=== PATIENT | male | born 1960 | race Caucasian/White ===

== ENCOUNTER 2022-02-19 12:11 | Emergency (ER) | payer OTHER, SELFPAY ==
--- NOTE | ~2022-02-19 | XR_ITS ---
EXAMINATION: XR CHEST CLINICAL INFORMATION: Shortness of breath for several days. Recently worsening. COMPARISON: None TECHNIQUE: 2 views of the chest were obtained. FINDINGS: The lungs are clear. There is no airspace consolidation or groundglass opacity or effusion. No hyperinflation. The costophrenic sulci are clear. There is no pneumothorax or pleural reaction. The heart is normal in size. The hilar and mediastinal contours are normal. Bony structures are unremarkable. XR/XR chest 2V IMPRESSION: Unremarkable examination.
--- NOTE | 2022-02-19 12:16 | ED.SOB ---
HPI - SOB/Dyspnea General Chief Complaint: Dyspnea <ORVILLE Marx - Last Filed: 02/19/22 12:23> Stated Complaint: Difficulty breathing <ORVILLE Marx - Last Filed: 02/19/22 12:23> Time Seen by Provider: 02/19/22 16:01 <ORVILLE Marx - Last Filed: 02/19/22 12:23> Source: patient and family <Renate Gonzalez MD - Last Filed: 02/19/22 17:48> Mode of arrival: ambulatory <Renate Gonzalez MD - Last Filed: 02/19/22 17:48> History of Present Illness HPI Narrative: This is a 62-year-old male who [facility] increasing [facility], he has been worked up by his primary care provider and currently has a repeat in sleep study and pulmonary appointment scheduled in April and May respectively. Patient denies any associated laboratory derangements as he was fully re-evaluated by his primary care provider. He has had no recent travel/no unilateral calf swelling/no palpitations/no dizziness/no chest pain and has actually increased his level of activity due to a semi recent injection for his sciatica. Patient does report that the week of he did experience some cold/flu like symptoms tested himself once for COVID-19 and says that the symptoms resolved in 2-3 days. <Renate Gonzalez MD - Last Filed: 02/19/22 17:48> Related Data Allergies/Adverse Reactions: Allergies Allergy/AdvReac Type Severity Reaction Status Date / Time NSAIDS (Non-Steroidal Allergy Severe other Verified 02/19/22 12:20 Anti-Inflamma <ORVILLE Marx - Last Filed: 02/19/22 12:23> Review of Systems Review of Systems: Pertinent positives and negatives as stated in HPI <Renate Gonzalez MD - Last Filed: 02/19/22 17:48> PMFSH Past Medical History Source: nursing notes reviewed <Renate Gonzalez MD - Last Filed: 02/19/22 17:48> Social History Social History: Social History Advance Directives: Yes Advance Directives Information Provided: No Advance Directives on File: No <ORIVLLE Marx - Last Filed: 02/19/22 12:23> Physical Exam Vital Signs: Vital Signs: Last Vital Signs Temp 98.7 F 02/19/22 12:19 Pulse 70 02/19/22 12:19 Resp 20 02/19/22 12:19 BP 148/73 H 02/19/22 12:19 Pulse Ox 97 02/19/22 12:19 O2 Del Method 02/19/22 12:19 BMI result Body Mass Index 36.0 <ORVILLE Marx - Last Filed: 02/19/22 12:23> Vital Signs: Last Vital Signs Temp 98.7 F 02/19/22 12:19 Pulse 70 02/19/22 12:19 Resp 20 02/19/22 12:19 BP 148/73 H 02/19/22 12:19 Pulse Ox 97 02/19/22 12:19 O2 Del Method 02/19/22 12:19 BMI result Body Mass Index 36.0 VITAL SIGNS: Reviewed. GENERAL: Well developed, well nourished, in no acute distress. HEAD: Normocephalic/atraumatic EYES: PERRLA, EOMI LUNGS: Normal breath sounds. No adventitious sounds or accessory muscle use, no tachypnea. SpO2<97> CARDIOVASCULAR: Regular rate and rhythm without noted murmurs, no JVD or lower extremity edema. ABDOMEN: Soft, non-tender, non-distended with bowel sounds. MUSCULOSKELETAL: No tenderness, deformities, or effusions noted on gross inspection. EXTREMITIES: No cyanosis, clubbing or edema. SKIN: Inspection of the skin reveals no rashes NEUROLOGIC: Alert and oriented x 4. Strength and sensation to light touch were grossly intact x 4. <Renate Gonzalez MD - Last Filed: 02/19/22 17:48> Course Course Course Narrative: RME--62 yo M w/PMHx DM c/o worsening orthopnea x3 days, now with SOB standing x today. Reports feels like he cannot take deep breath. Pt appears SOB in triage with long sentences, lungs CTA, No appreciable pedal edema EKG, Labs, CXR, COVID/flu/RSV ordered in triage <ORVILLE Marx - Last Filed: 02/19/22 12:23> Medical Decision Making Medical Decision Making MDM Narrative: 62-year-old male who presents with shortness of breath and insomnia. 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 Patient states he is currently followed by b2b sales manager through the CT. my interpretation of the workup is that there is no evidence acute infection and given patient's history regarding chronic kidney disease and the absence of reported bleeding that the anemia seen is chronic in nature it is normocytic. Patient has known chronic kidney disease and on discussing with the patient his potassium levels which do not seem to translate to his EKG he states that ?yes my b2b sales manager is aware?. Otherwise, there is no evidence to suggest CHF/PE/cardiac ischemia. All results discussed with the patient at bedside and discussed additional measures for sleep hygiene in the possibility that his recent viral illness was likely contributing to his feelings of shortness of breath. I discussed with patient that I have very low clinical suspicion regarding any PE as he is not describe to me any palpitations or dizziness and EKG is negative for evidence of any heart strain, blood pressure is within normal limits and oxygenation is very good on room air. He is otherwise discharged home in stable condition. Viral testing is negative. <Renate Gonzalez MD - Last Filed: 02/19/22 17:48> Differential Diagnosis Differential Diagnoses: The differential diagnosis associated with the presentation includes <Renate Gonzalez MD - Last Filed: 02/19/22 17:48> I will rule out infection, anemia, electrolyte or renal dysfunction, viral illness, cardiac ischemia. <Renate Gonzalez MD - Last Filed: 02/19/22 17:48> Lab Data [facility] Lab Attestation statement: I reviewed the patient's lab results. <Renate Gonzalez MD - Last Filed: 02/19/22 17:48> Please see the discussion above <Renate Gonzalez MD - Last Filed: 02/19/22 17:48> Result Diagrams: : 02/19/22 12:32 02/19/22 12:32 <ORVILLE Marx - Last Filed: 02/19/22 12:23> Labs: Lab Results 02/19/22 02/19/22 02/19/22 Range/Units 12:32 12:32 12:32 WBC 5.8 (4.8-10.8) X10*3/uL RBC 4.08 L (4.60-5.80) X10*6/uL Hgb 12.0 L (14.0-18.0) g/dl Hct 36.3 L (42.0-52.0) % MCV 89.0 (80.0-98.0) fL MCH 29.4 (27.0-33.0) pg MCHC 33.1 (31.0-36.0) g/dl RDW 12.6 (11.0-16.0) % Plt Count 184 (160-400) X10*3/uL MPV 9.1 L (9.4-12.4) fL Immature Gran % (Auto) 0.7 H (0.0-0.4) % Neut % (Auto) 66.8 (45-73) % Lymph % (Auto) 20.7 (20-40) % [place] % (Auto) 8.8 (2-11) % Eos % (Auto) 2.8 (0-4) % Baso % (Auto) 0.2 (0-2) % Lymph # (Auto) 1.2 (1.2-4.9) X10*3/uL [place] # (Auto) 0.5 (0.1-1.2) X10*3/uL Eos # (Auto) 0.2 (0.0-0.4) X10*3/uL Baso # (Auto) 0.0 (0.0-0.2) X10*3/uL Abs Immat Gran (auto) 0.04 H (0.00-0.03) X10*3/uL Absolute Neuts (auto) 3.9 (2.0-8.3) x10*3/uL Absolute Nucleated RBC 0.000 (0.0-0.012) X10*3/uL Nucleated RBC % (auto) 0.0 (0.0-0.2) /100WBC PT 10.4 (10.0-13.1) SEC INR 0.9 (0.9-1.1) Sodium (135-145) mmol/L Potassium (3.3-5.1) mmol/L Chloride (96-108) mmol/L Carbon Dioxide (22-29) mmol/L Anion Gap (12-20) BUN (9-16) mg/dL Creatinine (0.5-1.4) mg/dL Estim Creat Clear Calc Estimated GFR Random Glucose (60-115) mg/dL Calcium (8.4-10.2) mg/dL Magnesium (1.6-2.6) mg/dL Total Bilirubin (0.0-1.0) mg/dL Direct Bilirubin (0.0-0.5) mg/dL AST (5-37) U/L ALT (0-40) U/L Alkaline Phosphatase (39-117) U/L Troponin I High Sens (<3.5-35.0) ng/L B-Natriuretic Peptide (<100) pg/mL Total Protein (6.5-8.0) g/dL Albumin (3.5-5.0) g/dL Influenza Type A (PCR) NEGATIVE (Negative) Influenza Type B (PCR) NEGATIVE (Negative) RSV RNA Qual (PCR) NEGATIVE (Negative) SARS-CoV-2 RNA (RT-PCR) NEGATIVE (Negative) 02/19/22 02/19/22 02/19/22 Range/Units 12:32 12:32 12:32 WBC (4.8-10.8) X10*3/uL RBC (4.60-5.80) X10*6/uL Hgb (14.0-18.0) g/dl Hct (42.0-52.0) % MCV (80.0-98.0) fL MCH (27.0-33.0) pg MCHC (31.0-36.0) g/dl RDW (11.0-16.0) % Plt Count (160-400) X10*3/uL MPV (9.4-12.4) fL Immature Gran % (Auto) (0.0-0.4) % Neut % (Auto) (45-73) % Lymph % (Auto) (20-40) % [place] % (Auto) (2-11) % Eos % (Auto) (0-4) % Baso % (Auto) (0-2) % Lymph # (Auto) (1.2-4.9) X10*3/uL [place] # (Auto) (0.1-1.2) X10*3/uL Eos # (Auto) (0.0-0.4) X10*3/uL Baso # (Auto) (0.0-0.2) X10*3/uL Abs Immat Gran (auto) (0.00-0.03) X10*3/uL Absolute Neuts (auto) (2.0-8.3) x10*3/uL Absolute Nucleated RBC (0.0-0.012) X10*3/uL Nucleated RBC % (auto) (0.0-0.2) /100WBC PT (10.0-13.1) SEC INR (0.9-1.1) Sodium 143 (135-145) mmol/L Potassium 5.2 H (3.3-5.1) mmol/L Chloride 107 (96-108) mmol/L Carbon Dioxide 29 (22-29) mmol/L Anion Gap 12 (12-20) BUN 49 H (9-16) mg/dL Creatinine 2.16 H (0.5-1.4) mg/dL Estim Creat Clear Calc 41.3 Estimated GFR 31 Random Glucose 193 H (60-115) mg/dL Calcium 9.0 (8.4-10.2) mg/dL Magnesium 2.4 (1.6-2.6) mg/dL Total Bilirubin 0.3 (0.0-1.0) mg/dL Direct Bilirubin < 0.2 (0.0-0.5) mg/dL AST 11 (5-37) U/L ALT 17 (0-40) U/L Alkaline Phosphatase 51 (39-117) U/L Troponin I High Sens 7.6 (<3.5-35.0) ng/L B-Natriuretic Peptide 38 (<100) pg/mL Total Protein 6.2 L (6.5-8.0) g/dL Albumin 4.1 (3.5-5.0) g/dL Influenza Type A (PCR) (Negative) Influenza Type B (PCR) (Negative) RSV RNA Qual (PCR) (Negative) SARS-CoV-2 RNA (RT-PCR) (Negative) <ORIVLLE Marx - Last Filed: 02/19/22 12:23> Lab Results 01/03/23 01/03/23 01/03/23 Range/Units 12:32 12:32 12:32 WBC 5.8 (4.8-10.8) X10*3/uL RBC 4.08 L (4.60-5.80) X10*6/uL Hgb 12.0 L (14.0-18.0) g/dl Hct 36.3 L (42.0-52.0) % MCV 89.0 (80.0-98.0) fL MCH 29.4 (27.0-33.0) pg MCHC 33.1 (31.0-36.0) g/dl RDW 12.6 (11.0-16.0) % Plt Count 184 (160-400) X10*3/uL MPV 9.1 L (9.4-12.4) fL Immature Gran % (Auto) 0.7 H (0.0-0.4) % Neut % (Auto) 66.8 (45-73) % Lymph % (Auto) 20.7 (20-40) % [place] % (Auto) 8.8 (2-11) % Eos % (Auto) 2.8 (0-4) % Baso % (Auto) 0.2 (0-2) % Lymph # (Auto) 1.2 (1.2-4.9) X10*3/uL [place] # (Auto) 0.5 (0.1-1.2) X10*3/uL Eos # (Auto) 0.2 (0.0-0.4) X10*3/uL Baso # (Auto) 0.0 (0.0-0.2) X10*3/uL Abs Immat Gran (auto) 0.04 H (0.00-0.03) X10*3/uL Absolute Neuts (auto) 3.9 (2.0-8.3) x10*3/uL Absolute Nucleated RBC 0.000 (0.0-0.012) X10*3/uL Nucleated RBC % (auto) 0.0 (0.0-0.2) /100WBC PT 10.4 (10.0-13.1) SEC INR 0.9 (0.9-1.1) Sodium (135-145) mmol/L Potassium (3.3-5.1) mmol/L Chloride (96-108) mmol/L Carbon Dioxide (22-29) mmol/L Anion Gap (12-20) BUN (9-16) mg/dL Creatinine (0.5-1.4) mg/dL Estim Creat Clear Calc Estimated GFR Random Glucose (60-115) mg/dL Calcium (8.4-10.2) mg/dL Magnesium (1.6-2.6) mg/dL Total Bilirubin (0.0-1.0) mg/dL Direct Bilirubin (0.0-0.5) mg/dL AST (5-37) U/L ALT (0-40) U/L Alkaline Phosphatase (39-117) U/L Troponin I High Sens (<3.5-35.0) ng/L B-Natriuretic Peptide (<100) pg/mL Total Protein (6.5-8.0) g/dL Albumin (3.5-5.0) g/dL Influenza Type A (PCR) NEGATIVE (Negative) Influenza Type B (PCR) NEGATIVE (Negative) RSV RNA Qual (PCR) NEGATIVE (Negative) SARS-CoV-2 RNA (RT-PCR) NEGATIVE (Negative) 02/19/22 02/19/22 02/19/22 Range/Units 12:32 12:32 12:32 WBC (4.8-10.8) X10*3/uL RBC (4.60-5.80) X10*6/uL Hgb (14.0-18.0) g/dl Hct (42.0-52.0) % MCV (80.0-98.0) fL MCH (27.0-33.0) pg MCHC (31.0-36.0) g/dl RDW (11.0-16.0) % Plt Count (160-400) X10*3/uL MPV (9.4-12.4) fL Immature Gran % (Auto) (0.0-0.4) % Neut % (Auto) (45-73) % Lymph % (Auto) (20-40) % [place] % (Auto) (2-11) % Eos % (Auto) (0-4) % Baso % (Auto) (0-2) % Lymph # (Auto) (1.2-4.9) X10*3/uL [place] # (Auto) (0.1-1.2) X10*3/uL Eos # (Auto) (0.0-0.4) X10*3/uL Baso # (Auto) (0.0-0.2) X10*3/uL Abs Immat Gran (auto) (0.00-0.03) X10*3/uL Absolute Neuts (auto) (2.0-8.3) x10*3/uL Absolute Nucleated RBC (0.0-0.012) X10*3/uL Nucleated RBC % (auto) (0.0-0.2) /100WBC PT (10.0-13.1) SEC INR (0.9-1.1) Sodium 143 (135-145) mmol/L Potassium 5.2 H (3.3-5.1) mmol/L Chloride 107 (96-108) mmol/L Carbon Dioxide 29 (22-29) mmol/L Anion Gap 12 (12-20) BUN 49 H (9-16) mg/dL Creatinine 2.16 H (0.5-1.4) mg/dL Estim Creat Clear Calc 41.3 Estimated GFR 31 Random Glucose 193 H (60-115) mg/dL Calcium 9.0 (8.4-10.2) mg/dL Magnesium 2.4 (1.6-2.6) mg/dL Total Bilirubin 0.3 (0.0-1.0) mg/dL Direct Bilirubin < 0.2 (0.0-0.5) mg/dL AST 11 (5-37) U/L ALT 17 (0-40) U/L Alkaline Phosphatase 51 (39-117) U/L Troponin I High Sens 7.6 (<3.5-35.0) ng/L B-Natriuretic Peptide 38 (<100) pg/mL Total Protein 6.2 L (6.5-8.0) g/dL Albumin 4.1 (3.5-5.0) g/dL Influenza Type A (PCR) (Negative) Influenza Type B (PCR) (Negative) RSV RNA Qual (PCR) (Negative) SARS-CoV-2 RNA (RT-PCR) (Negative) <Renate Gonzalez MD - Last Filed: 02/19/22 17:48> Independent Interpretation I performed an independent interpretation of an: EKG <Renate Gonzalez MD - Last Filed: 02/19/22 17:48> Interpretation: None for comparison. Normal sinus rhythm, HR-64, no STEMI, LA/QRS/QTC is within normal limits. <Renate Gonzalez MD - Last Filed: 02/19/22 17:48> Radiology Impression Radiologist Impression: My interpretation is in agreement with the radiologist's impression radiologic study. <Renate Gonzalez MD - Last Filed: 02/19/22 17:48> Chronic Conditions Patient?s care impacted by: Diabetes and Hypertension <Renate Gonzalez MD - Last Filed: 02/19/22 17:48> Critical Care Time Critical Care Time Critical Care Time: Yes <Renate Gonzalez MD - Last Filed: 02/19/22 17:48> Total Critical Care Time: 30 <Renate Gonzalez MD - Last Filed: 02/19/22 17:48> Attestation: I personally attest to this time spent taking care of the patient. <Renate Gonzalez MD - Last Filed: 02/19/22 17:48> Discharge Plan Discharge Clinical Impression: Insomnia, Breath shortness <ORVILLE Marx - Last Filed: 02/19/22 12:23> Patient Disposition: Home, Self-Care <ORVILLE Marx - Last Filed: 02/19/22 12:23> Instructions: Insomnia (ED), Shortness of Breath (ED) <ORVILLE Marx - Last Filed: 02/19/22 12:23> Additional Instructions: 1. Resume all home medications as prescribed. My recommendation is to discussed with your primary care provider pursuing a cardiac stress test. 2. I recommend that you [facility] in the [facility] 1-2 days. Return to the ER for any worsening symptoms. <ORVILLE Marx - Last Filed: 02/19/22 12:23> Interventions: ED Discharge Assessment Last Done: 02/19/22 17:23 <ORVILLE Marx - Last Filed: 02/19/22 12:23> Discharge Date/Time: 02/19/22 17:24 <ORVILLE Marx - Last Filed: 02/19/22 12:23>
[2022-02-19 12:19] VITALS: BP 148/73; PULSE 70; RESP 20; TEMP 37.1; O2SAT 97; BMI 36.0
--- NOTE | 2022-02-19 12:21 | ECG_ITS ---
Test Reason : SOB Blood Pressure : / mmHG Vent. Rate : 064 BPM Atrial Rate : 064 BPM P-R Int : 146 ms QRS Dur : 076 ms QT Int : 392 ms P-R-T Axes : 049 -27 036 degrees QTc Int : 404 ms Normal sinus rhythm Normal ECG No previous ECGs available Referred By: Kim Villanueva Electronically Signed By:ASHER JHA
[2022-02-19 12:43] LABS: MANUAL DIFF FLAG NO
[2022-02-19 12:45] LABS: Basophils Percent Auto 0.2 % (0-2); Eosinophils Absolute Auto 0.2 X10*3/uL (0.0-0.4); Eosinophils Percent Auto 2.8 % (0-4); Hematocrit 36.3 % (42.0-52.0); Imm Gran Abs Auto 0.04 X10*3/uL (0.00-0.03); Imm Gran Pct Auto 0.7 % (0.0-0.4); Lymphocytes Absolute Auto 1.2 X10*3/uL (1.2-4.9); Lymphocytes Percent Auto 20.7 % (20-40); Mean Corpuscular HGB Conc 33.1 g/dl (31.0-36.0); Mean Corpuscular Hemoglobin 29.4 pg (27.0-33.0); Mean Platelet Volume 9.1 fL (9.4-12.4); Monocytes Absolute Auto 0.5 X10*3/uL (0.1-1.2); Monocytes Percent Auto 8.8 % (2-11); Neutrophils Absolute Auto 3.9 x10*3/uL (2.0-8.3); Neutrophils Percent Auto 66.8 % (45-73); Platelet Count 184 X10*3/uL (160-400); Red Blood Count 4.08 X10*6/uL (4.60-5.80); Red Cell Distribution Width 12.6 % (11.0-16.0); White Blood Count 5.8 X10*3/uL (4.8-10.8)
[2022-02-19 12:49] LABS: INTERNATIONAL NORM RATIO 0.9 (0.9-1.1); Prothrombin Time 10.4 SEC (10.0-13.1)
[2022-02-19 13:03] LABS: Alanine Aminotransferase 17 U/L (0-40); Albumin Level 4.1 g/dL (3.5-5.0); Alkaline Phosphatase 51 U/L (39-117); Anion Gap 12 (12-20); Aspartate Amino Transferase 11 U/L (5-37); Bilirubin Direct < 0.2 mg/dL (0.0-0.5); Bilirubin Total 0.3 mg/dL (0.0-1.0); Blood Urea Nitrogen 49 mg/dL (9-16); Carbon Dioxide 29 mmol/L (22-29); Chloride 107 mmol/L (96-108); Creatinine Clr Calc Pharmacy 41.3; Estimated Glomerular Filt Rate 31; Glucose Random 193 mg/dL (60-115); Magnesium 2.4 mg/dL (1.6-2.6); Potassium 5.2 mmol/L (3.3-5.1); Sodium 143 mmol/L (135-145); Total Protein 6.2 g/dL (6.5-8.0)
[2022-02-19 13:09] LABS: B Type Natriuretic Peptide 38 pg/mL (<100); Troponin-I High Sensitivity 7.6 ng/L (<3.5-35.0)
[2022-02-19 13:23] LABS: Influenza A PCR NEGATIVE (Negative); Influenza B PCR NEGATIVE (Negative); Resp Syncy Virus RNA Qual PCR NEGATIVE (Negative); SARS COV2 PCR INHOUSE NEGATIVE (Negative)
== END 2022-02-19 17:24 | disposition home or self-care (01) ==
PROVIDERS: Physician Assistant; Emergency Provider Student in an Organized Health Care Education/Training Program
DX: G47.00 Insomnia, unspecified (principal); R06.02 Shortness of breath; E11.9 Type 2 diabetes mellitus without complications; I10 Essential (primary) hypertension; Z20.822 Contact with and (suspected) exposure to COVID-19
CPT/HCPCS: 0241U; 36415; 71046; 80048; 80076; 83735; 83880; 84484; 85025; 85610; 93005; 99283

== ENCOUNTER 2022-07-10 13:40 | Emergency (ER) | payer OTHER, SELFPAY ==
--- NOTE | ~2022-07-10 | US_ITS ---
EXAMINATION: US VENOUS ULTRASOUND WITH DOPPLER LOWER EXTREMITY, RIGHT CLINICAL INFORMATION: Lower extremity pain with palpable lump. Rule out DVT COMPARISON: None available. TECHNIQUE: Ultrasound of the deep veins is performed from the hip to the calf with compression sonography and color and pulse Doppler assessment. Spectral analysis with color-flow imaging is performed. FINDINGS: There is normal venous compression and respiratory variation and augmented flow. The visualized common femoral vein, superficial femoral vein, profunda femoral vein, popliteal vein, and the trifurcation region shows no evidence of deep venous thrombosis. There is no significant popliteal fossa cyst. In region of patient's complaint about the medial knee adjacent to the popliteal fossa there is an enlarged varicose vein with some adjacent tissue planes not being well seen which may be related to some degree of edema with no free fluid seen. There appears be some debris within the varicosity and above findings may be related to thrombophlebitis. US/US venous duplex LE RT IMPRESSION: No acute DVT demonstrated in the right lower extremity. Thrombophlebitis of varicosity in region of patient's complaint.
--- NOTE | 2022-07-10 13:55 | ED.LOWEXIN ---
HPI - Extremity Injury (Lower) General Chief Complaint: Extremity Injury, Lower Stated Complaint: ? DVT Time Seen by Provider: 07/10/22 15:36 History of Present Illness HPI Narrative: patient complains of swollen vein on the medial side of the right knee a small bump that he felt, he went to urgent [facility] was sent to the emergency room for no ultrasound to rule out DVT He denies any pain or swelling in the calf or in the back of the thigh, he denies any injury to the leg, he has no shortness of breath no chest pain no pain with deep breath no cough Related Data Allergies Allergy/AdvReac Type Severity Reaction Status Date / Time NSAIDS (Non-Steroidal Allergy Severe other Verified 07/10/22 13:57 Anti-Inflamma hazelnut Allergy Unknown Verified 07/10/22 13:57 [facility] Past Medical History Source: nursing notes reviewed Social History Social History Advance Directives: No Advance Directives Information Provided: Yes Physical Exam Vital Signs: Vital Signs: Last Vital Signs Temp 98.5 F 07/10/22 16:19 Pulse 58 07/10/22 16:19 Resp 17 07/10/22 16:19 BP 140/75 H 07/10/22 16:19 Pulse Ox 98 07/10/22 16:19 O2 Del Method Room Air 07/10/22 16:19 BMI result Body Mass Index 35.2 general appearance no acute distress Head normocephalic atraumatic neck is supple Chest is clear to auscultation bilateral there is no chest wall tenderness Lung sounds are clear full and equal There is no pleuritic pain with deep breath Extremities there is no pedal edema , full range of motion x4 The right medial knee and the lower leg just below the knee there is a varicosity that is slightly palpable, there is no calf tenderness or swelling there is no posterior thigh tenderness or swelling, skin is intact and neurovascular intact distal Patient ambulates with no limp Course Course Course Narrative: RME: 62 yo M w/PMHx DM, sciatica, presenting to the ED from for DVT rule out c/o pain behind R knee w/palpable lump. denies SOB, travel, cigarette smoking, hx clots +small palpable lump to R posterior knee. 1+ b/l LE pitting edema US venous duplex ordered Full HPI, ROS and PE to be performed by primary ED provider. ultrasound was negative for DVT and it noted thrombophlebitis of a varicosity in the region of the patient's complaint Well-appearing patient is advised to use warm soaks and observe the area and to follow with primary doctor for re-evaluation in 1 week if not improved Discharge Plan Discharge Clinical Impression: Thrombophlebitis leg superficial Patient Disposition: Home, Self-Care Additional Instructions: apply warm soaks to the area Follow with your doctor for re-evaluation in 1 week if not better Return to the ER should you develop calf swelling pain in the back of the leg pain in the back of the thigh and we would repeat the ultrasound Most superficial phlebitis resolves on its own Return any time for difficulty breathing chest pain any worse condition or any concerns Interventions: ED Discharge Assessment Last Done: 07/10/22 17:25 Discharge Date/Time: 07/10/22 17:25
[2022-07-10 13:57] VITALS: BP 142/69; PULSE 67; RESP 18; TEMP 36.6; O2SAT 95; BMI 35.2
[2022-07-10 16:19] VITALS: BP 140/75; PULSE 58; RESP 17; TEMP 36.9; O2SAT 98
== END 2022-07-10 17:25 | disposition home or self-care (01) ==
PROVIDERS: Emergency Provider Emergency Medicine
DX: I80.02 Phlebitis and thrombophlebitis of superficial vessels of left lower extremity (principal); R60.0 Localized edema
CPT/HCPCS: 93971; 99283; 99284

== ENCOUNTER → 2023-02-26 15:47 | Outpatient (BNVA) | payer OTHER, SELFPAY | PROVIDERS: Visit Provider Internal Medicine Nephrology ==

== ENCOUNTER 2023-06-03 09:27 | Outpatient (REF) | payer OTHER, SELFPAY ==
[2023-06-03 11:31] LABS: Anion Gap 12 (12-20); Blood Urea Nitrogen 57 mg/dL (9-16); Carbon Dioxide 25 mmol/L (22-29); Chloride 104 mmol/L (96-108); Estimated Glomerular Filt Rate 30; Potassium 5.1 mmol/L (3.3-5.1); Sodium 136 mmol/L (135-145)
[2023-06-03 12:46] LABS: Creatinine Urine 54.29 mg/dL; Protein/Creatinine Ratio, Ur 1.68 (<0.2); Total Protein Urine Random 91 mg/dL (<12)
== END 2023-06-03 09:28 | disposition home or self-care (01) ==
LOC: HO.10HDL 09:27
PROVIDERS: Visit Provider Internal Medicine Nephrology
DX: I12.9 Hypertensive chronic kidney disease with stage 1 through stage 4 chronic kidney disease, or unspecified chronic kidney disease (principal); N18.31 Chronic kidney disease, stage 3a; R80.9 Proteinuria, unspecified
CPT/HCPCS: 36415; 80051; 82565; 82570; 84156; 84520

== ENCOUNTER 2023-06-04 16:03 | Outpatient (AMB) | payer OTHER, SELFPAY ==
[2023-06-04 16:10] VITALS: BP 124/72; PULSE 75; O2SAT 96; BMI 35.9
--- NOTE | 2023-06-04 16:10 | HO.NEPHOV_ITS ---
HPI HPI Comments History of Present Illness Details I had the pleasure seeing Braden in follow-up of his chronic kidney disease, proteinuria on a backdrop of biopsy-proven primary FSGS in the past. He had a renal biopsy which showed FSGS and diabetic nephropathy. His blood sugars are still running high but better. He has lost some weight on Ozempic. He is tolerating Jardiance well. He was on sparsentan which has been changed to Irbesartan. His blood pressure has been at goal. He has no edema. His proteinuria is stable. He has not had any recent medication changes. [facility] Medical History (Updated 02/26/23 @ 16:48 by Gato Álvarez MD) Hypertension FSGS (focal segmental glomerulosclerosis) with nephrosis Chronic kidney disease, stage 3a Proteinuria Surgical History History of tonsillectomy and adenoidectomy History of prostate surgery History of back surgery Social History Alcohol intake: never Patient Tobacco Use Status: Former Tobacco user Vital Signs 06/04/23 16:10 Height 5 ft 7 in Weight 229 lb BMI 35.9 BP 124/72 Blood Pressure Location Rt brachial Position Sitting Pulse 75 Pulse Source Pulse Oximeter Pulse Oximetry (%) 96 Oxygen Delivery Method Room Air Physical Exam Vital Signs: Last Vital Signs Pulse 75 06/04/23 16:10 BP 124/72 06/04/23 16:10 Pulse Ox 96 06/04/23 16:10 Oxygen Delivery Method Room Air 06/04/23 16:10 BMI result Body Mass Index 35.9 Const General: comfortable and no acute distress Orientation/consciousness: patient oriented x3 HEENT Head: Yes normocephalic Mouth: Normal oral and palatal mucosa present Eyes EOM: EOMs intact bilaterally Neck Neck: Yes supple Resp Auscultation: clear to auscultation bilaterally Cardio Jugular venous distension: no JVD Rate: regular rate GI Palpation (GI): Soft to palpation Auscultation: normal bowel sounds General: Yes no CVA tenderness Back/Spine/Pelvis Back: no CVA tenderness Skin General skin exam: no rashes or lesions noted Neuro General: patient oriented x3 and moves all extremities Extrem General: Yes no pedal edema Assessment & Plan Assessment & Plan (1) Proteinuria: Code(s): R80.9 - Proteinuria, unspecified Qualifiers: Proteinuria type: other Qualified Code(s): R80.8 - Other proteinuria (2) Chronic kidney disease, stage 3a: Code(s): N18.31 - Chronic kidney disease, stage 3a (3) FSGS (focal segmental glomerulosclerosis) with nephrosis: Code(s): N04.1 - Nephrotic syndrome with focal and segmental glomerular lesions (4) Hypertension: Code(s): I10 - Essential (primary) hypertension Qualifiers: Hypertension type: secondary to other renal disorders Qualified Code(s): I15.1 - Hypertension secondary to other renal disorders Plan Braden carries a diagnosis of biopsy-proven primary FSGS. He has taken immunosuppression in the past. He has history of prostate cancer needing surgery. His blood pressure is currently at goal. He had been on sparsentan which was changed to Irbesartan( as he is not in the FSGS study anymore) . His proteinuria and his serum creatinine are stable. He is on Jardiance. He has no retinopathy or neuropathy. He needs to lose more weight and keeps his blood sugar under better control. He avoids nonsteroidal anti-inflammatories and maintain good hydration. I did not make any medication changes today. I reiterated the importance of blood sugar control, lifestyle modification, weight loss and importance of monitoring potassium, renal functions and urine protein. I answered all his questions. No prescription refills done today. ( I had offered a referral to Dr. Aviles in the past ( [facility]) who has done a lot of work on FSGS but the patient wanted to think about it. This was not addressed during this visit. Follow-up labs ordered and F/U given. was present during this visit Orders: Orders Blood Urea Nitrogen 06/04/23 I15.1 - Hypertension secondary to other renal disorders, N04.1 - Nephrotic syndrome with focal and segmental glomerular lesions, N18.31 - Chronic kidney disease, stage 3a, R80.8 - Other proteinuria Electrolytes 06/04/23 I15.1 - Hypertension secondary to other renal disorders, N04.1 - Nephrotic syndrome with focal and segmental glomerular lesions, N18.31 - Chronic kidney disease, stage 3a, R80.8 - Other proteinuria Protein Creatinine Ratio, Ur 06/04/23 I15.1 - Hypertension secondary to other renal disorders, N04.1 - Nephrotic syndrome with focal and segmental glomerular lesions, N18.31 - Chronic kidney disease, stage 3a, R80.8 - Other proteinuria Creatinine 06/04/23 I15.1 - Hypertension secondary to other renal disorders, N04.1 - Nephrotic syndrome with focal and segmental glomerular lesions, N18.31 - Chronic kidney disease, stage 3a, R80.8 - Other proteinuria Coding Level of Care Code Est Pt Level 4 (96837) Diagnoses Other proteinuria R80.8 Proteinuria type: other Chronic kidney disease, stage 3a N18.31 FSGS (focal segmental glomerulosclerosis) with nephrosis N04.1 Hypertension secondary to other renal disorders I15.1 Hypertension type: secondary to other renal disorders Results Reviewed Nephrology Results: 2 Hgb 12.0 g/dl (14.0-18.0) L 02/19/22 WBC 5.8 X10*3/uL (4.8-10.8) 02/19/22 Plt Count 184 X10*3/uL (160-400) 02/19/22 Sodium 136 mmol/L (135-145) 06/03/23 Potassium 5.1 mmol/L (3.3-5.1) 06/03/23 Chloride 104 mmol/L (96-108) 06/03/23 Carbon Dioxide 25 mmol/L (22-29) 06/03/23 BUN 57 mg/dL (9-16) H 06/03/23 Creatinine 2.25 mg/dL (0.5-1.4) H 06/03/23 Calcium 9.0 mg/dL (8.4-10.2) 02/19/22 Urine Creatinine 54.29 mg/dL 06/03/23 Protein/Creatinin Ratio 1.68 (<0.2) H 06/03/23
== END 2023-06-04 16:45 | disposition home or self-care (01) ==
PROVIDERS: Visit Provider Internal Medicine Nephrology
DX: R80.8 Other proteinuria (principal); N18.31 Chronic kidney disease, stage 3a; N04.1 Nephrotic syndrome with focal and segmental glomerular lesions; I15.1 Hypertension secondary to other renal disorders
CPT/HCPCS: 99214

== ENCOUNTER → 2023-06-04 16:03 | Outpatient (BNVA) | payer OTHER, SELFPAY | PROVIDERS: Visit Provider Internal Medicine Nephrology | DX: I15.1 Hypertension secondary to other renal disorders (principal); N18.31 Chronic kidney disease, stage 3a; N04.1 Nephrotic syndrome with focal and segmental glomerular lesions; R80.8 Other proteinuria | CPT/HCPCS: 99212 ==

== ENCOUNTER 2023-09-03 16:01 | Outpatient (AMB) | payer OTHER, SELFPAY ==
--- NOTE | 2023-09-03 16:05 | HO.NEPHOV ---
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 He had a renal biopsy which showed FSGS and diabetic nephropathy. His blood sugars are still running high but better. He has lost some weight on Ozempic. He is tolerating Jardiance well. He was on sparsentan which has been changed to Irbesartan. His blood pressure has been at goal. He has no edema. His proteinuria is stable. He has not had any recent medication changes. [facility] Medical History (Updated 02/26/23 @ 16:48 by Gato Álvarez MD) Hypertension FSGS (focal segmental glomerulosclerosis) with nephrosis Chronic kidney disease, stage 3a Proteinuria Surgical History History of tonsillectomy and adenoidectomy History of prostate surgery History of back surgery Social History Alcohol intake: never Patient Tobacco Use Status: Former Tobacco user Review of Systems Const All systems reviewed & are unremarkable except as noted in HPI and below Physical Exam Const General: comfortable and no acute distress Orientation/consciousness: patient oriented x3 HEENT Head: Yes normocephalic Mouth: Normal oral and palatal mucosa present Eyes EOM: EOMs intact bilaterally Neck Neck: Yes supple Resp Auscultation: clear to auscultation bilaterally Cardio Jugular venous distension: no JVD Rate: regular rate GI Palpation (GI): Soft to palpation Auscultation: normal bowel sounds General: Yes no CVA tenderness Back/Spine/Pelvis Back: no CVA tenderness Skin General skin exam: no rashes or lesions noted Neuro General: patient oriented x3 and moves all extremities Extrem General: Yes no pedal edema Results Reviewed Nephrology Results: Hgb 12.0 g/dl (14.0-18.0) L 02/19/22 WBC 5.8 X10*3/uL (4.8-10.8) 02/19/22 Plt Count 184 X10*3/uL (160-400) 02/19/22 Sodium 136 mmol/L (135-145) 06/03/23 Potassium 5.1 mmol/L (3.3-5.1) 06/03/23 Chloride 104 mmol/L (96-108) 06/03/23 Carbon Dioxide 25 mmol/L (22-29) 06/03/23 BUN 57 mg/dL (9-16) H 06/03/23 Creatinine 2.25 mg/dL (0.5-1.4) H 06/03/23 Calcium 9.0 mg/dL (8.4-10.2) 02/19/22 Urine Creatinine 54.29 mg/dL 06/03/23 Protein/Creatinin Ratio 1.68 (<0.2) H 06/03/23 Assessment & Plan Assessment & Plan (1) Chronic kidney disease, stage 3a: Code(s): N18.31 - Chronic kidney disease, stage 3a Category: Medical (2) Proteinuria: Code(s): R80.9 - Proteinuria, unspecified Category: Medical Qualifiers: Proteinuria type: other Qualified Code(s): R80.8 - Other proteinuria (3) Hypertension: Code(s): I10 - Essential (primary) hypertension Category: Medical Qualifiers: Hypertension type: secondary to other renal disorders Qualified Code(s): I15.1 - Hypertension secondary to other renal disorders (4) FSGS (focal segmental glomerulosclerosis) with nephrosis: Code(s): N04.1 - Nephrotic syndrome with focal and segmental glomerular lesions Category: Medical Plan Braden carries a diagnosis of biopsy-proven primary FSGS. He has taken immunosuppression in the past. He has history of prostate cancer needing surgery. His blood pressure is currently at goal. He had been on sparsentan which was changed to Irbesartan( as he is not in the FSGS study anymore) . His proteinuria and his serum creatinine are stable. He is on Jardiance. He has no retinopathy or neuropathy. He needs to lose more weight and keeps his blood sugar under better control. He avoids nonsteroidal anti-inflammatories and maintain good hydration. I did not make any medication changes today. I reiterated the importance of blood sugar control, lifestyle modification, weight loss and importance of monitoring potassium, renal functions and urine protein. I answered all his questions. No prescription refills done today. Follow-up labs ordered and F/U given. was present during this visit Orders: Orders Electrolytes Today I15.1 - Hypertension secondary to other renal disorders, N04.1 - Nephrotic syndrome with focal and segmental glomerular lesions, N18.31 - Chronic kidney disease, stage 3a, R80.8 - Other proteinuria Protein Creatinine Ratio, Ur Today I15.1 - Hypertension secondary to other renal disorders, N04.1 - Nephrotic syndrome with focal and segmental glomerular lesions, N18.31 - Chronic kidney disease, stage 3a, R80.8 - Other proteinuria Creatinine Today I15.1 - Hypertension secondary to other renal disorders, N04.1 - Nephrotic syndrome with focal and segmental glomerular lesions, N18.31 - Chronic kidney disease, stage 3a, R80.8 - Other proteinuria Blood Urea Nitrogen Today I15.1 - Hypertension secondary to other renal disorders, N04.1 - Nephrotic syndrome with focal and segmental glomerular lesions, N18.31 - Chronic kidney disease, stage 3a, R80.8 - Other proteinuria Coding Level of Care Code Est Pt Level 4 (00140) Diagnoses Chronic kidney disease, stage 3a N18.31 Other proteinuria R80.8 Proteinuria type: other Hypertension secondary to other renal disorders I15.1 Hypertension type: secondary to other renal disorders FSGS (focal segmental glomerulosclerosis) with nephrosis N04.1
[2023-09-03 16:10] VITALS: BP 128/78; PULSE 76; O2SAT 95; BMI 36.0
== END 2023-09-03 16:59 | disposition home or self-care (01) ==
PROVIDERS: Visit Provider Internal Medicine Nephrology
DX: N18.31 Chronic kidney disease, stage 3a (principal); R80.8 Other proteinuria; I15.1 Hypertension secondary to other renal disorders; N04.1 Nephrotic syndrome with focal and segmental glomerular lesions
CPT/HCPCS: 99214

== ENCOUNTER → 2023-09-03 16:01 | Outpatient (BNVA) | payer OTHER, SELFPAY | PROVIDERS: Visit Provider Internal Medicine Nephrology | DX: N18.31 Chronic kidney disease, stage 3a (principal); R80.8 Other proteinuria; I15.1 Hypertension secondary to other renal disorders; N04.1 Nephrotic syndrome with focal and segmental glomerular lesions | CPT/HCPCS: 99212 ==

== ENCOUNTER 2023-11-24 08:31 | Outpatient (REF) | payer OTHER, SELFPAY ==
[2023-11-24 11:01] LABS: Anion Gap 11 (12-20); Blood Urea Nitrogen 37 mg/dL (9-16); Carbon Dioxide 26 mmol/L (22-29); Chloride 106 mmol/L (96-108); Estimated Glomerular Filt Rate 31; Potassium 4.4 mmol/L (3.3-5.1); Sodium 139 mmol/L (135-145)
[2023-11-24 11:08] LABS: Creatinine Urine 30.57 mg/dL; Protein/Creatinine Ratio, Ur 2.32 (<0.2); Total Protein Urine Random 71 mg/dL (<12)
== END 2023-11-24 08:32 | disposition home or self-care (01) ==
LOC: HO.10HDL 08:31
PROVIDERS: Visit Provider Internal Medicine Nephrology
DX: N18.31 Chronic kidney disease, stage 3a (principal); I15.1 Hypertension secondary to other renal disorders; N04.1 Nephrotic syndrome with focal and segmental glomerular lesions; R80.8 Other proteinuria
CPT/HCPCS: 36415; 80051; 82565; 82570; 84156; 84520

== ENCOUNTER 2023-11-26 15:07 | Outpatient (AMB) | payer OTHER, SELFPAY ==
--- NOTE | 2023-11-26 15:16 | HO.NEPHOV_ITS ---
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 He had a renal biopsy which showed FSGS and diabetic nephropathy. His blood sugars are still running high but better. He has not lost weight on Ozempic. He is tolerating Jardiance well. He was on sparsentan which has been changed to Irbesartan. His blood pressure has been at goal. He has no edema. He has not had any recent medication changes. [facility] Medical History (Updated 02/26/23 @ 16:48 by Gato Álvarez MD) Hypertension FSGS (focal segmental glomerulosclerosis) with nephrosis Chronic kidney disease, stage 3a Proteinuria Surgical History History of tonsillectomy and adenoidectomy History of prostate surgery History of back surgery Social History Alcohol intake: never Patient Tobacco Use Status: Former Tobacco user Review of Systems Const All systems reviewed & are unremarkable except as noted in HPI and below Physical Exam Vital Signs: Last Vital Signs Pulse 68 11/26/23 15:18 BP 110/60 11/26/23 15:18 Pulse Ox 97 11/26/23 15:18 Oxygen Delivery Method Room Air 11/26/23 15:18 BMI result Body Mass Index 36.5 Const General: comfortable and no acute distress Orientation/consciousness: patient oriented x3 HEENT Head: Yes normocephalic Mouth: Normal oral and palatal mucosa present Eyes EOM: EOMs intact bilaterally Neck Neck: Yes supple Resp Auscultation: clear to auscultation bilaterally Cardio Jugular venous distension: no JVD Rate: regular rate GI Palpation (GI): Soft to palpation Auscultation: normal bowel sounds General: Yes no CVA tenderness Back/Spine/Pelvis Back: no CVA tenderness Skin General skin exam: no rashes or lesions noted Neuro General: patient oriented x3 and moves all extremities Extrem General: Yes no pedal edema Results Reviewed Nephrology Results: Hgb 12.0 g/dl (14.0-18.0) L 02/19/22 WBC 5.8 X10*3/uL (4.8-10.8) 02/19/22 Plt Count 184 X10*3/uL (160-400) 02/19/22 Sodium 139 mmol/L (135-145) 11/24/23 Potassium 4.4 mmol/L (3.3-5.1) 11/24/23 Chloride 106 mmol/L (96-108) 11/24/23 Carbon Dioxide 26 mmol/L (22-29) 11/24/23 BUN 37 mg/dL (9-16) H 11/24/23 Creatinine 2.19 mg/dL (0.5-1.4) H 11/24/23 Calcium 9.0 mg/dL (8.4-10.2) 02/19/22 Urine Creatinine 30.57 mg/dL 11/24/23 Protein/Creatinin Ratio 2.32 (<0.2) H 11/24/23 Assessment & Plan Assessment & Plan (1) Chronic kidney disease, stage 3a: Code(s): N18.31 - Chronic kidney disease, stage 3a Category: Medical (2) FSGS (focal segmental glomerulosclerosis) with nephrosis: Code(s): N04.1 - Nephrotic syndrome with focal and segmental glomerular lesions Category: Medical (3) Hypertension: Code(s): I10 - Essential (primary) hypertension Category: Medical Qualifiers: Hypertension type: secondary to other renal disorders Qualified Code(s): I15.1 - Hypertension secondary to other renal disorders Plan Braden carries a diagnosis of biopsy-proven primary FSGS. He has taken immunosuppression in the past. He has history of prostate cancer needing surgery. His blood pressure is currently at goal. He had been on sparsentan which was changed to Irbesartan( as he is not in the FSGS study anymore) . His serum creatinine are stable. He is on Jardiance. I increased the dose of Jar diance to 25 mg daily. He has no retinopathy or neuropathy. He needs to lose more weight and keeps his blood sugar under better control. He avoids nonsteroidal anti-inflammatories and maintain good hydration. I reiterated the importance of blood sugar control, lifestyle modification, weight loss and importance of monitoring potassium, renal functions and urine protein. I answered all his questions. No other prescription refills done today. Follow-up labs ordered and F/U given. was present during this visit Orders: Orders Creatinine 3 Months I15.1 - Hypertension secondary to other renal disorders, N04.1 - Nephrotic syndrome with focal and segmental glomerular lesions, N18.31 - Chronic kidney disease, stage 3a Electrolytes 3 Months I15.1 - Hypertension secondary to other renal disorders, N04.1 - Nephrotic syndrome with focal and segmental glomerular lesions, N18.31 - Chronic kidney disease, stage 3a Blood Urea Nitrogen 3 Months I15.1 - Hypertension secondary to other renal disorders, N04.1 - Nephrotic syndrome with focal and segmental glomerular lesions, N18.31 - Chronic kidney disease, stage 3a Protein Creatinine Ratio, Ur 3 Months I15.1 - Hypertension secondary to other renal disorders, N04.1 - Nephrotic syndrome with focal and segmental glomerular lesions, N18.31 - Chronic kidney disease, stage 3a Medications: New empagliflozin (Jardiance) 25 mg PO DAILY 90 tabs 4RF Coding Level of Care Code Est Pt Level 4 (00323) Diagnoses Chronic kidney disease, stage 3a N18.31 FSGS (focal segmental glomerulosclerosis) with nephrosis N04.1 Hypertension secondary to other renal disorders I15.1 Hypertension type: secondary to other renal disorders
[2023-11-26 15:18] VITALS: BP 110/60; PULSE 68; O2SAT 97; BMI 36.5
== END 2023-11-26 16:02 | disposition home or self-care (01) ==
PROVIDERS: PCP Internal Medicine; Visit Provider Internal Medicine Nephrology
DX: N18.31 Chronic kidney disease, stage 3a (principal); N04.1 Nephrotic syndrome with focal and segmental glomerular lesions; I15.1 Hypertension secondary to other renal disorders
CPT/HCPCS: 99214

== ENCOUNTER → 2023-11-26 15:07 | Outpatient (BNVA) | payer OTHER, SELFPAY | PROVIDERS: PCP Internal Medicine; Visit Provider Internal Medicine Nephrology | DX: E11.22 Type 2 diabetes mellitus with diabetic chronic kidney disease (principal); I15.1 Hypertension secondary to other renal disorders; N18.31 Chronic kidney disease, stage 3a; R80.9 Proteinuria, unspecified; N04.1 Nephrotic syndrome with focal and segmental glomerular lesions | CPT/HCPCS: 99212 ==

== ENCOUNTER 2024-02-17 09:25 | Outpatient (REF) | payer OTHER, SELFPAY ==
--- OUTSIDE RECORDS SUMMARY | 2024-02-17 09:28 | XMS_ITS | Continuity of Care Document ---
Author Name [facility] Organization [facility] Care Team Providers Care Engine Manager Name Role Phone [facility] Unavailable Unavailable Problems Combined list of problems from Department of Defense and Veterans Affairs facilities. It does not include entries that were removed or entered in error. Problem Status Onset Date Problem Type Date of Resolution Comments Source History of excision of lamina of lumbar vertebra for decompression of spinal cord Active 2016 Condition Oct 11, 2016 Entered By: CESAR ROD Comment: L5-S1 decompression and right foramenectomy 10/08/16 Dr. Bobby Van [facility] Allergic rhinitis Active Condition Au g 2011 Entered By: CESAR ROD Comment: on allergy injections since 2010 [facility] Anemia (SCT 176537992) Active Condition [facility] Benign essential hypertension (SNOMED CT 5412844) Active Condition [facility] Chronic kidney disease stage 4 Active Condition [facility] Constipation [facility] Cramp in lower leg Active Condition [facility] Diabetes mellitus type 2 without retinopathy (SNOMED CT 4446005134650) Active Condition Nov 26 07 Entered By: KAYDEN CHESTER Comment: ANAM done 11/23/06 [facility] No DM retinopathy [facility] Erectile Dysfunction (SCT 902241538) Active Condition [facility] Focal glomerulonephritis (SNOMED CT 49209200) Active Condition Nov 13, 2006 Entered By: KAYDEN CHESTER Comment: focal segmental glomerulosclerosis Dr. Lenz [facility]2007 Entered By: KAYDEN CHESTER Comment: Proteinuria [facility] Hyperlipidemia (SNOMED CT 54834221) Active Condition [facility] Hypothyroid (SNOMED CT 95306253) Active Condition June 18, 2007 Entered By: KAYDEN CHESTER Comment: Dr. Morin [facility] Insomnia Active Condition [facility] ([facility]) Lumbar radiculopathy Active Condition [facility] [place] Malignant Neoplasm of the Prostate (ICD-9-CM 185.) Active Condition [facility] Nephrotic syndrome Active Condition [facility] 2016 Entered By: ZAY SOUZA Comment: Dr. Presley NephrologistMay 2016 Entered By: ZAY SOUZA Comment: [facility] 07/14/16 dehydration, AKIOct 2016 Entered By: ZAY SOUZA Comment: Dr. Presley office note 11/18/16 in [facility] dated 11/19/16.May 21, 2018 Entered By: RADHA DELVALLE Comment: On Both ACEI and ARB per Nephro as of 2018Ju2022 Entered By: Adriane OCONNELL Comment: 2021 on Jardiance and SPARSENTAN 400mg daily [facility] Obesity (SNOMED CT 213449823) Active Condition [facility] Obstructive sleep apnea syndrome Active Condition Aug 17, 2022 Entered By: Adriane OCONNELL Comment: 2022 sleep study moderate LYN, AHI 26- on CPAP [facility] [place] PROSTATE, MALIGN NEOPLASM Active Condition [facility] RHINITIS DUE TO POLLEN Active Condition [facility] Screening for Malignant Neoplasms of colon Active Condition Sep 23, 2011 Entered By: CESAR ROD Comment: 06/2011 repeat 10 yrsDec 2021 Entered By: Adriane OCONNELL Comment: 12/2021 one polyp. Repeat in 5 yearsDec 2021 Entered By: Adriane OCONNELL Comment: 01-15-22 [facility] [place] Alfredo Giordano MD Sessile serrated lesion return 5 years [facility] Diagnosis: ICD-10-CM Z46.0 Encounter for fit/adjst of spectacles and contact lenses Active Diagnosis [facility] Diagnosis: ICD-10-CM E11.9 Type 2 diabetes mellitus without complications Active Diagnosis [facility] Diagnosis: ICD-10-CM G47.30 Sleep apnea, unspecified Active Diagnosis [facility] Diagnosis: ICD-10-CM L72.3 Sebaceous cyst Active Diagnosis [facility] Diagnosis: ICD-10-CM Z23 Encounter for immunization Active Diagnosis [facility] Diagnosis: ICD-10-CM L82.1 Other seborrheic keratosis Active Diagnosis [facility] Diagnosis: ICD-10-CM Z13.89 Encounter for screening for other disorder Active Diagnosis [facility] Diagnosis: ICD-10-CM D48.5 Neoplasm of uncertain behavior of skin Active Diagnosis [facility] Diagnosis: ICD-10-CM G47.09 Other insomnia Active Diagnosis [facility] Diagnosis: ICD-10-CM J06.9 Acute upper respiratory infection, unspecified Active Diagnosis [facility] Diagnosis: ICD-10-CM R05.9 Cough, unspecified Active Diagnosis [facility] Medications Combined list of outpatient medications from Department of Defense and Veterans Affairs facilities.Medications provided include 1) outpatient medications from the last 15 months, and 2) patient-reported medications. Medication Details Route Status Patient Instructions Prescription Expires Prescription Number Last Dispense Date Ordering Provider Order Date Order Qty Source ACETAMINOPH EN 325MG TAB TAKE ONE TABLET BY MOUTH PRN ORAL ACTIVE LUCINA WILSON 2018 [facility] AMLODIPINE BESYLATE 5MG TAB TAKE ONE TABLET BY MOUTH ONCE DAILY FOR BLOOD PRESSURE /HEART, DO NOT TAKE WITH GRAPEFRU IT JUICE ORAL ACTIVE 05/27/2024 [id number] LEV THURMAN 2023 90 [place] AMLODIPINE BESYLATE 5MG TAB TAKE ONE TABLET BY MOUTH ONCE DAILY FOR BLOOD PRESSURE /HEART, DO NOT TAKE WITH GRAPEFRU IT JUICE ORAL DISCONT INUED 05/25/2023 [id number] LEV THURMAN 2022 90 [place] AMOXICILLIN TRIHYDRATE 500MG CAP TAKE ONE CAPSULE BY MOUTH TWICE DAILY FOR INFECTIO N CAUSED BY BACTERIA ORAL 06/29/2023 [id number] Frederic EDGE 2023 20 [place] ASPIRIN 81MG TAB,EC TAKE ONE TABLET BY MOUTH ONCE DAILY ORAL ACTIVE LUCINA WILSON 2018 [facility] ATORVASTATI N CA 80MG TAB TAKE ONE-HALF TABLET BY MOUTH ONCE DAILY FOR CHOLESTE ROL ORAL ACTIVE 08/18/2024 [id number] 4 LEV THURMAN 2023 45 [place] ATORVASTATI N CA 80MG TAB TAKE ONE-HALF TABLET BY MOUTH ONCE DAILY FOR CHOLESTE ROL ORAL DISCONT INUED 11/19/2023 [id number] 4 LEV THURMAN 2022 45 [place] BACLOFEN 10MG TAB TAKE ONE TABLET BY MOUTH THREE TIMES A DAY FOR MUSCLE RIGIDITY (REPLACE S CYCLOBEN ZAPRINE) ORAL ACTIVE 01/30/2025 [id number] LEV THURMAN 2023 270 [place] BACLOFEN 10MG TAB TAKE ONE TABLET BY MOUTH THREE TIMES A DAY FOR MUSCLE RIGIDITY (REPLACE S CYCLOBEN ZAPRINE) ORAL DISCONT INUED 02/19/2024 [id number] 4 VIJAYA DELVALLE 2023 270 [place] BACLOFEN 10MG TAB TAKE ONE TABLET BY MOUTH THREE TIMES A DAY FOR MUSCLE RIGIDITY (REPLACE S CYCLOBEN ZAPRINE) ORAL DISCONT INUED 02/21/2023 [id number] MATTHEW ESQUIVEL 2022 270 [facility] CARBOXYMETH YLCELLULOSE NA 0.5% SOLN,OPH INSTILL 1 DROP INTO EACH EYE FOUR TIMES A DAY FOR DRY EYE OPHTHA LMIC ACTIVE 01/13/2025 [id number] WENDY,JASVIR EY J 2023 45 [facility] CARBOXYMETH YLCELLULOSE NA 0.5% SOLN,OPH INSTILL 1 DROP INTO EACH EYE FOUR TIMES A DAY FOR DRY EYE OPHTHA LMIC DISCONT INUED 01/08/2024 [id number] WENDY,JASVIR EY J 2022 45 [facility] CHOLECALCIF FADI 25MCG (1,000UNIT) TAB TAKE ONE TABLET BY MOUTH ONCE DAILY FOR VITAMIN SUPPLEME NTATION ORAL ACTIVE 01/30/2025 [id number] 5 OMIDPIPORamila JUAN GUNDERSONJonathanHILARYVIOLET Tulio 2024 100 [place] CHOLECALCIF FADI 25MCG (1,000UNIT) TAB TAKE ONE TABLET BY MOUTH ONCE DAILY FOR VITAMIN SUPPLEME NTATION ORAL DISCONT INUED 03/06/2024 [id number] 4 OMIDANALIA PRECIADOCHANJUAN RIZVIJonathanHILARYVIOLET Tulio 2023 100 [place] CLONAZEPAM 0.5MG TAB TAKE ONE TABLET BY MOUTH THREE TIMES DAILY NEEDED FOR PANIC DISORDER ORAL ACTIVE 07/04/2024 [id number] Mica WALLACE 2023 90 [place] CLONAZEPAM 0.5MG TAB TAKE ONE TABLET BY MOUTH THREE TIMES A DAY ORAL DISCONT INUED 01/03/2024 [id number] 4 DAVID ILANAELAYNE BARAKATHILARYVIOLET Antunez 2023 90 [place] CLONAZEPAM 0.5MG TAB TAKE ONE TABLET BY MOUTH THREE TIMES A DAY ORAL DISCONT INUED 06/27/2023 [id number] MATTHEW ESQUIVEL Y 2022 90 [facility] CLONAZEPAM 0.5MG TAB TAKE ONE TABLET BY MOUTH THREE TIMES A DAY ORAL DISCONT INUED 05/02/2023 [id number] MATTHEW ESQUIVEL Y 2022 90 [facility] DEXTROMETHO RPHAN HBR 10MG/GUAIFE NESIN 100MG/5ML (AF & SF) LIQUID TAKE 10 MLS BY MOUTH EVERY 6 HOURS NEEDED FOR COUGH ORAL 06/29/2023 [id number] Frederic EDGE 2023 120 [place] EMPAGLIFLOZ IN 10MG TAB TAKE ONE TABLET BY MOUTH ONCE DAILY FOR DIABETES ORAL HOLD 08/11/2024 [id number] 4 Puma COLEMAN 2023 90 [place] EMPAGLIFLOZ IN 10MG TAB TAKE ONE TABLET BY MOUTH ONCE DAILY FOR DIABETES ORAL DISCONT INUED 05/21/2024 [id number] LEV THURMAN 2023 90 [facility] IELD EMPAGLIFLOZ IN 10MG TAB TAKE ONE TABLET BY MOUTH ONCE DAILY FOR DIABETES ORAL DISCONT INUED 12/25/2023 [id number] LEV THURMAN 2022 90 [facility] IELD EMPAGLIFLOZ IN 25MG TAB TAKE ONE TABLET BY MOUTH ONCE DAILY ORAL ACTIVE 11/26/2024 [id number] JOSE BAH 2023 90 [facility] IELD FISH OIL 1000MG (500MG DHA/EPA) CAP,ORAL TAKE 1 CAPSULE BY MOUTH TWICE DAILY ORAL ACTIVE LEV THURMAN 2021 [place] FLUTICASONE PROPIONATE 50MCG/SPRAY SOLN,NASAL, 16GM INSTILL 1 SPRAY INTO EACH NOSTRIL ONCE DAILY FOR NASAL IRRITATI ON/INFLA MMATION NASAL ACTIVE 01/30/2025 [id number] LEV THURMAN 2023 1 [place] IRBESARTAN 300MG TAB TAKE ONE TABLET BY MOUTH ONCE DAILY FOR HIGH BLOOD PRESSURE ORAL ACTIVE 09/04/2024 [id number] LEV THURMAN 2023 90 [facility] IELD IRBESARTAN 300MG TAB TAKE ONE TABLET BY MOUTH ONCE DAILY FOR HIGH BLOOD PRESSURE ORAL DISCONT INUED 05/05/2024 [id number] LEV THURMAN 2023 90 [facility] IELD LEVOTHYROXI NE NA 100MCG TAB (SYNTHROID) TAKE TWO TABLETS BY MOUTH SUN, MON, TUE, MALCOM, FRI, and SAT AND TAKE ONE TABLET ON Y FOR THYROID - TAKE ON AN EMPTY STOMACH WITH A FULL GLASS OF WATER ORAL ACTIVE 10/06/2024 [id number] 4 Mica WALLACE 2023 180 [place] LEVOTHYROXI NE NA 100MCG TAB (SYNTHROID) TAKE TWO TABLETS BY MOUTH SUN, MON, TUE, MALCOM, FRI, and SAT AND TAKE ONE TABLET ON Y FOR THYROID - TAKE ON AN EMPTY STOMACH WITH A FULL GLASS OF WATER ORAL DISCONT INUED 02/19/2024 [id number] VIJAYA DELVALLE 2023 180 [place] LEVOTHYROXI NE NA 100MCG TAB (SYNTHROID) TAKE TWO TABLETS BY MOUTH SUN, MON, TUE, MALCOM, FRI, and SAT AND TAKE ONE TABLET ON Y FOR THYROID - TAKE ON AN EMPTY STOMACH WITH A FULL GLASS OF WATER ORAL DISCONT INUED 08/13/2023 [id number] 3 LEV THURMAN 2022 180 [place] MAGNESIUM OXIDE 250MG TAB TAKE TWO TABLETS BY MOUTH ONCE DAILY ORAL ACTIVE Puma COLEMAN A 2022 [place] MINERAL OIL,LIGHT/P ETROLATUM (PF) OINT,OPH APPLY THIN RIBBON INTO EACH EYE AT BEDTIME FOR DRY EYE OPHTHA LMIC 01/08/2024 [id number] JASVIR NGUYEN EY J 2022 3 [facility] SEMAGLUTIDE 0.25MG/0.37 5ML INJ,SOLN,PE N,3ML INJECT 0.5MG SUBCUTAN EOUSLY ONCE A WEEK SUBCUT ANEOUS DISCONT INUED 03/06/2024 [id number] 4 LEV THURMAN 2023 1 [place] SEMAGLUTIDE 0.25MG/0.37 5ML INJ,SOLN,PE N,3ML INJECT 0.5MG SUBCUTAN EOUSLY ONCE A WEEK SUBCUT ANEOUS DISCONT INUED (EDIT) 07/31/2023 [id number] JADEN ESCOBAR 2023 1 [place] SEMAGLUTIDE 0.25MG/0.37 5ML INJ,SOLN,PE N,3ML INJECT 0.5MG SUBCUTAN EOUSLY ONCE A WEEK SUBCUT ANEOUS DISCONT INUED 10/19/2023 [id number] Puma COLEMAN 2022 2 [place] SEMAGLUTIDE 1MG/0.75ML INJ,SOLN,PE N,3ML INJECT 1MG SUBCUTAN EOUSLY ONCE A WEEK FOR TYPE 2 DIABETES MELLITUS SUBCUT ANEOUS DISCONT INUED BY PROVIDE R 07/02/2024 [id number] LEV THURMAN 2023 1 [place] SEMAGLUTIDE 1MG/0.75ML INJ,SOLN,PE N,3ML INJECT 1MG SUBCUTAN EOUSLY ONCE A WEEK SUBCUT ANEOUS DISCONT INUED (EDIT) 07/31/2023 [id number] JADEN ESCOBAR 2023 1 [place] SEMAGLUTIDE 2MG/0.75ML INJ,SOLN,PE N,3ML INJECT 2MG SUBCUTAN EOUSLY ONCE A WEEK FOR TYPE 2 DIABETES MELLITUS SUBCUT ANEOUS ACTIVE 01/12/2025 [id number] LEV THURMAN 2023 2 [facility] Allergies, Adverse Reactions, Alerts Combined list of allergies from Department of Defense and Veterans Affairs facilities. It does not include entries that were removed or entered in error. Substance Category Reaction Severity Reaction type Status Date Reported Comments Source KETOROLAC TROMETHAMINE Propensity to adverse reactions to drug (finding) active 7 [facility] LOVASTATIN Propensity to adverse reactions to drug (finding) active 2 [facility] [place] [facility] NONSTEROIDAL ANTI-INFLAMM ATORY Propensity to adverse reactions to drug (finding) Renal impairment active 8 [facility] [place] [facility] NONSTEROIDAL ANTI-INFLAMM ATORY Propensity to adverse reactions to drug (finding) active 3 [facility] SPIRONOLACTO NE Propensity to adverse reactions to drug (finding) Swelling active 9 [facility] Immunizations Combined list of available immunizations from the Department of Defense and Veterans Affairs facilities. Immunization Series Date Given Administered By Site Reaction Lot Number CVX Code Drug Milk Pasteurizer Status Comments Source INFLUENZA, SPLIT VIRUS, TRIVALENT, PF 2023 SANJIV AMADO LEFT DELTO ID [id number] 140 complet ed [facility] INFLUENZA, INJECTABLE, QUADRIVALENT, PRESERVATIVE FREE 2022 MAXIMINO,TAI Guevara RIGHT DELTO ID [id number] 150 complet ed [place] ZOSTER RECOMBINANT 2 2022 ANGE LEWIS DEBORA LEFT ARM [id number] 187 complet ed [id number] 01/10/23 [place] COVID-19 (MODERNA), MRNA, LNP-S, BIVALENT BOOSTER, PF, 50 MCG/0.5 ML OR 25MCG/0.25 ML DOSE 1 2021 JOSE MCNALLY LEFT DELTO ID [id number] 229 complet ed [place] ZOSTER RECOMBINANT 1 2021 187 complet ed [facility] INFLUENZA, UNSPECIFIED FORMULATION 2021 88 complet ed [facility] COVID-19 (PFIZER), MRNA, LNP-S, PF, 30 MCG/0.3 ML DOSE 2 2020 208 complet ed [facility] COVID-19 (PFIZER), MRNA, LNP-S, PF, 30 MCG/0.3 ML DOSE 1 2020 208 complet ed [facility] INFLUENZA, UNSPECIFIED FORMULATION 2020 88 complet ed [facility] TDAP 2020 115 complet ed [place] INFLUENZA, INJECTABLE, QUADRIVALENT, PRESERVATIVE FREE 2019 150 complet ed [place] INFLUENZA, INJECTABLE, MDCK, PRESERVATIVE FREE, QUADRIVALENT 2018 171 complet ed [facility] Administe red by: RADHA MONROE (FME=[phone]). Partner 2 Lot#: [id number] Mfr: SEQIRUS; Dosage: 0.5 [facility] INFLUENZA, SEASONAL, INJECTABLE 2018 141 complet ed [facility] INFLUENZA, SEASONAL, INJECTABLE 2017 141 complet ed Site: Left Deltoid [place] PNEUMOCOCCAL POLYSACCHARID E [id number] 2016 33 complet ed [place] INFLUENZA, SEASONAL, INJECTABLE 2016 141 complet ed Site: Left Deltoid [place] FLU,3 YRS (HISTORICAL) 2015 88 complet ed Site: Left Deltoid [place] FLU,3 YRS (HISTORICAL) 2014 88 complet ed Site: Left Deltoid [place] HEP B, ADULT 3 2014 43 complet ed [facility] ZOSTER (HISTORICAL) 2013 121 complet ed [place] HEPATITIS B VACCINE (HISTORICAL) 2013 43 complet ed 1month [facility] [place] [facility] FLU,3 YRS (HISTORICAL) 2013 88 complet ed Site: Right Deltoid [place] HEPATITIS B VACCINE (HISTORICAL) 2013 43 complet ed BMP [facility] [place] PNEUMOCOCCAL CONJUGATE PCV 13 2013 133 complet ed [place] FLU,3 YRS (HISTORICAL) 2012 88 complet ed Site: Left Deltoid [place] FLU,3 YRS (HISTORICAL) 2011 88 complet ed Site: Left Deltoid [place] FLU,3 YRS (HISTORICAL) 2010 88 complet ed Site: Left Deltoid [place] DTAP, UNSPECIFIED FORMULATION 2010 107 complet ed Site: Left Deltoid [place] FLU,3 YRS (HISTORICAL) 2009 88 complet ed Site: Left Deltoid [place] NOVEL INFLUENZA-H1N 1-09, ALL FORMULATIONS 2009 128 complet ed [employer] [place] FLU,3 YRS (HISTORICAL) 2008 88 complet ed Pt. got his vaccine with his civilian provider! ! [facility] FLU,3 YRS (HISTORICAL) 2007 88 complet ed Site: Left Deltoid [place] FLU,3 YRS (HISTORICAL) 2007 88 complet ed [facility] FLU,3 YRS (HISTORICAL) 2006 88 complet ed [facility] FLU,3 YRS (HISTORICAL) 2006 88 complet ed Site: Left Deltoid [place] PNEUMOCOCCAL, UNSPECIFIED FORMULATION 2006 109 complet ed [facility] FLU,3 YRS (HISTORICAL) 2005 88 complet ed [place] FLU,3 YRS (HISTORICAL) 2004 KARI JAUREGUI L 88 complet ed [place] FLU,3 YRS (HISTORICAL) 2003 PATRIC YOUNG 88 complet ed [place] FLU,3 YRS (HISTORICAL) 2001 SARAH GARCIA 88 complet ed [place] Results Combined list of recent chemistry, hematology and other laboratory results from Department of Defense and Veterans Affairs, ranging from 15 months to all on record, depending upon the facility. Order Name Results Value Reference Range Date Interpretation Specimen Comments Source PROTEIN/C REATININE RATIO PANEL, URINE CREATININE [MASS/VOLUM E] IN URINE 64.72 mg/dL 08/28 Specimen Type: URINE No comment entered. Ordering Provider: ANYI PALMER Report Released Date/Time: Aug 29, 2023 09:24 AM Reporting Lab: [facility] [place] [facility] [address] [facility] [address] Performing Lab: [facility] [place] [facility] [address] [facility] [address] [place] PROTEIN/C REATININE RATIO PANEL, URINE PROTEIN/CRE ATININE [MASS RATIO] IN URINE 1.6 <0.2 - 0.2 08/28 Specimen Type: URINE No comment entered. Ordering Provider: ANYI PALMER Report Released Date/Time: Aug 29, 2023 09:24 AM Reporting Lab: [facility] [place] [facility] [address] [facility] [address] Performing Lab: [facility] [place] [facility] [address] [facility] [address] [place] PROTEIN/C REATININE RATIO PANEL, URINE PROTEIN [MASS/VOLUM E] IN URINE 102.7 mg/dL 0.0 - 20.0 08/28 H Specimen Type: URINE No comment entered. Ordering Provider: ANYI PALMER Report Released Date/Time: Aug 29, 2023 09:24 AM Reporting Lab: [facility] [address] [address] Performing Lab: [facility] [address] [address] [place] ELECTROLY TE PANEL SODIUM [MOLES/VOLU ME] IN SERUM OR PLASMA 141 mmol/L 135 - 145 08/28 Specimen Type: SERUM No comment entered. Ordering Provider: ANYI PALMER Report Released Date/Time: Aug 29, 2023 09:24 AM Reporting Lab: [address] [address] Performing Lab: [facility] [address] [address] [place] ELECTROLY TE PANEL POTASSIUM [MOLES/VOLU ME] IN SERUM OR PLASMA 4.9 mmol/L 3.5 - 5.0 08/28 Specimen Type: SERUM No comment entered. Ordering Provider: ANYI PALMER Report Released Date/Time: Aug 29, 2023 09:24 AM Reporting Lab: [facility] [address] [address] Performing Lab: [facility] [address] [address] [place] ELECTROLY TE PANEL CHLORIDE [MOLES/VOLU ME] IN SERUM OR PLASMA 109 mmol/L 100 - 110 08/28 Specimen Type: SERUM No comment entered. Ordering Provider: ANYI PALMER Report Released Date/Time: Aug 29, 2023 09:24 AM Reporting Lab: [address] [address] Performing Lab: [facility] [address] [facility] [address] [place] ELECTROLY TE PANEL CARBON DIOXIDE, TOTAL [MOLES/VOLU ME] IN SERUM OR PLASMA 23 meq/L 20 - 30 08/28 Specimen Type: SERUM No comment entered. Ordering Provider: ANYI PALMER Report Released Date/Time: Aug 29, 2023 09:24 AM Reporting Lab: [facility] [address] [facility] [address] Performing Lab: [facility] [address] [facility] [address] [place] THYROID T4 FREE(FT4) (WROX) THYROXINE (T4) FREE [MASS/VOLUM E] IN SERUM OR PLASMA 1.31 ng/dL 0.6 - 1.6 08/28 Specimen Type: SERUM No comment entered. Ordering Provider: ANYI PALMER Report Released Date/Time: Mar 06, 2023 09:49 AM Reporting Lab: [facility] [address] [facility] [address] Performing Lab: [facility] [address] [facility] [address] [place] VITAMIN D (25-OH) 25-HYDROXYV ITAMIN D3 [MASS/VOLUM E] IN SERUM OR PLASMA 32 ng/mL 20 - 50 08/28 Specimen Type: SERUM No comment entered. Ordering Provider: ANYI PALMER Report Released Date/Time: Mar 06, 2023 09:49 AM Reporting Lab: [facility] [address] [facility] [address] Performing Lab: [facility] [address] [facility] [address] [place] VITAMIN B12 COBALAMIN (VITAMIN B12) [MASS/VOLUM E] IN SERUM OR PLASMA 407 pg/mL 200 - 900 08/28 Specimen Type: SERUM No comment entered. Ordering Provider: ANYI PALMER Report Released Date/Time: Mar 06, 2023 09:49 AM Reporting Lab: [address] [address] Performing Lab: [address] [address] [place] PSA PROSTATE SPECIFIC AG [MASS/VOLUM E] IN SERUM OR PLASMA < 0.10ng /mL 0.00 - 4.00 08/28 Specimen Type: SERUM No comment entered. Ordering Provider: ANYI PALMER Report Released Date/Time: Mar 06, 2023 09:35 AM Reporting Lab: [address] [address] Performing Lab: [address] [address] [place] HEMOGLOBI N A1C PANEL HEMOGLOBIN A1C/HEMOGLO BIN.TOTAL IN BLOOD BY HPLC 7.1 4.0 - 5.6 08/28 H Specimen Type: BLOOD Comment: Values obtained from A1C measurement s can vary. For atypical A1C assays, a reported value of 7.0 could actually be between 6.72 and 7.28 if measured by a reference method. A reported value of 9.0 could actually be between 8.73 and 9.27. Ref: http://www. ngsp.org/[place] Pdata.asp Ordering Provider: ANYI PALMER Report Released Date/Time: Mar 06, 2023 09:49 AM Reporting Lab: [address] [address] Performing Lab: [address] [address] [place] MICROALBU MIN CREATININ E RATIO PANEL MICROALBUMI N/CREATININ E [MASS RATIO] IN URINE 1278.8 mg/g 0 - 29.9 08/28 H Specimen Type: URINE No comment entered. Ordering Provider: ANYI PALMER Report Released Date/Time: Mar 06, 2023 09:49 AM Reporting Lab: [facility] [address] [facility] [address] Performing Lab: [facility] [facility] [address] [facility] [address] [place] MICROALBU MIN CREATININ E RATIO PANEL MICROALBUMI N [MASS/VOLUM E] IN URINE 82.2 mg/dL 08/28 Specimen Type: URINE No comment entered. Ordering Provider: ANYI PALMER Report Released Date/Time: Mar 06, 2023 09:49 AM Reporting Lab: [facility] [place] [facility] [address] [facility] [address] Performing Lab: [facility] [address] [address] [place] MICROALBU MIN CREATININ E RATIO PANEL CREATININE [MASS/VOLUM E] IN URINE 64.28 mg/dL 08/28 Specimen Type: URINE No comment entered. Ordering Provider: ANYI PALMER Report Released Date/Time: Mar 06, 2023 09:49 AM Reporting Lab: [facility] [address] [address] Performing Lab: [facility] [address] [address] [place] TSH THYROTROPIN [UNITS/VOLU ME] IN SERUM OR PLASMA 1.25 u[IU]/ mL 0.35 - 5.00 08/28 Specimen Type: SERUM No comment entered. Ordering Provider: ANYI PALMER Report Released Date/Time: Mar 06, 2023 09:49 AM Reporting Lab: [facility] [address] [address] Performing Lab: [facility] [address] [address] [place] LIVER FUNCTION PROTEIN [MASS/VOLUM E] IN SERUM OR PLASMA 6.3 g/dL 6.0 - 8.3 08/28 Specimen Type: SERUM No comment entered. Ordering Provider: ANYI PALMER Report Released Date/Time: Mar 06, 2023 09:49 AM Reporting Lab: [facility]TRN [facility] [address] [facility] [phone] Performing Lab: [facility]ITALRCROSSBRID[facility]N [facility]ENTERUSEMONTEFIORE [facility] [address] [facility] [address] [place] LIVER FUNCTION ALBUMIN [MASS/VOLUM E] IN SERUM OR PLASMA 3.7 g/dL 3.5 - 5.0 08/28 Specimen Type: SERUM No comment entered. Ordering Provider: ANYI PALMER Report Released Date/Time: Mar 06, 2023 09:49 AM Reporting Lab: [facility] [address] [address] Performing Lab: [facility] [address] [address] [place] L[place] FUN[place] ALKALINE PHOSPHATASE [ENZYMATIC ACTIVITY/VO LUME] IN SERUM OR PLASMA 49 U/L 40 - 150 08/28 Specimen Type: SERUM No comment entered. Ordering Provider: ANYI PALMER Report Released Date/Time: Mar 06, 2023 09:49 AM Reporting Lab: [facility]N [address] [address] Performing Lab: [facility] TRN [facility] [address] [place] FUN[place] ASPARTATE AMINOTRANSF ERASE [ENZYMATIC ACTIVITY/VO LUME] IN SERUM OR PLASMA 13 U/L 5 - 34 08/28 Specimen Type: SERUM No comment entered. Ordering Provider: ANYI PALMER Report Released Date/Time: Mar 06, 2023 09:49 AM Reporting Lab: [facility]TRN [facility]USE[address] [address] Performing Lab: [facility]RL [facility]GASN [facility]ENTERUSE[address] [address] [place] LIVER FUNCTION ALANINE AMINOTRANSF ERASE [ENZYMATIC ACTIVITY/VO LUME] IN SERUM OR PLASMA 32 U/L 08/28 Specimen Type: SERUM No comment entered. Ordering Provider: ANYI PALMER Report Released Date/Time: Mar 06, 2023 09:49 AM Reporting Lab: [facility] [address] [facility] [address] Performing Lab: [facility] [address] [facility] [address] [facility] BILIRUBIN.T OTAL [MASS/VOLUM E] IN SERUM OR PLASMA 0.3 mg/dL 0.2 - 1.2 08/28 Specimen Type: SERUM No comment entered. Ordering Provider: ANYI PALMER Report Released Date/Time: Mar 06, 2023 09:49 AM Reporting Lab: [facility] [address] [facility] [address] Performing Lab: [facility] [address] [facility] [address] [facility] Vital Signs Combined list of inpatient and outpatient Vital Signs from Department of Defense and Veterans Affairs, ranging from 12 months to all on record, depending upon the facility. Vital Sign Value Date Comments Source SYSTOLIC BLOOD PRESSURE 120 09/04/19 24 13:35:58 [facility] DIASTOLIC BLOOD PRESSURE 74 024 13:35:58 [facility] PULSE OXIMETRY 98 09/04/2023 13:35:58 [facility] WEIGHT 231.2 09/04/2023 13:35:58 [facility] BMI 36kg/m2 09/04/2023 13:35:58 [facility] TEMPERATURE 96.4 09/04/2023 13:35:58 [facility] PULSE 64 09/04/2023 13:35:58 [facility] WEIGHT 232.2 06/24/2023 15:10:18 [facility] BMI 36kg/m2 06/24/2023 15:10:18 [facility] SYSTOLIC BLOOD PRESSURE 118 05/30/19 24 08:33:01 [facility] DIASTOLIC BLOOD PRESSURE 68 024 08:33:01 [facility] PULSE OXIMETRY 96 05/30/2023 08:33:01 [facility] PAIN 0 05/30/2023 08:33:01 [facility] TEMPERATURE 97.3 05/30/2023 08:33:01 [facility] PULSE 75 05/30/2023 08:33:01 [facility] RESPIRATION 18 05/30/2023 08:33:01 [facility] SYSTOLIC BLOOD PRESSURE 132 03/06/19 24 09:03:34 [facility] DIASTOLIC BLOOD PRESSURE 75 024 09:03:34 [facility] PULSE OXIMETRY 97% 03/06/2023 09:03:34 [facility] WEIGHT 237 03/06/2023 09:03:34 [facility] BMI 37kg/m2 03/06/2023 09:03:34 [facility] TEMPERATURE 96.9 03/06/2023 09:03:34 [facility] PULSE 66 03/06/2023 09:03:34 [facility] Encounters Combined list of: 1) Encounters from 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 2) Encounters from the Department of Defense facilities going back up to 280 months. Location Location Details Encounter Type Encounter Number Reason For Visit Attending Provider ADM Date DC Date Status Disposition Source [facility] Out[facility] Encounter [id number] 08/16 [facility] Out[facility] Encounter [id number] 08/16 [facility] [place] MTMS BY PHARM ADDL 15 MIN [id number] Diagnos is: ICD-10- CM E11.9 Type 2 diabete s mellitu s without complic ations< br/> ALYSSA COLEMAN A 08/16 [place] [facility] QNHP OL DIG ASSMT&MGMT 5-10 [id number] Diagnos is: ICD-10- CM E11.9 Type 2 diabete s mellitu s without complic ations< br/> SAMUEL RAMOS A 08/21 [facility] Outpatient Encounter [id number] 08/27 [facility] En[facility] [id number] 08/27 [facility] [place] Outpatient Encounter [id number] 08/28 [place] MTMS BY PHARM ADDL 15 MIN [id number] Diagnos is: ICD-10- CM E11.9 Type 2 diabete s mellitu s without complic ations< br/> ALYSSA COLEMAN ELVIRA A 10/18 [place] [facility] Encounter [id number] EARLE ESQUIVEL IEL Y 10/30 [facility] En[facility] [id number] 11/06 [facility] [id number] 11/07 [facility] Encounter [id number] 11/15 [facility] En[facility] [id number] 11/18 [facility]counter [id number] 11/29 [facility] Encounter [id number] 11/29 [facility] [place] MTMS BY PHARM ADDL 15 MIN [id number] Diagnos is: ICD-10- CM E11.9 Type 2 diabete s mellitu s without complic ations< br/> ALYSSA COLEMAN A 11/29 [place] [facility] Outpatient Encounter [id number] 12/03 [facility] [place] OFF/OP EST JUNE X REQ PHY/QHP [id number] Diagnos is: ICD-10- CM Z23 Encount er for immuniz ation<b r/> JETT STANTON 12/04 [place] [facility] Outpatient Encounter [id number] 12/24 [facility] En[facility] [id number] 12/24 [facility] EYE EXAM&TX ESTAB PT 1/>VST [id number] Diagnos is: ICD-10- CM E11.9 Type 2 diabete s mellitu s without complic ations< br/> NGUYEN,LACE Y J 01/07 [facility] FIT SPECTACLES MULTIFOCAL [id number] Diagnos is: ICD-10- CM Z46.0 Encount er for fit/adj st of spectac les and contact lenses< br/> NGUYEN,LACE Y J 01/07 [facility] REPAIR & ADJUST SPECTACLES [id number] Diagnos is: ICD-10- CM Z46.0 Encount er for fit/adj st of spectac les and contact lenses< br/> CARISSA BLAND 01/31 [facility] Out[facility] Encounter [id number] 02/03 [facility] Out[facility] Encounter [id number] 02/18 [facility] Out[facility] Encounter [id number] 02/18 [facility] Encounter [id number] 02/18 [facility] Out[facility] Encounter [id number] 02/18 [facility] Out[facility] Encounter [id number] 02/18 [facility] Encounter [id number] 02/18 [facility] COLLJ & INTERPJ DATA EA 30 D [id number] Diagnos is: ICD-10- CM G47.30 Sleep apnea, unspeci fied
KEYON MCNALLY 02/19 [facility] En[facility] [id number] JUAN EVANS 02/24 [facility] Out[facility] Encounter [id number] 02/27 [facility] Out[facility] Encounter [id number] 03/06 [facility] OFFICE O/P EST HI 40 MIN [id number] Diagnos is: ICD-10- CM G47.30 Sleep apnea, unspeci fied
JUAN EVANS 03/06 [place] [facility] Outpatient Encounter [id number] 03/07 [facility] OFF/OP EST JUNE X REQ PHY/QHP [id number] Diagnos is: ICD-10- CM G47.09 Other insomni a
MANOLO,W ZOE 03/11 [place] [facility] Outpatient Encounter [id number] 03/13 [facility] CASE MANAGEMENT [id number] Diagnos is: ICD-10- CM G47.09 Other insomni a
MANOLO,W ZOE 03/19 [place] [facility] Out[facility] Encounter [id number] JUAN EVANS M 03/20 [facility] Out[facility] Encounter [id number] 03/25 [facility] Out[facility] Encounter [id number] 03/31 [facility] Out[facility] Encounter [id number] 04/17 [facility] Out[facility] Encounter [id number] 04/17 [facility] Out[facility] Encounter [id number] 04/21 [facility] Out[facility] Encounter [id number] 05/11 [facility] Out[facility]counter [id number] 05/18 [facility] Out[facility] Encounter [id number] Gaby ROSSI 05/19 [facility] Out[facility] Encounter [id number] 05/26 [facility] Out[facility] Encounter [id number] 05/26 [facility] Out[facility] Encounter [id number] MCKENZIE MCCOY 05/28 [facility] Out[facility] Encounter [id number] 05/28 [facility] Out[facility] Encounter [id number] 05/29 [facility] [place] OFF/OP EST MAY X REQ PHY/QHP [id number] Diagnos is: ICD-10- CM R05.9 Cough, unspeci fied
JOSE,ER IC K 05/29 [place] [facility] Out[facility] Encounter [id number] ZACARIAS EDGEA C 05/29 [facility] OFFICE O/P EST LOW 20 MIN [id number] Diagnos is: ICD-10- CM J06.9 Acute upper respira tory infecti on, unspeci fied
ZACARIAS EDGEA C 05/29 [place] [facility] Out[facility] Encounter [id number] 06/03 [facility] Out[facility] Encounter [id number] 06/15 [facility] Out[facility] Encounter [id number] 06/18 [facility] Out[facility] Encounter [id number] 06/25 [facility] Out[facility] Encounter [id number] 06/29 [facility] Out[facility] Encounter [id number] 06/30 [facility] Out[facility] Encounter [id number] 06/30 [facility] Out[facility] Encounter [id number] 07/09 [facility] Out[facility] Encounter [id number] 07/10 [facility] Out[facility] Encounter [id number] 07/17 [facility] MTMS BY PHARM ADDL 15 MIN [id number] Diagnos is: ICD-10- CM E11.9 Type 2 diabete s mellitu s without complic ations< br/> ALYSSA COLEMAN 08/07 [place] [facility] Out[facility] Encounter [id number] 08/12 [facility] Out[facility] Encounter [id number] MITCH VANCE 08/17 [facility] Out[facility] Encounter [id number] 08/17 [facility] QNHP OL DIG ASSMT&MGMT 5-10 [id number] Diagnos is: ICD-10- CM G47.09 Other insomni a
TIFFANY CHUNG 08/17 [facility] En[facility] [id number] 09/02 [facility] Out[facility] Encounter [id number] 09/02 [facility] Out[facility] Encounter [id number] 09/03 [facility] OFFICE O/P EST MOD 30 MIN [id number] Diagnos is: ICD-10- CM D48.5 Neoplas m of uncerta in behavio r of skin
NADAZDINRamilaB NELLY,OG NJENKA M 09/03 [place] [facility] Out[facility] Encounter [id number] 09/28 [facility] UNLISTED SPEC DERM SVC/PX [id number] Diagnos is: ICD-10- CM Z13.89 Encount er for screeni ng for other disorde r
SHOYEYO,O ENRIQUETAOWALE 09/28 [place] [facility] Out[facility] Encounter [id number] 1.09/29 [facility] Outpatient Encounter [id number] Diagnos is: ICD-10- CM L82.1 Other seborrh eic keratos is
HALEY GRAJEDA PH J 09/29 [facility] En[facility] [id number] 09/29 [facility] Out[facility] Encounter [id number] 09/30 [facility] Out[facility] Encounter [id number]/14 [facility] IMMUNIZATI ON ADMIN [id number] Diagnos is: ICD-10- CM Z23 Encount er for immuniz ation<b r/> SUBHA LI 10/30 [facility] Out[facility] Encounter [id number] 11/04 [facility] Out[facility] Encounter [id number] 11/10 [facility] Outpatient Encounter [id number] 11/18 [facility] Out[facility] Encounter [id number] 11/19 [facility] Out[facility] Encounter [id number] 11/24 [facility] OFF[facility] O/P EST MOD 30 MIN [id number] Diagnos is: ICD-10- CM L72.3 Sebaceo us cyst
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 11/25 [facility] En[facility] [id number] 11/27 [facility] Out[facility] Encounter [id number] 12/03 [facility] Outpatient [facility]counter [id number] 12[facility]03 [facility] Out[facility] Encounter [id number] 12/04 [facility] COLLJ & INTERPJ DATA EA 30 D [id number] Diagnos is: ICD-10- CM G47.30 Sleep apnea, unspeci fied
KEYON MCNALLY A 12/21 [facility] Out[facility] Encounter [id number] 12/21 [facility] Outpatient Encounter [id number] 12[facility]24 [facility] Outpatient Encounter [id number] 12/28 [facility] Outpatient Encounter [id number] 12/29 [facility] Outpatient Encounter [id number] 12/30 [facility] Outpatient [facility]counter [id number] 12/30 [facility] Outpatient [facility]counter [id number] 12[facility]30 [facility] Out[facility]counter [id number] 12/31 [facility] Out[facility]counter [id number] [facility] Out[facility]counter [id number] 01/06 [facility] Out[facility] Encounter [id number] 01/07 [facility] Out[facility] Encounter [id number] 01/07 [facility] Out[facility] Encounter [id number] 01/07 [facility] COMPRE OPH EXAM EST PT 1/> [id number] 1. Diagnos is: ICD-10- CM E11.9 Type 2 diabete s mellitu s without complic ations< br/> FERNANDO NGUYEN Y [place] 01/12 [facility] FIT SPECTACLES MONOFOCAL [id number] Diagnos is: ICD-10- CM Z46.0 Encount er for fit/adj st of spectac les and contact lenses< br/> WENDY,JASVIRE Y J 01/12 [facility] Out[facility] Encounter [id number] 01/12 [facility] Out[facility] Encounter [id number] 01/25 [facility] Out[facility]counter [id number] 01/25 [facility] Out[facility] Encounter [id number] 01/27 [facility] Outpatient Encounter [id number] STEVEN ANDERSON 02/09 [facility] Social History Combined list of available smoking, tobacco, and other social history from Department of Defense and Veterans Affairs facilities. Social History Type Response Date Comment Source Tobacco smoking status [facility] VA-TOBACCO FORMER USER 02/18/2023 [facility] History of tobacco use GA-TOBACCO QUIT 15 YRS OR MORE 02[facility]18/2023 [facility] History of tobacco use [facility]ACCO FORMER USER 12/31/2021 [facility] 06[facility]10[facility]2019 [facility] 12/04[facility]2017 [facility] History of tobacco use QUIT TOBACCO USE > 7 YEARS AGO 05/19/2017 [facility] History of tobacco use QUIT TOBACCO USE > 7 YEARS AGO 05/15/2016 reports quitting 27 years ago [facility] History of tobacco use QUIT TOBACCO USE > 7 YEARS AGO 03/21/2015 quit 04/11/1989, smoker 3 ppd x 10 yrs [facility] History of tobacco use HISTORY OF SMOKING 10/20/2003 stopped tobacco 14 years ago [facility] History of tobacco use HISTORY OF SMOKING 09/14/2002 quit 13 years ago [facility] History of tobacco use QUIT TOBACCO USE > 7 YEARS AGO 11/25/2001 quit [facility] History of tobacco use HISTORY OF SMOKING 09/15/2001 quit 12 years ago 04/11/1989 [facility] Plan of Care List of future care activities from Department of [facility] facilities. Additional future care activities may be listed in the Assessment and Plan section. Date/Time Care Activity Care Activity Detail Facili ty 03/15/2024 AMBULATORY - MEDICINE AMBULATORY - MEDICI NE [facility] 01/10/2024 Consult Order COMMUNITY CARE-N EUROLOGY Cons [employer] [facility] 02/16/2024 Consult Order PAIN CLINIC/NHM OUTPT [facility] [employer] [facility] 03/17/2024 Laboratory - Chemistry Order BAS IC METABOLIC PANEL (fasting) BLOOD (SST-SERUM) [facility] 03/17/2024 Laboratory - Chemistry Order IMAN ER FUNCTION BLOOD (SST-SERUM) [facility] 03/17/2024 Laboratory - Chemistry Order LIP ID PANEL FASTING BLOOD (SST-SERUM) [facility] 03/17/2024 Laboratory - Chemistry Order HEM OGLOBIN A1C PANEL BLOOD (LAV-BLOOD) [facility] 03/17/2024 Laboratory - Chemistry Order CBC AND DIFF (AUTO) BLOOD (LAV-BLOOD) [facility] 03/17/2024 Laboratory - Chemistry Order TSH BLOOD (S ST-SERUM) [facility] 03/17/2024 Laboratory - Chemistry Order ANGE ROALBUMIN CREATININE RATIO PANEL URINE (RANDOM) [facility] Advance Directives List of completed, amended, or rescinded Advance Directives on record at Department of [facility] facilities. An actual copy of the Directive is not included. Date Advance Directive Provider Source 07/02/2022 ADVANCE DIRECTIVE SANDRA BROOKS [facility] 08/07/2021 ADVANCE DIRECTIVE RADHA SAHA [facility] 11/28/2020 ADVANCE DIRECTIVE GOLDIE DUTTA [facility]
--- OUTSIDE RECORDS SUMMARY | 2024-02-17 09:28 | XMS_ITS | Continuity of Care Document ---
Author Organization [facility] Address [address] [place] [address], [address] [place] [address]- Care Team Providers Care Gallery Or Museum Curator Name Role Phone Ben Newell MD, Dylan Ferro Primary Care Physician Encounter [facility] Date(s): 12/29/23 - 01/28/24 [facility] [address] [place] [address] Drive [address] [place] [address]- Encounter Type: Triage Allergies, Adverse Reactions, Alerts Substance Criticality Severity Reaction Reaction Severity Status Nuts Active NSAIDs Active Other Food Allergy Hazelnut A ctive Immunizations Given and Recorded Vaccine Date Status Refusal Reason influenza virus vaccine, inactivated 12/07/15 Sy rded influenza virus vaccine, inactivated 1 11/08/13 Re corded influenza virus vaccine, inactivated 12/11/12 Give n influenza virus vaccine, inactivated 2 12/11/10 Gi justin Influenza Live (intranasal) (oldterm) 3 11/16/14 R ecorded hepatitis B adult vaccine 05/12/14 Given hepatitis B adult vaccine 11/12/13 Given hepatitis B adult vaccine 10/12/13 Given Zoster Vaccine Live 4 01/05/14 Recorded pneumococcal 13-valent vaccine 10/12/13 Recorded Pneumococcal Vaccine (oldterm) 5 10/06/13 Given Pneumococcal Vaccine (oldterm) 12/27/05 Given influ virus vac, H1N1, inactive(oldterm) 6 12/04/11 Given Tet/Diphth/Acel, Pertussis (oldterm) 06/19/10 Give n FluLaval (oldterm) 7 11/24/09 Given Influenza Virus Vaccine (oldterm) 11/07/08 Given Influenza Inactive (IM) (oldterm) 12/03/07 Given tetanus-diphtheria toxoids (Td) 8 04/15/02 Given 1Location History: [facility] 2Admin Note: vna 3Result Comment: [11/16/2014] administered [place] 5Admin Note: pneu 13 [facility] 6Admin Note: [place] 7Admin Note: rcvd elsewhere 8Admin Note: historical data Medications amLODIPine 5 mg oral tablet 5 mg, 1, tablet, By Mouth, Daily, Refills 0, Maintenance, 11/22/21 2:07:00 PM EDT, Partial fill uponpatient request if the prescription is for a schedule II opioid drug. Start Date: 11/22/21 Status: Ordered Repeat number: 1 aspirin 81 mg oral tablet 1 tablet = 81 mg, By Mouth, Daily, # 30 tablet, 0 Refills, Maintenance, 01/23/10 11:47:13 AM EST, Tablet Start Date: 01/23/10 Status: Ordered Quantity: 30.0 Unit: tablet Repeat number: 1 atorvastatin 40 mg oral tablet 1 tablet = 40 mg, By Mouth, Daily, # 90 tablet, 0 Refills, Maintenance, 04/20/14 4:04:30 PM EST, Tablet Start Date: 04/20/14 Status: Ordered Quantity: 90.0 Unit: tablet Repeat number: 1 baclofen 10 mg oral tablet 10 mg, 1, tablet, By Mouth, 3 times a day, Refills 0, Maintenance, 11/22/21 2:06:00 PM EDT, Partial fill upon patient request if the prescription is for a schedule II opioid drug. Start Date: 11/22/21 Status: Ordered Repeat number: 1 cholecalciferol 2000 intl units oral tablet See Instructions, 1 tablet By Mouth Daily, 0 Refills, Maintenance, 08/28/16 10:59:28 AM EDT Start Date: 08/28/16 Status: Ordered Repeat number: 1 clonazePAM 0.5 mg oral tablet 1 tablet = 0.5 mg, By Mouth, 3 times a day, 0 Refills, Maintenance, 06/19/22 2:59:00 PM EDT, Tablet, Partial fill upon patient request if the prescription is for a schedule II opioid drug. Start Date: 06/19/22 Status: Ordered Repeat number: 1 CPAP Machine See Instructions, # 1 each, Maintenance, AutoCPAP 8-20 cm H20, use Daily when sleeping, 07/04/22 8:25:00 PM EDT, Supply Start Date: 07/04/22 Status: Ordered Quantity: 1.0 Unit: each Repeat number: 1 Fish Oil By Mouth, 0 Refills, Maintenance, 11/22/21 2:06:00 PM EDT, Partial fill upon patient request if the prescription is for a schedule II opioid drug. Start Date: 11/22/21 Status: Ordered Repeat number: 1 fluticasone 50 mcg/inh nasal spray 2 sprays, Nasal, Daily, # 16 Gm, 11 Refills, Maintenance, 07/15/14 10:43:18 AM EDT, [facility]/pharmacy #[id number], 2 sprays Nasal Daily,x30 days Start Date: 07/15/14 Stop Date: 07/10/15 Status: Ordered Quantity: 16.0 Unit: g Repeat number: 12 irbesartan 300 mg oral tablet 0 Refills, Maintenance, 07/18/23 7:32:00 AM EDT, Partial fill upon patient request if the prescription is for a schedule II opioid drug. Start Date: 07/18/23 Status: Ordered Repeat number: 1 Jardiance 25 mg oral tablet 1 tablet = 25 mg, By Mouth, Daily in AM, # 30 tablet, 0 Refills, Maintenance, 01/06/24 10:26:00 AM EST, Tablet, Partial fill upon patient request if the prescription is for a schedule II opioid drug. Start Date: 01/06/24 Status: Ordered Quantity: 30.0 Unit: tablet Repeat number: 1 loratadine 10 mg oral tablet 10 mg, 1, tablet, By Mouth, Daily, Maintenance Start Date: 07/04/22 Status: Ordered Repeat number: 1 magnesium oxide 500 mg oral tablet 1 tablet = 500 mg, By Mouth, Daily, 0 Refills, Maintenance, 01/15/22 6:56:00 AM EST, Partial fill upon patient request if the prescription is for a schedule II opioid drug. Start Date: 01/15/22 Status: Ordered Repeat number: 1 Ozempic (1 mg dose) 4 mg/3 mL subcutaneous solution = 1 mg, Subcutaneous Injection, Every week, # 3 mL, 0 Refills, Maintenance, 07/18/23 7:32:00 AM EDT,Solution, Partial fill upon patient request if the prescription is for a schedule II opioid drug. Start Date: 07/18/23 Status: Ordered Quantity: 3.0 Unit: mL Repeat number: 1 Synthroid 0.2 mg oral tablet See Instructions, 1 tablet By Mouth fri-friday and 02/18 sat,sun, # 90 Doses, 0 Refills, Maintenance,01/23/10 11:46:26 AM EST, Tablet Start Date: 01/23/10 Status: Ordered Quantity: 90.0 Unit: Doses Repeat number: 1 Vitamin B-12 500 mcg oral tablet 1 tablet = 500 mcg, By Mouth, Daily, once a week on Friday, 0 Refills, Maintenance, 05/06/23 11:22:00 AM EDT, Partial fill upon patient request if the prescription is for a schedule II opioid drug. 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 Familial hyperlipidemia Confirmed Active Focal segmental glomerulosclerosis 2 Confirmed Active Herniated lumbar intervertebral disc 3 Confirmed Active Lumbar radiculitis Confirmed Active Cancer of prostate 4 Confirmed Active Migraine Confirmed Active Obstructive sleep apnea Confirmed Active Serrated polyp of colon 5 Confirmed 01/18/22 Active Severe obesity (BMI 35.0-39.9) with comorbidity Confirmed Active Vitamin D deficiency Confirmed Active 1counsel 2past biopsy, Dr Lenz Nephrology following 3MRI August 2012 4radical prostatectomy, 5repeat screening in 2026 Social History Social History Type Response Smoking Status Former smoker; Type: Cigarettes; Number of years: 10; Total pack years: 30; Started at age: 19; Stopped at age: 29; entered on: 10/12/13 Sex Sex Representation Male (finding) Patient Care team information Care Team Personnel Name: Tanna Almaraz [facility] Nurse Member Role: Lifetime Consulting Physician Name: Ben Newell MD, Dylan Ferro Position: Reference Physician Member Role: PCP Address: [address] [place] [address] Telecom: Care Team Related Persons Name: YVES SMILEY Insurance Providers Guarantor name: NA Health Plan Information #: 1 Payer: NAKITA MENDOZA Member Number: NA Policy Number: NA Group Number: NA
--- OUTSIDE RECORDS SUMMARY | 2024-02-17 09:28 | XMS_ITS | Continuity of Care Document ---
Author Organization [facility] Address [address] [place] [address], [address] [place] [address]- Care Team Providers Care Primary Substance Abuse Counselor Name Role Phone Ben Newell MD, Dylan Ferro Primary Care Physician Encounter [facility] Date(s): 12/30/23 - 01/29/24 [facility] [address] [place] [address] Drive [address] [place], [place] [address] Referring Physician: Nasreen Kaur Encounter Type: Triage Allergies, Adverse Reactions, Alerts Substance Criticality Severity Reaction Reaction Severity Status Nuts Active Other Food Allergy Hazelnut A ctive NSAIDs Active Immunizations Given and Recorded Vaccine Date Status [...] toxoids (Td) 8 04/15/02 Given 1Location History: [facility] 2Admin Note: vna 3Result Comment: [11/16/2014] administered [place] 4[place]: [place] 5Admin Note: pneu 13 pt rcvd at the or hospital 6Admin Note: or 7Admin Note: rcvd elsewhere 8Admin Note: historical [...] a schedule II opioid drug. Start Date: 5/3/23 Status: Ordered Repeat number: 1 CPAP Machine [...] 11 Refills, Maintenance, 07/15/14 10:43:18 AM EDT, [facility]/pharmacy #[id number], 2 sprays Nasal Daily,x30 days Start [...] Care Team Personnel Name: Tanna Almaraz Position: [facility] Nurse Member Role: Lifetime Consulting Physician Name: Ben Newell MD, Dylan Ferro Position: Reference Physician Member Role: PCP Address: [address] [place] [address] Telecom: Care Team Related Persons Name: YVES SMILEY Insurance Providers Guarantor name: NA Health Plan Information #: 1 Payer: NAKITA MENDOZA Member Number: NA Policy Number: DENISE Group Number: NA
--- OUTSIDE RECORDS SUMMARY | 2024-02-17 09:28 | XMS_ITS | Continuity of Care Document ---
Author Organization [facility] Address [address] [place] [address], [address] [place] [address]- Care Team Providers Care Rollout Manager Name Role Phone Ben Newell MD, Dylan Ferro Primary Care Physician Encounter [facility] [place] Date(s): 12/29/23 - 01/28/24 [facility] [address] [place] [address] Drive [address] [place], [place] [address] Attending Physician: Admtr, Ar8 Admitting Physician: AdmtrCristhian Referring Physician: Admtr, Ar8 Encounter Type: Triage Allergies, Adverse Reactions, Alerts [...] toxoids (Td) 8 04/15/02 Given 1Location History: [facility] 2Admin Note: vna 3Result Comment: [11/16/2014] administered [place] 4[place]: [place] 5Admin Note: pneu [facility] 6Admin Note: mo 7Admin Note: rcvd elsewhere 8Admin Note: historical [...] 11 Refills, Maintenance, 07/15/14 10:43:18 AM EDT, [facility]/pharmacy #[id number], 2 sprays Nasal Daily,x30 days [...] Care Team Personnel Name: Tanna Almaraz Position: [facility] Nurse Member Role: Lifetime Consulting Physician Name: Ben Newell MD, Dylan Ferro Position: Reference Physician Member Role: PCP Address: [address] [place] [address] Telecom: Care Team Related Persons Name: YVES SMILEY Insurance Providers Guarantor name: DENISE Health Plan Information #: 1 Payer: NAKITA MENDOZA Member Number: NA Policy Number: NA Group Number: NA
--- OUTSIDE RECORDS SUMMARY | 2024-02-17 09:29 | XMS_ITS ---
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 Organization [facility] Address [address] [place] [address] Care Team Providers Care Manager Hematology Name Role Phone LEV OCONNELL Primary Care Provide r Unavailable Insurance Providers: All historical and current Section Date Range: From patient's date of to the date document was created. This section includes the names of all active insurance providers for the patient. Insurance Provider Type of Coverage Plan Name Start of Policy Coverage End of Policy Coverage Group Number Member ID Insurance Provider's Telephone Number Policy Prasad's Name Patient's Relationship to Policy Prasad [employer] PREFERRED PROVIDER ORGANIZAT ION (PPO) FED EMPLO YEES Jan 26, 2020 [id number] ELIZABETH SMILEY JR PATIENT AETNA PREFERRED PROVIDER ORGANIZAT ION (PPO) [place] EMPL [facility] Feb 25, 2016 [id number] [phone] ELIZABETH SMILEY JR PATIENT AETNA PREFERRED PROVIDER ORGANIZAT ION (PPO) [place] EMPL [facility] Feb 25, 2016 [id number] ELIZABETH SMILEY PATIENT [employer]ET[employer] PREFERRED PROVIDER ORGANIZAT ION (PPO) [place]NE [place] EMPLO YE Feb 25, 2016 [id number] ELIZABETH SMILEY JR PATIENT AET[employer] PREFERRED PROVIDER ORGANIZAT ION (PPO) DWAYNE MORALESO MIMI [facility]OO[facility] Feb 24, 2016 [id number] ELIZABETH SMILEY PATIENT AETNA PHARMACY MANAGEMENT PRESCRIPT ION DWAYNE AL DEEP COOLEY Jan 26, 2020 [id number] ELIZABETH SMILEY JR PATIENT [employer]ET[employer] PHARMACY MANAGEMENT PRESCRIPT ION DAIANA Feb 25, 2016 [id number] ELIZABETH SMILEY PATIENT [employer] PHARMACY MANAGEMENT PRESCRIPT ION DWAYNE AL MIO MIMI Feb 25, 2016 [id number] ELIZABETH SMILEY PATIENT AETNA RX PRESCRIPT ION DWAYNE MORALESO MIMI COOLEY Feb 25, 2016 [id number] ELIZABETH SMILEY PATIENT AETNA RX PRESCRIPT ION FEP Feb 25, 2016 [id number] ELIZABETH SMILEY JR PATIENT [employer] POINT OF SERVICE [employer] Mar 20, 2002 [id number] ELIZABETH SMILEY PATIENT [employer]* POINT OF SERVICE Mar 20, 2002 [id number] ELIZABETH SMILEY PATIENT Selected Encounter This section includes the information on record at [place] for the Encounter. Date/Time Encounter Type Encounter Description Reason Pro vider Source Mar 07, 2023 01:26 PM Outpatient Encounter PRIMARY CARE/MEDICINE [facility] Encounter Template Text not used by NE Plan of Treatment: Future Appointments (+ 6 months) and Future Tests (+/- 45 days) The Plan of Treatment section includes future care activities for the patient from all [place] treatmentfacilities. This section includes future appointments and future orders which are active, pending or scheduled. Future Appointments This section includes appointments that were scheduled to occur 6 months from the date of the Encounter, up to a maximum of 20 appointments. The data comes from all [place] treatment facilities. Appointment Date/Time Appointment Type Appointme nt Facility Name Mar 11, 2023 02:00 PM AMBULATORY - PS[facility]CHIATRY [facility] Mar 19, 2023 01:30 PM AMBULATORY - PS[facility]CHIATRY [facility] May 30, 2023 08:00 AM AMBULATORY - MEDICINE [facility] May 30, 2023 08:15 AM [facility] Jun 04, 2023 04:00 PM AMBULATORY - [place]ICINE [place] [facility] [place] [facility] June 24, 2023 03:00 PM [facility] Aug 08, 2023 03:00 PM AMBULATORY - MEDICINE [place] [facility] [place] [facility] Aug 13, 2023 03:10 PM AMBULATORY - MEDICINE [place] [facility] [place] [facility] Sep 04, 2023 01:30 PM AMBULATORY - MEDICINE [facility] Lab Results: +/- 30 days of the encounter This section includes the Chemistry and Hematology Lab Results on record with [place] for the patient. Radiology Reports and Pathology Reports are provided separately, in subsequent sections. Lab Results This section contains the Chemistry/Hematology Results that were resulted 30 days before or 30 daysafter the date of the Encounter. Date/Time Source Result Type Result - Unit Interpretation Reference Range Comment Feb 21, 2023 07:49 AM [facility] BASIC METABOLIC PANEL (fasting) Specime n Type: SERUM No comment entered. Ordering Provider: LEV LIZAMA Report Released Date/Time: Feb 18, 2023 02:37 PM Reporting Lab: [address] [address] Performing Lab: [address] [address] UREA NITROGEN 47 mg/dL H 7-25 GLUCOSE 155 mg/dL H 65-100 SODIUM 140 mmol/L 135-145 POTASSIUM 4.8 mmol/L 3.5-5.0 CHLORIDE 106 mmol/L 100-110 CO2 26 meq/L 20-30 CREATININE, Serum 2.19 mg/dL H 0.50-1.40 eGFR(CKD-EPI 2020) 33 mL/min L >60 Feb 21, 2023 07:49 AM [facility] HEMOGLOBIN A1C PANEL Specimen Type: BLOOD Comment: Values obtained from A1C measurements can vary. For atypical A1C assays, a reported value of 7.0 could actually be between 6.72 and 7.28 if measured by a reference method. A reported value of 9.0 could actually be between 8.73 and 9.27. Ref: http://www.ngs p.org/CAPdata. asp Ordering Provider: LEV LIZAMA Report Released Date/Time: Feb 18, 2023 02:37 PM Reporting Lab: [address] [address] Performing Lab: [address] [address] HEMOGLOBIN A1C 7.0 H 4.0-5.6 Feb 21, 2023 07:49 AM [facility] LIPID PANEL FASTING Specimen Type: SERUM No comment entered. Ordering Provider: LEV LIZAMA Report Released Date/Time: Feb 18, 2023 02:37 PM Reporting Lab: [address] [address] Performing Lab: [address] [address] CHOLESTEROL 181 mg/dL TRIGLYCERIDE 244 mg/dL H 0-150 LDL calculated 105 mg/dL 0-129 CHOL/HDL 6.7 HDL CHOLESTEROL 27 mg/dL L 40-60 Feb 21, 2023 07:49 AM [facility] LIVER FUNCTION Specimen Type: SERUM No comment entered. Ordering Provider: LEV LIZAMA Report Released Date/Time: Feb 18, 2023 02:37 PM Reporting Lab: [address] [address] Performing Lab: [address] [address] PROTEIN,TOTAL 6.1 g/dL 6.0-8.3 ALBUMIN 3.8 g/dL 3.5-5.0 ALKALINE PHOSPHATASE 49 U/L 40-150 AST 10 U/L 5-34 ALT 15 U/L BILIRUBIN, TOTAL 0.3 mg/dL 0.2-1.2 Feb 21, 2023 07:49 AM [facility] TSH Specimen Type: SERUM No comment entered. Ordering Provider: LEV LIZAMA Report Released Date/Time: Feb 18, 2023 02:37 PM Reporting Lab: [facility] [address] [facility] [address] Performing Lab: [facility] [address] [address] TSH 0.69 u[IU]/mL 0.35-5.00 Feb 21, 2023 07:49 AM [facility] CBC AND DIFF (AUTO) Specimen Type: BLOOD No comment entered. Ordering Provider: LEV LIZAMA Report Released Date/Time: Feb 18, 2023 02:37 PM Reporting Lab: [facility] [address] [address] Performing Lab: [facility] [address] [address] WBC 6.00 10*3/uL 4.50-11.00 RBC 4.32 10*6/uL 4.23-5.66 HGB 12.8 g/dL 12.8-17 HCT 38.8 L 39.2-50.4 MCV 89.8 fL 82-99 MCHC 33.0 g/dL 30.8-35.1 PLT 222 10*3/uL 140-360 RDW-CV 12.4 12.0-16.0 [place], Abs 0.56 10*3/uL 0.30-1.10 MCH 29.6 pg 26.2-32.6 Neut % 70.5 43.7-75.8 Lymph % 16.2 14.0-42.3 [place] % 9.3 5.1-13.7 Eos % 3.2 0.4-6.8 Baso % 0.5 0.1-2.0 Neut, Abs 4.23 10*3/uL 2.20-7.60 Lymph, Abs 0.97 10*3/uL L 1.00-3.20 Eos, Abs 0.19 10*3/uL 0.03-0.44 Baso, Abs 0.03 10*3/uL 0.01-0.13 Immature Gran % 0.3 0.0-0.7 Immature Gran, Abs 0.02 10*3/uL 0.00-0.06 Social History: Smoking Status (Most current) and Tobacco Use (All prior to encounter date) This section includes the most current, and the historical, smoking and tobacco- related health factors from the NE facility where the Encounter took place. Current Smoking Status This section includes the most current smoking, or tobacco-related health factor, from the NE facility where the Encounter took place. Date/Time Current Smoking Status Comment Corina ity Feb 18, 2023 02:31 PM NE-TOBACCO QUIT 15 YRS OR MORE [facility] Tobacco Use History This section includes a history of the smoking, or tobacco-related health factors, that were collected on or before the date of the Encounter. The data comes from the NE facility where the Encounter took place. Date/Time Smoking Status/Tobacco Use Comment F acroger Feb 18, 2023 02:31 PM NE-TOBACCO QUIT 15 YRS OR MORE [facility] Dec 31, 2021 01:00 PM VA-TOBACCO FORMER USER [facility] Dec 31, 2021 01:00 PM NE-TOBACCO QUIT 15 YRS OR MORE [facility] Advance Directives: All historical and current Section Date Range: From patient's date of to the date document was created. This section includes ALL of a patient's completed or amended NE Advance and Rescinded Directives. The entries below indicate that a directive exists for the patient, but an actual copy is not included with this document. The data comes from all NE facilities. Date Advance Directives Provider Source July 02, 2022 ADVANCE DIRECTIVE [facility] Aug 07, 2021 ADVANCE DIRECTIVE RADHA SAHA [facility] Nov 28, 2020 ADVANCE DIRECTIVE GOLDIE DUTTA [facility] Encounter Notes: All associated encounter notes This section contains the clinical notes associated to the Encounter. Date/Time Encounter Note(s) Provider Source Mar 07, 2023 03:45 PM PRIMARY CARE SECUR E MESSAGING: LOCAL TITLE: PRIMARY CARE SECURE MESSAGING STANDARD TITLE: PRIMARY CARE SECURE MESSAGING DATE OF NOTE: MAR 07, 2023@15:45 ENTRY DATE: MAR 07, 2023@15:45:45 AUTHOR: JC GARCIA COSIGNER: URGENCY: STATUS: COMPLETED ------Original Message ------ Sent: 03/07/2023 03:45 PM ET From: JC GARCIA To: ELIZABETH SMILEY Subject: Medication:Formulary questions Good Afternoon, We received your message and spoke with the pharmacy. They stated that the medication you are inquiring about is formulary. I hope this information is helpful. Sincerely, TAMICA Westfall /bienvenido/ JC GARCIA RN REGISTERED NURSE Signed: 03/07/2023 15:45 JC GARCIA [facility] Mar 07, 2023 01:26 PM PRIMARY CARE QuenchUR E MESSAGING: LOCAL TITLE: PRIMARY CARE SECURE MESSAGING STANDARD TITLE: PRIMARY CARE SECURE MESSAGING DATE OF NOTE: MAR 07, 2023@13:26 ENTRY DATE: MAR 07, 2023@13:26:17 AUTHOR: EDUARDO OHARA EXP COSIGNER: URGENCY: STATUS: COMPLETED PRIMARY CARE SECURE MESSAGING Has ADDENDA ------Original Message ------ Sent: 03/07/2023 12:56 PM ET From: ELIZABETH SMILEY To: Adriane OCONNELL_[facility] Subject: Medication:Formulary questions Looking to find out if Irbesarten [facility] not. /bashir MENESES Signed: 03/07/2023 13:26 Receipt Acknowledged By: 03/07/2023 15:42 /bashir GARCIA RN REGISTERED NURSE 03/10/2023 08:27 /bienvenido/ MAXIMO HOFFMAN LPN LPN 03/07/2023 ADDENDUM STATUS: COMPLETED Secure message sent to the . /bashir GARCIA RN REGISTERED NURSE Signed: 03/07/2023 15:46 EDUARDO OHARA [facility]
--- OUTSIDE RECORDS SUMMARY | 2024-02-17 09:29 | XMS_ITS | Encounter Summary ---
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 [place] Organization [facility] [place] Address [address] [place] [address] Care Team Providers Care Building Supplies Salesperson Retail Name Role Phone LEV OCONNELL Primary Care [...] (PPO) FED EMPLO YE[facility] Jan 26, 2020 [id number] [phone] ELIZABETH SMILEY JR PATIENT [employer] PREFERRED PROVIDER ORGANIZAT ION (PPO) DWAYNE AL EMPLO [facility] Feb 25, 2016 [id number] ELIZABETH SMILEY JR PATIENT [employer] PREFERRED PROVIDER ORGANIZAT ION (PPO) DW[facility]NE AL EMPL [facility] Feb 25, 2016 [id number] ELIZABETH SMILEY JR PATIENT [employer] PREFERRED PROVIDER ORGANIZAT ION (PPO) DWAYNE AL EMPL [facility] Feb 25, 2016 [id number] ELIZABETH SMILEY PATIENT [employer] PREFERRED PROVIDER ORGANIZAT ION (PPO) DWAYNE AL EMPLO MIMI COOLEY Feb 24, 2016 [id number] ELIZABETH SMILEY PATIENT [employer] PHARMACY MANAGEMENT PRESCRIPT ION DWAYNE AL EMPLO MIMI COOLEY Jan 26, 2020 [id number] ELIZABETH SMILEY JR PATIENT [employer] PHARMACY MANAGEMENT PRESCRIPT ION ALICIAFT Feb 25, 2016 [id number] [phone] ELIZABETH SMILEY PATIENT [employer] PHARMACY MANAGEMENT PRESCRIPT ION DWAYNE AL EMPLO MIMI Feb 25, 2016 [id number] ELIZABETH SMILEY PATIENT AET[employer] RX PRESCRIPT ION DWAYNE AL EMPLO MIMI Feb 25, 2016 [id number] ELIZABETH SMILEY PATIENT AETNA [facility] Feb 25, 2016 [id number] ELIZABETH SMILEY JR PATIENT [employer] POINT OF SERVICE [employer] Mar 20, 2002 [id number] ELIZABETH SMILEY PATIENT [employer]IG[employer]* POINT OF SERVICE Mar 20, 2002 [id number] ELIZABETH SMILEY PATIENT Selected Encounter This section includes the information on record at [place] for the Encounter. Date/Time Encounter Type Encounter Description Reason Provider Source Feb 19, 2023 09:53 AM COLLJ & INTERPJ DATA EA 30 D TELEPHONE/MEDICIN E ICD-10-CM G47.30 Sleep apnea, unspecified FRANSICO MCNALLY E Encounter Template Text not used by [place] Assessments - Encounter Diagnoses This section includes the primary and secondary diagnoses documented for the Encounter. Date/Time Primary/Secondary Diagnosis Diagnosis Name Provider Source Feb 19, 2023 09:53 AM PRIMARY Sleep apnea, unspecified FRANSICO MCNALLY [place] [facility] [place] [facility] Plan of Treatment: Future Appointments (+ 6 months) and Future Tests (+/- 45 days) The Plan of Treatment section includes future care activities [facility] the [facility] [place] [facility] [place] This section includes future appointments and future orders which are active, pending or scheduled. Future Appointments This section includes appointments that were scheduled to occur 6 months from the date of the Encounter, up to a maximum of 20 appointments. The data comes from all [place] treatment [facility] [place] Appointment Date/Time Appointment Type Appointme nt Facility Name Mar 06, 2023 09:00 AM AMBULATORY - MEDICINE [facility] Mar 11, 2023 02:00 PM AMBULATORY - PSYCHIATRY [facility] Mar 19, 2023 01:30 PM AMBULATORY - PSYCHIATRY [facility] May 30, 2023 08:00 AM AMBULATORY - MEDICINE [facility] May 30, 2023 08:15 AM AMBULATORY - MEDICINE [facility] Jun 04, 2023 04:00 PM [facility]UL[facility] June 24, 2023 03:00 PM [facility] Aug 08, 2023 03:00 PM AMBULATORY - MEDICINE [place] [facility] Aug 13, 2023 03:10 PM [facility] Lab Results: +/- 30 days of the encounter This section includes the Chemistry and Hematology Lab Results on record with [place] for the patient. Radiology Reports and Pathology Reports are provided separately, in subsequent sections. Lab Results This section contains the Chemistry/Hematology Results that were resulted 30 days before or 30 daysafter the date of the Encounter. Date/Time Source Result Type Result - Unit Interpretation Reference Range Comment Feb 21, 2023 07:49 AM [facility] BASIC METABOLIC PANEL (fasting) Specime n Type: SERUM No comment entered. Ordering Provider: LEV LIZAMA Report Released Date/Time: Feb 18, 2023 02:37 PM Reporting Lab: [address] [address] Performing Lab: [address] [address] UREA NITROGEN 47 mg/dL H 7-25 GLUCOSE 155 mg/dL H 65-100 SODIUM 140 mmol/L 135-145 POTASSIUM 4.8 mmol/L 3.5-5.0 CHLORIDE 106 mmol/L 100-110 CO2 26 meq/L 20-30 CREATININE, Serum 2.19 mg/dL H 0.50-1.40 eGFR(CKD-EPI 2020) 33 mL/min L >60 Feb 21, 2023 07:49 AM [facility] LIPID PANEL FASTING Specimen Type: SERUM No comment entered. Ordering Provider: LEV LIZAMA Report Released Date/Time: Feb 18, 2023 02:37 PM Reporting Lab: [address] [address] Performing Lab: [address] [address] CHOLESTEROL 181 mg/dL TRIGLYCERIDE 244 mg/dL H 0-150 LDL calculated 105 mg/dL 0-129 CHOL/HDL 6.7 HDL CHOLESTEROL 27 mg/dL L 40-60 Feb 21, 2023 07:49 AM [facility] HEMOGLOBIN A1C PANEL Specimen Type: BLOOD Comment: [...] Feb 18, 2023 02:37 PM Reporting Lab: [address] [address] Performing Lab: [address] [address] HEMOGLOBIN A1C 7.0 H 4.0-5.6 Feb 21, 2023 07:49 AM [facility] LIVER FUNCTION Specimen Type: SERUM No comment entered. Ordering Provider: LEV LIZAMA Report Released Date/Time: Feb 18, 2023 02:37 PM Reporting Lab: [address] [address] Performing Lab: [address] [address] PROTEIN,TOTAL 6.1 g/dL 6.0-8.3 ALBUMIN 3.8 g/dL 3.5-5.0 ALKALINE PHOSPHATASE 49 U/L 40-150 AST 10 U/L 5-34 ALT 15 U/L BILIRUBIN, TOTAL 0.3 mg/dL 0.2-1.2 Feb 21, 2023 07:49 AM [facility] TSH Specimen Type: SERUM No comment entered. Ordering Provider: LEV LIZAMA Report Released Date/Time: Feb 18, 2023 02:37 PM Reporting Lab: [address] [address] Performing Lab: [address] [address] TSH 0.69 u[IU]/mL 0.35-5.00 Feb 21, 2023 07:49 AM [facility] CBC AND DIFF (AUTO) Specimen Type: BLOOD No comment entered. Ordering Provider: LEV LIZAMA Report Released Date/Time: Feb 18, 2023 02:37 PM Reporting Lab: [address] [address] Performing Lab: [address] [address] WBC 6.00 10*3/uL 4.50-11.00 RBC 4.32 10*6/uL 4.23-5.66 HGB 12.8 g/dL 12.8-17 HCT 38.8 L 39.2-50.4 MCV 89.8 fL 82-99 MCHC 33.0 g/dL 30.8-35.1 PLT 222 10*3/uL 140-360 RDW-CV 12.4 12.0-16.0 [place], Abs 0.56 10*3/uL 0.30-1.10 MCH 29.6 pg 26.2-32.6 Neut % 70.5 43.7-75.8 Lymph % 16.2 14.0-42.3 Slope % 9.3 5.1-13.7 Eos % 3.2 0.4-6.8 [...] and tobacco- related health factors from the [place] facility where the Encounter took place. Current Smoking Status This section includes the most current smoking, or tobacco-related health factor, from the [place] facility where the Encounter took place. Date/Time Current Smoking Status Comment Facil ity Feb 18, 2023 02:31 PM [place]-TOBACCO QUIT 15 YRS OR MORE [facility] Tobacco Use History This section includes a history of the smoking, or tobacco-related health factors, that were collected on or before the date of the Encounter. The data comes from the [place] facility where the Encounter took place. Date/Time Smoking Status/Tobacco Use Comment F acility Feb 18, 2023 02:31 PM [facility] Dec 31, 2021 01:00 PM VA-TOBACCO FORMER USER [facility] Dec 31, 2021 01:00 PM [place]-TOBACCO QUIT 15 YRS OR MORE [facility] Advance Directives: All historical and current Section Date Range: From patient's date of to the date document was created. This section includes ALL of a patient's completed or amended [place] Advance and Rescinded Directives. The entries below indicate that a directive exists for the patient, but an actual copy is not included with this document. The data comes from all [place] facilities. Date Advance Directives Provider Source July 02, 2022 ADVANCE DIRECTIVE SANDRA BROOKS [facility] Aug 07, 2021 ADVANCE DIRECTIVE RADHA SAHA [facility] Nov 28, 2020 ADVANCE DIRECTIVE GOLDIE DUTTA [facility] Encounter Notes: All associated encounter notes This section contains the clinical notes associated to the Encounter. Date/Time Encounter Note(s) Provider Source Feb 19, 2023 09:53 AM RESPIRATORY THERAP Y NOTE: LOCAL TITLE: RESPIRATORY THERAPY NOTE(BLANK) STANDARD TITLE: RESPIRATORY THERAPY NOTE DATE OF NOTE: FEB 19, 2023@09:53 ENTRY DATE: FEB 19, 2023@09:53:15 AUTHOR: FRANSICO MCNALLY COSIGNER: URGENCY: STATUS: COMPLETED Patient diagnosed with sleep apnea data reviewed for Cpap renewal and supplies ordered from [facility]. [employer] COMPLIANCE PROGRAM Patient APAP compliance data reviewed via the [employer] program for the last 90 days. SETTINGS: Apap 8 - [id number] TOTAL DAYS USED 90 DAYS USED > 4hrs 84 AVG USAGE 6 hours AVG PRESSURE [id number] LEAK 6 AHI: 1 Central 0 These results indicate is compliant. 's APAP Prescription will be renewed for 1 year. If pt has any questions or concerns regarding Apap, he/she can contact Respiratory at [phone] extension [phone]. /es/ FRANSICO MCNALLY CRT RESPIRATORY THERAPIST Signed: 02/19/2023 09:58 FRANSICO MCNALLY
--- OUTSIDE RECORDS SUMMARY | 2024-02-17 09:29 | XMS_ITS ---
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 [place]) Organization [facility] Address [address] [place] [address] Care Team Providers Care Academic Adviser Name Role Phone LEV OCONNELL Primary Care [...] PREFERRED PROVIDER ORGANIZAT ION (PPO) FED EMPLO [facility] Jan 26, 2020 [id number] ELIZABETH SMILEY JR PATIENT [employer] PREFERRED PROVIDER ORGANIZAT ION (PPO) DWAYNE AL EMPLO [facility] Feb 25, 2016 [id number] [phone] ELIZABETH SMILEY JR PATIENT [employer] PREFERRED PROVIDER ORGANIZAT ION (PPO) DWAYNE AL EMPL [facility] Feb 25, 2016 [id number] ELIZABETH SMILEY JR PATIENT [employer] PREFERRED PROVIDER ORGANIZAT ION (PPO) DWAYNE AL EMPL [facility] Feb 25, 2016 [id number] ELIZABETH SMILEY PATIENT [employer] PREFERRED PROVIDER ORGANIZAT ION (PPO) DWAYNE AL MIO MIMI COOLEY Feb 24, 2016 [id number] ELIZABETH SMILEY PATIENT [employer] PHARMACY MANAGEMENT PRESCRIPT ION DWAYNE AL EMPLO MIMI Jan 26, 2020 [id number] ELIZABETH SMILEY JR PATIENT [employer] PHARMACY MANAGEMENT PRESCRIPT ION DAIANA Feb 25, 2016 [id number] ELIZABETH SMILEY PATIENT [employer] PHARMACY MANAGEMENT PRESCRIPT ION DWAYNE AL EMPLO MIMI Feb 25, 2016 [id number] ELIZABETH SMILEY PATIENT AET[employer] RX PRESCRIPT ION DW[place]NE AL EMPLO MIMI Feb 25, 2016 [id number] ELIZABETH SMILEY PATIENT AETNA RX PRESCRIPT ION [facility] Feb 25, 2016 [id number] ELIZABETH SMILEY JR PATIENT [employer] POINT OF SERVICE [employer] Mar 20, 2002 [id number] ELIZABETH SMILEY PATIENT [employer]IG[employer]* POINT OF SERVICE Mar 20, 2002 [id number] ELIZABETH SMILEY PATIENT Selected Encounter This section includes the information on record at [place] for the Encounter. Date/Time Encounter Type Encounter Description Reason Pro vider Source Feb 18, 2023 02:06 PM Outpatient Encounter PRIMARY CARE/MEDICINE [facility] Encounter Template Text not used by [place] Plan of Treatment: Future Appointments (+ 6 months) and Future Tests (+/- 45 days) The Plan of Treatment section includes future care activities for the patient from all [place] treatmentfacilities. This section includes future appointments and future orders which are active, pending or scheduled. Future Appointments This section includes appointments that were scheduled to occur 6 months from the date of the Encounter, up to a maximum of 20 appointments. The data comes from all [place] treatment facilities. Appointment Date/Time Appointment Type Appointme nt Facility Name Mar 06, 2023 09:00 AM AMBULATORY - [facility]ICINE [facility] Mar 11, 2023 02:00 PM AMBULATORY - PSYCHIATRY [facility] Mar 19, 2023 01:30 PM AMBULATORY - PSYCHIATRY [facility] May 30, 2023 08:00 AM AMBULATORY - MEDICINE [facility] May 30, 2023 08:15 AM [facility] - [facility] Jun 04, 2023 04:00 PM AM[place]UL[place]ORY - [place]ICINE [place] [place] [facility] June 24, 2023 03:00 PM AMBULATORY - NONE [place] [facility] [place] [facility] Aug 08, 2023 03:00 PM AMBULATORY - [place]ICINE [place] [facility] Aug 13, 2023 03:10 PM AMBULATORY - [place]ICINE [place] [place] [facility] Lab Results: +/- 30 days of the encounter This section includes the Chemistry and Hematology Lab Results on record with [place] for the patient. Radiology Reports and Pathology Reports are provided separately, in subsequent sections. Lab Results This section contains the Chemistry/Hematology Results that were resulted 30 days before or 30 daysafter the date of the Encounter. Date/Time Source Result Type Result - Unit Interpretation Reference Range Comment Feb 21, 2023 07:49 AM [facility] BASIC METABOLIC PANEL (fasting) Specime n Type: SERUM No comment entered. Ordering Provider: LEV LIZAMA Report Released Date/Time: Feb 18, 2023 02:37 PM Reporting Lab: [facility] [address] [address] Performing Lab: [address] [address] UREA NITROGEN 47 mg/dL H 7-25 GLUCOSE 155 mg/dL H 65-100 SODIUM 140 mmol/L 135-145 POTASSIUM 4.8 mmol/L 3.5-5.0 CHLORIDE 106 mmol/L 100-110 CO2 26 meq/L 20-30 CREATININE, Serum 2.19 mg/dL H 0.50-1.40 eGFR(CKD-EPI 2020) 33 mL/min L >60 Feb 21, 2023 07:49 AM [facility] HEMOGLOBIN A1C PANEL Specimen Type: BLOOD Comment: Values obtained from A1C measurements can vary. For atypical A1C assays, a reported value of 7.0 could actually be between 6.72 and 7.28 if measured by a reference method. A reported value of 9.0 could actually be between 8.73 and 9.27. Ref: http://www.ngs p.org/CAPdata. asp Ordering Provider: ELV LIZAMA Report Released Date/Time: Feb 18, 2023 02:37 PM Reporting Lab: [address] [address] Performing Lab: [address] [address] HEMOGLOBIN A1C 7.0 H 4.0-5.6 Feb 21, 2023 07:49 AM [facility] LIPID PANEL FASTING Specimen Type: SERUM No comment entered. Ordering Provider: LEV LIZAMA Report Released Date/Time: Feb 18, 2023 02:37 PM Reporting Lab: [address] [address] Performing Lab: [address] [address] CHOLESTEROL 181 mg/dL TRIGLYCERIDE 244 mg/dL H 0-150 LDL calculated 105 mg/dL 0-129 CHOL/HDL 6.7 HDL CHOLESTEROL 27 mg/dL L 40-60 Feb 21, 2023 07:49 AM [facility] LIVER FUNCTION Specimen Type: SERUM No comment entered. Ordering Provider: LEV LIZAMA Report Released Date/Time: Feb 18, 2023 02:37 PM Reporting Lab: [address] [address] Performing Lab: [address] [address] PROTEIN,TOTAL 6.1 g/dL 6.0-8.3 ALBUMIN 3.8 g/dL 3.5-5.0 ALKALINE PHOSPHATASE 49 U/L 40-150 AST 10 U/L 5-34 ALT 15 U/L BILIRUBIN, TOTAL 0.3 mg/dL 0.2-1.2 Feb 21, 2023 07:49 AM [facility] TSH Specimen Type: SERUM No comment entered. Ordering Provider: LEV LIZAMA Report Released Date/Time: Feb 18, 2023 02:37 PM Reporting [facility] [address] [address] Performing [facility] [address] [address] TSH 0.69 u[IU]/mL 0.35-5.00 Feb 21, 2023 07:49 AM [facility] CBC AND DIFF (AUTO) Specimen Type: BLOOD No comment entered. Ordering Provider: LEV LIZAMA Report Released Date/Time: Feb 18, 2023 02:37 PM Reporting [facility] [address] [address] Performing [facility] [address] [address] WBC 6.00 10*3/uL 4.50-11.00 RBC 4.32 10*6/uL 4.23-5.66 HGB 12.8 g/dL 12.8-17 HCT 38.8 L 39.2-50.4 MCV 89.8 fL 82-99 MCHC 33.0 g/dL 30.8-35.1 PLT 222 10*3/uL 140-360 RDW-CV 12.4 12.0-16.0 Pike, Abs 0.56 10*3/uL 0.30-1.10 MCH 29.6 pg 26.2-32.6 Neut % 70.5 43.7-75.8 Lymph % 16.2 14.0-42.3 Pike % 9.3 5.1-13.7 Eos % 3.2 0.4-6.8 [...] and tobacco- related health factors from the [place] facility where the Encounter took place. Current Smoking Status This section includes the most current smoking, or tobacco-related health factor, from the [place] facility where the Encounter took place. Date/Time Current Smoking Status Comment Corina kooy Feb 18, 2023 02:31 PM VA-TOBACCO FORMER USER [facility] Tobacco Use History This section includes a history of the smoking, or tobacco-related health factors, that were collected on or before the date of the Encounter. The data comes from the [place] facility where the Encounter took place. Date/Time Smoking Status/Tobacco Use Comment Dafne acroger Feb 18, 2023 02:31 PM VA-TOBACCO QUIT 15 YRS OR MORE [facility] Dec 31, 2021 01:00 PM VA-TOBACCO FORMER USER [facility] Dec 31, 2021 01:00 PM [place]-TOBACCO QUIT 15 YRS OR MORE [facility] Advance Directives: All historical and current Section Date Range: From patient's date of to the date document was created. This section includes ALL of a patient's completed or amended [place] Advance and Rescinded Directives. The entries below indicate that a directive exists for the patient, but an actual copy is not included with this document. The data comes from all [place] facilities. Date Advance Directives Provider Source July 02, 2022 ADVANCE DIRECTIVE SANDRA BROOKS [facility] Aug 07, 2021 ADVANCE DIRECTIVE RADHA SAHA [facility] Nov 28, 2020 ADVANCE DIRECTIVE GOLDIE DUTTA [facility] Encounter Notes: All associated encounter notes This section contains the clinical notes associated to the Encounter. Date/Time Encounter Note(s) Provider Source Feb 18, 2023 02:06 PM PRIMARY CARE SECUR E MESSAGING: LOCAL TITLE: PRIMARY CARE SECURE MESSAGING STANDARD TITLE: PRIMARY CARE SECURE MESSAGING DATE OF NOTE: FEB 18, 2023@14:06 ENTRY DATE: FEB 18, 2023@14:06:31 AUTHOR: AMARIS GUAN COSIGNER: URGENCY: STATUS: COMPLETED ------Original Message ----- Sent: 02/18/2023 01:54 PM ET From: ELIZABETH SMILEY To: PREM OCONNELL [facility] Subject: Medication:Vitamin D3-1,000 unit My bottle (old scrip # [id number]) has no refills and I am out. Can I get this refilled please. 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
--- OUTSIDE RECORDS SUMMARY | 2024-02-17 09:29 | XMS_ITS | Encounter Summary ---
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 [place] [facility] [place] [facility] [place] Address [address] [place] [address] Care Team Providers Care Cryogenic Transport Driver Name Role Phone LEV OCONNELL Primary Care [...] (PPO) FED EMPLO YEES Jan 26, 2020 [id number] [phone] ELIZABETH SMILEY JR PATIENT [employer] PREFERRED PROVIDER ORGANIZAT ION (PPO) DWAYNE AL EMPL [facility] Feb 25, 2016 [id number] ELIZABETH SMILEY JR PATIENT [employer] PREFERRED PROVIDER ORGANIZAT ION (PPO) DWAYNE AL EMPL [facility] Feb 25, 2016 [id number] ELIZABETH SMILEY PATIENT [employer] PREFERRED PROVIDER ORGANIZAT ION (PPO) DWAYNE AL EMPLO YE Feb 25, 2016 [id number] ELIZABETH SMILEY JR PATIENT [employer] PREFERRED PROVIDER ORGANIZAT ION (PPO) DWAYNE MORALESO MIMI COO[place] Feb 24, 2016 [id number] ELIZABETH SMILEY PATIENT [employer] PHARMACY MANAGEMENT PRESCRIPT ION DWAYNE AL DEEP COOLEY Jan 26, 2020 [id number] ELIZABETH SMILEY JR PATIENT [employer] PHARMACY MANAGEMENT PRESCRIPT ION DAIANA Feb 25, 2016 [id number] ELIZABETH SMILEY PATIENT [employer] PHARMACY MANAGEMENT PRESCRIPT ION DWAYNE AL MIO MIMI Feb 25, 2016 [id number] ELIZABETH SMILEY PATIENT [employer] RX PRESCRIPT ION DWAYNE MORALESO MIMI COOLEY Feb 25, 2016 [id number] ELIZABETH SMILEY PATIENT [employer] RX PRESCRIPT ION FEP Feb 25, 2016 [id number] ELIZABETH SMILEY JR PATIENT [employer] POINT OF SERVICE TYCO Mar 20, 2002 [id number] ELIZABETH SMILEY PATIENT [employer]* POINT OF SERVICE Mar 20, 2002 [id number] ELIZABETH SMILEY PATIENT Selected Encounter This section includes the information on record at [place] for the Encounter. Date/Time Encounter Type Encounter Description Reason Pro vider Source Feb 18, 2023 02:04 PM Outpatient Encounter PRIMARY CARE/MEDICINE IHE Encounter Template Text not used by [place] Plan of Treatment: Future Appointments (+ 6 months) and Future Tests (+/- 45 days) The Plan of Treatment section includes future care activities for the patient from all [place] treatmentfacilities. This section includes future appointments and future orders which are active, pending or scheduled. Future Appointments This section includes appointments that were scheduled to occur 6 months from the date of the Encounter, up to a maximum of 20 appointments. The data comes from all [place] treatment facilities. Appointment Date/Time Appointment Type Appointme nt Facility Name Mar 06, 2023 09:00 AM AMBULATORY - MEDICINE [facility] Mar 11, 2023 02:00 PM AMBULATORY - PSYCHIATRY [facility] Mar 19, 2023 01:30 PM AMBULATORY - PSYCHIATRY [facility] May 30, 2023 08:00 AM AMBULATORY - MEDICINE [facility] May 30, 2023 08:15 AM [facility] Jun 04, 2023 04:00 PM [place] [facility] [place] [facility] June 24, 2023 03:00 PM AMBULATORY - NONE [place] [facility] [place] [facility] Aug 08, 2023 03:00 PM [place] [facility] [place] [facility] Aug 13, 2023 03:10 PM [place] [facility] [place] [facility] Lab Results: +/- 30 days of the encounter This section includes the Chemistry and Hematology Lab Results on record with [place] for the patient. Radiology Reports and Pathology Reports are provided separately, in subsequent sections. Lab Results This section contains the Chemistry/Hematology Results that were resulted 30 days before or 30 daysafter the date of the Encounter. Date/Time Source Result Type Result - Unit Interpretation Reference Range Comment Feb 21, 2023 07:49 AM [place] BASIC METABOLIC PANEL (fasting) Specime n Type: SERUM No comment entered. Ordering Provider: LEV LIZAMA Report Released Date/Time: Feb 18, 2023 02:37 PM Reporting Lab: [facility] [address] [address] Performing Lab: [address] [address] UREA NITROGEN 47 mg/dL H 7-25 GLUCOSE 155 mg/dL H 65-100 SODIUM 140 mmol/L 135-145 POTASSIUM 4.8 mmol/L 3.5-5.0 CHLORIDE 106 mmol/L 100-110 CO2 26 meq/L 20-30 CREATININE, Serum 2.19 mg/dL H 0.50-1.40 eGFR(CKD-EPI 2020) 33 mL/min L >60 Feb 21, 2023 07:49 AM [place] HEMOGLOBIN A1C PANEL Specimen Type: BLOOD Comment: [...] Feb 18, 2023 02:37 PM Reporting Lab: [address] [address] Performing Lab: [address] [address] HEMOGLOBIN A1C 7.0 H 4.0-5.6 Feb 21, 2023 07:49 AM [place] LIPID PANEL FASTING Specimen Type: SERUM No comment entered. Ordering Provider: LEV LIZAMA Report Released Date/Time: Feb 18, 2023 02:37 PM Reporting Lab: [address] [address] Performing Lab: [address] [address] CHOLESTEROL 181 mg/dL TRIGLYCERIDE 244 mg/dL H 0-150 LDL calculated 105 mg/dL 0-129 CHOL/HDL 6.7 HDL CHOLESTEROL 27 mg/dL L 40-60 Feb 21, 2023 07:49 AM [place] LIVER FUNCTION Specimen Type: SERUM No comment entered. Ordering Provider: LEV LIZAMA Report Released Date/Time: Feb 18, 2023 02:37 PM Reporting Lab: [address] [address] Performing Lab: [address] [address] PROTEIN,TOTAL 6.1 g/dL 6.0-8.3 ALBUMIN 3.8 g/dL 3.5-5.0 ALKALINE PHOSPHATASE 49 U/L 40-150 AST 10 U/L 5-34 ALT 15 U/L BILIRUBIN, TOTAL 0.3 mg/dL 0.2-1.2 Feb 21, 2023 07:49 AM [place] TSH Specimen Type: SERUM No comment entered. Ordering Provider: LEV LIZAMA Report Released Date/Time: Feb 18, 2023 02:37 PM Reporting Lab: [facility] [address] [address] Performing Lab[facility] [address] [address] TSH 0.69 u[IU]/mL 0.35-5.00 Feb 21, 2023 07:49 AM [place] CBC AND DIFF (AUTO) Specimen Type: BLOOD No comment entered. Ordering Provider: LEV LIZAMA Report Released Date/Time: Feb 18, 2023 02:37 PM Reporting Lab: [facility] [address] [address] Performing Lab: [facility] [address] [address] WBC 6.00 10*3/uL 4.50-11.00 RBC 4.32 10*6/uL 4.23-5.66 HGB 12.8 g/dL 12.8-17 HCT 38.8 L 39.2-50.4 MCV 89.8 fL 82-99 MCHC 33.0 g/dL 30.8-35.1 PLT 222 10*3/uL 140-360 RDW-CV 12.4 12.0-16.0 [place], Abs 0.56 10*3/uL 0.30-1.10 MCH 29.6 pg 26.2-32.6 Neut % 70.5 43.7-75.8 Lymph % 16.2 14.0-42.3 [place] % 9.3 5.1-13.7 Eos % 3.2 0.4-6.8 [...] and tobacco- related health factors from the [place] facility where the Encounter took place. Current Smoking Status This section includes the most current smoking, or tobacco-related health factor, from the [place] facility where the Encounter took place. Date/Time Current Smoking Status Comment Corina ity Feb 18, 2023 02:31 PM [place]-TOBAC[place] QUIT 15 YRS OR MORE [facility] Tobacco Use History This section includes a history of the smoking, or tobacco-related health factors, that were collected on or before the date of the Encounter. The data comes from the [place] facility where the Encounter took place. Date/Time Smoking Status/Tobacco Use Comment F acroger Feb 18, 2023 02:31 PM [place]-TOBAC[place] QUIT 15 YRS OR MORE [facility] Dec 31, 2021 01:00 PM [place]-TOBACCO FORMER USER [facility] Dec 31, 2021 01:00 PM [place]-TOBAC[place] QUIT 15 YRS OR MORE [facility] Advance Directives: All historical and current Section Date Range: From patient's date of to the date document was created. This section includes ALL of a patient's completed or amended [place] Advance and Rescinded Directives. The entries below indicate that a directive exists for the patient, but an actual copy is not included with this document. The data comes from all [place] facilities. Date Advance Directives Provider Source July 02, 2022 ADVANCE DIRECTIVE [facility]DRA BROOKS [facility] Aug 07, 2021 ADVANCE DIRECTIVE RADHA SAHA [facility] Nov 28, 2020 ADVANCE DIRECTIVE GOLDIE DUTTA [facility] Encounter Notes: All associated encounter notes This section contains the clinical notes associated to the Encounter. Date/Time Encounter Note(s) Provider Source Feb 18, 2023 02:04 PM PRIMARY CARE SECUR E MESSAGING: LOCAL TITLE: PRIMARY CARE SECURE MESSAGING STANDARD TITLE: PRIMARY CARE SECURE MESSAGING DATE OF NOTE: FEB 18, 2023@14:04 ENTRY DATE: FEB 18, 2023@14:04:25 AUTHOR: AMARIS GUAN EXP COSIGNER: URGENCY: STATUS: COMPLETED ------Original Message ----- Sent: 02/18/2023 01:43 PM ET From: ELIZABETH SMILEY To: PREM OCONNELL [facility] Subject: Medication:Baclofen I have no refills available for this medication. Can you please submit. 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
--- OUTSIDE RECORDS SUMMARY | 2024-02-17 09:29 | XMS_ITS | Encounter Summary ---
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 [place] Organization [facility] [place] Address [address] [place] [address] Care Team Providers Care Operators Teacher Name Role Phone LEV OCONNELL Primary Care [...] PREFERRED PROVIDER ORGANIZAT ION (PPO) [employer] EM[employer] YE Jan 26, 2020 [id number] ELIZABETH SMILEY JR PATIENT [employer] PREFERRED PROVIDER ORGANIZAT ION (PPO) [place] EMPL [facility] Feb 25, 2016 [id number] [phone] ELIZABETH SMILEY JR PATIENT [employer] PREFERRED PROVIDER ORGANIZAT ION (PPO) [place] EMPL [facility] Feb 25, 2016 [id number] ELIZABETH SMILEY PATIENT [employer] PREFERRED PROVIDER ORGANIZAT ION (PPO) [place] EMPLO [facility] Feb 25, 2016 [id number] ELIZABETH SMILEY JR PATIENT [employer] PREFERRED PROVIDER ORGANIZAT ION (PPO) DW[place] EMPLO [facility] Feb 24, 2016 [id number] ELIZABETH SMILEY PATIENT [employer] PHARMACY MANAGEMENT PRESCRIPT ION [place] EMPLO MIMI [facility]OO[facility] Jan 26, 2020 [id number] ELIZABETH SMILEY JR PATIENT [employer] PHARMACY MANAGEMENT PRESCRIPT ION KRAFT Feb 25, 2016 [id number] ELIZABETH SMILEY PATIENT [employer] PHARMACY MANAGEMENT PRESCRIPT ION [place] EMPLO MIMI Feb 25, 2016 [id number] ELIZABETH SMILEY PATIENT [employer] RX PRESCRIPT ION [place] EMPLO M[facility] Feb 25, 2016 [id number] ELIZABETH SMILEY PATIENT [employer] RX PRESCRIPT ION [facility] Feb 25, 2016 [id number] ELIZABETH SMILEY JR PATIENT [employer] POINT OF SERVICE [employer] Mar 20, 2002 [id number] ELIZABETH SMILEY PATIENT [employer]* POINT OF SERVICE Mar 20, 2002 [id number] ELIZABETH SMILEY PATIENT Selected Encounter This section includes the information on record at DC for the Encounter. Date/Time Encounter Type Encounter Description Reason Provider Source Mar 06, 2023 09:00 AM OFFICE O/P EST HI 40 MIN PRIMARY CARE/MEDICINE ICD-10-CM G47.30 Sleep apnea, unspecified LEV LIZAMA Encounter Template Text not used by DC Assessments - Encounter Diagnoses This section includes the primary and secondary diagnoses documented for the Encounter. Date/Time Primary/Secondary Diagnosis Diagnosis Name Provider Source Mar 18, 2023 01:42 PM PRIMARY Sleep apnea, unspecified LEV LIZAMA RIGO Mar 18, 2023 01:42 PM SECONDARY Allergic rhinitis, unspecified LEV LIZAMA RIGO Mar 18, 2023 01:42 PM SECONDARY Anemia, unspecified YOGIAZDIN-BOSKO MAULIK,[facility] Mar 18, 2023 01:42 PM SECONDARY Chronic kidney disease, stage 4 (severe) OMIDDIN-BOSKO MAULIK,[facility] Mar 18, 2023 01:42 PM SECONDARY Chronic neph syndrome w focal and seg glomerular lesions ILENE-BOSKO MAULIK,[facility] Mar 18, 2023 01:42 PM SECONDARY Constipation, unspecified NADAZDIN-BOSKO MAULIK,[facility] Mar 18, 2023 01:42 PM SECONDARY Cramp and spasm OMIDDIN-BOSKO MAULIK,[facility] Mar 18, 2023 01:42 PM SECONDARY Essential (primary) hypertension ILENE-ILANAKO MAULIK,[facility] Mar 18, 2023 01:42 PM SECONDARY Hypothyroidism, unspecified YOGIAZDIN-BOSKO MAULIK,[facility] Mar 18, 2023 01:42 PM SECONDARY Intervertebral disc disorders w radiculopathy, lumbar region ILENE-BOSKO MAULIK,[facility] Mar 18, 2023 01:42 PM SECONDARY Male erectile dysfunction, unspecified YOGIAZDIN-BOSKO MAULIK,[facility] Mar 18, 2023 01:42 PM SECONDARY Mixed hyperlipidemia ILENE-BOSKO MAULIK,[facility] Mar 18, 2023 01:42 PM SECONDARY Nephrotic syndrome w focal and segmental glomerular lesions ILENE-BOSKO MAULIK,[facility] Mar 18, 2023 01:42 PM SECONDARY Other [facility] Mar 18, 2023 01:42 PM SECONDARY Other obesity ILENE-BOSKO MAULIK,[facility] Mar 18, 2023 01:42 PM SECONDARY Type 2 diabetes mellitus without complications OMIDDIN-BOSKO MAULIK,[facility] Plan of Treatment: Future Appointments (+ 6 months) and Future Tests (+/- 45 days) The Plan of Treatment section includes future care activities for the patient from all [place] treatmentfacilities. This section includes future appointments and future orders which are active, pending or scheduled. Future Appointments This section includes appointments that were scheduled to occur 6 months from the date of the Encounter, up to a maximum of 20 appointments. The data comes from all [place] treatment facilities. Appointment Date/Time Appointment Type Appointme nt Facility Name Mar 11, 2023 02:00 PM AMBULATORY - PSYCHIATRY [facility] Mar 19, 2023 01:30 PM AMBULATORY - PSYCHIATRY [facility] May 30, 2023 08:00 AM AMBULATORY - MEDICINE [facility] May 30, 2023 08:15 AM AMBULATORY - MEDICINE [facility] Jun 04, 2023 04:00 PM AMBULATORY - MEDICINE [place] [facility] [place] [facility] June 24, 2023 03:00 PM AMBULATORY - NONE [place] [facility] [place] [facility] Aug 08, 2023 03:00 PM AMBULATORY - MEDICINE [place] [facility] [place] [facility] Aug 13, 2023 03:10 PM AMBULATORY - MEDICINE [place] [facility] [place] [facility] Sep 04, 2023 01:30 PM AMBULATORY - MEDICINE [facility] Lab Results: +/- 30 days of the encounter This section includes the Chemistry and Hematology Lab Results on record with DC for the patient. Radiology Reports and Pathology Reports are provided separately, in subsequent sections. Lab Results This section contains the Chemistry/Hematology Results that were resulted 30 days before or 30 daysafter the date of the Encounter. Date/Time Source Result Type Result - Unit Interpretation Reference Range Comment Feb 21, 2023 07:49 AM [facility] BASIC METABOLIC PANEL (fasting) Specime n Type: SERUM No comment entered. Ordering Provider: LEV LIZAMA Report Released Date/Time: Feb 18, 2023 02:37 PM Reporting Lab: [facility] [address] [facility] [address] Performing Lab: [facility] [address] [address] UREA NITROGEN 47 mg/dL H 7-25 GLUCOSE 155 mg/dL H 65-100 SODIUM 140 mmol/L 135-145 POTASSIUM 4.8 mmol/L 3.5-5.0 CHLORIDE 106 mmol/L 100-110 CO2 26 meq/L 20-30 CREATININE, Serum 2.19 mg/dL H 0.50-1.40 eGFR(CKD-EPI 2021) 33 mL/min L >60 Feb 21, 2023 07:49 AM [facility] HEMOGLOBIN A1C PANEL Specimen Type: BLOOD Comment: [...] Feb 18, 2023 02:37 PM Reporting Lab: [address] [address] Performing Lab: [address] [address] HEMOGLOBIN A1C 7.0 H 4.0-5.6 Feb 21, 2023 07:49 AM [facility] LIPID PANEL FASTING Specimen Type: SERUM No comment entered. Ordering Provider: LEV LIZAMA Report Released Date/Time: Feb 18, 2023 02:37 PM Reporting Lab: [address] [address] Performing Lab: [address] [address] CHOLESTEROL 181 mg/dL TRIGLYCERIDE 244 mg/dL H 0-150 LDL calculated 105 mg/dL 0-129 CHOL/HDL 6.7 HDL CHOLESTEROL 27 mg/dL L 40-60 Feb 21, 2023 07:49 AM [facility] LIVER FUNCTION Specimen Type: SERUM No comment entered. Ordering Provider: LEV LIZAMA Report Released Date/Time: Feb 18, 2023 02:37 PM Reporting Lab: [address] [address] Performing Lab: [address] [address] PROTEIN,TOTAL 6.1 g/dL 6.0-8.3 ALBUMIN 3.8 g/dL 3.5-5.0 ALKALINE PHOSPHATASE 49 U/L 40-150 AST 10 U/L 5-34 ALT 15 U/L BILIRUBIN, TOTAL 0.3 mg/dL 0.2-1.2 Feb 21, 2023 07:49 AM [facility] TSH Specimen Type: SERUM No comment entered. Ordering Provider: LEV LIZAMA Report Released Date/Time: Feb 18, 2023 02:37 PM Reporting Lab: [address] [address] Performing Lab: [address] [address] TSH 0.69 u[IU]/mL 0.35-5.00 Feb 21, 2023 07:49 AM [facility] CBC AND DIFF (AUTO) Specimen Type: BLOOD No comment entered. Ordering Provider: LEV LIZAMA Report Released Date/Time: Feb 18, 2023 02:37 PM Reporting Lab: [address] [address] Performing Lab: [address] [address] WBC 6.00 10*3/uL 4.50-11.00 RBC 4.32 10*6/uL 4.23-5.66 HGB 12.8 g/dL 12.8-17 HCT 38.8 L 39.2-50.4 MCV 89.8 fL 82-99 MCHC 33.0 g/dL 30.8-35.1 PLT 222 10*3/uL 140-360 RDW-CV 12.4 12.0-16.0 [place], Abs 0.56 10*3/uL 0.30-1.10 MCH 29.6 pg 26.2-32.6 Neut % 70.5 43.7-75.8 Lymph % 16.2 14.0-42.3 [place] % 9.3 5.1-13.7 Eos % 3.2 0.4-6.8 Baso % 0.5 0.1-2.0 Neut, Abs 4.23 10*3/uL 2.20-7.60 Lymph, Abs 0.97 10*3/uL L 1.00-3.20 Eos, Abs 0.19 10*3/uL 0.03-0.44 Baso, Abs 0.03 10*3/uL 0.01-0.13 Immature Gran % 0.3 0.0-0.7 Immature Gran, Abs 0.02 10*3/uL 0.00-0.06 Vital Signs: All taken on the encounter date This section contains inpatient and outpatient Vital Signs collected on the date of the Encounter. Date/Time Temperature Pulse Blood Pressure Respiratory Rate SP02 Pain Height Weight Body Mass Index Source Mar 06, 2023 09:03 AM 96.9 F 66 /min 132/75 mm[Hg] 97 % 237 lb 37 [facility] IE Social History: Smoking Status (Most current) and Tobacco Use (All prior to encounter date) This section includes the most current, and the historical, smoking and tobacco- related health factors from the DC facility where the Encounter took place. Current Smoking Status This section includes the most current smoking, or tobacco-related health factor, from the DC facility where the Encounter took place. Date/Time Current Smoking Status Comment Facil ity Jan 08, 2021 01:30 PM VA-TOBACCO FORMER USER [facility] Tobacco Use History This section includes a history of the smoking, or tobacco-related health factors, that were collected on or before the date of the Encounter. The data comes from the DC facility where the Encounter took place. Date/Time Smoking Status/Tobacco Use Comment F acility Jan 08, 2021 01:30 PM VA-TOBACCO QUIT 15 YRS OR MORE [facility] Jun 10, 2019 09:30 AM VA-TOBACCO FORMER USER [facility] Jun 10, 2019 09:30 AM VA-TOBACCO QUIT 15 YRS OR MORE [facility] Dec 04, 2017 11:51 AM VA-TOBACCO FORMER USER [facility] Dec 04, 2017 11:51 AM VA-TOBACCO QUIT 15 YRS OR MORE [facility] May 19, 2017 02:36 PM QUIT TOBACCO USE > 7 YEARS AGO [facility] May 15, 2016 10:07 AM QUIT TOBACCO USE > 7 YEARS AGO reports quitting 27 years ago [facility] Mar 21, 2015 02:13 PM QUIT TOBACCO USE > 7 YEARS AGO quit 04/11/1989, smoker 3 ppd x 10 yrs [facility] Oct 20, 2003 03:02 PM HISTORY OF SMOKING stopped tobacco 14 years ago [facility] Sep 14, 2002 09:25 AM HISTORY OF SMOKING quit 13 years ago [facility] Nov 25, 2001 10:54 AM QUIT TOBACCO USE > 7 YEARS AGO quit [facility] Sep 15, 2001 10:23 AM HISTORY OF SMOKING quit 12 years ago 04/11/1989 [facility] Advance Directives: All historical and current Section Date Range: From patient's date of to the date document was created. This section includes ALL of a patient's completed or amended DC Advance and Rescinded Directives. The entries below indicate that a directive exists for the patient, but an actual copy is not included with this document. The data comes from all [place] facilities. Date Advance Directives Provider Source July 02, 2022 ADVANCE DIRECTIVE SANDRA BROOKS [place] Aug 07, 2021 ADVANCE DIRECTIVE RADHA SAHA [place] Nov 28, 2020 ADVANCE DIRECTIVE GOLDIE DUTTA [facility] IE Encounter Notes: All associated encounter notes This section contains the clinical notes associated to the Encounter. Date/Time Encounter Note(s) Provider Source May 19, 2023 01:42 PM MEDICATION MGT NOT E: LOCAL TITLE: OUTPATIENT MEDICATION REQUEST STANDARD TITLE: MEDICATION MGT NOTE DATE OF NOTE: MAY 19, 2023@13:42 ENTRY DATE: MAY 19, 2023@13:43 AUTHOR: NGUYEN NEFF EXP COSIGNER: URGENCY: STATUS: COMPLETED Medication Request Date of Request: May EMPAGLIFLOZIN TAB,ORAL 10MG TAKE ONE TABLET BY MOUTH ONCE DAILY FOR DIABETES Quantity: 90 Refills: 1 Requests for MAIL /bienvenido/ NGUYEN NEFF RN REGISTERED NURSE Signed: 05/19/2023 13:43 Receipt Acknowledged By: * AWAITING SIGNATURE * LEV OCONNELL [place] [place] May 02, 2023 11:33 AM ADMINISTRATIVE NOT E: LOCAL TITLE: ADMINISTRATIVE NOTE STANDARD TITLE: ADMINISTRATIVE NOTE DATE OF NOTE: MAY 02, 2023@11:33 ENTRY DATE: MAY 02, 2023@11:33:48 AUTHOR: NGUYEN NEFFIGNER: URGENCY: STATUS: COMPLETED Letter received from [facility] Real Estate Lawyer Dr. Gato Álvarez. DOES have active consult with this provider entered 04/21/23. Letter transcribed below, typewriter operator automatic does not see Irbesartan on medication list, forwarding to PCP and clinical pharmacist for review. Original letter sent to [facility]. Dear /Elizabeth Sharp has been a patient of mine for his renal condition. He has been on a study drug Sparsentan before. He is coming off it and it is going to be replaced by Irbesartan 300 mg daily. Please dispense him this new medication through [facility] for his continued care with an ARB. Thank you for all the help Gato Álvarez MD MRCP FACP FASJonathan /bienvenido/ NGUYEN NEFF RN REGISTERED NURSE Signed: 05/02/2023 11:41 Receipt Acknowledged By: 05/06/2023 15:55 /bienvenido/ UMESH COLEMAN CLINICAL CAREER PLACEMENT SPECIALIST 05/05/2023 09:15 /bienvenido/ LEV OCONNELL MD PHYSICIAN NGUYEN NEFF Mar 06, 2023 09:00 AM PHYSICIAN NOTE: LOCAL TITLE: MD NOTE STANDARD TITLE: PHYSICIAN NOTE DATE OF NOTE: MAR 06, 2023@09:00 ENTRY DATE: MAR 05, 2023@19:58:24 AUTHOR: Adriane OCONNELL EXP COSIGNER: URGENCY: STATUS: COMPLETED NOTE Has ADDENDA Pt is 63 y/o M with PMH of obesity, HTN, HLD, NIDDM (on GLP1RA/jardiance), FSGS (Dx in 1989, f/b renal, Bx proven, currently on study drug, baseline Creat 2), obesity (BMI 37), LYN on CPAP, hypothyroidism, Prostate CA age 41 s/p radical prostatectomy, Lubar radiculopathy s/p discectomy after fall in 2014 and subsequent L5-S1 fusion in 2016 Last visit 07/2022 [facility]CP [facility] (Can have [facility] PCP under [employer] insurance) (Dr. Morin until 2018) Other providers: -- neurology [facility] last 08/2021 LBP -- non VA director compensation Dr Morales (research study)/Dr Presley (primary director compensation) for his Focal Segmental Glomerulosclerosis - -Q3m In study, testing new drug(pt on sparsentan) -- Endo Dr Lena Keller [place]-referred by [facility] [place] A1c and persistant proteinuria- last 11/2022 -- podiatry Dr Lugo at [facility] [phone] -- eye DC -- GI Dr Newberry [facility] gastroenterology - -- dermatology DC -- pain service at [facility] - for LBP - next 07/2022 --> s/p LS epidural 06/2022 -- urology [facility] 04/2022 --RTC prn as long as PSA UD since last visit #LYN f/w NON VA sleep medicine- 2022 split sleep study moderate LYN, AHI 26 increased CPAP pressure works well #h/o prostate cancer -last PSA 0.1 (06/2022) seen by urology 04/2022 during last colonoscopy ? 5mm lump where prostate used to be per urology given PSA 0.1, 20 years after radical prostatectomy there is no evidence for recurrent cancer at this time #DM2 last a1c 7 Follows with non-VA endocrinology Drinking lemonade with stevfizt metforime dc/d 2022 --> low GFR Currently taking:semaglutide 0.5mg and jardiance 10mg #LBP f/w pain service getting better after epidural injection on baclofen 10mg TID (SOB resolved with titrating dosage down), clonazepam 0.5mg TID Follows with pain clinic injections q5 months current regimen works well #Left eye- ptosis-patient reports that over the last year he noted his left upper eyelid sometimes is lower than the right, usually happens later in the day, normal in the morning Denies any pain, headache, diplopia Denies history of trauma Denies fatigue, difficulty swallowing, muscle weakness PAST MEDICAL HISTORY: -- Obesity -- HTN -- HL -- DM2 -- Hypothyroid -- Allergic rhinitis on allergy injections since 2010 -- h/o LYN 03/2020 mod-severe- on CPAP split sleep study 04/2022 moderate LYN, AHI 26, lowest spO2 86% -- influenza 03/22/2019 complicated by RLL PNA -- GERD -- PROSTATE, MALIGN NEOPLASM- 2002 -- focal segmental glomerulosclerosis Dr. Lenz- retired/ Stage C Proteinuria -- Nephrotic syndrome Dr. Presley Real Estate Lawyer [facility] admission 07/14/16 dehydration, DANIEL Dr. Presley office note 11/18/16 in CPRS 11/19/16.On Both ACEI and ARB per Nephro as of 2018 -- Lumbar radiculopathy s/p surgery -- leg cramps -- insomnia PAST SURGICAL HISTORY: -- nasal surgery - septoplasty -- s/p prostatectomy 2002 ([place]) -- History of excision of lamina of lumbar vertebra for spinal L5-S1 decompression and right foramenectomy 10/08/16 Dr. Bobby Van -- 04/2017 L5-S1 partial fusion - Right ALLERGIES:SPIRONOLACTONE, LOVASTATIN, KETOROLAC TROMETHAMINE NONSTEROIDAL ANTI-INFLAMMATORY, hazelnut (migraines) 2020---- stopped nortryptiline for - dry mouth, balance issues stoped trazadone - sob MEDICATIONS:reconcilled today -AMLODIPINE 5MG -ATORVASTATIN 40MG -FISH OIL 1000MG (500MG DHA/EPA)BID -Non-VA ASPIRIN 81MG -Non-VA OTHER CAP/TAB FSGS STUDY MED SPARSENTAN 400mg -EMPAGLIFLOZIN 10MG -SEMAGLUTIDE 0.5mg FLUTICASONE PROP 50MCG 120D NASAL -LEVOTHYROXINE NA (SYNTHROID) 200MCG MON, TUE, THURS, FRI , SAT, SN 100MCG wed SILDENAFIL CITRATE 100MG -Non-VA MAGNESIUM OXIDE 500MG BEDTIME -BACLOFEN 10MG TAB TID -CLONAZEPAM 0.5MG TAB TID A DAY MUSCLE CRAMPS TRAZODONE HCL 50MG BEDTIME NEEDED --not used since LYN rx optimized -Non-VA ACETAMINOPHEN 325MG -Non-VA DOCUSATE 50mg BID -non-va miralax prn CHOLECALCIF 25MCG (D3-1,000UNIT) Non-VA CYANOCOBALAMIN 500MCG weekly --ARTIFICIAL SALIVA TAKE 2 SPRAYS BY MOUTH EVERY 6 HOURS FAMILY HISTORY: --DM:no --Cancer:no --MD:no --CVA:no --Mental Health/addiction:Father: 53 suicide, alcoholic --Other:Mother: 57 emphysema LYN -3 sibs brother hypothyroid/hyperthyroid Ankylosing spondylitis 2 cousins recently diagnosed 2021 SOCIAL HISTORY: --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[employer], 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 -6pm) --Cohabitation: --Children: 3 step children, 1 biological --Diet: low carbs, low salt /up to 70 oz water --Exercise: daily dynamic stretching, mat exercise, limited walking - gym cardio - not going last 2 months --Caffeine: 2-4 cups/daily - decaf --EtOH:none --Tob:quit 03/1989, h/o 15 PPDY (10Y 1-3 PPD) --MJ: denies --Illicits:denies --Sexual activity: monogamous, --[facility]: [facility] 12[facility]2021 [facility] --Dental:UTD --Hospitalizations: #--[facility] pain ED 07/2022 r/o DVT thrombophlebitis of varicosity in region of pt's complaint ROS: Constitutional: fatigue, no fever/no chills, no ns Respiratory: no cough/wheezing/SOB Cardiovascular: no CP /palpitations/le edema Gastrointestinal: no abdominal pain/bloody/black stools, C + intermittent : no LUTS, hematuria MSK: chronic LBP improved after epidural Skin: no pruritus/rash PHYSICAL EXAM: Vital Signs: Blood Pressure: 132/75 (03/06/2023 09:03) 115/67 (08/12/2022 08:35) 135/73 (12/31/2021 13:14) 137/79 (01/08/2021 13:32) Pulse: 66 (03/06/2023 09:03) Respiration: 18 Temperature: 96.9 F [36.1 C] (03/06/2023 09:03) Patient Weight: BMI: 37.1 237 lb [107.50 kg] (03/06/2023 09:03) 233.8 lb [106.05 kg] (08/12/2022 08:35) 236.8 lb [107.41 kg] (12/31/2021 13:14) 238 lb [108.2 kg] (01/08/2021 13:32) 230.1 lb [104.6 kg] (04/06/2019 10:16) GA: NAD, AOx3 NECK: supple, no JVD, no LAD, no thyromegaly or masses ENT: PERRLA, EOMI, no ptosis appreciated today, CN 2-12 intact CVS: RRR Lungs: CTA b/l abd: BS+, NT, ND LE: no edema LABORATORY:02/2023 WBC: 6.00 HGB: 12.8 HCT: 38.8 L MCV: 89.8 PLT: 222 HGB A1C (WR): 7.0 H GLUCOSE: 155 H UREA NITROGEN: 47 H ch stable CREATININE-EGFR: 2.19 H eGFR CKD-EPI 2020: 33 L SODIUM: 140 POTASSIUM: 4.8 CHLORIDE: 106 CO2: 26 PROTEIN,TOTAL: 6.1 ALBUMIN: 3.8 ALKALINE PHOSPHATASE: 49 BILIRUBIN,TOT.: 0.3 SGOT: 10 SGPT: 15 CHOLESTEROL: 181 TRIGLYCERIDE: 244 H --> LDL CHOL: 105 CHOL/HDL RATIO: 6.7 HDL: 27 L TSH (Access): 0.69 --2022-- TIBC (WROX): 281 IRON (WROX): 65 FERRITIN (WR): 23 TRANSFERRIN SATURATION: 23.1 VIT. B12 (WROX): 333 PROSTATIC SP ANTIGEN: < 0.10 VITAMIN D TOTAL: 34 HLA B27: Negative IMAGING: #ECHO 05/03/2020 Mild LVH suggestive of hypertensive pathophysiology. LVEF 65-70%. No hemodynamically significant valve disease. #sleep study 03/23/2020 1. Moderate to Severe LYN Syndrome: (AHI) of 28.1/hr and supine HST-AHI was 38.6/hr The mean arterial oxygen saturation on room air was 95.3% and nadired to 84.0%. The saturation <90% = 2.9 mins., 0.7% of total recording time. #2022 split sleep study moderate LYN, AHI 26 #LS MRI 04/2021 Impression 1.Post laminectomy and posterior fusion changes on the right at L5-S1 with disc bulging, posterolateral disc osteophyte complex and facet arthropathy at this level without significant spinal canal stenosis. There is moderate bilateral neural foraminal stenosis with disc osteophyte complex abutting the exiting L5 nerve roots bilaterally. Suspect bilateral pars defects at L5 2.Mild ligamentum flavum thickening and facet arthrosis at L4-L5 ASSESSMENT/PLAN: Pt is 63 y/o M with PMH of obesity, HTN, HLD, NIDDM (on GLP1RA/jardiance), FSGS (Dx in 1989, f/b renal, Bx proven, currently on study drug, baseline Creat 2), obesity (BMI 37), LYN on CPAP, hypothyroidism, Prostate CA age 41 s/p radical prostatectomy, Lubar radiculopathy s/p discectomy after fall in 2014 and subsequent L5-S1 fusion in 2016 #LYN- 04/2022 moderate LYN AHI 26, lowest spO2 86% f/w non [facility] sleep clinic,09[facility] -c/w APAP -fully compliant -c/w flonase for congestion prn #insomnia: Since LYN treatment optimized has not used trazadone prn taking loratadine pm and flonase agreed to trial of alfastim #HTN well controlled #HL: LDL 105 -ATORVASTATIN 40 mg -Non-VA ASPIRIN 81MG -150 min mod cardio exercise /week -c/w AMLODIPINE 5MG -Non-VA OTHER CAP/TAB FSGS STUDY MED SPARSENTAN 400mg daily #ED--sildenafil #h/o prostate cancer s/p radical prostatectomy 2002, last PSA <0.1 seen by urology 04/2022, RTC prn - -c/to monitor PSA anuually and refer to urology if trending up #CKD,Proteinuria,biopsy proven primary FSGS : eGFR 33 He has taken immunosuppression in the past. on Jardiance and SPARSENTAN 400mg daily adequate hydration encouraged -Non-VA CHOLECALCIF 25MCG (D3-1,000UNIT) avoid NSAID's no retinopathy or neuropathy -f/w non VA renal q3m #obesity BMI 37- on GLP1RA - declined referral to move/nutrition #NIDDM: well controlled, A1c 7 -c/w empagliflozin 10mg -c/w semaglutide 0.5mg qw -diet and exercise discussed -eye: 12/2022 Type 2 Diabetes without signs of retinopathy or macular edema OU - -feet:UTD #mild normocytic anemia TSH, b12, iron wnl (2022) -monitor likely ACD -f/w renal #hypothyroidism, TSH 0.69, clinically and biochemically euthyroid on current dose #LBP w/radiculopathy: improved with acupuncture/injections -c/w tylenol prn -f/w pain service NON [facility] -c/w HEP -f/w neurology #allergic rhinits flonase prn claritin daily #leg cramps - much improved after LS injection and adding clonzepam -c/w BACLOFEN 10MG TID -c/w CLONAZEPAM 0.5MG TAB TID -f/w neurology #Constipation: Regular bowel movement with increased fiber and PEG prn xerostomia likely 2/2 meds, improved off pamelor still on claritin art saliva prn Non-VA DOCUSATE 50mg BID -miralalx prn #Self-reported unilateral ptosis (left eye)-on PE today - no evidence of ptosis, EOMI, PERRLA -Patient will monitor symptoms in case of any new, worsening symptoms instructed to RTC Healthcare maintenance: --Lipids: LDL 105 (02/2023) --Diabetes: A1c 7 (02/2023) --Colon CA (50-75): DUE 12/2026 #colonOSCOPY 06/2011 repeat 10 yrs #EGD/COlonoscopy 12/2021 Dr Newberry [facility] GI >> COLONOSCOPY Polyp in ascending colon {8 mm) polypectomy --> path - Sessile serrated lesion, fragmented, without cytologic dysplasia. Internal & External hemorrhoids Diverticulosis descending and sigmoid colon Abnormal digital rectal exam - nodular prostate -->pt s/p prostatectomy >> EGD -Normal esophagus/stomach/examined duodenum. --Lung CA: n/a --PSA PSA < 0.10 (06/2022) --AAA (smoker/65): at 65 --Influenza (yrly): 2022 --COVID x3 --PCV13 2013 --PCV23: 2017 --HZV (>60yrs, x1): 2014 --RZV (>50yrs, x2): --TDAP: 2020 --HBV 2014 --Hep C screen: 2017 neg --HIV screen: --DEXA: --Advanced Directives: Return to clinic to see me 6m , sooner PRN. Virtual ( ), F2F ( x ) (x) fasting labs ordered prior to f/u +PSA (x) request records from outside providers,PRIOR TO NEXT VISIT -renal -Dr Lugo podiatry ([facility]) --> next 05/15/2023 Medication Reconcilia from sleeping all the timeon: Outpatient: Has the patient been taking medications as documented in the EMLR? YES: The patient has been taking medications as documented in the EMLR. Essential Medication List for Review used to complete this medication reconciliation. INCLUDED IN THIS LIST: Alphabetical list of active outpatient prescriptions dispensed from this [facility] (local) and dispensed from another [place] or [facility] facility (remote) as well as inpatient orders (local, pending and active), local clinic medications, locally documented non-VA medications, and local prescriptions that have or been discontinued in the past 90 days. - All changes in medications, including all non-VA/Herbal/OTC medications were entered into CPRS. - If there were any medications the patient should no longer take, they were discontinued. - The patient/caregiver was instructed to update this list, discard old lists, and take this list to the next appointment, whether with a VA or non-VA provider. /bienvenido/ LEV OCONNELL MD PHYSICIAN Signed: 03/08/2023 19:57 Receipt Acknowledged By: 03/10/2023 07:40 /bienvenido/ EDUARDO MENESES 05/05/2023 ADDENDUM STATUS: COMPLETED Dear /, Elizabeth Smiley has been a patient of mine for his renal condition. He has been on a study drug Sparsentan before. He is coming off it and it is going to be replaced by Irbesartan 300 mg daily. Please dispense him this new medication through [facility] for his continued care with an [facility]B. Thank you for all the help Gato Álvarez MD MRCP FACP RAGHAV /bienvenido/ LEV OCONNELL MD PHYSICIAN Signed: 05/05/2023 09:16 09/03/2023 ADDENDUM STATUS: COMPLETED Nephrology note received, available in PCP folder for review as PCP appointment is tomorrow 09/04/2023. /bienvenido/ Ama Caruso RN Registered Nurse Signed: 09/03/2023 09:31 JUAN OCONNELL
--- OUTSIDE RECORDS SUMMARY | 2024-02-17 09:29 | XMS_ITS | Encounter Summary ---
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 Address [address] [place] [address] Care Team Providers Care Lining Baster Name Role Phone LEV OCONNELL Primary Care [...] (PPO) FED EMPLO YE Jan 26, 2020 [id number] ELIZABETH SMILEY JR PATIENT [employer] PREFERRED PROVIDER ORGANIZAT ION (PPO) [facility] Feb 25, 2016 [id number] ELIZABETH SMILEY JR PATIENT [employer] PREFERRED PROVIDER ORGANIZAT ION (PPO) DWAYNE AL EMPL [facility] Feb 25, 2016 [id number] ELIZABETH SMILEY JR PATIENT [employer] PREFERRED PROVIDER ORGANIZAT ION (PPO) DWAYNE AL EMPL [facility] Feb 25, 2016 [id number] ELIZABETH SMILEY PATIENT [employer] PREFERRED PROVIDER ORGANIZAT ION (PPO) DWAYNE MORALESO MIMI COOLEY Feb 24, 2016 [id number] ELIZABETH SMILEY PATIENT [employer] PHARMACY MANAGEMENT PRESCRIPT ION DWAYNE AL EMPLO MIMI Jan 26, 2020 [id number] ELIZABETH SMILEY JR PATIENT [employer] PHARMACY MANAGEMENT PRESCRIPT ION DAIANA Feb 25, 2016 [id number] ELIZABETH SMILEY PATIENT [employer] PHARMACY MANAGEMENT PRESCRIPT ION DWAYNE AL EMPLO MIMI Feb 25, 2016 [id number] ELIZABETH SMILEY PATIENT [employer] RX PRESCRIPT ION DWAYNE AL EMPLO MIMI Feb 25, 2016 [id number] ELIZABETH SMILEY PATIENT [employer] RX [facility]CRIPT [facility] Feb 25, 2016 [id number] ELIZABETH BELCHER PATIENT [employer] POINT OF SERVICE [employer] Mar 20, 2002 [id number] ELIZABETH SMILEY PATIENT [employer]* POINT OF SERVICE Mar 20, 2002 [id number] ELIZABETH SMILEY PATIENT Selected Encounter This section includes the information on record at [place] for the Encounter. Date/Time Encounter Type Encounter Description Reason Pro vider Source Feb 18, 2023 01:51 PM Outpatient Encounter RESPIRATORY THERAPY IHE Encounter Template Text not used by [place] Plan of Treatment: Future Appointments (+ 6 months) and Future Tests (+/- 45 days) The Plan of Treatment section includes future care activities for the patient from all [place] treatmentfacilities. This section includes future appointments and future orders which are active, pending or scheduled. Future Appointments This section includes appointments that were scheduled to occur 6 months from the date of the Encounter, up to a maximum of 20 appointments. The data comes from all [place] treatment facilities. Appointment Date/Time Appointment Type Appointme nt Facility Name Mar 06, 2023 09:00 AM AMBULATORY - MEDICINE [facility] Mar 11, 2023 02:00 PM AMBULATORY - PSYCHIATRY [facility] Mar 19, 2023 01:30 PM AMBULATORY - PSYCHIATRY [facility] May 30, 2023 08:00 AM AMBULATORY - MEDICINE [facility] May 30, 2023 08:15 AM [facility] Jun 04, 2023 04:00 PM [place] [facility] [place] [facility] June 24, 2023 03:00 PM AMBULATORY - NONE [facility] [place] [facility] Aug 08, 2023 03:00 PM [place] [facility] [place] [facility] Aug 13, 2023 03:10 PM [place] [facility] [place] [facility] Lab Results: +/- 30 days of the encounter This section includes the Chemistry and Hematology Lab Results on record with [place] for the patient. Radiology Reports and Pathology Reports are provided separately, in subsequent sections. Lab Results This section contains the Chemistry/Hematology Results that were resulted 30 days before or 30 daysafter the date of the Encounter. Date/Time Source Result Type Result - Unit Interpretation Reference Range Comment Feb 21, 2023 07:49 AM [facility] BASIC METABOLIC PANEL (fasting) Specime n Type: SERUM No comment entered. Ordering Provider: LEV LIZAMA Report Released Date/Time: Feb 18, 2023 02:37 PM Reporting Lab: [facility] [place] [address] [address] Performing Lab: [address] [address] UREA NITROGEN 47 mg/dL H 7-25 GLUCOSE 155 mg/dL H 65-100 SODIUM 140 mmol/L 135-145 POTASSIUM 4.8 mmol/L 3.5-5.0 CHLORIDE 106 mmol/L 100-110 CO2 26 meq/L 20-30 CREATININE, Serum 2.19 mg/dL H 0.50-1.40 eGFR(CKD-EPI 2020) 33 mL/min L >60 Feb 21, 2023 07:49 AM [facility] LIPID PANEL FASTING Specimen Type: SERUM No comment entered. Ordering Provider: LEV LIZAMA Report Released Date/Time: Feb 18, 2023 02:37 PM Reporting Lab: [address] [address] Performing Lab: [address] [address] CHOLESTEROL 181 mg/dL TRIGLYCERIDE 244 mg/dL H 0-150 LDL calculated 105 mg/dL 0-129 CHOL/HDL 6.7 HDL CHOLESTEROL 27 mg/dL L 40-60 Feb 21, 2023 07:49 AM [facility] HEMOGLOBIN A1C PANEL Specimen Type: BLOOD Comment: [...] Feb 18, 2023 02:37 PM Reporting Lab: [address] [address] Performing Lab: [address] [address] HEMOGLOBIN A1C 7.0 H 4.0-5.6 Feb 21, 2023 07:49 AM [facility] LIVER FUNCTION Specimen Type: SERUM No comment entered. Ordering Provider: LEV LIZAMA Report Released Date/Time: Feb 18, 2023 02:37 PM Reporting Lab: [address] [address] Performing Lab: [address] [address] PROTEIN,TOTAL 6.1 g/dL 6.0-8.3 ALBUMIN 3.8 g/dL 3.5-5.0 ALKALINE PHOSPHATASE 49 U/L 40-150 AST 10 U/L 5-34 ALT 15 U/L BILIRUBIN, TOTAL 0.3 mg/dL 0.2-1.2 Feb 21, 2023 07:49 AM [facility] TSH Specimen Type: SERUM No comment entered. Ordering Provider: LEV LIZAMA Report Released Date/Time: Feb 18, 2023 02:37 PM Reporting Lab: [facility] [place] [address] [facility] [address] Performing Lab: [address] [address] TSH 0.69 u[IU]/mL 0.35-5.00 Feb 21, 2023 07:49 AM [facility] CBC AND DIFF (AUTO) Specimen Type: BLOOD No comment entered. Ordering Provider: LEV LIZAMA Report Released Date/Time: Feb 18, 2023 02:37 PM Reporting Lab: [address] [address] Performing Lab: [address] [address] WBC 6.00 10*3/uL 4.50-11.00 RBC 4.32 10*6/uL 4.23-5.66 HGB 12.8 g/dL 12.8-17 HCT 38.8 L 39.2-50.4 MCV 89.8 fL 82-99 MCHC 33.0 g/dL 30.8-35.1 PLT 222 10*3/uL 140-360 RDW-CV 12.4 12.0-16.0 Geary, Abs 0.56 10*3/uL 0.30-1.10 MCH 29.6 pg 26.2-32.6 Neut % 70.5 43.7-75.8 Lymph % 16.2 14.0-42.3 Geary % 9.3 5.1-13.7 Eos % 3.2 0.4-6.8 [...] and tobacco- related health factors from the [place] facility where the Encounter took place. Current Smoking Status This section includes the most current smoking, or tobacco-related health factor, from the [place] facility where the Encounter took place. Date/Time Current Smoking Status Comment Corina kooy Feb 18, 2023 02:31 PM [place]-TOBAC[place] QUIT 15 YRS OR MORE [facility] Tobacco Use History This section includes a history of the smoking, or tobacco-related health factors, that were collected on or before the date of the Encounter. The data comes from the [place] facility where the Encounter took place. Date/Time Smoking Status/Tobacco Use Comment F acroger Feb 18, 2023 02:31 PM [place]-TO[place]IT 15 YRS OR MORE [facility] Dec 31, 2021 01:00 PM [place]-TOBACCO FORMER USER [facility] Dec 31, 2021 01:00 PM [place]TO[place]AC[place]IT 15 YRS OR MORE [facility] Advance Directives: All historical and current Section Date Range: From patient's date of to the date document was created. This section includes ALL of a patient's completed or amended [place] Advance and Rescinded Directives. The entries below indicate that a directive exists for the patient, but an actual copy is not included with this document. The data comes from all [place] facilities. Date Advance Directives Provider Source July 02, 2022 ADVANCE DIRECTIVE SANDRA BROOKS [facility] Aug 07, 2021 ADVANCE DIRECTIVE RADHA SAHA [facility] Nov 28, 2020 ADVANCE DIRECTIVE GOLDIE DUTTA [facility] Encounter Notes: All associated encounter notes This section contains the clinical notes associated to the Encounter. Date/Time Encounter Note(s) Provider Source Feb 18, 2023 01:51 PM TELEPHONE ENCOUNTE R NOTE: LOCAL TITLE: TELEPHONE NOTE/SPECIALTY CLINIC STANDARD TITLE: TELEPHONE ENCOUNTER NOTE DATE OF NOTE: FEB 18, 2023@13:51 ENTRY DATE: FEB 18, 2023@13:51:13 AUTHOR: MARY JOINER EXP COSIGNER: URGENCY: STATUS: COMPLETED [place] called requesting a new head piece for his CPAP /es/ MARY JOINER SALON STYLIST Signed: 02/18/2023 13:52 Receipt Acknowledged By: 02/19/2023 13:25 /es/ ROXANA MIRANDA,ASSISTANT TO THE [facility] RESPIRATORY THERAPIST 02/19/2023 15:29 /es/ MITCH HERNANDEZ RESPIRATORY THERAPIST 02/19/2023 09:52 /es/ FRANSICO MCNALLY, LINER ASSEMBLER RESPIRATORY THERAPIST MARY JOINER [place] [facility]
--- OUTSIDE RECORDS SUMMARY | 2024-02-17 09:29 | XMS_ITS | Encounter Summary ---
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 Organization [facility] [place] Address [address] [place] [address] Care Team Prov[address] Care Court Magistrate Name Role Phone LEV OCONNELL Primary Care [...] PREFERRED PROVIDER ORGANIZAT ION (PPO) FED EMPLO [facility] Jan 26, 2020 [id number] [phone] ELIZABETH SMILEY JR PATIENT [employer] PREFERRED PROVIDER ORGANIZAT ION (PPO) DWAYNE AL EMPLO [facility] Feb 25, 2016 [id number] ELIZABETH SMILEY JR PATIENT [employer] PREFERRED PROVIDER ORGANIZAT ION (PPO) DWAYNE AL EMPL [facility] Feb 25, 2016 [id number] ELIZABETH SMILEY JR PATIENT [employer] PREFERRED PROVIDER ORGANIZAT ION (PPO) DWAYNE AL EMPL [facility] Feb 25, 2016 [id number] ELIZABETH SMILEY PATIENT [employer]ETNA PREFERRED PROVIDER ORGANIZAT ION (PPO) DWAYNE AL MIO MIMI [facility] Feb 24, 2016 [id number] ELIZABETH SMILEY PATIENT [employer]ET[employer] PHARMACY MANAGEMENT PRESCRIPT ION DWAYNE AL EMPLO MIMI Jan 26, 2020 [id number] ELIZABETH SMILEY JR PATIENT [employer] PHARMACY MANAGEMENT PRESCRIPT ION DAIANA Feb 25, 2016 [id number] ELIZABETH SMILEY PATIENT [employer] PHARMACY MANAGEMENT PRESCRIPT ION DWAYNE AL EMPLO MIMI Feb 25, 2016 [id number] ELIZABETH SMILEY PATIENT [employer]ETNA RX PRESCRIPT ION DWAYNE AL EMPLO MIMI Feb 25, 2016 [id number] ELIZABETH SMILEY PATIENT [facility] Feb 25, 2016 [id number] ELIZABETH SMILEY JR PATIENT [employer] POINT OF SERVICE [employer] Mar 20, 2002 [id number] ELIZABETH SMILEY PATIENT [employer]IG[employer]* POINT OF SERVICE Mar 20, 2002 [id number] ELIZABETH SMILEY PATIENT Selected Encounter This section includes the information on record at [place] for the Encounter. Date/Time Encounter Type Encounter Description Reason Pro vider Source Feb 18, 2023 02:31 PM Outpatient Encounter PRIMARY CARE/MEDICINE IHE Encounter Template Text not used by [place] Plan of Treatment: Future Appointments (+ 6 months) and Future Tests (+/- 45 days) The Plan of Treatment section includes future care activities for the patient from all [place] treatmentfacilities. This section includes future appointments and future orders which are active, pending or scheduled. Future Appointments This section includes appointments that were scheduled to occur 6 months from the date of the Encounter, up to a maximum of 20 appointments. The data comes from all [place] treatment facilities. Appointment Date/Time Appointment Type Appointme nt Facility Name Mar 06, 2023 09:00 AM AMBULATORY - MEDICINE [facility] Mar 11, 2023 02:00 PM AMBULATORY - PSYCHIATRY [facility] Mar 19, 2023 01:30 PM AMBULATORY - PSYCHIATRY [facility] May 30, 2023 08:00 AM AMBULATORY - MEDICINE [facility] May 30, 2023 08:15 AM [facility] Jun 04, 2023 04:00 PM AMBULATORY - MEDICINE [place] [facility] June 24, 2023 03:00 PM AMBULATORY - NONE [place] [facility] [place] [facility] Aug 08, 2023 03:00 PM AMBULATORY - MEDICINE IN [place] [facility] Aug 13, 2023 03:10 PM AMBULATORY - MEDICINE IN [facility] [place] [facility] Lab Results: +/- 30 days of the encounter This section includes the Chemistry and Hematology Lab Results on record with [place] for the patient. Radiology Reports and Pathology Reports are provided separately, in subsequent sections. Lab Results This section contains the Chemistry/Hematology Results that were resulted 30 days before or 30 daysafter the date of the Encounter. Date/Time Source Result Type Result - Unit Interpretation Reference Range Comment Feb 21, 2023 07:49 AM [facility] BASIC METABOLIC PANEL (fasting) Specime n Type: SERUM No comment entered. Ordering Provider: LEV LIZAMA Report Released Date/Time: Feb 18, 2023 02:37 PM Reporting Lab: [facility] [address] [address] Performing Lab: [address] [address] UREA NITROGEN 47 mg/dL H 7-25 GLUCOSE 155 mg/dL H 65-100 SODIUM 140 mmol/L 135-145 POTASSIUM 4.8 mmol/L 3.5-5.0 CHLORIDE 106 mmol/L 100-110 CO2 26 meq/L 20-30 CREATININE, Serum 2.19 mg/dL H 0.50-1.40 eGFR(CKD-EPI 2020) 33 mL/min L >60 Feb 21, 2023 07:49 AM [facility] HEMOGLOBIN A1C PANEL Specimen Type: BLOOD Comment: [...] Feb 18, 2023 02:37 PM Reporting Lab: [address] [address] Performing Lab: [address] [address] HEMOGLOBIN A1C 7.0 H 4.0-5.6 Feb 21, 2023 07:49 AM [facility] LIPID PANEL FASTING Specimen Type: SERUM No comment entered. Ordering Provider: LEV LIZAMA Report Released Date/Time: Feb 18, 2023 02:37 PM Reporting Lab: [address] [address] Performing Lab: [address] [address] CHOLESTEROL 181 mg/dL TRIGLYCERIDE 244 mg/dL H 0-150 LDL calculated 105 mg/dL 0-129 CHOL/HDL 6.7 HDL CHOLESTEROL 27 mg/dL L 40-60 Feb 21, 2023 07:49 AM [facility] LIVER FUNCTION Specimen Type: SERUM No comment entered. Ordering Provider: LEV LIZAMA Report Released Date/Time: Feb 18, 2023 02:37 PM Reporting Lab: [address] [address] Performing Lab: [address] [address] PROTEIN,TOTAL 6.1 g/dL 6.0-8.3 ALBUMIN 3.8 g/dL 3.5-5.0 ALKALINE PHOSPHATASE 49 U/L 40-150 AST 10 U/L 5-34 ALT 15 U/L BILIRUBIN, TOTAL 0.3 mg/dL 0.2-1.2 Feb 21, 2023 07:49 AM [facility] TSH Specimen Type: SERUM No comment entered. Ordering Provider: LEV LIZAMA Report Released Date/Time: Feb 18, 2023 02:37 PM Reporting Lab: [facility] [address] [address] Performing Lab: [facility] [address] [address] TSH 0.69 u[IU]/mL 0.35-5.00 Feb 21, 2023 07:49 AM [facility] CBC AND DIFF (AUTO) Specimen Type: BLOOD No comment entered. Ordering Provider: LEV LIZAMA Report Released Date/Time: Feb 18, 2023 02:37 PM Reporting Lab: [facility] [address] [address] Performing Lab: [facility] [address] [address] WBC 6.00 10*3/uL 4.50-11.00 RBC 4.32 10*6/uL 4.23-5.66 HGB 12.8 g/dL 12.8-17 HCT 38.8 L 39.2-50.4 MCV 89.8 fL 82-99 MCHC 33.0 g/dL 30.8-35.1 PLT 222 10*3/uL 140-360 RDW-CV 12.4 12.0-16.0 [place], Abs 0.56 10*3/uL 0.30-1.10 MCH 29.6 pg 26.2-32.6 Neut % 70.5 43.7-75.8 Lymph % 16.2 14.0-42.3 [place] % 9.3 5.1-13.7 Eos % 3.2 0.4-6.8 [...] and tobacco- related health factors from the [place] facility where the Encounter took place. Current Smoking Status This section includes the most current smoking, or tobacco-related health factor, from the [place] facility where the Encounter took place. Date/Time Current Smoking Status Comment Corina ity Feb 18, 2023 02:31 PM VA-TOBACCO FORMER USER [facility] Tobacco Use History This section includes a history of the smoking, or tobacco-related health factors, that were collected on or before the date of the Encounter. The data comes from the [place] facility where the Encounter took place. Date/Time Smoking Status/Tobacco Use Comment F acroger Feb 18, 2023 02:31 PM VA-TOBACCO QUIT 15 YRS OR MORE [facility] Dec 31, 2021 01:00 PM VA-TOBACCO FORMER USER [facility] Dec 31, 2021 01:00 PM VA-TOBACCO QUIT 15 YRS OR MORE [facility] Advance Directives: All historical and current Section Date Range: From patient's date of to the date document was created. This section includes ALL of a patient's completed or amended [place] Advance and Rescinded Directives. The entries below indicate that a directive exists for the patient, but an actual copy is not included with this document. The data comes from all [place] facilities. Date Advance Directives Provider Source July 02, 2022 ADVANCE DIRECTIVE SANDRA BROOKS [facility] Aug 07, 2021 ADVANCE DIRECTIVE RADHA SAHA [facility] Nov 28, 2020 ADVANCE DIRECTIVE GOLDIE DUTTA [facility] Encounter Notes: All associated encounter notes This section contains the clinical notes associated to the Encounter. Date/Time Encounter Note(s) Provider Source Feb 18, 2023 02:40 PM PREVENTIVE MEDICIN E NURSING NOTE: LOCAL TITLE: CLINICAL REMINDERS/NURSING STANDARD TITLE: PREVENTIVE MEDICINE NURSING NOTE DATE OF NOTE: FEB 18, 2023@14:40 ENTRY DATE: FEB 18, 2023@14:40:12 AUTHOR: MAXIMO HOFFMAN COSIGNER: URGENCY: STATUS: COMPLETED CONTACTED AND REMINDED OF UPCOMING APPT, AND THE NEED FOR FASTING LABS PRIOR TO APPT. Homelessness/Food Insecurity Screen: In the past 2 months, have you been living in stable housing that you own, rent, or stay in as part of a household? Yes - Living in stable housing. Are you worried or concerned that in the next 2 months you may NOT have stable housing that you own, rent, or stay in as part of a household? No - Not worried about housing near future The reports the following: Within the past 12 months, you worried whether your food would run out before you got money to buy more. Never true Within the past 12 months, the food you bought just didn't last and you didn't have money to get more. Never true Tobacco Use Screening: The patient is a former tobacco user. The patient quit fifteen or more years ago. Alcohol Use Screen (AUDIT-C): Alcohol Screen: SCREEN FOR ALCOHOL (AUDIT-C) An alcohol screening test (AUDIT-C) was negative (score=0). 1. How often did you have a drink containing alcohol in the past year? Never 2. How many drinks containing alcohol did you have on a typical day when you were drinking in the past year? Response not required due to responses to other questions. 3. How often did you have six or more drinks on one occasion in the past year? Response not required due to responses to other questions. Sexual Orientation: The patient thinks of their sexual orientation as: Straight or Heterosexual Suicide Screen: C-SSRS Screening [place] Suicide Severity Rating Scale (C-SSRS) screener 1. Over the past month, have you wished you were or wished you could go to sleep and not wake up? No 2. Over the past month, have you had any actual thoughts of killing yourself? No 3. Over the past month, have you been thinking about how you might do this? Response not required due to responses to other questions. 4. Over the past month, have you had these thoughts and had some intention of acting on them? Response not required due to responses to other questions. 5. Over the past month, have you started to work out or worked out the details of how to kill yourself? Response not required due to responses to other questions. 6. If yes, at any time in the past month did you intend to carry out this plan? Response not required due to responses to other questions. 7. In your lifetime, have you ever done anything, started to do anything, or prepared to do anything to end your life (for example, collected pills, obtained a gun, gave away valuables, went to the roof but didn't jump)? No 8. If YES, was this within the past 3 months? Response not required due to responses to other questions. BMI>30/>24.99 High Risk: At this visit, the health risks of obesity were reviewed and discussed with the , and the benefits of a weight management treatment program, such as [facility]! was discussed and offered to the [place]. After discussing the health risks of being overweight or obese and providing information about available weight management treatment, and offering a referral to [facility] or another weight management treatment program outside [facility], the patient DECLINES REFERRAL to [facility] or any other weight management treatment program at this time. Depression Screening: Perform PHQ-2 A PHQ-2 screen was performed. The score was 0 which is a negative screen for depression. Over the past two weeks, how often have you been bothered by the following problems? 1. Little interest or pleasure in doing things Not at all 2. Feeling down, depressed, or hopeless Not at all /bashir HOFFMAN LPN LPN Signed: 02/18/2023 14:42 MAXIMO HOFFMAN Feb 18, 2023 02:33 PM MEDICATION MGT NOT E: LOCAL TITLE: OUTPATIENT MEDICATION REQUEST STANDARD TITLE: MEDICATION MGT NOTE DATE OF NOTE: FEB 18, 2023@14:33 ENTRY DATE: FEB 18, 2023@14:33:46 AUTHOR: MAXIMO HOFFMAN EXP COSIGNER: URGENCY: STATUS: COMPLETED Medication Request Date of Request: Feb Is this a New Medication? No PLEASE RENEW AND MAIL 3) BACLOFEN 10MG TAB TAKE ONE TABLET BY MOUTH THREE ACTIVE TIMES A DAY FOR MUSCLE RIGIDITY (REPLACES CYCLOBENZAPRINE) VITAMIN D3 (CHOLECALCIFEROL) TAB 25MCG TAKE ONE TABLET BY MOUTH ONCE DAILY FOR VITAMIN SUPPLEMENTATION Quantity: 90 Refills: 3 /bienvenido/ MAXIMO HOFFMAN LPN LPN Signed: 02/18/2023 14:35 Receipt Acknowledged By: 02/18/2023 14:42 /bienvenido/ RADHA DELVALLE PA-C STAFF PHYSICIAN CARDIOVASCULAR LAB DIRECTOR for MAXIMO LAZARO RIGO Feb 18, 2023 02:31 PM MEDICATION MGT NOT E: LOCAL TITLE: OUTPATIENT MEDICATION REQUEST STANDARD TITLE: MEDICATION MGT NOTE DATE OF NOTE: FEB 18, 2023@14:31 ENTRY DATE: FEB 18, 2023@14:31:23 AUTHOR: MAXIMO HOFFMAN EXP COSIGNER: URGENCY: STATUS: COMPLETED Medication Request Date of Request: Feb Is this a New Medication? No PLEASE RENEW AND MAIL 7) LEVOTHYROXINE NA (SYNTHROID) 100MCG TAB TAKE TWO ACTIVE TABLETS BY MOUTH FRI, FRI, FRI, FRI, FRI, & SAT AND TAKE ONE TABLET ON FRIDAY FOR THYROID - TAKE ON AN EMPTY STOMACH WITH A FULL GLASS OF WATER /bienvenido/ MAXIMO HOFFMAN LPN LPN Signed: 02/18/2023 14:31 Receipt Acknowledged By: 02/18/2023 14:33 /bienvenido/ RADHA DELVALLE PA-C STAFF PHYSICIAN CARDIOVASCULAR LAB DIRECTOR for MAXIMO LAZARO
--- OUTSIDE RECORDS SUMMARY | 2024-02-17 09:29 | XMS_ITS | Encounter Summary ---
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 Organization [place] Address [address] [place] [address] Care Team Providers Care Irrigation Equipment Remover Name Role Phone LEV OCONNELL Primary Care [...] (PPO) FED EMPLO [facility] Jan 26, 2020 [id number] [phone] ELIZABETH SMILEY JR PATIENT [employer] PREFERRED PROVIDER ORGANIZAT ION (PPO) DWAYNE AL EMPL [facility] Feb 25, 2016 [id number] ELIZABETH SMILEY JR PATIENT [employer] PREFERRED PROVIDER ORGANIZAT ION (PPO) DWAYNE AL EMPL [facility] Feb 25, 2016 [id number] ELIZABETH SMILEY PATIENT [employer] PREFERRED PROVIDER ORGANIZAT ION (PPO) DWAYNE AL EMPLO YE Feb 25, 2016 [id number] ELIZABETH SMILEY JR PATIENT [employer] PREFERRED PROVIDER ORGANIZAT ION (PPO) DWAYNE MORALESO MIMI [place] Feb 24, 2016 [id number] ELIZABETH SMILEY PATIENT [employer] PHARMACY MANAGEMENT PRESCRIPT ION DWAYNE AL D[place] Jan 26, 2020 [id number] ELIZABETH SMILEY JR PATIENT [employer] PHARMACY MANAGEMENT PRESCRIPT ION DWAYNE MORALESO MIMI Feb 25, 2016 [id number] ELIZABETH SMILEY PATIENT [employer] PHARMACY MANAGEMENT PRESCRIPT ION DAIANA Feb 25, 2016 [id number] ELIZABETH SMILEY PATIENT AET[employer] RX PRESCRIPT ION DWAYNE AL MIO MIMI [place]OO[place] Feb 25, 2016 [id number] ELIZABETH SMILEY PATIENT AETNA RX PRESCRIPT ION [facility] Feb 25, 2016 [id number] ELIZABETH SMILEY JR PATIENT [employer] POINT OF SERVICE TYCO Mar 20, 2002 [id number] ELIZABETH SMILEY PATIENT [employer]* POINT OF SERVICE Mar 20, 2002 [id number] ELIZABETH SMILEY PATIENT Selected Encounter This section includes the information on record at [place] for the Encounter. Date/Time Encounter Type Encounter Description Reason Pro vider Source Feb 18, 2023 01:50 PM Outpatient Encounter PRIMARY CARE/MEDICINE IHE Encounter Template Text not used by [place] Plan of Treatment: Future Appointments (+ 6 months) and Future Tests (+/- 45 days) The Plan of Treatment section includes future care activities for the patient from all [place] treatmentfacilities. This section includes future appointments and future orders which are active, pending or scheduled. Future Appointments This section includes appointments that were scheduled to occur 6 months from the date of the Encounter, up to a maximum of 20 appointments. The data comes from all [place] treatment facilities. Appointment Date/Time Appointment Type Appointme nt Facility Name Mar 06, 2023 09:00 AM AMBULATORY - MEDICINE [facility] Mar 11, 2023 02:00 PM AMBULATORY - PSYCHIATRY [facility] Mar 19, 2023 01:30 PM AMBULATORY - PSYCHIATRY [facility] May 30, 2023 08:00 AM AMBULATORY - MEDICINE [facility] May 30, 2023 08:15 AM [facility] Jun 04, 2023 04:00 PM AMBULATORY - MEDICINE [place] [facility] June 24, 2023 03:00 PM AMBULATORY - NONE [place] [facility] [place] [facility] Aug 08, 2023 03:00 PM AMBULATORY - MEDICINE [place] [facility] Aug 13, 2023 03:10 PM AMBULATORY - MEDICINE [place] [facility] Lab Results: +/- 30 days of the encounter This section includes the Chemistry and Hematology Lab Results on record with [place] for the patient. Radiology Reports and Pathology Reports are provided separately, in subsequent sections. Lab Results This section contains the Chemistry/Hematology Results that were resulted 30 days before or 30 daysafter the date of the Encounter. Date/Time Source Result Type Result - Unit Interpretation Reference Range Comment Feb 21, 2023 07:49 AM [facility] BASIC METABOLIC PANEL (fasting) Specime n Type: SERUM No comment entered. Ordering Provider: LEV LIZAMA Report Released Date/Time: Feb 18, 2023 02:37 PM Reporting Lab: [facility] [address] [address] Performing Lab: [address] [address] UREA NITROGEN 47 mg/dL H 7-25 GLUCOSE 155 mg/dL H 65-100 SODIUM 140 mmol/L 135-145 POTASSIUM 4.8 mmol/L 3.5-5.0 CHLORIDE 106 mmol/L 100-110 CO2 26 meq/L 20-30 CREATININE, Serum 2.19 mg/dL H 0.50-1.40 eGFR(CKD-EPI 2020) 33 mL/min L >60 Feb 21, 2023 07:49 AM [facility] HEMOGLOBIN A1C PANEL Specimen Type: BLOOD Comment: [...] Feb 18, 2023 02:37 PM Reporting Lab: [address] [address] Performing Lab: [address] [address] HEMOGLOBIN A1C 7.0 H 4.0-5.6 Feb 21, 2023 07:49 AM [facility] LIPID PANEL FASTING Specimen Type: SERUM No comment entered. Ordering Provider: LEV LIZAMA Report Released Date/Time: Feb 18, 2023 02:37 PM Reporting Lab: [address] [address] Performing Lab: [address] [address] CHOLESTEROL 181 mg/dL TRIGLYCERIDE 244 mg/dL H 0-150 LDL calculated 105 mg/dL 0-129 CHOL/HDL 6.7 HDL CHOLESTEROL 27 mg/dL L 40-60 Feb 21, 2023 07:49 AM [facility] LIVER FUNCTION Specimen Type: SERUM No comment entered. Ordering Provider: LEV LIZAMA Report Released Date/Time: Feb 18, 2023 02:37 PM Reporting Lab: [address] [address] Performing Lab: [address] [address] PROTEIN,TOTAL 6.1 g/dL 6.0-8.3 ALBUMIN 3.8 g/dL 3.5-5.0 ALKALINE PHOSPHATASE 49 U/L 40-150 AST 10 U/L 5-34 ALT 15 U/L BILIRUBIN, TOTAL 0.3 mg/dL 0.2-1.2 Feb 21, 2023 07:49 AM [facility]ENCY TSH Specimen Type: SERUM No comment entered. Ordering Provider: LEV LIZAMA Report Released Date/Time: Feb 18, 2023 02:37 PM Reporting Lab: [facility] [address] [address] Performing Lab: [facility] [address] [address] TSH 0.69 u[IU]/mL 0.35-5.00 Feb 21, 2023 07:49 AM AGENCY CBC AND DIFF (AUTO) Specimen Type: BLOOD No comment entered. Ordering Provider: LEV LIZAMA Report Released Date/Time: Feb 18, 2023 02:37 PM Reporting Lab: [facility] [address] [address] Performing Lab: [facility] [address] [address] WBC 6.00 10*3/uL 4.50-11.00 RBC 4.32 10*6/uL 4.23-5.66 HGB 12.8 g/dL 12.8-17 HCT 38.8 L 39.2-50.4 MCV 89.8 fL 82-99 MCHC 33.0 g/dL 30.8-35.1 PLT 222 10*3/uL 140-360 RDW-CV 12.4 12.0-16.0 [place], Abs 0.56 10*3/uL 0.30-1.10 MCH 29.6 pg 26.2-32.6 Neut % 70.5 43.7-75.8 Lymph % 16.2 14.0-42.3 [place] % 9.3 5.1-13.7 Eos % 3.2 0.4-6.8 [...] and tobacco- related health factors from the [place] facility where the Encounter took place. Current Smoking Status This section includes the most current smoking, or tobacco-related health factor, from the [place] facility where the Encounter took place. Date/Time Current Smoking Status Comment Corina ity Feb 18, 2023 02:31 PM VA-TOBACCO FORMER USER [facility] Tobacco Use History This section includes a history of the smoking, or tobacco-related health factors, that were collected on or before the date of the Encounter. The data comes from the [place] facility where the Encounter took place. Date/Time Smoking Status/Tobacco Use Comment F acroger Feb 18, 2023 02:31 PM VA-TOBACCO QUIT 15 YRS OR MORE [facility] Dec 31, 2021 01:00 PM VA-TOBACCO FORMER USER [facility] Dec 31, 2021 01:00 PM [place]-TOBACCO QUIT 15 YRS OR MORE [facility] Advance Directives: All historical and current Section Date Range: From patient's date of to the date document was created. This section includes ALL of a patient's completed or amended [place] Advance and Rescinded Directives. The entries below indicate that a directive exists for the patient, but an actual copy is not included with this document. The data comes from all [place] facilities. Date Advance Directives Provider Source July 02, 2022 ADVANCE DIRECTIVE SANDRA BROOKS [facility] Aug 07, 2021 ADVANCE DIRECTIVE RADHA SAHA [facility] Nov 28, 2020 ADVANCE DIRECTIVE GOLDIE DUTTA [facility] Encounter Notes: All associated encounter notes This section contains the clinical notes associated to the Encounter. Date/Time Encounter Note(s) Provider Source Feb 18, 2023 01:50 PM PRIMARY CARE SECUR E MESSAGING: LOCAL TITLE: PRIMARY CARE SECURE MESSAGING STANDARD TITLE: PRIMARY CARE SECURE MESSAGING DATE OF NOTE: FEB 18, 2023@13:50 ENTRY DATE: FEB 18, 2023@13:50:20 AUTHOR: AMARIS GUAN COSIGNER: URGENCY: STATUS: COMPLETED PRIMARY CARE SECURE MESSAGING Has ADDENDA ------Original Message ----- Sent: 02/18/2023 01:40 PM ET From: ELIZABETH SMILEY To: ANISH,O_PRIM MARY [facility]ANE [facility] Subject: Test:Labs prior to next visit Can you let me know if there is a lab slip for me to have done prior to seeing Dr Gerber on Mar 06? /bienvenido/ AMARIS GUAN ADVANCED PAUNCH TRIMMER Signed: 02/18/2023 13:50 Receipt Acknowledged By: 02/20/2023 09:19 /bienvenido/ KATRINA MURPHYN RN-BC REGISTERED NURSE for JC GARCIA 02/18/2023 14:39 /bienvenido/ MAXIMO HOFFMAN LPN LPN 02/18/2023 ADDENDUM STATUS: COMPLETED LABS ENTERED AND CONTACTED AND MADE AWARE. /bashir HOFFMAN LPN LPN Signed: 02/18/2023 14:42 AMARIS GUAN [place] [facility]
--- OUTSIDE RECORDS SUMMARY | 2024-02-17 09:29 | XMS_ITS ---
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 [place] Organization [facility] [place] [place] Address [address] [place] [address] Care Team Providers Care Tie Tape Machine Operator Name Role Phone LEV OCONNELL Primary Care [...] (PPO) FED EMPLO YEES Jan 26, 2020 [id number] ELIZABETH SMILEY JR PATIENT [employer] PREFERRED PROVIDER ORGANIZAT ION (PPO) DWAYNE AL EMPL [facility] Feb 25, 2016 [id number] ELIZABETH SMILEY JR PATIENT [employer] PREFERRED PROVIDER ORGANIZAT ION (PPO) DWAYNE AL EMPL [facility] Feb 25, 2016 [id number] ELIZABETH SMILEY PATIENT [employer] PREFERRED PROVIDER ORGANIZAT ION (PPO) DWAYNE AL EMPLO YE Feb 25, 2016 [id number] BALJITELIZABETH SCANLON JR PATIENT [employer] PREFERRED PROVIDER ORGANIZAT ION (PPO) DWAYNE SILVA Feb 24, 2016 [id number] ELIZABETH SMILEY PATIENT [employer] PHARMACY MANAGEMENT PRESCRIPT ION DWAYNE SILVA Jan 26, 2020 [id number] ELIZABETH SMILEY JR PATIENT [employer] PHARMACY MANAGEMENT PRESCRIPT ION DAIANA Feb 25, 2016 [id number] ELIZABETH SMILEY PATIENT [employer] PHARMACY MANAGEMENT PRESCRIPT ION DWAYNE AL MIO MIMI Feb 25, 2016 [id number] ELIZABETH SMILEY PATIENT AET[employer] RX PRESCRIPT ION DWAYNE MORALESO MIMI COOLEY Feb 25, 2016 [id number] ELIZABETH SMILEY PATIENT AET[employer] RX PRESCRIPT ION FEP Feb 25, 2016 [id number] ELIZABETH SMILEY JR PATIENT [employer] POINT OF SERVICE TYCO Mar 20, 2002 [id number] ELIZABETH SMILEY PATIENT [employer]* POINT OF SERVICE Mar 20, 2002 [id number] ELIZABETH SMILEY PATIENT Selected Encounter This section includes the information on record at [place] for the Encounter. Date/Time Encounter Type Encounter Description Reason Pro vider Source Mar 06, 2023 09:00 AM Outpatient Encounter PRIMARY CARE/MEDICINE IHE Encounter Template Text not used by [place] Plan of Treatment: Future Appointments (+ 6 months) and Future Tests (+/- 45 days) The Plan of Treatment section includes future care activities for the patient from all [place] treatmentfacilities. This section includes future appointments and future orders which are active, pending or scheduled. Future Appointments This section includes appointments that were scheduled to occur 6 months from the date of the Encounter, up to a maximum of 20 appointments. The data comes from all [place] treatment facilities. Appointment Date/Time Appointment Type Appointme nt Facility Name Mar 11, 2023 02:00 PM AMBULATORY - PSYCHIATRY [facility] Mar 19, 2023 01:30 PM AMBULATORY - [facility]ATRY [facility] May 30, 2023 08:00 AM AMBULATORY - MEDICINE [facility] May 30, 2023 08:15 AM [facility] Jun 04, 2023 04:00 PM AMBULATORY [place]ICINE [place] [facility] [place] [facility] June 24, 2023 03:00 PM [facility] Aug 08, 2023 03:00 PM AMBULATORY - MEDICINE [place] [facility] [place] [place] [facility] Aug 13, 2023 03:10 PM AMBULATORY - MEDICINE [place] [facility] [place] [facility] Sep 04, 2023 01:30 PM AMBULATORY - MEDICINE [facility] Lab Results: +/- 30 days of the encounter This section includes the Chemistry and Hematology Lab Results on record with [place] for the patient. Radiology Reports and Pathology Reports are provided separately, in subsequent sections. Lab Results This section contains the Chemistry/Hematology Results that were resulted 30 days before or 30 daysafter the date of the Encounter. Date/Time Source Result Type Result - Unit Interpretation Reference Range Comment Feb 21, 2023 07:49 AM [facility] BASIC METABOLIC PANEL (fasting) Specime n Type: SERUM No comment entered. Ordering Provider: LEV LIZAMA Report Released Date/Time: Feb 18, 2023 02:37 PM Reporting Lab: [address] [address] Performing Lab: [address] [address] UREA NITROGEN 47 mg/dL H 7-25 GLUCOSE 155 mg/dL H 65-100 SODIUM 140 mmol/L 135-145 POTASSIUM 4.8 mmol/L 3.5-5.0 CHLORIDE 106 mmol/L 100-110 CO2 26 meq/L 20-30 CREATININE, Serum 2.19 mg/dL H 0.50-1.40 eGFR(CKD-EPI 2020) 33 mL/min L >60 Feb 21, 2023 07:49 AM [facility] HEMOGLOBIN A1C PANEL Specimen Type: BLOOD Comment: [...] Feb 18, 2023 02:37 PM Reporting Lab: [address] [address] Performing Lab: [address] [address] HEMOGLOBIN A1C 7.0 H 4.0-5.6 Feb 21, 2023 07:49 AM [facility] LIPID PANEL FASTING Specimen Type: SERUM No comment entered. Ordering Provider: LEV LIZAMA Report Released Date/Time: Feb 18, 2023 02:37 PM Reporting Lab: [address] [address] Performing Lab: [address] [address] CHOLESTEROL 181 mg/dL TRIGLYCERIDE 244 mg/dL H 0-150 LDL calculated 105 mg/dL 0-129 CHOL/HDL 6.7 HDL CHOLESTEROL 27 mg/dL L 40-60 Feb 21, 2023 07:49 AM [facility] LIVER FUNCTION Specimen Type: SERUM No comment entered. Ordering Provider: LEV LIZAMA Report Released Date/Time: Feb 18, 2023 02:37 PM Reporting Lab: [address] [address] Performing Lab: [address] [address] PROTEIN,TOTAL 6.1 g/dL 6.0-8.3 ALBUMIN 3.8 g/dL 3.5-5.0 ALKALINE PHOSPHATASE 49 U/L 40-150 AST 10 U/L 5-34 ALT 15 U/L BILIRUBIN, TOTAL 0.3 mg/dL 0.2-1.2 Feb 21, 2023 07:49 AM [facility] TSH Specimen Type: SERUM No comment entered. Ordering Provider: LEV LIZAMA Report Released Date/Time: Feb 18, 2023 02:37 PM Reporting Lab: [facility] [address] [facility] [address] Performing Lab: [facility] [address] [address] TSH 0.69 u[IU]/mL 0.35-5.00 Feb 21, 2023 07:49 AM [facility] CBC AND DIFF (AUTO) Specimen Type: BLOOD No comment entered. Ordering Provider: LEV LIZAMA Report Released Date/Time: Feb 18, 2023 02:37 PM Reporting Lab: [facility] [address] [address] Performing Lab: [facility] [address] [address] WBC 6.00 10*3/uL 4.50-11.00 RBC 4.32 10*6/uL 4.23-5.66 HGB 12.8 g/dL 12.8-17 HCT 38.8 L 39.2-50.4 MCV 89.8 fL 82-99 MCHC 33.0 g/dL 30.8-35.1 PLT 222 10*3/uL 140-360 RDW-CV 12.4 12.0-16.0 [place], Abs 0.56 10*3/uL 0.30-1.10 MCH 29.6 pg 26.2-32.6 Neut % 70.5 43.7-75.8 Lymph % 16.2 14.0-42.3 [place] % 9.3 5.1-13.7 Eos % 3.2 0.4-6.8 [...] and tobacco- related health factors from the [place] facility where the Encounter took place. Current Smoking Status This section includes the most current smoking, or tobacco-related health factor, from the [place] facility where the Encounter took place. Date/Time Current Smoking Status Comment Corina ity Feb 18, 2023 02:31 PM HI-TOBACCO QUIT 15 YRS OR MORE [facility] Tobacco Use History This section includes a history of the smoking, or tobacco-related health factors, that were collected on or before the date of the Encounter. The data comes from the [place] facility where the Encounter took place. Date/Time Smoking Status/Tobacco Use Comment F acroger Feb 18, 2023 02:31 PM HI-TOBACCO QUIT 15 YRS OR MORE [facility] Dec 31, 2021 01:00 PM VA-TOBACCO FORMER USER [facility] Dec 31, 2021 01:00 PM HI-TOBACCO QUIT 15 YRS OR MORE [facility] Advance Directives: All historical and current Section Date Range: From patient's date of to the date document was created. This section includes ALL of a patient's completed or amended [place] Advance and Rescinded Directives. The entries below indicate that a directive exists for the patient, but an actual copy is not included with this document. The data comes from all [place] facilities. Date Advance Directives Provider Source July 02, 2022 ADVANCE DIRECTIVE SANDRA BROOKS [facility] Aug 07, 2021 ADVANCE DIRECTIVE RADHA SAHA [facility] Nov 28, 2020 ADVANCE DIRECTIVE GOLDIE DUTTA [facility] Encounter Notes: All associated encounter notes This section contains the clinical notes associated to the Encounter. Date/Time Encounter Note(s) Provider Source Mar 06, 2023 09:13 AM PREVENTIVE MEDICIN E NURSING NOTE: LOCAL TITLE: CLINICAL REMINDERS/NURSING STANDARD TITLE: PREVENTIVE MEDICINE NURSING NOTE DATE OF NOTE: MAR 06, 2023@09:13 ENTRY DATE: MAR 06, 2023@09:13:37 AUTHOR: MAXIMO HOFFMAN EXP COSIGNER: URGENCY: STATUS: COMPLETED CLINICAL REMINDERS/NURSING Has ADDENDA COVID-19 Immunization: Refused Pfizer Monovalent COVID-19 vaccine Immunization: COVID-19 (PFIZER), MRNA, LNP-S, PF, JERMAINE-SUCROSE, 30 MCG/0.3 ML (AGES 12+ YEARS) Refusal Reason: PATIENT DECISION Patient refuses all immunization(s) in the COVID-19 group Date Documented: 03/06/23 09:15 COVID-19 Immunization: Refused Moderna Monovalent COVID-19 vaccine Immunization: COVID-19 (MODERNA), MRNA, LNP-S, PF, 50 MCG/0.5 ML (AGES 12+ YEARS) Refusal Reason: PATIENT DECISION Patient refuses all immunization(s) in the COVID-19 group Date Documented: 03/06/23 09:16 FOOT CHECK - [facility] - DR. JONES PLEASE REQUEST MOST RECENT FOOT EXAM /bienvenido/ MAXIMO HOFFMAN LPN LPN Signed: 03/06/2023 09:17 Receipt Acknowledged By: 03/06/2023 14:48 /bienvenido/ EDUARDO MENESES 03/06/2023 ADDENDUM STATUS: COMPLETED [employer] requested records. /bienvenido/ EDUARDO MENESES Signed: 03/06/2023 14:49 MAXIMO HOFFMAN
--- OUTSIDE RECORDS SUMMARY | 2024-02-17 09:29 | XMS_ITS | Encounter Summary ---
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 [place] Organization [facility] [place] Address [address] [place] [address] Care Team Providers Care Manager Advanced Name Role Phone LEV OCONNELL Primary Care [...] (PPO) FED EMPLO YEES Jan 26, 2020 [id number] ELIZABETH SMILEY JR PATIENT [employer] PREFERRED PROVIDER ORGANIZAT ION (PPO) DWAYNE AL EMPL [facility] Feb 25, 2016 [id number] [phone] ELIZABETH SMILEY JR PATIENT [employer] PREFERRED PROVIDER ORGANIZAT ION (PPO) DWAYNE AL EMPL [facility] Feb 25, 2016 [id number] ELIZABETH SMILEY PATIENT [employer] PREFERRED PROVIDER ORGANIZAT ION (PPO) DWAYNE AL EMPLO YE Feb 25, 2016 [id number] ELIZABETH SMILEY JR PATIENT [employer] PREFERRED PROVIDER ORGANIZAT ION (PPO) DWAYNE MORALESO MIMI COOLEY Feb 24, 2016 [id number] ELIZABETH SMILEY PATIENT [employer] PHARMACY MANAGEMENT PRESCRIPT ION DWAYNE AL DEEP COOLEY Jan 26, 2020 [id number] ELIZABETH SMILEY JR PATIENT [employer] PHARMACY MANAGEMENT PRESCRIPT ION DWAYNE MORALESO MIMI Feb 25, 2016 [id number] ELIZABETH SMILYE PATIENT [employer] PHARMACY MANAGEMENT PRESCRIPT ION DAIANA Feb 25, 2016 [id number] ELIZABETH SMILEY PATIENT [employer] RX PRESCRIPT ION DWYANE AL MIO MIMI COOLEY Feb 25, 2016 [id number] ELIZABETH SMILEY PATIENT AETNA RX PRESCRIPT ION [facility] Feb 25, 2016 [id number] ELIZABETH SMILEY JR PATIENT [employer] POINT OF SERVICE T[employer]CO Mar 20, 2002 [id number] ELIZABETH SMILEY PATIENT [employer]* POINT OF SERVICE Mar 20, 2002 [id number] ELIZABETH SMILEY PATIENT Selected Encounter This section includes the information on record at [place] for the Encounter. Date/Time Encounter Type Encounter Description Reason Pro vider Source Feb 18, 2023 02:05 PM Outpatient Encounter PRIMARY CARE/MEDICINE IHE Encounter Template Text not used by [place] Plan of Treatment: Future Appointments (+ 6 months) and Future Tests (+/- 45 days) The Plan of Treatment section includes future care activities for the patient from all [place] treatmentfacilities. This section includes future appointments and future orders which are active, pending or scheduled. Future Appointments This section includes appointments that were scheduled to occur 6 months from the date of the Encounter, up to a maximum of 20 appointments. The data comes from all [place] treatment facilities. Appointment Date/Time Appointment Type Appointme nt Facility Name Mar 06, 2023 09:00 AM AMBULATORY - MEDICINE [facility] Mar 11, 2023 02:00 PM AMBULATORY - PSYCHIATRY [facility] Mar 19, 2023 01:30 PM AMBULATORY - PSYCHIATRY [facility] May 30, 2023 08:00 AM AMBULATORY - MEDICINE [facility] May 30, 2023 08:15 AM [facility] Jun 04, 2023 04:00 PM AMBULATORY - MEDICINE [place] [facility] June 24, 2023 03:00 PM AMBULATORY - NONE [place] [facility] [place] [facility] Aug 08, 2023 03:00 PM AMBULATORY - MEDICINE [place] [facility] Aug 13, 2023 03:10 PM AMBULATORY - MEDICINE [place] [facility] [place] [facility] Lab Results: +/- 30 days of the encounter This section includes the Chemistry and Hematology Lab Results on record with [place] for the patient. Radiology Reports and Pathology Reports are provided separately, in subsequent sections. Lab Results This section contains the Chemistry/Hematology Results that were resulted 30 days before or 30 daysafter the date of the Encounter. Date/Time Source Result Type Result - Unit Interpretation Reference Range Comment Feb 21, 2023 07:49 AM [facility] BASIC METABOLIC PANEL (fasting) Specime n Type: SERUM No comment entered. Ordering Provider: LEV LIZAMA Report Released Date/Time: Feb 18, 2023 02:37 PM Reporting Lab: [facility] [address] [facility] [facility] [address] Performing Lab: [address] [address] UREA NITROGEN 47 mg/dL H 7-25 GLUCOSE 155 mg/dL H 65-100 SODIUM 140 mmol/L 135-145 POTASSIUM 4.8 mmol/L 3.5-5.0 CHLORIDE 106 mmol/L 100-110 CO2 26 meq/L 20-30 CREATININE, Serum 2.19 mg/dL H 0.50-1.40 eGFR(CKD-EPI 2020) 33 mL/min L >60 Feb 21, 2023 07:49 AM [facility] HEMOGLOBIN A1C PANEL Specimen Type: BLOOD Comment: [...] Feb 18, 2023 02:37 PM Reporting Lab: [address] [address] Performing Lab: [address] [address] HEMOGLOBIN A1C 7.0 H 4.0-5.6 Feb 21, 2023 07:49 AM [facility] LIPID PANEL FASTING Specimen Type: SERUM No comment entered. Ordering Provider: LEV LIZAMA Report Released Date/Time: Feb 18, 2023 02:37 PM Reporting Lab: [address] [address] Performing Lab: [address] [address] CHOLESTEROL 181 mg/dL TRIGLYCERIDE 244 mg/dL H 0-150 LDL calculated 105 mg/dL 0-129 CHOL/HDL 6.7 HDL CHOLESTEROL 27 mg/dL L 40-60 Feb 21, 2023 07:49 AM [facility] LIVER FUNCTION Specimen Type: SERUM No comment entered. Ordering Provider: LEV LIZAMA Report Released Date/Time: Feb 18, 2023 02:37 PM Reporting Lab: [address] [address] Performing Lab: [address] [address] PROTEIN,TOTAL 6.1 g/dL 6.0-8.3 ALBUMIN 3.8 g/dL 3.5-5.0 ALKALINE PHOSPHATASE 49 U/L 40-150 AST 10 U/L 5-34 ALT 15 U/L BILIRUBIN, TOTAL 0.3 mg/dL 0.2-1.2 Feb 21, 2023 07:49 AM [facility] TSH Specimen Type: SERUM No comment entered. Ordering Provider: LEV LIZAMA Report Released Date/Time: Feb 18, 2023 02:37 PM Reporting Lab: [facility] [address] [facility] [address] Performing Lab: [facility] [address] [address] TSH 0.69 u[IU]/mL 0.35-5.00 Feb 21, 2023 07:49 AM [facility] CBC AND DIFF (AUTO) Specimen Type: BLOOD No comment entered. Ordering Provider: LEV LIZAMA Report Released Date/Time: Feb 18, 2023 02:37 PM Reporting Lab: [facility] [address] [address] Performing Lab: [facility] [address] [address] WBC 6.00 10*3/uL 4.50-11.00 RBC 4.32 10*6/uL 4.23-5.66 HGB 12.8 g/dL 12.8-17 HCT 38.8 L 39.2-50.4 MCV 89.8 fL 82-99 MCHC 33.0 g/dL 30.8-35.1 PLT 222 10*3/uL 140-360 RDW-CV 12.4 12.0-16.0 [place], Abs 0.56 10*3/uL 0.30-1.10 MCH 29.6 pg 26.2-32.6 Neut % 70.5 43.7-75.8 Lymph % 16.2 14.0-42.3 [place] % 9.3 5.1-13.7 Eos % 3.2 0.4-6.8 [...] and tobacco- related health factors from the [place] facility where the Encounter took place. Current Smoking Status This section includes the most current smoking, or tobacco-related health factor, from the [place] facility where the Encounter took place. Date/Time Current Smoking Status Comment Corina alvares Feb 18, 2023 02:31 PM VA-TOBACCO FORMER USER [facility] Tobacco Use History This section includes a history of the smoking, or tobacco-related health factors, that were collected on or before the date of the Encounter. The data comes from the [place] facility where the Encounter took place. Date/Time Smoking Status/Tobacco Use Comment Dafne acroger Feb 18, 2023 02:31 PM VA-TOBACCO QUIT 15 YRS OR MORE [facility] Dec 31, 2021 01:00 PM VA-TOBACCO FORMER USER [facility] Dec 31, 2021 01:00 PM [place]-TOBACCO QUIT 15 YRS OR MORE [facility] Advance Directives: All historical and current Section Date Range: From patient's date of to the date document was created. This section includes ALL of a patient's completed or amended [place] Advance and Rescinded Directives. The entries below indicate that a directive exists for the patient, but an actual copy is not included with this document. The data comes from all [place] facilities. Date Advance Directives Provider Source July 02, 2022 ADVANCE DIRECTIVE SANDRA BROOKS [facility] Aug 07, 2021 ADVANCE DIRECTIVE RADHA SAHA [facility] Nov 28, 2020 ADVANCE DIRECTIVE GOLDIE DUTTA [facility] Encounter Notes: All associated encounter notes This section contains the clinical notes associated to the Encounter. Date/Time Encounter Note(s) Provider Source Feb 18, 2023 02:05 PM PRIMARY CARE SECUR E MESSAGING: LOCAL TITLE: PRIMARY CARE SECURE MESSAGING STANDARD TITLE: PRIMARY CARE SECURE MESSAGING DATE OF NOTE: FEB 18, 2023@14:05 ENTRY DATE: FEB 18, 2023@14:05:41 AUTHOR: AMARIS GUAN COSIGNER: URGENCY: STATUS: COMPLETED ------Original Message ----- Sent: 02/18/2023 01:44 PM ET From: ELIZABETH SMILEY To: PREM OCONNELL [facility] Subject: Medication:Levothyroxine I have no refills available for this medication. Can you please submit. 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
--- OUTSIDE RECORDS SUMMARY | 2024-02-17 09:30 | XMS_ITS | Encounter Summary ---
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 [place] Address [address] [place] [address] Care Team Providers Care Simulation Educator Name Role Phone LEV OCONNELL Primary Care [...] (PPO) FED EMPLO YE Jan 26, 2020 [id number] [phone] ELIZABETH SMILEY JR PATIENT [employer] PREFERRED PROVIDER ORGANIZAT ION (PPO) DWAYNE [place] EMPL [facility] Feb 25, 2016 [id number] ELIZABETH SMILEY JR PATIENT [employer] PREFERRED PROVIDER ORGANIZAT ION (PPO) DWAYNE AL EMPL [facility] Feb 25, 2016 [id number] ELIZABETH SMILEY PATIENT A[employer] PREFERRED PROVIDER ORGANIZAT ION (PPO) DWAYNE AL EMPLO YE Feb 25, 2016 [id number] ELIZABETH SMILEY JR PATIENT A[employer] PREFERRED PROVIDER ORGANIZAT ION (PPO) DWAYNE MORALESO MIMI COOLEY Feb 24, 2016 [id number] ELIZABETH SMILEY PATIENT [employer] PHARMACY MANAGEMENT PRESCRIPT ION DWAYNE AL EMPLO MIMI COOLEY Jan 26, 2020 [id number] ELIZABETH SMILEY JR PATIENT [employer] PHARMACY MANAGEMENT PRESCRIPT ION ALICIAFT Feb 25, 2016 [id number] ELIZABETH SMILEY PATIENT [employer] PHARMACY MANAGEMENT PRESCRIPT ION DWAYNE AL MIO MIMI Feb 25, 2016 [id number] ELIZABETH SMILEY PATIENT AETNA RX PRESCRIPT ION DWAYNE AL EMPLO MIMI COO[place] Feb 25, 2016 [id number] ELIZABETH SMILEY PATIENT AETNA RX PRESCRIPT ION FEHBP Feb 25, 2016 [id number] ELIZABETH BELCHER PATIENT [employer] POINT OF SERVICE TYCO Mar 20, 2002 [id number] ELIZABETH SMLIEY PATIENT [employer]* POINT OF SERVICE Mar 20, 2002 [id number] ELIZABETH SMILEY PATIENT Selected Encounter This section includes the information on record at [place] for the Encounter. Date/Time Encounter Type Encounter Description Reason Pro vider Source Mar 13, 2023 09:58 AM Outpatient Encounter NEUROLOGY IHE Encounter Template Text not used by [place] Plan of Treatment: Future Appointments (+ 6 months) and Future Tests (+/- 45 days) The Plan of Treatment section includes future care activities for the patient from all [place] treatmentfacilities. This section includes future appointments and future orders which are active, pending or scheduled. Future Appointments This section includes appointments that were scheduled to occur 6 months from the date of the Encounter, up to a maximum of 20 appointments. The data comes from all [place] treatment facilities. Appointment Date/Time Appointment Type Appointme nt Facility Name Mar 19, 2023 01:30 PM AMBULATORY - PSYCHIATRY [facility] May 30, 2023 08:00 AM [facility] May 30, 2023 08:15 AM [facility] - MEDICINE [facility] Jun 04, 2023 04:00 PM AMBULATORY [facility] MEDICINE [facility] [place] [facility] June 24, 2023 03:00 PM AMBULATORY - NONE [facility] [place] [facility] Aug 08, 2023 03:00 PM AMBULATORY - MEDICINE [facility] [place] [facility] Aug 13, 2023 03:10 PM AMBULATORY - MEDICINE [facility] [place] [facility] Sep 04, 2023 01:30 PM AMBULATORY - MEDICINE [facility] Lab Results: +/- 30 days of the encounter This section includes the Chemistry and Hematology Lab Results on record with [place] for the patient. Radiology Reports and Pathology Reports are provided separately, in subsequent sections. Lab Results This section contains the Chemistry/Hematology Results that were resulted 30 days before or 30 daysafter the date of the Encounter. Date/Time Source Result Type Result - Unit Interpretation Reference Range Comment Feb 21, 2023 07:49 AM [place] HEMOGLOBIN A1C PANEL Specimen Type: BLOOD Comment: [...] Feb 18, 2023 02:37 PM Reporting Lab: [facility] [place] [address] [address] Performing Lab: [facility] [place] [address] [address] HEMOGLOBIN A1C 7.0 H 4.0-5.6 Feb 21, 2023 07:49 AM [place] LIPID PANEL FASTING Specimen Type: SERUM No comment entered. Ordering Provider: LEV LIZAMA Report Released Date/Time: Feb 18, 2023 02:37 PM Reporting Lab: [facility] [place] [address] [address] Performing Lab: [facility] [address] [facility] [address] CHOLESTEROL 181 mg/dL TRIGLYCERIDE 244 mg/dL H 0-150 LDL calculated 105 mg/dL 0-129 CHOL/HDL 6.7 HDL CHOLESTEROL 27 mg/dL L 40-60 Feb 21, 2023 07:49 AM [place] LIVER FUNCTION Specimen Type: SERUM No comment entered. Ordering Provider: LEV LIZAMA Report Released Date/Time: Feb 18, 2023 02:37 PM Reporting Lab: [address] [address] Performing Lab: [address] [address] PROTEIN,TOTAL 6.1 g/dL 6.0-8.3 ALBUMIN 3.8 g/dL 3.5-5.0 ALKALINE PHOSPHATASE 49 U/L 40-150 AST 10 U/L 5-34 ALT 15 U/L BILIRUBIN, TOTAL 0.3 mg/dL 0.2-1.2 Feb 21, 2023 07:49 AM [place] BASIC METABOLIC PANEL (fasting) Specime n Type: SERUM No comment entered. Ordering Provider: LEV LIZAMA Report Released Date/Time: Feb 18, 2023 02:37 PM Reporting Lab: [address] [address] Performing Lab: [address] [address] UREA NITROGEN 47 mg/dL H 7-25 GLUCOSE 155 mg/dL H 65-100 SODIUM 140 mmol/L 135-145 POTASSIUM 4.8 mmol/L 3.5-5.0 CHLORIDE 106 mmol/L 100-110 CO2 26 meq/L 20-30 CREATININE, Serum 2.19 mg/dL H 0.50-1.40 eGFR(CKD-EPI 2020) 33 mL/min L >60 Feb 21, 2023 07:49 AM [place] TSH Specimen Type: SERUM No comment entered. Ordering Provider: LEV LIZAMA Report Released Date/Time: Feb 18, 2023 02:37 PM Reporting Lab: [facility] [address] [facility] [address] Performing Lab: [facility] [address] [facility] [address] TSH 0.69 u[IU]/mL 0.35-5.00 Feb 21, 2023 07:49 AM [place] CBC AND DIFF (AUTO) Specimen Type: BLOOD No comment entered. Ordering Provider: LEV LIZAMA Report Released Date/Time: Feb 18, 2023 02:37 PM Reporting Lab: [facility] [address] [facility] [address] Performing Lab: [address] [address] WBC 6.00 10*3/uL 4.50-11.00 RBC 4.32 10*6/uL 4.23-5.66 HGB 12.8 g/dL 12.8-17 HCT 38.8 L 39.2-50.4 MCV 89.8 fL 82-99 MCHC 33.0 g/dL 30.8-35.1 PLT 222 10*3/uL 140-360 RDW-CV 12.4 12.0-16.0 Ware, Abs 0.56 10*3/uL 0.30-1.10 MCH 29.6 pg 26.2-32.6 Neut % 70.5 43.7-75.8 Lymph % 16.2 14.0-42.3 Ware % 9.3 5.1-13.7 Eos % 3.2 0.4-6.8 [...] and tobacco- related health factors from the [place] facility where the Encounter took place. Current Smoking Status This section includes the most current smoking, or tobacco-related health factor, from the [place] facility where the Encounter took place. Date/Time Current Smoking Status Comment Corina alvares Feb 18, 2023 02:31 PM [place]-TOBACCO QUIT 15 YRS OR MORE [facility] Tobacco Use History This section includes a history of the smoking, or tobacco-related health factors, that were collected on or before the date of the Encounter. The data comes from the [place] facility where the Encounter took place. Date/Time Smoking Status/Tobacco Use Comment F acility Feb 18, 2023 02:31 PM UT-TOBACCO QUIT 15 YRS OR MORE [facility] Dec 31, 2021 01:00 PM [facility]-TO[facility]ACCO [facility]ER [facility] Dec 31, 2021 01:00 PM [place]-TOBACCO QUIT 15 YRS OR MORE [facility] Advance Directives: All historical and current Section Date Range: From patient's date of to the date document was created. This section includes ALL of a patient's completed or amended [place] Advance and Rescinded Directives. The entries below indicate that a directive exists for the patient, but an actual copy is not included with this document. The data comes from all [place] facilities. Date Advance Directives Provider Source July 02, 2022 ADVANCE DIRECTIVE SANDRA BROOKS [facility] Aug 07, 2021 ADVANCE DIRECTIVE RADHA SAHA [place] [facility] [facility] Nov 28, 2020 ADVANCE DIRECTIVE GOLDIE DUTTA [facility] Encounter Notes: All associated encounter notes This section contains the clinical notes associated to the Encounter. Date/Time Encounter Note(s) Provider Source Mar 13, 2023 09:58 AM ADMINISTRATIVE NOT E: LOCAL TITLE: ADMINISTRATIVE NOTE STANDARD TITLE: ADMINISTRATIVE NOTE DATE OF NOTE: MAR 13, 2023@09:58 ENTRY DATE: MAR 13, 2023@09:58:56 AUTHOR: DIANA HESTER EXP COSIGNER: URGENCY: STATUS: COMPLETED RTC pid [id number] has been dispositioned, no longer needed. 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
--- OUTSIDE RECORDS SUMMARY | 2024-02-17 09:30 | XMS_ITS ---
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 Address [address] [place] [address] Care Team Providers Care Certified Fraud Examiner Name Role Phone LEV OCONNELL Primary Care [...] (PPO) FED EMPLO YEES Jan 26, 2020 [id number] [phone] ELIZABETH SMILEY JR PATIENT [employer] PREFERRED PROVIDER ORGANIZAT ION (PPO) DWAYNE AL EMPL [facility] Feb 25, 2016 [id number] [phone] ELIZABETH SMILEY JR PATIENT AETNA PREFERRED PROVIDER ORGANIZAT ION (PPO) DWAYNE AL EMPL [facility] Feb 25, 2016 [id number] ELIZABETH SMILEY PATIENT A[employer] PREFERRED PROVIDER ORGANIZAT ION (PPO) DWAYNE AL EMPLO YE Feb 25, 2016 [id number] ELIZABETH SMIELY JR PATIENT A[employer] PREFERRED PROVIDER ORGANIZAT ION (PPO) DWAYNE MORALESO MIMI COOLEY Feb 24, 2016 [id number] ELIZABETH SMILEY PATIENT [employer] PHARMACY MANAGEMENT PRESCRIPT ION DWAYNE AL DEEP COOLEY Jan 26, 2020 [id number] ELIZABETH SMILEY JR PATIENT [employer] PHARMACY MANAGEMENT PRESCRIPT ION DWAYNE MORALESO MIMI Feb 25, 2016 [id number] ELIZABETH SMILEY PATIENT [employer] PHARMACY MANAGEMENT PRESCRIPT ION DAIANA Feb 25, 2016 [id number] ELIZABETH SMILEY PATIENT AET[employer] RX PRESCRIPT ION DWAYNE AL MIO MIMI COOLEY Feb 25, 2016 [id number] ELIZABETH SMILEY PATIENT AETNA RX PRESCRIPT ION FEHBP Feb 25, 2016 [id number] ELIZABETH SMILEY JR PATIENT [employer] POINT OF SERVICE TYCO Mar 20, 2002 [id number] ELIZABETH SMILEY PATIENT [employer]IG[employer]* POINT OF SERVICE Mar 20, 2002 [id number] ELIZABETH SMILEY PATIENT Selected Encounter This section includes the information on record at [place] for the Encounter. Date/Time Encounter Type Encounter Description Reason Pro vider Source Apr 22, 2023 01:20 PM Outpatient Encounter PRIMARY CARE/MEDICINE IHE Encounter Template Text not used by [place] Plan of Treatment: Future Appointments (+ 6 months) and Future Tests (+/- 45 days) The Plan of Treatment section includes future care activities for the patient from all [place] treatmentfacilities. This section includes future appointments and future orders which are active, pending or scheduled. Future Appointments This section includes appointments that were scheduled to occur 6 months from the date of the Encounter, up to a maximum of 20 appointments. The data comes from all [place] treatment facilities. Appointment Date/Time Appointment Type Appointme nt Facility Name May 30, 2023 08:00 AM [facility] May 30, 2023 08:15 AM [facility] - MEDICINE [facility] Jun 04, 2023 04:00 PM AMBULATORY - MEDICINE [facility] [place] [facility] June 24, 2023 03:00 PM AMBULATORY - NONE [facility] [place] [facility] Aug 08, 2023 03:00 PM AMBULATORY - MEDICINE [facility] [place] [facility] Aug 13, 2023 03:10 PM AMBULATORY - MEDICINE [facility] [place] [facility] Sep 04, 2023 01:30 PM AMBULATORY - MEDICINE [facility] Sep 29, 2023 02:30 PM AMBULATORY - NONE [place] [facility] [place] [facility] Social History: Smoking Status (Most current) and Tobacco Use (All prior to encounter date) This section includes the most current, and the historical, smoking and tobacco- related health factors from the [place] facility where the Encounter took place. Current Smoking Status This section includes the most current smoking, or tobacco-related health factor, from the [place] facility where the Encounter took place. Date/Time Current Smoking Status Comment Corina ity Feb 18, 2023 02:31 PM [facility] Tobacco Use History This section includes a history of the smoking, or tobacco-related health factors, that were collected on or before the date of the Encounter. The data comes from the [place] facility where the Encounter took place. Date/Time Smoking Status/Tobacco Use Comment F acility Feb 18, 2023 02:31 PM VA-TOBACCO QUIT 15 YRS OR MORE [place] [facility] [place] [place] [facility] Dec 31, 2021 01:00 PM VA-TOBACCO FORMER USER [place] [facility] [facility] Dec 31, 2021 01:00 PM VA-TOBACCO QUIT [facility] YRS [facility] Advance Directives: All historical and current Section Date Range: From patient's date of to the date document was created. This section includes ALL of a patient's completed or amended [place] Advance and Rescinded Directives. The entries below indicate that a directive exists for the patient, but an actual copy is not included with this document. The data comes from all [place] facilities. Date Advance Directives Provider Source July 02, 2022 ADVANCE DIRECTIVE SANDRA BROOKS [place] [place] Aug 07, 2021 ADVANCE DIRECTIVE RADHA SAHA [place] Nov 28, 2020 ADVANCE DIRECTIVE GOLDIE DUTTA [facility] [place] Encounter Notes: All associated encounter notes This section contains the clinical notes associated to the Encounter. Date/Time Encounter Note(s) Provider Source Apr 22, 2023 01:20 PM PRIMARY CARE NOTE: LOCAL TITLE: WALK-IN NOTE PRIMARY CARE (T) STANDARD TITLE: PRIMARY CARE NOTE DATE OF NOTE: APR 22, 2023@13:20 ENTRY DATE: APR 22, 2023@13:20:55 AUTHOR: AMARIS GUAN EXP COSIGNER: URGENCY: STATUS: COMPLETED <====Click to Start Advanced Medical Support presents to the Primary Care clinic with the following request: [ ]Medication Renewal/Refill [ ]Consultation with Team RN [ ]Symptoms [ X ]Other The [facility] states they are: [ ]Waiting [ X ]Not Waiting No Walk in visit scheduled with PACT Nurse [ X ] At this encounter the [facility] [place]'s demographics were verified. [ X ] At this encounter the [facility]'s Insurance information was verified. [ X ] At this encounter the below scheduled visits for the [facility] were discussed and appointment reminder card was offered. Future appointments: 05/30/2023 13:30 CWM/SO/PHARM/PACT 2 09/04/2023 13:30 CWM/SO/PACT 5 01/13/2024 13:00 NHM/OPTOMETRY/NGUYEN/ dropped off a letter from the [facility], placed in providers mailbox. 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
--- OUTSIDE RECORDS SUMMARY | 2024-02-17 09:30 | XMS_ITS | Encounter Summary ---
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 Address [address] [place] [address] Care Team Providers Care Community Support Worker Name Role Phone LEV OCONNELL Primary Care [...] (PPO) FED EMPLO YEES Jan 26, 2020 [id number] [phone] ELIZABETH SMILEY JR PATIENT [employer] PREFERRED PROVIDER ORGANIZAT ION (PPO) DWAYNE AL EMPL [facility] Feb 25, 2016 [id number] ELIZABETH SMILEY JR PATIENT AET[employer] PREFERRED PROVIDER ORGANIZAT ION (PPO) DWAYNE AL EMPL [facility] Feb 25, 2016 [id number] ELIZABETH SMILEY PATIENT [employer] PREFERRED PROVIDER ORGANIZAT ION (PPO) DWAYNE AL EMPLO YE Feb 25, 2016 [id number] ELIZABETH SIMLEY JR PATIENT AETNA PREFERRED PROVIDER ORGANIZAT ION (PPO) DWAYNE MORALESO MIMI COOLEY Feb 24, 2016 [id number] ELIZABETH SMILEY PATIENT [employer]ET[employer] PHARMACY MANAGEMENT PRESCRIPT ION DWAYNE AL DEEP COOLEY Jan 26, 2020 [id number] ELIZABETH SMILEY JR PATIENT [employer] PHARMACY MANAGEMENT PRESCRIPT ION DWAYNE MORALESO MIMI Feb 25, 2016 [id number] ELIZABETH SMILEY PATIENT AET[employer] PHARMACY MANAGEMENT PRESCRIPT ION DAIANA Feb 25, 2016 [id number] ELIZABETH SMILEY PATIENT AETNA RX PRESCRIPT ION DWAYNE AL MIO MIMI COOLEY Feb 25, 2016 [id number] ELIZABETH SMILEY PATIENT AETNA RX PRESCRIPT ION FEHBP Feb 25, 2016 [id number] ELIZABETH SMILEY JR PATIENT [employer] POINT OF SERVICE TYCO Mar 20, 2002 [id number] ELIZABETH SMILEY PATIENT [employer]IG[employer]* POINT OF SERVICE Mar 20, 2002 [id number] ELIZABETH SMILEY PATIENT Selected Encounter This section includes the information on record at [place] for the Encounter. Date/Time Encounter Type Encounter Description Reason Pro vider Source Mar 25, 2023 12:05 PM Outpatient Encounter PRIMARY CARE/MEDICINE IHE Encounter Template Text not used by [place] Plan of Treatment: Future Appointments (+ 6 months) and Future Tests (+/- 45 days) The Plan of Treatment section includes future care activities for the patient from all [place] treatmentfacilities. This section includes future appointments and future orders which are active, pending or scheduled. Future Appointments This section includes appointments that were scheduled to occur 6 months from the date of the Encounter, up to a maximum of 20 appointments. The data comes from all [place] treatment facilities. Appointment Date/Time Appointment Type Appointme nt Facility Name May 30, 2023 08:00 AM [facility] May 30, 2023 08:15 AM [facility] Jun 04, 2023 04:00 PM AMBULATORY - MEDICINE [place] [facility] [place] [facility] June 24, 2023 03:00 PM AMBULATORY - NONE [facility] [place] [facility] Aug 08, 2023 03:00 PM AMBULATORY - MEDICINE [place] [facility] [place] [facility] Aug 13, 2023 03:10 PM AMBULATORY - MEDICINE [place] [facility] [place] [facility] Sep 04, 2023 01:30 PM AM[facility]ULATORY [facility] Social History: Smoking Status (Most current) and [...] Facil ity Feb 18, 2023 02:31 PM VA-TOBACCO FORMER USER [facility] Tobacco Use History This section includes a history of the smoking, or tobacco-related health factors, that were collected on or before the date of the Encounter. The data comes from the [place] facility where the Encounter took place. Date/Time Smoking Status/Tobacco Use Comment F acroger Feb 18, 2023 02:31 PM [facility] Dec 31, 2021 01:00 PM [facility] [place] [facility] Dec 31, 2021 01:00 PM VA-TOBACCO QUIT [facility] YRS [facility] Advance Directives: All historical and current [...] July 02, 2022 ADVANCE DIRECTIVE SANDRA BROOKS [facility] Aug 07, 2021 ADVANCE DIRECTIVE RADHA SAHA Nov 28, 2020 ADVANCE DIRECTIVE GOLDIE DUTTA [facility] [place] Encounter Notes: All associated encounter notes This section contains the clinical notes associated to the Encounter. Date/Time Encounter Note(s) Provider Source Mar 25, 2023 12:05 PM PREVENTIVE MEDICIN E NURSING NOTE: LOCAL TITLE: CLINICAL REMINDERS/NURSING STANDARD TITLE: PREVENTIVE MEDICINE NURSING NOTE DATE OF NOTE: MAR 25, 2023@12:05 ENTRY DATE: MAR 25, 2023@12:05:42 AUTHOR: JC GARCIA EXP COSIGNER: URGENCY: STATUS: COMPLETED CLINICAL REMINDERS/NURSING Has ADDENDA PAVE Foot Check: Patient indicates foot exam (including monofilament test for sensation) was performed in the past year in the private sector: Date: November 07, 2022 Result: Neurological exam demonstrates reduced light touch sensation reduced sharp/dull pin prick discrimination reduced vibration sensation 5.07 monofilament test performed at plantar aspects of 5 varied sites per foot shows sensation reduced at Forefoot B/L Pt relates increased burning pins and needles sensation L>R Follow-up as needed /bienvenido/ JC GARCIA, RN REGISTERED NURSE Signed: 03/25/2023 12:10 05/12/2023 ADDENDUM STATUS: COMPLETED BMI>30/>24.99 High Risk: At this visit, the health risks of obesity were reviewed and discussed with the [place], and the benefits of a weight management treatment program, such as MOVE! was discussed and offered to the . After discussing the health risks of being overweight or obese and providing information about available weight management treatment, the agreed to participate in the MOVE program and referral to the [facility] MOVE program was made. If MOVE program not availble, referred to Nutrition. /bienvenido/ MAXIMO HOFFMAN LPN LPN Signed: 05/12/2023 15:55 JC GARCIA
--- OUTSIDE RECORDS SUMMARY | 2024-02-17 09:30 | XMS_ITS | Encounter Summary ---
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 [place] Organization [facility] Address [address] [place] [address] Care Team Providers Care Cloth Inspector Name Role Phone LEV OCONNELL Primary Care [...] PREFERRED PROVIDER ORGANIZAT ION (PPO) FED EMPLO [facility] Jan 26, 2020 [id number] ELIZABETH SMILEY JR PATIENT [employer] PREFERRED PROVIDER ORGANIZAT ION (PPO) DWAYNE AL EMPLO [facility] Feb 25, 2016 [id number] [phone] ELIZABETH SMILEY JR PATIENT [employer] PREFERRED PROVIDER ORGANIZAT ION (PPO) DWAYNE AL EMPL [facility] Feb 25, 2016 [id number] ELIZABETH SMILEY JR PATIENT [employer] PREFERRED PROVIDER ORGANIZAT ION (PPO) DWAYNE AL EMPL [facility] Feb 25, 2016 [id number] ELIZABETH SMILEY PATIENT [employer] PREFERRED PROVIDER ORGANIZAT ION (PPO) DW[place] AL EMPLO [facility] Feb 24, 2016 [id number] ELIZABETH SMILEY PATIENT [employer] PHARMACY MANAGEMENT PRESCRIPT ION [place] AL EMPLO [facility] Jan 26, 2020 [id number] ELIZABETH SMILEY JR PATIENT [employer] PHARMACY MANAGEMENT PRESCRIPT ION ALICIAFT Feb 25, 2016 [id number] [phone] ELIZABETH SMILEY PATIENT [employer] PHARMACY MANAGEMENT PRESCRIPT ION [place] AL EMPLO MIMI Feb 25, 2016 [id number] ELIZABETH SMILEY PATIENT [employer]ET[employer] RX PRESCRIPT ION [place] EMPLO [facility] Feb 25, 2016 [id number] ELIZABETH SMILEY PATIENT [employer] RX PRESCRIPT ION FEHBP Feb 25, 2016 [id number] ELIZABETH SMILEY JR PATIENT [employer] POINT OF SERVICE [employer] Mar 20, 2002 [id number] ELIZABETH SMILEY PATIENT [employer]* POINT OF SERVICE Mar 20, 2002 [id number] ELIZABETH SMILEY PATIENT Selected Encounter This section includes the information on record at [place] for the Encounter. Date/Time Encounter Type Encounter Description Reason Provider Source Mar 19, 2023 01:30 PM CASE MANAGEMENT [facility] - IND ICD-10-CM G47.09 Other insomnia ALONZO FRENCH [place] Encounter Template Text not used by [place] Assessments - Encounter Diagnoses This section includes the primary and secondary diagnoses documented for the Encounter. Date/Time Primary/Secondary Diagnosis Diagnosis Name Provider Source Mar 19, 2023 01:48 PM PRIMARY Other insomnia ALONZO FRENCH [facility] Plan of Treatment: Future Appointments (+ 6 months) and Future Tests (+/- 45 days) The Plan of Treatment section includes future care activities for the patient from all [facility] treatment[facility]ilities. This section includes future appointments and future orders which are active, pending or scheduled. Future Appointments This section includes appointments that were scheduled to occur 6 months from the date of the Encounter, up to a maximum of 20 appointments. The data comes from all [place] treatment facilities. Appointment Date/Time Appointment Type Appointme nt Facility Name May 30, 2023 08:00 AM [facility]ORY [facility] MEDICINE [facility] May 30, 2023 08:15 AM AMBULATORY - MEDICINE [facility] Jun 04, 2023 04:00 PM AMBULATORY [place]ICINE [place] [facility] [facility] June 24, 2023 03:00 PM AMBULATORY - NONE [place] [facility] [place] [facility] Aug 08, 2023 03:00 PM AMBULATORY - MEDICINE [place] [facility] [place] [facility] Aug 13, 2023 03:10 PM AMBULATORY - MEDICINE [place] [facility] [place] [facility] Sep 04, 2023 01:30 PM AMBULATORY - MEDICINE [facility] Lab Results: +/- 30 days of the encounter This section includes the Chemistry and Hematology Lab Results on record with [place] for the patient. Radiology Reports and Pathology Reports are provided separately, in subsequent sections. Lab Results This section contains the Chemistry/Hematology Results that were resulted 30 days before or 30 daysafter the date of the Encounter. Date/Time Source Result Type Result - Unit Interpretation Reference Range Comment Feb 21, 2023 07:49 AM [facility] BASIC METABOLIC PANEL (fasting) Specime n Type: SERUM No comment entered. Ordering Provider: LEV LIZAMA Report Released Date/Time: Feb 18, 2023 02:37 PM Reporting Lab: [address] [address] [facility]forming [facility]: [facility] [address] [address] UREA NITROGEN 47 mg/dL H 7-25 GLUCOSE 155 mg/dL H 65-100 SODIUM 140 mmol/L 135-145 POTASSIUM 4.8 mmol/L 3.5-5.0 CHLORIDE 106 mmol/L 100-110 CO2 26 meq/L 20-30 CREATININE, Serum 2.19 mg/dL H 0.50-1.40 eGFR(CKD-EPI 2020) 33 mL/min L >60 Feb 21, 2023 07:49 AM [facility] LIPID PANEL FASTING Specimen Type: SERUM No comment entered. Ordering Provider: LEV LIZAMA Report Released Date/Time: Feb 18, 2023 02:37 PM Reporting Lab: [address] [address] Performing Lab: [address] [address] CHOLESTEROL 181 mg/dL TRIGLYCERIDE 244 mg/dL H 0-150 LDL calculated 105 mg/dL 0-129 CHOL/HDL 6.7 HDL CHOLESTEROL 27 mg/dL L 40-60 Feb 21, 2023 07:49 AM [facility] HEMOGLOBIN A1C PANEL Specimen Type: BLOOD Comment: [...] Feb 18, 2023 02:37 PM Reporting Lab: [address] [address] Performing Lab: [address] [address] HEMOGLOBIN A1C 7.0 H 4.0-5.6 Feb 21, 2023 07:49 AM [facility] LIVER FUNCTION Specimen Type: SERUM No comment entered. Ordering Provider: LEV LIZAMA Report Released Date/Time: Feb 18, 2023 02:37 PM Reporting Lab: [address] [address] Performing Lab: [address] [address] PROTEIN,TOTAL 6.1 g/dL 6.0-8.3 ALBUMIN 3.8 g/dL 3.5-5.0 ALKALINE PHOSPHATASE 49 U/L 40-150 AST 10 U/L 5-34 ALT 15 U/L BILIRUBIN, TOTAL 0.3 mg/dL 0.2-1.2 Feb 21, 2023 07:49 AM [facility] TSH Specimen Type: SERUM No comment entered. Ordering Provider: LEV LIZAMA Report Released Date/Time: Feb 18, 2023 02:37 PM Reporting Lab: [address] [address] Performing Lab: [address] [address] TSH 0.69 u[IU]/mL 0.35-5.00 Feb 21, 2023 07:49 AM [facility] CBC AND DIFF (AUTO) Specimen Type: BLOOD No comment entered. Ordering Provider: LEV LIZAMA Report Released Date/Time: Feb 18, 2023 02:37 PM Reporting Lab: [address] [address] Performing Lab: [address] [address] WBC 6.00 10*3/uL 4.50-11.00 RBC 4.32 10*6/uL 4.23-5.66 HGB 12.8 g/dL 12.8-17 HCT 38.8 L 39.2-50.4 MCV 89.8 fL 82-99 MCHC 33.0 g/dL 30.8-35.1 PLT 222 10*3/uL 140-360 RDW-CV 12.4 12.0-16.0 Taliaferro, Abs 0.56 10*3/uL 0.30-1.10 MCH 29.6 pg 26.2-32.6 Neut % 70.5 43.7-75.8 Lymph % 16.2 14.0-42.3 Taliaferro % 9.3 5.1-13.7 Eos % 3.2 0.4-6.8 [...] and tobacco- related health factors from the [place] facility where the Encounter took place. Current Smoking Status This section includes the most current smoking, or tobacco-related health factor, from the [place] facility where the Encounter took place. Date/Time Current Smoking Status Comment Facil ity Jan 08, 2021 01:30 PM VA-TOBACCO FORMER USER [facility] Tobacco Use History This section includes a history of the smoking, or tobacco-related health factors, that were collected on or before the date of the Encounter. The data comes from the [place] facility where the Encounter took place. Date/Time Smoking Status/Tobacco Use Comment F acility Jan 08, 2021 01:30 PM VA-TOBACCO QUIT 15 YRS OR MORE [facility] Jun 10, 2019 09:30 AM VA-TOBACCO FORMER USER [facility] Jun 10, 2019 09:30 AM VA-TOBACCO QUIT 15 YRS OR MORE [facility] Dec 04, 2017 11:51 AM VA-TOBACCO FORMER USER [facility] Dec 04, 2017 11:51 AM VA-TOBACCO QUIT 15 YRS OR MORE [facility] May 19, 2017 02:36 PM QUIT TOBACCO USE > 7 YEARS AGO [facility] May 15, 2016 10:07 AM QUIT TOBACCO USE > 7 YEARS AGO reports quitting 27 years ago [facility] Mar 21, 2015 02:13 PM QUIT TOBACCO USE > 7 YEARS AGO quit 04/11/1989, smoker 3 ppd x 10 yrs [facility] Oct 20, 2003 03:02 PM HISTORY OF SMOKING stopped tobacco 14 years ago [facility] Sep 14, 2002 09:25 AM HISTORY OF SMOKING quit 13 years ago [facility] Nov 25, 2001 10:54 AM QUIT TOBACCO USE > 7 YEARS AGO quit [facility] Sep 15, 2001 10:23 AM HISTORY OF SMOKING quit 12 years ago 04/11/1989 [facility] Advance Directives: All historical and current Section Date Range: From patient's date of to the date document was created. This section includes ALL of a patient's completed or amended [place] Advance and Rescinded Directives. The entries below indicate that a directive exists for the patient, but an actual copy is not included with this document. The data comes from all [place] facilities. Date Advance Directives Provider Source July 02, 2022 ADVANCE DIRECTIVE CECILIASANDRA [facility]ORTENSEN [facility] [place] Aug 07, 2021 ADVANCE DIRECTIVE RADHA SAHA [facility] [place] Nov 28, 2020 ADVANCE DIRECTIVE GOLDIE DUTTA [facility] [place] Encounter Notes: All associated encounter notes This section contains the clinical notes associated to the Encounter. Date/Time Encounter Note(s) Provider Source Mar 19, 2023 01:39 PM MENTAL HEALTH CONS ULT: LOCAL TITLE: CONSULT REPORT/CRANIAL ELECTROTHERAPY STIMULATION STANDARD TITLE: MENTAL HEALTH CONSULT DATE OF NOTE: MAR 19, 2023@13:39 ENTRY DATE: MAR 19, 2023@13:39:25 AUTHOR: ALONZO FRENCH COSIGNER: URGENCY: STATUS: COMPLETED F: Alpha-Stim Trial [place] arrived at clinic re: Alpha-Stim Trial # 2 is known to life underwriter and identified himself by name and date of . Braden is alert and oriented to person, place, time, and situation. Braden denies SI/HI, and or the use of any alcohol or illicit drugs. Blood Pressure: 132/75 (03/06/2023 09:03) Pain: 5 (06/18/2022 13:18) Patient Height: 67 in [170.2 cm] (03/01/2019 13:42) Patient Weight: 237 lb. [107.50 kg] (03/06/2023 09:03) Pulse: 66 (03/06/2023 09:03) Respiration: 18 (06/18/2022 13:18) Temperature: 96.9 F [36.1 C] (03/06/2023 09:03) D: Active problems - Computerized Problem List is the source for the followin. Cramp in lower leg 2. Constipation 3. Anemia (SCT 095559259) 4. Erectile Dysfunction (SCT 510809560) 5. Chronic kidney disease stage 4 6. Obstructive sleep apnea syndrome 7. Insomnia 8. Lumbar radiculopathy 9. History of excision of lamina of lumbar vertebra for decompression of spinal 10. Allergic rhinitis 11. Screening for Malignant Neoplasms of colon 12. Focal glomerulonephritis (SNOMED CT 26001809) 13. Obesity (SNOMED CT 491555099) 14. Hypothyroid (SNOMED CT 62295874) 15. Diabetes mellitus type 2 without retinopathy (SNOMED CT 9093975544266) 16. PROSTATE, MALIGN NEOPLASM 17. Nephrotic syndrome 18. Hyperlipidemia (SNOMED CT 46611391) 19. Benign essential hypertension (SNOMED CT 3794010) Active Outpatient Medications (including Supplies): Active Outpatient Medications Status = 1) AMLODIPINE BESYLATE 5MG TAB TAKE ONE TABLET BY MOUTH ACTIVE ONCE DAILY FOR BLOOD PRESSURE/HEART, DO NOT TAKE WITH GRAPEFRUIT JUICE 2) ATORVASTATIN CALCIUM 80MG TAB TAKE ONE-HALF TABLET BY ACTIVE MOUTH ONCE DAILY FOR CHOLESTEROL 3) BACLOFEN 10MG TAB TAKE ONE TABLET BY MOUTH THREE ACTIVE TIMES A DAY FOR MUSCLE RIGIDITY (REPLACES CYCLOBENZAPRINE) 4) CARBOXYMETHYLCELLULOSE NA 0.5% OPH SOLN INSTILL 1 ACTIVE DROP INTO EACH EYE FOUR TIMES A DAY FOR DRY EYE 5) CHOLECALCIF 25MCG (D3-1,000UNIT) TAB TAKE ONE TABLET ACTIVE BY MOUTH ONCE DAILY FOR VITAMIN SUPPLEMENTATION 6) CLONAZEPAM 0.5MG TAB TAKE ONE TABLET BY MOUTH THREE ACTIVE TIMES A DAY 7) EMPAGLIFLOZIN 10MG TAB TAKE ONE TABLET BY MOUTH ONCE ACTIVE DAILY FOR DIABETES 8) LEVOTHYROXINE NA (SYNTHROID) 100MCG TAB TAKE TWO ACTIVE TABLETS BY MOUTH FRI, FRI, FRI, FRI, FRI, & SAT AND TAKE ONE TABLET ON FRIDAY FOR THYROID - TAKE ON AN EMPTY STOMACH WITH A FULL GLASS OF WATER 9) LUBRICATING (PF) OPH OINT APPLY THIN RIBBON INTO EACH ACTIVE EYE AT BEDTIME FOR DRY EYE 10) SEMAGLUTIDE 0.25MG/0.375ML INJ PEN 3ML INJECT 0.5MG ACTIVE SUBCUTANEOUSLY ONCE A WEEK Active Non-VA Medications Status = 1) Non-VA ACETAMINOPHEN 325MG TAB 325MG BY MOUTH ACTIVE NEEDED 2) Non-VA ASPIRIN 81MG EC TAB 81MG BY MOUTH ONCE DAILY ACTIVE 3) Non-VA DOCUSATE NA CAP,ORAL 50MG BY MOUTH TWICE DAILY ACTIVE 4) Non-VA FISH OIL 1000MG (500MG DHA/EPA) CAP 1000MG BY ACTIVE MOUTH TWICE DAILY 5) Non-VA MAGNESIUM OXIDE 250MG TAB 500MG BY MOUTH AT ACTIVE BEDTIME 6) Non-VA MAGNESIUM OXIDE 250MG TAB 500MG BY MOUTH ONCE ACTIVE DAILY 7) Non-VA OTHER CAP/TAB 400MG BY MOUTH ONCE DAILY ACTIVE 8) Non-VA POLYETHYLENE GLYCOL 3350 ORAL PWDR 17 ACTIVE GRAMS(FILL CAP TO 17GM LINE) BY MOUTH ONCE DAILY NEEDED 18 Total Medications A/P: is utilizing Alpha-Stim for the diagnoses of insomnia Braden reports finding some benefit with falling back to sleep after his previous utilization of the Alpha-Stim. Braden utilized the Alpha-Stim again for 20 minutes and reports feeling more relaxed and experiencing a sense of calm while using the device. Braden is hopeful that the Alpha-Stim will help him with his insomnia in a non- pharmacological way and will contact life underwriter if he wishes to proceed with securing his own Alpha-Stim. Brdaen was encouraged to remain mindful of anything he notes good or bad after using the Alpha-Stim and is aware that he may contact life underwriter to discuss as needed. [employer]en [employer] will order Braden his personal device if he continues to find therapeutic benefit and remains interest in acquiring his own Alpha-Stim. Braden will be contacted and oriented to his personal Alpha-Stim once it has arrived in the clinic. Upcoming Appointments: 05/30/2023 13:30 CWM/SO/PHARM/PACT 2 09/04/2023 13:30 CWM/SO/PACT 5 01/13/2024 13:00 NHM/OPTOMETRY/NGUYEN/ understands how to utilize the [employer] Crisis Line (9-8-8 option 1) and urged to call that number at any time if they have thoughts about suicide and, or to call 911 or go to nearest E.R. if they have suicidal thoughts. [place] is aware that he can call or walk-in at anytime prior to next appointment. was provided with the date/time of next appointment as well as life underwriter's contact information for use as needed. No barriers; Patient understands and agrees to current treatment plan. If [place] has any questions, concerns, or changes in current health status will call or come in to the [facility]. 30 minutes spent in patient care and education. /bienvenido/ ALONZO FRENCH, MSN, RN, CNL MENTAL HEALTH NURSE SULKY DRIVER Signed: 03/19/2023 14:06 ALONZO FRENCH
--- OUTSIDE RECORDS SUMMARY | 2024-02-17 09:30 | XMS_ITS | Encounter Summary ---
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 [place] Organization [facility] [place] [place] Address [address] [place] [address] Care Team Providers Care Biomedical Specialist Name Role Phone LEV OCONNELL Primary Care [...] (PPO) FED EMPLO [facility] Jan 26, 2020 [id number] [phone] ELIZABETH SMILEY JR PATIENT [employer] PREFERRED PROVIDER ORGANIZAT ION (PPO) DWAYNE AL EMPL [facility] Feb 25, 2016 [id number] [phone] ELIZABETH SMILEY JR PATIENT [employer] PREFERRED PROVIDER ORGANIZAT ION (PPO) DWAYNE AL EMPL [facility] Feb 25, 2016 [id number] ELIZABETH SMILEY PATIENT [employer] PREFERRED PROVIDER ORGANIZAT ION (PPO) DW[place]NE AL EMPLO [facility] Feb 25, 2016 [id number] ELIZABETH SMILEY JR PATIENT [employer] PREFERRED PROVIDER ORGANIZAT ION (PPO) DWAYNE MORALESO [facility]I [facility] Feb 24, 2016 [id number] ELIZABETH SMILEY PATIENT [employer] PHARMACY MANAGEMENT PRESCRIPT ION DW[place] AL DEEP [facility] Jan 26, 2020 [id number] ELIZABETH SMILEY JR PATIENT [employer] PHARMACY MANAGEMENT PRESCRIPT ION [facility] MORALESO MIMI Feb 25, 2016 [id number] ELIZABETH SMILEY PATIENT [employer] PHARMACY MANAGEMENT PRESCRIPT ION DAIANA Feb 25, 2016 [id number] ELIZABETH SMILEY PATIENT [employer] RX PRESCRIPT ION [place] AL MIO [facility] Feb 25, 2016 [id number] ELIZABETH SMILEY PATIENT [employer] RX PRESCRIPT ION FEHBP Feb 25, 2016 [id number] ELIZABETH SMILEY JR PATIENT [employer] POINT OF SERVICE [employer] Mar 20, 2002 [id number] ELIZABETH SMILEY PATIENT [employer]* POINT OF SERVICE Mar 20, 2002 [id number] ELIZABETH SMILEY PATIENT Selected Encounter This section includes the information on record at [place] for the Encounter. Date/Time Encounter Type Encounter Description Reason Pro vider Source Apr 18, 2023 11:14 AM Outpatient Encounter PRIMARY CARE/MEDICINE IHE Encounter Template Text not used by [place] Plan of Treatment: Future Appointments (+ 6 months) and Future Tests (+/- 45 days) The Plan of Treatment section includes future care activities for the patient from all [place] treatmentfacilities. This section includes future appointments and future orders which are active, pending or scheduled. Future Appointments This section includes appointments that were scheduled to occur 6 months from the date of the Encounter, up to a maximum of 20 appointments. The data comes from all [place] treatment facilities. Appointment Date/Time Appointment Type Appointme nt Facility Name May 30, 2023 08:00 AM [facility] 30, 2023 08:15 AM [facility] MEDICINE [facility] Jun 04, 2023 04:00 PM AM[facility]ULATORY - MEDICINE [place] [facility] [place] [place] [place] [facility] June 24, 2023 03:00 PM AMBULATORY - NONE [facility] [place] [facility] Aug 08, 2023 03:00 PM AMBULATORY - MEDICINE [facility] [place] [facility] Aug 13, 2023 03:10 PM AMBULATORY - MEDICINE [facility] [place] [facility] Sep 04, 2023 01:30 PM [facility]ATORY - MEDICINE [facility] Sep 29, 2023 02:30 PM AMBULATORY - NONE [place] [facility] [place] [facility] Social History: Smoking Status (Most current) and Tobacco Use (All prior to encounter date) This section includes the most current, and the historical, smoking and tobacco- related health factors from the [place] facility where the Encounter took place. Current Smoking Status This section includes the most current smoking, or tobacco-related health factor, from the [place] facility where the Encounter took place. Date/Time Current Smoking Status Comment Corina ity Feb 18, 2023 02:31 PM [facility]CO [facility] Tobacco Use History This section includes a history of the smoking, or tobacco-related health factors, that were collected on or before the date of the Encounter. The data comes from the [place] facility where the Encounter took place. Date/Time Smoking Status/Tobacco Use Comment F acility Feb 18, 2023 02:31 PM VA-TOBACCO QUIT 15 YRS OR MORE [place] [facility] [place] [facility] Dec 31, 2021 01:00 PM VA-TOBACCO FORMER USER [place] [facility] [place] [facility] Dec 31, 2021 01:00 PM VA-TOBACCO QUIT [facility] YRS [facility] Advance Directives: All historical and current Section Date Range: From patient's date of to the date document was created. This section includes ALL of a patient's completed or amended [place] Advance and Rescinded Directives. The entries below indicate that a directive exists for the patient, but an actual copy is not included with this document. The data comes from all [place] facilities. Date Advance Directives Provider Source July 02, 2022 ADVANCE DIRECTIVE SANDRA BROOKS [facility] [place] Aug 07, 2021 ADVANCE DIRECTIVE RADHA SAHA [facility] [place] Nov 28, 2020 ADVANCE DIRECTIVE GOLDIE DUTTA [facility] [place] Encounter Notes: All associated encounter notes This section contains the clinical notes associated to the Encounter. Date/Time Encounter Note(s) Provider Source Apr 18, 2023 11:14 AM PRIMARY CARE SECUR E MESSAGING: LOCAL TITLE: PRIMARY CARE SECURE MESSAGING STANDARD TITLE: PRIMARY CARE SECURE MESSAGING DATE OF NOTE: APR 18, 2023@11:14 ENTRY DATE: APR 18, 2023@11:14:39 AUTHOR: EDUARDO OHARA EXP COSIGNER: URGENCY: STATUS: COMPLETED ------Original Message ----- Sent: 04/18/2023 11:11 AM ET From: ELIZABETH SMILEY To: ANISHO_PRIM MARY [facility] Subject: General:Referral Request I am requesting a referral to see: Dr. Vandana Álvarez (Nephrology) [facility] [address] [address] /bienvenido/ EDUARDO MENESES Signed: 04/18/2023 11:14 Receipt Acknowledged By: 04/21/2023 14:54 /es/ NGUYEN NEFF RN REGISTERED NURSE 04/23/2023 12:00 /bienvenido/ MOR TREVIÑO LPN, [place] [facility]
--- OUTSIDE RECORDS SUMMARY | 2024-02-17 09:30 | XMS_ITS ---
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 ([place]) Organization Department of [facility] Affairs ([place]) Address [address] [place] [address] Care Team Providers Care Welt Cutter Name Role Phone LEV OCONNELL Primary Care [...] PREFERRED PROVIDER ORGANIZAT ION (PPO) FED EMPLO [facility] Jan 26, 2020 [id number] ELIZABETH SMILEY JR PATIENT [employer] PREFERRED PROVIDER ORGANIZAT ION (PPO) DWAYNE AL EMPLO [facility] Feb 25, 2016 [id number] ELIZABETH MSILEY JR PATIENT [employer] PREFERRED PROVIDER ORGANIZAT ION (PPO) DWAYNE AL EMPL [facility] Feb 25, 2016 [id number] [phone] ELIZABETH SMILEY JR PATIENT [employer] PREFERRED PROVIDER ORGANIZAT ION (PPO) DWAYNE AL EMPL [facility] Feb 25, 2016 [id number] ELIZABETH SMILEY PATIENT AET[employer] PREFERRED PROVIDER ORGANIZAT ION (PPO) DWAYNE AL MIO MIMI [facility] Feb 24, 2016 [id number] ELIZABETH SMILEY PATIENT [employer] PHARMACY MANAGEMENT PRESCRIPT ION DWAYNE AL EMPLO MIMI Jan 26, 2020 [id number] ELIZABETH SMILEY JR PATIENT [employer] PHARMACY MANAGEMENT PRESCRIPT ION DAIANA Feb 25, 2016 [id number] ELIZABETH SMILEY PATIENT [employer] PHARMACY MANAGEMENT PRESCRIPT ION DWAYNE AL EMPLO MIMI Feb 25, 2016 [id number] ELIZABETH SMILEY PATIENT AETNA RX PRESCRIPT ION DWAYNE AL EMPLO MMII Feb 25, 2016 [id number] ELIZABETH SMILEY PATIENT AETNA RX PRESCRIPT ION [facility] Feb 25, 2016 [id number] ELIZABETH SMILEY JR PATIENT [employer] POINT OF SERVICE [employer] Mar 20, 2002 [id number] ELIZABETH SMILEY PATIENT CIGNA* POINT OF SERVICE Mar 20, 2002 [id number] ELIZABETH SMILEY PATIENT Selected Encounter This section includes the information on record at [place] for the Encounter. Date/Time Encounter Type Encounter Description Reason Pro vider Source May 12, 2023 11:44 AM Outpatient Encounter PRIMARY CARE/MEDICINE IHE Encounter Template Text not used by [place] Plan of Treatment: Future Appointments (+ 6 months) and Future Tests (+/- 45 days) The Plan of Treatment section includes future care activities for the patient from all [place] treatmentfacilities. This section includes future appointments and future orders which are active, pending or scheduled. Future Appointments This section includes appointments that were scheduled to occur 6 months from the date of the Encounter, up to a maximum of 20 appointments. The data comes from all [place] treatment facilities. Appointment Date/Time Appointment Type Appointme nt Facility Name May 30, 2023 08:00 AM [facility] May 30, 2023 08:15 AM [facility]ICINE [facility] Jun 04, 2023 04:00 PM [facility] [place] [facility] June 24, 2023 03:00 PM AMBULATORY - NONE [facility] [place] [facility] Aug 08, 2023 03:00 PM AM[facility]ULATORY [facility] MEDICINE [facility] [place] [facility] Aug 13, 2023 03:10 PM AM[facility]ULATORY [facility] MEDICINE [facility] [place] [facility] Sep 04, 2023 01:30 PM [facility]ORY - MEDICINE [facility] Sep 29, 2023 02:30 PM AMBULATORY - NONE [place] [facility] [place] [facility] Social History: Smoking Status (Most current) and Tobacco Use (All prior to encounter date) This section includes the most current, and the historical, smoking and tobacco- related health factors from the [place] facility where the Encounter took place. Current Smoking Status This section includes the most current smoking, or tobacco-related health factor, from the [place] facility where the Encounter took place. Date/Time Current Smoking Status Comment Corina ity Feb 18, 2023 02:31 PM [facility] Tobacco Use History This section includes a history of the smoking, or tobacco-related health factors, that were collected on or before the date of the Encounter. The data comes from the [place] facility where the Encounter took place. Date/Time Smoking Status/Tobacco Use Comment F acility Feb 18, 2023 02:31 PM VA-TOBACCO QUIT 15 YRS OR MORE [place] [facility] [place] [facility] Dec 31, 2021 01:00 PM VA-TOBACCO FORMER USER [place] [facility] [facility] Dec 31, 2021 01:00 PM VA-TOBACCO QUIT 15 YRS OR MORE [facility] Advance Directives: All historical and current Section Date Range: From patient's date of to the date document was created. This section includes ALL of a patient's completed or amended [place] Advance and Rescinded Directives. The entries below indicate that a directive exists for the patient, but an actual copy is not included with this document. The data comes from all [place] facilities. Date Advance Directives Provider Source July 02, 2022 ADVANCE DIRECTIVE SANDRA BROOKS [facility] Aug 07, 2021 ADVANCE DIRECTIVE RADHA SAHA [facility] Nov 28, 2020 ADVANCE DIRECTIVE GOLDIE DUTTA [facility] [place] Encounter Notes: All associated encounter notes This section contains the clinical notes associated to the Encounter. Date/Time Encounter Note(s) Provider Source May 12, 2023 11:44 AM PRIMARY CARE SECUR E MESSAGING: LOCAL TITLE: PRIMARY CARE SECURE MESSAGING STANDARD TITLE: PRIMARY CARE SECURE MESSAGING DATE OF NOTE: MAY 12, 2023@11:44 ENTRY DATE: MAY 12, 2023@12:44:51 AUTHOR: EDUARDO OHARA EXP COSIGNER: URGENCY: STATUS: COMPLETED ------Original Message ----- Sent: 05/12/2023 12:42 PM ET From: ELIZABETH SMILEY To: ANISHO_PRIM [facility]ARY [facility] Subject: Appointment:Looking to meet with a Job Spotter Would like to meet with someone concerning diet, because I have lost no weight on Ozempic. An Afternoon appointment would be best so my can join. /bienvenido/ EDUARDO MENESES Signed: 05/12/2023 12:44 Receipt Acknowledged By: 05/13/2023 10:48 /es/ NGUYEN NEFF RN REGISTERED NURSE 05/15/2023 14:07 /bienvenido/ MOR TREVIÑO LPN, [facility]
--- OUTSIDE RECORDS SUMMARY | 2024-02-17 09:30 | XMS_ITS | Encounter Summary ---
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 [place] [facility] [place] Address [address] [place] [address] Care Team Providers Care Digester Operator Helper Name Role Phone LEV OCONNELL Primary Care [...] (PPO) FED EMPLO [facility] Jan 26, 2020 [id number] ELIZABETH SMILEY JR PATIENT [employer] PREFERRED PROVIDER ORGANIZAT ION (PPO) DWAYNE AL EMPL [facility] Feb 25, 2016 [id number] ELIZABETH SMILEY JR PATIENT AETNA PREFERRED PROVIDER ORGANIZAT ION (PPO) DWAYNE AL EMPL [facility] Feb 25, 2016 [id number] ELIZABETH SMILEY PATIENT A[employer]NA PREFERRED PROVIDER ORGANIZAT ION (PPO) DWAYNE AL EMPLO [facility] Feb 25, 2016 [id number] ELIZABETH SMILEY JR PATIENT A[employer]NA PREFERRED PROVIDER ORGANIZAT ION (PPO) DWAYNE SIL[facility] Feb 24, 2016 [id number] ELIZABETH SMILEY PATIENT AETNA PHARMACY MANAGEMENT PRESCRIPT ION DWAYNE SILVA Jan 26, 2020 [id number] ELIZABETH SMILEY JR PATIENT AETNA PHARMACY MANAGEMENT PRESCRIPT ION DAIANA Feb 25, 2016 [id number] ELIZABETH SMILEY PATIENT AETNA PHARMACY MANAGEMENT PRESCRIPT ION DWAYNE PIERCE Feb 25, 2016 [id number] ELIZABETH SMILEY PATIENT AETNA RX PRESCRIPT ION DWAYNE SILVA Feb 25, 2016 [id number] ELIZABETH SMILEY PATIENT AETNA RX PRESCRIPT ION [facility] Feb 25, 2016 [id number] ELIZABETH SMILEY JR PATIENT CIGNA POINT OF SERVICE TYCO Mar 20, 2002 [id number] ELIZABETH SMILEY PATIENT CIGNA* POINT OF SERVICE Mar 20, 2002 [id number] ELIZABETH SMILEY PATIENT Selected Encounter This section includes the information on record at [place] for the Encounter. Date/Time Encounter Type Encounter Description Reason Provider Source Mar 11, 2023 02:00 PM OFF/OP EST JUNE X REQ Y/[facility] - IND ICD-10-CM G47.09 Other insomnia ALONZO FRENCH [place] Encounter Template Text not used by [place] Assessments - Encounter Diagnoses This section includes the primary and secondary diagnoses documented for the Encounter. Date/Time Primary/Secondary Diagnosis Diagnosis Name Provider Source Mar 18, 2023 12:06 PM PRIMARY Other insomnia ALONZO FRENCH [facility] Plan of Treatment: Future Appointments (+ 6 [...] 20 appointments. The data comes from all [place] treatment facilities. Appointment Date/Time Appointment Type Appointme nt Facility Name Mar 19, 2023 01:30 PM AMBULATORY - PSYCHIATRY [facility] May 30, 2023 08:00 AM AMBULATORY - MEDICINE [facility] May 30, 2023 08:15 AM AMBULATORY - MEDICINE [facility] Jun 04, 2023 04:00 PM AM[place]ORY [place] [facility] [place] [facility] June 24, 2023 03:00 PM AMBULATORY - NONE [place] [facility] [place] [facility] Aug 08, 2023 03:00 PM AMBULATORY [place] MEDICINE [place] [facility] [place] [facility] Aug 13, 2023 03:10 PM AM[place]ULATORY [place] MEDICINE [place] [facility] [place] [facility] Sep 04, 2023 01:30 PM AMBULATORY - MEDICINE [facility] Lab Results: +/- 30 days of the encounter This section includes the Chemistry and Hematology Lab Results on record with [place] for the patient. Radiology Reports and Pathology Reports are provided separately, in subsequent sections. Lab Results This section contains the Chemistry/Hematology Results that were resulted 30 days before or 30 daysafter the date of the Encounter. Date/Time Source Result Type Result - Unit Interpretation Reference Range Comment Feb 21, 2023 07:49 AM [facility] HEMOGLOBIN A1C PANEL Specimen Type: BLOOD Comment: [...] Feb 18, 2023 02:37 PM Reporting Lab: [address] [address] Performing Lab: [address] [address] HEMOGLOBIN A1C 7.0 H 4.0-5.6 Feb 21, 2023 07:49 AM [facility] LIPID PANEL FASTING Specimen Type: SERUM No comment entered. Ordering Provider: LEV LIZAMA Report Released Date/Time: Feb 18, 2023 02:37 PM Reporting Lab: [address] [address] Performing Lab: [address] [address] CHOLESTEROL 181 mg/dL TRIGLYCERIDE 244 mg/dL H 0-150 LDL calculated 105 mg/dL 0-129 CHOL/HDL 6.7 HDL CHOLESTEROL 27 mg/dL L 40-60 Feb 21, 2023 07:49 AM [facility] LIVER FUNCTION Specimen Type: SERUM No comment entered. Ordering Provider: LEV LIZAMA Report Released Date/Time: Feb 18, 2023 02:37 PM Reporting Lab: [address] [address] Performing Lab: [address] [address] PROTEIN,TOTAL 6.1 g/dL 6.0-8.3 ALBUMIN 3.8 g/dL 3.5-5.0 ALKALINE PHOSPHATASE 49 U/L 40-150 AST 10 U/L 5-34 ALT 15 U/L BILIRUBIN, TOTAL 0.3 mg/dL 0.2-1.2 Feb 21, 2023 07:49 AM [facility] BASIC METABOLIC PANEL (fasting) Specime n Type: SERUM No comment entered. Ordering Provider: LEV LIZAMA Report Released Date/Time: Feb 18, 2023 02:37 PM Reporting Lab: [address] [address] Performing Lab: [address] [address] UREA NITROGEN 47 mg/dL H 7-25 GLUCOSE 155 mg/dL H 65-100 SODIUM 140 mmol/L 135-145 POTASSIUM 4.8 mmol/L 3.5-5.0 CHLORIDE 106 mmol/L 100-110 CO2 26 meq/L 20-30 CREATININE, Serum 2.19 mg/dL H 0.50-1.40 eGFR(CKD-EPI 2020) 33 mL/min L >60 Feb 21, 2023 07:49 AM [facility] TSH Specimen Type: SERUM No comment entered. Ordering Provider: LEV LIZAMA Report Released Date/Time: Feb 18, 2023 02:37 PM Reporting Lab: [address] [address] Performing Lab: [address] [address] TSH 0.69 u[IU]/mL 0.35-5.00 Feb 21, 2023 07:49 AM [facility] CBC AND DIFF (AUTO) Specimen Type: BLOOD No comment entered. Ordering Provider: LEV LIZAMA Report Released Date/Time: Feb 18, 2023 02:37 PM Reporting Lab: [address] [address] Performing Lab: [address] [address] WBC 6.00 10*3/uL 4.50-11.00 RBC 4.32 10*6/uL 4.23-5.66 HGB 12.8 g/dL 12.8-17 HCT 38.8 L 39.2-50.4 MCV 89.8 fL 82-99 MCHC 33.0 g/dL 30.8-35.1 PLT 222 10*3/uL 140-360 RDW-CV 12.4 12.0-16.0 [place], Abs 0.56 10*3/uL 0.30-1.10 MCH 29.6 pg 26.2-32.6 Neut % 70.5 43.7-75.8 Lymph % 16.2 14.0-42.3 [place] % 9.3 5.1-13.7 Eos % 3.2 0.4-6.8 [...] and tobacco- related health factors from the [place] facility where the Encounter took place. Current Smoking Status This section includes the most current smoking, or tobacco-related health factor, from the [place] facility where the Encounter took place. Date/Time Current Smoking Status Comment Facil ity Jan 08, 2021 01:30 PM VA-TOBACCO FORMER USER [facility] Tobacco Use History This section includes a history of the smoking, or tobacco-related health factors, that were collected on or before the date of the Encounter. The data comes from the [place] facility where the Encounter took place. Date/Time Smoking Status/Tobacco Use Comment F acility Jan 08, 2021 01:30 PM VA-TOBACCO QUIT 15 YRS OR MORE [facility] Jun 10, 2019 09:30 AM VA-TOBACCO FORMER USER [facility] Jun 10, 2019 09:30 AM VA-TOBACCO QUIT 15 YRS OR MORE [facility] Dec 04, 2017 11:51 AM VA-TOBACCO FORMER USER [facility] Dec 04, 2017 11:51 AM VA-TOBACCO QUIT 15 YRS OR MORE [facility] May 19, 2017 02:36 PM QUIT TOBACCO USE > 7 YEARS AGO [facility] May 15, 2016 10:07 AM QUIT TOBACCO USE > 7 YEARS AGO reports quitting 27 years ago [facility] Mar 21, 2015 02:13 PM QUIT TOBACCO USE > 7 YEARS AGO quit 04/11/1989, smoker 3 ppd x 10 yrs [facility] Oct 20, 2003 03:02 PM HISTORY OF SMOKING stopped tobacco 14 years ago [facility] Sep 14, 2002 09:25 AM HISTORY OF SMOKING quit 13 years ago [facility] Nov 25, 2001 10:54 AM QUIT TOBACCO USE > 7 YEARS AGO quit [facility] Sep 15, 2001 10:23 AM HISTORY OF SMOKING quit 12 years ago 04/11/1989 [facility] Advance Directives: All historical and current Section Date Range: From patient's date of to the date document was created. This section includes ALL of a patient's completed or amended [place] Advance and Rescinded Directives. The entries below indicate that a directive exists for the patient, but an actual copy is not included with this document. The data comes from all [place] facilities. Date Advance Directives Provider Source July 02, 2022 ADVANCE DIRECTIVE [facility] Aug 07, 2021 ADVANCE DIRECTIVE RADHA SAHA [place] [place] Nov 28, 2020 ADVANCE DIRECTIVE GOLDIE DUTTA [facility] Encounter Notes: All associated encounter notes This section contains the clinical notes associated to the Encounter. Date/Time Encounter Note(s) Provider Source Mar 11, 2023 02:38 PM MENTAL HEALTH CONS ULT: LOCAL TITLE: CONSULT REPORT/CRANIAL ELECTROTHERAPY STIMULATION STANDARD TITLE: MENTAL HEALTH CONSULT DATE OF NOTE: MAR 11, 2023@14:38 ENTRY DATE: MAR 11, 2023@14:39:17 AUTHOR: ALONZO FRENCH EXP COSIGNER: URGENCY: STATUS: COMPLETED F: Alpha-Stim Trial [place] arrived at clinic re: Alpha-Stim Trial # 1 [place] identified himself by name and date of [...] lower leg 2. Constipation 3. Anemia (SCT 043025462) 4. Erectile Dysfunction (SCT 935048829) 5. Chronic kidney disease stage 4 6. Obstructive sleep apnea syndrome 7. Insomnia 8. Lumbar radiculopathy 9. History of excision of lamina of lumbar vertebra for decompression of spinal 10. Allergic rhinitis 11. Screening for Malignant Neoplasms of colon 12. Focal glomerulonephritis (SNOMED CT 93615607) 13. Obesity (SNOMED CT 476825228) 14. Hypothyroid (SNOMED CT 56359750) 15. Diabetes mellitus type 2 without retinopathy (SNOMED CT 3441010562885) 16. PROSTATE, MALIGN NEOPLASM 17. Nephrotic syndrome 18. Hyperlipidemia (SNOMED CT 34279894) 19. Benign essential hypertension (SNOMED CT 5175488) Active Outpatient Medications (including Supplies): Active Outpatient [...] ONCE DAILY NEEDED 18 Total Medications A/P: [place] is utilizing Alpha-Stim for the diagnoses of insomnia Initial trial Dr. Contreras suggested that [place] try the Alpha-Stim device for insomnia. Braden was informed that the Alpha-Stim is an FDA indicated non-pharmacological therapy that could be helpful for managing/reducing anxiety and depression as well as promoting improved sleep. Braden was also informed that 3 trials are needed prior to being issued an Alpha-Stim device of his own, Braden agrees to trials. Poultry Farm Worker explained what to expect, demonstrated how to set-up, and utilize the Alpha-Stim. Braden utilized the Alpha-Stim for 20 minutes and reports he noted a dull headache and we lowered the speed until it resolved. Braden also notes feeling more relaxed and experiencing a sense of calm while using the device. Braden is hopeful that the Alpha-Stim will help him with his insomnia in a non- pharmacological way and made a second appointment with business writer to trial the Alpha-Stim again. Braden was encouraged to be mindful of anything he notes good or bad after using the Alpha-Stim and is aware that he may contact business writer to discuss and or we will discuss at next trial. Poultry Farm Worker will order Braden his personal device if he continues to find therapeutic benefit and remains interest in acquiring his own Alpha-Stim after the second trial is completed. Braden will be contacted and oriented to his personal Alpha-Stim once it has arrived in the clinic. Upcoming Appointments: 03/19/2023 13:30 CWM/SO/MHC/MANOLO 05/30/2023 13:30 CWM/SO/PHARM/PACT 2 09/04/2023 13:30 CWM/SO/PACT 5 01/13/2024 13:00 NHM/OPTOMETRY/NGUYEN/ understands how to utilize the [employer] Crisis Line (9-8-8 option 1) and urged to call that number at any time if they have thoughts about suicide and, or to call 911 or go to nearest E.R. if they have suicidal thoughts. RTC 03/19/2023, however is aware that he can call or walk-in at anytime prior to next appointment. was provided with the date/time of next appointment as well as business writer's contact information for use as needed. No barriers; Patient understands and agrees to current treatment plan. If has any questions, concerns, or changes in current health status will call or come in to the [facility]. 30 minutes spent in patient care and education. /bienvenido/ ALONZO FRENCH, MSN, RN, CNL MENTAL HEALTH NURSE TAPER AND FLOATER Signed: 03/11/2023 14:56 ALONZO FRENCH
--- OUTSIDE RECORDS SUMMARY | 2024-02-17 09:30 | XMS_ITS ---
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 Organization [facility] [place] [facility] [place] Address [address] [place] [address] Care Team Providers Care Medical Social Consultant Name Role Phone LEV OCONNELL Primary Care [...] PREFERRED PROVIDER ORGANIZAT ION (PPO) FED EMPLO [facility] Jan 26, 2020 [id number] [phone] ELIZABETH SMILEY JR PATIENT [employer] PREFERRED PROVIDER ORGANIZAT ION (PPO) DWAYNE AL EMPLO [facility] Feb 25, 2016 [id number] [phone] ELIZABETH SMILEY JR PATIENT [employer]ET[employer] PREFERRED PROVIDER ORGANIZAT ION (PPO) DWAYNE AL EMPL [facility] Feb 25, 2016 [id number] ELIZABETH SMILEY JR PATIENT AETNA PREFERRED PROVIDER ORGANIZAT ION (PPO) DWAYNE AL EMPL [facility] Feb 25, 2016 [id number] ELIZABETH SMILEY PATIENT AETNA PREFERRED PROVIDER ORGANIZAT ION (PPO) DWAYNE AL MIO MIMI [facility] Feb 24, 2016 [id number] ELIZABETH SMILEY PATIENT [employer]ETNA PHARMACY MANAGEMENT PRESCRIPT ION DWAYNE AL EMPLO MIMI Jan 26, 2020 [id number] ELIZABETH SMILEY JR PATIENT [employer] PHARMACY MANAGEMENT PRESCRIPT ION DAIANA Feb 25, 2016 [id number] ELIZABETH SMILEY PATIENT [employer]ET[employer] PHARMACY MANAGEMENT PRESCRIPT ION DWAYNE AL EMPLO MIMI Feb 25, 2016 [id number] ELIZABETH SMILEY PATIENT AETNA RX PRESCRIPT ION DWAYNE AL EMPLO MIMI Feb 25, 2016 [id number] ELIZABETH SMILEY PATIENT [facility]NA [facility] Feb 25, 2016 [id number] ELIZABETH SMILEY JR PATIENT [employer] POINT OF SERVICE T[employer]CO Mar 20, 2002 [id number] ELIZABETH SMILEY PATIENT CIGNA* POINT OF SERVICE Mar 20, 2002 [id number] ELIZABETH SMILEY PATIENT Selected Encounter This section includes the information on record at [place] for the Encounter. Date/Time Encounter Type Encounter Description Reason Pro vider Source May 19, 2023 07:13 AM Outpatient Encounter PRIMARY CARE/MEDICINE IHE Encounter Template Text not used by CT Plan of Treatment: Future Appointments (+ 6 months) and Future Tests (+/- 45 days) The Plan of Treatment section includes future care activities for the patient from all CT treatmentfacilities. This section includes future appointments and future orders which are active, pending or scheduled. Future Appointments This section includes appointments that were scheduled to occur 6 months from the date of the Encounter, up to a maximum of 20 appointments. The data comes from all CT treatment facilities. Appointment Date/Time Appointment Type Appointme nt Facility Name May 30, 2023 08:00 AM AMBULATORY - MEDICINE [facility] May 30, 2023 08:15 AM AMBULATORY - MEDICINE [facility] Jun 04, 2023 04:00 PM AMBULATORY [place] [place] [facility] June 24, 2023 03:00 PM AMBULATORY - NONE [place] [facility] [place] [place] [facility] Aug 08, 2023 03:00 PM AMBULATORY - MEDICINE [place] [place] [facility] Aug 13, 2023 03:10 PM AMBULATORY - MEDICINE [place] [place] [facility] Sep 04, 2023 01:30 PM [facility] Sep 29, 2023 02:30 PM [facility] Lab Results: +/- 30 days of the encounter This section includes the Chemistry and Hematology Lab Results on record with CT for the patient. Radiology Reports and Pathology Reports are provided separately, in subsequent sections. Lab Results This section contains the Chemistry/Hematology Results that were resulted 30 days before or 30 daysafter the date of the Encounter. Date/Time Source Result Type Result - Unit Interpretation Reference Range Comment June 18, 2023 07:38 AM [facility] THYROID T4 FREE(FT4) (WROX) Specimen Type: SERUM No comment entered. Ordering Provider: LEV LIZAMA Report Released Date/Time: Jun 16, 2023 11:42 AM Reporting Lab: [facility] [address] [address] Performing Lab: [facility] [address] [facility] [address] THYROID T4 FREE(FT4) (WROX) 1.50 ng/dL 0.6-1.6 June 18, 2023 07:38 AM [facility] HEMOGLOBIN A1C PANEL Specimen Type: BLOOD Comment: Values obtained from A1C measurements can vary. For atypical A1C assays, a reported value of 7.0 could actually be between 6.72 and 7.28 if measured by a reference method. A reported value of 9.0 could actually be between 8.73 and 9.27. Ref: http://www.ngs p.org/CAPdata. asp Ordering Provider: LEV LIZAMA Report Released Date/Time: Jun 16, 2023 11:42 AM Reporting Lab: [facility] [place] [facility] [address] [address] Performing Lab: [facility] [address] [address] HEMOGLOBIN A1C 7.4 H 4.0-5.6 June 18, 2023 07:38 AM [facility] TSH Specimen Type: SERUM No comment entered. Ordering Provider: LEV LIZAMA Report Released Date/Time: Jun 16, 2023 11:42 AM Reporting Lab: [facility] [place] [facility] [address] [address] Performing Lab: [facility]ITALTR[facility] [address] [address] TSH 0.33 u[IU]/mL L 0.35-5.00 Social History: Smoking Status (Most current) and Tobacco Use (All prior to encounter date) This section includes the most current, and the historical, smoking and tobacco- related health factors from the [place] facility where the Encounter took place. Current Smoking Status This section includes the most current smoking, or tobacco-related health factor, from the [place] facility where the Encounter took place. Date/Time Current Smoking Status Comment Corina ity Feb 18, 2023 02:31 PM [place]-TOBACCO FORMER USER [facility] Tobacco Use History This section includes a history of the smoking, or tobacco-related health factors, that were collected on or before the date of the Encounter. The data comes from the [place] facility where the Encounter took place. Date/Time Smoking Status/Tobacco Use Comment F acility Feb 18, 2023 02:31 PM VA-TOBACCO QUIT [address] [facility] [place] [facility] Dec 31, 2021 01:00 PM VA-TOBACCO FORMER USER [place] [place] [facility] Dec 31, 2021 01:00 PM VA-TOBACCO QUIT 15 YRS OR MORE [facility] Advance Directives: All historical and current Section Date Range: From patient's date of to the date document was created. This section includes ALL of a patient's completed or amended VA Advance and Rescinded Directives. The entries below indicate that a directive exists for the patient, but an actual copy is not included with this document. The data comes from all CT facilities. Date Advance Directives Provider Source July 02, 2022 ADVANCE DIRECTIVE SANDRA BROOKS [place] [place] Aug 07, 2021 ADVANCE DIRECTIVE RADHA SAHA [place] Nov 28, 2020 ADVANCE DIRECTIVE GOLDIE DUTTA [facility] [place] Encounter Notes: All associated encounter notes This section contains the clinical notes associated to the Encounter. Date/Time Encounter Note(s) Provider Source May 19, 2023 07:13 AM PRIMARY CARE [employer] MESSAGING: LOCAL TITLE: PRIMARY CARE SECURE MESSAGING STANDARD TITLE: PRIMARY CARE SECURE MESSAGING DATE OF NOTE: MAY 19, 2023@07:13 ENTRY DATE: MAY 19, 2023@08:13:07 AUTHOR: EDUARDO OHARA EXP COSIGNER: URGENCY: STATUS: COMPLETED ------Original Message ---- Sent: 05/19/2023 06:34 AM ET From: ELIZABETH SMILEY To: JEREMI OCONNELL [facility] Subject: Medication:EMPAGLIFLOZIN I have no refills available on EMPAGLIFLOZIN 10MG TAB RX#[id number]. Can i please get this renewed. /bienvenido/ EDUARDO MENESES Signed: 05/19/2023 08:13 Receipt Acknowledged By: 05/19/2023 13:43 /es/ NGUYEN NEFF RN REGISTERED NURSE 05/21/2023 12:20 /es/ MOR TREVIÑO LPN, [facility]
--- OUTSIDE RECORDS SUMMARY | 2024-02-17 09:30 | XMS_ITS ---
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 [place] Organization [facility] [place] Address [address] [place] [address] Care Team Providers Care Tram Driver Name Role Phone LEV OCONNELL Primary [...] (PPO) FED EMPLO YE Jan 26, 2020 [id number] ELIZABETH SMILEY JR PATIENT [employer] PREFERRED PROVIDER ORGANIZAT ION (PPO) DWAYNE AL EMPL [facility] Feb 25, 2016 [id number] ELIZABETH SMILEY JR PATIENT AETNA PREFERRED PROVIDER ORGANIZAT ION (PPO) DWAYNE AL EMPL [facility] Feb 25, 2016 [id number] ELIZABETH SMILEY PATIENT A[employer] PREFERRED PROVIDER ORGANIZAT ION (PPO) DWAYNE AL EMPLO [place] Feb 25, 2016 [id number] ELIZABETH SMILEY JR PATIENT AETNA PREFERRED PROVIDER ORGANIZAT ION (PPO) DWAYNE MORALESO MIMI COOLEY Feb 24, 2016 [id number] ELIZABETH SMILEY PATIENT AETNA PHARMACY MANAGEMENT PRESCRIPT ION DWAYNE SILVA Jan 26, 2020 [id number] ELIZABETH SMILEY JR PATIENT [employer] PHARMACY MANAGEMENT PRESCRIPT ION DAIANA Feb 25, 2016 [id number] ELIZABETH SMILEY PATIENT [employer] PHARMACY MANAGEMENT PRESCRIPT ION DWAYNE AL MIO MIMI Feb 25, 2016 [id number] ELIZABETH SMILEY PATIENT AETNA RX PRESCRIPT ION DWAYNE SILVA Feb 25, 2016 [id number] ELIZABETH SMILEY PATIENT AETNA RX PRESCRIPT ION FEP Feb 25, 2016 [id number] ELIZABETH SMILEY JR PATIENT [employer]IGNA POINT OF SERVICE TYCO Mar 20, 2002 [id number] ELIZABETH SMILEY PATIENT CIGNA* POINT OF SERVICE Mar 20, 2002 [id number] ELIZABETH SMILEY PATIENT Selected Encounter This section includes the information on record at [place] for the Encounter. Date/Time Encounter Type Encounter Description Reason Provider Source Feb 24, 2023 02:19 PM Outpatient Encounter PROSTHETICS/ORTHOTI CS KARY Lepe,LEV Antunez E Encounter Template Text not used by [place] [...] 2023 09:00 AM AMBULATORY - MEDICINE [facility] Mar 11, 2023 02:00 PM AMBULATORY - PSYCHIATRY [facility] Mar 19, 2023 01:30 PM AMBULATORY - PSYCHIATRY [facility] May 30, 2023 08:00 AM AMBULATORY - MEDICINE [facility] May 30, 2023 08:15 AM AMBULAT[facility] MEDICINE [facility] Jun 04, 2023 04:00 PM AMBULATORY - MEDICINE [place] [place] [facility] June 24, 2023 03:00 PM AMBULATORY - NONE [place] [facility] [place] [facility] Aug 08, 2023 03:00 PM AMBULATORY - [place]ICINE [place] [facility] Aug 13, 2023 03:10 PM AMBULATORY - MEDICINE [place] [facility] Lab Results: +/- 30 days of the [...] Range Comment Feb 21, 2023 07:49 AM [place] HEMOGLOBIN A1C PANEL Specimen Type: BLOOD Comment: [...] Feb 18, 2023 02:37 PM Reporting Lab: [facility] [address] [address] Performing Lab: [facility] [address] [address] HEMOGLOBIN A1C 7.0 H 4.0-5.6 Feb 21, 2023 07:49 AM [place] LIPID PANEL FASTING Specimen Type: SERUM No comment entered. Ordering Provider: LEV LIZAMA Report Released Date/Time: Feb 18, 2023 02:37 PM Reporting Lab: [address] [address] Performing Lab: [address] [address] CHOLESTEROL 181 mg/dL TRIGLYCERIDE 244 mg/dL H 0-150 LDL calculated 105 mg/dL 0-129 CHOL/HDL 6.7 HDL CHOLESTEROL 27 mg/dL L 40-60 Feb 21, 2023 07:49 AM [place] LIVER FUNCTION Specimen Type: SERUM No comment entered. Ordering Provider: LEV LIZAMA Report Released Date/Time: Feb 18, 2023 02:37 PM Reporting Lab: [address] [address] Performing Lab: [address] [address] PROTEIN,TOTAL 6.1 g/dL 6.0-8.3 ALBUMIN 3.8 g/dL 3.5-5.0 ALKALINE PHOSPHATASE 49 U/L 40-150 AST 10 U/L 5-34 ALT 15 U/L BILIRUBIN, TOTAL 0.3 mg/dL 0.2-1.2 Feb 21, 2023 07:49 AM [place] BASIC METABOLIC PANEL (fasting) Specime n Type: SERUM No comment entered. Ordering Provider: LEV LIZAMA Report Released Date/Time: Feb 18, 2023 02:37 PM Reporting Lab: [address] [address] Performing Lab: [address] [address] UREA NITROGEN 47 mg/dL H 7-25 GLUCOSE 155 mg/dL H 65-100 SODIUM 140 mmol/L 135-145 POTASSIUM 4.8 mmol/L 3.5-5.0 CHLORIDE 106 mmol/L 100-110 CO2 26 meq/L 20-30 CREATININE, Serum 2.19 mg/dL H 0.50-1.40 eGFR(CKD-EPI 2020) 33 mL/min L >60 Feb 21, 2023 07:49 AM [place] TSH Specimen Type: SERUM No comment entered. Ordering Provider: LEV LIZAMA Report Released Date/Time: Feb 18, 2023 02:37 PM Reporting Lab: [address] [address] Performing Lab: [address] [address] TSH 0.69 u[IU]/mL 0.35-5.00 Feb 21, 2023 07:49 AM [place] CBC AND DIFF (AUTO) Specimen Type: BLOOD No comment entered. Ordering Provider: LEV LIZAMA Report Released Date/Time: Feb 18, 2023 02:37 PM Reporting Lab: [address] [address] Performing Lab: [address] [address] WBC 6.00 10*3/uL 4.50-11.00 RBC 4.32 10*6/uL 4.23-5.66 HGB 12.8 g/dL 12.8-17 HCT 38.8 L 39.2-50.4 MCV 89.8 fL 82-99 MCHC 33.0 g/dL 30.8-35.1 PLT 222 10*3/uL 140-360 RDW-CV 12.4 12.0-16.0 Bartholomew, Abs 0.56 10*3/uL 0.30-1.10 MCH 29.6 pg 26.2-32.6 Neut % 70.5 43.7-75.8 Lymph % 16.2 14.0-42.3 Bartholomew % 9.3 5.1-13.7 Eos % 3.2 0.4-6.8 [...] Facil ity Feb 18, 2023 02:31 PM [place]-TOBAC[place] QUIT 15 YRS OR MORE [facility] Tobacco Use History This section includes a history of the smoking, or tobacco-related health factors, that were collected on or before the date of the Encounter. The data comes from the [place] facility where the Encounter took place. Date/Time Smoking Status/Tobacco Use Comment F acility Feb 18, 2023 02:31 PM [place]-TO[place] QUIT 15 YRS OR MORE [facility] Dec 31, 2021 01:00 PM [place] [facility] [facility] Dec 31, 2021 01:00 PM [place]-TO[place]AC[place] QUIT 15 YRS OR MORE [facility] Advance Directives: All historical and [...] Aug 07, 2021 ADVANCE DIRECTIVE RADHA SAHA [facility] Nov 28, 2020 ADVANCE DIRECTIVE GOLDIE DUTTA [facility]
--- OUTSIDE RECORDS SUMMARY | 2024-02-17 09:30 | XMS_ITS | Encounter Summary ---
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 Organization [place] Address [address] [place] [address] Care Team Providers Care Furniture Painter Name Role Phone LEV OCONNELL Primary Care [...] (PPO) FED EMPLO YEES Jan 26, 2020 [id number] ELIZABETH SMILEY JR PATIENT [employer] PREFERRED PROVIDER ORGANIZAT ION (PPO) DWAYNE AL EMPL [facility] Feb 25, 2016 [id number] ELIZABETH SMILEY JR PATIENT AETNA PREFERRED PROVIDER ORGANIZAT ION (PPO) DWAYNE AL EMPL [facility] Feb 25, 2016 [id number] ELIZABETH SMILEY PATIENT AETNA PREFERRED PROVIDER ORGANIZAT ION (PPO) DWAYNE AL EMPLO YE Feb 25, 2016 [id number] ELIZABETH SMILEY JR PATIENT AETNA PREFERRED PROVIDER ORGANIZAT ION (PPO) DWAYNE MORALESO MIMI COOLEY Feb 24, 2016 [id number] ELIZABETH SMILEY PATIENT [employer]ET[employer] PHARMACY MANAGEMENT PRESCRIPT ION DWAYNE AL MIO MIMI COO[place] Jan 26, 2020 [id number] ELIZABETH SMILEY JR PATIENT [employer] PHARMACY MANAGEMENT PRESCRIPT ION DAIANA Feb 25, 2016 [id number] ELIZABETH SMILEY PATIENT [employer]ET[employer] PHARMACY MANAGEMENT PRESCRIPT ION DWAYNE AL MIO MIMI Feb 25, 2016 [id number] ELIZABETH SMILEY PATIENT AETNA RX PRESCRIPT ION DWAYNE MORALESO MIMI COOLEY Feb 25, 2016 [id number] ELIZABETH SMILEY PATIENT AETNA RX PRESCRIPT ION FEP Feb 25, 2016 [id number] ELIZABETH SMILEY JR PATIENT [employer]IGNA POINT OF SERVICE TYCO Mar 20, 2002 [id number] ELIZABETH SMILEY PATIENT CIGNA* POINT OF SERVICE Mar 20, 2002 [id number] ELIZABETH SMILEY PATIENT Selected Encounter This section includes the information on record at [place] for the Encounter. Date/Time Encounter Type Encounter Description Reason Pro vider Source Mar 31, 2023 03:09 PM Outpatient Encounter PRIMARY CARE/MEDICINE IHE Encounter Template Text not used by [place] Plan of Treatment: Future Appointments (+ 6 [...] 2023 08:00 AM [facility] May 30, 2023 08:15 AM [facility] Jun 04, 2023 04:00 PM AMBULATORY - MEDICINE [place] [facility] June 24, 2023 03:00 PM AMBULATORY - NONE [place] [facility] [place] [facility] Aug 08, 2023 03:00 PM AMBULATORY - MEDICINE [place] [place] [facility] Aug 13, 2023 03:10 PM AMBULATORY - MEDICINE [place] [place] [facility] Sep 04, 2023 01:30 PM AMBULATORY - MEDICINE [facility] Sep 29, 2023 02:30 PM AMBULATORY - NONE [place] [facility] [facility] Social History: Smoking Status (Most current) [...] ity Feb 18, 2023 02:31 PM [place]-TOBACCO QUIT 15 YRS OR MORE [facility] Tobacco Use History This section includes a history of the smoking, or tobacco-related health factors, that were collected on or before the date of the Encounter. The data comes from the [place] facility where the Encounter took place. Date/Time Smoking Status/Tobacco Use Comment F acility Feb 18, 2023 02:31 PM VA-TOBACCO QUIT 15 YRS OR MORE [place] [facility] [place] [facility] Dec 31, 2021 01:00 PM VA-TOBACCO FORMER USER [place] [facility] [place] [facility] Dec 31, 2021 01:00 PM VA-TOBACCO QUIT 15 YRS OR MORE [facility] [place] [facility] Advance Directives: All historical and [...] Aug 07, 2021 ADVANCE DIRECTIVE RADHA SAHA [place] Nov 28, 2020 ADVANCE DIRECTIVE GOLDIE DUTTA [facility] [place] Encounter Notes: All associated encounter notes This section contains the clinical notes associated to the Encounter. Date/Time Encounter Note(s) Provider Source Mar 31, 2023 03:09 PM PRIMARY CARE SECUR E MESSAGING: LOCAL TITLE: PRIMARY CARE SECURE MESSAGING STANDARD TITLE: PRIMARY CARE SECURE MESSAGING DATE OF NOTE: MAR 31, 2023@15:09 ENTRY DATE: MAR 31, 2023@15:09:11 AUTHOR: EDUARDO OHARA EXP COSIGNER: URGENCY: STATUS: COMPLETED ------Original Message ----- Sent: 03/31/2023 03:05 PM ET From: ELIZABETH SMILEY To: ANISHO_PRIM [facility] Subject: Medication:Alcohol prep wipes I am in need of more Alcohol prep wipes forget use with my diabetes test kit and Ozempic shots. /bienvenido/ EDUARDO MENESES Signed: 03/31/2023 15:09 Receipt Acknowledged By: 04/01/2023 09:06 /bienvenido/ NGUYEN NEFF RN REGISTERED NURSE 04/03/2023 10:15 /bienvenido/ MOR TREVIÑO LPN, [place] [facility]
--- OUTSIDE RECORDS SUMMARY | 2024-02-17 09:31 | XMS_ITS | Encounter Summary ---
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 [place] [facility] [place] Address [address] [place] [address] Care Team Providers Care Semiautomatic Taper Operator Name Role Phone LEV OCONENLL Primary Care Provide r Unavailable Insurance Providers: [...] (PPO) FED EMPLO YE Jan 26, 2020 [id number] [phone] ELIZABETH SMILEY JR PATIENT AETNA PREFERRED PROVIDER ORGANIZAT ION (PPO) DW[place]NE [place] EMPL [facility] Feb 25, 2016 [id number] ELIZABETH SMILEY JR PATIENT AETNA PREFERRED PROVIDER ORGANIZAT ION (PPO) DWAYNE AL EMPL [facility] Feb 25, 2016 [id number] ELIZABETH SMILEY PATIENT AETNA PREFERRED PROVIDER ORGANIZAT ION (PPO) DWAYNE AL EMPLO [facility] Feb 25, 2016 [id number] ELIZABETH SMILEY JR PATIENT AETNA PREFERRED PROVIDER ORGANIZAT ION (PPO) DWAYNE MORALESO MIMI [facility] Feb 24, 2016 [id number] ELIZABETH SMILEY PATIENT AETNA PHARMACY MANAGEMENT PRESCRIPT ION DWAYNE AL MIO MIMI [facility]OO[facility] Jan 26, 2020 [id number] ELIZABETH SMILEY JR PATIENT [employer] PHARMACY MANAGEMENT PRESCRIPT ION [facility] Feb 25, 2016 [id number] ELIZABETH SMILEY PATIENT AETNA PHARMACY MANAGEMENT PRESCRIPT ION DWAYNE AL EMPLO MIMI Feb 25, 2016 [id number] ELIZABETH SMILEY PATIENT AETNA RX PRESCRIPT ION DWAYNE AL EMPLO MIM[facility] Feb 25, 2016 [id number] ELIZABETH SMILEY PATIENT AETNA RX PRESCRIPT ION [facility] Feb 25, 2016 [id number] ELIZABETH SMILEY JR PATIENT [employer] POINT OF SERVICE TYCO Mar 20, 2002 [id number] ELIZABETH SMILEY PATIENT CIGNA* POINT OF SERVICE Mar 20, 2002 [id number] ELIZABETH SMILEY PATIENT Selected Encounter This section includes the information on record at [place] for the Encounter. Date/Time Encounter Type Encounter Description Reason Provider Source May 30, 2023 08:15 AM OFFICE O/P EST LOW 20 MIN PRIMARY CARE/MEDICINE ICD-10-CM J06.9 Acute upper respiratory infection, unspecified RITA EDGE [place] Encounter Template Text not used by [place] Assessments - Encounter Diagnoses This section includes the primary and secondary diagnoses documented for the Encounter. Date/Time Primary/Secondary Diagnosis Diagnosis Name Provider Source June 20, 2023 11:35 AM PRIMARY Acute upper respiratory infection, unspecified [place]ITA EDGE June 20, 2023 11:35 AM SECONDARY Acute bronchitis, unspecified RITA EDGE Plan of Treatment: Future Appointments (+ 6 months) and Future Tests (+/- 45 days) The Plan of Treatment section includes future care activities for the patient from all [place] [facility]. This section includes future appointments and future orders which are active, pending or scheduled. Future Appointments This section includes appointments that were scheduled to occur 6 months from the date of the Encounter, up to a maximum of 20 appointments. The data comes from all [place] treatment facilities. Appointment Date/Time Appointment Type Appointme nt Facility Name Jun 04, 2023 04:00 PM AMBULATORY - MEDICINE [place] [facility] [place] [facility] June 24, 2023 03:00 PM AMBULATORY - NONE [place] [facility] [place] [facility] Aug 08, 2023 03:00 PM AMBULATORY - MEDICINE [place] [facility] [place] [facility] Aug 13, 2023 03:10 PM AMBULATORY - MEDICINE [place] [facility] [place] [facility] Sep 04, 2023 01:30 PM AMBULATORY - MEDICINE [facility] Sep 29, 2023 02:30 PM AMBULATORY - NONE [place] [facility] [place] [facility] Nov 26, 2023 10:00 AM AMBULATORY - MEDICINE [place] [facility] [place] [facility] Nov 28, 2023 07:35 PM AMBULATORY - MEDICINE [place] [facility] [place] [facility] Lab Results: +/- 30 days of the encounter This section includes the Chemistry and Hematology Lab Results on record with [place] for the patient. Radiology Reports and Pathology Reports are provided separately, in subsequent sections. Lab Results This section contains the Chemistry/Hematology Results that were resulted 30 days before or 30 daysafter the date of the Encounter. Date/Time Source Result Type Result - Unit Interpretation Reference Range Comment June 18, 2023 07:38 AM [facility] T4 FREE(FT4) (WROX) Specimen Type: SERUM No comment entered. Ordering Provider: LEV LIZAMA Report Released Date/Time: Jun 16, 2023 11:42 AM Reporting Lab: [place] [facility] [place] [facility] [address] [address] Performing Lab: [facility] [address] [facility] [address] THYROID T4 FREE(FT4) (WROX) 1.50 ng/dL 0.6-1.6 June 18, 2023 07:38 AM [facility] HEMOGLOBIN A1C PANEL Specimen Type: BLOOD [...] Jun 16, 2023 11:42 AM Reporting Lab: [address] [address] Performing Lab: [address] [address] HEMOGLOBIN A1C 7.4 H 4.0-5.6 June 18, 2023 07:38 AM [facility] TSH Specimen Type: SERUM No comment entered. Ordering Provider: LEV LIZAMA Report Released Date/Time: Jun 16, 2023 11:42 AM Reporting Lab: [address] [address] Performing Lab: [address] [address] TSH 0.33 u[IU]/mL L 0.35-5.00 Vital Signs: All taken on the encounter date This section contains inpatient and outpatient Vital Signs collected on the date of the Encounter. Date/Time Temperature Pulse Blood Pressure Respiratory Rate SP02 Pain Height Weight Body Mass Index Source May 30, 2023 08:33 AM 97.3 75 118/68 18 96 0 [place] Social History: Smoking Status (Most current) and Tobacco Use (All prior to encounter date) This section includes the most current, and the historical, smoking and tobacco- related health factors from the [place] facility where the Encounter took place. Current Smoking Status This section includes the most current smoking, or tobacco-related health factor, from the [place] facility where the Encounter took place. Date/Time Current Smoking Status Comment Corina alvares Jan 08, 2021 01:30 PM VA-TOBACCO FORMER USER [facility] Tobacco Use History This section includes a history of the smoking, or tobacco-related health factors, that were collected on or before the date of the Encounter. The data comes from the [place] facility where the Encounter took place. Date/Time Smoking Status/Tobacco Use Comment F acility Jan 08, 2021 01:30 PM VA-TOBACCO QUIT 15 YRS OR MORE [facility] Jun 10, 2019 09:30 AM VA-TOBACCO FORMER USER [facility] Jun 10, 2019 09:30 AM VA-TOBACCO QUIT 15 YRS OR MORE [facility] Dec 04, 2017 11:51 AM VA-TOBACCO FORMER USER [facility] Dec 04, 2017 11:51 AM VA-TOBACCO QUIT 15 YRS OR MORE [facility] May 19, 2017 02:36 PM QUIT TOBACCO USE > 7 YEARS AGO [facility] May 15, 2016 10:07 AM QUIT TOBACCO USE > 7 YEARS AGO reports quitting 27 years ago [facility] Mar 21, 2015 02:13 PM QUIT TOBACCO USE > 7 YEARS AGO quit 04/11/1989, smoker 3 ppd x 10 yrs [facility] Oct 20, 2003 03:02 PM HISTORY OF SMOKING stopped tobacco 14 years ago [facility] Sep 14, 2002 09:25 AM HISTORY OF SMOKING quit 13 years ago [facility] Nov 25, 2001 10:54 AM QUIT TOBACCO USE > 7 YEARS AGO quit [facility] Sep 15, 2001 10:23 AM HISTORY OF SMOKING quit 12 years ago 04/11/1989 [facility] Advance Directives: All historical and current Section Date Range: From patient's date of to the date document was created. This section includes ALL of a patient's completed or amended [place] Advance and Rescinded Directives. The entries below indicate that a directive exists for the patient, but an actual copy is not included with this document. The data comes from all [facility]. Date Advance Directives Provider Source July 02, 2022 ADVANCE DIRECTIVE SANDRA BROOKS [facility] Aug 07, 2021 ADVANCE DIRECTIVE RADHA SAHA [facility] [place] Nov 28, 2020 ADVANCE DIRECTIVE GOLDIE DUTTA [facility] Encounter Notes: All associated encounter notes This section contains the clinical notes associated to the Encounter. Date/Time Encounter Note(s) Provider Source May 30, 2023 07:52 AM NURSE PRACTITIONER NOTE: LOCAL TITLE: NURSE PRACTIONER/SICK VISIT STANDARD TITLE: NURSE PRACTITIONER NOTE DATE OF NOTE: MAY 30, 2023@07:52 ENTRY DATE: MAY 30, 2023@07:52:29 AUTHOR: [place] EXP COSIGNER: URGENCY: STATUS: COMPLETED SICK CALL VISIT ELIZABETH Argueta JR SMILEY is a 63 y/o DECLINED TO ANSWER MALE Pool who presents to [facility] sick call with c/o URI symptoms x almost 3 weeks. 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 Denies fever, [place], N/V/D. Has been taking OTC Delsym, which has helped him sleep. Also using Flonase. is currently being treated for bronchitis. [place] PCP: ======= LEV OCONNELL VITAL SIGNS: Blood Pressure: 118/68 (05/30/2023 08:33) Pain: 0 (05/30/2023 08:33) Patient Height: 67 in [170.2 cm] (03/01/2019 13:42) Patient Weight: 237 lb [107.50 kg] (03/06/2023 09:03) Pulse: 75 (05/30/2023 08:33) Respiration: 18 (05/30/2023 08:33) Temperature: 97.3 F [36.3 C] (05/30/2023 08:33) REVIEW OF SYSTEMS: see HPI PHYSICAL EXAMINATION: General: Well-appearing Pool in no obvious distress. Mental Status: Alert and oriented x4. Head: Mild tenderness frontal and maxillary sinuses with palpation Eyes: PERRL. EOMI. Anicteric sclerae. ENT: TM and ear canals normal bilaterally. + nasal congestion and clear rhinorrhea. Moist oral mucosa. Posterior pharynx unremarkable. Neck: Supple. No lymphadenopathy. Lungs: CTAB, no wheezing, rhonchi or rales. Normal chest excursion. Eupneic respirations. MANAGER LAUNDRY cough with deep inspiration CV: Heart tones S1, S2. RRR. No M/G/R. GI: Abdomen is soft and nontender. Psych: Normal mood and affect. Normal judgment. Cooperative with exam, follows commands. ASSESSMENT/PLAN: 1. URI - continue Flonase, ok to continue Delsym at HS. ATB ordered along with cough suppressant with decongestant. Stay well hydrated. 2. LRI - see above. MEDICATIONS reviewed with FOLLOW UP: Return to clinic 3-5 days if no improvement in symptoms. UPCOMING APPOINTMENTS: No data available /bienvenido/ KATHERNIE YA CERTIFIED NURSE PRACTITIONER Signed: 05/30/2023 14:50 [place]
--- OUTSIDE RECORDS SUMMARY | 2024-02-17 09:31 | XMS_ITS | Encounter Summary ---
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 [facility] Address [address] [place] [address] Care Team Providers Care Electrical Engineering Designer Name Role Phone LEV OCONNELL Primary Care [...] ORGANIZAT ION (PPO) FED EMPLO [facility] Jan 26, 2020 [id number] ELIZABETH SMILEY JR PATIENT AET[employer] PREFERRED PROVIDER ORGANIZAT ION (PPO) DWAYNE AL EMPLO [facility] Feb 25, 2016 [id number] ELIZABETH SMILEY JR PATIENT AETNA PREFERRED PROVIDER ORGANIZAT ION (PPO) DWAYNE AL EMPL [facility] Feb 25, 2016 [id number] ELIZABETH SMILEY JR PATIENT AETNA PREFERRED PROVIDER ORGANIZAT ION (PPO) DWAYNE AL EMPL [facility] Feb 25, 2016 [id number] ELIZABETH SMILEY PATIENT AETNA PREFERRED PROVIDER ORGANIZAT ION (PPO) DWAYNE AL MIO MIMI [facility]OO[facility] Feb 24, 2016 [id number] ELIZABETH SMILEY PATIENT AETNA PHARMACY MANAGEMENT PRESCRIPT ION DWAYNE AL EMPLO MIMI Jan 26, 2020 [id number] ELIZABETH SMILEY JR PATIENT [employer]ETNA PHARMACY MANAGEMENT PRESCRIPT ION DAIANA Feb 25, 2016 [id number] ELIZABETH SMILEY PATIENT AETNA PHARMACY MANAGEMENT PRESCRIPT ION DWAYNE AL EMPLO MIMI Feb 25, 2016 [id number] ELIZABETH SMILEY PATIENT AETNA RX PRESCRIPT ION DWAYNE AL EMPLO MIMI Feb 25, 2016 [id number] ELIZABETH SMILEY PATIENT AETNA RX [facility]CRIPT [facility] Feb 25, 2016 [id number] ELIZABETH SMILEY JR PATIENT [employer] POINT OF SERVICE TYCO Mar 20, 2002 [id number] ELIZABETH SMILEY PATIENT CIGNA* POINT OF SERVICE Mar 20, 2002 [id number] ELIZABETH SMILEY PATIENT Selected Encounter This section includes the information on record at [place] for the Encounter. Date/Time Encounter Type Encounter Description Reason Pro vider Source May 27, 2023 11:17 AM Outpatient Encounter PRIMARY CARE/MEDICINE I[facility] Encounter [...] 2023 08:00 AM AM[facility]ULATORY [facility]ICINE [facility] May 30, 2023 08:15 AM [facility]ORY [facility]ICINE [facility] Jun 04, 2023 04:00 PM AM[facility] [place] [facility] June 24, 2023 03:00 PM AMBULATORY - NONE [facility] [place] [facility] Aug 08, 2023 03:00 PM AMBULATORY - [place]ICINE [place] [facility] [place] [facility] Aug 13, 2023 03:10 PM AMBULATORY - MEDICINE [facility] [place] [facility] Sep 04, 2023 01:30 PM AMBULATORY - MEDICINE [facility] Sep 29, 2023 02:30 PM AMBULATORY - NONE [facility] [place] [facility] Nov 26, 2023 10:00 AM AMBULATORY - [place]ICINE [place] [facility] [place] [facility] Lab Results: +/- 30 days of the encounter This section includes the Chemistry and Hematology Lab Results on record with [place] for the patient. Radiology Reports and Pathology Reports are provided separately, in subsequent sections. Lab Results This section contains the Chemistry/Hematology Results that were resulted 30 days before or 30 daysafter the date of the Encounter. Date/Time Source Result Type Result - Unit Interpretation Reference Range Comment June 18, 2023 07:38 AM [facility] THYRO[facility] T4 FREE(FT4) (WROX) Specimen Type: SERUM No comment entered. Ordering Provider: LEV LIZAMA Report Released Date/Time: Jun 16, 2023 11:42 AM Reporting Lab[facility] [address] [facility] [address] Performing Lab: [place] [facility] [address] [facility] [address] THYROID T4 FREE(FT4) (WROX) 1.50 ng/dL 0.6-1.6 June 18, 2023 07:38 AM [facility] HEMOGLOBIN A1C PANEL Specimen Type: BLOOD [...] Jun 16, 2023 11:42 AM Reporting Lab: [facility] [address] [facility] [address] Performing Lab: [address] [address] HEMOGLOBIN A1C 7.4 H 4.0-5.6 June 18, 2023 07:38 AM [facility] TSH Specimen Type: SERUM No comment entered. Ordering Provider: LEV LIZAMA Report Released Date/Time: Jun 16, 2023 11:42 AM Reporting [facility] [address] [address] Performing Lab: [facility] [address] TSH 0.33 u[IU]/mL L 0.35-5.00 Social History: [...] 18, 2023 02:31 PM VA-TOBACCO FOR[facility]ER [facility] Tobacco Use History This section includes a history of the smoking, or tobacco-related health factors, that were collected on or before the date of the Encounter. The data comes from the [place] facility where the Encounter took place. Date/Time Smoking Status/Tobacco Use Comment F acroger Feb 18, 2023 02:31 PM VA-TOBACCO QUIT 15 YRS OR MORE [facility] [place] [facility] Dec 31, 2021 01:00 PM VA-TOBACCO FORMER USER [facility] [place] [facility] Dec 31, 2021 01:00 PM VA-TOBACCO QUIT 15 YRS OR MORE [facility] Advance Directives: All historical and current Section [...] Provider Source July 02, 2022 ADVANCE DIRECTIVE CECILIAKEODIONE [facility] [place] Aug 07, 2021 ADVANCE DIRECTIVE RADHA SAHA [facility] Nov 28, 2020 ADVANCE DIRECTIVE GOLDIE DUTTA [facility] Encounter Notes: All associated encounter notes This section contains the clinical notes associated to the Encounter. Date/Time Encounter Note(s) Provider Source May 27, 2023 11:17 AM MEDICATION MGT NOT E: LOCAL TITLE: OUTPATIENT MEDICATION REQUEST STANDARD TITLE: MEDICATION MGT NOTE DATE OF NOTE: MAY 27, 2023@11:17 ENTRY DATE: MAY 27, 2023@11:17:17 AUTHOR: MASSIEL SHAY EXP COSIGNER: URGENCY: STATUS: COMPLETED MAIL AMLODIPINE BESYLATE 5MG TAB Last Filled: 02/24/23 Collection DT Spec WBC HGB HCT PLT K+/Pot Sodium HGBA1c 02/21/2023 07:49 BLOOD 7.0 H 02/21/2023 07:49 BLOOD 6.00 12.8 38.8 L 222 02/21/2023 07:49 SERUM 4.8 140 11/28/2022 10:27 BLOOD 5.45 13.6 41.1 242 11/28/2022 10:27 SERUM 5.1 H 139 Collection DT Spec GLUCOSE CREATIN AST ALT T BILI ALK SHI CHOL 02/21/2023 07:49 SERUM 155 H 2.19 H 10 15 0.3 49 181 11/28/2022 10:27 SERUM 152 H 2.26 H 06/24/2022 07:32 SERUM 216 H 2.43 H 9 14 0.2 40 157 12/26/2021 07:38 SERUM 160 H 2.22 H 11 19 0.3 47 166 11/28/2020 08:48 SERUM 137 H 1.60 H /bienvenido/ RIMMA LOPES,RN-BC REGISTERED NURSE (RN) Signed: 05/27/2023 11:18 Receipt Acknowledged By: 05/27/2023 11:36 /es/ LEV OCONNELL MD PHYSICIAN MASSIEL SHAY
--- OUTSIDE RECORDS SUMMARY | 2024-02-17 09:31 | XMS_ITS | Encounter Summary ---
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 [place] Organization [facility] [place] Address [address] [place] [address] Care Team Providers Care Bingo Floater Name Role Phone LEV OCONNELL Primary Care [...] Policy Prasad's Name Patient's Relationship to Policy Praasd [employer] PREFERRED PROVIDER ORGANIZAT ION (PPO) FED EMPLO YEES Jan 26, 2020 [id number] ELIZABETH SMILEY JR PATIENT AETNA PREFERRED PROVIDER ORGANIZAT ION (PPO) DWAYNE [place] EMPL [facility] Feb 25, 2016 [id number] ELIZABETH SMILEY JR PATIENT AETNA PREFERRED PROVIDER ORGANIZAT ION (PPO) DWAYNE AL EMPL [facility] Feb 25, 2016 [id number] ELIZABETH SMILEY PATIENT AETNA PREFERRED PROVIDER ORGANIZAT ION (PPO) DWAYNE AL EMPLO YE Feb 25, 2016 [id number] BALJITELIZABETH SCANLON JR PATIENT AETNA PREFERRED PROVIDER ORGANIZAT ION (PPO) DWAYNE SILVA Feb 24, 2016 [id number] ELIZABETH SMILEY PATIENT AETNA PHARMACY MANAGEMENT PRESCRIPT ION DWAYNE SILVA Jan 26, 2020 [id number] ELIZABETH SMILEY JR PATIENT [employer]NA PHARMACY MANAGEMENT PRESCRIPT ION DAIANA Feb 25, 2016 [id number] ELIZABETH SMILEY PATIENT [employer]ETNA PHARMACY MANAGEMENT PRESCRIPT ION DWAYNE PIERCE Feb 25, 2016 [id number] ELIZABETH SMILEY PATIENT AETNA RX PRESCRIPT ION DWAYNE SILVA Feb 25, 2016 [id number] ELIZABETH SMILEY PATIENT AETNA RX PRESCRIPT ION [facility] Feb 25, 2016 [id number] ELIZABETH SMILEY JR PATIENT [employer] POINT OF SERVICE TYCO Mar 20, 2002 [id number] ELIZABETH SMILEY PATIENT [employer]IG[employer]* POINT OF SERVICE Mar 20, 2002 [id number] ELIZABETH SMILEY PATIENT Selected Encounter This section includes the information on record at [place] for the Encounter. Date/Time Encounter Type Encounter Description Reason Pro vider Source Feb 27, 2023 12:00 AM Outpatient Encounter COMMUNITY CARE CONSULT IHE Encounter Template Text not used by [place] Plan of Treatment: Future Appointments (+ 6 months) and Future Tests (+/- 45 days) The Plan of Treatment section includes future care activities for the patient from all [place] treatmentfacilities. This section includes future appointments and future orders which are active, pending or scheduled. Future Appointments This section includes appointments that were scheduled to occur 6 months from the date of the Encounter, up to a maximum of 20 appointments. The data comes from all [place] treatment facilities. Appointment Date/Time Appointment Type Appointme nt Facility Name Mar 06, 2023 09:00 AM AMBULATORY - MEDICINE [facility] Mar 11, 2023 02:00 PM AMBULATORY - PSYCHIATRY [facility] Mar 19, 2023 01:30 PM AMBULATORY - PSYCHIATRY [facility] May 30, 2023 08:00 AM AMBULATORY - MEDICINE [facility] May 30, 2023 08:15 AM AMBULATORY - MEDICINE [facility] Jun 04, 2023 04:00 PM AMBULATORY - MEDICINE [place] [facility] [facility] June 24, 2023 03:00 PM AMBULATORY - NONE [facility] [place] [facility] Aug 08, 2023 03:00 PM AMBULATORY - MEDICINE [place] [facility] [place] [facility] Aug 13, 2023 03:10 PM AMBULATORY - MEDICINE [place] [facility] [place] [facility] Lab Results: +/- 30 days of the encounter This section includes the Chemistry and Hematology Lab Results on record with [place] for the patient. Radiology Reports and Pathology Reports are provided separately, in subsequent sections. Lab Results This section contains the Chemistry/Hematology Results that were resulted 30 days before or 30 daysafter the date of the Encounter. Date/Time Source Result Type Result - Unit Interpretation Reference Range Comment Feb 21, 2023 07:49 AM [facility] BASIC METABOLIC PANEL (fasting) Specime n Type: SERUM No comment entered. Ordering Provider: LEV LIZAMA Report Released Date/Time: Feb 18, 2023 02:37 PM Reporting Lab: [facility] [address] [facility] [address] Performing Lab: [address] [address] UREA NITROGEN 47 mg/dL H 7-25 GLUCOSE 155 mg/dL H 65-100 SODIUM 140 mmol/L 135-145 POTASSIUM 4.8 mmol/L 3.5-5.0 CHLORIDE 106 mmol/L 100-110 CO2 26 meq/L 20-30 CREATININE, Serum 2.19 mg/dL H 0.50-1.40 eGFR(CKD-EPI 2020) 33 mL/min L >60 Feb 21, 2023 07:49 AM [facility] HEMOGLOBIN A1C PANEL Specimen Type: BLOOD Comment: [...] Feb 18, 2023 02:37 PM Reporting Lab: [address] [address] Performing Lab: [address] [address] HEMOGLOBIN A1C 7.0 H 4.0-5.6 Feb 21, 2023 07:49 AM [facility] LIPID PANEL FASTING Specimen Type: SERUM No comment entered. Ordering Provider: LEV LIZAMA Report Released Date/Time: Feb 18, 2023 02:37 PM Reporting Lab: [address] [address] Performing Lab: [address] [address] CHOLESTEROL 181 mg/dL TRIGLYCERIDE 244 mg/dL H 0-150 LDL calculated 105 mg/dL 0-129 CHOL/HDL 6.7 HDL CHOLESTEROL 27 mg/dL L 40-60 Feb 21, 2023 07:49 AM [facility] LIVER FUNCTION Specimen Type: SERUM No comment entered. Ordering Provider: LVE LIZAMA Report Released Date/Time: Feb 18, 2023 02:37 PM Reporting Lab: [address] [address] Performing Lab: [address] [address] PROTEIN,TOTAL 6.1 g/dL 6.0-8.3 ALBUMIN 3.8 g/dL 3.5-5.0 ALKALINE PHOSPHATASE 49 U/L 40-150 AST 10 U/L 5-34 ALT 15 U/L BILIRUBIN, TOTAL 0.3 mg/dL 0.2-1.2 Feb 21, 2023 07:49 AM [facility] TSH Specimen Type: SERUM No comment entered. Ordering Provider: LEV LIZAMA Report Released Date/Time: Feb 18, 2023 02:37 PM Reporting Lab[facility] [address] [facility] [facility] [address] Performing Lab: [facility] [address] TSH 0.69 u[IU]/mL 0.35-5.00 Feb 21, 2023 07:49 AM [facility] CBC AND DIFF (AUTO) Specimen Type: BLOOD No comment entered. Ordering Provider: LEV LIZAMA Report Released Date/Time: Feb 18, 2023 02:37 PM Reporting Lab: [facility] [address] [facility] [facility] [address] Performing Lab: [facility] [address] [address] WBC 6.00 10*3/uL 4.50-11.00 RBC 4.32 10*6/uL 4.23-5.66 HGB 12.8 g/dL 12.8-17 HCT 38.8 L 39.2-50.4 MCV 89.8 fL 82-99 MCHC 33.0 g/dL 30.8-35.1 PLT 222 10*3/uL 140-360 RDW-CV 12.4 12.0-16.0 Crosby, Abs 0.56 10*3/uL 0.30-1.10 MCH 29.6 pg 26.2-32.6 Neut % 70.5 43.7-75.8 Lymph % 16.2 14.0-42.3 Crosby % 9.3 5.1-13.7 Eos % 3.2 0.4-6.8 [...] and tobacco- related health factors from the [place] facility where the Encounter took place. Current Smoking Status This section includes the most current smoking, or tobacco-related health factor, from the [place] facility where the Encounter took place. Date/Time Current Smoking Status Comment Corina ity Feb 18, 2023 02:31 PM [place]-TOBACCO QUIT 15 YRS OR MORE [facility] Tobacco Use History This section includes a history of the smoking, or tobacco-related health factors, that were collected on or before the date of the Encounter. The data comes from the [place] facility where the Encounter took place. Date/Time Smoking Status/Tobacco Use Comment F acility Feb 18, 2023 02:31 PM [place]-TOBACCO QUIT 15 YRS OR MORE [facility] Dec 31, 2021 01:00 PM [place]-TOBACCO FORMER USER [facility] Dec 31, 2021 01:00 PM [place]-TOBACCO QUIT 15 YRS OR MORE [facility] Advance Directives: All historical and current Section Date Range: From patient's date of to the date document was created. This section includes ALL of a patient's completed or amended [place] Advance and Rescinded Directives. The entries below indicate that a directive exists for the patient, but an actual copy is not included with this document. The data comes from all [place] facilities. Date Advance Directives Provider Source July 02, 2022 ADVANCE DIRECTIVE SANDRA BROOKS [facility] Aug 07, 2021 ADVANCE DIRECTIVE RADHA SAHA [facility] Nov 28, 2020 ADVANCE DIRECTIVE GOLDIE DUTTA [facility] Encounter Notes: All associated encounter notes This section contains the clinical notes associated to the Encounter. Date/Time Encounter Note(s) Provider Source Feb 27, 2023 12:00 AM NONVA CONSULT: LOCAL TITLE: COMMUNITY CARE-CONSULT RESULT NOTE STANDARD TITLE: NONVA CONSULT DATE OF NOTE: FEB 27, 2023 ENTRY DATE: MAY 23, 2023@08:58:50 AUTHOR: DURGA CROWELL EXP COSIGNER: URGENCY: STATUS: COMPLETED VistA Imaging - Scanned Document SCANNED DOCUMENT SIGNATURE NOT REQUIRED Electronically Filed: 05/23/2023 by: DURGA AVILES [facility]
--- OUTSIDE RECORDS SUMMARY | 2024-02-17 09:31 | XMS_ITS | Encounter Summary ---
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 [place] Address [address] [place] [address] Care Team Providers Care Driver Manager Name Role Phone LEV OCONNELL Primary Care [...] (PPO) FED EMPLO YE Jan 26, 2020 [id number] ELIZABETH SMILEY JR PATIENT AETNA PREFERRED PROVIDER ORGANIZAT ION (PPO) DWAYNE [place] EMPLO [place] Feb 25, 2016 [id number] [phone] ELIZABETH SMILEY JR PATIENT AETNA PREFERRED PROVIDER ORGANIZAT ION (PPO) DWAYNE AL EMPL [facility] Feb 25, 2016 [id number] ELIZABETH SMILEY JR PATIENT AETNA PREFERRED PROVIDER ORGANIZAT ION (PPO) DW[place] EMPL [facility] Feb 25, 2016 [id number] ELIZABETH SMILEY PATIENT AETNA PREFERRED PROVIDER ORGANIZAT ION (PPO) DWAYNE AL EMPLO MIMI [facility] Feb 24, 2016 [id number] ELIZABETH SMILEY PATIENT AETNA PHARMACY MANAGEMENT PRESCRIPT ION DWAYNE AL EMPLO MIMI COO[place] Jan 26, 2020 [id number] ELIZABETH SMILEY JR PATIENT AETNA PHARMACY MANAGEMENT PRESCRIPT ION DAIANA Feb 25, 2016 [id number] ELIZABETH SMILEY PATIENT AETNA PHARMACY MANAGEMENT PRESCRIPT ION DWAYNE AL EMPLO MIMI Feb 25, 2016 [id number] ELIZABETH SMILEY PATIENT AETNA RX PRESCRIPT ION DWAYNE AL EMPLO MIMI Feb 25, 2016 [id number] ELIZABETH SMILEY PATIENT AETNA RX PRESCRIPT ION [facility] Feb 25, 2016 [id number] BALJIT BELCHERELIZABETH PATIENT [employer]IGNA POINT OF SERVICE TYCO Mar 20, 2002 [id number] ELIZABETH SMILEY PATIENT CIGNA* POINT OF SERVICE Mar 20, 2002 [id number] BALJIT ELIZABETH PATIENT Selected Encounter This section includes the information on record at [place] for the Encounter. Date/Time Encounter Type Encounter Description Reason Pro vider Source May 29, 2023 09:43 AM Outpatient Encounter ADMIN PAT ACTIVTIES (MASNONCT) IHE Encounter Template Text not used by [place] Plan of Treatment: Future Appointments (+ 6 months) and Future Tests (+/- 45 days) The Plan of Treatment section includes future care activities for the patient from all [place] treatmentfacilities. This section includes future appointments and future orders which are active, pending or scheduled. Future Appointments This section includes appointments that were scheduled to occur 6 months from the date of the Encounter, up to a maximum of 20 appointments. The data comes from all [place] treatment facilities. Appointment Date/Time Appointment Type Appointme nt Facility Name May 30, 2023 08:00 AM [facility]ULATORY - [facility]ICINE [facility] May 30, 2023 08:15 AM [facility] Jun 04, 2023 04:00 PM [facility]ICINE [facility] [place] [facility] June 24, 2023 03:00 PM AMBULATORY - NONE [facility] [place] [facility] Aug 08, 2023 03:00 PM AMBULATORY - MEDICINE [facility] [place] [facility] Aug 13, 2023 03:10 PM AMBULATORY - MEDICINE [facility] [place] [facility] Sep 04, 2023 01:30 PM AMBULATORY - MEDICINE [facility] Sep 29, 2023 02:30 PM AMBULATORY - NONE [facility] [place] [facility] Nov 26, 2023 10:00 AM AMBULATORY - MEDICINE [facility] [place] [facility] Nov 28, 2023 07:35 PM AMBULATORY - MEDICINE [place] [facility] [place] [facility] Lab Results: +/- 30 days of the encounter This section includes the Chemistry and Hematology Lab Results on record with [place] for the patient. Radiology Reports and Pathology Reports are provided separately, in subsequent sections. Lab Results This section contains the Chemistry/Hematology Results that were resulted 30 days before or 30 daysafter the date of the Encounter. Date/Time Source Result Type Result - Unit Interpretation Reference Range Comment June 18, 2023 07:38 AM [place] [facility] [place] [facility] THYROID T4 FREE(FT4) (WROX) Specimen Type: SERUM No comment entered. Ordering Provider: LEV LIZAMA Report Released Date/Time: Jun 16, 2023 11:42 AM Reporting Lab: [place] [facility] [place] [facility] [address] [facility] [address] Performing Lab: [place] [facility] [place] [facility] [address] [facility] [facility] [address] THYROID T4 FREE(FT4) (WROX) 1.50 ng/dL 0.6-1.6 June 18, 2023 07:38 AM [place] [facility] [place] [facility] HEMOGLOBIN A1C PANEL Specimen Type: BLOOD [...] Jun 16, 2023 11:42 AM Reporting Lab: [place] [facility] [place] [address] [address] Performing Lab: [place] [facility] [place] [address] [address] HEMOGLOBIN A1C 7.4 H 4.0-5.6 June 18, 2023 07:38 AM [place] [facility] [place] [facility] TSH Specimen Type: SERUM No comment entered. Ordering Provider: LEV LIZAMA Report Released Date/Time: Jun 16, 2023 11:42 AM Reporting Lab: [place] [facility] [place] [address] [address] Performing Lab: [place] [facility] [place] [address] [address] TSH 0.33 u[IU]/mL L 0.35-5.00 Social History: Smoking Status (Most current) and Tobacco Use (All prior to encounter date) This section includes the most current, and the historical, smoking and tobacco- related health factors from the [place] facility where the Encounter took place. Current Smoking Status This section includes the most current smoking, or tobacco-related health factor, from the [place] facility where the Encounter took place. Date/Time Current Smoking Status Comment Corina ity Feb 18, 2023 02:31 PM VA-TOBACCO FORMER USER [place] [facility] [place] [facility] Tobacco Use History This section includes a history of the smoking, or tobacco-related health factors, that were collected on or before the date of the Encounter. The data comes from the [place] facility where the Encounter took place. Date/Time Smoking Status/Tobacco Use Comment F acroger Feb 18, 2023 02:31 PM VA-TOBACCO QUIT 15 YRS OR MORE [place] [facility] [place] [facility] Dec 31, 2021 01:00 PM VA-TOBACCO FORMER USER [place] [facility] Dec 31, 2021 01:00 PM [facility]CO [facility] Advance Directives: All historical and current Section Date Range: From patient's date of to the date document was created. This section includes ALL of a patient's completed or amended [place] Advance and Rescinded Directives. The entries below indicate that a directive exists for the patient, but an actual copy is not included with this document. The data comes from all [place] facilities. Date Advance Directives Provider Source July 02, 2022 ADVANCE DIRECTIVE SANDRA BROOKS [facility] Aug 07, 2021 ADVANCE DIRECTIVE SA[facility]ARADHA [facility] Nov 28, 2020 ADVANCE DIRECTIVE GOLDIE DUTTA [facility] Encounter Notes: All associated encounter notes This section contains the clinical notes associated to the Encounter. Date/Time Encounter Note(s) Provider Source May 29, 2023 09:43 AM ADMINISTRATIVE NOT E: LOCAL TITLE: [facility]: SCHEDULING ADMINISTRATION STANDARD TITLE: ADMINISTRATIVE NOTE DATE OF NOTE: MAY 29, 2023@09:43:13 ENTRY DATE: MAY 29, 2023@09:43:13 AUTHOR: JASON VIVAS EXP COSIGNER: URGENCY: STATUS: COMPLETED Patient Demographics Patient Name: ELIZABETH SMILEY Patient Primary Phone: [phone] Patient Primary Address: [address] [place] [id number] Patient : 1960 Patient Age: 63 Call Back Number: [phone] Caller/Recipient Relation to Patient: Self Scheduling Scheduling Note Comments: Reference [facility] triage note 05/29/2023 FYI: PATIENT: Baljit [id number] Per [facility] bogger operator recommendations, the patient is to be seen within 3 days as a face to face w/PCP. The patient c/o SOB and upper repertory infection. This machine sign writer was unable to locate an open appointment slot. Please contact the patient to assist. Thank you Administrative Administrative Note Reason: Other Administrative Note Comments: pact /es/ JASON AGUDELO [facility] AMSA Signed: 05/29/2023 09:43 Receipt Acknowledged By: 05/29/2023 09:56 /es/ KATRINA LOPESN,RN-BC REGISTERED NURSE (RN) for NGUYEN NEFF 05/30/2023 09:41 /es/ MOR TREVIÑO LPN, [facility]
--- OUTSIDE RECORDS SUMMARY | 2024-02-17 09:31 | XMS_ITS | Encounter Summary ---
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 [place] [facility] [place] [facility] [place] Address [address] [place] [address] Care Team Providers Care Ceiling Cleaner Name Role Phone LEV OCONNELL Primary Care [...] PREFERRED PROVIDER ORGANIZAT ION (PPO) FED EMPLO [facility] Jan 26, 2020 [id number] ELIZABETH SMILEY JR PATIENT [employer] PREFERRED PROVIDER ORGANIZAT ION (PPO) DWAYNE AL EMPLO [facility] Feb 25, 2016 [id number] ELIZABETH SMILEY JR PATIENT [employer] PREFERRED PROVIDER ORGANIZAT ION (PPO) DWAYNE AL EMPL [facility] Feb 25, 2016 [id number] [phone] ELIZABETH SMILEY JR PATIENT [employer] PREFERRED PROVIDER ORGANIZAT ION (PPO) [facility] EMPL [facility] Feb 25, 2016 [id number] ELIZABETH SMILEY PATIENT [employer] PREFERRED PROVIDER ORGANIZAT ION (PPO) DW[place]NE AL EMPLO [facility] Feb 24, 2016 [id number] ELIZABETH SMILEY PATIENT [employer] PHARMACY MANAGEMENT PRESCRIPT ION [place]NE AL EMPLO [facility] Jan 26, 2020 [id number] ELIZABETH SMILEY JR PATIENT [employer] PHARMACY MANAGEMENT PRESCRIPT ION DAIANA Feb 25, 2016 [id number] ELIZABETH SMILEY PATIENT [employer] PHARMACY MANAGEMENT PRESCRIPT ION [place] AL EMPLO MIMI Feb 25, 2016 [id number] ELIZABETH SMILEY PATIENT [employer] RX PRESCRIPT ION [place] EM[facility]O [facility] Feb 25, 2016 [id number] ELIZABETH SMILEY PATIENT [employer] RX PRESCRIPT ION FEP Feb 25, 2016 [id number] ELIZABETH SMILEY JR PATIENT [employer] POINT OF SERVICE [employer] Mar 20, 2002 [id number] ELIZABETH SMILEY PATIENT [employer]* POINT OF SERVICE Mar 20, 2002 [id number] ELIZABETH SMILEY PATIENT Selected Encounter This section includes the information on record at [place] for the Encounter. Date/Time Encounter Type Encounter Description Reason Provider Source May 30, 2023 08:00 AM OFF/OP EST JUNE X REQ PHY/QHP PRIMARY CARE/MEDICINE ICD-10-CM R05.9 Cough, unspecified SAMPSON GARCIA Kendall Encounter Template Text not used by [place] Assessments - Encounter Diagnoses This section includes the primary and secondary diagnoses documented for the Encounter. Date/Time Primary/Secondary Diagnosis Diagnosis Name Provider Source June 20, 2023 11:31 AM PRIMARY Cough, unspecified SAMPSON GARCIA June 20, 2023 11:31 AM SECONDARY Other fatigue SAMPSON GARCIA Plan of Treatment: Future Appointments (+ 6 months) and Future Tests (+/- 45 days) The Plan of Treatment section includes future care activities for the patient from all [place] [facility] [place] [facility]. This section includes future appointments and future [...] - MEDICINE [place] [facility] [place] [facility] June 24, 2023 03:00 PM AMBULATORY - NONE [place] [facility] [place] [facility] Aug 08, 2023 03:00 PM AMBULATORY - [place]ICINE [place] [facility] [place] [facility] Aug 13, 2023 03:10 PM AMBULATORY - [place]ICINE [place] [facility] [place] [facility] Sep 04, 2023 01:30 PM AMBULATORY - MEDICINE [facility] Sep 29, 2023 02:30 PM AMBULATORY - NONE [place] [facility] [place] [facility] Nov 26, 2023 10:00 AM AMBULATORY - [place]ICINE [place] [facility] [place] [facility] Nov 28, 2023 07:35 PM AMBULATORY - [place]ICINE [place] [facility] [place] [facility] Lab Results: +/- 30 days of [...] Range Comment June 18, 2023 07:38 [facility] THYROID T4 FREE(FT4) (WROX) Specimen Type: SERUM No comment entered. Ordering Provider: LEV LIZAMA Report Released Date/Time: Jun 16, 2023 11:42 AM Reporting Lab: [facility] [address] [facility] [address] Performing Lab: [facility] [address] [facility] [address] THYROID T4 FREE(FT4) (WROX) 1.50 ng/dL 0.6-1.6 June 18, 2023 07:38 AM [facility] HEMOGLOBIN A1C PANEL Specimen Type: BLOOD [...] Jun 16, 2023 11:42 AM Reporting Lab: [address] [address] Performing Lab: [address] [address] HEMOGLOBIN A1C 7.4 H 4.0-5.6 June 18, 2023 07:38 AM [facility] TSH Specimen Type: SERUM No comment entered. Ordering Provider: LEV LIZAMA Report Released Date/Time: Jun 16, 2023 11:42 AM Reporting Lab: [address] [address] Performing Lab: [address] [address] TSH 0.33 u[IU]/mL L 0.35-5.00 Vital Signs: [...] place. Date/Time Current Smoking Status Comment Facil [facility]ior[facility] Jan 08, 2021 01:30 PM VA-TOBACCO FORMER USER [facility] Tobacco Use History This section includes a history of the smoking, or tobacco-related health factors, that were collected on or before the date of the Encounter. The data comes from the [place] facility where the Encounter took place. Date/Time Smoking Status/Tobacco Use Comment F acility Jan 08, 2021 01:30 PM VA-TOBACCO QUIT 15 YRS OR MORE [facility] Jun 10, 2019 09:30 AM VA-TOBACCO FORMER USER [facility] Jun 10, 2019 09:30 AM VA-TOBACCO QUIT 15 YRS OR MORE [facility] Dec 04, 2017 11:51 AM VA-TOBACCO FORMER USER [facility] Dec 04, 2017 11:51 AM VA-TOBACCO QUIT 15 YRS OR MORE [facility] May 19, 2017 02:36 PM QUIT TOBACCO USE > 7 YEARS AGO [facility] May 15, 2016 10:07 AM QUIT TOBACCO USE > 7 YEARS AGO reports quitting 27 years ago [facility] Mar 21, 2015 02:13 PM QUIT TOBACCO USE > 7 YEARS AGO quit 04/11/1989, smoker 3 ppd x 10 yrs [facility] Oct 20, 2003 03:02 PM HISTORY OF SMOKING stopped tobacco 14 years ago [facility] Sep 14, 2002 09:25 AM HISTORY OF SMOKING quit 13 years ago [facility] Nov 25, 2001 10:54 AM QUIT TOBACCO USE > 7 YEARS AGO quit [facility] Sep 15, 2001 10:23 AM HISTORY OF SMOKING quit 12 years ago 04/11/1989 [facility] Advance Directives: All historical and current Section Date Range: From patient's date of to the date document was created. This section includes ALL of a patient's completed or amended [place] Advance and Rescinded Directives. The entries below indicate that a directive exists for the patient, but an actual copy is not included with this document. The data comes from all [facility]. Date Advance Directives Provider Source July 02, 2022 ADVANCE DIRECTIVE SANDRA BROOKS [facility] Aug 07, 2021 ADVANCE DIRECTIVE RADHA SAHA [facility] Nov 28, 2020 ADVANCE DIRECTIVE GOLDIE DUTTA [facility] Encounter Notes: All associated encounter notes This section contains the clinical notes associated to the Encounter. Date/Time Encounter Note(s) Provider Source July 03, 2023 12:21 PM ACCOUNTING OF DISC LOSURES NOTE: LOCAL TITLE: STATE PRESCRIPTION DRUG MONITORING PROGRAM STANDARD TITLE: ACCOUNTING OF DISCLOSURES NOTE DATE OF NOTE: JULY 03, 2023@12:21:14 ENTRY DATE: JULY 03, 2023@12:21:14 AUTHOR: Adriane OCONNELL COSIGNER: URGENCY: STATUS: COMPLETED This PDMP query was submitted by Lev Oconnell The clinical justification for this PDMP query is to review controlled substances prescribed outside of the [facility], and any additional information that may become available, as an important component of standard clinical care, and in accordance with [facility] policy. Patient information was shared with the PDMP [place]. No prescription(s) for controlled substances outside the [facility] were found in the last 90 days. /bienvenido/ LEV OCONNELL MD PHYSICIAN Signed: 07/03/2023 12:21 Adriane OCONNELL July 03, 2023 09:22 AM MEDICATION MGT NOT E: LOCAL TITLE: OUTPATIENT MEDICATION REQUEST STANDARD TITLE: MEDICATION MGT NOTE DATE OF NOTE: JULY 03, 2023@09:22 ENTRY DATE: JULY 03, 2023@09:22:19 AUTHOR: NGUYEN NEFF COSIGNER: URGENCY: STATUS: COMPLETED Medication Request Date of Request: June CLONAZEPAM TAB 0.5MG TAKE ONE TABLET BY MOUTH THREE TIMES A DAY Quantity: 90 Refills: 5 Indication: MUSCLE CRAMPS 07/03/2023 is here today for his medication Clonazepam 0.5mg, states the neurologist Henri Ramos is retired and is requesting that primary care renew this prescription. Requests for WINDOW /bienvenido/ NGUYEN NEFF RN REGISTERED NURSE Signed: 07/03/2023 09:24 Receipt Acknowledged By: 07/03/2023 12:21 /bashir OCONNELL MD PHYSICIAN GNUYEN NEFF July 01, 2023 03:44 PM ADDENDUM: LOCAL TITLE: Addendum STANDARD TITLE: ADDENDUM DATE OF NOTE: JULY 01, 2023@15:44:04 ENTRY DATE: JULY 01, 2023@15:44:05 AUTHOR: TERI GUERRERO EXP COSIGNER: URGENCY: STATUS: COMPLETED Correction: [place] picked up RX for semaglutide 0.5mg once weekly. He informed pharmacy he is actually waiting for the 1mg dose. Chart reviewed; he has been on the 0.5mg once weekly for at least 4 weeks. His non-VA endocrine is recommending dose increase to 1mg. This is reasonable. Will change RX to semaglutide 1mg once weekly (1 pen, 28 days with no refills). Originally, singer songwriter suggested rescheduling f/u with [facility], Dr. Manrique. Pt notes he is seeing non-VA endocrine for both thyroid and diabetes. He does not want any other diabetes management. He notes all records from non-VA endocrine were sent from Dr. Marie's office including RX for semaglutide 1mg. Pt requesting PCP please order: semaglutide 1mg once weekly with refills. Thank you. /bienvenido/ Teri Guerrero PharmD Clinical Pharmacy Practitioner Signed: 07/01/2023 15:45 Receipt Acknowledged By: 07/02/2023 14:20 /bienvenido/ STEVEN DIAL RN REGISTERED NURSE for NGUYEN NEFF 07/02/2023 08:55 /bienvenido/ LEV OCONNELL MD PHYSICIAN --- Original Document --- 07/01/23 OUTPATIENT MEDICATION REQUEST: Medication Request Date of Request: June SEMAGLUTIDE (OZEMPIC) PA-F INJ,SOLN SEMAGLUTIDE 0.25MG/0.375ML INJ PEN 3ML INJECT 0.5MG SUBCUTANEOUSLY ONCE A WEEK Quantity: 1 Refills: 3 Indication: FOR TYPE 2 DIABETES MELLITUS Requests for SIRI /bienvenido/ NGUYEN NEFF RN REGISTERED NURSE Signed: 07/01/2023 13:51 Receipt Acknowledged By: 07/02/2023 08:54 /bienvenido/ LEV OCONNELL MD PHYSICIAN 07/01/2023 ADDENDUM STATUS: COMPLETED picked up RX for semaglutide 0.5mg once weekly. He informed pharmacy he is actually waiting for the 1mg dose. Chart reviewed; he has been on the 0.5mg once weekly for at least 4 weeks. His non-VA endocrine is recommending dose increase to 1mg. This is reasonable. Will change RX to semaglutide 1mg once weekly (1 pen, 28 days with no refills). Will ask [facility] CPP to please arrange f/u with patient. Thank you! /bashir Guerrero PharmD Clinical Pharmacy Practitioner Signed: 07/01/2023 15:38 TERI GUERRERO [facility] July 01, 2023 01:51 PM MEDICATION MGT NOT E: LOCAL TITLE: OUTPATIENT MEDICATION REQUEST STANDARD TITLE: MEDICATION MGT NOTE DATE OF NOTE: JULY 01, 2023@13:51 ENTRY DATE: JULY 01, 2023@13:51:31 AUTHOR: NGUYEN NEFF EXP COSIGNER: URGENCY: STATUS: COMPLETED OUTPATIENT MEDICATION REQUEST Has ADDENDA Medication Request Date of Request: June SEMAGLUTIDE (OZEMPIC) PA-F INJ,SOLN SEMAGLUTIDE 0.25MG/0.375ML INJ PEN 3ML INJECT 0.5MG SUBCUTANEOUSLY ONCE A WEEK Quantity: 1 Refills: 3 Indication: FOR TYPE 2 DIABETES MELLITUS Requests for WINDOW /bienvenido/ NGUYEN NEFF RN REGISTERED NURSE Signed: 07/01/2023 13:51 Receipt Acknowledged By: 07/02/2023 08:54 /bienvenido/ LEV OCONNELL MD PHYSICIAN 07/01/2023 ADDENDUM STATUS: COMPLETED [place] picked [place] RX for semaglutide 0.5mg once weekly. He informed pharmacy he is actually waiting for the 1mg dose. Chart reviewed; he has been on the 0.5mg once weekly for at least 4 weeks. His non-VA endocrine is recommending dose increase to 1mg. This is reasonable. Will change RX to semaglutide 1mg once weekly (1 pen, 28 days with no refills). Will ask [facility] CPP to please arrange f/u with patient. Thank you! /bashir Guerrero PharmD Clinical Pharmacy Practitioner Signed: 07/01/2023 15:38 07/01/2023 ADDENDUM STATUS: COMPLETED Correction: [place] picked up RX for semaglutide 0.5mg once weekly. He informed pharmacy he is actually waiting for the 1mg dose. Chart reviewed; he has been on the 0.5mg once weekly for at least 4 weeks. His non-VA endocrine is recommending dose increase to 1mg. This is reasonable. Will change RX to semaglutide 1mg once weekly (1 pen, 28 days with no refills). Originally, singer songwriter suggested rescheduling f/u with [facility] CPP, Dr. Manrique. Pt notes he is seeing non-VA endocrine for both thyroid and diabetes. He does not want any other diabetes management. He notes all records from non-VA endocrine were sent from Dr. Marie's office including RX for semaglutide 1mg. Pt requesting PCP please order: semaglutide 1mg once weekly with refills. Thank you. /bienvenido/ Teri Guerrero, LissetD Clinical Pharmacy Practitioner Signed: 07/01/2023 15:45 Receipt Acknowledged By: * AWAITING SIGNATURE * NGUYEN NEFF * AWAITING SIGNATURE * LEV OCONNELL [facility] May 30, 2023 08:34 AM PRIMARY CARE NOTE: LOCAL TITLE: WALK-IN NOTE PRIMARY CARE (T) STANDARD TITLE: PRIMARY CARE NOTE DATE OF NOTE: MAY 30, 2023@08:34 ENTRY DATE: MAY 30, 2023@08:34:12 AUTHOR: SAMPSON GARCIA COSIGNER: URGENCY: STATUS: COMPLETED Data: 63year old MALE reports to Primary Care clinic for Walk-In visit. 's PCP is LEV OCONNELL, last visit with PCP was 08/12/22, next visit scheduled for 09/04/23. Today Vet walks in to clinic with complaint of 18 days of cold symptoms Last recorded Vital Signs are: Temperature:97.3 F [36.3 C] (05/30/2023 08:33) Pulse:75 (05/30/2023 08:33) Blood Pressure:118/68 (05/30/2023 08:33) Respiration:18 (05/30/2023 08:33) Pain:0 (05/30/2023 08:33) Vet reports current allergies are: Remote Allergy Data FACILITY ALLERGY/ADR -------- 689^[facility]^689NONSTEROIDAL ANTI-INFLAMMATORY Current Medications from Active Med list include: Active Outpatient Medications (including Supplies): Active Outpatient Medications Status ======= 1) ALCOHOL PREP PAD USE 1 PAD TOPICALLY ONCE DAILY TO ACTIVE CLEAN SKIN FOR INJECTION ETC 2) AMLODIPINE BESYLATE 5MG TAB TAKE ONE TABLET BY MOUTH ACTIVE ONCE DAILY FOR BLOOD PRESSURE/HEART, DO NOT TAKE WITH GRAPEFRUIT JUICE 3) ATORVASTATIN CALCIUM 80MG TAB TAKE ONE-HALF TABLET BY ACTIVE MOUTH ONCE DAILY FOR CHOLESTEROL 4) BACLOFEN 10MG TAB TAKE ONE TABLET BY MOUTH THREE ACTIVE TIMES A DAY FOR MUSCLE RIGIDITY (REPLACES CYCLOBENZAPRINE) 5) CARBOXYMETHYLCELLULOSE NA 0.5% OPH SOLN INSTILL 1 ACTIVE DROP INTO EACH EYE FOUR TIMES A DAY FOR DRY EYE 6) CHOLECALCIF 25MCG (D3-1,000UNIT) TAB TAKE ONE TABLET ACTIVE BY MOUTH ONCE DAILY FOR VITAMIN SUPPLEMENTATION 7) CLONAZEPAM 0.5MG TAB TAKE ONE TABLET BY MOUTH THREE ACTIVE TIMES A DAY 8) EMPAGLIFLOZIN 10MG TAB TAKE ONE TABLET BY MOUTH ONCE ACTIVE (S) DAILY FOR DIABETES 9) IRBESARTAN 300MG TAB TAKE ONE TABLET BY MOUTH ONCE ACTIVE DAILY FOR HIGH BLOOD PRESSURE 10) LEVOTHYROXINE NA (SYNTHROID) 100MCG TAB TAKE TWO ACTIVE TABLETS BY MOUTH FRI, FRI, FRI, FRI, FRI, & SAT AND TAKE ONE TABLET ON FRIDAY FOR THYROID - TAKE ON AN EMPTY STOMACH WITH A FULL GLASS OF WATER 11) LUBRICATING (PF) OPH OINT APPLY THIN RIBBON INTO EACH ACTIVE EYE AT BEDTIME FOR DRY EYE 12) SEMAGLUTIDE 0.25MG/0.375ML INJ PEN 3ML INJECT 0.5MG ACTIVE SUBCUTANEOUSLY ONCE A WEEK Active Non-VA Medications Status ======= 1) Non-VA ACETAMINOPHEN 325MG TAB 325MG BY [...] BY MOUTH ONCE ACTIVE DAILY 7) Non-VA POLYETHYLENE GLYCOL 3350 ORAL PWDR 17 ACTIVE GRAMS(FILL CAP TO 17GM LINE) BY MOUTH ONCE DAILY NEEDED 19 Total Medications Action: [place] reports he has been sick for 18 days with varying degrees of symptoms. Currently reports persistent cough and nasal discharge Decrease activity tolerance Denies dyspnea Denies nausea, vomiting or diarrhea Denies dizziness or headache Intermittent sinus pressure with crackling from ears. Requests new VAA BP cuff. States the one at home is old and he feels like it is not working well. referred to Caterina Cervantes ENTREPRENEUR for evaluation. Reminders Info Only: [facility] Video Connect Capable DUE NOW Mental Health Treatment Plan DUE NOW Medication Reconciliation DUE NOW RHS Screen DUE NOW /bienvenido/ SAMPSON GARCIA RN PRIMARY CARE RN Signed: 05/30/2023 10:41 SAMPSON GARCIA [facility]
--- OUTSIDE RECORDS SUMMARY | 2024-02-17 09:31 | XMS_ITS ---
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 ([place]) Organization [facility] Address [address] [place] [address] Care Team Providers Care Laminating Press Operator Name Role Phone LEV OCONNELL Primary [...] PREFERRED PROVIDER ORGANIZAT ION (PPO) FED EMPLO [facility] Jan 26, 2020 [id number] ELIZABETH SMILEY JR PATIENT [employer] PREFERRED PROVIDER ORGANIZAT ION (PPO) DWAYNE AL EMPLO [facility] Feb 25, 2016 [id number] [phone] ELIZABETH SMILEY JR PATIENT [employer] PREFERRED PROVIDER ORGANIZAT ION (PPO) DWAYNE AL EMPL [facility] Feb 25, 2016 [id number] [phone] ELIZABETH SMILEY JR PATIENT [employer] PREFERRED PROVIDER ORGANIZAT ION (PPO) DWAYNE AL EMPL [facility] Feb 25, 2016 [id number] ELIZABETH SMILEY PATIENT A[employer] PREFERRED PROVIDER ORGANIZAT ION (PPO) DWAYNE MORALESO MIMI COO[facility] Feb 24, 2016 [id number] ELIZABETH SMILEY PATIENT [employer] PHARMACY MANAGEMENT PRESCRIPT ION DWAYNE AL EMPLO MIMI Jan 26, 2020 [id number] ELIZABETH SMILEY JR PATIENT [employer] PHARMACY MANAGEMENT PRESCRIPT ION DAIANA Feb 25, 2016 [id number] ELIZABETH SMILEY PATIENT [employer] PHARMACY MANAGEMENT PRESCRIPT ION DWAYNE AL EMPLO MIMI Feb 25, 2016 [id number] ELIZABETH SMILEY PATIENT AET[employer] RX PRESCRIPT ION DWAYNE AL EMPLO MIMI Feb 25, 2016 [id number] ELIZABETH SMILEY PATIENT AETNA RX PRESCRIPT ION [facility]ESSM [facility] Feb 25, 2016 [id number] ELIZABETH BELCHER PATIENT [employer] POINT OF SERVICE [employer] Mar 20, 2002 [id number] ELIZABETH SMILEY PATIENT [employer]* POINT OF SERVICE Mar 20, 2002 [id number] ELIZABETH SMILEY PATIENT Selected Encounter This section includes the information on record at [place] for the Encounter. Date/Time Encounter Type Encounter Description Reason Provider Source May 29, 2023 09:42 AM Outpatient Encounter TELEPHONE TRIAGE ALYSSA MCCOY [facility] Encounter Template Text not used by [place] [...] - MEDICINE [place] [facility] [place] [facility] June 24, 2023 03:00 PM AMBULATORY - NONE [place] [facility] [place] [facility] Aug 08, 2023 03:00 PM AMBULATORY - MEDICINE [place] [facility] [place] [facility] Aug 13, 2023 03:10 PM AMBULATORY - MEDICINE [place] [facility] [place] [facility] Sep 04, 2023 01:30 PM AMBULATORY - MEDICINE [facility] Sep 29, 2023 02:30 PM AMBULATORY - NONE [place] [facility] [place] [facility] Nov 26, 2023 10:00 AM AMBULATORY - MEDICINE [place] [facility] [place] [facility] Nov 28, 2023 07:35 PM AMBULATORY - [place]ICINE [place] [facility] [facility] [facility] Lab Results: +/- 30 days of the [...] Range Comment June 18, 2023 07:38 AM [place] [facility] [facility] THYROID T4 FREE(FT4) (WROX) Specimen Type: SERUM No comment entered. Ordering Provider: LEV LIZAMA Report Released Date/Time: Jun 16, 2023 11:42 AM Reporting Lab: [place] [facility] [place] [facility] [address] [facility] [address] Performing Lab: [place] [facility] [facility] [address] [facility] [phone] THYROID T4 FREE(FT4) (WROX) 1.50 ng/dL 0.6-1.6 June 18, 2023 07:38 AM [place] [facility] [facility] HEMOGLOBIN A1C PANEL Specimen Type: BLOOD Comment: [...] Jun 16, 2023 11:42 AM Reporting Lab: [facility] [place] [address] [address] Performing Lab: [facility] [place] [address] [address] HEMOGLOBIN A1C 7.4 H 4.0-5.6 June 18, 2023 07:38 AM [facility] TSH Specimen Type: SERUM No comment entered. Ordering Provider: LEV LIZAMA Report Released Date/Time: Jun 16, 2023 11:42 AM Reporting Lab: [facility] [place] [address] [address] Performing Lab: [facility] [place] [address] [address] TSH 0.33 u[IU]/mL L 0.35-5.00 Social History: [...] 18, 2023 02:31 PM VA-TOBACCO FORMER USER [facility] Tobacco Use History This section includes a history of the smoking, or tobacco-related health factors, that were collected on or before the date of the Encounter. The data comes from the [place] facility where the Encounter took place. Date/Time Smoking Status/Tobacco Use Comment Dafne xiao Feb 18, 2023 02:31 PM VA-TOBACCO QUIT 15 YRS OR MORE [place] [facility] [facility] Dec 31, 2021 01:00 PM VA-[facility]ACCO [facility] [place] [facility] Dec 31, 2021 01:00 PM VA-TOBACCO QUIT 15 YRS OR MORE [place] [facility] Advance Directives: All historical and current Section [...] Provider Source July 02, 2022 ADVANCE DIRECTIVE CECILIAETIENNEWILL [facility] [place] Aug 07, 2021 ADVANCE DIRECTIVE MARIA ARADHA [place] Nov 28, 2020 ADVANCE DIRECTIVE GOLDIE DUTTA [facility] [place] Encounter Notes: All associated encounter notes This section contains the clinical notes associated to the Encounter. Date/Time Encounter Note(s) Provider Source May 29, 2023 09:42 AM RN PROGRESS NOTE: LOCAL TITLE: CCC: CLINICAL TRIAGE STANDARD TITLE: RN PROGRESS NOTE DATE OF NOTE: MAY 29, 2023@09:42:49 ENTRY DATE: MAY 29, 2023@09:42:49 AUTHOR: ALYSSA MCCOY EXP COSIGNER: URGENCY: STATUS: COMPLETED CCC: CLINICAL TRIAGE Has ADDENDA Patient Demographics Patient Name: ELIZABETH SMILEY Patient Primary [address]: [address] [place] [id number] Patient Primary Phone: [phone] Patient : 1960 Patient Age: 63 Caller/Recipient Relation to Patient: Self Emergency Contact: YVES SMILEY Triage Summary Conducted triage/discussed symptoms Utilized the Triage Tool: Yes Chief Complaint: Shortness Of Breath System WHEN: Within 3 Days Nurse's Recommendation / WHEN: Within 3 Days System WHERE: Clinic Nurse's Recommendation / WHERE: Clinic/[facility] Nursing Plan and Disposition Referred Patient for In-Person Appt Transferred patient to Sched & Admin-Apt No appt avail Advised Urgent Care Other course(s) of action Generated msg to PACT/Provider Provided guidance for worsening symptoms: *Caller/Patient* advised to call facilities [place] Clinical Contact Center or seek immediate medical attention for new or worsening symptoms Nurse Summary Nurse Summary: Laneview reports he is on day 17 of a ''head cold.'' He was seen in , was recommended he start delsum for cough and mucinex x 7 days. He initially felt better after completing but has worsening cough, SOB, sinus congestion, fluid in ears. Laneview is requesting a return call for guidance on starting Mucinex again. [facility] Recommendation: Provider within 3 days was offered and declined a [facility] Virtual Clinic Visit. Vet transferred to [facility] for scheduling. If unable to book appt in next 3 days per [facility] recommendation, vet would like a call back from PACT to discuss possibility of scheduling out further. Vet aware of UC for backup or worsening symptoms but prefers to be seen by PCP. Laneview advised a note will be forwarded to PACT for follow up. Clinical Contact Center Codes Clinic/Location: V1 CWM PHONE [facility] RN TXCC Triage Complete Triage Date: 05/29/2023 8:36 AM Triage Note: Phone Triage Fay, 29 May 2023 13:28:19 +0000 [facility] Demographics 63 y/o Male Results CC: Shortness Of Breath Software suggested: Within 3 Days Software suggested follow-up location: Clinic, consider virtual care Values and Measures Serum glucose: 159 mg / dL Duration of CC: 17 Days Positive Responses HPI: cough, new or worsening HPI: dyspnea, sudden onset PMH: diabetes PMH: type 2 diabetes VS: pulse not taken VS: respiratory rate not taken VS: temperature not taken Negative Responses Denies: HPI: arm pain, with dyspnea Denies: HPI: chest pain, new or worsening Denies: HPI: chest pain, pleuritic Denies: HPI: confined passenger travel, duration longer than 6 hours, within past 2 weeks Denies: HPI: cough, purulent sputum Denies: HPI: diaphoresis, with dyspnea Denies: HPI: dyspnea on exertion, worse than usual during normal activities Denies: HPI: dyspnea, episodic, duration longer than 2 weeks Denies: HPI: dyspnea, moderate to severe Denies: HPI: dyspnea, worsening Denies: HPI: fever, subjective Denies: HPI: hemoptysis Denies: HPI: high altitude exposure over 6,000 feet Denies: HPI: jaw pain, with dyspnea Denies: HPI: leg pain, worsening Denies: HPI: leg swelling, bilateral, worsening Denies: HPI: leg swelling, unilateral Denies: HPI: lightheadedness, with dyspnea Denies: HPI: melena Denies: HPI: mental status change, confusion Denies: HPI: mental status change, lethargy Denies: HPI: myalgias Denies: HPI: nausea or vomiting, with dyspnea Denies: HPI: nonambulatory, confined to bed or wheelchair, for more than 4 days Denies: HPI: orthopnea, need to elevate head of bed Denies: HPI: paroxysmal nocturnal dyspnea Denies: HPI: syncope, with dyspnea Denies: HPI: weakness, fatigue, more than usual Denies: HPI: weakness, with dyspnea Denies: HPI: wheezing, new or worsening Denies: MEDS: chemotherapy Denies: MEDS: home oxygen Denies: MEDS: insulin Denies: PMH: angina Denies: PMH: CHF Denies: PMH: DVT Denies: PMH: heart attack Denies: PMH: HIV positive Denies: PMH: kidney failure, receiving dialysis Denies: PMH: pulmonary embolism Denies: PMH: sickle cell anemia Denies: PMH: stroke or TIA Denies: PSH: organ transplant Denies: PSH: spleen removed Denies: PSH: surgery, trunk or abdomen, within past month /es/ ALYSSA MCCOY Signed: 05/29/2023 09:42 Receipt Acknowledged By: 05/29/2023 09:56 /bienvenido/ RIMMA LOPES,RN-BC REGISTERED NURSE (RN) for NGUYEN NEFF 05/30/2023 09:18 /es/ MAXIMO HOFFMAN LPN LPN 05/29/2023 ADDENDUM STATUS: COMPLETED Called patient and he reports he developed a head cold 17 days ago. He continues to have a runny nose, sneezing, dry cough, head/sinus pressure and he feels like he has fluid in his ear. He reports on 05/20/2023 he went to [facility] and seen a nurse who advised him to take Mucinex and Delsym for the cough. He states the cough improved with Delsym so he stopped taking and now the cough is back. 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 be seen. Machine Room Operator advised to walk into sick clinic tomorrow for eval and if symptoms worsens to go to the ER for eval. Laneview verbalized understanding and agreed to plan. /bienvenido/ RIMMA LOPES,RN-BC REGISTERED NURSE (RN) Signed: 05/29/2023 11:48 [facility]CC[facility]
--- OUTSIDE RECORDS SUMMARY | 2024-02-17 09:31 | XMS_ITS | Encounter Summary ---
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 Organization [facility] [place] Address [address] [place] [address] Care Team Providers Care Senior Technical Architect Name Role Phone LEV OCONNELL Primary Care [...] (PPO) FED EMPLO [facility] Jan 26, 2020 [id number] [phone] ELIZABETH SMILEY JR PATIENT [employer] PREFERRED PROVIDER ORGANIZAT ION (PPO) DWAYNE AL EMPL [facility] Feb 25, 2016 [id number] ELIZABETH SMILEY JR PATIENT [employer] PREFERRED PROVIDER ORGANIZAT ION (PPO) WDAYNE AL EMPL [facility] Feb 25, 2016 [id number] ELIZABETH SMILEY PATIENT [employer] PREFERRED PROVIDER ORGANIZAT ION (PPO) DWAYNE AL EMPLO [facility] Feb 25, 2016 [id number] ELIZABETH SMILEY JR PATIENT [employer] PREFERRED PROVIDER ORGANIZAT ION (PPO) DWAYNE MORALESO MIMI COOLEY Feb 24, 2016 [id number] ELIZABETH SMILEY PATIENT [employer] PHARMACY MANAGEMENT PRESCRIPT ION DWAYNE AL MIO MIMI COOLEY Jan 26, 2020 [id number] ELIZABETH SMILEY JR PATIENT [employer] PHARMACY MANAGEMENT PRESCRIPT ION DAIANA Feb 25, 2016 [id number] ELIZABETH SMILEY PATIENT [employer] PHARMACY MANAGEMENT PRESCRIPT ION DWAYNE AL MIO MIMI Feb 25, 2016 [id number] ELIZABETH SMILEY PATIENT AET[employer] RX PRESCRIPT ION DWAYNE MORALESO MIMI COOLEY Feb 25, 2016 [id number] ELIZABETH SMILEY PATIENT AETNA RX PRESCRIPT ION FEP Feb 25, 2016 [id number] ELIZABETH SMILEY JR PATIENT [employer]IGNA POINT OF SERVICE [employer] Mar 20, 2002 [id number] ELIZABETH SMILEY PATIENT CIGNA* POINT OF SERVICE Mar 20, 2002 [id number] ELIZABETH SMILEY PATIENT Selected Encounter This section includes the information on record at [place] for the Encounter. Date/Time Encounter Type Encounter Description Reason Pro vider Source May 27, 2023 10:12 AM Outpatient Encounter PRIMARY CARE/MEDICINE IHE Encounter Template Text not used by [place] Plan of Treatment: Future Appointments (+ 6 months) and Future Tests (+/- 45 days) The Plan of Treatment section includes future care activities for the patient from all [place] treatmentfacilities. This section includes future appointments and future orders which are active, pending or scheduled. Future Appointments This section includes appointments that were scheduled to occur 6 months from the date of the Encounter, up to a maximum of 20 appointments. The data comes from all [place] treatment facilities. Appointment Date/Time Appointment Type Appointme nt Facility Name May 30, 2023 08:00 AM AMBULATORY - MEDICINE [place] [place] May 30, 2023 08:15 AM [facility], [facility]23 04:00 PM [facility] [place] [facility] June 24, 2023 03:00 PM AMBULATORY - NONE [facility] [place] [facility] Aug 08, 2023 03:00 PM AMBULATORY - MEDICINE [facility] [place] [facility] Aug 13, 2023 03:10 PM AMBULATORY - MEDICINE [facility] [place] [facility] Sep 04, 2023 01:30 PM [facility] Sep 29, 2023 02:30 PM AMBULATORY - NONE [facility] [place] [facility] Nov 26, 2023 10:00 AM AMBULATORY - MEDICINE [facility] [place] [facility] Lab Results: +/- 30 days of [...] Range Comment June 18, 2023 07:38 AM [place] [facility] [facility] THYROID T4 FREE(FT4) (WROX) Specimen Type: SERUM No comment entered. Ordering Provider: LEV LIZAMA Report Released Date/Time: Jun 16, 2023 11:42 AM Reporting Lab: [place] [facility] [place] [facility] [address] [facility] [address] Performing Lab: [place] [facility] [place] [facility] [address] [facility] [address] THYROID T4 FREE(FT4) (WROX) 1.50 ng/dL 0.6-1.6 June 18, 2023 07:38 AM [place] [facility] [place] [facility] TSH Specimen Type: SERUM No comment entered. Ordering Provider: LEV LIZAMA Report Released Date/Time: Jun 16, 2023 11:42 AM Reporting Lab: [place] [facility] [facility] [address] [facility] [address] Performing Lab: [facility] [address] [facility] [address] TSH 0.33 u[IU]/mL L 0.35-5.00 June 18, 2023 07:38 AM [facility] HEMOGLOBIN A1C PANEL Specimen Type: BLOOD Comment: Values obtained from A1C measurements can vary. For atypical A1C assays, a reported value of 7.0 could actually be between 6.72 and 7.28 if measured by a reference method. A reported value of 9.0 could actually be between 8.73 and 9.27. Ref: [email or web address] asp Ordering Provider: LEV LIZAMA Report Released Date/Time: Jun 16, 2023 11:42 AM Reporting Lab: [address] [address] Performing Lab: [address] [address] HEMOGLOBIN A1C 7.4 H 4.0-5.6 Social History: Smoking Status (Most current) and Tobacco Use (All prior to encounter date) This section includes the most current, and the historical, smoking and tobacco- related health factors from the [place] facility where the Encounter took place. Current Smoking Status This section includes the most current smoking, or tobacco-related health factor, from the [place] facility where the Encounter took place. Date/Time Current Smoking Status Comment Corina ity Feb 18, 2023 02:31 PM VA-TOBACCO QUIT 15 YRS OR MORE [facility] Tobacco Use History This section includes a history of the smoking, or tobacco-related health factors, that were collected on or before the date of the Encounter. The data comes from the [place] facility where the Encounter took place. Date/Time Smoking Status/Tobacco Use Comment F acroger Feb 18, 2023 02:31 PM [facility]-TOBACCO [facility] Dec 31, 2021 01:00 PM VA-TOBACCO [facility] Dec 31, 2021 01:00 PM VA-TOBACCO QUIT 15 YRS OR MORE [facility] Advance Directives: All historical and current Section Date Range: From patient's date of to the date document was created. This section includes ALL of a patient's completed or amended [place] Advance and Rescinded Directives. The entries below indicate that a directive exists for the patient, but an actual copy is not included with this document. The data comes from all [place] facilities. Date Advance Directives Provider Source July 02, 2022 ADVANCE DIRECTIVE CECILIASANDRA [facility] Aug 07, 2021 ADVANCE DIRECTIVE RADHA SAHA [facility] Nov 28, 2020 ADVANCE DIRECTIVE GOLDIE DUTTA [facility] Encounter Notes: All associated encounter notes This section contains the clinical notes associated to the Encounter. Date/Time Encounter Note(s) Provider Source May 27, 2023 10:12 AM PRIMARY CARE YECENIA E MESSAGING: LOCAL TITLE: PRIMARY CARE SECURE MESSAGING STANDARD TITLE: PRIMARY CARE SECURE MESSAGING DATE OF NOTE: MAY 27, 2023@10:12 ENTRY DATE: MAY 27, 2023@11:12:14 AUTHOR: EDUARDO OHARA EXP COSIGNER: URGENCY: STATUS: COMPLETED ------Original Message ----- Sent: 05/27/2023 11:07 AM ET From: ELIZABETH SMILEY To: ANISH[facility] Subject: Medication:Amlodipine Refill I have no refill for Amlodipine 5mg. I have 11 days worth of meds and would like to pick this up at the [facility] in [facility]. /bienvenido/ EDUARDO MENESES Signed: 05/27/2023 11:12 Receipt Acknowledged By: 05/27/2023 11:16 /es/ RIMMA LOPES,RN-BC REGISTERED NURSE (RN) for NGUYEN TAWANDA 05/27/2023 11:29 /es/ MOR TREVIÑO LPN, [facility]
--- OUTSIDE RECORDS SUMMARY | 2024-02-17 09:31 | XMS_ITS ---
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 ([place]) Organization [facility] ([place]) Address [address] [place] [address] Care Team Providers Care Levers Lace Machine Operator Name Role Phone LEV OCONNELL [...] PREFERRED PROVIDER ORGANIZAT ION (PPO) FED EMPLO [facility] Jan 26, 2020 [id number] ELIZABETH SMILEY JR PATIENT [employer] PREFERRED PROVIDER ORGANIZAT ION (PPO) DWAYNE AL EMPLO [facility] Feb 25, 2016 [id number] ELIZABETH SMILEY JR PATIENT [employer] PREFERRED PROVIDER ORGANIZAT ION (PPO) DWAYNE AL EMPL [facility] Feb 25, 2016 [id number] ELIZABETH SMILEY JR PATIENT [employer] PREFERRED PROVIDER ORGANIZAT ION (PPO) DWAYNE AL EMPL [facility] Feb 25, 2016 [id number] ELIZABETH SMILEY PATIENT [employer] PREFERRED PROVIDER ORGANIZAT ION (PPO) DWAYNE MORALESO MIMI COOLEY Feb 24, 2016 [id number] ELIZABETH SMILEY PATIENT [employer] PHARMACY MANAGEMENT PRESCRIPT ION DWAYNE AL EMPLO MIMI Jan 26, 2020 [id number] ELIZABETH SMILEY JR PATIENT [employer] PHARMACY MANAGEMENT PRESCRIPT ION DAIANA Feb 25, 2016 [id number] ELIZABETH SMILEY PATIENT [employer] PHARMACY MANAGEMENT PRESCRIPT ION DWAYNE AL EMPLO MIMI Feb 25, 2016 [id number] ELIZABETH SMILEY PATIENT AET[employer] RX PRESCRIPT ION DWAYNE AL EMPLO MIMI Feb 25, 2016 [id number] ELIZABETH SMILEY PATIENT AETNA RX PRESCRIPT ION [facility] Feb 25, 2016 [id number] ELIZABETH BELCHER PATIENT [employer] POINT OF SERVICE [employer] Mar 20, 2002 [id number] ELIZABETH SMILEY PATIENT [employer]IG[employer]* POINT OF SERVICE Mar 20, 2002 [id number] ELIZABETH SMILEY PATIENT Selected Encounter This section includes the information on record at [place] for the Encounter. Date/Time Encounter Type Encounter Description Reason Provider Source May 20, 2023 05:58 AM Outpatient Encounter TELEPHONE TRIAGE MELISA ROSSI [place] Encounter Template Text not used by [place] [...] 2023 08:00 AM [facility] May 30, 2023 08:15 AM [facility]ULATORY - MEDICINE SPR[facility] Jun 04, 2023 04:00 PM AMBULATORY - MEDICINE [place] [facility] June 24, 2023 03:00 PM AMBULATORY - NONE [place] [facility] [place] [facility] Aug 08, 2023 03:00 PM AMBULATORY - MEDICINE [place] [facility] Aug 13, 2023 03:10 PM AMBULATORY - MEDICINE [place] [facility] Sep 04, 2023 01:30 PM AMBULATORY - MEDICINE SPRI [facility] Sep 29, 2023 02:30 PM [facility] - NONE [facility] Lab Results: +/- 30 days of the [...] Range Comment June 18, 2023 07:38 AM [facility] THYROID T4 FREE(FT4) (WROX) Specimen Type: SERUM No comment entered. Ordering Provider: LEV LIZAMA Report Released Date/Time: Jun 16, 2023 11:42 AM Reporting Lab: [facility] [address] [facility] [address] Performing Lab: [facility] [address] [facility] [address] THYROID T4 FREE(FT4) (WROX) 1.50 ng/dL 0.6-1.6 June 18, 2023 07:38 AM [facility] HEMOGLOBIN A1C PANEL Specimen Type: BLOOD Comment: [...] Jun 16, 2023 11:42 AM Reporting Lab: [facility] [address] [facility] [address] Performing Lab: [facility] [address] [address] HEMOGLOBIN A1C 7.4 H 4.0-5.6 June 18, 2023 07:38 AM [facility] TSH Specimen Type: SERUM No comment entered. Ordering Provider: LEV LIZAMA Report Released Date/Time: Jun 16, 2023 11:42 AM Reporting Lab: [facility] [address] [facility] [facility] [address] Performing Lab: [facility] [address] [address] TSH 0.33 u[IU]/mL L 0.35-5.00 Social History: [...] 18, 2023 02:31 PM VA-TOBACCO FOR[facility] Tobacco Use History This section includes a history of the smoking, or tobacco-related health factors, that were collected on or before the date of the Encounter. The data comes from the [place] facility where the Encounter took place. Date/Time Smoking Status/Tobacco Use Comment F acility Feb 18, 2023 02:31 PM VA-TOBACCO QUIT 15 YRS OR MORE [place] CNTR [place] [facility] Dec 31, 2021 01:00 PM VA-TOBACCO FORMER USER [place]L [place] [facility] Dec 31, 2021 01:00 PM VA-TOBACCO QUIT 15 YRS OR MORE [facility] Advance Directives: All historical and current [...] [place] Aug 07, 2021 ADVANCE DIRECTIVE SAHARADHA I[place] Nov 28, 2020 ADVANCE DIRECTIVE GOLDIE DUTTA [facility] I[place] Encounter Notes: All associated encounter notes This section contains the clinical notes associated to the Encounter. Date/Time Encounter Note(s) Provider Source May 20, 2023 05:58 AM RN PROGRESS NOTE: LOCAL TITLE: CCC: CLINICAL TRIAGE STANDARD TITLE: RN PROGRESS NOTE DATE OF NOTE: MAY 20, 2023@05:58:31 ENTRY DATE: MAY 20, 2023@05:58:31 AUTHOR: MELISA ROSSI COSIGNER: URGENCY: STATUS: COMPLETED Patient Demographics Patient Name: ELIZABETH SMILEY Patient Primary Address: [address] [place] [id number] Patient Primary Phone: [phone] Patient : 1960 Patient Age: 63 Caller/Recipient Relation to Patient: Self Emergency Contact: YVES SMILEY Triage Summary Conducted triage/discussed symptoms Pain Score: 2 Utilized the Triage Tool: Yes Chief Complaint: Cough System WHEN: Within 3 Days Nurse's Recommendation / WHEN: Within 8 Hours System WHERE: Clinic Nurse's Recommendation / WHERE: Urgent Non-VA COVID Screening Patient confirms the following symptoms Cough Headache Runny Nose COVID Test to Treat Patient has a COVID home test kit Patient Disposition Patient/Caregiver agrees to plan of care: Yes Nursing Plan and Disposition Referred patient to higher level of care Instructed to go to Urgent Care (UC) Provided location of Urgent Care Center Comments: [facility] Nurse Summary Nurse Summary: Patient calling to report he has a cough, running nose and head ache off/on for the past 8 days. Patient states it feels like he has a sinus infection and requesting to be seen at an urgent care. Patient states his mucus is clear, denies sore throat, shortness of breath, chest pain and fever. Advised for patient to be seen at non-VA urgent care. Patient agreed and verbalized an understanding Clinical Contact Center Codes Clinic/Location: V1 CWM PHONE CCC RN TXCC Triage Complete Triage Date: 05/20/2023 4:50 AM Triage Note: Phone Triage Nahomi, 20 May 2023 09:39:49 +0000 [facility] Demographics 63 y/o Male Results CC: Cough Software suggested: Within 3 Days Software suggested follow-up location: Clinic, consider virtual care Values and Measures Duration of CC: 8 Days Positive Responses HPI: coughing, within the past hour HPI: nasal congestion, duration longer than 2 days HPI: pain, maxillary or frontal sinuses MEDS: insulin PMH: diabetes VS: respiratory rate not taken VS: temperature not taken Negative Responses Denies: HPI: breathing more rapidly than usual Denies: HPI: chest pain, pleuritic Denies: HPI: confusion, new or worsening Denies: HPI: cough, onset after insect bite or sting Denies: HPI: cough, purulent sputum Denies: HPI: cough, severe, onset within past 3 hours Denies: HPI: dyspnea on exertion, worse than usual Denies: HPI: dyspnea, new or worsening Denies: HPI: fever, subjective Denies: HPI: maxillary or frontal sinus pain, severe, duration longer than 2 hours Denies: HPI: rhinorrhea, yellow or brown Denies: HPI: sore throat Denies: HPI: vomiting Denies: HPI: wheezing, new or worsening Denies: MEDS: antibiotic Denies: PMH: CHF Denies: PMH: heart disease /bienvenido/ MELISA ROSSI RN,MSN VISN 2 [facility] NURSE Signed: 05/20/2023 05:58 Receipt Acknowledged By: 05/23/2023 10:54 /bienvenido/ NGUYEN NEFF RN REGISTERED NURSE 05/21/2023 15:57 /bienvenido/ LEV OCONNELL MD PHYSICIAN MELISA ROSSI CNTRL WSTRN [facility]
--- OUTSIDE RECORDS SUMMARY | 2024-02-17 09:31 | XMS_ITS ---
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 ([place]) Organization [facility] Address [address] [place] [address] Care Team Providers Care [place] Machine Operator Name Role Phone LEV OCONNELL [...] PREFERRED PROVIDER ORGANIZAT ION (PPO) FED EMPLO [facility] Jan 26, 2020 [id number] ELIZABETH SMILEY JR PATIENT [employer] PREFERRED PROVIDER ORGANIZAT ION (PPO) DWAYNE AL EMPLO [facility] Feb 25, 2016 [id number] ELIZABETH SMILEY JR PATIENT A[employer] PREFERRED PROVIDER ORGANIZAT ION (PPO) DWAYNE AL EMPL [facility] Feb 25, 2016 [id number] ELIZABETH SMILEY JR PATIENT A[employer] PREFERRED PROVIDER ORGANIZAT ION (PPO) DWAYNE AL EMPL [facility] Feb 25, 2016 [id number] ELIZABETH SMILEY PATIENT A[employer] PREFERRED PROVIDER ORGANIZAT ION (PPO) DWAYNE AL MIO MIMI COOLEY Feb 24, 2016 [id number] ELIZABETH SMILEY PATIENT [employer] PHARMACY MANAGEMENT PRESCRIPT ION DWAYNE AL EMPLO MIMI Jan 26, 2020 [id number] ELIZABETH SMILEY JR PATIENT [employer] PHARMACY MANAGEMENT PRESCRIPT ION DAIANA Feb 25, 2016 [id number] ELIZABETH SMILEY PATIENT [employer] PHARMACY MANAGEMENT PRESCRIPT ION DWAYNE AL EMPLO MIMI Feb 25, 2016 [id number] ELIZABETH SMILEY PATIENT AETNA RX PRESCRIPT ION DWAYNE AL EMPLO MIMI Feb 25, 2016 [id number] ELIZABETH SMILEY PATIENT AETNA [facility] Feb 25, 2016 [id number] ELIZABETH SMILEY JR PATIENT [employer]NA POINT OF SERVICE [employer] Mar 20, 2002 [id number] ELIZABETH SMILEY PATIENT CIGNA* POINT OF SERVICE Mar 20, 2002 [id number] ELIZABETH SMILEY PATIENT Selected Encounter This section includes the information on record at [place] for the Encounter. Date/Time Encounter Type Encounter Description Reason Pro vider Source May 30, 2023 07:43 AM Outpatient Encounter PRIMARY CARE/MEDICINE IHE Encounter Template Text not used by [place] Plan of Treatment: Future Appointments (+ 6 months) and Future Tests (+/- 45 days) The Plan of Treatment section includes future care activities for the patient from all [place] treatmentfacilities. This section includes future appointments and future orders which are active, pending or scheduled. Future Appointments This section includes appointments that were scheduled to occur 6 months from the date of the Encounter, up to a maximum of 20 appointments. The data comes from all [place] treatment facilities. Appointment Date/Time Appointment Type Appointme nt Facility Name Jun 04, 2023 04:00 PM AMBULATORY - MEDICINE [place] [facility] June 24, 2023 03:00 PM AMBULATORY - NONE [facility] [place] [facility] Aug 08, 2023 03:00 PM AMBULATORY - MEDICINE [place] [facility] [place] [facility] Aug 13, 2023 03:10 PM AMBULATORY - MEDICINE [place] C [place] [facility] Sep 04, 2023 01:30 PM AMBULATORY - MEDICINE SPRI [facility] Sep 29, 2023 02:30 PM AMBULATORY - NONE [facility] [place] [facility] Nov 26, 2023 10:00 AM AMBULATORY - MEDICINE [place] C [place] [facility] Nov 28, 2023 07:35 PM AMBULATORY - MEDICINE [place] C [facility] Lab Results: +/- 30 days of the [...] 18, 2023 07:38 AM [facility] THYROID T4 FREE(FT4) (WROX) Specimen Type: SERUM No comment entered. Ordering Provider: LEV LIZAMA Report Released Date/Time: Jun 16, 2023 11:42 AM Reporting Lab: [facility] [address] [facility] [address] Performing Lab: [facility] [address] [facility] [address] THYROID T4 FREE(FT4) (WROX) 1.50 ng/dL 0.6-1.6 June 18, 2023 07:38 AM [facility] HEMOGLOBIN A1C PANEL Specimen Type: BLOOD Comment: [...] Jun 16, 2023 11:42 AM Reporting Lab: [facility] [address] [facility] [address] Performing Lab: [address] [address] HEMOGLOBIN A1C 7.4 H 4.0-5.6 June 18, 2023 07:38 AM [facility] TSH Specimen Type: SERUM No comment entered. Ordering Provider: LEV LIZAMA Report Released Date/Time: Jun 16, 2023 11:42 AM Reporting Lab: [facility] [address] [facility] [address] Performing Lab: [address] [address] TSH 0.33 u[IU]/mL L 0.35-5.00 Social History: Smoking Status (Most current) and Tobacco Use (All prior to encounter date) This section includes the most current, and the historical, smoking and tobacco- related health factors from the [place] facility where the Encounter took place. Current Smoking Status This section includes the most current smoking, or tobacco-related health factor, from the [place] facility where the Encounter took place. Date/Time Current Smoking Status Comment Facil ity Feb 18, 2023 02:31 PM VA-TOBACCO FORMER USER [facility] Tobacco Use History This section includes a history of the smoking, or tobacco-related health factors, that were collected on or before the date of the Encounter. The data comes from the [place] facility where the Encounter took place. Date/Time Smoking Status/Tobacco Use Comment F acility Feb 18, 2023 02:31 PM VA-TOBACCO QUIT 15 YRS OR MORE [facility] Dec 31, 2021 01:00 PM VA-TOBACCO FORMER USER [facility] Dec 31, 2021 01:00 PM VA-TOBACCO QUIT 15 YRS OR MORE [facility] Advance Directives: All historical and current Section Date Range: From patient's date of to the date document was created. This section includes ALL of a patient's completed or amended [place] Advance and Rescinded Directives. The entries below indicate that a directive exists for the patient, but an actual copy is not included with this document. The data comes from all [place] facilities. Date Advance Directives Provider Source July 02, 2022 ADVANCE DIRECTIVE CECILIASANDRA [place] [place] Aug 07, 2021 ADVANCE DIRECTIVE RADHA SAHA [place] Nov 28, 2020 ADVANCE DIRECTIVE GOLDIE DUTTA [facility] IELD Encounter Notes: All associated encounter notes This section contains the clinical notes associated to the Encounter. Date/Time Encounter Note(s) Provider Source May 30, 2023 07:43 AM PRIMARY CARE NOTE: LOCAL TITLE: WALK-IN NOTE PRIMARY CARE (T) STANDARD TITLE: PRIMARY CARE NOTE DATE OF NOTE: MAY 30, 2023@07:43 ENTRY DATE: MAY 30, 2023@07:43:59 AUTHOR: EDUARDO OHARA COSIGNER: URGENCY: STATUS: COMPLETED <====Click to Start Advanced Medical Support [place] presents to the Primary Care clinic with the following request: [ ]Medication Renewal/Refill [ ]Consultation with Team RN [ X ]Symptoms cold symptoms [ ]Other The states they are: [ X ]Waiting [ ]Not Waiting No Walk in visit scheduled with PACT Nurse [ X ] At this encounter the 's demographics were verified. [ X ] At this encounter the 's Insurance information was verified. [ X ] At this encounter the below scheduled visits for the [place] were discussed and appointment reminder card was offered. Future appointments: 05/30/2023 08:00 CWM/SO/SICK RN 05/30/2023 08:15 CWM/SO/SICK CALL ARMAMENT INSTALLER 05/30/2023 13:30 CWM/SO/PHARM/PACT 2 06/04/2023 16:00 COM CARE-NEPHROLOGY 06/24/2023 15:00 CWM/SO/NUTRITION1 09/04/2023 13:30 CWM/SO/PACT 5 01/13/2024 13:00 NHM/OPTOMETRY/NGUYEN/ came in for sick clinic for cold sypmtoms for the last 18- 19 days . Social Work Supervisor Let Sick ARMAMENT INSTALLER and RN know. /es/ EDUARDO MENESES Signed: 05/30/2023 07:45 Receipt Acknowledged By: 05/30/2023 07:51 /es/ KATHERINE YA CERTIFIED NURSE PRACTITIONER 05/30/2023 07:48 /es/ SAMPSON GARCIA, CLOTH FEEDER RN EDUARDO OHARA
--- OUTSIDE RECORDS SUMMARY | 2024-02-17 09:32 | XMS_ITS ---
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 [place] Address [address] [place] [address] Care Team Providers Care Consultant Teacher Name Role Phone LEV OCONNELL Primary [...] (PPO) FED EMPLO YE Jan 26, 2020 [id number] ELIZABETH SMILEY JR PATIENT [employer] PREFERRED PROVIDER ORGANIZAT ION (PPO) DWAYNE AL EMPL [facility] Feb 25, 2016 [id number] ELIZABETH SMILEY JR PATIENT [employer] PREFERRED PROVIDER ORGANIZAT ION (PPO) DWAYNE AL EMPL [facility] Feb 25, 2016 [id number] ELIZABETH SMILEY PATIENT [employer] PREFERRED PROVIDER ORGANIZAT ION (PPO) DWAYNE AL EMPLO YEES Feb 25, 2016 [id number] ELIZABETH BELCHER PATIENT [employer] PREFERRED PROVIDER ORGANIZAT ION (PPO) DWAYNE SILVA Feb 24, 2016 [id number] ELIZABETH SMILEY PATIENT [employer] PHARMACY MANAGEMENT PRESCRIPT ION DWAYNE SILVA Jan 26, 2020 [id number] ELIZABETH SMILEY JR PATIENT [employer] PHARMACY MANAGEMENT PRESCRIPT ION DWAYNE PIERCE Feb 25, 2016 [id number] ELIZABETH SMILEY PATIENT [employer] PHARMACY MANAGEMENT PRESCRIPT ION DAIANA Feb 25, 2016 [id number] ELIZABETH SMILEY PATIENT [employer] RX PRESCRIPT ION DWAYNE SILVA Feb 25, 2016 [id number] ELIZABETH SMILEY PATIENT [employer] RX PRESCRIPT ION FEP Feb 25, 2016 [id number] BALJIT BELCHERELIZABETH PATIENT [employer] POINT OF SERVICE TYCO Mar 20, 2002 [id number] ELIZABETH SMILEY PATIENT [employer]* POINT OF SERVICE Mar 20, 2002 [id number] BALJIT ELIZABETH PATIENT Selected Encounter This section includes the information on record at [place] for the Encounter. Date/Time Encounter Type Encounter Description Reason Pro vider Source June 30, 2023 03:48 PM Outpatient Encounter ADMIN PAT ACTIVTIES (MASNONCT) IHE Encounter Template Text not used by [place] Plan of Treatment: Future Appointments (+ 6 months) and Future Tests (+/- 45 days) The Plan of Treatment section includes future care activities for the patient from all [place] treatmentfacilities. This section includes future appointments and future orders which are active, pending or scheduled. Future Appointments This section includes appointments that were scheduled to occur 6 months from the date of the Encounter, up to a maximum of 20 appointments. The data comes from all [place] treatment facilities. Appointment Date/Time Appointment Type Appointme nt Facility Name Aug 08, 2023 03:00 PM AMBULATORY [facility] MEDICINE [facility] [place] [facility] Aug 13, 2023 03:10 PM AMBULATORY - MEDICINE [facility] [place] [facility] Sep 04, 2023 01:30 PM AMBULATORY - MEDICINE AMIEI MARCEL Sep 29, 2023 02:30 PM AMBULATORY - NONE [facility] [place] [facility] Nov 26, 2023 10:00 AM AMBULATORY - MEDICINE [place] [facility] [place] [facility] Nov 28, 2023 07:35 PM AMBULATORY - MEDICINE [facility] [place] [facility] Dec 29, 2023 01:30 PM AMBULATORY - MEDICINE [place] [facility] [place] [facility] Lab Results: +/- 30 days of the encounter This section includes the Chemistry and Hematology Lab Results on record with [place] for the patient. Radiology Reports and Pathology Reports are provided separately, in subsequent sections. Lab Results This section contains the Chemistry/Hematology Results that were resulted 30 days before or 30 daysafter the date of the Encounter. Date/Time Source Result Type Result - Unit Interpretation Reference Range Comment June 18, 2023 07:38 AM [facility] THYROID T4 FREE(FT4) (WROX) Specimen Type: SERUM No comment entered. Ordering Provider: LEV LIZAMA Report Released Date/Time: Jun 16, 2023 11:42 AM Reporting Lab: [facility] [address] [facility] [address] Performing Lab: [facility] [address] [address] THYROID T4 FREE(FT4) (WROX) 1.50 ng/dL 0.6-1.6 June 18, 2023 07:38 AM [facility] HEMOGLOBIN A1C PANEL Specimen Type: [...] Jun 16, 2023 11:42 AM Reporting Lab: [facility] [address] [facility] [address] Performing Lab: [facility]US[facility]ETS [address] [address] HEMOGLOBIN A1C 7.4 H 4.0-5.6 June 18, 2023 07:38 AM [facility] TSH Specimen Type: SERUM No comment entered. Ordering Provider: LEV LIZAMA Report Released Date/Time: Jun 16, 2023 11:42 AM Reporting Lab: [facility]ITALRW[facility]ITALTRN [facility]USUSE[address] [address] Performing Lab: [facility]N [facility]US[facility]ETS [address] [address] TSH 0.33 u[IU]/mL L 0.35-5.00 Social History: Smoking Status (Most current) and Tobacco Use (All prior to encounter date) This section includes the most current, and the historical, smoking and tobacco- related health factors from the [place] facility where the Encounter took place. Current Smoking Status This section includes the most current smoking, or tobacco-related health factor, from the [place] facility where the Encounter took place. Date/Time Current Smoking Status Comment Corina ity Feb 18, 2023 02:31 PM VA-TOBACCO FORMER USER [facility] Tobacco Use History This section includes a history of the smoking, or tobacco-related health factors, that were collected on or before the date of the Encounter. The data comes from the [place] facility where the Encounter took place. Date/Time Smoking Status/Tobacco Use Comment F acility Feb 18, 2023 02:31 PM VA-TOBACCO QUIT 15 YRS OR MORE [place] [facility] [place] [facility] Dec 31, 2021 01:00 PM VA-TOBACCO FORMER USER [place] [facility] [place] [facility] Dec 31, 2021 01:00 PM VA-TOBACCO QUIT 15 YRS OR MORE [facility] Advance Directives: All historical and current Section Date Range: From patient's date of to the date document was created. This section includes ALL of a patient's completed or amended [place] Advance and Rescinded Directives. The entries below indicate that a directive exists for the patient, but an actual copy is not included with this document. The data comes from all [place] facilities. Date Advance Directives Provider Source July 02, 2022 ADVANCE DIRECTIVE SANDRA BROOKS [facility] Aug 07, 2021 ADVANCE DIRECTIVE SAHARADHA [facility] [place] Nov 28, 2020 ADVANCE DIRECTIVE GOLDIE DUTTA [facility] [place] Encounter Notes: All associated encounter notes This section contains the clinical notes associated to the Encounter. Date/Time Encounter Note(s) Provider Source June 30, 2023 03:48 PM ADMINISTRATIVE NOTE: LOCAL TITLE: CCC: SCHEDULING ADMINISTRATION STANDARD TITLE: ADMINISTRATIVE NOTE DATE OF NOTE: JUNE 30, 2023@15:48 ENTRY DATE: JUNE 30, 2023@15:48:44 AUTHOR: MARYAM COREY COSIGNER: URGENCY: STATUS: COMPLETED NEW PRESCRIPTION REQUEST Medication renewal method: Medication renewal requester: Patient The name(s) of the medication(s) is/are: Ozempic 1.0 Patient requesting medication for press set up person 07/01/23 @ 2:pm [facility] PLEASE CALL TO CONFIRM /bienvenido/ HERMANN COREY Signed: 06/30/2023 15:49 Receipt Acknowledged By: 07/01/2023 13:52 /es/ NGUYEN NEFF RN REGISTERED NURSE 07/03/2023 12:46 /es/ LEV OCONNELL MD PHYSICIAN MARYAM COREY [facility]
--- OUTSIDE RECORDS SUMMARY | 2024-02-17 09:32 | XMS_ITS ---
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 Organization [facility] Address [address] [place] [address] Care Team Providers Care Enterprise Account Executive Name Role Phone LEV OCONNELL Primary Care [...] PREFERRED PROVIDER ORGANIZAT ION (PPO) FED EMPLO [facility] Jan 26, 2020 [id number] [phone] ELIZABETH SMILEY JR PATIENT [employer] PREFERRED PROVIDER ORGANIZAT ION (PPO) DWAYNE AL EMPLO [facility] Feb 25, 2016 [id number] ELIZABETH SMILEY JR PATIENT [employer] PREFERRED PROVIDER ORGANIZAT ION (PPO) DWAYNE AL EMPL [facility] Feb 25, 2016 [id number] ELIZABETH SMILEY JR PATIENT A[employer] PREFERRED PROVIDER ORGANIZAT ION (PPO) DWAYNE AL EMPL [facility] Feb 25, 2016 [id number] ELIZABETH SMILEY PATIENT [employer] PREFERRED PROVIDER ORGANIZAT ION (PPO) DWAYNE AL MIO MIMI [place] Feb 24, 2016 [id number] ELIZABETH SMILEY PATIENT [employer] PHARMACY MANAGEMENT PRESCRIPT ION DWAYNE AL EMPLO MIMI Jan 26, 2020 [id number] ELIZABETH SMILEY JR PATIENT [employer] PHARMACY MANAGEMENT PRESCRIPT ION DAIANA Feb 25, 2016 [id number] ELIZABETH SMILEY PATIENT [employer] PHARMACY MANAGEMENT PRESCRIPT ION DWAYNE AL EMPLO MIMI Feb 25, 2016 [id number] ELIZABETH SMILEY PATIENT AETNA RX PRESCRIPT ION DWAYNE AL EMPLO MIMI Feb 25, 2016 [id number] ELIZABETH SMILEY PATIENT AETNA RX PRESCRIPT [facility] Feb 25, 2016 [id number] ELIZABETH SMILEY JR PATIENT [employer] POINT OF SERVICE T[employer]CO Mar 20, 2002 [id number] ELIZABETH SMILEY PATIENT [employer]IG[employer]* POINT OF SERVICE Mar 20, 2002 [id number] ELIZABETH SMILEY PATIENT Selected Encounter This section includes the information on record at [place] for the Encounter. Date/Time Encounter Type Encounter Description Reason Pro vider Source Jun 16, 2023 06:50 AM Outpatient Encounter PRIMARY CARE/MEDICINE IHE Encounter Template Text not used by [place] Plan of Treatment: Future Appointments (+ 6 months) and Future Tests (+/- 45 days) The Plan of Treatment section includes future care activities for the patient from all [place] treatmentfacilities. This section includes future appointments and future orders which are active, pending or scheduled. Future Appointments This section includes appointments that were scheduled to occur 6 months from the date of the Encounter, up to a maximum of 20 appointments. The data comes from all [place] treatment facilities. Appointment Date/Time Appointment Type Appointme nt Facility Name June 24, 2023 03:00 PM AMBULATORY - NONE [facility] [place] [facility] Aug 08, 2023 03:00 PM AMBULATORY - MEDICINE [facility] [place] [facility] Aug 13, 2023 03:10 PM AMBULATORY - MEDICINE [facility] [place] [facility] Sep 04, 2023 01:30 PM AMBULATORY - MEDICINE [place] Sep 29, 2023 02:30 PM AMBULATORY - NONE [facility] [place] [facility] Nov 26, 2023 10:00 AM AMBULATORY - MEDICINE [facility] [place] [facility] Nov 28, 2023 07:35 PM AMBULATORY - MEDICINE [facility] [place] [facility] Lab Results: +/- 30 days of the [...] Range Comment June 18, 2023 07:38 AM [place] [facility] [place] [facility] THYROID T4 FREE(FT4) (WROX) Specimen Type: SERUM No comment entered. Ordering Provider: LEV LIZAMA Report Released Date/Time: Jun 16, 2023 11:42 AM Reporting Lab: [place] [facility] [place] [facility] [address] [facility] [address] Performing Lab: [place] [facility] [place] [facility] [address] [facility] [address] THYROID T4 FREE(FT4) (WROX) 1.50 ng/dL 0.6-1.6 June 18, 2023 07:38 AM [place] [facility] [place] [facility] TSH Specimen Type: SERUM No comment entered. Ordering Provider: LEV LIZAMA Report Released Date/Time: Jun 16, 2023 11:42 AM Reporting Lab: [place] [facility] [place] [facility] [address] [facility] [address] Performing Lab: [place] [facility] [place] [facility] [address] [facility] [address] TSH 0.33 u[IU]/mL L 0.35-5.00 June 18, 2023 07:38 AM [facility] HEMOGLOBIN A1C PANEL Specimen Type: BLOOD [...] Jun 16, 2023 11:42 AM Reporting Lab: [facility] [address] [facility] [address] Performing Lab: [address] [address] HEMOGLOBIN A1C 7.4 H 4.0-5.6 Social History: Smoking Status (Most current) and Tobacco Use (All prior to encounter date) This section includes the most current, and the historical, smoking and tobacco- related health factors from the [place] facility where the Encounter took place. Current Smoking Status This section includes the most current smoking, or tobacco-related health factor, from the [place] facility where the Encounter took place. Date/Time Current Smoking Status Comment Corina ity Feb 18, 2023 02:31 PM VA-TOBACCO FORMER USER [facility] Tobacco Use History This section includes a history of the smoking, or tobacco-related health factors, that were collected on or before the date of the Encounter. The data comes from the [place] facility where the Encounter took place. Date/Time Smoking Status/Tobacco Use Comment F acility Feb 18, 2023 02:31 PM AL-TOBACCO QUIT 15 YRS OR MORE [facility] Dec 31, 2021 01:00 PM VA-TOBACCO FORMER USER [facility] Dec 31, 2021 01:00 PM AL-TOBACCO QUIT 15 YRS OR MORE [facility] Advance Directives: All historical and current Section Date Range: From patient's date of to the date document was created. This section includes ALL of a patient's completed or amended [place] Advance and Rescinded Directives. The entries below indicate that a directive exists for the patient, but an actual copy is not included with this document. The data comes from all [place] facilities. Date Advance Directives Provider Source July 02, 2022 ADVANCE DIRECTIVE SANDRA BROOKS [place] Aug 07, 2021 ADVANCE DIRECTIVE RADHA SAHA DEWITTDafne [place] Nov 28, 2020 ADVANCE DIRECTIVE GOLDIE DUTTA [facility] [place] Encounter Notes: All associated encounter notes This section contains the clinical notes associated to the Encounter. Date/Time Encounter Note(s) Provider Source Jun 16, 2023 06:50 AM PRIMARY CARE [employer] MESSAGING: LOCAL TITLE: PRIMARY CARE SECURE MESSAGING STANDARD TITLE: PRIMARY CARE SECURE MESSAGING DATE OF NOTE: JUN 16, 2023@06:50 ENTRY DATE: JUN 16, 2023@07:50:24 AUTHOR: EDUARDO OHARA EXP COSIGNER: URGENCY: STATUS: COMPLETED PRIMARY CARE SECURE MESSAGING Has ADDENDA ------Original Message ----- Sent: 06/13/2023 04:07 PM ET From: ELIZABETH SMILEY To: Adriane OCONNELL_[facility] Subject: General:Labs I have an appointment with Dr. Marie on June 18 and need blood work for my Thyroid and A1C. Can someone put in a lab slip. /bienvenido/ EDUARDO MENESES Signed: 06/16/2023 07:50 Receipt Acknowledged By: 06/16/2023 11:46 /bienvenido/ NGUYEN NEFF RN REGISTERED NURSE 06/16/2023 15:18 /bienvenido/ MAXIMO HOFFMAN LPN LPN 06/16/2023 ADDENDUM STATUS: COMPLETED Labs placed, notified via secure messaging. /bienvenido/ NGUYEN NEFF RN REGISTERED NURSE Signed: 06/16/2023 11:46 EDUARDO OHARA [facility]
--- OUTSIDE RECORDS SUMMARY | 2024-02-17 09:32 | XMS_ITS | Encounter Summary ---
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 Organization [facility] Address [address] [place] [address] Care Team Providers Care Computer Programming Professor Name Role Phone LEV OCONNELL Primary Care [...] PREFERRED PROVIDER ORGANIZAT ION (PPO) FED EMPLO [facility] Jan 26, 2020 [id number] [phone] ELIZABETH SMILEY JR PATIENT [employer] PREFERRED PROVIDER ORGANIZAT ION (PPO) DWAYNE AL EMPLO [facility] Feb 25, 2016 [id number] ELIZABETH SMILEY JR PATIENT [employer] PREFERRED PROVIDER ORGANIZAT ION (PPO) DWAYNE AL EMPL [facility] Feb 25, 2016 [id number] [phone] ELIZABETH SMILEY JR PATIENT [employer] PREFERRED PROVIDER ORGANIZAT ION (PPO) DWAYNE AL EMPL [facility] Feb 25, 2016 [id number] [id number] ELIZABETH SMILEY PATIENT [employer] PREFERRED PROVIDER ORGANIZAT ION (PPO) DWAYNE AL MIO [facility] Feb 24, 2016 [id number] ELIZABETH SMILEY PATIENT [employer] PHARMACY MANAGEMENT PRESCRIPT ION DWAYNE AL EMPLO MIMI [facility] Jan 26, 2020 [id number] ELIZABETH SMILEY JR PATIENT [employer] PHARMACY MANAGEMENT PRESCRIPT ION ALICIAFT Feb 25, 2016 [id number] ELIZABETH SMILEY PATIENT [employer] PHARMACY MANAGEMENT PRESCRIPT ION DWAYNE AL EMPLO MIMI Feb 25, 2016 [id number] ELIZABETH SMILEY PATIENT [employer] RX PRESCRIPT ION DWAYNE AL EMPLO MIMI [facility] Feb 25, 2016 [id number] ELIZABETH SMILEY PATIENT [employer] RX PRESCRIPT ION FEHBP Feb 25, 2016 [id number] ELIZABETH SMILEY JR PATIENT [employer] POINT OF SERVICE [employer] Mar 20, 2002 [id number] ELIZABETH SMILEY PATIENT [employer]* POINT OF SERVICE Mar 20, 2002 [id number] ELIZABETH SMILEY PATIENT Selected Encounter This section includes the information on record at [place] for the Encounter. Date/Time Encounter Type Encounter Description Reason Provider Source Aug 08, 2023 03:00 PM MTMS BY PHARM ADDL 15 MIN CLINICAL PHARMACY ICD-10-CM E11.9 Type 2 diabetes mellitus without complications AGUSTIN COLEMAN [facility] Encounter Template Text not used by [place] Assessments - Encounter Diagnoses This section includes the primary and secondary diagnoses documented for the Encounter. Date/Time Primary/Secondary Diagnosis Diagnosis Name Provider Source Aug 08, 2023 03:38 PM PRIMARY Type 2 diabetes mellitus without complications RUFINO COLEMAN [facility] Plan of Treatment: Future Appointments (+ 6 months) and Future Tests (+/- 45 days) The Plan of Treatment section includes future care activities for the patient from all [place] treatmentfacilities. This section includes future appointments and future orders which are active, pending or scheduled. Future Appointments This section includes appointments that were scheduled to occur 6 months from the date of the Encounter, up to a maximum of 20 appointments. The data comes from all [place] treatment facilities. Appointment Date/Time Appointment Type Appointme nt Facility Name Aug 13, 2023 03:10 PM AMBULATORY - MEDICINE [facility] [place] [facility] Sep 04, 2023 01:30 PM AMBULATORY - MEDICINE [facility] Sep 29, 2023 02:30 PM AMBULATORY - NONE [facility] [place] [facility] Nov 26, 2023 10:00 AM AMBULATORY - MEDICINE [facility] [place] [facility] Nov 28, 2023 07:35 PM AMBULATORY - MEDICINE [facility] [place] [facility] Dec 29, 2023 01:30 PM AMBULATORY - MEDICINE [facility] [place] [facility] Jan 13, 2024 01:00 PM AMBULATORY - MEDICINE [facility] [place] [facility] Lab Results: +/- 30 days of [...] Result - Unit Interpretation Reference Range Comment Aug 29, 2023 09:29 AM [place] PROTEIN/CREATININE RATIO PANEL, URINE S pecimen Type: URINE No comment entered. Ordering Provider: LEV LIZAAM Report Released Date/Time: Aug 29, 2023 09:24 AM Reporting Lab: [facility] [place] [facility] [address] [address] Performing Lab: [facility] [address] [address] CREATININE URINE 64.72 mg/dL UR PROTEIN/CREATI NINE RATIO 1.6 <0.2 PROTEIN, URINE 102.7 mg/dL H 0.0-20.0 Aug 29, 2023 09:29 AM [facility] ELECTROLYTE PANEL Specimen Type: SERUM No comment entered. Ordering Provider: LEV LIZAMA Report Released Date/Time: Aug 29, 2023 09:24 AM Reporting Lab: [facility] [address] [address] Performing Lab: [facility] [address] [address] SODIUM 141 mmol/L 135-145 POTASSIUM 4.9 mmol/L 3.5-5.0 CHLORIDE 109 mmol/L 100-110 CO2 23 meq/L 20-30 Aug 29, 2023 09:00 AM [place] THYROID T4 FREE(FT4) (WROX) Specimen Ty pe: SERUM No comment entered. Ordering Provider: LEV LIZAMA Report Released Date/Time: Mar 06, 2023 09:49 AM Reporting Lab: [facility] [address] [address] Performing Lab: [facility] [address] [address] THYROID T4 FREE(FT4) (WROX) 1.31 ng/dL 0.6-1.6 Aug 29, 2023 09:00 AM [place] PSA Specimen Type: SERUM No comment entered. Ordering Provider: LEV LIZAMA Report Released Date/Time: Mar 06, 2023 09:35 AM Reporting Lab: [facility] [address] [address] Performing Lab: [facility] [address] [address] PSA < 0.10 ng/mL 0.00-4.00 Aug 29, 2023 09:00 AM [place] VITAMIN D (25-OH) Specimen Type: SERUM No comment entered. Ordering Provider: LEV LIZAMA Report Released Date/Time: Mar 06, 2023 09:49 AM Reporting Lab: [facility] [address] [address] Performing Lab: [facility] [address] [address] VITAMIN D (25-OH) 32 ng/mL 20-50 Aug 29, 2023 09:00 AM [place] VITAMIN B12 Specimen Type: SERUM No comment entered. Ordering Provider: LEV LIZAMA Report Released Date/Time: Mar 06, 2023 09:49 AM Reporting Lab: [facility] [address] [address] Performing Lab: [address] [address] VITAMIN B12 407 pg/mL 200-900 Aug 29, 2023 09:00 AM [facility] HEMOGLOBIN A1C PANEL Specimen Type: BLOOD Comment: Values obtained from A1C measurements can vary. For atypical A1C assays, a reported value of 7.0 could actually be between 6.72 and 7.28 if measured by a reference method. A reported value of 9.0 could actually be between 8.73 and 9.27. Ref: http://www.ngs p.org/CAPdata. asp Ordering Provider: LEV LIZAMA Report Released Date/Time: Mar 06, 2023 09:49 AM Reporting Lab: [address] [address] Performing Lab: [address] [address] HEMOGLOBIN A1C 7.1 H 4.0-5.6 Aug 29, 2023 09:00 AM [facility] MICROALBUMIN CREATININE RATIO PANEL Spe cimen Type: URINE No comment entered. Ordering Provider: LEV LIZAMA Report Released Date/Time: Mar 06, 2023 09:49 AM Reporting Lab: [address] [address] Performing Lab: [address] [address] MICROALBUMIN/C REATININE RATIO 1278.8 mg/g H 0-29.9 MICROALBUMIN,Q UANTITATIVE 82.2 mg/dL RR UNAVAIL CREATININE URINE 64.28 mg/dL Aug 29, 2023 09:00 AM [place] TSH Specimen Type: SERUM No comment entered. Ordering Provider: LEV LIZAMA Report Released Date/Time: Mar 06, 2023 09:49 AM Reporting Lab: [facility] [address] [address] Performing Lab: [facility] [address] [address] TSH 1.25 u[IU]/mL 0.35-5.00 Aug 29, 2023 09:00 AM [place] LIVER FUNCTION Specimen Type: SERUM No comment entered. Ordering Provider: LEV LIZAMA Report Released Date/Time: Mar 06, 2023 09:49 AM Reporting Lab: [facility] [address] [address] Performing Lab: [facility] [address] [address] PROTEIN,TOTAL 6.3 g/dL 6.0-8.3 ALBUMIN 3.7 g/dL 3.5-5.0 ALKALINE PHOSPHATASE 49 U/L 40-150 AST 13 U/L 5-34 ALT 32 U/L BILIRUBIN, TOTAL 0.3 mg/dL 0.2-1.2 Aug 29, 2023 09:00 AM [facility] LIPID PANEL FASTING Specimen Type: SERUM No comment entered. Ordering Provider: LEV LIZAMA Report Released Date/Time: Mar 06, 2023 09:49 AM Reporting Lab: [facility] [address] [address] Performing Lab: [facility] [address] [address] CHOLESTEROL 243 mg/dL H TRIGLYCERIDE 139 mg/dL 0-150 LDL calculated 174 mg/dL H 0-129 CHOL/HDL 5.9 HDL CHOLESTEROL 41 mg/dL 40-60 Aug 29, 2023 09:00 AM [facility] BASIC METABOLIC PANEL (fasting) Specime n Type: SERUM No comment entered. Ordering Provider: LEV LIZAMA Report Released Date/Time: Mar 06, 2023 09:49 AM Reporting Lab: [facility] [address] [address] Performing Lab: [facility] [address] [address] UREA NITROGEN 54 mg/dL H 7-25 GLUCOSE 178 mg/dL H 65-100 SODIUM 141 mmol/L 135-145 POTASSIUM 4.9 mmol/L 3.5-5.0 CHLORIDE 108 mmol/L 100-110 CO2 25 meq/L 20-30 CREATININE, Serum 2.48 mg/dL H 0.50-1.40 eGFR(CKD-EPI 2020) 28 mL/min L >60 Aug 29, 2023 09:00 AM [facility] IRON & TIBC PANEL Specimen Type: SERUM No comment entered. Ordering Provider: LEV LIZAMA Report Released Date/Time: Mar 06, 2023 09:49 AM Reporting Lab: [address] [address] Performing Lab: [address] [address] TIBC 298 ug/dL 204-475 IRON 76 ug/dL 40-160 Transferrin Saturation 25.5 20.0-50.0 Aug 29, 2023 09:00 AM [facility] CBC AND DIFF (AUTO) Specimen Type: BLOOD No comment entered. Ordering Provider: LEV LIZAMA Report Released Date/Time: Mar 06, 2023 09:49 AM Reporting Lab: [address] [address] Performing Lab: [address] [address] WBC 9.47 10*3/uL 4.50-11.00 RBC 5.00 10*6/uL 4.23-5.66 HGB 14.6 g/dL 12.8-17 HCT 44.2 39.2-50.4 MCV 88.4 fL 82-99 MCHC 33.0 g/dL 30.8-35.1 PLT 250 10*3/uL 140-360 RDW-CV 13.0 12.0-16.0 MONO, ABS 0.70 10*3/uL 0.30-1.10 MCH 29.2 pg 26.2-32.6 NEUT % 77.7 H 43.7-75.8 LYMPH % 12.0 L 14.0-42.3 MONO % 7.4 5.1-13.7 EOS % 2.1 0.4-6.8 BASO % 0.2 0.1-2.0 NEUT, ABS 7.35 10*3/uL 2.20-7.60 LYMPH, ABS 1.14 10*3/uL 1.00-3.20 EOS, ABS 0.20 10*3/uL 0.03-0.44 BASO, ABS 0.02 10*3/uL 0.01-0.13 IMMATURE GRAN % 0.6 0.0-0.7 IMMATURE GRAN, ABS 0.06 10*3/uL 0.00-0.06 NRBC % 0.0 0.0-0.0 NRBC, ABS 0.00 10*3/uL 0.00-0.00 Social History: Smoking Status (Most current) and [...] 08, 2021 01:30 PM VA-TOBACCO FORMER USER [place] Tobacco Use History This section includes a history of the smoking, or tobacco-related health factors, that were collected on or before the date of the Encounter. The data comes from the [place] facility where the Encounter took place. Date/Time Smoking Status/Tobacco Use Comment Dafne xiao Jan 08, 2021 01:30 PM VA-TOBACCO QUIT 15 YRS OR MORE [facility] Jun 10, 2019 09:30 AM VA-TOBACCO FORMER USER [facility] Jun 10, 2019 09:30 AM VA-TOBACCO QUIT 15 YRS OR MORE [facility] Dec 04, 2017 11:51 AM VA-TOBACCO FORMER USER [facility] Dec 04, 2017 11:51 AM VA-TOBACCO QUIT 15 YRS OR MORE [facility] May 19, 2017 02:36 PM QUIT TOBACCO USE > 7 YEARS AGO [facility] May 15, 2016 10:07 AM QUIT TOBACCO USE > 7 YEARS AGO reports quitting 27 years ago [facility] Mar 21, 2015 02:13 PM QUIT TOBACCO USE > 7 YEARS AGO quit 04/11/1989, smoker 3 ppd x 10 yrs [facility] Oct 20, 2003 03:02 PM HISTORY OF SMOKING stopped tobacco 14 years ago [facility] Sep 14, 2002 09:25 AM HISTORY OF SMOKING quit 13 years ago [facility] Nov 25, 2001 10:54 AM QUIT TOBACCO USE > 7 YEARS AGO quit [facility] Sep 15, 2001 10:23 AM HISTORY OF SMOKING quit 12 years ago 04/11/1989 [facility] Advance Directives: All historical and current Section Date Range: From patient's date of to the date document was created. This section includes ALL of a patient's completed or amended [place] Advance and Rescinded Directives. The entries below indicate that a directive exists for the patient, but an actual copy is not included with this document. The data comes from all [place] facilities. Date Advance Directives Provider Source July 02, 2022 ADVANCE DIRECTIVE SANDRA BROOKS [place] Aug 07, 2021 ADVANCE DIRECTIVE RADHA SAHA [facility] [place] Nov 28, 2020 ADVANCE DIRECTIVE MARLON DUTTACY MITCH [facility] [place] Encounter Notes: All associated encounter notes This section contains the clinical notes associated to the Encounter. Date/Time Encounter Note(s) Provider Source Aug 08, 2023 03:11 PM PHARMACY OUTPATIEN T NOTE: LOCAL TITLE: PHARMACY CLINIC NOTE STANDARD TITLE: PHARMACY OUTPATIENT NOTE DATE OF NOTE: AUG 08, 2023@15:11 ENTRY DATE: AUG 08, 2023@15:11:51 AUTHOR: UMESH COLEMAN COSIGNER: URGENCY: STATUS: COMPLETED Patient Name: ELIZABETH SMILEY JR was seen via [facility] for follow-up for diabetes management treatment. : Dec Age: 63 Sex: MALE Race: DECLINED TO ANSWER Subjective: Pt has not been seen by this keno writer/runner since November,. Dr. Irizarry non-VA PCp has seen pt in May and has increased ozempic to 1mg from 0.5 mg; jardiance dose remained the same. Pt admits to some dietary indescretions. He is otherwise doing well and states through exercise program he has regained a lot of muscle strength. Per prev: Pt presents for f/up. tolerating ozempic well on dose of 0.5 mg x 6 weeks. He has had repeated labs. Per prev: Pt presents for a f/up. He was trained on ozempic in July and started on that. Pt's metformin has been discontinued. Pt states he is doing well on ozempic but complains his BG is high in 130-140's which is much higher than while he was on metformin? Per prev: Pt presents to a visit for semaglutide (ozempic) training. Pt's is not attending the visit but pt is taking notes to share with her later. Pt has met w/ [facility] PCP who is in agreement to start ozempic and slowly eliminate need for metformin. Per prev: Pt presents for the flip pro upload and evaluation. Pt states he is doing well. He has had no changes in medication regimen since the last visit. Per prev: Pt presents to the visit stating he will stand during the visit d/t back /sciatica pain. Pt was referred by [facility] PCP out of concern of pt remiaing on metformin while his renal function is deteriorating. 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 Consider starting GLP-1 RA.Patient instructed to cut down carbs intake, try to lose weight. Per pt's report the A1C jumped from 6 to 7% after he started to drink 7up. He has since stopped. Pt reports to have had DM x 15 years. Pt reports to have been diagnsed w/ Focal Segmental glomerulosclerosis (FSGS) in 1988. Pt is followed by [facility] and renal team since - Dr. Álvarez. He is also being followed by non-VA joe Vasquez. He has been seen by both this past month. He states both counseled pt he may remain on metfomrin per pt's report. Based on the report, he continues w/ the metformin 500 mg bid dose. Target Goals: A1C: 7%; FB-130 mg/dL; 2HRS PP <180mg/dL. Allergies: SPIRONOLACTONE, LOVASTATIN, KETOROLAC TROMETHAMINE NONSTEROIDAL ANTI-INFLAMMATORY PERTINENT INFORMATION: Active problems - Computerized Problem List is the source for the followin. Cramp in lower leg 2. Constipation 3. Anemia (SCT 364872336) 4. Erectile Dysfunction (SCT 260883379) 5. Chronic kidney disease stage 4 6. Obstructive sleep apnea syndrome 7. Insomnia 8. Lumbar radiculopathy 9. History of excision of lamina of lumbar vertebra for decompression of spinal 10. Allergic rhinitis 11. Screening for Malignant Neoplasms of colon 12. Focal glomerulonephritis (SNOMED CT 42444739) 13. Obesity (SNOMED CT 471430099) 14. Hypothyroid (SNOMED CT 17906647) 15. Diabetes mellitus type 2 without retinopathy (SNOMED CT 3040116520042) 16. PROSTATE, MALIGN NEOPLASM 17. Nephrotic syndrome 18. Hyperlipidemia (SNOMED CT 89804305) 19. Benign essential hypertension (SNOMED CT 3646716) Objective: Objective: Diabetes Medication Regimen: -- empagliflozin 10 mg daily - started ~2 years ago ; eGFR 32 11/28/22 eGFR 33ml/min on 02/2023 -- semaglutide 1 mg weekly (fridays) - - incresaed dose to 1 mg in May, Previous DM Medications: -- glyburdie -- metfromin - stopped 07/2022 Hyperlipidemia fish oil got maday k on it week ago atorvastatin 40 mg daily Adherence: Oral meds: denies missed doses Insulin: denies missed doses Labs: HEMOGLOBIN A1C TREND Collection DT Spec HGBA1c 06/18/2023 07:38 BLOOD 7.4 H 02/21/2023 07:49 BLOOD 7.0 H 11/28/2022 10:27 BLOOD 6.7 H 06/24/2022 07:32 BLOOD 7.6 H 12/26/2021 07:38 BLOOD 6.9 H CBC TREND Collection DT Spec WBC RBC HGB HCT MCV MCH PLT 02/21/2023 07:49 BLOOD 6.00 4.32 12.8 38.8 L 89.8 29.6 222 11/28/2022 10:27 BLOOD 5.45 4.66 13.6 41.1 88.2 29.2 242 06/24/2022 07:32 BLOOD 6.82 4.10 L 12.0 L 36.8 L 89.8 29.3 227 12/26/2021 07:38 BLOOD 7.01 4.18 L 12.2 L 36.7 L 87.8 29.2 228 09/01/2020 11:23 BLOOD 6.94 4.01 L 12.1 L 36.0 L 89.8 30.2 243 CHEM 7 TREND LAB CUMULATIVE SELECTED Collection DT Spec GLUCOSE BUN CREATIN Sodium K+/Pot CL CO2 02/21/2023 07:49 [facility] 155 H 47 H 2.19 H 140 4.8 106 26 11/28/2022 10:27 SERUM 152 H 49 H 2.26 H 139 5.1 H 105 26 06/24/2022 07:32 SERUM 216 H 56 H 2.43 H 139 4.5 107 24 12/26/2021 07:38 SERUM 160 H 52 H 2.22 H 138 4.9 102 28 11/28/2020 08:48 SERUM 137 H 39 H 1.60 H 137 4.7 105 22 Collection DT Spec eGFR 10/19/2008 07:40 SERUM >60 03/17/2008 07:58 SERUM >60 06/12/2007 07:41 SERUM >60 11/07/2006 07:46 SERUM >60 05/09/2006 08:26 SERUM >60 LAB CUMULATIVE SELECTED 2 No selection items chosen for this component. CHEM 7 Results Collection DT Spec Sodium K+/Pot CL CO2 GLUCOSE BUN eGFR 02/21/2023 07:49 SERUM 140 4.8 106 26 155 H 47 H 11/28/2022 10:27 SERUM 139 5.1 H 105 26 152 H 49 H 06/24/2022 07:32 SERUM 139 4.5 107 24 216 H 56 H 12/26/2021 07:38 SERUM 138 4.9 102 28 160 H 52 H 11/28/2020 08:48 SERUM 137 4.7 105 22 137 H 39 H 09/01/2020 11:23 SERUM 141 4.9 105 25 144 H 41 H 03/20/2020 09:39 SERUM 139 4.6 103 29 108 H 42 H 01/18/2020 08:27 SERUM 139 4.4 103 27 114 H 38 H 02/25/2019 07:15 SERUM 138 4.7 104 27 212 H 30 H 11/24/2018 11:27 SERUM 138 4.6 101 28 204 H 33 H 05/26/2018 07:43 SERUM 137 4.6 104 25 204 H 32 H 12/01/2017 08:01 SERUM 33 H 08/26/2017 07:43 SERUM 139 4.6 103 29 171 H 27 H 05/19/2017 14:49 SERUM 139 4.9 103 29 174 H 27 H 02/07/2017 12:46 SERUM 136 4.4 101 27 179 H 25 11/13/2016 07:52 SERUM 139 4.7 106 25 185 H 37 H 07/23/2016 13:39 SERUM 139 4.9 104 27 162 H 24 04/10/2016 07:34 SERUM 139 4.6 105 27 184 H 23 03/17/2015 07:40 SERUM 138 5.3 H 104 27 174 H 32 H 07/20/2014 08:10 SERUM 145 H 04/12/2014 07:42 SERUM 141 4.7 106 27 131 H 23 10/04/2013 07:36 SERUM 141 4.5 107 26 117 H 25 02/24/2013 13:57 SERUM 140 4.6 107 29 137 H 23 07/16/2012 08:02 SERUM 137 4.9 103 26 173 H 28 H 08/20/2011 08:48 SERUM 139 4.8 106 25 113 H 32 H 06/11/2010 07:56 SERUM 139 4.8 105 25 148 H 28 H 10/19/2008 07:40 SERUM 139 4.5 103 26 125 H 25 >60 03/17/2008 07:58 SERUM 139 4.5 106 25 117 H 27 H >60 06/12/2007 07:41 SERUM 141 4.3 105 28 98 22 >60 11/07/2006 07:46 SERUM 140 4.8 108 22 127 H 27 H >60 05/09/2006 08:26 SERUM 143 4.2 107 26 99 17 >60 03/22/2004 08:06 SERUM 137 4.5 103 28 131 H 17 10/14/2003 08:28 SERUM 136 4.0 103 26 117 H 15 09/07/2002 10:37 SERUM 122 H 09/07/2002 07:36 SERUM 138 4.3 102 27 164 H 10 08/06/2002 10:09 SERUM 259 H 08/06/2002 07:23 SERUM 138 4.4 102 28 228 H 17 05/10/2002 07:17 SERUM 137 4.4 101 27 18 03/26/2002 07:20 SERUM 137 4.4 103 28 207 H 13 11/18/2001 09:06 SERUM 138 4.5 104 27 161 H 20 09/18/2001 10:12 SERUM 140 4.2 105 29 132 H 13 08/16/1994 13:49 SERUM 14 06/26/1994 07:48 SERUM 110 06/26/1994 07:47 SERUM 13 06/18/1994 07:22 SERUM 143 4.3 108 28 118 05/08/1994 07:27 SERUM 142 4.4 104 canc 115 16 03/22/1994 16:30 SERUM 144 4.2 107 27 103 02/25/1994 14:07 SERUM 183 H 02/01/1994 16:19 SERUM 3.8 373 H 12/19/1993 07:30 SERUM 145 3.8 103 35 H 175 H 18 10/31/1993 07:34 SERUM 135 H 10/16/1993 16:20 SERUM 138 4.0 99 28 261 H 20 09/10/1993 07:28 SERUM 109 08/21/1993 08:32 SERUM 130 H 08/15/1993 15:02 SERUM 141 4.2 98 33 H 277 H 26 H 07/13/1993 16:00 SERUM 3.9 06/18/1993 15:56 SERUM 141 4.4 101 28 19 05/14/1993 15:05 SERUM 124 H 02/23/1992 07:45 SERUM 138 4.2 106 29 118 15 LIPID PANEL TREND Collection DT Spec CHOL HDL CHO/HDL LDL-c TRIG 02/21/2023 07:49 SERUM 181 27 L 6.7 105 244 H 06/24/2022 07:32 SERUM 157 34 L 4.6 103 98 12/26/2021 07:38 SERUM 166 43 3.9 102 105 09/01/2020 11:23 SERUM 165 35 L 4.7 92 192 H 01/18/2020 08:27 SERUM 176 34 L 5.2 118 119 THYROID PANEL Collection DT Specimen Test Name Result Units Ref Range 06/18/2023 07:38 SERUM TSH 0.33 L uIU/mL 0.35 - 5.00 10/19/2008 07:40 SERUM !! THYROID TOTAL T4 10.2 ug/dL 4.5 - 12.0 06/18/2023 07:38 SERUM Free T4 SR-REF 1.50 ng/dL 0.6 - 1.6 !! Indicates COMMENTS AVAILABLE...Refer to Interim Lab Report. VITAMIN D 25-OH Collection DT Specimen Test Name Result Units Ref Range 06/24/2022 07:32 [facility] VITAMIN D (25-OH) 34 ng/mL 20 - 50 ---- LIPID PANEL ---- SERUM Feb 21 June 24 Dec 26 Reference 2023 2022 2021 07:49 07:32 07:38 Units Ranges CHOL 181 157 166 mg/dL <7 - 199 TRIG 244 H 98 105 mg/dL 0 - 150 HDL 27 L 34 L 43 mg/dL 40 - 60 LDL-d mg/dL <10 - 120 LDL 105 103 102 mg/dL 0 - 129 CHO/HDL 6.7 4.6 3.9 Comments: dafne grimm SrCr (last 6 weeks): CREATININE-EGFR - NONE FOUND CRCL IBW: CrCl(est): 38.5 mL/min (Creat:2.19 02/21/23) CRCL ACT: No Creat CRCL ADJ: 38.5 mL/min (02/21/23) LFT;s wnl 06/2022 Vitals: Weight (BMI): 232.2 lb [105.32 kg] (06/24/2023 15:10) Height: 67 in [170.2 cm] (03/01/2019 13:42) BMI: 36.4 Active and Recently Outpatient Medications (including Supplies): Active Outpatient Medications Status Active Outpatient Medications (including Supplies): ALCOHOL PREP PAD USE 1 PAD TOPICALLY ONCE DAILY TO CLEAN ACTIVE SKIN FOR INJECTION ETC AMLODIPINE BESYLATE 5MG TAB TAKE ONE TABLET BY MOUTH ONCE ACTIVE (S) DAILY FOR BLOOD PRESSURE/HEART, DO NOT TAKE WITH GRAPEFRUIT JUICE ATORVASTATIN CALCIUM 80MG TAB TAKE ONE-HALF TABLET BY ACTIVE (S) MOUTH ONCE DAILY FOR CHOLESTEROL BACLOFEN 10MG TAB TAKE ONE TABLET BY MOUTH THREE TIMES A ACTIVE DAY FOR MUSCLE RIGIDITY (REPLACES CYCLOBENZAPRINE) CARBOXYMETHYLCELLULOSE NA 0.5% OPH SOLN INSTILL 1 DROP ACTIVE INTO EACH EYE FOUR TIMES A DAY FOR DRY EYE CHOLECALCIF 25MCG (D3-1,000UNIT) TAB TAKE ONE TABLET BY ACTIVE (S) MOUTH ONCE DAILY FOR VITAMIN SUPPLEMENTATION CLONAZEPAM 0.5MG TAB TAKE ONE TABLET BY MOUTH THREE TIMES ACTIVE A DAY EMPAGLIFLOZIN 10MG TAB TAKE ONE TABLET BY MOUTH ONCE DAILY ACTIVE (S) FOR DIABETES IRBESARTAN 300MG TAB TAKE ONE TABLET BY MOUTH ONCE DAILY ACTIVE FOR HIGH BLOOD PRESSURE LEVOTHYROXINE NA (SYNTHROID) 100MCG TAB TAKE TWO TABLETS ACTIVE BY MOUTH FRI, FRI, FRI, FRI, FRI, & FRI AND TAKE ONE TABLET ON FRIDAY FOR THYROID - TAKE ON AN EMPTY STOMACH WITH A FULL GLASS OF WATER LUBRICATING (PF) OPH OINT APPLY THIN RIBBON INTO EACH EYE ACTIVE AT BEDTIME FOR DRY EYE SEMAGLUTIDE 1MG/0.75ML INJ PEN 3ML INJECT 1MG ACTIVE SUBCUTANEOUSLY ONCE A WEEK FOR TYPE 2 DIABETES MELLITUS Non-VA ACETAMINOPHEN 325MG TAB 325MG BY MOUTH NEEDED ACTIVE Non-VA ASPIRIN 81MG EC TAB 81MG BY MOUTH ONCE DAILY ACTIVE Non-VA DOCUSATE NA CAP,ORAL 50MG BY MOUTH TWICE DAILY ACTIVE Non-VA FISH OIL 1000MG (500MG DHA/EPA) CAP 1000MG BY MOUTH ACTIVE TWICE DAILY Non-VA MAGNESIUM OXIDE 250MG TAB 500MG BY MOUTH AT BEDTIME ACTIVE Non-VA MAGNESIUM OXIDE 250MG TAB 500MG BY MOUTH ONCE DAILY ACTIVE Non-VA POLYETHYLENE GLYCOL 3350 ORAL PWDR 17 GRAMS(FILL ACTIVE CAP TO 17GM LINE) BY MOUTH ONCE DAILY NEEDED MEDICATION RECONCILIATION:done BLOOD GLUCOSE MONITORING Date: 07/24/22 fasting bg avmg/dl; (n=8 ; range: 122-192 mg/dl) before lunch avmg/dl; (n=8; range: 135-223mg/dl) before dinner avmg/dl; (n=9; range: 117-347mg/dl) bedtime avmg/dl; (n=3; range: 169-290mg/dl) Date: 08/07/22 [employer] pro upload: 15 day avmg/dl 1% VERY HIGH 14% HIGH 85% TARGET RANGE 0% LOW 0% VERY LOW Low glucose events: 1 ; avg duration: 60 minutes A SEPERATE UPLOAD CAN BE FOUND UNDER A SEPERATE NOTE IN CPRS 08/16/22- pt did not bring the meter to the visit 10/18/22: Fasting BG avmg/dl; n=12; range: 126 - 181mg/dl Before lunch avmg/dl; n=5; range: 133-176mg/dl; Before dinner avmg/dl; n=6; range: 122-163mg/dl; Bedtime: 185mg/dl ; n=1 11/29/22: pt did not bring the meter to the visit reprots BG range: 150-170 mg/dl 08/08/23: pt did not bring the meter to the visti reports BG range from 140- 160mg/dl NUTRITION: Diet Patterns: patient eats on avg.3 x/day: B: uzbek muffin w/ peanut butter for breakfast oatmeal or uzbek muffin w/ peanut butter, eggs and sausage for the most part L: low carb bread or low carb wrap , tuna fish, canned chicken ; 2-3 oz of meat adds lettuce, onions, measured portions of chips usually can of tuna fish ; or low carbs wrap ; D: anywhere from 5-7:30 PM; pt works from home ; pt tries pasta home made; freda barba twice d/t running errands ; or [employer] 4 kids, 18 grandkis, errands Snacks:sometimes pretzels , occasionally apple; sometimes some chips or cheez its crackers, tries not to snack at night ; cheeze its ; apple straws night-time snacks: chocolate cake; night before ice cream ; Drinks: water., coffee, tea , cranberry drinks - pt splits it half and half Pt tries to do low carb Exercise: little to none 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 BMI: 36.2 HYPOGLYCEMIC Events: 0 in the last 2 weeks Hypoglycemia recognition & treatment reviewed: Yes EtOH/Illicit drugs: Alcohol: denies Tobacco: denies Other: - Denies personal or fhx thyroid cancer or MENS2 - Denies hx pancreatitis Personal Goals: - Get BG under control - Lose weight Date: 08/12/22 => weight: 233.8 lbs date 10/18/22 => weight: 234 lbs at office, 229 at home scale date: 08/08/23 => weight: 226 lbs - home weight pants size went down from 42 to 40 more muscle tone noted by the Veteranl goal weight 184 lbs Exercise: started at the gym arc operational trainer : 14 - 30 minutes ASSESSMENT/PLAN: Per prev notes: Reviewed w/ the results of flip pro upload. Pt's average is 149 mg/dl w/ 84% in target range. Reviewed the contraindication to being on metformin w/ eGFR <30ml/min. The outside providers are insisting on pt remaining on metformin while [facility] P[facility] is advocating for pt transisitoning to GLP-1 agent as a safer alternative in light of pt's progressive CKD. Weight pros and cons to the decision. Pt wishes for his to be present at the visit to make that decision. The keno writer/runner welcomes spouces and significant others to the discussion per uptodate on empagliflozin: eGFR <30 mL/minute/1.73 m2: Chronic kidney disease (off-label use): No dosage adjustment necessary for eGFR =20 mL/minute/1.73 m2; therapy was not initiated in patients with an eGFR <20 mL/minute/1.73 m2 (Ref). Diabetes mellitus, type 2, treatment: The US envelope machine adjuster does not recommend use for glycemic control; however, in patients previously established on empagliflozin, some experts continue use off label at a dose of 10 mg once daily as a treatment for diabetic kidney disease; renal and heart failure benefits have been shown in patients with an eGFR =20 mL/minute/1.73 m2 (Ref). per Uptodate on metformin: eGFR 30 to 45 mL/minute/1.73 m2: Initiation of therapy: Use generally not recommended (Ref); however, initial therapy with 500 mg once daily with the evening meal titrated to 500 mg twice daily, if tolerated, with close monitoring of kidney function has been recommended by some experts (Ref). Continuation of existing therapy: May continue at a reduced dose up to a maximum of 500 mg twice daily with close monitoring of kidney function (Ref). eGFR <30 mL/minute/1.73 m2: Use is contraindicated. --------- Date: 11/29/22: Pt is tolerating ozempic very well w/ practically no ADR's. REcommend to continue at that dose of 0.5 mg; if dose increase needed will evaluate it then. No medication changes at this time. Will f/up in 6 months. Pt and plan to count calories will eavalute then. Reviewed the labs - pt is doing very well. Date: 08/08/23: Pt is doing very well. Most recent A1C from Jun, 2023 reflects some post prandial BG elevations. Pt is however tolerating increased dose of ozempic very well with no ADR's. Recommend to c/t at that dose. REviewed nutrition. Pt is feeling much stronger and in less pain d/t exercise routine. Reviewed oversnacking. At this time both keno writer/runner and pt decided no future f/up will be done at this time. Pt may reach out at any time if anything changes. DIABETES A1c is above goal of <7% - Medication management Diabetes -- c/t empagliflozin 10 mg daily - started ~2 years ago ; eGFR 29 on 06/2022 eGFR 33ml/min on 02/2023 -- C/T semaglutide (ozempic) 1 mg weekly (Fridays) - Reviewed [place] lab results - Monitor for s/sx hypoglycemia and contact clinic if BG consistently <70mg/dL - Healthy dietary and lifestyle modifications encouraged - cut out soda and snacks at night time. - Repeat A1c:prior to pcp appt in August HTN: recent BP ; amlodipine ; GADIEL-I/ARB - defer to PCP ASCVD: atorvastatin fish oil , asa 81 mg Microalb: mALB/Cr: 1624.9 H mg/G (12/2021) History of Preventive Care: Most recent visit to director foundation:[facility]; pt sees every [address] Lugo Most recent [facility]: [facility]; last visit 2021: 1. Type II Diabetes without evidence of retinopathy or macular edema OU. Clinic's Next Scheduled Follow-up: No future follow up will be made for this [place] No barriers; Patient understands and agrees to current treatment plan. If he has any questions, concerns, or changes in current health status he will call or come in to the [facility]. FUTURE APPOINTMENTS: 01/07/2023 10:00 NHM/OPTOMETRY/NGUYEN/ 03/06/2023 09:00 CWM/SO/PACT 5 DM type is :T2D Length of Visit: 30 minutes PBM PharmD Pharmacotherapy Rem V12: PHARMACIST INTERVENTIONS: TYPE 2 DIABETES MELLITUS Medication monitoring, no dosage change required, continue to monitor and assess /bienvenido/ UMESH COLEMAN CLINICAL BOILER WATER TESTER Signed: 08/11/2023 21:58 Receipt Acknowledged By: 08/13/2023 15:31 /bienvenido/ LEV OCONNELL MD PHYSICIAN UMESH COLEMANFIELD
--- OUTSIDE RECORDS SUMMARY | 2024-02-17 09:32 | XMS_ITS | Encounter Summary ---
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 Address [address] [place] [address] Care Team Providers Care Water Use Inspector Name Role Phone LEV OCONNELL Primary [...] PROVIDER ORGANIZAT ION (PPO) FED EMPLO [facility] Jan 26, 2020 [id number] [phone] ELIZABETH SMILEY JR PATIENT [employer] PREFERRED PROVIDER ORGANIZAT ION (PPO) DWAYNE AL EMPLO [facility] Feb 25, 2016 [id number] [phone] ELIZABETH SMILEY JR PATIENT [employer] PREFERRED PROVIDER ORGANIZAT ION (PPO) DWAYNE AL EMPL [facility] Feb 25, 2016 [id number] ELIZABETH SMILEY JR PATIENT [employer] PREFERRED PROVIDER ORGANIZAT ION (PPO) DWAYNE AL EMPL [facility] Feb 25, 2016 [id number] [phone] ELIZABETH SMILEY PATIENT [employer] PREFERRED PROVIDER ORGANIZAT ION (PPO) DWAYNE AL MIO MIMI [place] Feb 24, 2016 [id number] ELIZABETH SMILEY PATIENT [employer] PHARMACY MANAGEMENT PRESCRIPT ION DWAYNE AL EMPLO MIM[facility] Jan 26, 2020 [id number] ELIZABETH SMILEY JR PATIENT [employer] PHARMACY MANAGEMENT PRESCRIPT ION [place] Feb 25, 2016 [id number] ELIZABETH SMILEY PATIENT [employer] PHARMACY MANAGEMENT PRESCRIPT ION DW[place]NE AL EMPLO MIMI Feb 25, 2016 [id number] ELIZABETH SMILEY PATIENT [employer] RX PRESCRIPT ION [place] EMPLO MIMI Feb 25, 2016 [id number] ELIZABETH SMILEY PATIENT [employer] RX PRESCRIPT [facility]ON [facility] Feb 25, 2016 [id number] [phone] ELIZABETH SMILEY JR PATIENT [employer] POINT OF SERVICE [employer] Mar 20, 2002 [id number] ELIZABETH SMILEY PATIENT [employer]* POINT OF SERVICE Mar 20, 2002 [id number] ELIZABETH SMILEY PATIENT Selected Encounter This section includes the information on record at [place] for the Encounter. Date/Time Encounter Type Encounter Description Reason Pro vider Source July 01, 2023 02:38 PM Outpatient Encounter PRIMARY CARE/MEDICINE IHE Encounter Template Text not used by [place] Plan of Treatment: Future Appointments (+ 6 [...] - MEDICINE [facility] [place] [facility] Aug 13, 2023 03:10 PM AMBULATORY - MEDICINE [facility] [place] [facility] Sep 04, 2023 01:30 PM AMBULATORY - MEDICINE [place] Sep 29, 2023 02:30 PM AMBULATORY - NONE [facility] [place] [facility] Nov 26, 2023 10:00 AM AMBULATORY - MEDICINE [facility] [place] [facility] Nov 28, 2023 07:35 PM AMBULATORY - MEDICINE [facility] [place] [facility] Dec 29, 2023 01:30 PM AMBULATORY - MEDICINE [facility] [place] [facility] Lab Results: +/- 30 days of [...] Comment June 18, 2023 07:38 AM [facility] [place] [facility] THYROID T4 FREE(FT4) (WROX) Specimen Type: SERUM No comment entered. Ordering Provider: LEV LIZAMA Report Released Date/Time: Jun 16, 2023 11:42 AM Reporting Lab: [facility] [place] [facility] [address] [facility] [address] Performing Lab: [facility] [place] [facility] [address] [facility] [address] THYROID T4 FREE(FT4) (WROX) 1.50 ng/dL 0.6-1.6 June 18, 2023 07:38 AM [facility] [place] [facility] TSH Specimen Type: SERUM No comment entered. Ordering Provider: LEV LIZAMA Report Released Date/Time: Jun 16, 2023 11:42 AM Reporting Lab: [facility] [place] [facility] [address] [facility] [address] Performing Lab: [facility] [place] [facility] [address] [facility] [address] TSH 0.33 u[IU]/mL L 0.35-5.00 June 18, 2023 07:38 AM [facility] HEMOGLOBIN A1C PANEL Specimen Type: BLOOD [...] Jun 16, 2023 11:42 AM Reporting Lab: [facility] [address] [facility] [address] Performing Lab: [address] [address] HEMOGLOBIN A1C 7.4 H 4.0-5.6 Social History: [...] 18, 2023 02:31 PM VA-TOBACCO FORMER USER [facility] Tobacco Use History This section includes a history of the smoking, or tobacco-related health factors, that were collected on or before the date of the Encounter. The data comes from the [place] facility where the Encounter took place. Date/Time Smoking Status/Tobacco Use Comment F acility Feb 18, 2023 02:31 PM MS-TOBACCO QUIT 15 YRS OR MORE [facility] Dec 31, 2021 01:00 PM VA-TOBACCO FORMER USER [facility] Dec 31, 2021 01:00 PM MS-TOBACCO QUIT 15 YRS OR MORE [facility] Advance Directives: All historical and [...] July 02, 2022 ADVANCE DIRECTIVE SANDRA BROOKS [place] Aug 07, 2021 ADVANCE DIRECTIVE RADHA SAHA [place] Nov 28, 2020 ADVANCE DIRECTIVE GOLDIE DUTTA [facility] [place] Encounter Notes: All associated encounter notes This section contains the clinical notes associated to the Encounter. Date/Time Encounter Note(s) Provider Source July 03, 2023 08:35 AM ADDENDUM: LOCAL TITLE: Addendum STANDARD TITLE: ADDENDUM DATE OF NOTE: JULY 03, 2023@08:35 ENTRY DATE: JULY 03, 2023@08:35:01 AUTHOR: ABEBE JOHNSON EXP COSIGNER: URGENCY: STATUS: COMPLETED is here today for his medication Clonazepam 0.5mg, states the neurologist Henri Esquivel is retired and is requesting that primary care renew this prescription. /bienvenido/ ABEBE MENESES Signed: 07/03/2023 08:38 Receipt Acknowledged By: 07/04/2023 10:33 /es/ NGUYEN NEFF RN REGISTERED NURSE 07/03/2023 10:32 /es/ MAXIMO HOFFMAN LPN LPN ====== --- Original Document --- 07/01/23 WALK-IN NOTE PRIMARY CARE (T): <====Click to Start Advanced Medical Support presents to the Primary Care clinic with the following request: [ X ]Medication Renewal/Refill [ ]Consultation with Team RN [ ]Symptoms [ ]Other The states they are: [ ]Waiting [ X ]Not Waiting No Walk in visit scheduled with PACT Nurse [ X ] At this encounter the 's demographics were verified. [ X ] At this encounter the 's Insurance information was verified. [ X ] At this encounter the below scheduled visits for the were discussed and appointment reminder card was offered. Future appointments: 08/12/2023 15:00 CWM/SO/NUTRITION1 09/04/2023 13:30 CWM/SO/PACT 5 01/13/2024 13:00 NHM/OPTOMETRY/NGUYEN/ [place] requesting renewal on his medication: Clonazepam 0.5mg [place] would like to burr picker medication when it is ready. /bienvenido/ ABEBE MENESES Signed: 07/01/2023 14:40 Receipt Acknowledged By: 07/01/2023 15:45 /bienvenido/ NGUYEN NEFF RN REGISTERED NURSE 07/02/2023 14:03 /bienvenido/ MAXIMO HOFFMAN LPN LPN 07/01/2023 ADDENDUM STATUS: COMPLETED Forwarding request to prescribing provider. /bienvenido/ NGUYEN NEFF RN REGISTERED NURSE Signed: 07/01/2023 15:45 Receipt Acknowledged By: * AWAITING SIGNATURE * HENRI ESQUIVEL SONYA K [place] July 01, 2023 03:44 PM ADDENDUM: LOCAL TITLE: Addendum STANDARD TITLE: ADDENDUM DATE OF NOTE: JULY 01, 2023@15:44:44 ENTRY DATE: JULY 01, 2023@15:44:44 AUTHOR: NGUYEN NEFFIGNER: URGENCY: STATUS: COMPLETED Forwarding request to prescribing provider. /bienvenido/ NGUYEN NEFF RN REGISTERED NURSE Signed: 07/01/2023 15:45 Receipt Acknowledged By: 07/08/2023 13:06 /bienvenido/ HENRI ESQUIVEL MD PHYSICIAN ====== --- Original Document --- 07/01/23 WALK-IN NOTE PRIMARY CARE (T): <====Click to Start Advanced Medical Support presents to the Primary Care clinic with the following request: [ X ]Medication Renewal/Refill [ ]Consultation with Team RN [ ]Symptoms [ ]Other The [place] states they are: [ ]Waiting [ X ]Not Waiting No Walk in visit scheduled with PACT Nurse [ X ] At this encounter the [place]'s demographics were verified. [ X ] At this encounter the [place]'s Insurance information was verified. [ X ] At this encounter the below scheduled visits for the were discussed and appointment reminder card was offered. Future appointments: 08/12/2023 15:00 CWM/SO/NUTRITION1 09/04/2023 13:30 CWM/SO/PACT 5 01/13/2024 13:00 NHM/OPTOMETRY/NGUYEN/ [place] requesting renewal on his medication: Clonazepam 0.5mg would like to burr picker medication when it is ready. /bienvenido/ ABEBE MENESES Signed: 07/01/2023 14:40 Receipt Acknowledged By: 07/01/2023 15:45 /bashir NEFF RN REGISTERED NURSE 07/02/2023 14:03 /bienvenido/ MAXIMO HOFFMAN LPN LPN 07/03/2023 ADDENDUM STATUS: COMPLETED is here today for his medication Clonazepam 0.5mg, states the neurologist Henri Esquivel is retired and is requesting that primary care renew this prescription. /bienvenido/ ABEBE MENESES Signed: 07/03/2023 08:38 Receipt Acknowledged By: 07/04/2023 10:33 /bienvenido/ NGUYEN NEFF RN REGISTERED NURSE 07/03/2023 10:32 /bienvenido/ MOR TREVIÑO LPN, PAUL [place] July 01, 2023 02:38 PM PRIMARY CARE NOTE: LOCAL TITLE: WALK-IN NOTE PRIMARY CARE (T) STANDARD TITLE: PRIMARY CARE NOTE DATE OF NOTE: JULY 01, 2023@14:38 ENTRY DATE: JULY 01, 2023@14:38:21 AUTHOR: ABEBE JOHNSON EXP COSIGNER: URGENCY: STATUS: COMPLETED WALK-IN NOTE PRIMARY CARE (T) Has ADDENDA <====Click to Start Advanced Medical Support presents to the Primary Care clinic with the following request: [ X ]Medication Renewal/Refill [ ]Consultation with Team RN [ ]Symptoms [ ]Other The [place] states they are: [ ]Waiting [ X ]Not Waiting No Walk in visit scheduled with PACT Nurse [ X ] At this encounter the 's demographics were verified. [ X ] At this encounter the 's Insurance information was verified. [ X ] At this encounter the below scheduled visits for the were discussed and appointment reminder card was offered. Future appointments: 08/12/2023 15:00 CWM/SO/NUTRITION1 09/04/2023 13:30 CWM/SO/PACT 5 01/13/2024 13:00 NHM/OPTOMETRY/NGUYEN/ [place] requesting renewal on his medication: Clonazepam 0.5mg [place] would like to burr picker medication when it is ready. /bienvenido/ ABEBE MENESES Signed: 07/01/2023 14:40 Receipt Acknowledged By: 07/01/2023 15:45 /bienvneido/ NGUYEN NEFF RN REGISTERED NURSE 07/02/2023 14:03 /bienvenido/ MAXIMO HOFFMAN LPN LPN 07/01/2023 ADDENDUM STATUS: COMPLETED Forwarding request to prescribing provider. /bienvenido/ NGUYEN NEFF RN REGISTERED NURSE Signed: 07/01/2023 15:45 Receipt Acknowledged By: * AWAITING SIGNATURE * HENRI ESQUIVEL 07/03/2023 ADDENDUM STATUS: COMPLETED is here today for his medication Clonazepam 0.5mg, states the neurologist Henri Esquivel is retired and is requesting that primary care renew this prescription. /bienvenido/ ABEBE MENESES Signed: 07/03/2023 08:38 Receipt Acknowledged By: * AWAITING SIGNATURE * NGUYEN NEFF * AWAITING SIGNATURE * MAXIMO HOFFMAN SONYA K [place]
--- OUTSIDE RECORDS SUMMARY | 2024-02-17 09:32 | XMS_ITS ---
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 [place] Organization [facility] [place] Address [address] [place] [address] Care Team Providers Care Business Machine Mechanic Name Role Phone LEV OCONNELL Primary Care [...] PREFERRED PROVIDER ORGANIZAT ION (PPO) FED EMPLO [facility] Jan 26, 2020 [id number] ELIZABETH SMILEY JR PATIENT [employer] PREFERRED PROVIDER ORGANIZAT ION (PPO) DWAYNE AL EMPLO [facility] Feb 25, 2016 [id number] [phone] ELIZABETH SMILEY JR PATIENT [employer] PREFERRED PROVIDER ORGANIZAT ION (PPO) DWAYNE AL EMPL [facility] Feb 25, 2016 [id number] ELIZABETH SMILEY JR PATIENT [employer] PREFERRED PROVIDER ORGANIZAT ION (PPO) DWAYNE AL EMPL [facility] Feb 25, 2016 [id number] [id number] ELIZABETH SMILEY PATIENT [employer] PREFERRED PROVIDER ORGANIZAT ION (PPO) DWAYNE AL MIO MIMI [place] Feb 24, 2016 [id number] ELIZABETH SMILEY PATIENT [employer] PHARMACY MANAGEMENT PRESCRIPT ION DWAYNE AL EMPLO MIM[facility] Jan 26, 2020 [id number] ELIZABETH SMILEY JR PATIENT [employer] PHARMACY MANAGEMENT PRESCRIPT ION [place] Feb 25, 2016 [id number] ELIZABETH SMILEY PATIENT [employer] PHARMACY MANAGEMENT PRESCRIPT ION DWAYNE AL EMPLO MIMI Feb 25, 2016 [id number] ELIZABETH SMILEY PATIENT [employer] RX PRESCRIPT ION [place] AL EMPLO [place] Feb 25, 2016 [id number] ELIZABETH SMILEY PATIENT AET[employer] RX PRESCRIPT ION [facility] Feb 25, 2016 [id number] [id number] ELIZABETH SMILEY JR PATIENT [employer] POINT OF SERVICE [employer] Mar 20, 2002 [id number] ELIZABETH SMILEY PATIENT [employer]* POINT OF SERVICE Mar 20, 2002 [id number] ELIZABETH SMILEY PATIENT Selected Encounter This section includes the information on record at [place] for the Encounter. Date/Time Encounter Type Encounter Description Reason Pro vider Source July 18, 2023 09:48 AM Outpatient Encounter COMMUNITY CARE CONSULT IHE [...] - MEDICINE [facility] [place] [facility] Aug 13, 2023 03:10 PM AMBULATORY - MEDICINE [facility] [place] [facility] Sep 04, 2023 01:30 PM [facility] Sep 29, 2023 02:30 PM AMBULATORY - NONE [facility] [place] [facility] Nov 26, 2023 10:00 AM AMBULATORY - MEDICINE [facility] [place] [facility] Nov 28, 2023 07:35 PM AMBULATORY - MEDICINE [facility] [place] [facility] Dec 29, 2023 01:30 PM AMBULATORY - MEDICINE [facility] [place] [facility] Jan 13, 2024 01:00 PM AMBULATORY - MEDICINE [place] [place] [facility] Social History: Smoking Status (Most current) [...] 18, 2023 02:31 PM [facility] Tobacco Use History This section includes a history of the smoking, or tobacco-related health factors, that were collected on or before the date of the Encounter. The data comes from the [place] facility where the Encounter took place. Date/Time Smoking Status/Tobacco Use Comment F acility Feb 18, 2023 02:31 PM VA-TOBACCO QUIT 15 YRS OR MORE [place] [facility] [facility] Dec 31, 2021 01:00 PM VA-TOBACCO FORMER USER [place] [facility] [place] [facility] Dec 31, 2021 01:00 PM VA-TOBACCO QUIT [facility]RS [facility] Advance Directives: All historical and [...] 02, 2022 ADVANCE DIRECTIVE SANDRA BROOKS [facility] Aug 07, 2021 ADVANCE DIRECTIVE RADHA SAHA [place] Nov 28, 2020 ADVANCE DIRECTIVE GOLDIE DUTTA [facility] [place] Encounter Notes: All associated encounter notes This section contains the clinical notes associated to the Encounter. Date/Time Encounter Note(s) Provider Source July 18, 2023 09:48 AM ADMINISTRATIVE NOTE: LOCAL TITLE: ADMINISTRATIVE NOTE STANDARD TITLE: ADMINISTRATIVE NOTE DATE OF NOTE: JULY 18, 2023@09:48 ENTRY DATE: JULY 18, 2023@09:48:24 AUTHOR: AMY STALLINGS EXP COSIGNER: URGENCY: STATUS: COMPLETED Community care provider is requesting a continuation of care referral, prior auth has will 08/03/2023 for [facility]- pain management. Next appointment is schedule for 08/07/23. [facility] [address] [place] [address], [address] [place] [address] /F: [phone] Please submit new community care pain management consult if in agreement. /bienvenido/ AMY STALLINGS ADVANCED COMPLAINT EVALUATION SUPERVISOR Signed: 07/18/2023 09:50 Receipt Acknowledged By: 07/18/2023 11:22 /es/ NGUYEN NEFF RN REGISTERED NURSE 07/18/2023 10:05 /es/ LEV OCONNELL MD PHYSICIAN AMY STALLINGS [facility]
--- OUTSIDE RECORDS SUMMARY | 2024-02-17 09:32 | XMS_ITS | Encounter Summary ---
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 [place] Address [address] [place] [address] Care Team Providers Care Lye Machine Operator Name Role Phone LEV OCONNELL [...] (PPO) FED EMPLO YE Jan 26, 2020 [id number] [phone] ELIZABETH SMILEY JR PATIENT [employer] PREFERRED PROVIDER ORGANIZAT ION (PPO) [place] EMPLO YE Feb 25, 2016 [id number] ELIZABETH SMILEY JR PATIENT [employer] PREFERRED PROVIDER ORGANIZAT ION (PPO) [place] AL EMPL [facility] Feb 25, 2016 [id number] ELIZABETH SMILEY JR PATIENT [employer] PREFERRED PROVIDER ORGANIZAT ION (PPO) DW[place]NE AL EMPL [facility] Feb 25, 2016 [id number] ELIZABETH SMILEY PATIENT [employer] PREFERRED PROVIDER ORGANIZAT ION (PPO) [place] AL EMPLO MIMI COOLEY Feb 24, 2016 [id number] ELIZABETH SMILEY PATIENT [employer] PHARMACY MANAGEMENT PRESCRIPT ION [place] EMPLO MIMI COOLEY Jan 26, 2020 [id number] ELIZABETH SMILEY JR PATIENT [employer] PHARMACY MANAGEMENT PRESCRIPT ION DAIANA Feb 25, 2016 [id number] ELIZABETH SMILEY PATIENT [employer] PHARMACY MANAGEMENT PRESCRIPT ION [place] EMPLO MIMI Feb 25, 2016 [id number] ELIZABETH SMILEY PATIENT [employer] RX PRESCRIPT ION [place] EM[place]O MIMI Feb 25, 2016 [id number] ELIZABETH SMILEY PATIENT AETNA RX PRESCRIPT ION [facility] Feb 25, 2016 [id number] BALJIT BELCHERELIZABETH PATIENT [employer] POINT OF SERVICE [employer] Mar 20, 2002 [id number] ELIZABETH SMILEY PATIENT [employer]* POINT OF SERVICE Mar 20, 2002 [id number] BALJIT ELIZABETH PATIENT Selected Encounter This section includes the information on record at [place] for the Encounter. Date/Time Encounter Type Encounter Description Reason Pro vider Source June 19, 2023 02:15 PM Outpatient Encounter ADMIN PAT ACTIVTIES (MASNONCT) IHE Encounter Template Text not used by [place] Plan of Treatment: Future Appointments (+ 6 months) and Future Tests (+/- 45 days) The Plan of Treatment section includes future care activities for the patient from all [place] treatmentfacilities. This section includes future appointments and future orders which are active, pending or scheduled. Future Appointments This section includes appointments that were scheduled to occur 6 months from the date of the Encounter, up to a maximum of 20 appointments. The data comes from all [place] treatment facilities. Appointment Date/Time Appointment Type Appointme nt Facility Name June 24, 2023 03:00 PM AMBULATORY [facility] NONE [facility] [place] [facility] Aug 08, 2023 03:00 PM AMBULATORY - MEDICINE [facility] [place] [facility] Aug 13, 2023 03:10 PM AMBULATORY - MEDICINE [facility] [place] [facility] Sep 04, 2023 01:30 PM [facility]ULATORY - MEDICINE [facility] Sep 29, 2023 02:30 PM AMBULATORY - NONE [facility] [place] [facility] Nov 26, 2023 10:00 AM AMBULATORY - MEDICINE [place] [facility] [place] [facility] Nov 28, 2023 07:35 PM [facility] Lab Results: +/- 30 days of the encounter This section includes the Chemistry and Hematology Lab Results on record with [place] for the patient. Radiology Reports and Pathology Reports are provided separately, in subsequent sections. Lab Results This section contains the Chemistry/Hematology Results that were resulted 30 days before or 30 daysafter the date of the Encounter. Date/Time Source Result Type Result - Unit Interpretation Reference Range Comment June 18, 2023 07:38 AM [facility] THYROID T4 FREE(FT4) (WROX) Specimen Type: SERUM No comment entered. Ordering Provider: LEV LIZAMA Report Released Date/Time: Jun 16, 2023 11:42 AM Reporting [facility] [address] [address] Performing Lab: [facility] [address] [facility] [address] THYROID T4 FREE(FT4) (WROX) 1.50 ng/dL 0.6-1.6 June 18, 2023 07:38 AM [facility] HEMOGLOBIN A1C PANEL Specimen Type: BLOOD [...] Jun 16, 2023 11:42 AM Reporting Lab: [facility] [address] [address] Performing Lab: [facility] [address] [address] HEMOGLOBIN A1C 7.4 H 4.0-5.6 June 18, 2023 07:38 AM [facility] TSH Specimen Type: SERUM No comment entered. Ordering Provider: LEV LIZAMA Report Released Date/Time: Jun 16, 2023 11:42 AM Reporting Lab: [facility]RDE[facility]TR[facility]USE[address] [address] Performing Lab: [facility]ENTERUSETS [address] [address] TSH 0.33 u[IU]/mL L 0.35-5.00 Social History: Smoking Status (Most current) and Tobacco Use (All prior to encounter date) This section includes the most current, and the historical, smoking and tobacco- related health factors from the [place] facility where the Encounter took place. Current Smoking Status This section includes the most current smoking, or tobacco-related health factor, from the [place] facility where the Encounter took place. Date/Time Current Smoking Status Comment Corina ity Feb 18, 2023 02:31 PM VA-TOBACCO FORMER [facility]ER [facility] Tobacco Use History This section includes a history of the smoking, or tobacco-related health factors, that were collected on or before the date of the Encounter. The data comes from the [place] facility where the Encounter took place. Date/Time Smoking Status/Tobacco Use Comment F acility Feb 18, 2023 02:31 PM VA-TOBACCO QUIT 15 YRS OR MORE [place] [facility] [place] [facility] Dec 31, 2021 01:00 PM VA-TOBACCO FORMER USER [place] [facility] [place] [facility] Dec 31, 2021 01:00 PM VA-TOBACCO QUIT 15 YRS OR MORE [facility] Advance Directives: All historical and current Section Date Range: From patient's date of to the date document was created. This section includes ALL of a patient's completed or amended VA Advance and Rescinded Directives. The entries below indicate that a directive exists for the patient, but an actual copy is not included with this document. The data comes from all [place] facilities. Date Advance Directives Provider Source July 02, 2022 ADVANCE DIRECTIVE SANDRA BROOKS [place] [place] Aug 07, 2021 ADVANCE DIRECTIVE [place] Nov 28, 2020 ADVANCE DIRECTIVE GOLDIE DUTTA [facility] Encounter Notes: All associated encounter notes This section contains the clinical notes associated to the Encounter. Date/Time Encounter Note(s) Provider Source June 19, 2023 02:15 PM ADMINISTRATIVE NOT E: LOCAL TITLE: CCC: SCHEDULING ADMINISTRATION STANDARD TITLE: ADMINISTRATIVE NOTE DATE OF NOTE: JUNE 19, 2023@14:15:55 ENTRY DATE: JUNE 19, 2023@14:15:55 AUTHOR: DESIRAE DON COSIGNER: URGENCY: STATUS: COMPLETED CCC: SCHEDULING ADMINISTRATION Has ADDENDA Patient Demographics Patient Name: ELIZABETH SMILEY Patient Primary Phone: [phone] Patient Primary [address]: [address] [place] [address] [place] [address] Patient : 1960 Patient Age: 63 Caller/Recipient Relation to Patient: Self Administrative Administrative Note Comments: is requesting a call back at [phone] to have the lab results for Thyroid and A1C completed 06/18/2023 faxed to [facility] [employer] . ''I have an appointment today 06/19/2023 at 03:40PM and they need the lab results. Can you please fax to [phone].'' /bienveindo/ DESIRAE DON Signed: 06/19/2023 14:16 Receipt Acknowledged By: 06/19/2023 15:01 /es/ NGUYEN NEFF RN REGISTERED NURSE 06/20/2023 11:44 /es/ MAXIMO HOFFMAN LPN LPN 06/19/2023 ADDENDUM STATUS: COMPLETED Results faxed to Dr. Cowan's office. Attempted to confirm receipt with staff, who state they have not received, number verified. Green Marketing Analyst offered to provide direct number to discuss, declined by staff. [place] contacted via telephone, informed of status and provided results verbally. will contact PACT if needed during visit. /bienvenido/ NGUYEN NEFF RN REGISTERED NURSE Signed: 06/19/2023 15:01 DESIRAE DON [facility]
--- OUTSIDE RECORDS SUMMARY | 2024-02-17 09:32 | XMS_ITS | Encounter Summary ---
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 [place] Organization [place] Address [address] [place] [address] Care Team Providers Care Food Supervisor Name Role Phone LEV OCONNELL Primary Care [...] PREFERRED PROVIDER ORGANIZAT ION (PPO) FED EMPLO [facility] Jan 26, 2020 [id number] [phone] ELIZABETH SMILEY JR PATIENT [employer] PREFERRED PROVIDER ORGANIZAT ION (PPO) DWAYNE AL EMPLO [facility] Feb 25, 2016 [id number] [phone] ELIZABETH SMILEY JR PATIENT [employer] PREFERRED PROVIDER ORGANIZAT ION (PPO) DWAYNE AL EMPL [facility] Feb 25, 2016 [id number] [phone] ELIZABETH SMILEY JR PATIENT [employer] PREFERRED PROVIDER ORGANIZAT ION (PPO) DW[place]NE AL EMPL [facility] Feb 25, 2016 [id number] ELIZABETH SMILEY PATIENT [employer] PREFERRED PROVIDER ORGANIZAT ION (PPO) DWAYNE AL EMPLO MIMI COOLEY Feb 24, 2016 [id number] ELIZABETH SMILEY PATIENT [employer] PHARMACY MANAGEMENT PRESCRIPT ION [place] AL EMPLO MIMI COOLEY Jan 26, 2020 [id number] ELIZABETH SMILEY JR PATIENT [employer] PHARMACY MANAGEMENT PRESCRIPT ION DA[place]NA Feb 25, 2016 [id number] [phone] ELIZABETH SMILEY PATIENT [employer] PHARMACY MANAGEMENT PRESCRIPT ION DW[place]NE AL EMPLO MIMI Feb 25, 2016 [id number] ELIZABETH SMILEY PATIENT [employer]ET[employer] RX PRESCRIPT ION [place] EMPLO MIMI COO[place] Feb 25, 2016 [id number] ELIZABETH SMILEY PATIENT AETNA RX [facility]CRIPT [facility] Feb 25, 2016 [id number] [phone] ELIZABETH SMILEY JR PATIENT [employer] POINT OF SERVICE [employer] Mar 20, 2002 [id number] ELIZABETH SMILEY PATIENT [employer]* POINT OF SERVICE Mar 20, 2002 [id number] ELIZABETH SMILEY PATIENT Selected Encounter This section includes the information on record at [place] for the Encounter. Date/Time Encounter Type Encounter Description Reason Provider Source Mar 20, 2023 03:18 PM Outpatient Encounter PROSTHETICS/ORTHOTI CS KARY Lepe,LEV Antunez E Encounter Template Text not used by [place] [...] 30, 2023 08:00 AM AMBULATORY - MEDICINE [facility] May 30, 2023 08:15 AM [facility] Jun 04, 2023 04:00 PM AMBULATORY - MEDICINE [facility] June 24, 2023 03:00 PM [facility] Aug 08, 2023 03:00 PM AMBULATORY - MEDICINE [place] [facility] Aug 13, 2023 03:10 PM AMBULATORY - MEDICINE [place] [facility] Sep 04, 2023 01:30 PM AMBULATORY - MEDICINE [facility] Lab Results: +/- 30 days of the encounter This section includes the Chemistry and Hematology Lab Results on record with [place] for the patient. Radiology Reports and Pathology Reports are provided separately, in subsequent sections. Lab Results This section contains the Chemistry/Hematology Results that were resulted 30 days before or 30 daysafter the date of the Encounter. Date/Time Source Result Type Result - Unit Interpretation Reference Range Comment Feb 21, 2023 07:49 AM [place] BASIC METABOLIC PANEL (fasting) Specime n Type: SERUM No comment entered. Ordering Provider: LEV LIZAMA Report Released Date/Time: Feb 18, 2023 02:37 PM Reporting Lab: [facility] [address] [address] Performing Lab: [address] [address] UREA NITROGEN 47 mg/dL H 7-25 GLUCOSE 155 mg/dL H 65-100 SODIUM 140 mmol/L 135-145 POTASSIUM 4.8 mmol/L 3.5-5.0 CHLORIDE 106 mmol/L 100-110 CO2 26 meq/L 20-30 CREATININE, Serum 2.19 mg/dL H 0.50-1.40 eGFR(CKD-EPI 2020) 33 mL/min L >60 Feb 21, 2023 07:49 AM [place] HEMOGLOBIN A1C PANEL Specimen Type: BLOOD Comment: [...] Feb 18, 2023 02:37 PM Reporting Lab: [address] [address] Performing Lab: [address] [address] HEMOGLOBIN A1C 7.0 H 4.0-5.6 Feb 21, 2023 07:49 AM [place] LIPID PANEL FASTING Specimen Type: SERUM No comment entered. Ordering Provider: LEV LIZAMA Report Released Date/Time: Feb 18, 2023 02:37 PM Reporting Lab: [address] [address] Performing Lab: [address] [address] CHOLESTEROL 181 mg/dL TRIGLYCERIDE 244 mg/dL H 0-150 LDL calculated 105 mg/dL 0-129 CHOL/HDL 6.7 HDL CHOLESTEROL 27 mg/dL L 40-60 Feb 21, 2023 07:49 AM [place] LIVER FUNCTION Specimen Type: SERUM No comment entered. Ordering Provider: LEV LIZAMA Report Released Date/Time: Feb 18, 2023 02:37 PM Reporting Lab: [address] [address] Performing Lab: [address] [address] PROTEIN,TOTAL 6.1 g/dL 6.0-8.3 ALBUMIN 3.8 g/dL 3.5-5.0 ALKALINE PHOSPHATASE 49 U/L 40-150 AST 10 U/L 5-34 ALT 15 U/L BILIRUBIN, TOTAL 0.3 mg/dL 0.2-1.2 Feb 21, 2023 07:49 AM [place] TSH Specimen Type: SERUM No comment entered. Ordering Provider: LEV LIZAMA Report Released Date/Time: Feb 18, 2023 02:37 PM Reporting [facility] [address] [address] Performing [facility]: [facility] [address] [address] TSH 0.69 u[IU]/mL 0.35-5.00 Feb 21, 2023 07:49 AM [place] CBC AND DIFF (AUTO) Specimen Type: BLOOD No comment entered. Ordering Provider: LEV LIZAMA Report Released Date/Time: Feb 18, 2023 02:37 PM Reporting Lab: [facility] [address] [facility] [address] Performing Lab: [facility] [address] [address] WBC 6.00 10*3/uL 4.50-11.00 RBC 4.32 10*6/uL 4.23-5.66 HGB 12.8 g/dL 12.8-17 HCT 38.8 L 39.2-50.4 MCV 89.8 fL 82-99 MCHC 33.0 g/dL 30.8-35.1 PLT 222 10*3/uL 140-360 RDW-CV 12.4 12.0-16.0 [place], Abs 0.56 10*3/uL 0.30-1.10 MCH 29.6 pg 26.2-32.6 Neut % 70.5 43.7-75.8 Lymph % 16.2 14.0-42.3 [place] % 9.3 5.1-13.7 Eos % 3.2 0.4-6.8 [...] 18, 2023 02:31 PM VA-TOBACCO FORMER USER [facility] Tobacco Use History This section includes a history of the smoking, or tobacco-related health factors, that were collected on or before the date of the Encounter. The data comes from the [place] facility where the Encounter took place. Date/Time Smoking Status/Tobacco Use Comment F acility Feb 18, 2023 02:31 PM VA-TOBACCO [facility]IT 15 YRS [facility] Dec 31, 2021 01:00 PM VA-TOBACCO FOR[facility] [place] [facility] Dec 31, 2021 01:00 PM VA-TOBACCO QUIT 15 YRS OR MORE [facility] Advance Directives: All historical and current Section Date Range: From patient's date of to the date document was created. This section includes ALL of a patient's completed or amended [place] Advance and Rescinded Directives. The entries below indicate that a directive exists for the patient, but an actual copy is not included with this document. The data comes from all [place] facilities. Date Advance Directives Provider Source July 02, 2022 ADVANCE DIRECTIVE SANDRA BROOKS [facility] Aug 07, 2021 ADVANCE DIRECTIVE RADHA SAHA [facility] Nov 28, 2020 ADVANCE DIRECTIVE GOLDIE DUTTA [facility]
--- OUTSIDE RECORDS SUMMARY | 2024-02-17 09:32 | XMS_ITS | Encounter Summary ---
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 ([place]) Organization [facility] ([place]) Address [address] [place] [address] Care Team Providers Care Carpenter Apprentice Name Role Phone LEV OCONNELL Primary Care [...] PREFERRED PROVIDER ORGANIZAT ION (PPO) FED EMPLO [facility] Jan 26, 2020 [id number] ELIZABETH SMILEY JR PATIENT [employer] PREFERRED PROVIDER ORGANIZAT ION (PPO) DWAYNE AL EMPLO [facility] Feb 25, 2016 [id number] ELIZABETH SMILEY JR PATIENT AETNA PREFERRED PROVIDER ORGANIZAT ION (PPO) DWAYNE AL EMPL [facility] Feb 25, 2016 [id number] ELIZABETH SMILEY JR PATIENT AETNA PREFERRED PROVIDER ORGANIZAT ION (PPO) DWAYNE AL EMPL [facility] Feb 25, 2016 [id number] ELIZABETH SMILEY PATIENT AETNA PREFERRED PROVIDER ORGANIZAT ION (PPO) DWAYNE AL MIO MIMI [facility]OO[facility] Feb 24, 2016 [id number] ELIZABETH SMILEY PATIENT AETNA PHARMACY MANAGEMENT PRESCRIPT ION DWAYNE AL EMPLO MIMI Jan 26, 2020 [id number] ELIZABETH SMILEY JR PATIENT [employer]ET[employer] PHARMACY MANAGEMENT PRESCRIPT ION DAIANA Feb 25, 2016 [id number] ELIZABETH SMILEY PATIENT [employer]ETNA PHARMACY MANAGEMENT PRESCRIPT ION DWAYNE AL EMPLO MIMI Feb 25, 2016 [id number] ELIZABETH SMILEY PATIENT AETNA RX PRESCRIPT ION DWAYNE AL EMPLO MIMI Feb 25, 2016 [id number] ELIZABETH SMILEY PATIENT AETNA RX PRESCRIPT [facility]ON [facility] Feb 25, 2016 [id number] ELIZABETH SMILEY JR PATIENT [employer]NA POINT OF SERVICE TYCO Mar 20, 2002 [id number] ELIZABETH SMILEY PATIENT CIGNA* POINT OF SERVICE Mar 20, 2002 [id number] ELIZABETH SMILEY PATIENT Selected Encounter This section includes the information on record at [place] for the Encounter. Date/Time Encounter Type Encounter Description Reason Pro vider Source July 01, 2023 03:28 PM Outpatient Encounter PRIMARY CARE/MEDICINE IHE Encounter [...] - MEDICINE [place] [facility] Aug 13, 2023 03:10 PM AM[place]ICINE [place] [facility] Sep 04, 2023 01:30 PM [facility] Sep 29, 2023 02:30 PM AMBULATORY - NONE [place] [facility] Nov 26, 2023 10:00 AM AM[place]ORY [place]ICINE [place] [facility] Nov 28, 2023 07:35 PM AM[place]ORY [place]IC[place] [facility] Dec 29, 2023 01:30 PM AMBULATORY - MEDICINE [facility] Lab Results: +/- 30 days of [...] Range Comment June 18, 2023 07:38 AM [facility] THYROID T4 FREE(FT4) (WROX) Specimen Type: SERUM No comment entered. Ordering Provider: LEV LIZAMA Report Released Date/Time: Jun 16, 2023 11:42 AM Reporting Lab: [facility] [address] [facility] [address] Performing Lab: [facility] [address] [facility] [address] THYROID T4 FREE(FT4) (WROX) 1.50 ng/dL 0.6-1.6 June 18, 2023 07:38 AM [facility] HEMOGLOBIN A1C PANEL Specimen Type: BLOOD [...] Jun 16, 2023 11:42 AM Reporting Lab: [facility] [address] [facility] [address] Performing Lab: [facility] [address] [facility] [address] HEMOGLOBIN A1C 7.4 H 4.0-5.6 June 18, 2023 07:38 AM [facility] TSH Specimen Type: SERUM No comment entered. Ordering Provider: LEV LIZAMA Report Released Date/Time: Jun 16, 2023 11:42 AM Reporting Lab: [facility] [address] [facility] [address] Performing Lab: [facility] [address] [facility] [facility] [address] TSH 0.33 u[IU]/mL L 0.35-5.00 Social History: [...] 18, 2023 02:31 PM VA-TOBACCO FORMER USER [facility] Tobacco Use History This section includes a history of the smoking, or tobacco-related health factors, that were collected on or before the date of the Encounter. The data comes from the [place] facility where the Encounter took place. Date/Time Smoking Status/Tobacco Use Comment F acility Feb 18, 2023 02:31 PM VA-TOBACCO QUIT 15 YRS OR MORE [facility] Dec 31, 2021 01:00 PM VA-TOBACCO FORMER USER [place] [facility] Dec 31, 2021 01:00 PM VA-TOBACCO QUIT 15 YRS OR MORE [facility] Advance Directives: All historical and current Section [...] Aug 07, 2021 ADVANCE DIRECTIVE RADHA SAHA [place] Nov 28, 2020 ADVANCE DIRECTIVE GOLDIE DUTTA [facility] [place] Encounter Notes: All associated encounter notes This section contains the clinical notes associated to the Encounter. 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 Form has been completed with . Veterans current provider: LEV OCONNELL is requesting... [ ] Review of my opioid medication treatment [X} New provider in the same location [ ] New primary care provider at a new location [ ] NHM [ ] POPC [ ] GOPC [ ] WOPC [ ] FOPC Door Person please approve/disapprove and assign new PCP. /bashir MENESES Signed: 07/01/2023 15:33 Receipt Acknowledged By: 07/03/2023 08:32 /bienvenido/ BESSIE WALLACE NP NURSE PRACTITIONER 07/03/2023 ADDENDUM STATUS: COMPLETED Approved. Please reassign to [facility] PACT 1 and establish an appointment within the next 150 days. Thank you /bashir WALLACE NP NURSE PRACTITIONER Signed: 07/03/2023 08:32 Receipt Acknowledged By: 07/04/2023 11:34 /bashir CUEVAS ADVANCE MARKETING TEAM LEAD [facility] July 03, 2023 08:32 AM ADDENDUM: LOCAL TITLE: Addendum STANDARD TITLE: ADDENDUM DATE OF NOTE: JULY 03, 2023@08:32:31 ENTRY DATE: JULY 03, 2023@08:32:32 AUTHOR: BESSIE WALLACE COSIGNER: URGENCY: STATUS: COMPLETED Approved. Please reassign to [facility] PACT 1 and establish an appointment within the next 150 days. Thank you /bashir WALLACE NP NURSE PRACTITIONER Signed: 07/03/2023 08:32 Receipt Acknowledged By: 07/04/2023 11:34 /bashir CUEVAS ADVANCE MARKETING TEAM LEAD ======== --- Original Document --- 07/01/23 ADMINISTRATIVE NOTE: is requesting a new primary care provider. Form has been completed with . Veterans current provider: LEV OCONNELL [place] is requesting... [ ] Review of my opioid medication treatment [X} New provider in the same location [ ] New primary care provider at a new location [ ] NHM [ ] POPC [ ] GOPC [ ] WOPC [ ] FOPC Door Person please approve/disapprove and assign new PCP. 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 PROVIDERS HE JUST WANTED PACT 5 PROVIDER AWARE THAT SHE WILL NEED TO COVER HIS CLONAZEPAM STATED IN CPRS NOTE DR ESQUIVEL HAS RETIRED /bienvenido/ TIN CUEVAS ADVANCE MARKETING TEAM LEAD Signed: 07/04/2023 11:33 Receipt Acknowledged By: * AWAITING SIGNATURE * NGUYEN NEFF * AWAITING SIGNATURE * MAXIMO HOFFMAN DAVID A [place] July 01, 2023 03:28 PM ADMINISTRATIVE NOT E: LOCAL TITLE: ADMINISTRATIVE NOTE STANDARD TITLE: ADMINISTRATIVE NOTE DATE OF NOTE: JULY 01, 2023@15:28 ENTRY DATE: JULY 01, 2023@15:28:32 AUTHOR: ABEBE JOHNSON EXP COSIGNER: URGENCY: STATUS: COMPLETED ADMINISTRATIVE NOTE Has ADDENDA is requesting a new primary care provider. Form has been completed with . Veterans current provider: LEV OCONNELL is requesting... [ ] Review of my opioid medication treatment [X} New provider in the same location [ ] New primary care provider at a new location [ ] NHM [ ] POPC [ ] GOPC [ ] WOPC [ ] FOPC Door Person please approve/disapprove and assign new PCP. /bienvenido/ ABEBE MENESES Signed: 07/01/2023 15:33 Receipt Acknowledged By: 07/03/2023 08:32 /bienvenido/ BESSIE WALLACE NP NURSE PRACTITIONER 07/03/2023 ADDENDUM STATUS: COMPLETED Approved. Please reassign to SPO PACT 1 and establish an appointment within the next 150 days. 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
--- OUTSIDE RECORDS SUMMARY | 2024-02-17 09:32 | XMS_ITS | Encounter Summary ---
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 Organization [place] Address [address] [place] [address] Care Team Providers Care Internal Control Consultant Name Role Phone LEV OCONNELL Primary [...] (PPO) FED EMPLO [facility] Jan 26, 2020 [id number] [phone] ELIZABETH SMILEY JR PATIENT AETNA PREFERRED PROVIDER ORGANIZAT ION (PPO) DWAYNE AL EMPL [facility] Feb 25, 2016 [id number] ELIZABETH SMILEY JR PATIENT AETNA PREFERRED PROVIDER ORGANIZAT ION (PPO) DWAYNE AL EMPL [facility] Feb 25, 2016 [id number] ELIZABETH SMILEY PATIENT AETNA PREFERRED PROVIDER ORGANIZAT ION (PPO) DWAYNE AL EMPLO [facility] Feb 25, 2016 [id number] ELIZABETH SMILEY JR PATIENT AETNA PREFERRED PROVIDER ORGANIZAT ION (PPO) DWAYNE MORALESO MIMI COOLEY Feb 24, 2016 [id number] ELIZABETH SMILEY PATIENT AETNA PHARMACY MANAGEMENT PRESCRIPT ION DWAYNE AL DEEP COO[place] Jan 26, 2020 [id number] ELIZABETH SMILEY JR PATIENT AETNA PHARMACY MANAGEMENT PRESCRIPT ION DAIANA Feb 25, 2016 [id number] [phone] ELIZABETH SMILEY PATIENT AETNA PHARMACY MANAGEMENT PRESCRIPT ION DWAYNE AL MIO MIMI Feb 25, 2016 [id number] ELIZABETH SMILEY PATIENT AETNA RX PRESCRIPT ION DWAYNE MORALESO MIMI COOLEY Feb 25, 2016 [id number] ELIZABETH SMILEY PATIENT AETNA RX PRESCRIPT ION FEP Feb 25, 2016 [id number] ELIZABETH SMILEY JR PATIENT CIGNA POINT OF SERVICE TYCO Mar 20, 2002 [id number] ELIZABETH SMILEY PATIENT CIGNA* POINT OF SERVICE Mar 20, 2002 [id number] ELIZABETH SMILEY PATIENT Selected Encounter This section includes the information on record at [place] for the Encounter. Date/Time Encounter Type Encounter Description Reason Pro vider Source July 11, 2023 07:48 AM Outpatient Encounter PRIMARY CARE/MEDICINE IHE Encounter Template Text not used by [place] Plan of Treatment: Future Appointments (+ 6 months) and Future Tests (+/- 45 days) The Plan of Treatment section includes future care activities for the patient from all [place] treatmentfacilities. This section includes future appointments and future orders which are active, pending or scheduled. Future Appointments This section includes appointments that were scheduled to occur 6 months from the date of the Encounter, up to a maximum of 20 appointments. The data comes from all [place] treatment facilities. Appointment Date/Time Appointment Type Appointme nt Facility Name Aug 08, 2023 03:00 PM AMBULATORY - MEDICINE [place] [facility] Aug 13, 2023 03:10 PM AMBULATORY - MEDICINE [place] [facility] Sep 04, 2023 01:30 PM [facility] Sep 29, 2023 02:30 PM AMBULATORY - NONE [place] [facility] Nov 26, 2023 10:00 AM AMBULATORY - MEDICINE [place] [facility] Nov 28, 2023 07:35 PM AMBULATORY - MEDICINE [place] [facility] Dec 29, 2023 01:30 PM AMBULATORY - MEDICINE [facility] Lab Results: +/- 30 days of the encounter This section includes the Chemistry and Hematology Lab Results on record with [place] for the patient. Radiology Reports and Pathology Reports are provided separately, in subsequent sections. Lab Results This section contains the Chemistry/Hematology Results that were resulted 30 days before or 30 daysafter the date of the Encounter. Date/Time Source Result Type Result - Unit Interpretation Reference Range Comment June 18, 2023 07:38 AM [facility] THYROID T4 FREE(FT4) (WROX) Specimen Type: SERUM No comment entered. Ordering Provider: LEV LIZAMA Report Released Date/Time: Jun 16, 2023 11:42 AM Reporting Lab: [facility] [address] [facility] [address] Performing Lab: [facility] [address] [facility] [address] THYROID T4 FREE(FT4) (WROX) 1.50 ng/dL 0.6-1.6 June 18, 2023 07:38 AM [facility] HEMOGLOBIN A1C PANEL Specimen Type: BLOOD [...] 2023 11:42 AM Reporting Lab: [facility] [address] [facility] [address] Performing Lab: [facility] [address] [facility] [address] HEMOGLOBIN A1C 7.4 H 4.0-5.6 June 18, 2023 07:38 AM [facility] TSH Specimen Type: SERUM No comment entered. Ordering Provider: LEV LIZAMA Report Released Date/Time: Jun 16, 2023 11:42 AM Reporting Lab: [facility] [address] [facility] [address] Performing Lab: [facility] [address] [facility] [address] TSH 0.33 u[IU]/mL L 0.35-5.00 Social History: Smoking Status (Most current) and Tobacco Use (All prior to encounter date) This section includes the most current, and the historical, smoking and tobacco- related health factors from the [place] facility where the Encounter took place. Current Smoking Status This section includes the most current smoking, or tobacco-related health factor, from the [place] facility where the Encounter took place. Date/Time Current Smoking Status Comment Corina ity Feb 18, 2023 02:31 PM VA-TOBACCO QUIT 15 YRS OR MORE [facility] Tobacco Use History This section includes a history of the smoking, or tobacco-related health factors, that were collected on or before the date of the Encounter. The data comes from the [place] facility where the Encounter took place. Date/Time Smoking Status/Tobacco Use Comment F acility Feb 18, 2023 02:31 PM VA-TOBACCO QUIT 15 YRS OR MORE [facility] [place] [facility] Dec 31, 2021 01:00 PM VA-TOBACCO FORMER USER [place] [facility] Dec 31, 2021 01:00 PM VA-TOBACCO QUIT 15 YRS OR MORE [facility] Advance Directives: All historical and current Section Date Range: From patient's date of to the date document was created. This section includes ALL of a patient's completed or amended [place] Advance and Rescinded Directives. The entries below indicate that a directive exists for the patient, but an actual copy is not included with this document. The data comes from all [place] facilities. Date Advance Directives Provider Source July 02, 2022 ADVANCE DIRECTIVE SANDRA BROOKS [place] Aug 07, 2021 ADVANCE DIRECTIVE RADHA SAAH [place] Nov 28, 2020 ADVANCE DIRECTIVE GOLDIE DUTTA [facility] [place] Encounter Notes: All associated encounter notes This section contains the clinical notes associated to the Encounter. Date/Time Encounter Note(s) Provider Source July 11, 2023 07:48 AM ADMINISTRATIVE NOT E: LOCAL TITLE: FAX/MAIL RECEIVED STANDARD TITLE: ADMINISTRATIVE NOTE DATE OF NOTE: JULY 11, 2023@07:48 ENTRY DATE: JULY 11, 2023@07:48:50 AUTHOR: MARIAMA MARTINEZ EXP COSIGNER: URGENCY: STATUS: COMPLETED Document Received On: June Document Type: Other: OPTUM [facility] CCN VISIT CHECKLIST Date of Service: June Facility and or Provider: [facility] Contact Information: PCP of Record: LEV OCONNELL Next visit with PCP: 08/08/2023 15:00 CWM/SO/PHARM/PACT 2 08/12/2023 15:00 CWM/SO/NUTRITION1 09/04/2023 13:30 CWM/SO/PACT 5 01/13/2024 13:00 NHM/OPTOMETRY/NGUYEN/ Primary Care May keep copies of this document for up to 14 days and send the original for scanning. /bienvenido/ MARIAMA MARTINEZ HB AMSA Signed: 07/11/2023 07:49 MARIAMA MARTINEZ [facility]
--- OUTSIDE RECORDS SUMMARY | 2024-02-17 09:32 | XMS_ITS ---
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 Address [address] [place] [address] Care Team Providers Care Boat Finisher Name Role Phone LEV OCONNELL Primary Care [...] [facility] Jan 26, 2020 [id number] ELIZABETH SMILEY JR PATIENT AETNA PREFERRED PROVIDER ORGANIZAT ION (PPO) DWAYNE AL EMPLO [facility] Feb 25, 2016 [id number] [phone] ELIZABETH SMILEY JR PATIENT AETNA PREFERRED PROVIDER ORGANIZAT ION (PPO) DWAYNE AL EMPL [facility] Feb 25, 2016 [id number] ELIZABETH SMILEY JR PATIENT AETNA PREFERRED PROVIDER ORGANIZAT ION (PPO) DWAYNE AL EMPL [facility] Feb 25, 2016 [id number] ELIZABETH SMILEY PATIENT AETNA PREFERRED PROVIDER ORGANIZAT ION (PPO) DWAYNE AL EMPLO MIMI [place] Feb 24, 2016 [id number] ELIZABETH SMILEY PATIENT AETNA PHARMACY MANAGEMENT PRESCRIPT ION DWAYNE AL EMPLO MIMI [place] Jan 26, 2020 [id number] ELIZABETH SMILEY JR PATIENT AETNA PHARMACY MANAGEMENT PRESCRIPT ION DAIANA Feb 25, 2016 [id number] [phone] ELIZABETH SMILEY PATIENT AETNA PHARMACY MANAGEMENT PRESCRIPT ION DWAYNE AL EMPLO MIMI Feb 25, 2016 [id number] ELIZABETH SMILEY PATIENT AETNA RX PRESCRIPT ION DWAYNE AL EMPLO MIMI [place] Feb 25, 2016 [id number] ELIZABETH SMILEY PATIENT AETNA RX [facility]CRIPT [facility] Feb 25, 2016 [id number] ELIZABETH SMILEY JR PATIENT CIGNA POINT OF SERVICE TYCO Mar 20, 2002 [id number] ELIZABETH SMILEY PATIENT CIGNA* POINT OF SERVICE Mar 20, 2002 [id number] ELIZABETH SMILEY PATIENT Selected Encounter This section includes the information [place] at [place] for the Encounter. Date/Time Encounter Type Encounter Description Reason Provider Source May 30, 2023 08:02 AM Outpatient Encounter PROSTHETICS/ORTHOTI RITA CHILEL [place] Encounter Template Text not used by [place] [...] - MEDICINE [place] [facility] June 24, 2023 03:00 PM AMBULATORY - NONE [place] [facility] Aug 08, 2023 03:00 PM AMBULATORY - MEDICINE [place] [facility] Aug 13, 2023 03:10 PM AMBULATORY - MEDICINE [place] [facility] Sep 04, 2023 01:30 PM AMBULATORY - MEDICINE [place] Sep 29, 2023 02:30 PM AMBULATORY - NONE [place] [facility] Nov 26, 2023 10:00 AM AMBULATORY - MEDICINE [place] [facility] Nov 28, 2023 07:35 PM AMBULATORY - MEDICINE [place] [facility] Lab Results: +/- 30 days of [...] Range Comment June 18, 2023 07:38 AM [place] [facility] THYROID T4 FREE(FT4) (WROX) Specimen Type: SERUM No comment entered. Ordering Provider: LEV LIZAMA Report Released Date/Time: Jun 16, 2023 11:42 AM Reporting Lab: [place] [facility] [address] [facility] [address] Performing Lab: [place] [facility] [address] [facility] [address] THYROID T4 FREE(FT4) (WROX) 1.50 ng/dL 0.6-1.6 June 18, 2023 07:38 AM [place] [facility] TSH Specimen Type: SERUM No comment entered. Ordering Provider: LEV LIZAMA Report Released Date/Time: Jun 16, 2023 11:42 AM Reporting Lab: [place] [facility] [address] [facility] [address] Performing Lab: [facility] [address] [facility] [address] TSH 0.33 u[IU]/mL L 0.35-5.00 June 18, 2023 07:38 AM [facility] HEMOGLOBIN A1C PANEL Specimen Type: BLOOD [...] Jun 16, 2023 11:42 AM Reporting Lab: [address] [address] Performing Lab: [address] [address] HEMOGLOBIN A1C 7.4 H 4.0-5.6 Social History: [...] 18, 2023 02:31 PM VA-TOBACCO FORMER USER [facility] Tobacco Use History This section includes a history of the smoking, or tobacco-related health factors, that were collected on or before the date of the Encounter. The data comes from the [place] facility where the Encounter took place. Date/Time Smoking Status/Tobacco Use Comment F acility Feb 18, 2023 02:31 PM VA-TOBACCO QUIT 15 YRS OR MORE [facility] Dec 31, 2021 01:00 PM VA-TOBACCO FORMER USER [facility] Dec 31, 2021 01:00 PM VA-TOBACCO QUIT 15 YRS OR MORE [facility] Advance Directives: All historical and current [...] July 02, 2022 ADVANCE DIRECTIVE SANDRA BROOKS [facility] Aug 07, 2021 ADVANCE DIRECTIVE RADHA SAHA [place] Nov 28, 2020 [facility]
--- OUTSIDE RECORDS SUMMARY | 2024-02-17 09:33 | XMS_ITS | Encounter Summary ---
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 ([place] [facility] Address [address] [place] [address] Care Team Providers Care Topology Professor Name Role Phone LEV OCONNELL Primary [...] PREFERRED PROVIDER ORGANIZAT ION (PPO) FED EMPLO [facility] Jan 26, 2020 [id number] ELIZABETH SMILEY JR PATIENT [employer] PREFERRED PROVIDER ORGANIZAT ION (PPO) DWAYNE AL EMPLO [facility] Feb 25, 2016 [id number] ELIZABETH SMILEY JR PATIENT [employer] PREFERRED PROVIDER ORGANIZAT ION (PPO) DWAYNE AL EMPL [facility] Feb 25, 2016 [id number] ELIZABETH SMILEY JR PATIENT [employer] PREFERRED PROVIDER ORGANIZAT ION (PPO) DWAYNE AL EMPL [facility] Feb 25, 2016 [id number] ELIZABETH SMILEY PATIENT [employer] PREFERRED PROVIDER ORGANIZAT ION (PPO) DWAYNE AL MIO MIMI [facility] Feb 24, 2016 [id number] ELIZABETH SMILEY PATIENT [employer] PHARMACY MANAGEMENT PRESCRIPT ION DWAYNE AL EMPLO MIMI Jan 26, 2020 [id number] ELIZABETH SMILEY JR PATIENT [employer] PHARMACY MANAGEMENT PRESCRIPT ION DAIANA Feb 25, 2016 [id number] ELIZABETH SMILEY PATIENT [employer] PHARMACY MANAGEMENT PRESCRIPT ION DWAYNE AL EMPLO MIMI Feb 25, 2016 [id number] ELIZABETH SMILEY PATIENT [employer] RX PRESCRIPT ION DWAYNE AL EMPLO MIMI Feb 25, 2016 [id number] ELIZABETH SMILEY PATIENT [employer] [facility] Feb 25, 2016 [id number] ELIZABETH SMILEY JR PATIENT [employer] POINT OF SERVICE [employer] Mar 20, 2002 [id number] ELIZABETH SMILEY PATIENT [employer]* POINT OF SERVICE Mar 20, 2002 [id number] ELIZABETH SMILEY PATIENT Selected Encounter This section includes the information on record at [place] for the Encounter. Date/Time Encounter Type Encounter Description Reason Pro vider Source Sep 03, 2023 01:04 PM Outpatient Encounter PRIMARY CARE/MEDICINE IHE Encounter Template Text not used by [place] Plan of Treatment: Future Appointments (+ 6 months) and Future Tests (+/- 45 days) The Plan of Treatment section includes future care activities for the patient from all [place] treatmentfacilities. This section includes future appointments and future orders which are active, pending or scheduled. Future Appointments This section includes appointments that were scheduled to occur 6 months from the date of the Encounter, up to a maximum of 20 appointments. The data comes from all [place] treatment facilities. Appointment Date/Time Appointment Type Appointme nt Facility Name Sep 04, 2023 01:30 PM [facility] Sep 29, 2023 02:30 PM AM[place]UL[place]ORY - NONE [place] [facility] [place] [facility] Nov 26, 2023 10:00 AM [place] [facility] [place] [facility] Nov 28, 2023 07:35 PM [place] [facility] [place] [facility] Dec 29, 2023 01:30 PM [place] [facility] [place] [facility] Jan 13, 2024 01:00 PM [place] [facility] Lab Results: +/- 30 days of the encounter This section includes the Chemistry and Hematology Lab Results on record with [place] for the patient. Radiology Reports and Pathology Reports are provided separately, in subsequent sections. Lab Results This section contains the Chemistry/Hematology Results that were resulted 30 days before or 30 daysafter the date of the Encounter. Date/Time Source Result Type Result - Unit Interpretation Reference Range Comment Aug 29, 2023 09:29 AM [place] PROTEIN/CREATININE RATIO PANEL, URINE S pecimen Type: URINE No comment entered. Ordering Provider: LEV LIZAMA Report Released Date/Time: Aug 29, 2023 09:24 AM Reporting [facility] [address] [address] Performing Lab: [place] [facility] [address] [address] CREATININE URINE 64.72 mg/dL UR PROTEIN/CREATI NINE RATIO 1.6 <0.2 PROTEIN, URINE 102.7 mg/dL H 0.0-20.0 Aug 29, 2023 09:29 AM [place] ELECTROLYTE PANEL Specimen Type: SERUM No comment entered. Ordering Provider: LEV LIZAMA Report Released Date/Time: Aug 29, 2023 09:24 AM Reporting Lab: [place] [facility] [place] [address] [address] Performing Lab: [facility] [address] SODIUM 141 mmol/L 135-145 POTASSIUM 4.9 mmol/L 3.5-5.0 CHLORIDE 109 mmol/L 100-110 CO2 23 meq/L 20-30 Aug 29, 2023 09:00 AM [place] THYROID T4 FREE(FT4) (WROX) Specimen Ty pe: SERUM No comment entered. Ordering Provider: LEV LIZAMA Report Released Date/Time: Mar 06, 2023 09:49 AM Reporting Lab: [facility] [address] [facility] [address] Performing Lab: [facility] [address] [facility] [address] THYROID T4 FREE(FT4) (WROX) 1.31 ng/dL 0.6-1.6 Aug 29, 2023 09:00 AM [place] PSA Specimen Type: SERUM No comment entered. Ordering Provider: LEV LIZAMA Report Released Date/Time: Mar 06, 2023 09:35 AM Reporting Lab: [facility] [address] Performing Lab: [facility] [address] [address] PSA < 0.10 ng/mL 0.00-4.00 Aug 29, 2023 09:00 AM [place] VITAMIN D (25-OH) Specimen Type: SERUM No comment entered. Ordering Provider: LEV LIZAMA Report Released Date/Time: Mar 06, 2023 09:49 AM Reporting [facility]: [facility] [address] Performing Lab: [facility] [address] [address] VITAMIN D (25-OH) 32 ng/mL 20-50 Aug 29, 2023 09:00 AM [place] VITAMIN B12 Specimen Type: SERUM No comment entered. Ordering Provider: LEV LIZAMA Report Released Date/Time: Mar 06, 2023 09:49 AM Reporting Lab: [facility] [address] Performing [facility]: [facility] [address] VITAMIN B12 407 pg/mL 200-900 Aug 29, 2023 09:00 AM [place] HEMOGLOBIN A1C PANEL Specimen Type: BLOOD Comment: [...] Mar 06, 2023 09:49 AM Reporting [facility] [address] [address] Performing Lab: [address] [address] HEMOGLOBIN A1C 7.1 H 4.0-5.6 Aug 29, 2023 09:00 AM [place] MICROALBUMIN CREATININE RATIO PANEL Spe cimen Type: URINE No comment entered. Ordering Provider: LEV LIZAMA Report Released Date/Time: Mar 06, 2023 09:49 AM Reporting [facility] [address] [address] Performing [facility]: [facility] [address] [address] MICROALBUMIN/C REATININE RATIO 1278.8 mg/g H 0-29.9 MICROALBUMIN,Q UANTITATIVE 82.2 mg/dL RR UNAVAIL CREATININE URINE 64.28 mg/dL Aug 29, 2023 09:00 AM [place] TSH Specimen Type: SERUM No comment entered. Ordering Provider: LEV LIZAMA Report Released Date/Time: Mar 06, 2023 09:49 AM Reporting [facility] [address] [address] [facility]forming [facility] [address] [address] TSH 1.25 u[IU]/mL 0.35-5.00 Aug 29, 2023 09:00 AM [place] IRON & TIBC PANEL Specimen Type: SERUM No comment entered. Ordering Provider: LEV LIZAMA Report Released Date/Time: Mar 06, 2023 09:49 AM Reporting Lab: [address] [address] Performing Lab: [address] [address] TIBC 298 ug/dL 204-475 IRON 76 ug/dL 40-160 Transferrin Saturation 25.5 20.0-50.0 Aug 29, 2023 09:00 AM [place] BASIC METABOLIC PANEL (fasting) Specime n Type: SERUM No comment entered. Ordering Provider: LEV LIZAMA Report Released Date/Time: Mar 06, 2023 09:49 AM Reporting Lab: [address] [address] Performing Lab: [address] [address] UREA NITROGEN 54 mg/dL H 7-25 GLUCOSE 178 mg/dL H 65-100 SODIUM 141 mmol/L 135-145 POTASSIUM 4.9 mmol/L 3.5-5.0 CHLORIDE 108 mmol/L 100-110 CO2 25 meq/L 20-30 CREATININE, Serum 2.48 mg/dL H 0.50-1.40 eGFR(CKD-EPI 2020) 28 mL/min L >60 Aug 29, 2023 09:00 AM [place] LIPID PANEL FASTING Specimen Type: SERUM No comment entered. Ordering Provider: LEV LIZAMA Report Released Date/Time: Mar 06, 2023 09:49 AM Reporting Lab: [address] [address] Performing Lab: [address] [address] CHOLESTEROL 243 mg/dL H TRIGLYCERIDE 139 mg/dL 0-150 LDL calculated 174 mg/dL H 0-129 CHOL/HDL 5.9 HDL CHOLESTEROL 41 mg/dL 40-60 Aug 29, 2023 09:00 AM [place] LIVER FUNCTION Specimen Type: SERUM No comment entered. Ordering Provider: LEV LIZAMA Report Released Date/Time: Mar 06, 2023 09:49 AM Reporting Lab: [address] [address] Performing Lab: [address] [address] PROTEIN,TOTAL 6.3 g/dL 6.0-8.3 ALBUMIN 3.7 g/dL 3.5-5.0 ALKALINE PHOSPHATASE 49 U/L 40-150 AST 13 U/L 5-34 ALT 32 U/L BILIRUBIN, TOTAL 0.3 mg/dL 0.2-1.2 Aug 29, 2023 09:00 AM [place] CBC AND DIFF (AUTO) Specimen Type: BLOOD No comment entered. Ordering Provider: LEV LIZAMA Report Released Date/Time: Mar 06, 2023 09:49 AM Reporting Lab: [address] [address] Performing Lab: [address] [address] WBC 9.47 10*3/uL 4.50-11.00 RBC 5.00 10*6/uL [...] and tobacco- related health factors from the [place] facility where the Encounter took place. Current Smoking Status This section includes the most current smoking, or tobacco-related health factor, from the [place] facility where the Encounter took place. Date/Time Current Smoking Status Comment Facil ity Feb 18, 2023 02:31 PM VA-TOBACCO FORMER USER [facility] Tobacco Use History This section includes a history of the smoking, or tobacco-related health factors, that were collected on or before the date of the Encounter. The data comes from the [place] facility where the Encounter took place. Date/Time Smoking Status/Tobacco Use Comment F acility Feb 18, 2023 02:31 PM VA-TOBACCO QUIT 15 YRS OR MORE [facility] Dec 31, 2021 01:00 PM [place]BACCO FORMER USER [place] [facility] [place] [facility] Dec 31, 2021 01:00 PM [place] 15 YRS OR MORE [facility] Advance Directives: All historical and current Section Date Range: From patient's date of to the date document was created. This section includes ALL of a patient's completed or amended [place] Advance and Rescinded Directives. The entries below indicate that a directive exists for the patient, but an actual copy is not included with this document. The data comes from all [place] facilities. Date Advance Directives Provider Source July 02, 2022 ADVANCE DIRECTIVE SANDRA BROOKS [facility] Aug 07, 2021 ADVANCE DIRECTIVE RADHA SAHA [facility] Nov 28, 2020 ADVANCE DIRECTIVE GOLDIE DUTTA [facility] Encounter Notes: All associated encounter notes This section contains the clinical notes associated to the Encounter. Date/Time Encounter Note(s) Provider Source Sep 03, 2023 01:04 PM PRIMARY CARE NOTE: LOCAL TITLE: WALK-IN NOTE PRIMARY CARE (T) STANDARD TITLE: PRIMARY CARE NOTE DATE OF NOTE: SEP 03, 2023@13:04 ENTRY DATE: SEP 03, 2023@13:04:29 AUTHOR: DIONNE TADEO COSIGNER: URGENCY: STATUS: COMPLETED <====Click to Start Advanced Medical Support [place] presents to the Primary Care clinic with the following request: [ ]Medication Renewal/Refill [ ]Consultation with Team RN [ ]Symptoms [ X ]Other The [place] states they are: [ ]Waiting [ X ]Not Waiting No Walk in visit scheduled with PACT Nurse [ X ] At this encounter the [place]'s demographics were verified. [ X ] At this encounter the [place]'s Insurance information was verified. [ X ] At this encounter the below scheduled visits for the [place] were discussed and appointment reminder card was offered. 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
--- OUTSIDE RECORDS SUMMARY | 2024-02-17 09:33 | XMS_ITS | Encounter Summary ---
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 [place] [facility] [place] Address [address] [place] [address] Care Team Providers Care Party Director Name Role Phone LEV OCONNELL Primary Care [...] PREFERRED PROVIDER ORGANIZAT ION (PPO) FED EMPLO [facility] Jan 26, 2020 [id number] [phone] ELIZABETH SMILEY JR PATIENT [employer] PREFERRED PROVIDER ORGANIZAT ION (PPO) DWAYNE AL EMPLO [facility] Feb 25, 2016 [id number] [phone] ELIZABETH SMILEY JR PATIENT [employer] PREFERRED PROVIDER ORGANIZAT ION (PPO) DWAYNE AL EMPL [facility] Feb 25, 2016 [id number] [phone] ELIZABETH SMILEY JR PATIENT [employer] PREFERRED PROVIDER ORGANIZAT ION (PPO) DWAYNE AL EMPL [facility] Feb 25, 2016 [id number] [phone] ELIZABETH SMILEY PATIENT [employer] PREFERRED PROVIDER ORGANIZAT ION (PPO) DWAYNE AL EMPLO [facility] Feb 24, 2016 [id number] ELIZABETH SMILEY PATIENT [employer] PHARMACY MANAGEMENT PRESCRIPT ION DWAYNE AL EMPLO [facility] Jan 26, 2020 [id number] ELIZABETH SMILEY JR PATIENT [employer] PHARMACY MANAGEMENT PRESCRIPT ION KRAFT Feb 25, 2016 [id number] ELIZABETH SMILEY PATIENT [employer] PHARMACY MANAGEMENT PRESCRIPT ION DWAYNE AL EMPLO MIMI Feb 25, 2016 [id number] ELIZABETH SMILEY PATIENT [employer] RX PRESCRIPT ION DWAYNE AL EMPLO [facility] Feb 25, 2016 [id number] ELIZABETH SMILEY PATIENT [employer] RX PRESCRIPT ION [facility]HBP Feb 25, 2016 [id number] ELIZABETH SMILEY JR PATIENT [employer] POINT OF SERVICE [employer] Mar 20, 2002 [id number] ELIZABETH SMILEY PATIENT [employer]* POINT OF SERVICE Mar 20, 2002 [id number] ELIZABETH SMILEY PATIENT Selected Encounter This section includes the information on record at [place] for the Encounter. Date/Time Encounter Type Encounter Description Reason Provider Source Sep 04, 2023 01:30 PM OFFICE O/P EST MOD 30 MIN PRIMARY CARE/MEDICINE ICD-10-CM D48.5 Neoplasm of uncertain behavior of skin LEV LIZAMA Kendall Encounter Template Text not used by [place] Assessments - Encounter Diagnoses This section includes the primary and secondary diagnoses documented for the Encounter. Date/Time Primary/Secondary Diagnosis Diagnosis Name Provider Source Oct 12, 2023 10:03 AM PRIMARY Neoplasm of uncertain behavior of skin LEV LIZAMA [facility] Oct 12, 2023 10:03 AM SECONDARY Allergic rhinitis, unspecified LEV LIZAMA [facility] Oct 12, 2023 10:03 AM SECONDARY Chronic kidney disease, stage 4 (severe) [facility] Oct 12, 2023 10:03 AM SECONDARY Chronic neph syndrome w focal and seg glomerular lesions ILENE[facility]OSKO [facility] Oct 12, 2023 10:03 AM SECONDARY Cramp and spasm YOGIAZDIN-BOSKO MAULIK,[facility] Oct 12, 2023 10:03 AM SECONDARY Essential (primary) hypertension OMIDDIN-[facility]KO [facility]UL[facility] Oct 12, 2023 10:03 AM SECONDARY Hypothyroidism, unspecified [facility] Oct 12, 2023 10:03 AM SECONDARY Intervertebral disc disorders w radiculopathy, lumbar region ILENE-BOSKO MAULIK[facility] Oct 12, 2023 10:03 AM SECONDARY Mixed hyperlipidemia [facility]OS[facility]ULIK,[facility] Oct 12, 2023 10:03 AM SECONDARY Nephrotic syndrome w focal and segmental glomerular lesions OMIDDIN-BOSKO MAULIK,[facility] Oct 12, 2023 10:03 AM SECONDARY Other insomnia [facility]ENTERCLARIBEL-BOSKO [facility]ULIK[facility] Oct 12, 2023 10:03 AM SECONDARY Other obesity [facility]CLARIBEL[facility]OS[facility] Oct 12, 2023 10:03 AM SECONDARY Sleep apnea, unspecified YOGIAZDIN-BOSKO MAULIK,[facility] Oct 12, 2023 10:03 AM SECONDARY Type 2 diabetes mellitus without complications YOGIAZDIN-BOSKO MAULIK[facility] Plan of Treatment: Future Appointments (+ 6 months) and Future Tests (+/- 45 days) The Plan of Treatment section includes future care activities for the patient [facility] [place] [facility] This section includes future appointments and future orders which are active, pending or scheduled. Future Appointments This section includes appointments that were scheduled to occur 6 months from the date of the Encounter, up to a maximum of 20 appointments. The data comes from all [place] treatment facilities. Appointment Date/Time Appointment Type Appointme nt Facility Name Sep 29, 2023 02:30 PM AMBULATORY - NONE [place] [facility] [place] [facility] Nov 26, 2023 10:00 AM AMBULATORY [place]IC[place] [facility] [place] [facility] Nov 28, 2023 07:35 PM AM[place]ORY - [place] [facility] [place] [facility] Dec 29, 2023 01:30 PM AM[place]ORY [place] [facility] [place] [facility] Jan 13, 2024 01:00 PM [facility] [place] [facility] Lab Results: +/- 30 days of the encounter This section includes the Chemistry and Hematology Lab Results on record with [place] for the patient. Radiology Reports and Pathology Reports are provided separately, in subsequent sections. Lab Results This section contains the Chemistry/Hematology Results that were resulted 30 days before or 30 daysafter the date of the Encounter. Date/Time Source Result Type Result - Unit Interpretation Reference Range Comment Aug 29, 2023 09:29 AM [facility] PROTEIN/CREATININE RATIO PANEL, URINE S pecimen Type: URINE No comment entered. Ordering Provider: LEV LIZAMA Report Released Date/Time: Aug 29, 2023 09:24 AM Reporting Lab: [facility] [address] [address] Performing Lab: [facility] [address] CREATININE URINE 64.72 mg/dL UR PROTEIN/CREATI NINE RATIO 1.6 <0.2 PROTEIN, URINE 102.7 mg/dL H 0.0-20.0 Aug 29, 2023 09:29 AM [facility] ELECTROLYTE PANEL Specimen Type: SERUM No comment entered. Ordering Provider: LEV LIZAMA Report Released Date/Time: Aug 29, 2023 09:24 AM Reporting Lab: [facility] [address] [address] Performing Lab: [facility] [address] SODIUM 141 mmol/L 135-145 POTASSIUM 4.9 mmol/L 3.5-5.0 CHLORIDE 109 mmol/L 100-110 CO2 23 meq/L -30 Aug 29, 2023 09:00 AM [facility] THYROID T4 FREE(FT4) (WROX) Specimen Ty pe: SERUM No comment entered. Ordering Provider: LEV LIZAMA Report Released Date/Time: Mar 06, 2023 09:49 AM Reporting Lab: [facility] [address] [address] Performing Lab: [facility] [place] [facility] [address] [facility] [address] THYROID T4 FREE(FT4) (WROX) 1.31 ng/dL 0.6-1.6 Aug 29, 2023 09:00 AM [facility] PSA Specimen Type: SERUM No comment entered. Ordering Provider: LEV LIZAMA Report Released Date/Time: Mar 06, 2023 09:35 AM Reporting Lab: [facility]PRISETRN [facility] [address] [address] Performing Lab: [facility] [address] [address] PSA < 0.10 ng/mL 0.00-4.00 Aug 29, 2023 09:00 AM [facility] VITAMIN D (25-OH) Specimen Type: SERUM No comment entered. Ordering Provider: LEV LIZAMA Report Released Date/Time: Mar 06, 2023 09:49 AM Reporting Lab: [facility] ENTERPRISETRN [facility] [address] [address] Performing Lab: [facility] ENTERPRISETRN [facility] [address] [address] VITAMIN D (25-OH) 32 ng/mL 20-50 Aug 29, 2023 09:00 AM [facility] VITAMIN B12 Specimen Type: SERUM No comment entered. Ordering Provider: LEV LIZAMA Report Released Date/Time: Mar 06, 2023 09:49 AM Reporting Lab: [facility] [address] [address] Performing Lab: [facility] [address] VITAMIN B12 407 pg/mL 200-900 Aug 29, 2023 09:00 AM [facility] HEMOGLOBIN A1C PANEL Specimen Type: BLOOD Comment: [...] Mar 06, 2023 09:49 AM Reporting Lab: [facility] [address] [facility] [address] Performing Lab: [address] [address] HEMOGLOBIN A1C 7.1 H 4.0-5.6 Aug 29, 2023 09:00 AM [facility] MICROALBUMIN CREATININE RATIO PANEL Spe cimen Type: URINE No comment entered. Ordering Provider: LEV LIZAMA Report Released Date/Time: Mar 06, 2023 09:49 AM Reporting Lab: [facility] [address] [address] Performing Lab: [facility] [address] [address] MICROALBUMIN/C REATININE RATIO 1278.8 mg/g H 0-29.9 MICROALBUMIN,Q UANTITATIVE 82.2 mg/dL RR UNAVAIL CREATININE URINE 64.28 mg/dL Aug 29, 2023 09:00 AM [facility] TSH Specimen Type: SERUM No comment entered. Ordering Provider: LEV LIZAMA Report Released Date/Time: Mar 06, 2023 09:49 AM Reporting Lab: [facility] [address] Performing Lab: [facility] [address] [address] TSH 1.25 u[IU]/mL 0.35-5.00 Aug 29, 2023 09:00 AM [facility] LIVER FUNCTION Specimen Type: SERUM No comment entered. Ordering Provider: LEV LIZAMA Report Released Date/Time: Mar 06, 2023 09:49 AM Reporting Lab: [address] [address] Performing Lab: [address] [address] PROTEIN,TOTAL 6.3 g/dL 6.0-8.3 ALBUMIN 3.7 g/dL 3.5-5.0 ALKALINE PHOSPHATASE 49 U/L 40-150 AST 13 U/L 5-34 ALT 32 U/L BILIRUBIN, TOTAL 0.3 mg/dL 0.2-1.2 Aug 29, 2023 09:00 AM [facility] BASIC METABOLIC PANEL (fasting) Specime n Type: SERUM No comment entered. Ordering Provider: LEV LIZAMA Report Released Date/Time: Mar 06, 2023 09:49 AM Reporting Lab: [address] [address] Performing Lab: [address] [address] UREA NITROGEN 54 mg/dL H 7-25 GLUCOSE 178 mg/dL H 65-100 SODIUM 141 mmol/L 135-145 POTASSIUM 4.9 mmol/L 3.5-5.0 CHLORIDE 108 mmol/L 100-110 CO2 25 meq/L 20-30 CREATININE, Serum 2.48 mg/dL H 0.50-1.40 eGFR(CKD-EPI 2020) 28 mL/min L >60 Aug 29, 2023 09:00 AM [facility] LIPID PANEL FASTING Specimen Type: SERUM No comment entered. Ordering Provider: LEV LIZAMA Report Released Date/Time: Mar 06, 2023 09:49 AM Reporting Lab: [address] [address] Performing Lab: [address] [address] CHOLESTEROL 243 mg/dL H TRIGLYCERIDE 139 mg/dL 0-150 LDL calculated 174 mg/dL H 0-129 CHOL/HDL 5.9 HDL CHOLESTEROL 41 mg/dL 40-60 Aug 29, 2023 09:00 AM [facility] IRON & TIBC PANEL Specimen Type: SERUM No comment entered. Ordering Provider: LEV LIZAMA Report Released Date/Time: Mar 06, 2023 09:49 AM Reporting Lab: [facility] [address] [address] Performing Lab: [address] [address] TIBC 298 ug/dL 204-475 IRON 76 ug/dL 40-160 Transferrin Saturation 25.5 20.0-50.0 Aug 29, 2023 09:00 AM [facility] CBC AND DIFF (AUTO) Specimen Type: BLOOD No comment entered. Ordering Provider: LEV LIZAMA Report Released Date/Time: Mar 06, 2023 09:49 AM Reporting Lab: [address] [address] Performing Lab: [address] [address] WBC 9.47 10*3/uL 4.50-11.00 RBC 5.00 10*6/uL [...] 0.0 0.0-0.0 NRBC, ABS 0.00 10*3/uL 0.00-0.00 Vital Signs: All taken on the encounter date This section contains inpatient and outpatient Vital Signs collected on the date of the Encounter. Date/Time Temperature Pulse Blood Pressure Respiratory Rate SP02 Pain Height Weight Body Mass Index Source Sep 04, 2023 01:35 PM 96.4 64 120/74 98 231.2 36 [place] Social History: Smoking Status (Most current) and Tobacco Use (All prior to encounter date) This section includes the most current, and the historical, smoking and tobacco- related health factors from the [place] facility where the Encounter took place. Current Smoking Status This section includes the most current smoking, or tobacco-related health factor, from the [place] facility where the Encounter took place. Date/Time Current Smoking Status Comment Facil ity Jan 08, 2021 01:30 PM VA-TOBACCO FORMER USER [facility] Tobacco Use History This section includes a history of the smoking, or tobacco-related health factors, that were collected on or before the date of the Encounter. The data comes from the [place] facility where the Encounter took place. Date/Time Smoking Status/Tobacco Use Comment F acility Jan 08, 2021 01:30 PM VA-TOBACCO QUIT 15 YRS OR MORE [facility] Jun 10, 2019 09:30 AM VA-TOBACCO FORMER USER [facility] Jun 10, 2019 09:30 AM VA-TOBACCO QUIT 15 YRS OR MORE [facility] Dec 04, 2017 11:51 AM VA-TOBACCO FORMER USER [facility] Dec 04, 2017 11:51 AM VA-TOBACCO QUIT 15 YRS OR MORE [facility] May 19, 2017 02:36 PM QUIT TOBACCO USE > 7 YEARS AGO [facility] May 15, 2016 10:07 AM QUIT TOBACCO USE > 7 YEARS AGO reports quitting 27 years ago [facility] Mar 21, 2015 02:13 PM QUIT TOBACCO USE > 7 YEARS AGO quit 04/11/1989, smoker 3 ppd x 10 yrs [facility] Oct 20, 2003 03:02 PM HISTORY OF SMOKING stopped tobacco 14 years ago [facility] Sep 14, 2002 09:25 AM HISTORY OF SMOKING quit 13 years ago [facility] Nov 25, 2001 10:54 AM QUIT TOBACCO USE > 7 YEARS AGO quit [facility] Sep 15, 2001 10:23 AM HISTORY OF SMOKING quit 12 years ago 04/11/1989 [facility] Advance Directives: All historical and current Section Date Range: From patient's date of to the date document was created. This section includes ALL of a patient's completed or amended [place] Advance and Rescinded Directives. The entries below indicate that a directive exists for the patient, but an actual copy is not included with this document. The data comes from all [place] facilities. Date Advance Directives Provider Source July 02, 2022 ADVANCE DIRECTIVE CECILIAKEODIONE [place] Aug 07, 2021 ADVANCE DIRECTIVE SAHARADHA [facility] [place] Nov 28, 2020 ADVANCE DIRECTIVE GOLDIE DUTTA MITCH [facility] [place] Encounter Notes: All associated encounter notes This section contains the clinical notes associated to the Encounter. Date/Time Encounter Note(s) Provider Source 2024 12:32 PM MEDICATION MGT NOT E: LOCAL TITLE: OUTPATIENT MEDICATION REQUEST STANDARD TITLE: MEDICATION MGT NOTE DATE OF NOTE: 2024@12:32 ENTRY DATE: 2024@12:32:26 AUTHOR: STEVEN DIAL COSIGNER: URGENCY: STATUS: COMPLETED Medication Request Date of Request: Dec Is this a New Medication? No Please renew by mail: SEMAGLUTIDE (OZEMPIC) PA-F INJ,SOLN 1MG/0.75ML INJECT 1MG SUBCUTANEOUSLY ONCE A WEEK Quantity: 1 Refills: 5 Indication: FOR TYPE 2 DIABETES MELLITUS Last Filled: 12/16/23 Refills Remainin PCP -- Per Office note encounter Date 01/01/2024 receieved from [facility] - Dr Cowan: Type 2 diabetes with nephropathy - Primary Control reasonable, not optimal, HbA1c remains> target despite increase in ozempic at last visit, but has been in a lot of pain/less active w/ back pain & getting intermittent steroid injections. Will increase ozempic to 2 mg weekly. Given renal function would not anticipate a significant glycemic benefit from the empagliflozin. Copied from Office Note. Copy in PACT Rghtfax folder for PCP review. Copy sent to [facility] to scan into pt chart. /bienvenido/ STEVEN DIAL RN REGISTERED NURSE Signed: 2024 12:38 Receipt Acknowledged By: * AWAITING SIGNATURE * LEV OCONNELL STEVEN [place] Sep 04, 2023 01:30 PM PHYSICIAN NOTE: LOCAL TITLE: MD NOTE STANDARD TITLE: PHYSICIAN NOTE DATE OF NOTE: SEP 04, 2023@13:30 ENTRY DATE: SEP 04, 2023@06:52:28 AUTHOR: Adriane OCONNELL EXP COSIGNER: URGENCY: STATUS: COMPLETED Pt is 63 y/o M with PMH of obesity, HTN, HLD, NIDDM (on GLP1RA/jardiance), FSGS (Dx in 1989, f/b renal, Bx proven, currently on ARBs, baseline Creat 2), obesity (BMI 36), LYN on CPAP, hypothyroidism, Prostate CA age 41 s/p radical prostatectomy, Lubar radiculopathy s/p discectomy after fall in 2014 and subsequent L5-S1 fusion in 2017 Last visit 02/2023 [facility]CP [facility] (Can have [facility] PCP under [employer] insurance) (Dr. 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) for his Focal Segmental Glomerulosclerosis - -Q3m In study, testing new drug(pt on sparsentan) -- Endo Dr Lena Keller MS-referred by renal- inc in [place] A1c and persistant proteinuria q6m -- podiatry Dr Lugo at [facility] q6m [phone] -- eye [place] -- GI Dr Newberry [facility] gastroenterology - -- dermatology [place] -- pain service at [facility] - for LBP - next 07/2022 --> s/p LS epidural 06/2022 -- urology [facility] 04/2022 --RTC prn as long as PSA UD reports doing well CC: would like to check few spots on his back that noticed and refill meds #FSGS (Dx in 1989, 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 5mm lump where prostate used to be per urology given PSA 0.1, 20 years after radical prostatectomy there is no evidence for recurrent cancer at that time #DM2 last a1c 7.1 Follows with non-VA endocrinology Drinking lemonade with stevfitz metkailaime dc/d 2022 --> low GFR Currently taking:semaglutide 1mg and jardiance 10mg #LBP f/w pain service better after epidural injection on baclofen 10mg TID (SOB resolved with titrating dosage down), clonazepam 0.5mg TID injections q3-5 months Follows with [facility] pain clinic current regimen works well PAST MEDICAL HISTORY: -- Obesity -- HTN [...] C Proteinuria -- Nephrotic syndrome Dr. Presley Chamber Worker [facility] admission 07/14/16 dehydration, DANIEL Dr. Presley office note 11/18/16 in [facility] 11/19/16.On Both ACEI and ARB per Nephro as of 2018 -- Lumbar radiculopathy s/p surgery -- leg cramps -- insomnia PAST SURGICAL HISTORY: -- nasal surgery - septoplasty -- s/p prostatectomy 2002 ([place]) -- History of excision of lamina of lumbar vertebra for spinal L5-S1 decompression and right foramenectomy 10/08/16 Dr. Bboby Van -- 04/2017 L5-S1 partial fusion - Right ALLERGIES:SPIRONOLACTONE, LOVASTATIN, KETOROLAC TROMETHAMINE NONSTEROIDAL ANTI-INFLAMMATORY, hazelnut (migraines) 2020---- stopped nortryptiline for - dry mouth, balance issues stoped trazadone - sob MEDICATIONS:reconcilled today --IRBESARTAN 300MG HIGH BLOOD PRESSURE --AMLODIPINE 5MG --ATORVASTATIN 40MG --FISH OIL 1000MG (500MG DHA/EPA)BID --Non-VA ASPIRIN 81MG -Non-VA OTHER CAP/TAB FSGS STUDY MED SPARSENTAN 400mg --EMPAGLIFLOZIN 10MG --SEMAGLUTIDE 1mg --FLUTICASONE PROP 50MCG 120D NASAL prn --LEVOTHYROXINE NA (SYNTHROID) 200MCG M-F 100MCG Sat, Sn --Non-VA MAGNESIUM OXIDE 500MG BEDTIME --BACLOFEN 10MG TAB TID --CLONAZEPAM 0.5MG TAB TID A DAY MUSCLE CRAMPS --Non-VA ACETAMINOPHEN 325MG --CHOLECALCIF 25MCG (D3-1,000UNIT) --Non-VA CYANOCOBALAMIN 500MCG weekly --ARTIFICIAL SALIVA TAKE 2 SPRAYS BY MOUTH EVERY 6 HOURS FAMILY HISTORY: --DM:no --Cancer:no --LA:no --CVA:no --Mental Health/addiction:Father: 53 suicide, alcoholic --Other:Mother: 57 emphysema LYN -3 sibs brother hypothyroid/hyperthyroid Ankylosing spondylitis 2 cousins recently diagnosed 2021 SOCIAL HISTORY: --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[employer], 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 -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) --Cohabitation: --Children: 3 step children, 1 biological --Diet: low carbs, low salt /up to 70 oz water --Exercise: daily dynamic stretching, mat exercise, limited walking - plan to resstart gym cardio --Caffeine: 2-4 cups/daily - decaf --EtOH:none --Tob:quit 03/1989, h/o 15 PPDY (10Y 1-3 PPD) --MJ: denies --Illicits:denies --Sexual activity: monogamous, --[facility]: [facility]21 [facility] --Dental:UTD --Hospitalizations: #--[facility] pain ED 07/2022 US r/o DVT thrombophlebitis of varicosity in region of pt's complaint ROS: Constitutional: no fever/no chills, no ns Respiratory: no cough/wheezing/SOB Cardiovascular: no CP /palpitations/le edema Gastrointestinal: no abdominal pain/bloody/black stools, d/c/n/v : no LUTS, hematuria MSK: chronic LBP improved after epidural injection Skin: no pruritus/rash PHYSICAL EXAM: Vital Signs: Blood Pressure: 120/74 (09/04/2023 13:35) 132/75 (03/06/2023 09:03) 115/67 (08/12/2022 08:35) 135/73 (12/31/2021 13:14) 137/79 (01/08/2021 13:32) Pulse: 64 (09/04/2023 13:35) Respiration: 18 Temperature: 96.4 F [35.8 C] (09/04/2023 13:35) Patient Weight: BMI: 37 231.2 lb [104.87 kg] (09/04/2023 13:35) 237 lb [107.50 kg] (03/06/2023 09:03) 233.8 lb [106.05 kg] (08/12/2022 08:35) 236.8 lb [107.41 kg] (12/31/2021 13:14) 238 lb [108.2 kg] (01/08/2021 13:32) 230.1 lb [104.6 kg] (04/06/2019 10:16) GA: NAD, AOx3 NECK: supple, no JVD, no LAD, no thyromegaly or masses CVS: RRR Lungs: CTA b/l abd: BS+, NT, ND LE: no edema skin: mid back hyperkeratotic,~ 0.5cm papula right scapula: 0.3 cm ?skin tag LABORATORY:08/2023 WBC: 9.47 HGB: 14.6 HCT: 44.2 MCV: 88.4 PLT: 250 SODIUM: 141 POTASSIUM: 4.9 CHLORIDE: 109 CO2: 23 CREATININE URINE: 64.72 PROTEIN/CREATININE RATIO URINE: 1.6 PROTEIN TOTAL URINE: 102.7 H MICROALB/CR RATIO: 1278.8 H MICROALBUMIN URINE: 82.2 CREATININE URINE: 64.28 HGB A1C (WR): 7.1 H GLUCOSE: 178 H TSH (Access): 1.25 FREE T-4 (WR): 1.31 UREA NITROGEN: 54 H CREATININE-EGFR: 2.48 H eGFR CKD-EPI 2020: 28 L PROTEIN,TOTAL: 6.3 ALBUMIN: 3.7 ALKALINE PHOSPHATASE: 49 BILIRUBIN,TOT.: 0.3 SGOT: 13 SGPT: 32 CHOLESTEROL: 243 H TRIGLYCERIDE: 139 LDL CHOL: 174 H HDL: 41 CHOL/HDL RATIO: 5.9 TIBC (WROX): 298 IRON (WROX): 76 TRANSFERRIN SATURATION: 25.5 VIT. B12 (WROX): 407 VITAMIN D TOTAL: 32 PROSTATIC SP ANTIGEN: < 0.10 --2022-- HLA B27: Negative IMAGING: #ECHO 05/03/2020 Mild [...] 1989, f/b renal, Bx proven, currently on ARBs, baseline Creat 2), obesity (BMI 36), LYN on CPAP, hypothyroidism, Prostate CA age 41 s/p radical prostatectomy, Lubar radiculopathy s/p discectomy after fall in 2014 and subsequent L5-S1 fusion in 2016 #skin lesions back: ? Hypertrophic AK, seborrheic keratosis, verruca -referral to teledermatology #LYN- 04/2022 moderate LYN AHI 26, lowest spO2 86% f/w non [facility] sleep clinic,09/20[place] sleep clinic -c/w APAP -fully compliant -c/w flonase for congestion prn #insomnia: Since LYN treatment optimized has not used trazadone prn taking loratadine pm and flonase #HTN well controlled #HL: LDL 174 (run out of statin for 2 weeks) -ATORVASTATIN 40 mg -Non-VA ASPIRIN 81MG -c/w irbesartan 300mg d -c/w AMLODIPINE 5MG -150 min mod cardio exercise /week #h/o prostate cancer s/p radical prostatectomy 2002, last PSA <0.1 (08/2023) seen by urology 04/2022, RTC prn - -c/to monitor PSA anuually and refer to urology if trending up #CKD,Proteinuria,biopsy proven primary FSGS : eGFR 33 He has taken immunosuppression in the past. on Jardiance and irbesartan 300mg daily adequate hydration encouraged -Non-VA CHOLECALCIF 25MCG (D3-1,000UNIT) avoid NSAID's no retinopathy or neuropathy -f/w non VA renal q3m #obesity BMI 36- on GLP1RA - declined referral to move/nutrition #NIDDM: well controlled, A1c 7.1 -c/w empagliflozin 10mg -c/w semaglutide 1mg qw -diet and exercise discussed -eye: 12/2022 Type 2 Diabetes without signs of retinopathy or macular edema OU - -feet:UTD #hypothyroidism, TSH 0.69, clinically and biochemically euthyroid on current dose #LBP w/radiculopathy: improved with acupuncture/injections -c/w tylenol prn -f/w pain service NON [facility] -c/w HEP -f/w neurology #allergic rhinits flonase prn claritin daily #leg cramps - much improved after LS injection and adding clonzepam -c/w BACLOFEN 10MG TID -c/w CLONAZEPAM 0.5MG TAB TID -f/w neurology Healthcare maintenance: --Lipids: LDL 174 (08/2023) --Diabetes: A1c 7.1 (02/2023) --Colon CA (50-75): DUE 12/2026 #colonOSCOPY 06/2011 repeat 10 yrs #EGD/COlonoscopy 12/2021 Dr [facility] >> COLONOSCOPY Polyp in ascending colon {8 mm) polypectomy --> path - Sessile serrated lesion, fragmented, without cytologic dysplasia. Internal & External hemorrhoids Diverticulosis descending and sigmoid colon Abnormal digital rectal exam - nodular prostate -->pt s/p prostatectomy >> EGD -Normal esophagus/stomach/examined duodenum. --Lung CA: n/a --PSA PSA < 0.10 (08/2023) --AAA (smoker/65): at 65 --Influenza (yrly): 2022 --COVID x3 --PCV13 2013 --PCV23: 2017 --HZV (>60yrs, x1): 2014 --RZV (>50yrs, x2): --TDAP: 2020 --HBV 2014 --Hep C screen: 2017 neg --HIV screen: --DEXA: --Advanced Directives: Return to clinic to see me 6m , sooner PRN. Virtual ( ), F2F ( x ) (x) fasting labs ordered prior to f/u ( ) request records from outside providers Medication Reconciliation: Outpatient: Has the patient been taking medications as documented in the EMLR? YES: The patient has been taking medications as documented in the EMLR. Essential Medication List for Review used to complete this medication reconciliation. INCLUDED IN THIS LIST: Alphabetical list of active outpatient prescriptions dispensed from this [facility] (local) and dispensed from another VA or [facility] facility (remote) as well as inpatient [...] whether with a VA or non-VA provider. PAVE Foot Check: Patient indicates foot exam (including monofilament test for sensation) was performed in the past year in the private sector: Date: April, ? Exact date is unknown Result: Normal /es/ LEV OCONNELL MD PHYSICIAN Signed: 09/06/2023 15:36 JUAN OCONNELLFIELD
--- OUTSIDE RECORDS SUMMARY | 2024-02-17 09:33 | XMS_ITS ---
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 [place] [facility] Address [address] [place] [address] Care Team Providers Care District Associate Judge Name Role Phone LEV OCONNELL Primary Care [...] ORGANIZAT ION (PPO) FED EMPLO [facility] Jan 26, 2020 [id number] [phone] ELIZABETH SMILEY JR PATIENT [employer] PREFERRED PROVIDER ORGANIZAT ION (PPO) DWAYNE AL EMPLO [facility] Feb 25, 2016 [id number] ELIZABETH SMILEY JR PATIENT [employer] PREFERRED PROVIDER ORGANIZAT ION (PPO) DWAYNE AL EMPL [facility] Feb 25, 2016 [id number] ELIAZBETH SMILEY JR PATIENT [employer] PREFERRED PROVIDER ORGANIZAT ION (PPO) DWAYNE AL EMPL [facility] Feb 25, 2016 [id number] ELIZABETH SMILEY PATIENT [employer] PREFERRED PROVIDER ORGANIZAT ION (PPO) DWAYNE AL EMPLO [facility] Feb 24, 2016 [id number] ELIZABETH SMILEY PATIENT [employer] PHARMACY MANAGEMENT PRESCRIPT ION DWAYNE AL EMPLO MIMI Jan 26, 2020 [id number] ELIZABETH SMILEY JR PATIENT [employer] PHARMACY MANAGEMENT PRESCRIPT ION DAIANA Feb 25, 2016 [id number] ELIZABETH SMILEY PATIENT [employer] PHARMACY MANAGEMENT PRESCRIPT ION DWAYNE AL EMPLO MIMI Feb 25, 2016 [id number] ELIZABETH SMILEY PATIENT [employer] RX PRESCRIPT ION DWAYNE AL EMPLO MIMI Feb 25, 2016 [id number] ELIZABETH SMILEY PATIENT [employer] RX [facility]CRIPT [facility] Feb 25, 2016 [id number] [phone] ELIZABETH SMILEY JR PATIENT [employer] POINT OF SERVICE [employer] Mar 20, 2002 [id number] ELIZABETH SMILEY PATIENT [employer]* POINT OF SERVICE Mar 20, 2002 [id number] ELIZABETH SMILEY PATIENT Selected Encounter This section includes the information on record at [place] for the Encounter. Date/Time Encounter Type Encounter Description Reason Pro vider Source Aug 18, 2023 07:52 AM Outpatient Encounter PRIMARY CARE/MEDICINE IHE Encounter Template Text not used by [place] Plan of Treatment: Future Appointments (+ 6 months) and Future Tests (+/- 45 days) The Plan of Treatment section includes future care activities for the patient from all [place] treatmentfacilities. This section includes future appointments and future orders which are active, pending or scheduled. Future Appointments This section includes appointments that were scheduled to occur 6 months from the date of the Encounter, up to a maximum of 20 appointments. The data comes from all [place] treatment facilities. Appointment Date/Time Appointment Type Appointme nt Facility Name Sep 04, 2023 01:30 PM [facility] Sep 29, 2023 02:30 PM AMBULATORY - NONE [place] [facility] [place] [facility] Nov 26, 2023 10:00 AM AMBULATORY - MEDICINE [place] [facility] [place] [facility] Nov 28, 2023 07:35 PM AMBULATORY - MEDICINE [place] [facility] [place] [facility] Dec 29, 2023 01:30 PM AM[place]ULATORY - [place]ICINE [place] [facility] [place] [facility] Jan 13, 2024 01:00 PM [facility] [place] [facility] Lab Results: +/- 30 days of the encounter This section includes the Chemistry and Hematology Lab Results on record with [place] for the patient. Radiology Reports and Pathology Reports are provided separately, in subsequent sections. Lab Results This section contains the Chemistry/Hematology Results that were resulted 30 days before or 30 daysafter the date of the Encounter. Date/Time Source Result Type Result - Unit Interpretation Reference Range Comment Aug 29, 2023 09:29 AM [facility] PROTEIN/CREATININE RATIO PANEL, URINE S pecimen Type: URINE No comment entered. Ordering Provider: LEV LIZAMA Report Released Date/Time: Aug 29, 2023 09:24 AM Reporting [facility] [address] [address] Performing Lab: [place] [facility] [address] [address] CREATININE URINE 64.72 mg/dL UR PROTEIN/CREATI NINE RATIO 1.6 <0.2 PROTEIN, URINE 102.7 mg/dL H 0.0-20.0 Aug 29, 2023 09:29 AM [facility] ELECTROLYTE PANEL Specimen Type: SERUM No comment entered. Ordering Provider: LEV LIZAMA Report Released Date/Time: Aug 29, 2023 09:24 AM Reporting Lab: [place] [facility] [place] [place] [address] [address] Performing Lab: [facility] [address] SODIUM 141 mmol/L 135-145 POTASSIUM 4.9 mmol/L 3.5-5.0 CHLORIDE 109 mmol/L 100-110 CO2 23 meq/L 20-30 Aug 29, 2023 09:00 AM [facility] THYROID T4 FREE(FT4) (WROX) Specimen Ty pe: SERUM No comment entered. Ordering Provider: LEV LIZAMA Report Released Date/Time: Mar 06, 2023 09:49 AM Reporting Lab: [facility] [address] [address] Performing Lab: [facility]ITALTR[facility] [address] [address] THYROID T4 FREE(FT4) (WROX) 1.31 ng/dL 0.6-1.6 Aug 29, 2023 09:00 AM [facility] PSA Specimen Type: SERUM No comment entered. Ordering Provider: LEV LIZAMA Report Released Date/Time: Mar 06, 2023 09:35 AM Reporting Lab: [facility] [address] Performing Lab: [facility]ITALTRN [facility] [address] [address] PSA < 0.10 ng/mL 0.00-4.00 Aug 29, 2023 09:00 AM [facility] VITAMIN D (25-OH) Specimen Type: SERUM No comment entered. Ordering Provider: LEV LIAZMA Report Released Date/Time: Mar 06, 2023 09:49 AM Reporting Lab: [facility] [address] Performing Lab: [facility]ITALTRN [facility] [address] [address] VITAMIN D (25-OH) 32 ng/mL 20-50 Aug 29, 2023 09:00 AM [facility] VITAMIN B12 Specimen Type: SERUM No comment entered. Ordering Provider: LEV LIZAMA Report Released Date/Time: Mar 06, 2023 09:49 AM Reporting Lab: [facility]TRN [facility]USE[address] [address] Performing Lab: [facility]ITALRW[facility]PITALN [facility]USE[address] [address] VITAMIN B12 407 pg/mL 200-900 Aug 29, 2023 09:00 AM [facility] HEMOGLOBIN A1C PANEL Specimen Type: BLOOD Comment: [...] Mar 06, 2023 09:49 AM Reporting Lab: [address] [address] Performing Lab: [address] [address] HEMOGLOBIN A1C 7.1 H 4.0-5.6 Aug 29, 2023 09:00 AM [facility] MICROALBUMIN CREATININE RATIO PANEL Spe cimen Type: URINE No comment entered. Ordering Provider: LEV LIZAMA Report Released Date/Time: Mar 06, 2023 09:49 AM Reporting Lab: [facility] [address] [address] Performing Lab: [facility] [address] [address] MICROALBUMIN/C REATININE RATIO 1278.8 mg/g H 0-29.9 MICROALBUMIN,Q UANTITATIVE 82.2 mg/dL RR UNAVAIL CREATININE URINE 64.28 mg/dL Aug 29, 2023 09:00 AM [facility] TSH Specimen Type: SERUM No comment entered. Ordering Provider: LEV LIZAMA Report Released Date/Time: Mar 06, 2023 09:49 AM Reporting Lab: [facility] [address] [address] Performing Lab: [facility] [address] [address] TSH 1.25 u[IU]/mL 0.35-5.00 Aug 29, 2023 09:00 AM RIGO LIVER FUNCTION Specimen Type: SERUM No comment entered. Ordering Provider: LEV LIZAMA Report Released Date/Time: Mar 06, 2023 09:49 AM Reporting Lab: [address] [address] Performing Lab: [address] [address] PROTEIN,TOTAL 6.3 g/dL 6.0-8.3 ALBUMIN 3.7 g/dL 3.5-5.0 ALKALINE PHOSPHATASE 49 U/L 40-150 AST 13 U/L 5-34 ALT 32 U/L BILIRUBIN, TOTAL 0.3 mg/dL 0.2-1.2 Aug 29, 2023 09:00 AM [facility] LIPID PANEL FASTING Specimen Type: SERUM No comment entered. Ordering Provider: LEV LIZAMA Report Released Date/Time: Mar 06, 2023 09:49 AM Reporting Lab: [address] [address] Performing Lab: [address] [address] CHOLESTEROL 243 mg/dL H TRIGLYCERIDE 139 mg/dL 0-150 LDL calculated 174 mg/dL H 0-129 CHOL/HDL 5.9 HDL CHOLESTEROL 41 mg/dL 40-60 Aug 29, 2023 09:00 AM [facility] BASIC METABOLIC PANEL (fasting) Specime n Type: SERUM No comment entered. Ordering Provider: LEV LIZAMA Report Released Date/Time: Mar 06, 2023 09:49 AM Reporting Lab: [address] [address] Performing Lab: [address] [address] UREA NITROGEN 54 mg/dL H 7-25 GLUCOSE 178 mg/dL H 65-100 SODIUM 141 mmol/L 135-145 POTASSIUM 4.9 mmol/L 3.5-5.0 CHLORIDE 108 mmol/L 100-110 CO2 25 meq/L 20-30 CREATININE, Serum 2.48 mg/dL H 0.50-1.40 eGFR(CKD-EPI 2020) 28 mL/min L >60 Aug 29, 2023 09:00 AM [facility] IRON & TIBC PANEL Specimen Type: SERUM No comment entered. Ordering Provider: LEV LIZAMA Report Released Date/Time: Mar 06, 2023 09:49 AM Reporting Lab: [address] [address] Performing Lab: [address] [address] TIBC 298 ug/dL 204-475 IRON 76 ug/dL 40-160 Transferrin Saturation 25.5 20.0-50.0 Aug 29, 2023 09:00 AM [facility] CBC AND DIFF (AUTO) Specimen Type: BLOOD No comment entered. Ordering Provider: LEV LIZAMA Report Released Date/Time: Mar 06, 2023 09:49 AM Reporting Lab: [address] [address] Performing Lab: [address] [address] WBC 9.47 10*3/uL 4.50-11.00 RBC 5.00 10*6/uL [...] and tobacco- related health factors from the [place] facility where the Encounter took place. Current Smoking Status This section includes the most current smoking, or tobacco-related health factor, from the [place] facility where the Encounter took place. Date/Time Current Smoking Status Comment Facil ity Feb 18, 2023 02:31 PM VA-TOBACCO FORMER USER [facility] Tobacco Use History This section includes a history of the smoking, or tobacco-related health factors, that were collected on or before the date of the Encounter. The data comes from the [place] facility where the Encounter took place. Date/Time Smoking Status/Tobacco Use Comment F acility Feb 18, 2023 02:31 PM VA-TOBACCO QUIT 15 YRS OR MORE [facility] Dec 31, 2021 01:00 PM [place]-TOBACCO FORMER USER [place] [facility] [place] [facility] Dec 31, 2021 01:00 PM [place]-TO[place]ACCO QUIT 15 YRS OR MORE [facility] Advance Directives: All historical and current Section Date Range: From patient's date of to the date document was created. This section includes ALL of a patient's completed or amended [place] Advance and Rescinded Directives. The entries below indicate that a directive exists for the patient, but an actual copy is not included with this document. The data comes from all [place] facilities. Date Advance Directives Provider Source July 02, 2022 ADVANCE DIRECTIVE SANDRA BROOKS [facility] Aug 07, 2021 ADVANCE DIRECTIVE RADHA SAHA [facility] Nov 28, 2020 ADVANCE DIRECTIVE GOLDIE DUTTA [facility] Encounter Notes: All associated encounter notes This section contains the clinical notes associated to the Encounter. Date/Time Encounter Note(s) Provider Source Aug 18, 2023 07:52 AM MEDICATION MGT NOT E: LOCAL TITLE: OUTPATIENT MEDICATION REQUEST STANDARD TITLE: MEDICATION MGT NOTE DATE OF NOTE: AUG 18, 2023@07:52 ENTRY DATE: AUG 18, 2023@07:52:26 AUTHOR: MITCH GRIJALVA COSIGNER: URGENCY: STATUS: COMPLETED Medication Request Date of Request: Aug Please renew. ATORVASTATIN TAB 80MG TAKE ONE-HALF TABLET BY MOUTH ONCE DAILY FOR CHOLESTEROL Quantity: 45 Refills: 3 /es/ Mitch Grijalva RN Registered Nurse Signed: 08/18/2023 07:52 Receipt Acknowledged By: 08/18/2023 08:28 /es/ LEV OCONNELL MD PHYSICIAN MITCH GRIJALVA
--- OUTSIDE RECORDS SUMMARY | 2024-02-17 09:33 | XMS_ITS | Encounter Summary ---
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 [place] Organization Department of [place] Address [address] [place] [address] Care Team Providers Care Wildlife Policy Professional Name Role Phone LEV OCONNELL Primary Care [...] (PPO) FED EMPLO YE Jan 26, 2020 [id number] ELIZABETH SMILEY JR PATIENT [employer] PREFERRED PROVIDER ORGANIZAT ION (PPO) DWAYNE AL EMPLO YE Feb 25, 2016 [id number] ELIZABETH SMILEY JR PATIENT [employer] PREFERRED PROVIDER ORGANIZAT ION (PPO) DWAYNE AL EMPL [facility] Feb 25, 2016 [id number] [phone] ELIZABETH SMILEY JR PATIENT [employer] PREFERRED PROVIDER ORGANIZAT ION (PPO) DWAYNE AL EMPL [facility] Feb 25, 2016 [id number] ELIZABETH SMILEY PATIENT [employer] PREFERRED PROVIDER ORGANIZAT ION (PPO) DWAYNE AL EMPLO MIMI COOLEY Feb 24, 2016 [id number] ELIZABETH SMILEY PATIENT [employer] PHARMACY MANAGEMENT PRESCRIPT ION DWAYNE AL EMPLO MIMI Jan 26, 2020 [id number] ELIZABETH SMILEY JR PATIENT [employer] PHARMACY MANAGEMENT PRESCRIPT ION KRAFT Feb 25, 2016 [id number] [phone] ELIZABETH SMILEY PATIENT [employer] PHARMACY MANAGEMENT PRESCRIPT ION DWAYNE AL EMPLO MIMI Feb 25, 2016 [id number] ELIZABETH SMILEY PATIENT [employer]ET[employer] RX PRESCRIPT ION DWAYNE AL EMPLO MIMI Feb 25, 2016 [id number] ELIZABETH SMILEY PATIENT AETNA RX PRESCRIPT [facility] Feb 25, 2016 [id number] BALJIT ELIZABETH BELCHER PATIENT [employer] POINT OF SERVICE TYCO Mar 20, 2002 [id number] ELIZABETH SMILEY PATIENT [employer]* POINT OF SERVICE Mar 20, 2002 [id number] ELIZABETH SMILEY PATIENT Selected Encounter This section includes the information on record at [place] for the Encounter. Date/Time Encounter Type Encounter Description Reason Provider Source Aug 18, 2023 12:10 PM QNHP OL DIG ASSMT&MGMT 5-10 CLINICAL PHARMACY ICD-10-CM G47.09 Other insomnia JUDITH ESPARZA IHE Encounter Template Text not used by AL Assessments - Encounter Diagnoses This section includes the primary and secondary diagnoses documented for the Encounter. Date/Time Primary/Secondary Diagnosis Diagnosis Name Provider Source Aug 18, 2023 12:10 PM PRIMARY Other insomnia SHELDONJASP ER LALI D [place] [facility] [facility] Plan of Treatment: Future Appointments (+ 6 months) and Future Tests (+/- 45 days) The Plan of Treatment section includes future care activities for the patient from all [place] treatmentfaatrium health stanlyities. This section includes future appointments and future [...] NONE [facility] [place] [facility] Nov 26, 2023 10:00 AM AMBULATORY - MEDICINE [place] [facility] [facility] Nov 28, 2023 07:35 PM AMBULATORY - MEDICINE AL [facility] [place] [facility] Dec 29, 2023 01:30 PM AMBULATORY - MEDICINE AL [facility] [place] [facility] Jan 13, 2024 01:00 PM AMBULATORY - MEDICINE AL [facility] [facility] Lab Results: +/- 30 days of the [...] Range Comment Aug 29, 2023 09:[address] PROTEIN/CREATININE RATIO PANEL, URINE S pecimen Type: URINE No comment entered. Ordering Provider: LEV LIZAMA Report Released Date/Time: Aug 29, 2023 09:24 AM Reporting Lab: [facility] [address] [address] Performing Lab: [facility] [address] [address] CREATININE URINE 64.72 mg/dL UR PROTEIN/CREATI NINE RATIO 1.6 <0.2 PROTEIN, URINE 102.7 mg/dL H 0.0-20.0 Aug 29, 2023 09:[address] ELECTROLYTE PANEL Specimen Type: SERUM No comment entered. Ordering Provider: LEV LIZAMA Report Released Date/Time: Aug 29, 2023 09:24 AM Reporting Lab: [facility] [address] [address] Performing Lab: [facility] [address] [address] SODIUM 141 mmol/L 135-145 POTASSIUM 4.9 mmol/L 3.5-5.0 CHLORIDE 109 mmol/L 100-110 CO2 23 meq/L -Aug 29, 2023 09:[address] THYROID T4 FREE(FT4) (WROX) Specimen Ty pe: SERUM No comment entered. Ordering Provider: LEV LIZAMA Report Released Date/Time: Mar 06, 2023 09:49 AM Reporting Lab: [facility] [address] [address] Performing Lab: [facility] [address] [facility] [address] THYROID T4 FREE(FT4) (WROX) 1.31 ng/dL 0.6-1.6 Aug 29, 2023 09:[address] VITAMIN D (25-OH) Specimen Type: SERUM No comment entered. Ordering Provider: LEV LIZAMA Report Released Date/Time: Mar 06, 2023 09:49 AM Reporting Lab: [facility] [address] [address] Performing Lab: [facility] [address] [address] VITAMIN D (25-OH) 32 ng/mL -Aug 29, 2023 09:[address] VITAMIN B12 Specimen Type: SERUM No comment entered. Ordering Provider: LEV LIZAMA Report Released Date/Time: Mar 06, 2023 09:49 AM Reporting Lab: [facility] [address] [address] Performing Lab: [address] [address] VITAMIN B12 407 pg/mL 200-900 Aug 29, 2023 09:[address] PSA Specimen Type: SERUM No comment entered. Ordering Provider: LEV LIZAMA Report Released Date/Time: Mar 06, 2023 09:35 AM Reporting Lab: [facility] [address] [address] Performing Lab: [address] [address] PSA < 0.10 ng/mL 0.00-4.00 Aug 29, 2023 09:[address] HEMOGLOBIN A1C PANEL Specimen Type: BLOOD Comment: [...] Mar 06, 2023 09:49 AM Reporting Lab: [facility] [address] [address] Performing Lab: [address] [address] HEMOGLOBIN A1C 7.1 H 4.0-5.6 Aug 29, 2023 09:[address] MICROALBUMIN CREATININE RATIO PANEL Spe cimen Type: URINE No comment entered. Ordering Provider: LEV LIZAMA Report Released Date/Time: Mar 06, 2023 09:49 AM Reporting Lab: [facility] [address] [address] Performing Lab: [address] [address] MICROALBUMIN/C REATININE RATIO 1278.8 mg/g H 0-29.9 MICROALBUMIN,Q UANTITATIVE 82.2 mg/dL RR UNAVAIL CREATININE URINE 64.28 mg/dL Aug 29, 2023 09:[address] TSH Specimen Type: SERUM No comment entered. Ordering Provider: LEV LIZAMA Report Released Date/Time: Mar 06, 2023 09:49 AM Reporting Lab: [facility] [address] [address] Performing Lab: [facility] [address] [address] TSH 1.25 u[IU]/mL 0.35-5.00 Aug 29, 2023 09:[address] LIVER FUNCTION Specimen Type: SERUM No comment entered. Ordering Provider: LEV LIZAMA Report Released Date/Time: Mar 06, 2023 09:49 AM Reporting Lab: [facility] [address] [address] Performing Lab: [address] [address] PROTEIN,TOTAL 6.3 g/dL 6.0-8.3 ALBUMIN 3.7 g/dL 3.5-5.0 ALKALINE PHOSPHATASE 49 U/L 40-150 AST 13 U/L 5-34 ALT 32 U/L BILIRUBIN, TOTAL 0.3 mg/dL 0.2-1.2 Aug 29, 2023 09:[address] LIPID PANEL FASTING Specimen Type: SERUM No comment entered. Ordering Provider: LEV LIZAMA Report Released Date/Time: Mar 06, 2023 09:49 AM Reporting Lab: [facility] [address] [address] Performing Lab: [facility] [address] [address] CHOLESTEROL 243 mg/dL H TRIGLYCERIDE 139 mg/dL 0-150 LDL calculated 174 mg/dL H 0-129 CHOL/HDL 5.9 HDL CHOLESTEROL 41 mg/dL 40-60 Aug 29, 2023 09:[address] BASIC METABOLIC PANEL (fasting) Specime n Type: SERUM No comment entered. Ordering Provider: LEV LIZAMA Report Released Date/Time: Mar 06, 2023 09:49 AM Reporting Lab: [address] [address] Performing Lab: [facility] [address] UREA NITROGEN 54 mg/dL H 7-25 GLUCOSE 178 mg/dL H 65-100 SODIUM 141 mmol/L 135-145 POTASSIUM 4.9 mmol/L 3.5-5.0 CHLORIDE 108 mmol/L 100-110 CO2 25 meq/L 20-30 CREATININE, Serum 2.48 mg/dL H 0.50-1.40 eGFR(CKD-EPI 2020) 28 mL/min L >60 Aug 29, 2023 09:[address] IRON & TIBC PANEL Specimen Type: SERUM No comment entered. Ordering Provider: LEV LIZAMA Report Released Date/Time: Mar 06, 2023 09:49 AM Reporting Lab: [address] [address] Performing Lab: [address] [address] TIBC 298 ug/dL 204-475 IRON 76 ug/dL 40-160 Transferrin Saturation 25.5 20.0-50.0 Aug 29, 2023 09:[address] CBC AND DIFF (AUTO) Specimen Type: BLOOD No comment entered. Ordering Provider: LEV LIZAMA Report Released Date/Time: Mar 06, 2023 09:49 AM Reporting Lab: [address] [address] Performing Lab: [address] [address] WBC 9.47 10*3/uL 4.50-11.00 RBC 5.00 10*6/uL [...] 18, 2023 02:31 PM VA-TOBACCO FORMER USER [facility] Tobacco Use History This section includes a history of the smoking, or tobacco-related health factors, that were collected on or before the date of the Encounter. The data comes from the [place] facility where the Encounter took place. Date/Time Smoking Status/Tobacco Use Comment F acility Feb 18, 2023 02:31 PM VA-TOBACCO QUIT 15 YRS OR MORE [facility] Dec 31, 2021 01:00 PM VA-TOBACCO FORMER USER [facility] Dec 31, 2021 01:00 PM AL-TOBACCO QUIT 15 YRS OR MORE [facility] Advance Directives: All historical and current [...] 02, 2022 ADVANCE DIRECT[facility] Aug 07, 2021 ADVANCE DIRECTIVE RADHA SAHA [facility] Nov 28, 2020 ADVANCE DIRECTIVE GOLDIE DUTTA [facility] Encounter Notes: All associated encounter notes This section contains the clinical notes associated to the Encounter. Date/Time Encounter Note(s) Provider Source Aug 18, 2023 12:10 PM MEDICATION MGT CON SULT: LOCAL TITLE: CONSULT REPORT/NON FORMULARY PADR STANDARD TITLE: MEDICATION MGT CONSULT DATE OF NOTE: AUG 18, 2023@12:10 ENTRY DATE: AUG 18, 2023@12:10:58 AUTHOR: FESTUS ESPARZA COSIGNER: URGENCY: STATUS: COMPLETED The medical record has been reviewed with regard to this restricted drug request. Medication requested: ELECTRODE SPRAY,SIGNASPRAY Medication indication: Other Insomnia(ICD-10-CM G47.09) Medical history relevant to this request: See PROSTHETICS REQUEST on [id number] for issuance of Alpha-Stim. Requested agent required for use. -=-=-=-=-=-=-=-=-=-=-=- =-=-=-=-=-=-=-=-==-=-=- =-=-=-=-=-=-=-=-=-=-=-= -=-=-=-=-=- The request is approved - No formulary-preferred alternative Time spent: 5minutes /es/ Festus Esparza PharmD Clinical Pharmacist Practitioner Signed: 08/18/2023 12:12 FESTUS ESPARZA [facility]
--- OUTSIDE RECORDS SUMMARY | 2024-02-17 09:33 | XMS_ITS | Encounter Summary ---
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 of Vetera ns Affairs ([place]) Organization Department of Vetera Affairs [place] Address [address] [place] [address] Care Team Providers Care Biomedical Analytical Scientist Name Role Phone LEV OCONNELL Primary Care [...] (PPO) FED EMPLO YEES Jan 26, 2020 [id number] ELIZABETH SMILEY JR PATIENT [employer] PREFERRED PROVIDER ORGANIZAT ION (PPO) DWAYNE AL EMPL [facility] Feb 25, 2016 [id number] ELIZABETH SMILEY JR PATIENT [employer] PREFERRED PROVIDER ORGANIZAT ION (PPO) DWAYNE AL EMPL [facility] Feb 25, 2016 [id number] ELIZABETH SMILEY PATIENT [employer] PREFERRED PROVIDER ORGANIZAT ION (PPO) DWAYNE AL EMPLO YE Feb 25, 2016 [id number] ELIZABETH SMILEY JR PATIENT [employer] PREFERRED PROVIDER ORGANIZAT ION (PPO) DWAYNE MORALESO MIMI COOLEY Feb 24, 2016 [id number] ELIZABETH SMILEY PATIENT [employer] PHARMACY MANAGEMENT PRESCRIPT ION DWAYNE AL DEEP COOLEY Jan 26, 2020 [id number] ELIZABETH SMILEY JR PATIENT [employer] PHARMACY MANAGEMENT PRESCRIPT ION DAIANA Feb 25, 2016 [id number] ELIZABETH SMILEY PATIENT [employer] PHARMACY MANAGEMENT PRESCRIPT ION DWAYNE AL MIO MIMI Feb 25, 2016 [id number] ELIZABETH SMILEY PATIENT [employer] RX PRESCRIPT ION DWAYNE MORALESO MIMI COOLEY Feb 25, 2016 [id number] ELIZABETH SMILEY PATIENT [employer] RX PRESCRIPT ION FEHBP Feb 25, 2016 [id number] ELIZABETH SMILEY JR PATIENT [employer] POINT OF SERVICE TYCO Mar 20, 2002 [id number] ELIZABETH SMILEY PATIENT [employer]* POINT OF SERVICE Mar 20, 2002 [id number] ELIZABETH SMILEY PATIENT Selected Encounter This section includes the information on record at ID for the Encounter. Date/Time Encounter Type Encounter Description Reason Pro vider Source July 10, 2023 12:00 AM Outpatient Encounter EVENT (HISTORICAL) IHE Encounter Template Text not used by ID Plan of Treatment: Future Appointments (+ 6 months) and Future Tests (+/- 45 days) The Plan of Treatment section includes future care activities for the patient from all ID treatmentfacilities. This section includes future appointments and future orders which are active, pending or scheduled. Future Appointments This section includes appointments that were scheduled to occur 6 months from the date of the Encounter, up to a maximum of 20 appointments. The data comes from all ID treatment facilities. Appointment Date/Time Appointment Type Appointme nt Facility Name Aug 08, 2023 03:00 PM AMBULATORY - MEDICINE [facility] [place] [facility] Aug 13, 2023 03:10 PM AMBULATORY - MEDICINE ID [facility] [place] [facility] Sep 04, 2023 01:30 PM [facility] 29, 2023 02:30 PM AMBULATORY - NONE [place] [facility] [place] [facility] Nov 26, 2023 10:00 AM AMBULATORY - MEDICINE ID C [facility] [place] [facility] Nov 28, 2023 07:35 PM AMBULATORY - MEDICINE ID C [facility] [facility] Dec 29, 2023 01:30 PM AMBULATORY - MEDICINE [facility] Lab Results: +/- 30 days of the encounter This section includes the Chemistry and Hematology Lab Results on record with ID for the patient. Radiology Reports and Pathology Reports are provided separately, in subsequent sections. Lab Results This section contains the Chemistry/Hematology Results that were resulted 30 days before or 30 daysafter the date of the Encounter. Date/Time Source Result Type Result - Unit Interpretation Reference Range Comment June 18, 2023 07:38 AM [facility] THYROID T4 FREE(FT4) (WROX) Specimen Type: SERUM No comment entered. Ordering Provider: LEV LIZAMA Report Released Date/Time: Jun 16, 2023 11:42 AM Reporting Lab: [facility] [address] [facility] [address] Performing Lab: [facility] [address] [facility] [address] THYROID T4 FREE(FT4) (WROX) 1.50 ng/dL 0.6-1.6 June 18, 2023 07:38 AM [facility] HEMOGLOBIN A1C PANEL Specimen Type: BLOOD [...] Jun 16, 2023 11:42 AM Reporting Lab: [facility] [address] [facility] [address] Performing Lab: [facility] [address] [facility] [address] HEMOGLOBIN A1C 7.4 H 4.0-5.6 June 18, 2023 07:38 AM [facility] TSH Specimen Type: SERUM No comment entered. Ordering Provider: LEV LIZAMA Report Released Date/Time: Jun 16, 2023 11:42 AM Reporting Lab: [facility] [address] [facility] [address] Performing Lab: [facility] [address] [facility] [address] TSH 0.33 u[IU]/mL L 0.35-5.00 Social History: Smoking Status (Most current) and Tobacco Use (All prior to encounter date) This section includes the most current, and the historical, smoking and tobacco- related health factors from the ID facility where the Encounter took place. Current Smoking Status This section includes the most current smoking, or tobacco-related health factor, from the ID facility where the Encounter took place. Date/Time Current Smoking Status Comment Corina ity Feb 18, 2023 02:31 PM VA-TOBACCO QUIT 15 YRS OR MORE [facility] Tobacco Use History This section includes a history of the smoking, or tobacco-related health factors, that were collected on or before the date of the Encounter. The data comes from the ID facility where the Encounter took place. Date/Time Smoking Status/Tobacco Use Comment F acility Feb 18, 2023 02:31 PM VA-TOBACCO QUIT 15 YRS OR MORE [facility] [place] [facility] Dec 31, 2021 01:00 PM VA-TOBACCO FORMER USER ID [facility] [facility] Dec 31, 2021 01:00 PM VA-TOBACCO QUIT 15 YRS OR MORE [facility] Advance Directives: All historical and current Section Date Range: From patient's date of to the date document was created. This section includes ALL of a patient's completed or amended ID Advance and Rescinded Directives. The entries below indicate that a directive exists for the patient, but an actual copy is not included with this document. The data comes from all ID facilities. Date Advance Directives Provider Source July 02, 2022 ADVANCE DIRECTIVE CCEILIASANDRA SPRPuma [facility] Aug 07, [address] [facility] Nov 28, 2020 ADVANCE DIRECTIVE GOLDIE DUTTA [facility] Encounter Notes: All associated encounter notes This section contains the clinical notes associated to the Encounter. Date/Time Encounter Note(s) Provider Source July 10, 2023 12:00 AM NONVA NOTE: LOCAL TITLE: COMMUNITY CARE-URGENT CARE RECORD STANDARD TITLE: NONVA NOTE DATE OF NOTE: JULY 10, 2023 ENTRY DATE: AUG 22, 2023@14:05:21 AUTHOR: FELY WHYTE EXP COSIGNER: URGENCY: STATUS: COMPLETED VistA Imaging - Scanned Document SCANNED DOCUMENT SIGNATURE NOT REQUIRED Electronically Filed: 08/22/2023 by: FELY WHYTE LICENSED PRACTICAL NURSE FELY WHYTE [facility]
--- OUTSIDE RECORDS SUMMARY | 2024-02-17 09:33 | XMS_ITS ---
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 Address [address] [place] [address] Care Team Providers Care Digital Program Manager Name Role Phone LEV OCONNELL Primary [...] [facility] Jan 26, 2020 [id number] ELIZABETH SMILEY JR PATIENT [employer] PREFERRED PROVIDER ORGANIZAT ION (PPO) [place] AL EMPLO [facility] Feb 25, 2016 [id number] ELIZABETH SMILEY JR PATIENT AETNA PREFERRED PROVIDER ORGANIZAT ION (PPO) DWAYNE AL EMPL [facility] Feb 25, 2016 [id number] ELIZABETH SMILEY JR PATIENT AETNA PREFERRED PROVIDER ORGANIZAT ION (PPO) DW[place]NE AL EMPL [facility] Feb 25, 2016 [id number] [id number] ELIZABETH SMILEY PATIENT AETNA PREFERRED PROVIDER ORGANIZAT ION (PPO) DWAYNE AL MIO MIMI [facility] Feb 24, 2016 [id number] ELIZABETH SMILEY PATIENT [employer] PHARMACY MANAGEMENT PRESCRIPT ION DW[place] AL EMPLO MIMI Jan 26, 2020 [id number] ELIZABETH SMILEY JR PATIENT [employer] PHARMACY MANAGEMENT PRESCRIPT ION [facility] Feb 25, 2016 [id number] ELIZABETH SMILEY PATIENT [employer] PHARMACY MANAGEMENT PRESCRIPT ION [place] EMPLO MIMI Feb 25, 2016 [id number] ELIZABETH SMILEY PATIENT AETNA RX PRESCRIPT ION [place] EMPLO MIMI Feb 25, 2016 [id number] ELIZABETH SMILEY PATIENT AETNA RX PRESCRIPT ION [facility] Feb 25, 2016 [id number] ELIZABETH SMILEY JR PATIENT [employer] POINT OF SERVICE [employer] Mar 20, 2002 [id number] ELIZABETH SMILEY PATIENT [employer]IGNA* POINT OF SERVICE Mar 20, 2002 [id number] ELIZABETH SMILEY PATIENT Selected Encounter This section includes the information on record at [place] for the Encounter. Date/Time Encounter Type Encounter Description Reason Pro vider Source June 26, 2023 12:00 AM Outpatient Encounter EVENT (HISTORICAL) IHE Encounter Template Text not used by [place] Plan of Treatment: Future Appointments (+ 6 months) and Future Tests (+/- 45 days) The Plan of Treatment section includes future care activities for the patient from all [place] treatmentfacilities. This section includes future appointments and [...] - MEDICINE [place] [facility] [place] [facility] Aug 13, 2023 03:10 PM AMBULATORY - MEDICINE [place] [facility] [place] [facility] Sep 04, 2023 01:30 PM AMBULATORY - MEDICINE [place] Sep 29, 2023 02:30 PM AMBULATORY - NONE [place] [facility] [place] [facility] Nov 26, 2023 10:00 AM AMBULATORY - MEDICINE [place] [facility] [place] [facility] Nov 28, 2023 07:35 PM AMBULATORY - MEDICINE [place] [facility] Lab Results: +/- 30 days [...] Range Comment June 18, 2023 07:38 AM [place] [facility] THYROID T4 FREE(FT4) (WROX) Specimen Type: SERUM No comment entered. Ordering Provider: LEV LIZAMA Report Released Date/Time: Jun 16, 2023 11:42 AM Reporting Lab: [place] [facility] [address] [facility] [address] Performing Lab: [place] [facility] [address] [facility] [address] THYROID T4 FREE(FT4) (WROX) 1.50 ng/dL 0.6-1.6 June 18, 2023 07:38 AM [place] [facility] TSH Specimen Type: SERUM No comment entered. Ordering Provider: LEV LIZAMA Report Released Date/Time: Jun 16, 2023 11:42 AM Reporting Lab: [place] [facility] [address] [facility] [address] Performing Lab: [place] [address] [address] TSH 0.33 u[IU]/mL L 0.35-5.00 June 18, 2023 07:38 AM [facility] HEMOGLOBIN A1C PANEL Specimen Type: [...] Jun 16, 2023 11:42 AM Reporting Lab: [facility] [address] [facility] [address] Performing Lab: [address] [address] HEMOGLOBIN A1C 7.4 H 4.0-5.6 Social History: [...] Facil ity Feb 18, 2023 02:31 PM [place]-TOBACCO QUIT 15 YRS OR MORE [facility] Tobacco Use History This section includes a history of the smoking, or tobacco-related health factors, that were collected on or before the date of the Encounter. The data comes from the [place] facility where the Encounter took place. Date/Time Smoking Status/Tobacco Use Comment F acility Feb 18, 2023 02:31 PM [place]-TOBACCO QUIT 15 YRS OR MORE [facility] Dec 31, 2021 01:00 PM [place]-TOBACCO FORMER USER [facility] Dec 31, 2021 01:00 PM [place]-TOBACCO QUIT 15 YRS OR MORE [facility] Advance Directives: All historical and [...] Source July 02, 2022 ADVANCE DIRECTIVE CECILIAKEODIONE [place]EE [place] Aug 07, 2021 ADVANCE DIRECTIVE MARIA ARADHA KIT [facility] [place] Nov 28, 2020 ADVANCE DIRECTIVE GOLDIE DUTTA KIT [facility] IE Encounter Notes: All associated encounter notes This section contains the clinical notes associated to the Encounter. Date/Time Encounter Note(s) Provider Source June 26, 2023 12:00 AM NONVA NOTE: LOCAL TITLE: NON-VA OUTPATIENT NOTES STANDARD TITLE: NONVA NOTE DATE OF NOTE: JUNE 26, 2023 ENTRY DATE: AUG 20, 2023@15:33:18 AUTHOR: FELY WHYTE EXP COSIGNER: URGENCY: STATUS: COMPLETED VistA Imaging - Scanned Document SCANNED DOCUMENT SIGNATURE NOT REQUIRED Electronically Filed: 08/20/2023 by: FELY WHYTE LICENSED PRACTICAL NURSE FELY WHYTE [place] [facility]
--- OUTSIDE RECORDS SUMMARY | 2024-02-17 09:33 | XMS_ITS | Encounter Summary ---
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 Address [address] [place] [address] Care Team Providers Care Materials Manager Name Role Phone LEV OCONNELL Primary [...] PROVIDER ORGANIZAT ION (PPO) FED EMPLO [facility] Jan 26, 2020 [id number] ELIZABETH SMILEY JR PATIENT AETNA PREFERRED PROVIDER ORGANIZAT ION (PPO) DW[place]NE AL EMPLO [facility] Feb 25, 2016 [id number] ELIZABETH SMILEY JR PATIENT AETNA PREFERRED PROVIDER ORGANIZAT ION (PPO) DWAYNE AL EMPL [facility] Feb 25, 2016 [id number] [phone] ELIZABETH SMILEY JR PATIENT AETNA PREFERRED PROVIDER ORGANIZAT ION (PPO) DW[place]NE AL EMPL [facility] Feb 25, 2016 [id number] ELIZABETH SMILEY PATIENT AETNA PREFERRED PROVIDER ORGANIZAT ION (PPO) DWAYNE AL MIO MIMI [facility] Feb 24, 2016 [id number] ELIZABETH SMILEY PATIENT [employer] PHARMACY MANAGEMENT PRESCRIPT ION [place] EMPLO [facility] [place] Jan 26, 2020 [id number] ELIZABETH SMILEY JR PATIENT [employer] PHARMACY MANAGEMENT PRESCRIPT ION [facility] Feb 25, 2016 [id number] ELIZABETH SMILEY PATIENT AETNA PHARMACY MANAGEMENT PRESCRIPT ION [place] EMPLO MIMI Feb 25, 2016 [id number] ELIZABETH SMILEY PATIENT AETNA RX PRESCRIPT ION [place] EMPLO [facility] [place] Feb 25, 2016 [id number] ELIZABETH SMILEY PATIENT AETNA RX PRESCRIPT ION [facility] Feb 25, 2016 [id number] ELIZABETH SMILEY JR PATIENT C[employer]NA POINT OF SERVICE [employer] Mar 20, 2002 [id number] ELIZABETH SMILEY PATIENT CIGNA* POINT OF SERVICE Mar 20, 2002 [id number] ELIZABETH SMILEY PATIENT Selected Encounter This section includes the information on record at [place] for the Encounter. Date/Time Encounter Type Encounter Description Reason Provider Source Aug 18, 2023 06:51 AM Outpatient Encounter EVENT (HISTORICAL) EREN GRIJALVA Encounter Template Text not used by [place] Plan of Treatment: Future Appointments (+ 6 months) and Future Tests (+/- 45 days) The Plan of Treatment section includes future care activities for the patient from all [place] treatmentfacilities. This section includes future appointments and future orders which are active, pending or scheduled. Future Appointments This section includes appointments that were scheduled to occur 6 months from the date of the Encounter, up to a maximum of 20 appointments. The data comes from all [place] treatment facilities. Appointment Date/Time Appointment Type Appointme nt Facility Name Sep 04, 2023 01:30 PM AMBULATORY - MEDICINE [facility] Sep 29, 2023 02:30 PM AMBULATORY - NONE [place] [facility] [place] [facility] Nov 26, 2023 10:00 AM AMBULATORY - MEDICINE [place] [facility] [place] [facility] Nov 28, 2023 07:35 PM AMBULATORY - MEDICINE [place] [facility] [place] [facility] Dec 29, 2023 01:30 PM AMBULATORY - MEDICINE [place] [facility] Jan 13, 2024 01:00 PM AMBULATORY - MEDICINE [place] [place] [facility] Lab Results: +/- 30 days of the encounter This section includes the Chemistry and Hematology Lab Results on record with [place] for the patient. Radiology Reports and Pathology Reports are provided separately, in subsequent sections. Lab Results This section contains the Chemistry/Hematology Results that were resulted 30 days before or 30 daysafter the date of the Encounter. Date/Time Source Result Type Result - Unit Interpretation Reference Range Comment Aug 29, 2023 09:29 AM [place] PROTEIN/CREATININE RATIO PANEL, URINE S pecimen Type: URINE No comment entered. Ordering Provider: LEV LIZAMA Report Released Date/Time: Aug 29, 2023 09:24 AM Reporting Lab: [place] [facility] [address] [facility] [address] Performing Lab: [place] [address] [address] CREATININE URINE 64.72 mg/dL UR PROTEIN/CREATI NINE RATIO 1.6 <0.2 PROTEIN, URINE 102.7 mg/dL H 0.0-20.0 Aug 29, 2023 09:29 AM [place] ELECTROLYTE PANEL Specimen Type: SERUM No comment entered. Ordering Provider: LEV LIZAMA Report Released Date/Time: Aug 29, 2023 09:24 AM Reporting Lab: [place] [facility] [address] [facility] [address] Performing Lab: [place] [facility] [address] [address] SODIUM 141 mmol/L 135-145 POTASSIUM 4.9 mmol/L 3.5-5.0 CHLORIDE 109 mmol/L 100-110 CO2 23 meq/L 20-30 Aug 29, 2023 09:00 AM [place] THYROID T4 FREE(FT4) (WROX) Specimen Ty pe: SERUM No comment entered. Ordering Provider: LEV LIZAMA Report Released Date/Time: Mar 06, 2023 09:49 AM Reporting Lab: [facility] [address] [facility] [address] Performing Lab: [facility] [address] [facility] [address] THYROID T4 FREE(FT4) (WROX) 1.31 ng/dL 0.6-1.6 Aug 29, 2023 09:00 AM [place] PSA Specimen Type: SERUM No comment entered. Ordering Provider: LEV LIZAMA Report Released Date/Time: Mar 06, 2023 09:35 AM Reporting Lab: [facility] [address] [facility] [address] Performing Lab: [facility] [address] [facility] [address] PSA < 0.10 ng/mL 0.00-4.00 Aug 29, 2023 09:00 AM [place] VITAMIN D (25-OH) Specimen Type: SERUM No comment entered. Ordering Provider: LEV LIZAMA Report Released Date/Time: Mar 06, 2023 09:49 AM Reporting Lab: [facility] [address] Performing Lab: [facility] [address] [facility] [address] VITAMIN D (25-OH) 32 ng/mL 20-50 Aug 29, 2023 09:00 AM [place] VITAMIN B12 Specimen Type: SERUM No comment entered. Ordering Provider: LEV LIZAMA Report Released Date/Time: Mar 06, 2023 09:49 AM Reporting Lab: [facility] [address] [facility] [address] Performing Lab: [facility] [address] VITAMIN B12 407 pg/mL 200-900 Aug 29, 2023 09:00 AM [place] HEMOGLOBIN A1C PANEL Specimen Type: BLOOD Comment: [...] Mar 06, 2023 09:49 AM Reporting Lab: [facility] [address] [address] Performing Lab: [address] [address] HEMOGLOBIN A1C 7.1 H 4.0-5.6 Aug 29, 2023 09:00 AM [place] MICROALBUMIN CREATININE RATIO PANEL Spe cimen Type: URINE No comment entered. Ordering Provider: LEV LIZAMA Report Released Date/Time: Mar 06, 2023 09:49 AM Reporting Lab: [facility] [address] [address] Performing Lab: [facility] [address] [address] MICROALBUMIN/C REATININE RATIO 1278.8 mg/g H 0-29.9 MICROALBUMIN,Q UANTITATIVE 82.2 mg/dL RR UNAVAIL CREATININE URINE 64.28 mg/dL Aug 29, 2023 09:00 AM [place] TSH Specimen Type: SERUM No comment entered. Ordering Provider: LEV LIZAMA Report Released Date/Time: Mar 06, 2023 09:49 AM Reporting Lab: [facility] [address] [address] Performing Lab: [facility] [address] [address] TSH 1.25 u[IU]/mL 0.35-5.00 Aug 29, 2023 09:00 AM [place] LIVER FUNCTION Specimen Type: SERUM No comment entered. Ordering Provider: LEV LIZAMA Report Released Date/Time: Mar 06, 2023 09:49 AM Reporting Lab: [facility] [address] [facility] [address] Performing Lab: [address] [address] PROTEIN,TOTAL 6.3 g/dL 6.0-8.3 ALBUMIN 3.7 g/dL 3.5-5.0 ALKALINE PHOSPHATASE 49 U/L 40-150 AST 13 U/L 5-34 ALT 32 U/L BILIRUBIN, TOTAL 0.3 mg/dL 0.2-1.2 Aug 29, 2023 09:00 AM [place] BASIC METABOLIC PANEL (fasting) Specime n Type: SERUM No comment entered. Ordering Provider: LEV LIZAMA Report Released Date/Time: Mar 06, 2023 09:49 AM Reporting Lab: [address] [address] Performing Lab: [address] [address] UREA NITROGEN 54 mg/dL H 7-25 GLUCOSE 178 mg/dL H 65-100 SODIUM 141 mmol/L 135-145 POTASSIUM 4.9 mmol/L 3.5-5.0 CHLORIDE 108 mmol/L 100-110 CO2 25 meq/L 20-30 CREATININE, Serum 2.48 mg/dL H 0.50-1.40 eGFR(CKD-EPI 2020) 28 mL/min L >60 Aug 29, 2023 09:00 AM [place] LIPID PANEL FASTING Specimen Type: SERUM No comment entered. Ordering Provider: LEV LIZAMA Report Released Date/Time: Mar 06, 2023 09:49 AM Reporting Lab: [address] [address] Performing Lab: [address] [address] CHOLESTEROL 243 mg/dL H TRIGLYCERIDE 139 mg/dL 0-150 LDL calculated 174 mg/dL H 0-129 CHOL/HDL 5.9 HDL CHOLESTEROL 41 mg/dL 40-60 Aug 29, 2023 09:00 AM [place] IRON & TIBC PANEL Specimen Type: SERUM No comment entered. Ordering Provider: LEV LIZAMA Report Released Date/Time: Mar 06, 2023 09:49 AM Reporting Lab: [address] [address] Performing Lab: [address] [address] TIBC 298 ug/dL 204-475 IRON 76 ug/dL 40-160 Transferrin Saturation 25.5 20.0-50.0 Aug 29, 2023 09:00 AM [place] CBC AND DIFF (AUTO) Specimen Type: BLOOD No comment entered. Ordering Provider: LEV LIZAMA Report Released Date/Time: Mar 06, 2023 09:49 AM Reporting Lab: [address] [address] Performing Lab: [address] [address] WBC 9.47 10*3/uL 4.50-11.00 RBC 5.00 10*6/uL [...] and tobacco- related health factors from the [place] facility where the Encounter took place. Current Smoking Status This section includes the most current smoking, or tobacco-related health factor, from the [place] facility where the Encounter took place. Date/Time Current Smoking Status Comment Facil ity Feb 18, 2023 02:31 PM [place]-TOBACCO FORMER USER [facility] Tobacco Use History This section includes a history of the smoking, or tobacco-related health factors, that were collected on or before the date of the Encounter. The data comes from the [place] facility where the Encounter took place. Date/Time Smoking Status/Tobacco Use Comment F acility Feb 18, 2023 02:31 PM VA-TOBACCO QUIT [address]RS OR [address] [facility] Dec 31, 2021 01:00 PM VA-TOBACCO FORMER USER [place] [facility] [facility] Dec 31, 2021 01:00 PM [place]-TOBACCO QUIT 15 YRS OR MORE [facility] Advance Directives: All historical and current Section Date Range: From patient's date of to the date document was created. This section includes ALL of a patient's completed or amended [place] Advance and Rescinded Directives. The entries below indicate that a directive exists for the patient, but an actual copy is not included with this document. The data comes from all [place] facilities. Date Advance Directives Provider Source July 02, 2022 ADVANCE DIRECTIVE SANDRA BROOKS [facility] Aug 07, 2021 ADVANCE DIRECTIVE [place]HA SAHA [place] [facility] Nov 28, 2020 ADVANCE DIRECTIVE GOLDIE DUTTA [facility] Encounter Notes: All associated encounter notes This section contains the clinical notes associated to the Encounter. Date/Time Encounter Note(s) Provider Source Aug 18, 2023 06:51 AM PRIMARY CARE SECUR E MESSAGING: LOCAL TITLE: PRIMARY CARE SECURE MESSAGING STANDARD TITLE: PRIMARY CARE SECURE MESSAGING DATE OF NOTE: AUG 18, 2023@06:51 ENTRY DATE: AUG 18, 2023@07:51:46 AUTHOR: AMA GRIJALVA COSIGNER: URGENCY: STATUS: COMPLETED ------Original Message Sent: 08/18/2023 07:05 AM ET From: ELIZABETH SMILEY To: ANISHO _PRIMARY CARE_[facility] Subject: Medication:Atorvastat in refill I have no refills for this medication. /bienvenido/ Ama Grijalva RN Registered Nurse Signed: 08/18/2023 07:51 AMA GRIJALVA CNTRL [facility]
--- OUTSIDE RECORDS SUMMARY | 2024-02-17 09:33 | XMS_ITS ---
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 Address [address] [place] [address] Care Team Providers Care Edi Programmer Name Role Phone LEV OCONNELL Primary Care [...] EMPLO [facility] Jan 26, 2020 [id number] ELIZABETH SMILEY JR PATIENT [employer] PREFERRED PROVIDER ORGANIZAT ION (PPO) DW[place]NE AL EMPLO [facility] Feb 25, 2016 [id number] ELIZABETH SMILEY JR PATIENT [employer] PREFERRED PROVIDER ORGANIZAT ION (PPO) [facility] [facility] Feb 25, 2016 [id number] [phone] ELIZABETH SMILEY JR PATIENT [employer] PREFERRED PROVIDER ORGANIZAT ION (PPO) [facility] Feb 25, 2016 [id number] ELIZABTEH SMILEY PATIENT [employer] PREFERRED PROVIDER ORGANIZAT ION (PPO) DW[place] AL MIO MIMI [facility] Feb 24, 2016 [id number] ELIZABETH SMILEY PATIENT [employer] PHARMACY MANAGEMENT PRESCRIPT ION [place] EMPLO MIMI Jan 26, 2020 [id number] ELIZABETH SMILEY JR PATIENT [employer] PHARMACY MANAGEMENT PRESCRIPT ION [facility] Feb 25, 2016 [id number] ELIZABETH SMILEY PATIENT [employer] PHARMACY MANAGEMENT PRESCRIPT ION [place] EMPLO MIMI Feb 25, 2016 [id number] ELIZABETH SMILEY PATIENT AET[employer] RX PRESCRIPT ION [place] EM[place]O [facility] Feb 25, 2016 [id number] ELIZABETH SMILEY PATIENT AETNA RX PRESCRIPT ION [facility] Feb 25, 2016 [id number] ELIZABETH SMILEY JR PATIENT [employer] POINT OF SERVICE [employer] Mar 20, 2002 [id number] ELIZABETH SMILEY PATIENT [employer]* POINT OF SERVICE Mar 20, 2002 [id number] ELIZABETH SMILEY PATIENT Selected Encounter This section includes the information on record at [place] for the Encounter. Date/Time Encounter Type Encounter Description Reason Pro vider Source Apr 18, 2023 12:00 AM Outpatient Encounter EVENT (HISTORICAL) IHE Encounter Template Text not used by GA [...] 2023 08:00 AM [facility] May 30, 2023 08:15 AM AM[facility]ULATORY - MEDICINE [facility] Jun 04, 2023 04:00 PM AMBULATORY - MEDICINE [place] [place] [facility] June 24, 2023 03:00 PM AMBULATORY - NONE [place] [facility] [place] [facility] Aug 08, 2023 03:00 PM AMBULATORY - MEDICINE [place] [facility] [place] [place] [facility] Aug 13, 2023 03:10 PM AMBULATORY - MEDICINE [place] [facility] [place] [place] [facility] Sep 04, 2023 01:30 PM AMBULATORY - MEDICINE [facility] Sep 29, 2023 02:30 PM AMBULATORY - NONE [place] [facility] [place] [facility] Social History: Smoking Status (Most [...] 18, 2023 02:31 PM [place] Tobacco Use History This section includes a history of the smoking, or tobacco-related health factors, that were collected on or before the date of the Encounter. The data comes from the [place] facility where the Encounter took place. Date/Time Smoking Status/Tobacco Use Comment F acility Feb 18, 2023 02:31 PM VA-TOBACCO QUIT 15 YRS OR MORE [place] [facility] [place] [facility] Dec 31, 2021 01:00 PM VA-TOBACCO FORMER USER [place] [facility] [place] [facility] Dec 31, 2021 01:00 PM [place]-TOBACCO QUIT 15 YRS OR [facility] Advance Directives: All historical and [...] Aug 07, 2021 ADVANCE DIRECTIVE RADHA SAHA IELEWIS Nov 28, 2020 ADVANCE DIRECTIVE GOLDIE DUTTA [place]
--- OUTSIDE RECORDS SUMMARY | 2024-02-17 09:33 | XMS_ITS ---
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 Organization [place] Address [address] [place] [address] Care Team Providers Care Chain Carrier Name Role Phone LEV OCONNELL Primary Care [...] (PPO) FED EMPLO YEES Jan 26, 2020 [id number] ELIZABETH SMILEY JR PATIENT [employer] PREFERRED PROVIDER ORGANIZAT ION (PPO) DWAYNE AL EMPL [facility] Feb 25, 2016 [id number] ELIZABETH SMILEY JR PATIENT [employer] PREFERRED PROVIDER ORGANIZAT ION (PPO) DW[place]NE AL EMPL [facility] Feb 25, 2016 [id number] ELIZABETH SMILEY PATIENT [employer] PREFERRED PROVIDER ORGANIZAT ION (PPO) DWAYNE AL EMPLO YE Feb 25, 2016 [id number] ELIZABETH SMILEY JR PATIENT [employer] PREFERRED PROVIDER ORGANIZAT ION (PPO) DWAYNE SILVA Feb 24, 2016 [id number] ELIZABETH SMILEY PATIENT [employer] PHARMACY MANAGEMENT PRESCRIPT ION DWAYNE SILVA Jan 26, 2020 [id number] ELIZABETH SMILEY JR PATIENT [employer] PHARMACY MANAGEMENT PRESCRIPT ION DAIANA Feb 25, 2016 [id number] ELIZABETH SMILEY PATIENT [employer] PHARMACY MANAGEMENT PRESCRIPT ION DWAYNE PIERCE Feb 25, 2016 [id number] ELIZABETH SMILEY PATIENT [employer]ET[employer] RX PRESCRIPT ION DWAYNE SILVA Feb 25, 2016 [id number] ELIZABETH SMILEY PATIENT AETNA RX PRESCRIPT ION [facility] Feb 25, 2016 [id number] ELIZABETH SMILEY JR PATIENT [employer] POINT OF SERVICE [employer] Mar 20, 2002 [id number] ELIZABETH MSILEY PATIENT [employer]* POINT OF SERVICE Mar 20, 2002 [id number] ELIZABETH SMILEY PATIENT Selected Encounter This section includes the information on record at [place] for the Encounter. Date/Time Encounter Type Encounter Description Reason Pro vider Source Aug 13, 2023 12:00 PM Outpatient Encounter COMMUNITY CARE CONSULT IHE Encounter [...] 2023 01:30 PM AMBULATORY - MEDICINE [facility] Sep 29, 2023 02:30 PM AMBULATORY - NONE [facility] [place] [facility] Nov 26, 2023 10:00 AM AMBULATORY - MEDICINE [place] [facility] [place] [facility] Nov 28, 2023 07:35 PM AMBULATORY - MEDICINE [place] [facility] [place] [facility] Dec 29, 2023 01:30 PM AMBULATORY - MEDICINE [place] [facility] [place] [facility] Jan 13, 2024 01:00 PM AMBULATORY - MEDICINE [place] [facility] [place] [facility] Lab Results: +/- 30 [...] Range Comment Aug 29, 2023 09:29 AM [place] PROTEIN/CREATININE RATIO PANEL, URINE S pecimen Type: URINE No comment entered. Ordering Provider: LEV LIZAMA Report Released Date/Time: Aug 29, 2023 09:24 AM Reporting Lab: [facility] [address] [address] Performing Lab: [place] [facility] [address] [address] CREATININE URINE 64.72 mg/dL UR PROTEIN/CREATI NINE RATIO 1.6 <0.2 PROTEIN, URINE 102.7 mg/dL H 0.0-20.0 Aug 29, 2023 09:29 AM [place] ELECTROLYTE PANEL Specimen Type: SERUM No comment entered. Ordering Provider: LEV LIZAMA Report Released Date/Time: Aug 29, 2023 09:24 AM Reporting Lab: [place] [address] [address] Performing Lab: [facility] [address] SODIUM 141 mmol/L 135-145 POTASSIUM 4.9 mmol/L 3.5-5.0 CHLORIDE 109 mmol/L 100-110 CO2 23 meq/L -30 Aug 29, 2023 09:00 AM [place] THYROID T4 FREE(FT4) (WROX) Specimen Ty pe: SERUM No comment entered. Ordering Provider: LEV LIZAMA Report Released Date/Time: Mar 06, 2023 09:49 AM Reporting Lab: [facility]TR[facility] [place] [facility] [address] [facility] [address] Performing Lab: [place] [facility] [facility] [address] [facility] [address] THYROID T4 FREE(FT4) (WROX) 1.31 ng/dL 0.6-1.6 Aug 29, 2023 09:00 AM [place] PSA Specimen Type: SERUM No comment entered. Ordering Provider: LEV LIZAMA Report Released Date/Time: Mar 06, 2023 09:35 AM Reporting Lab: [facility]ITALTRN [facility] [address] [facility] [address] Performing Lab: [facility] TR[facility] [place] [facility] [address] [facility] [address] PSA < 0.10 ng/mL 0.00-4.00 Aug 29, 2023 09:00 AM [place] VITAMIN D (25-[place]) Specimen Type: SERUM No comment entered. Ordering Provider: LEV LIZAMA Report Released Date/Time: Mar 06, 2023 09:49 AM Reporting Lab: [facility]ITALTRN [place] [facility] [address] [facility] [address] Performing Lab: [facility]OSPITALTRN [facility] [address] [facility] [address] VITAMIN D (25-[place]) 32 ng/mL 20-50 Aug 29, 2023 09:00 AM [place] VITAMIN B12 Specimen Type: SERUM No comment entered. Ordering Provider: LEV LIZAMA Report Released Date/Time: Mar 06, 2023 09:49 AM Reporting Lab: [facility]ITALTRN [place] [facility] [address] [facility] [address] Performing Lab: [facility]ITALTRN [facility]ENTERUSETS [address] [address] VITAMIN B12 407 pg/mL 200-900 Aug 29, 2023 09:00 AM [place] HEMOGLOBIN A1C PANEL Specimen Type: BLOOD Comment: [...] Mar 06, 2023 09:49 AM Reporting Lab: [facility] [address] [address] Performing Lab: [address] [address] HEMOGLOBIN A1C 7.1 H 4.0-5.6 Aug 29, 2023 09:00 AM [place] MICROALBUMIN CREATININE RATIO PANEL Spe cimen Type: URINE No comment entered. Ordering Provider: LEV LIZAMA Report Released Date/Time: Mar 06, 2023 09:49 AM Reporting Lab: [facility]ENTERUSE[address] [address] Performing Lab: [facility]ENTERUSE[address] [address] MICROALBUMIN/C REATININE RATIO 1278.8 mg/g H 0-29.9 MICROALBUMIN,Q UANTITATIVE 82.2 mg/dL RR UNAVAIL CREATININE URINE 64.28 mg/dL Aug 29, 2023 09:00 AM [place] TSH Specimen Type: SERUM No comment entered. Ordering Provider: LEV LIZAMA Report Released Date/Time: Mar 06, 2023 09:49 AM Reporting Lab: [facility]ITALRH[facility] SYSTEMN [facility]ENTERUSE[address] [address] Performing Lab: [facility] [address] [address] TSH 1.25 u[IU]/mL 0.35-5.00 Aug 29, 2023 09:00 AM [place] LIVER FUNCTION Specimen Type: SERUM No comment entered. Ordering Provider: LEV LIZAMA Report Released Date/Time: Mar 06, 2023 09:49 AM Reporting Lab: [facility] [address] [facility] [address] Performing Lab: [address] [address] PROTEIN,TOTAL 6.3 g/dL 6.0-8.3 ALBUMIN 3.7 g/dL 3.5-5.0 ALKALINE PHOSPHATASE 49 U/L 40-150 AST 13 U/L 5-34 ALT 32 U/L BILIRUBIN, TOTAL 0.3 mg/dL 0.2-1.2 Aug 29, 2023 09:00 AM [place] BASIC METABOLIC PANEL (fasting) Specime n Type: SERUM No comment entered. Ordering Provider: LEV LIZAMA Report Released Date/Time: Mar 06, 2023 09:49 AM Reporting Lab: [address] [address] Performing Lab: [address] [address] UREA NITROGEN 54 mg/dL H 7-25 GLUCOSE 178 mg/dL H 65-100 SODIUM 141 mmol/L 135-145 POTASSIUM 4.9 mmol/L 3.5-5.0 CHLORIDE 108 mmol/L 100-110 CO2 25 meq/L 20-30 CREATININE, Serum 2.48 mg/dL H 0.50-1.40 eGFR(CKD-EPI 2020) 28 mL/min L >60 Aug 29, 2023 09:00 AM [place] LIPID PANEL FASTING Specimen Type: SERUM No comment entered. Ordering Provider: LEV LIZAMA Report Released Date/Time: Mar 06, 2023 09:49 AM Reporting Lab: [address] [address] Performing Lab: [address] [address] CHOLESTEROL 243 mg/dL H TRIGLYCERIDE 139 mg/dL 0-150 LDL calculated 174 mg/dL H 0-129 CHOL/HDL 5.9 HDL CHOLESTEROL 41 mg/dL 40-60 Aug 29, 2023 09:00 AM [place] IRON & TIBC PANEL Specimen Type: SERUM No comment entered. Ordering Provider: LEV LIZAMA Report Released Date/Time: Mar 06, 2023 09:49 AM Reporting Lab: [address] [address] Performing Lab: [address] [address] TIBC 298 ug/dL 204-475 IRON 76 ug/dL 40-160 Transferrin Saturation 25.5 20.0-50.0 Aug 29, 2023 09:00 AM [place] CBC AND DIFF (AUTO) Specimen Type: BLOOD No comment entered. Ordering Provider: LEV LIZAMA Report Released Date/Time: Mar 06, 2023 09:49 AM Reporting Lab: [address] [address] Performing Lab: [address] [address] WBC 9.47 10*3/uL 4.50-11.00 RBC 5.00 10*6/uL [...] PM CO-TOBACCO QUIT 15 YRS OR MORE [facility] PM [place]-TOBACCO QUIT 15 YRS OR MORE [facility] Dec 31, 2021 01:00 PM [place]-TOBACCO FORMER USER [place] [facility] [facility] Dec 31, 2021 01:00 PM [place]-TOBACCO QUIT 15 YRS OR MORE [facility] [...] Aug 07, 2021 ADVANCE DIRECTIVE RADHA SAHA [facility] Nov 28, 2020 ADVANCE DIRECTIVE GOLDIE DUTTA [facility] Encounter Notes: All associated encounter notes This section contains the clinical notes associated to the Encounter. Date/Time Encounter Note(s) Provider Source Aug 13, 2023 12:00 PM NONVA CONSULT: LOCAL TITLE: COMMUNITY CARE-CONSULT RESULT NOTE STANDARD TITLE: NONVA CONSULT DATE OF NOTE: AUG 13, 2023@12:00 ENTRY DATE: AUG 29, 2023@12:16:12 AUTHOR: ALFONSO EID COSIGNER: URGENCY: STATUS: COMPLETED VistA Imaging - Scanned Document SCANNED DOCUMENT SIGNATURE NOT REQUIRED Electronically Filed: 08/29/2023 by: ALFONSO CUEVA CN[facility]L [facility]
--- OUTSIDE RECORDS SUMMARY | 2024-02-17 09:33 | XMS_ITS | Encounter Summary ---
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 [place] [facility] Address [address] [place] [address] Care Team Providers Care Ecological Risk Assessor Name Role Phone LEV OCONNELL Primary Care [...] PREFERRED PROVIDER ORGANIZAT ION (PPO) FED EMPLO [facility] Jan 26, 2020 [id number] ELIZABETH SMILEY JR PATIENT [employer] PREFERRED PROVIDER ORGANIZAT ION (PPO) DWAYNE AL EMPLO [facility] Feb 25, 2016 [id number] ELIZABETH SMILEY JR PATIENT A[employer] PREFERRED PROVIDER ORGANIZAT ION (PPO) DWAYNE AL EMPL [facility] Feb 25, 2016 [id number] ELIZABETH SMILEY JR PATIENT A[employer] PREFERRED PROVIDER ORGANIZAT ION (PPO) DWAYNE AL EMPL [facility] Feb 25, 2016 [id number] ELIZABETH SMILEY PATIENT AET[employer] PREFERRED PROVIDER ORGANIZAT ION (PPO) DWAYNE AL MIO MIMI [facility] Feb 24, 2016 [id number] ELIZABETH SMILEY PATIENT [employer] PHARMACY MANAGEMENT PRESCRIPT ION DWAYNE AL EMPLO MIMI Jan 26, 2020 [id number] ELIZABETH SMILEY JR PATIENT [employer] PHARMACY MANAGEMENT PRESCRIPT ION DAIANA Feb 25, 2016 [id number] ELIZABETH SMILEY PATIENT [employer] PHARMACY MANAGEMENT PRESCRIPT ION DWAYNE AL EMPLO MIMI Feb 25, 2016 [id number] ELIZABETH SMILEY PATIENT AET[employer] RX PRESCRIPT ION DWAYNE AL EMPLO MIMI Feb 25, 2016 [id number] ELIZABETH SMILEY PATIENT AETNA RX [facility]CRIPT [facility] Feb 25, 2016 [id number] ELIZABETH SMILEY JR PATIENT [employer] POINT OF SERVICE [employer] Mar 20, 2002 [id number] ELIZABETH SMILEY PATIENT [employer]IG[employer]* POINT OF SERVICE Mar 20, 2002 [id number] ELIZABETH SMILEY PATIENT Selected Encounter This section includes the information on record at [place] for the Encounter. Date/Time Encounter Type Encounter Description Reason Pro vider Source Sep 04, 2023 01:30 PM Outpatient Encounter PRIMARY CARE/MEDICINE IHE Encounter Template Text not used by [place] Plan of Treatment: Future Appointments (+ 6 months) and Future Tests (+/- 45 days) The Plan of Treatment section includes future care activities for the patient from all [place] treatmentfacilities. This section includes future appointments and future orders which are active, pending or scheduled. Future Appointments This section includes appointments that were scheduled to occur 6 months from the date of the Encounter, up to a maximum of 20 appointments. The data comes from all [place] treatment facilities. Appointment Date/Time Appointment Type Appointme nt Facility Name Sep 29, 2023 02:30 PM AMBULATORY - NONE [place] [facility] [facility] Nov 26, 2023 10:00 AM AMBULATORY - MEDICINE [place] [facility] [place] [facility] Nov 28, 2023 07:35 PM AMBULATORY - MEDICINE [place] [facility] [place] [place] [facility] Dec 29, 2023 01:30 PM AMBULATORY - MEDICINE [place] [place] [facility] Jan 13, 2024 01:00 PM [facility]BULATORY - [facility]ICINE [place] [facility] Lab Results: +/- 30 days of the encounter This section includes the Chemistry and Hematology Lab Results on record with [place] for the patient. Radiology Reports and Pathology Reports are provided separately, in subsequent sections. Lab Results This section contains the Chemistry/Hematology Results that were resulted 30 days before or 30 daysafter the date of the Encounter. Date/Time Source Result Type Result - Unit Interpretation Reference Range Comment Aug 29, 2023 09:29 AM [place] PROTEIN/CREATININE RATIO PANEL, URINE S pecimen Type: URINE No comment entered. Ordering Provider: LEV LIZAMA Report Released Date/Time: Aug 29, 2023 09:24 AM Reporting Lab: [facility] [address] [address] Performing Lab: [facility] [address] [address] CREATININE URINE 64.72 mg/dL UR PROTEIN/CREATI NINE RATIO 1.6 <0.2 PROTEIN, URINE 102.7 mg/dL H 0.0-20.0 Aug 29, 2023 09:29 AM [place] ELECTROLYTE PANEL Specimen Type: SERUM No comment entered. Ordering Provider: LEV LIZAMA Report Released Date/Time: Aug 29, 2023 09:24 AM Reporting Lab: [facility] [address] Performing Lab: [facility] [address] [address] SODIUM 141 mmol/L 135-145 POTASSIUM 4.9 mmol/L 3.5-5.0 CHLORIDE 109 mmol/L 100-110 CO2 23 meq/L -30 Aug 29, 2023 09:00 AM [place] THYROID T4 FREE(FT4) (WROX) Specimen Ty pe: SERUM No comment entered. Ordering Provider: LEV LIZAMA Report Released Date/Time: Mar 06, 2023 09:49 AM Reporting Lab: [facility] [address] [facility] [address] Performing Lab: [facility]TRN [facility] [address] [facility] [address] THYROID T4 FREE(FT4) (WROX) 1.31 ng/dL 0.6-1.6 Aug 29, 2023 09:00 AM [place] PSA Specimen Type: SERUM No comment entered. Ordering Provider: LEV LIZAMA Report Released Date/Time: Mar 06, 2023 09:35 AM Reporting Lab: [facility] [address] [facility] [address] Performing Lab: [facility] [address] PSA < 0.10 ng/mL 0.00-4.00 Aug 29, 2023 09:00 AM [place] VITAMIN D (25-[place]) Specimen Type: SERUM No comment entered. Ordering Provider: LEV LIZAMA Report Released Date/Time: Mar 06, 2023 09:49 AM Reporting Lab: [facility] [address] [facility] [address] Performing Lab: [facility]N [facility]USE[facility] [address] [facility] [address] VITAMIN D (25-[place]) 32 ng/mL 20-50 Aug 29, 2023 09:00 AM [place] VITAMIN B12 Specimen Type: SERUM No comment entered. Ordering Provider: LEV LIZAMA Report Released Date/Time: Mar 06, 2023 09:49 AM Reporting Lab: [facility]TRN [facility] [address] [facility] [address] Performing Lab: [facility]N [facility]ITAL[facility] [address] VITAMIN B12 407 pg/mL 200-900 Aug 29, 2023 09:00 AM [place] HEMOGLOBIN A1C PANEL Specimen Type: BLOOD Comment: [...] Mar 06, 2023 09:49 AM Reporting Lab: [facility] [address] [facility] [address] Performing Lab: [address] [address] HEMOGLOBIN A1C 7.1 H 4.0-5.6 Aug 29, 2023 09:00 AM [place] MICROALBUMIN CREATININE RATIO PANEL Spe cimen Type: URINE No comment entered. Ordering Provider: LEV LIZAMA Report Released Date/Time: Mar 06, 2023 09:49 AM Reporting Lab: [facility] [address] [facility] [address] Performing Lab: [facility] [address] [facility] [address] MICROALBUMIN/C REATININE RATIO 1278.8 mg/g H 0-29.9 MICROALBUMIN,Q UANTITATIVE 82.2 mg/dL RR UNAVAIL CREATININE URINE 64.28 mg/dL Aug 29, 2023 09:00 AM [place] TSH Specimen Type: SERUM No comment entered. Ordering Provider: LEV LIZAMA Report Released Date/Time: Mar 06, 2023 09:49 AM Reporting Lab: [address] [address] Performing Lab: [address] [address] TSH 1.25 u[IU]/mL 0.35-5.00 Aug 29, 2023 09:00 AM [place] IRON & TIBC PANEL Specimen Type: SERUM No comment entered. Ordering Provider: LEV LIZAMA Report Released Date/Time: Mar 06, 2023 09:49 AM Reporting Lab: [address] [address] Performing Lab: [address] [address] TIBC 298 ug/dL 204-475 IRON 76 ug/dL 40-160 Transferrin Saturation 25.5 20.0-50.0 Aug 29, 2023 09:00 AM [place] BASIC METABOLIC PANEL (fasting) Specime n Type: SERUM No comment entered. Ordering Provider: LEV LIZAMA Report Released Date/Time: Mar 06, 2023 09:49 AM Reporting Lab: [address] [address] Performing Lab: [address] [address] UREA NITROGEN 54 mg/dL H 7-25 GLUCOSE 178 mg/dL H 65-100 SODIUM 141 mmol/L 135-145 POTASSIUM 4.9 mmol/L 3.5-5.0 CHLORIDE 108 mmol/L 100-110 CO2 25 meq/L 20-30 CREATININE, Serum 2.48 mg/dL H 0.50-1.40 eGFR(CKD-EPI 2020) 28 mL/min L >60 Aug 29, 2023 09:00 AM [place] LIPID PANEL FASTING Specimen Type: SERUM No comment entered. Ordering Provider: LEV LIZAMA Report Released Date/Time: Mar 06, 2023 09:49 AM Reporting Lab: [address] [address] Performing Lab: [address] [address] CHOLESTEROL 243 mg/dL H TRIGLYCERIDE 139 mg/dL 0-150 LDL calculated 174 mg/dL H 0-129 CHOL/HDL 5.9 HDL CHOLESTEROL 41 mg/dL 40-60 Aug 29, 2023 09:00 AM [place] LIVER FUNCTION Specimen Type: SERUM No comment entered. Ordering Provider: LEV LIZAMA Report Released Date/Time: Mar 06, 2023 09:49 AM Reporting Lab: [address] [address] Performing Lab: [address] [address] PROTEIN,TOTAL 6.3 g/dL 6.0-8.3 ALBUMIN 3.7 g/dL 3.5-5.0 ALKALINE PHOSPHATASE 49 U/L 40-150 AST 13 U/L 5-34 ALT 32 U/L BILIRUBIN, TOTAL 0.3 mg/dL 0.2-1.2 Aug 29, 2023 09:00 AM [place] CBC AND DIFF (AUTO) Specimen Type: BLOOD No comment entered. Ordering Provider: LEV LIZAMA Report Released Date/Time: Mar 06, 2023 09:49 AM Reporting Lab: [address] [address] Performing Lab: [address] [address] WBC 9.47 10*3/uL 4.50-11.00 RBC 5.00 10*6/uL [...] and tobacco- related health factors from the [place] facility where the Encounter took place. Current Smoking Status This section includes the most current smoking, or tobacco-related health factor, from the [place] facility where the Encounter took place. Date/Time Current Smoking Status Comment Facil ity Feb 18, 2023 02:31 PM [place]-TOBACCO FORMER USER [facility] Tobacco Use History This section includes a history of the smoking, or tobacco-related health factors, that were collected on or before the date of the Encounter. The data comes from the [place] facility where the Encounter took place. Date/Time Smoking Status/Tobacco Use Comment F acility Feb 18, 2023 02:31 PM [place]-TOBACCO QUIT 15 YRS OR MORE [facility] Dec 31, 2021 01:00 PM [place]-TOBACCO FORMER USER [facility] Dec 31, 2021 01:00 PM [place]-TOBACCO QUIT 15 YRS OR MORE [facility] Advance Directives: All historical and current Section Date Range: From patient's date of to the date document was created. This section includes ALL of a patient's completed or amended [place] Advance and Rescinded Directives. The entries below indicate that a directive exists for the patient, but an actual copy is not included with this document. The data comes from all [place] facilities. Date Advance Directives Provider Source July 02, 2022 ADVANCE DIRECTIVE SANDRA BROOKS [facility] Aug 07, 2021 ADVANCE DIRECTIVE RADHA SAHA [facility] Nov 28, 2020 ADVANCE DIRECTIVE GOLDIE DUTTA [facility] Encounter Notes: All associated encounter notes This section contains the clinical notes associated to the Encounter. Date/Time Encounter Note(s) Provider Source Sep 04, 2023 01:49 PM PREVENTIVE MEDICIN E NURSING NOTE: LOCAL TITLE: CLINICAL REMINDERS/NURSING STANDARD TITLE: PREVENTIVE MEDICINE NURSING NOTE DATE OF NOTE: SEP 04, 2023@13:49 ENTRY DATE: SEP 04, 2023@13:49:59 AUTHOR: MAXIMO HOFFMAN COSIGNER: URGENCY: STATUS: COMPLETED RHS Screen: RHS Screen Environmental Check Upon inquiry, the individual reports that the environment is safe to proceed. Informed Consent to Screen and Document The individual consents to proceed with screening. The individual consents to documentation of responses. PRIMARY SCREEN: In the past 12 months, how often did a current or former intimate partner (e.g., boyfriend, girlfriend, , , sexual partner): 1. Scream or curse at you Never 2. Insult or talk down to you Never 3. Threaten you with harm Never 4. Physically hurt you Never 5. Force or pressure you to have sexual contact against your will, or when you were unable to say no Never ?? The HITS tool (items 1-4 above) is [place] copyright protected by Jaziel Gillis MD, and the user has full rights to use it throughout the [place] system. PRIMARY SCREEN RESULT: The Primary Screen is NEGATIVE. The individual answered never to all forms of IPV above (i.e., answered never to all 5 items) The individual accepts education and/or resources: No EDUCATION: The individual indicated readiness to learn. Education offered during this session as noted above. The individual indicated understanding by asking relevant questions and making appropriate comments. No barriers to learning were observed or identified. 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 The [place]/caregiver was informed that we will continue to ask this screening question every 5 years. They can contact their provider/healthcare team if they have concerns about exposures and would like to be screened sooner. Printed information was offered and provided if desired. Advance Directive Screen MH AD: Patient has an Advance Directive on file at this [facility]. No updates are needed at this time. The patient received education about Advance Directives and written notification of his/her rights. COVID VACCINE - WILL SCHEDULE WHEN READY /[email or web address]/ MAXIMO HOFFMAN LPN LPN Signed: 09/04/2023 13:50 MAXIMO HOFFMAN
--- OUTSIDE RECORDS SUMMARY | 2024-02-17 09:34 | XMS_ITS | Encounter Summary ---
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 ([place]) Organization [facility] Address [address] [place] [address] Care Team Providers Care Table Games Floor Supervisor Name Role Phone LEV OCONNELL Primary [...] (PPO) FED EMPLO YE Jan 26, 2020 [id number] [phone] ELIZABETH SMILEY JR PATIENT [employer] PREFERRED PROVIDER ORGANIZAT ION (PPO) DW[place] EMPL [facility] Feb 25, 2016 [id number] [phone] ELIZABETH SMILEY JR PATIENT [employer] PREFERRED PROVIDER ORGANIZAT ION (PPO) DWAYNE AL EMPL [facility] Feb 25, 2016 [id number] [phone] ELIZABETH SMILEY PATIENT [employer] PREFERRED PROVIDER ORGANIZAT ION (PPO) DWAYNE AL EMPLO MIMI Feb 25, 2016 [id number] ELIZABETH SMILEY JR PATIENT [employer] PREFERRED PROVIDER ORGANIZAT ION (PPO) DWAYNE AL MIO MIMI COO[place] Feb 24, 2016 [id number] ELIZABETH SMILEY PATIENT [employer] PHARMACY MANAGEMENT PRESCRIPT ION DW[place]NE AL EMPLO MIMI COO[place] Jan 26, 2020 [id number] ELIZABETH SMILEY JR PATIENT [employer] PHARMACY MANAGEMENT PRESCRIPT ION KRA[facility] Feb 25, 2016 [id number] ELIZABETH SMILEY PATIENT [employer] PHARMACY MANAGEMENT PRESCRIPT ION [place] EMPLO MIMI Feb 25, 2016 [id number] ELIZABETH SMILEY PATIENT AET[employer] RX PRESCRIPT ION [place] EMPLO MIMI [place]OO[place] Feb 25, 2016 [id number] ELIZABETH SMILEY PATIENT [employer] RX PRESCRIPT ION FE[facility] Feb 25, 2016 [id number] ELIZABETH SMILEY JR PATIENT [employer] POINT OF SERVICE [employer] Mar 20, 2002 [id number] ELIZABETH SMILEY PATIENT [employer]* POINT OF SERVICE Mar 20, 2002 [id number] ELIZABETH SMILEY PATIENT Selected Encounter This section includes the information on record at [place] for the Encounter. Date/Time Encounter Type Encounter Description Reason Provider Source Oct 31, 2023 10:12 AM IMMUNIZATION ADMIN PRIMARY CARE/MEDICINE ICD-10-CM Z23 Encounter for immunization OSMAR LI [facility] Encounter Template Text not used by [place] Assessments - Encounter Diagnoses This section includes the primary and secondary diagnoses documented for the Encounter. Date/Time Primary/Secondary Diagnosis Diagnosis Name Provider Source Nov 14, 2023 10:59 AM PRIMARY Encounter for immunization OSMAR LI [place] [facility] [place] [facility] Plan of Treatment: Future Appointments (+ [...] Date/Time Appointment Type Appointme nt Facility Name Nov 26, 2023 10:00 AM AMBULATORY - MEDICINE [facility] Nov 28, 2023 07:35 PM AMBULATORY - MEDICINE [facility] Dec 29, 2023 01:30 PM AMBULATORY - MEDICINE [facility] Jan 13, 2024 01:00 PM AMBULATORY [facility] Mar 15, 2024 02:00 PM [facility] [place] Immunizations: All administered on the encounter date This section contains immunizations associated to the Encounter. Immunization Series Date Issued Reaction Comments INFLUENZA, SPLIT VIRUS, TRIVALENT, PF Oct 30 024 Social History: Smoking Status (Most current) and [...] PM VA-TOBACCO QUIT 15 YRS OR MORE [facility] Tobacco Use History This section includes a history of the smoking, or tobacco-related health factors, that were collected on or before the date of the Encounter. The data comes from the [place] facility where the Encounter took place. Date/Time Smoking Status/Tobacco Use Comment F acility Feb 18, 2023 02:31 PM [facility] Dec 31, 2021 01:00 PM [facility] Dec 31, 2021 01:00 PM VA-TOBACCO QUIT 15 YRS OR MORE [facility] Advance Directives: All historical and [...] July 02, 2022 ADVANCE DIRECTIVE SANDRA BROOKS [place] Aug 07, 2021 ADVANCE DIRECTIVE RADHA SAHA [place] Nov 28, 2020 ADVANCE DIRECTIVE GOLDIE DUTTA [facility] [place] Encounter Notes: All associated encounter notes This section contains the clinical notes associated to the Encounter. Date/Time Encounter Note(s) Provider Source Oct 31, 2023 10:12 AM PREVENTIVE MEDICIN E NURSING NOTE: LOCAL TITLE: CLINICAL REMINDERS/NURSING STANDARD TITLE: PREVENTIVE MEDICINE NURSING NOTE DATE OF NOTE: OCT 31, 2023@10:12 ENTRY DATE: OCT 31, 2023@10:12:47 AUTHOR: OSMAR LI EXP COSIGNER: URGENCY: STATUS: COMPLETED Influenza Immunization: Influenza, Trivalent, Preservative Free (Fluarix-Syringe) Administered: INFLUENZA, SPLIT VIRUS, TRIVALENT, PF Date Administered: Oct 31, 2023 10:12 Cell Tester: [employer] Lot: [id number] Exp Date: Aug 16, 2024 [facility]: [id number] Admin Route/Site: INTRAMUSCULAR/LEFT DELTOID Dosage: 0.5mL Vaccine Information Statement(s): INFLUENZA(FLU) VACC(INACTIVATED OR RECOMBINANT)VIS Sep 22, 2020 ([place]UG[place]) Order By: Policy Administered By: Yaima Reza The Influenza Vaccine Information Statement (VIS) was reviewed with the patient/caregiver which lists the benefits and risks of the vaccine and the risks of not receiving the Influenza vaccine. The patient/caregiver denied any prior severe reaction to this vaccine or its components or a severe allergic reaction, such as anaphylaxis, to any vaccine or any injectable therapy. The patient/caregiver gave verbal consent to receive the vaccine. 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
--- OUTSIDE RECORDS SUMMARY | 2024-02-17 09:34 | XMS_ITS | Encounter Summary ---
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 Address [address] [place] [address] Care Team Providers Care Resident In Diagnostic Radiology Name Role Phone LEV OCONNELL Primary Care [...] PREFERRED PROVIDER ORGANIZAT ION (PPO) FED EMPLO [facility] Jan 26, 2020 [id number] ELIZABETH SMILEY JR PATIENT [employer] PREFERRED PROVIDER ORGANIZAT ION (PPO) DWAYNE AL EMPLO [facility] Feb 25, 2016 [id number] [phone] ELIZABETH SMILEY JR PATIENT AET[employer] PREFERRED PROVIDER ORGANIZAT ION (PPO) [place] AL EMPL [facility] Feb 25, 2016 [id number] [phone] ELIZABETH SMILEY JR PATIENT AET[employer] PREFERRED PROVIDER ORGANIZAT ION (PPO) DW[place] AL EMPL [facility] Feb 25, 2016 [id number] [phone] ELIZABETH SMILEY PATIENT [employer] PREFERRED PROVIDER ORGANIZAT ION (PPO) DWAYNE [place] MIMI COO[place] Feb 24, 2016 [id number] ELIZABETH SMILEY PATIENT [employer] PHARMACY MANAGEMENT PRESCRIPT ION [place] EMPLO MIMI Jan 26, 2020 [id number] ELIZABETH SMILEY JR PATIENT [employer] PHARMACY MANAGEMENT PRESCRIPT ION DIAANA Feb 25, 2016 [id number] ELIZABETH SMILEY PATIENT [employer] PHARMACY MANAGEMENT PRESCRIPT ION [place] EMPLO MIMI Feb 25, 2016 [id number] ELIZABETH SMILEY PATIENT [employer] RX PRESCRIPT ION [place] EMPLO MIMI Feb 25, 2016 [id number] ELIZABETH SMILEY PATIENT AETNA RX PRESCRIPT [facility] Feb 25, 2016 [id number] ELIZABETH BELCHER PATIENT [employer] POINT OF SERVICE T[employer]CO Mar 20, 2002 [id number] ELIZABETH SMILEY PATIENT [employer]IG[employer]* POINT OF SERVICE Mar 20, 2002 [id number] ELIZABETH SMILEY PATIENT Selected Encounter This section includes the information on record at [place] for the Encounter. Date/Time Encounter Type Encounter Description Reason Pro vider Source Nov 25, 2023 09:55 AM Outpatient Encounter TELEPHONE TRIAGE IHE Encounter Template Text not used by [...] - MEDICINE [place] [facility] [place] [facility] Nov 28, 2023 07:35 PM AMBULATORY - MEDICINE [place] C [facility] [place] [place] [facility] Dec 29, 2023 01:30 PM AMBULATORY - MEDICINE [place] C [facility] [place] [facility] Jan 13, 2024 01:00 PM AMBULATORY - MEDICINE [place] C [facility] [place] [facility] Mar 15, 2024 02:00 PM AMBULATORY - MEDICINE [facility] Social History: Smoking Status (Most current) [...] 18, 2023 02:31 PM [facility] Tobacco Use History This section includes a history of the smoking, or tobacco-related health factors, that were collected on or before the date of the Encounter. The data comes from the [place] facility where the Encounter took place. Date/Time Smoking Status/Tobacco Use Comment F acility Feb 18, 2023 02:31 PM VA-TOBACCO QUIT 15 YRS OR MORE [place] [facility] [place] [facility] Dec 31, 2021 01:00 PM VA-TOBACCO FORMER USER [place] [facility] [place] [facility] Dec 31, 2021 01:00 PM [facility]-TOBACCO [facility] [...] July 02, 2022 ADVANCE DIRECTIVE SANDRA BROOKS [place] Aug 07, 2021 ADVANCE DIRECTIVE RADHA SAHA IE Nov 28, 2020 ADVANCE DIRECTIVE GOLDIE DUTTA [facility] Encounter Notes: All associated encounter notes This section contains the clinical notes associated to the Encounter. Date/Time Encounter Note(s) Provider Source Nov 25, 2023 09:55 AM RN PROGRESS NOTE: LOCAL TITLE: [facility]: CLINICAL TRIAGE STANDARD TITLE: RN PROGRESS NOTE DATE OF NOTE: NOV 25, 2023@09:55:10 ENTRY DATE: NOV 25, 2023@09:55:11 AUTHOR: KARRI STOCKTON COSIGNER: URGENCY: STATUS: COMPLETED Patient Demographics Patient Name: ELIZABETH SMILEY JR Patient Primary [address]: [address] [place] [address] [place] [address] Patient Primary Phone: [phone] Patient : 1960 Patient Age: 63 Caller/Recipient Relation to Patient: Self Emergency Contact: YVES SMILEY Triage Summary Conducted triage/discussed symptoms Pain Score: 3 Utilized the Triage Tool: Yes Chief Complaint: Skin Lesion System WHEN: Within 2 Weeks Nurse's Recommendation / WHEN: Within 3 Days System WHERE: Clinic Nurse's Recommendation / WHERE: Virtual Video Visit Patient Disposition Patient/Caregiver agrees to plan of care: Yes Patient WHERE: Virtual Video Visit Patient WHEN: Within 3 days Nursing Plan and Disposition Referred for [facility] Virtual Clinic Visit Transferred patient to [facility] & Admin-VCV Other course(s) of action Generated msg to PACT/Provider Provided guidance for worsening symptoms: *Caller/Patient* advised to call facilities [place] Clinical Contact Center or seek immediate medical attention for new or worsening symptoms Nurse Summary Nurse Summary: Vet stated, For 2 weeks, I have spot on L forearm. ? pimple/in-grown. size of pencil-head eraser, red & slightly raised. Lean against something, it's a little tender. Skin looks dried up on the top. I can push down on it & it doesn't hurt . Vet offered no further c/o & in NAD. R: Vet agrees w/appt w/[facility]. Modality: VVC. Appt timeframe: w/in 3 days, Appt Reason: Skin lesion L forearm x 2 weeks. Successful transfer to [facility], to make appt w/[facility]. Opt#2: F2F w/PCP w/in 3 days. Opt#3: Local UC via [place] Act *[facility] Clinical Contact Center ph# , available 09/09. View alerted 2 Pact Team members/Nurse/s PER VISN 1 Protocol. Clinical Contact Center Codes Clinic/Location: V1 CWM PHONE [facility] RN Decision Support System Output: Triage Complete Triage Date: 11/25/2023, 09:49 AM Triage Note: Decision Support Tool Used: [facility] Phone Triage Nahomi, 25 Nov 2023 13:45:45 +0000 [facility] Demographics 63 y/o Male Results CC: Skin Lesion Software suggested: Within 2 Weeks Software suggested follow-up location: Clinic, consider [facility] care Values and Measures Duration of CC: 2 Weeks Positive Responses HPI: new mole or skin growth, within past 3 months HPI: skin erythema, around skin lump or bump VS: temperature not taken Negative Responses Denies: HPI: axillary lymphadenopathy Denies: HPI: lymph node swelling, inguinal Denies: HPI: mole or skin growth, bleeding Denies: HPI: mole or skin growth, change in color Denies: HPI: mole or skin growth, change in shape Denies: HPI: mole, enlarging Denies: HPI: red streaks, from the skin lump or bump Denies: HPI: skin lump, painful, swollen Denies: HPI: skin papules, ramos, hand or plantar foot Denies: HPI: skin tenderness, around the skin lump or papule IMPORTANT: This note was created by [facility] Clinical Contact Center staff. Please do not alert the staff member by adding them as a signer for future communications. Alerts are not monitored by this user. /bienvenido/ KARRI OKEEFEN 1 [facility] TRACER BULLET SECTION SUPERVISOR Signed: 11/25/2023 09:55 Receipt Acknowledged By: 11/26/2023 11:55 /es/ MAXIMO HOFFMAN LPN LPN 11/25/2023 10:38 /es/ STEVEN DIAL RN REGISTERED NURSE KARRI STOCKTON [facility]
--- OUTSIDE RECORDS SUMMARY | 2024-02-17 09:34 | XMS_ITS ---
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 [place] Address [address] [place] [address] Care Team Providers Care Commissioner Of Officials Name Role Phone LEV OCONNELL Primary Care [...] Member ID Insurance Provider's Telephone Number Policy Prasda's Name Patient's Relationship to Policy Prasad [employer] PREFERRED PROVIDER ORGANIZAT ION (PPO) FED EMPLO YEES Jan 26, 2020 [id number] ELIZABETH SMILEY JR PATIENT [employer]ET[employer] PREFERRED PROVIDER ORGANIZAT ION (PPO) DW[place]NE [place] EMPLO YEES Feb 25, 2016 [id number] ELIZABETH SMILEY JR PATIENT AETNA PREFERRED PROVIDER ORGANIZAT ION (PPO) DWAYNE AL EMPL [facility] Feb 25, 2016 [id number] [phone] ELIZABETH SMILEY JR PATIENT [employer]ET[employer] PREFERRED PROVIDER ORGANIZAT ION (PPO) DWAYNE AL EMPL [facility] Feb 25, 2016 [id number] ELIZABETH SMILEY PATIENT AET[employer] PREFERRED PROVIDER ORGANIZAT ION (PPO) DWAYNE AL EMPLO MIMI COOLEY Feb 24, 2016 [id number] ELIZABETH SMILEY PATIENT AETNA PHARMACY MANAGEMENT PRESCRIPT ION [place]NE [place] EMPLO MIMI Jan 26, 2020 [id number] ELIZABETH SMILEY JR PATIENT [employer] PHARMACY MANAGEMENT PRESCRIPT ION DAIANA Feb 25, 2016 [id number] ELIZABETH SMILEY PATIENT [employer] PHARMACY MANAGEMENT PRESCRIPT ION [place]NE AL EMPLO MIMI Feb 25, 2016 [id number] ELIZABETH SMILEY PATIENT AETNA RX PRESCRIPT ION [place] EMPLO MIMI Feb 25, 2016 [id number] ELIZABETH SMILEY PATIENT AETNA RX PRESCRIPT ION [facility] Feb 25, 2016 [id number] ELIZABETH SMILEY JR PATIENT [employer] POINT OF SERVICE [employer] Mar 20, 2002 [id number] ELIZABETH SMILEY PATIENT [employer]* POINT OF SERVICE Mar 20, 2002 [id number] ELIZABETH SMILEY PATIENT Selected Encounter This section includes the information on record at [place] for the Encounter. Date/Time Encounter Type Encounter Description Reason Provider Source Nov 26, 2023 10:00 AM OFFICE O/P EST MOD 30 MIN GENERAL INTERNAL MEDICINE ICD-10-CM L72.3 Sebaceous cyst YING CORTEZ NP E Encounter Template Text not used by [place] Assessments - Encounter Diagnoses This section includes the primary and secondary diagnoses documented for the Encounter. 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 This section includes future appointments and future orders which are active, pending or scheduled. Future Appointments This section includes appointments that were scheduled to occur 6 months from the date of the Encounter, up to a maximum of 20 appointments. The data comes from all [place] treatment facilities. Appointment Date/Time Appointment Type Appointme nt Facility Name Nov 28, 2023 07:35 PM AMBULATORY - MEDICINE [facility] Dec 29, 2023 01:30 PM AMBULATORY - MEDICINE [facility] Jan 13, 2024 01:00 PM AMBULATORY - MEDICINE [facility] Mar 15, 2024 02:00 PM AMBULATORY - MEDICINE [facility] Active, Pending, and Scheduled Orders This section includes a listing of several types of active, pending, and scheduled orders, including clinic medications orders, diagnostic test orders, procedure orders and consult orders; where the start date of the order is 45 days before the date of the Encounter or 45 days after the date of theEncounter. The data comes from all [facility]. Test Date/Time Test Type Test Details Facility Name Jan 10, 2024 10:02 PM Consult Order COMMUNITY CARE-NEUROLOGY [facility] Associate Java Developer's [facility] Social History: Smoking Status (Most current) and [...] Encounter took place. Date/Time Current Smoking Status Piper alvares Feb 18, 2023 02:31 PM VA-TOBACCO FORMER USER [facility] Tobacco Use History This section includes a history of the smoking, or tobacco-related health factors, that were collected on or before the date of the Encounter. The data comes from the [place] facility where the Encounter took place. Date/Time Smoking Status/Tobacco Use Comment F acility Feb 18, 2023 02:31 PM [facility]-TOBACCO QUIT [facility]RS [facility] Dec 31, 2021 01:00 PM [place]-TOBACCO FORMER USER [facility] Dec 31, 2021 01:00 PM [place]-TOBACCO QUIT 15 YRS OR MORE [facility] Advance Directives: All historical and current Section Date Range: From patient's date of to the date document was created. This section includes ALL of a patient's completed or amended [place] Advance and Rescinded Directives. The entries below indicate that a directive exists for the patient, but an actual copy is not included with this document. The data comes from all [place] facilities. Date Advance Directives Provider Source July 02, 2022 ADVANCE DIRECTIVE [facility] Aug 07, 2021 ADVANCE DIRECTIVE RADHA SAHA [facility] Nov 28, 2020 ADVANCE DIRECTIVE GOLDIE DUTTA [facility] Encounter Notes: All associated encounter notes This section contains the clinical notes associated to the Encounter. Date/Time Encounter Note(s) Provider Source Nov 26, 2023 10:00 AM TELEHEALTH NOTE: LOCAL TITLE: TELE EMERGENCY CARE NOTE STANDARD TITLE: TELEHEALTH NOTE DATE OF NOTE: NOV 26, 2023@10:00 ENTRY DATE: NOV 26, 2023@10:01:04 AUTHOR: YING CORTEZ NP EXP COSIGNER: URGENCY: STATUS: COMPLETED This is a tele-emergency care visit to address acute/urgent issues. Definitive care on chronic medical issues will be deferred to routine Primary Care appointment/provider. Consult Origin: Referral from the Clinical Contact Center/Call Center Type of Visit: Video Visit: Telehealth Disclosure: Visit conducted by synchronous telehealth. Patient verbal consent obtained. Location/emergency number confirmed. Environment surveyed and all participants identified. Virtual conference room locked. Emergency contact information was obtained as follows: Patient's current address [address] [place] [id number] Patient's Phone Number:PATIENT PHONE - PHONE NUMBER [CELLULAR] - Primary NOK: YVES SMILEY Relation: EXTENDED FAMILY M Ricci [place], [place] [phone] Subjective: Mr. Smiley is 63M w/ hx ED, CKD4, obesity, DM, HL, HTN. report of X 2 weeks -cause - unknown cause +L forearm / back -?pimple/in-grown. size of pencil-head eraser, +erythema - less +slight edema +slight tender w/ alot of pressure +dry skin on top -no pain/pruritus Deny pain/warmth/crepitus/drainage /ulcer/wound Self treatment: hydrocortisone w/ slight good effect. Deny fever, chill, sob, chaparro, cp, palitation, syncope, swollen throat/face, n/v/d, medical change, medications change, new soap/lotion/detergent, new food allergy, insect bites, allergy. Objective: Telephone interview Unable to perform complete physical exam due to nature of tele- health visit. No active distress noted. Clear speech, appropriate respond. No sound of distress w/ interview. No wheezes or shortness of breath while speaking. VVC NAD, clear speech, appropriate respond LEFt forearm/posterior - hairy arm +nodule / pimple - size eraser w/ pink edge w/ flaky top on half of area from 1 to 4 o'clock. no visible drainage +erythema -slowly improving per pt. Deny pain/warmth/crepitus/drainage /ulcer/wound ACTIVE PROBLEMS: Code Description R25.2 Cramp in lower leg ([facility] [id number]) K59.00 Constipation ([facility] [id number]) D64.9 Anemia ([facility] [id number]) N52.9 Erectile Dysfunction ([facility] [id number]) N18.4 Chronic kidney disease stage 4 ([facility] [id number]) G47.30 Obstructive sleep apnea syndrome ([facility] [id number]) G47.09 Insomnia ([facility] [id number]) M51.16 Lumbar radiculopathy ([facility] [id number]) R69. History of excision of lamina of lumbar vertebra for decompression of spinal cord ([facility] [id number]) J30.9 Allergic rhinitis ([facility] [id number]) V76.51 Screening for Malignant Neoplasms of colon (ICD-9-CM V76.51) N03.1 Focal glomerulonephritis ([facility] [id number]) E66.8 Obesity ([facility] [id number]) E03.9 Hypothyroid ([facility] [id number]) E11.9 Diabetes mellitus type 2 without retinopathy ([facility] [id number]) 185. PROSTATE, MALIGN NEOPLASM (ICD-9-CM 185.) N04.1 Nephrotic syndrome ([facility] [id number]) E78.2 Hyperlipidemia ([facility] [id number]) I10. Benign essential hypertension ([facility] [id number]) ALLERGIES/ADR: SPIRONOLACTONE, LOVASTATIN, KETOROLAC TROMETHAMINE NONSTEROIDAL ANTI-INFLAMMATORY Active Outpatient Medications (including Supplies): ALCOHOL PREP PAD USE 1 PAD TOPICALLY ONCE DAILY TO CLEAN ACTIVE SKIN FOR INJECTION ETC AMLODIPINE BESYLATE 5MG TAB TAKE ONE TABLET BY MOUTH ONCE ACTIVE (S) DAILY FOR BLOOD PRESSURE/HEART, DO NOT TAKE WITH GRAPEFRUIT JUICE ATORVASTATIN CALCIUM 80MG TAB TAKE ONE-HALF TABLET BY ACTIVE MOUTH ONCE DAILY FOR CHOLESTEROL BACLOFEN 10MG TAB TAKE ONE TABLET BY MOUTH THREE TIMES A ACTIVE DAY FOR MUSCLE RIGIDITY (REPLACES CYCLOBENZAPRINE) CARBOXYMETHYLCELLULOSE NA 0.5% OPH SOLN INSTILL 1 DROP ACTIVE INTO EACH EYE FOUR TIMES A DAY FOR DRY EYE CHOLECALCIF 25MCG (D3-1,000UNIT) TAB TAKE ONE TABLET BY ACTIVE MOUTH ONCE DAILY FOR VITAMIN SUPPLEMENTATION CLONAZEPAM 0.5MG TAB TAKE ONE TABLET BY MOUTH THREE TIMES ACTIVE A DAY ELECTRODE SPRAY,SIGNASPRAY APPROPRIATE AMOUNT TOPICALLY ACTIVE DIRECTED BY PROVIDER (SIGNA SPRAY REPLACES ALPHA-STIM SOLUTION) EMPAGLIFLOZIN 10MG TAB TAKE ONE TABLET BY MOUTH ONCE DAILY ACTIVE FOR DIABETES IRBESARTAN 300MG TAB TAKE ONE [...] 81MG BY MOUTH ONCE DAILY ACTIVE Non-VA FISH OIL 1000MG (500MG DHA/EPA) CAP 1000MG BY MOUTH ACTIVE TWICE DAILY Non-VA MAGNESIUM OXIDE 250MG TAB 500MG BY MOUTH ONCE DAILY ACTIVE Current medications reviewed with patient/caregiver and reconciliation of medications related to today's visit completed, including non-VA medications and discrepancies, if identified, were addressed. Medication changes and the importance of medication management were reviewed with the patient/caregiver today based on individual needs. Patient/caregiver acknowledged understanding of instructions as stated. Objective: Reason for Referral: Skin Assessment/Impression: +LEFT forearm - ?sebacous cyst vs epidermoid cysit/ingrown hair -hx sebacous cyst - under armpit, needed excision Plan: -Keep site clean, warm compress prn, hydrocortisone or antibiotic ointment/bandage daily no s/s infection. Slowly improving - less rythema. -Pt agree to continue self care w/ avoid friction/pressure, hydration, rest, cold/warm compress,monitor s/s infection. -Pt agree to go ER if extreme pain/symptoms, worsen rash, anaphylaxis symptoms, s/s infection, sob, cp, palpitation, syncope -Notify [facility] team Plan: Issue resolved with Tele Urgent Care appointment Patient verbalizes understanding of the care plan Time spent in telephone/video visit: / YING CORTEZ AGPCNP-BC VISN 1 Clinical Contact Center Signed: 11/26/2023 10:55 Receipt Acknowledged By: 11/26/2023 13:37 /es/ BESSIE WALLACE NP NURSE PRACTITIONER for LEV Antunez YOGICLARIBELRamilaDARIENDMITRI 12/02/2023 12:47 /es/ STEVEN DIAL RN REGISTERED NURSE YING CORTEZ NP [place] [facility]
--- OUTSIDE RECORDS SUMMARY | 2024-02-17 09:34 | XMS_ITS | Encounter Summary ---
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 Organization Department of [facility] Affairs ([place]) Address [address] [place] [address] Care Team Providers Care Counter Former Name Role Phone LEV OCONNELL Primary Care [...] PREFERRED PROVIDER ORGANIZAT ION (PPO) FED EMPLO [facility] Jan 26, 2020 [id number] [phone] ELIZABETH SMILEY JR PATIENT [employer] PREFERRED PROVIDER ORGANIZAT ION (PPO) DWAYNE AL EMPLO [facility] Feb 25, 2016 [id number] [phone] ELIZABETH SMILEY JR PATIENT AET[employer] PREFERRED PROVIDER ORGANIZAT ION (PPO) DWAYNE AL EMPL [facility] Feb 25, 2016 [id number] ELIZABETH SMILEY JR PATIENT A[employer] PREFERRED PROVIDER ORGANIZAT ION (PPO) DWAYNE AL EMPL [facility] Feb 25, 2016 [id number] ELIZABETH SMILEY PATIENT AET[employer] PREFERRED PROVIDER ORGANIZAT ION (PPO) DWAYNE AL MIO MIMI COOLEY Feb 24, 2016 [id number] ELIZABETH SMILEY PATIENT [employer]ET[employer] PHARMACY MANAGEMENT PRESCRIPT ION DWAYNE AL EMPLO MIMI Jan 26, 2020 [id number] ELIZABETH SMILEY JR PATIENT [employer]ET[employer] PHARMACY MANAGEMENT PRESCRIPT ION DAIANA Feb 25, 2016 [id number] ELIZABETH SMILEY PATIENT [employer] PHARMACY MANAGEMENT PRESCRIPT ION DWAYNE AL EMPLO MIMI Feb 25, 2016 [id number] ELIZABETH SMILEY PATIENT AETNA RX PRESCRIPT ION [place]AYNE AL EMPLO MIMI Feb 25, 2016 [id number] ELIZABETH SMILEY PATIENT AETNA RX PRESCRIPT ION [facility] Feb 25, 2016 [id number] ELIZABETH SMILEY JR PATIENT [employer] POINT OF SERVICE [employer] Mar 20, 2002 [id number] ELIZABETH SMILEY PATIENT [employer]* POINT OF SERVICE Mar 20, 2002 [id number] ELIZABETH SMILEY PATIENT Selected Encounter This section includes the information on record at [place] for the Encounter. Date/Time Encounter Type Encounter Description Reason Pro vider Source Sep 30, 2023 12:26 PM Outpatient Encounter PRIMARY CARE/MEDICINE IHE Encounter Template Text not used by [place] Plan of Treatment: Future Appointments (+ 6 months) and Future Tests (+/- 45 days) The Plan of Treatment section includes future care activities for the patient from all [place] treatmentfacilities. This section includes future appointments and future orders which are active, pending or scheduled. Future Appointments This section includes appointments that were scheduled to occur 6 months from the date of the Encounter, up to a maximum of 20 appointments. The data comes from all [place] treatment facilities. Appointment Date/Time Appointment Type Appointme nt Facility Name Nov 26, 2023 10:00 AM AMBULATORY - MEDICINE [place] [facility] [place] [facility] Nov 28, 2023 07:35 PM AMBULATORY - MEDICINE [place] [facility] [place] [facility] Dec 29, 2023 01:30 PM AMBULATORY - MEDICINE [place] [facility] [place] [facility] Jan 13, 2024 01:00 PM AMBULATORY - MEDICINE [place] [facility] [place] [facility] Mar 15, 2024 02:00 PM AMBULATORY - MEDICINE [facility] Social History: Smoking Status (Most current) and Tobacco Use (All prior to encounter date) This section includes the most current, and the historical, smoking and tobacco- related health factors from the [place] facility where the Encounter took place. Current Smoking Status This section includes the most current smoking, or tobacco-related health factor, from the [place] facility where the Encounter took place. Date/Time Current Smoking Status Comment Facil ity Feb 18, 2023 02:31 PM [facility] Tobacco Use History This section includes a history of the smoking, or tobacco-related health factors, that were collected on or before the date of the Encounter. The data comes from the [place] facility where the Encounter took place. Date/Time Smoking Status/Tobacco Use Comment F acility Feb 18, 2023 02:31 PM VA-TOBACCO QUIT 15 YRS OR MORE [place] [facility] [place] [facility] Dec 31, 2021 01:00 PM VA-TOBACCO FORMER USER [place] [facility] [place] [facility] Dec 31, 2021 01:00 PM VA-TOBACCO QUIT 15 YRS OR MORE [facility] Advance Directives: All historical and current Section Date Range: From patient's date of to the date document was created. This section includes ALL of a patient's completed or amended [place] Advance and Rescinded Directives. The entries below indicate that a directive exists for the patient, but an actual copy is not included with this document. The data comes from all [place] facilities. Date Advance Directives Provider Source July 02, 2022 AD[facility]ANCE DIRECT[facility] Aug 07, 2021 ADVANCE DIRECTIVE RADHA SAHA [facility] Nov 28, 2020 ADVANCE DIRECTIVE GOLDIE DUTTA [facility] Encounter Notes: All associated encounter notes This section contains the clinical notes associated to the Encounter. Date/Time Encounter Note(s) Provider Source Sep 30, 2023 12:26 PM MEDICATION MGT NOT E: LOCAL TITLE: OUTPATIENT MEDICATION REQUEST STANDARD TITLE: MEDICATION MGT NOTE DATE OF NOTE: SEP 30, 2023@12:26 ENTRY DATE: SEP 30, 2023@12:26:48 AUTHOR: MAXIMO HOFFMAN COSIGNER: URGENCY: STATUS: COMPLETED Medication Request Date of Request: Sep Is this a New Medication? No PLEASE RENEW AND MAIL 11) LEVOTHYROXINE NA (SYNTHROID) 100MCG TAB TAKE TWO ACTIVE TABLETS BY MOUTH FRI, FRI, FRI, FRI, FRI, & SAT AND TAKE ONE TABLET ON FRIDAY FOR THYROID - TAKE ON AN EMPTY STOMACH WITH A FULL GLASS OF WATER /bienvenido/ MAXIMO HOFFMAN LPN LPN Signed: 09/30/2023 12:28 Receipt Acknowledged By: 10/06/2023 08:28 /bienvenido/ BESSIE WALLACE NP NURSE PRACTITIONER for MAXIMO LAZARO
--- OUTSIDE RECORDS SUMMARY | 2024-02-17 09:34 | XMS_ITS | Encounter Summary ---
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 Organization [place] Address [address] [place] [address] Care Team Providers Care Television Inspector Name Role Phone LEV OCONNELL Primary [...] PROVIDER ORGANIZAT ION (PPO) FED EMPLO [facility] Jan 26, 2020 [id number] [phone] ELIZABETH SMILEY JR PATIENT [employer] PREFERRED PROVIDER ORGANIZAT ION (PPO) DWAYNE AL EMPLO [facility] Feb 25, 2016 [id number] ELIZABETH SMILEY JR PATIENT [employer] PREFERRED PROVIDER ORGANIZAT ION (PPO) DWAYNE AL EMPL [facility] Feb 25, 2016 [id number] ELIZABETH SMILEY JR PATIENT [employer] PREFERRED PROVIDER ORGANIZAT ION (PPO) DWAYNE AL EMPL [facility] Feb 25, 2016 [id number] ELIZABETH SMILEY PATIENT [employer] PREFERRED PROVIDER ORGANIZAT ION (PPO) DWAYNE AL MIO MIMI [facility] Feb 24, 2016 [id number] ELIZABETH SMILEY PATIENT [employer] PHARMACY MANAGEMENT PRESCRIPT ION DWAYNE AL EMPLO MIMI Jan 26, 2020 [id number] ELIZABETH SMILEY JR PATIENT [employer] PHARMACY MANAGEMENT PRESCRIPT ION [facility]NA Feb 25, 2016 [id number] ELIZABETH SMILEY PATIENT [employer] PHARMACY MANAGEMENT PRESCRIPT ION DWAYNE AL EMPLO MIMI Feb 25, 2016 [id number] ELIZABETH SMILEY PATIENT [employer] RX PRESCRIPT ION DWAYNE AL EMPLO MIMI Feb 25, 2016 [id number] ELIZABETH SMILEY PATIENT AETNA RX PRESCRIPT ION [facility] Feb 25, 2016 [id number] ELIZABETH SMILEY JR PATIENT [employer] POINT OF SERVICE [employer] Mar 20, 2002 [id number] ELIZABETH SMILEY PATIENT [employer]* POINT OF SERVICE Mar 20, 2002 [id number] ELIZABETH SMILEY PATIENT Selected Encounter This section includes the information on record at [place] for the Encounter. Date/Time Encounter Type Encounter Description Reason Pro vider Source Sep 03, 2023 12:00 AM Outpatient Encounter COMMUNITY CARE CONSULT IHE Encounter Template Text not used by [place] Plan of Treatment: Future Appointments (+ 6 months) and Future Tests (+/- 45 days) The Plan of Treatment section includes future care activities for the patient from all [place] treatmentfacilities. This section includes future appointments and future orders which are active, pending or scheduled. Future Appointments This section includes appointments that were scheduled to occur 6 months from the date of the Encounter, up to a maximum of 20 appointments. The data comes from all [place] treatment facilities. Appointment Date/Time Appointment Type Appointme nt Facility Name Sep 04, 2023 01:30 PM AMBULATORY - MEDICINE [facility] Sep 29, 2023 02:30 PM AMBULATORY - NONE [place] [facility] [place] [facility] Nov 26, 2023 10:00 AM AMBULATORY - MEDICINE [place] [facility] [facility] Nov 28, 2023 07:35 PM AMBULATORY - MEDICINE [place] C [facility] [facility] Dec 29, 2023 01:30 PM AMBULATORY - MEDICINE [place] C [facility] [place] [facility] Jan 13, 2024 01:00 PM AMBULATORY - MEDICINE [place] C [facility] [facility] Lab Results: +/- 30 days of the encounter This section includes the Chemistry and Hematology Lab Results on record with [place] for the patient. Radiology Reports and Pathology Reports are provided separately, in subsequent sections. Lab Results This section contains the Chemistry/Hematology Results that were resulted 30 days before or 30 daysafter the date of the Encounter. Date/Time Source Result Type Result - Unit Interpretation Reference Range Comment Aug 29, 2023 09:29 AM [place] PROTEIN/CREATININE RATIO PANEL, URINE S pecimen Type: URINE No comment entered. Ordering Provider: LEV LIZAMA Report Released Date/Time: Aug 29, 2023 09:24 AM Reporting Lab[facility] [address] [address] Performing Lab: [place] [facility] [address] [address] CREATININE URINE 64.72 mg/dL UR PROTEIN/CREATI NINE RATIO 1.6 <0.2 PROTEIN, URINE 102.7 mg/dL H 0.0-20.0 Aug 29, 2023 09:29 AM [place] ELECTROLYTE PANEL Specimen Type: SERUM No comment entered. Ordering Provider: LEV LIZAMA Report Released Date/Time: Aug 29, 2023 09:24 AM Reporting Lab: [place] [address] [address] Performing Lab: [facility] [address] SODIUM 141 mmol/L 135-145 POTASSIUM 4.9 mmol/L 3.5-5.0 CHLORIDE 109 mmol/L 100-110 CO2 23 meq/L -30 Aug 29, 2023 09:00 AM [place] THYROID T4 FREE(FT4) (WROX) Specimen Ty pe: SERUM No comment entered. Ordering Provider: LEV LIZAMA Report Released Date/Time: Mar 06, 2023 09:49 AM Reporting Lab: [facility] [place] [facility] [address] [facility] [address] Performing Lab: [place] [facility] [facility] [address] [facility] [address] THYROID T4 FREE(FT4) (WROX) 1.31 ng/dL 0.6-1.6 Aug 29, 2023 09:00 AM [place] PSA Specimen Type: SERUM No comment entered. Ordering Provider: LEV LIZAMA Report Released Date/Time: Mar 06, 2023 09:35 AM Reporting Lab: [facility] [address] [facility] [address] Performing Lab: [facility] [place] [facility] [address] [facility] [address] PSA < 0.10 ng/mL 0.00-4.00 Aug 29, 2023 09:00 AM [place] VITAMIN D (25-OH) Specimen Type: SERUM No comment entered. Ordering Provider: LEV LIZAMA Report Released Date/Time: Mar 06, 2023 09:49 AM Reporting Lab: [facility] [place] [facility] [address] [facility] [address] Performing Lab: [facility] [address] [facility] [address] VITAMIN D (25-OH) 32 ng/mL 20-50 Aug 29, 2023 09:00 AM [place] VITAMIN B12 Specimen Type: SERUM No comment entered. Ordering Provider: LEV LIZAMA Report Released Date/Time: Mar 06, 2023 09:49 AM Reporting Lab: [facility] [place] [facility] [address] [facility] [address] Performing Lab: [facility] [address] [address] VITAMIN B12 407 pg/mL 200-900 Aug 29, 2023 09:00 AM [place] HEMOGLOBIN A1C PANEL Specimen Type: BLOOD Comment: [...] Mar 06, 2023 09:49 AM Reporting Lab: [facility] [address] [address] Performing Lab: [address] [address] HEMOGLOBIN A1C 7.1 H 4.0-5.6 Aug 29, 2023 09:00 AM [place] MICROALBUMIN CREATININE RATIO PANEL Spe cimen Type: URINE No comment entered. Ordering Provider: LEV LIZAMA Report Released Date/Time: Mar 06, 2023 09:49 AM Reporting Lab: [facility] [address] Performing Lab: [facility] [address] MICROALBUMIN/C REATININE RATIO 1278.8 mg/g H 0-29.9 MICROALBUMIN,Q UANTITATIVE 82.2 mg/dL RR UNAVAIL CREATININE URINE 64.28 mg/dL Aug 29, 2023 09:00 AM [place] TSH Specimen Type: SERUM No comment entered. Ordering Provider: LEV LIZAMA Report Released Date/Time: Mar 06, 2023 09:49 AM Reporting Lab: [facility] [address] Performing Lab: [facility] [address] [address] TSH 1.25 u[IU]/mL 0.35-5.00 Aug 29, 2023 09:00 AM [place] LIVER FUNCTION Specimen Type: SERUM No comment entered. Ordering Provider: LEV LIZAMA Report Released Date/Time: Mar 06, 2023 09:49 AM Reporting Lab: [facility] [address] [facility] [address] Performing Lab: [address] [address] PROTEIN,TOTAL 6.3 g/dL 6.0-8.3 ALBUMIN 3.7 g/dL 3.5-5.0 ALKALINE PHOSPHATASE 49 U/L 40-150 AST 13 U/L 5-34 ALT 32 U/L BILIRUBIN, TOTAL 0.3 mg/dL 0.2-1.2 Aug 29, 2023 09:00 AM [place] BASIC METABOLIC PANEL (fasting) Specime n Type: SERUM No comment entered. Ordering Provider: LEV LIZAMA Report Released Date/Time: Mar 06, 2023 09:49 AM Reporting Lab: [address] [address] Performing Lab: [address] [address] UREA NITROGEN 54 mg/dL H 7-25 GLUCOSE 178 mg/dL H 65-100 SODIUM 141 mmol/L 135-145 POTASSIUM 4.9 mmol/L 3.5-5.0 CHLORIDE 108 mmol/L 100-110 CO2 25 meq/L 20-30 CREATININE, Serum 2.48 mg/dL H 0.50-1.40 eGFR(CKD-EPI 2020) 28 mL/min L >60 Aug 29, 2023 09:00 AM [place] LIPID PANEL FASTING Specimen Type: SERUM No comment entered. Ordering Provider: LEV LIZAMA Report Released Date/Time: Mar 06, 2023 09:49 AM Reporting Lab: [address] [address] Performing Lab: [address] [address] CHOLESTEROL 243 mg/dL H TRIGLYCERIDE 139 mg/dL 0-150 LDL calculated 174 mg/dL H 0-129 CHOL/HDL 5.9 HDL CHOLESTEROL 41 mg/dL 40-60 Aug 29, 2023 09:00 AM [place] IRON & TIBC PANEL Specimen Type: SERUM No comment entered. Ordering Provider: LEV LIZAMA Report Released Date/Time: Mar 06, 2023 09:49 AM Reporting Lab: [address] [address] Performing Lab: [address] [address] TIBC 298 ug/dL 204-475 IRON 76 ug/dL 40-160 Transferrin Saturation 25.5 20.0-50.0 Aug 29, 2023 09:00 AM [place] CBC AND DIFF (AUTO) Specimen Type: BLOOD No comment entered. Ordering Provider: LEV LIZAMA Report Released Date/Time: Mar 06, 2023 09:49 AM Reporting Lab: [address] [address] Performing Lab: [address] [address] WBC 9.47 10*3/uL 4.50-11.00 RBC 5.00 10*6/uL [...] and tobacco- related health factors from the [place] facility where the Encounter took place. Current Smoking Status This section includes the most current smoking, or tobacco-related health factor, from the [place] facility where the Encounter took place. Date/Time Current Smoking Status Comment Facil ity Feb 18, 2023 02:31 PM VA-TOBACCO FORMER USER [facility] Tobacco Use History This section includes a history of the smoking, or tobacco-related health factors, that were collected on or before the date of the Encounter. The data comes from the [place] facility where the Encounter took place. Date/Time Smoking Status/Tobacco Use Comment F acility Feb 18, 2023 02:31 PM VA-TOBACCO QUIT 15 YRS OR MORE [facility] [place] [facility] Dec 31, 2021 01:00 PM VA-TOBACCO FORMER USER [place] [facility] Dec 31, 2021 01:00 PM VA-TOBACCO QUIT 15 YRS OR MORE [facility] Advance Directives: All historical and current Section Date Range: From patient's date of to the date document was created. This section includes ALL of a patient's completed or amended [place] Advance and Rescinded Directives. The entries below indicate that a directive exists for the patient, but an actual copy is not included with this document. The data comes from all [place] facilities. Date Advance Directives Provider Source July 02, 2022 ADVANCE DIRECTIVE [facility]DR[facility] Aug 07, 2021 ADVANCE DIRECTIVE [facility] Nov 28, 2020 ADVANCE DIRECTIVE GOLDIE DUTTA [facility] Encounter Notes: All associated encounter notes This section contains the clinical notes associated to the Encounter. Date/Time Encounter Note(s) Provider Source Sep 03, 2023 12:00 AM NONVA CONSULT: LOCAL TITLE: COMMUNITY CARE-CONSULT RESULT NOTE STANDARD TITLE: NONVA CONSULT DATE OF NOTE: SEP 03, 2023 ENTRY DATE: OCT 22, 2023@13:16:45 AUTHOR: SANJIV IQBAL COSIGNER: URGENCY: STATUS: COMPLETED VistA Imaging - Scanned Document SCANNED DOCUMENT SIGNATURE NOT REQUIRED Electronically Filed: 10/22/2023 by: SANJIV CAUSEY CNTL [facility]
--- OUTSIDE RECORDS SUMMARY | 2024-02-17 09:34 | XMS_ITS ---
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 Organization [facility] Address [address] [place] [address] Care Team Providers Care Tumbling Machine Operator Name Role Phone LEV OCONNELL [...] PREFERRED PROVIDER ORGANIZAT ION (PPO) FED EMPLO [facility] Jan 26, 2020 [id number] ELIZABETH SMILEY JR PATIENT [employer] PREFERRED PROVIDER ORGANIZAT ION (PPO) DWAYNE AL EMPLO [facility] Feb 25, 2016 [id number] [phone] ELIZABETH SMILEY JR PATIENT [employer] PREFERRED PROVIDER ORGANIZAT ION (PPO) DWAYNE AL EMPL [facility] Feb 25, 2016 [id number] ELIZABETH SMILEY JR PATIENT [employer] PREFERRED PROVIDER ORGANIZAT ION (PPO) DWAYNE AL EMPL [facility] Feb 25, 2016 [id number] ELIZABETH SMILEY PATIENT [employer] PREFERRED PROVIDER ORGANIZAT ION (PPO) DWAYNE AL MIO MIMI COOLEY Feb 24, 2016 [id number] ELIZABETH SMILEY PATIENT [employer] PHARMACY MANAGEMENT PRESCRIPT ION DWAYNE AL EMPLO MIMI Jan 26, 2020 [id number] ELIZABETH SMILEY JR PATIENT [employer] PHARMACY MANAGEMENT PRESCRIPT ION [facility] Feb 25, 2016 [id number] ELIZABETH SMILEY PATIENT [employer] PHARMACY MANAGEMENT PRESCRIPT ION DWAYNE AL EMPLO MIMI Feb 25, 2016 [id number] ELIZABETH SMILEY PATIENT [employer] RX PRESCRIPT ION DWAYNE AL EMPLO MIMI Feb 25, 2016 [id number] ELIZABETH SMILEY PATIENT AETNA RX PRESCRIPT ION [facility] Feb 25, 2016 [id number] ELIZABETH SMILEY JR PATIENT [employer] POINT OF SERVICE [employer] Mar 20, 2002 [id number] ELIZABETH SMILEY PATIENT [employer]* POINT OF SERVICE Mar 20, 2002 [id number] ELIZABETH SMILEY PATIENT Selected Encounter This section includes the information on record at [place] for the Encounter. Date/Time Encounter Type Encounter Description Reason Pro vider Source Sep 29, 2023 02:15 PM Outpatient Encounter PRIMARY CARE/MEDICINE IHE Encounter Template Text not used by [place] Plan of Treatment: Future Appointments (+ 6 months) and Future Tests (+/- 45 days) The Plan of Treatment section includes future care activities for the patient from all [place] treatmentfacilities. This section includes future appointments and future orders which are active, pending or scheduled. Future Appointments This section includes appointments that were scheduled to occur 6 months from the date of the Encounter, up to a maximum of 20 appointments. The data comes from all [place] treatment facilities. Appointment Date/Time Appointment Type Appointme nt Facility Name Nov 26, 2023 10:00 AM AMBULATORY - MEDICINE [place] [facility] Nov 28, 2023 07:35 PM AMBULATORY - MEDICINE [place] [facility] Dec 29, 2023 01:30 PM AMBULATORY - MEDICINE [place] [facility] Jan 13, 2024 01:00 PM AMBULATORY - MEDICINE [place] [facility] Mar 15, 2024 02:00 PM AMBULATORY - MEDICINE [facility] Social History: Smoking Status (Most current) and Tobacco Use (All prior to encounter date) This section includes the most current, and the historical, smoking and tobacco- related health factors from the [place] facility where the Encounter took place. Current Smoking Status This section includes the most current smoking, or tobacco-related health factor, from the [place] facility where the Encounter took place. Date/Time Current Smoking Status Comment Facil ity Feb 18, 2023 02:31 PM [facility] Tobacco Use History This section includes a history of the smoking, or tobacco-related health factors, that were collected on or before the date of the Encounter. The data comes from the [place] facility where the Encounter took place. Date/Time Smoking Status/Tobacco Use Comment F acility Feb 18, 2023 02:31 PM VA-TOBACCO QUIT 15 YRS OR MORE [place] [facility] [place] [facility] Dec 31, 2021 01:00 PM VA-TOBACCO FORMER USER [place] [facility] [place] [facility] Dec 31, 2021 01:00 PM VA-TOBACCO QUIT 15 YRS OR MORE [facility] Advance Directives: All historical and current Section Date Range: From patient's date of to the date document was created. This section includes ALL of a patient's completed or amended [place] Advance and Rescinded Directives. The entries below indicate that a directive exists for the patient, but an actual copy is not included with this document. The data comes from all [place] facilities. Date Advance Directives Provider Source July 02, 2022 [facility] Aug 07[facility] 2021 ADVANCE DIRECTIVE RADHA SAHA [facility] Nov 28, [address] GOLDIE DUTTA [facility] Encounter Notes: All associated encounter notes This section contains the clinical notes associated to the Encounter. Date/Time Encounter Note(s) Provider Source Oct 02, 2023 02:32 PM ADDENDUM: LOCAL TITLE: Addendum STANDARD TITLE: ADDENDUM DATE OF NOTE: OCT 02, 2023@14:32:44 ENTRY DATE: OCT 02, 2023@14:32:45 AUTHOR: SANDRA BROOKS COSIGNER: URGENCY: STATUS: COMPLETED phone [facility] and is stating he still has not gotten a refill on medication. He did a partial on 09/29/23, but no record of an order for a refill. New Order (Renewal) entered by RADHA DELVALLE (PHYSICIAN BERNARDO) Order Text: LEVOTHYROXINE NA (SYNTHROID) TAB 100MCG TAKE TWO TABLETS BY MOUTH FRI, FRI, FRI, FRI, FRI, & FRI AND TAKE ONE TABLET ON FRIDAY FOR THYROID - TAKE ON AN EMPTY STOMACH WITH A FULL GLASS OF WATER Quantity: 180 Refills: 1 He is stating he takes two pills on Friday thru Friday and one on Friday and Friday. 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 Please advise /es/ SANDRA MENESES Signed: 10/02/2023 14:37 Receipt Acknowledged By: 10/08/2023 17:24 /es/ LEV OCONNELL MD PHYSICIAN 10/05/2023 15:47 /es/ RIMMA LOPES,RN-BC REGISTERED NURSE (RN) for STEVEN ROBLEROHARIHARDIKJanet --- Original Document --- 09/29/23 WALK-IN NOTE PRIMARY CARE (T): <====Click to Start Advanced Medical Support Holcomb presents to the Primary Care clinic with the following request: [ X ]Medication Renewal/Refill [ ]Consultation with Team RN [ ]Symptoms [ ]Other The states they are: [ ]Waiting [ X ]Not Waiting No Walk in visit scheduled with PACT Nurse [ X ] At this encounter the Holcomb's demographics were verified. [ X ] At this encounter the Holcomb's Insurance information was verified. [ X ] At this encounter the below scheduled visits for the were discussed and appointment reminder card was offered. Future appointments: 09/29/2023 14:30 CWM/SO/SFT/TELEDERM IMAGI 01/13/2024 13:00 NHM/OPTOMETRY/NGUYEN/ 03/15/2024 14:00 CWM/SO/PACT 5 refill request for LEVOTHYROXINE NA (SYNTHROID) TAB 100MCG /es/ DONNA MENESES Signed: 09/29/2023 14:16 Receipt Acknowledged By: 09/30/2023 12:28 /es/ MAXIMO HOFFMAN LPN LPN 09/30/2023 16:28 /es/ STEVEN DIAL RN REGISTERED NURSE 10/05/2023 ADDENDUM STATUS: COMPLETED Sent provider a TEAMS message of med request. /es/ RIMMA LOPES,RN-BC REGISTERED NURSE (RN) Signed: 10/05/2023 15:49 SANDRA BROOKS RIGO Sep 29, 2023 02:15 PM PRIMARY CARE NOTE: LOCAL TITLE: WALK-IN NOTE PRIMARY CARE (T) STANDARD TITLE: PRIMARY CARE NOTE DATE OF NOTE: SEP 29, 2023@14:15 ENTRY DATE: SEP 29, 2023@14:15:40 AUTHOR: DONNA MYERS EXP COSIGNER: URGENCY: STATUS: COMPLETED WALK-IN NOTE PRIMARY CARE (T) Has ADDENDA <====Click to Start Advanced Medical Support Holcomb presents to the Primary Care clinic with the following request: [ X ]Medication Renewal/Refill [ ]Consultation with Team RN [ ]Symptoms [ ]Other The Holcomb states they are: [ ]Waiting [ X ]Not Waiting No Walk in visit scheduled with PACT Nurse [ X ] At this encounter the 's demographics were verified. [ X ] At this encounter the 's Insurance information was verified. [ X ] At this encounter the below scheduled visits for the Holcomb were discussed and appointment reminder card was offered. Future appointments: 09/29/2023 14:30 CWM/SO/SFT/TELEDERM IMAGI 01/13/2024 13:00 NHM/OPTOMETRY/NGUYEN/ 03/15/2024 14:00 CWM/SO/PACT 5 refill request for LEVOTHYROXINE NA (SYNTHROID) TAB 100MCG /bienvenido/ DONNA MENESES Signed: 09/29/2023 14:16 Receipt Acknowledged By: 09/30/2023 12:28 /es/ MAXIMO HOFFMAN LPN LPN 09/30/2023 16:28 /es/ STEVEN DIAL RN REGISTERED NURSE 10/02/2023 ADDENDUM STATUS: COMPLETED Holcomb phone [facility] and is stating he still has not gotten a refill on medication. He did a partial on 09/29/23, but no record of an order for a refill. New Order (Renewal) entered by RADHA DELVALLE (PHYSICIAN BERNARDO) Order Text: LEVOTHYROXINE NA (SYNTHROID) TAB 100MCG TAKE TWO TABLETS BY MOUTH FRI, FRI, FRI, FRI, FRI, & FRI AND TAKE ONE TABLET ON FRIDAY FOR THYROID - TAKE ON AN EMPTY STOMACH WITH A FULL GLASS OF WATER Quantity: 180 Refills: 1 He is stating he takes two pills on Friday thru Friday and one on Friday and Friday. 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 Please advise /es/ SANDRA MENESES Signed: 10/02/2023 14:37 Receipt Acknowledged By: * AWAITING SIGNATURE * LEV OCONNELL 10/05/2023 15:47 /bienvenido/ RIMMA LOPES,RN-BC REGISTERED NURSE (RN) for STEVEN DIAL 10/05/2023 ADDENDUM STATUS: COMPLETED Sent provider a TEAMS message of med request. /bienvenido/ RIMMA LOPES,RN-BC REGISTERED NURSE (RN) Signed: 10/05/2023 15:49 DONNA MYERS
--- OUTSIDE RECORDS SUMMARY | 2024-02-17 09:34 | XMS_ITS | Encounter Summary ---
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 [place] Organization [place] Address [address] [place] [address] Care Team Providers Care Electrical & Instrumentation Supervisor Name Role Phone LEV OCONNELL Primary [...] (PPO) FED EMPLO YE Jan 26, 2020 [id number] ELIZABETH SMILEY JR PATIENT [employer] PREFERRED PROVIDER ORGANIZAT ION (PPO) DWAYNE AL EMPLO YE Feb 25, 2016 [id number] ELIZABETH SMILEY JR PATIENT [employer] PREFERRED PROVIDER ORGANIZAT ION (PPO) DWAYNE AL EMPL [facility] Feb 25, 2016 [id number] ELIZABETH SMILEY JR PATIENT [employer] PREFERRED PROVIDER ORGANIZAT ION (PPO) DWAYNE AL EMPL [facility] Feb 25, 2016 [id number] ELIZABETH SMILEY PATIENT [employer] PREFERRED PROVIDER ORGANIZAT ION (PPO) DWAYNE AL EMPLO MIMI COOLEY Feb 24, 2016 [id number] ELIZABETH SMILEY PATIENT [employer] PHARMACY MANAGEMENT PRESCRIPT ION DWAYNE AL EMPLO MIMI COO[facility] Jan 26, 2020 [id number] ELIZABETH SMILEY JR PATIENT [employer] PHARMACY MANAGEMENT PRESCRIPT ION DAIANA Feb 25, 2016 [id number] ELIZABETH SMILEY PATIENT [employer] PHARMACY MANAGEMENT PRESCRIPT ION DWAYNE AL EMPLO MIMI Feb 25, 2016 [id number] ELIZABETH SMILEY PATIENT AETNA RX PRESCRIPT ION DW[place]NE AL EMPLO MIMI Feb 25, 2016 [id number] ELIZABETH SMILEY PATIENT AETNA RX PRESCRIPT ION [facility] Feb 25, 2016 [id number] BALJIT BELCHERELIZABETH PATIENT [employer] POINT OF SERVICE [employer] Mar 20, 2002 [id number] ELIZABETH SMILEY PATIENT CIGNA* POINT OF SERVICE Mar 20, 2002 [id number] BALJIT ELIZABETH PATIENT Selected Encounter This section includes the information on record at [place] for the Encounter. Date/Time Encounter Type Encounter Description Reason Pro vider Source Nov 20, 2023 01:01 PM Outpatient Encounter ADMIN PAT ACTIVTIES (MASNONCT) IHE Encounter Template Text not used by [place] Plan of Treatment: Future Appointments (+ 6 months) and Future Tests (+/- 45 days) The Plan of Treatment section includes future care activities for the patient from all [place] treatmentfacilities. This section includes future appointments and future orders which are active, pending or scheduled. Future Appointments This section includes appointments that were scheduled to occur 6 months from the date of the Encounter, up to a maximum of 20 appointments. The data comes from all [place] treatment facilities. Appointment Date/Time Appointment Type Appointme nt Facility Name Nov 26, 2023 10:00 AM AMBULATORY - MEDICINE [place] [facility] [place] [facility] Nov 28, 2023 07:35 PM AMBULATORY - MEDICINE [place] [facility] [place] [facility] Dec 29, 2023 01:30 PM AMBULATORY - MEDICINE [place] [facility] [place] [facility] Jan 13, 2024 01:00 PM AMBULATORY - MEDICINE [place] [facility] [place] [facility] Mar 15, 2024 02:00 PM AMBULATORY - MEDICINE [facility] Social History: Smoking Status (Most current) and Tobacco Use (All prior to encounter date) This section includes the most current, and the historical, smoking and tobacco- related health factors from the [place] facility where the Encounter took place. Current Smoking Status This section includes the most current smoking, or tobacco-related health factor, from the [place] facility where the Encounter took place. Date/Time Current Smoking Status Comment Facil ity Feb 18, 2023 02:31 PM VA-TOBACCO FORMER USER [place] [facility] Tobacco Use History This section includes a history of the smoking, or tobacco-related health factors, that were collected on or before the date of the Encounter. The data comes from the [place] facility where the Encounter took place. Date/Time Smoking Status/Tobacco Use Comment F acility Feb 18, 2023 02:31 PM VA-TOBACCO QUIT 15 YRS OR MORE [place] [facility] [place] [facility] Dec 31, 2021 01:00 PM VA-TOBACCO FORMER USER [place] [facility] [place] [facility] Dec 31, 2021 01:00 PM VA-TOBACCO QUIT 15 YRS OR MORE [place] [facility] Advance Directives: All historical and current Section Date Range: From patient's date of to the date document was created. This section includes ALL of a patient's completed or amended [place] Advance and Rescinded Directives. The entries below indicate that a directive exists for the patient, but an actual copy is not included with this document. The data comes from all [place] facilities. Date Advance Directives Provider Source July 02, 2022 ADVANCE DIRECTIVE SANDRA BROOKS [facility] Aug 07, 2021 ADVANCE DIRECTIVE RADHA SAHA [facility] Nov 28, 2020 ADVANCE DIRECTIVE GOLDIE DUTTA [facility] IE Encounter Notes: All associated encounter notes This section contains the clinical notes associated to the Encounter. Date/Time Encounter Note(s) Provider Source Nov 20, 2023 01:01 PM ADMINISTRATIVE NOTE: LOCAL TITLE: CCC: SCHEDULING ADMINISTRATION STANDARD TITLE: ADMINISTRATIVE NOTE DATE OF NOTE: NOV 20, 2023@13:01:35 ENTRY DATE: NOV 20, 2023@13:01:36 AUTHOR: BRANDON FLOYD EXP COSIGNER: URGENCY: STATUS: COMPLETED Patient Demographics Patient Name: ELIZABETH SMILEY JR Patient Primary Phone: [phone] Patient Primary Address: [address] [place] [address] [place] [address] Patient : 1960 Patient Age: 63 Current Location: carey Call Back Number: [phone] Caller/Recipient Relation to Patient: Self Scheduling Cannot Complete Scheduling Action Reason: No Appointment Available Requested Service(s): Primary Care Scheduling Note Reason: Cannot Complete Appointment Request Open Request: None of the above Administrative Administrative Note Reason: Returned Call Administrative Note Comments: Patient was advised [facility] [phone] he can not come into Consult with [facility] with out order of MRI with in year they require this before this appointment is schedule. .Patient will not get seen ,Patient reach out [facility] was advised to inform primary care on require new order for MRI .Patient is requesting MRI order from the [place] .Requesting call back when new order is completed . IMPORTANT: This note was created by [facility] Clinical Contact Center staff. Please do not alert the staff member by adding them as a signer for future communications. Alerts are not monitored by this user. /bienvenido/ BRANDON FLOYD VISN1 CCC AMSA Signed: 11/20/2023 13:01 Receipt Acknowledged By: 11/21/2023 10:01 /bienvenido/ MAXIMO HOFFMAN LPN LPN 11/20/2023 15:01 /es/ STEVEN DIAL RN REGISTERED NURSE BRANDON FLOYD [facility]
--- OUTSIDE RECORDS SUMMARY | 2024-02-17 09:34 | XMS_ITS ---
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 Address [address] [place] [address] Care Team Providers Care Post Adoption Coordinator Name Role Phone LEV OCONNELL Primary Care [...] PREFERRED PROVIDER ORGANIZAT ION (PPO) FED EMPLO [facility] Jan 26, 2020 [id number] ELIZABETH SMILEY JR PATIENT [employer] PREFERRED PROVIDER ORGANIZAT ION (PPO) DWAYNE AL EMPLO [facility] Feb 25, 2016 [id number] [phone] ELIZABETH SMILEY JR PATIENT AETNA PREFERRED PROVIDER ORGANIZAT ION (PPO) DWAYNE AL EMPL [facility] Feb 25, 2016 [id number] [phone] ELIZABETH SMILEY JR PATIENT A[employer] PREFERRED PROVIDER ORGANIZAT ION (PPO) DWAYNE AL EMPL [facility] Feb 25, 2016 [id number] ELIZABETH SMILEY PATIENT [employer] PREFERRED PROVIDER ORGANIZAT ION (PPO) DWAYNE AL MIO MIMI COOLEY Feb 24, 2016 [id number] ELIZABETH SMILEY PATIENT [employer] PHARMACY MANAGEMENT PRESCRIPT ION DWAYNE AL EMPLO MIMI Jan 26, 2020 [id number] ELIZABETH SMILEY JR PATIENT [employer] PHARMACY MANAGEMENT PRESCRIPT ION DAIANA Feb 25, 2016 [id number] ELIZABETH SMILEY PATIENT [employer] PHARMACY MANAGEMENT PRESCRIPT ION DWAYNE AL EMPLO MIMI Feb 25, 2016 [id number] ELIZABETH SMILEY PATIENT AET[employer] RX PRESCRIPT ION DWAYNE AL EMPLO MIMI Feb 25, 2016 [id number] ELIZABETH SMILEY PATIENT AETNA RX PRESCRIPT ION [facility] Feb 25, 2016 [id number] [phone] ELIZABETH SMILEY JR PATIENT [employer] POINT OF SERVICE [employer] Mar 20, 2002 [id number] ELIZABETH SMILEY PATIENT CIGNA* POINT OF SERVICE Mar 20, 2002 [id number] ELIZABETH SMILEY PATIENT Selected Encounter This section includes the information on record at [place] for the Encounter. Date/Time Encounter Type Encounter Description Reason Pro vider Source Sep 30, 2023 04:07 PM Outpatient Encounter EVENT (HISTORICAL) IHE Encounter Template [...] [place] [facility] [place] [facility] Nov 28, 2023 07:35 PM AMBULATORY - MEDICINE [place] [facility] [place] [facility] Dec 29, 2023 01:30 PM AMBULATORY - MEDICINE [place] [facility] [place] [facility] Jan 13, 2024 01:00 PM AMBULATORY - MEDICINE [place] [facility] [place] [facility] Mar 15, 2024 02:00 PM [...] 18, 2023 02:31 PM [facility] Tobacco Use History This section includes a history of the smoking, or tobacco-related health factors, that were collected on or before the date of the Encounter. The data comes from the [place] facility where the Encounter took place. Date/Time Smoking Status/Tobacco Use Comment F acility Feb 18, 2023 02:31 PM VA-TOBACCO QUIT 15 YRS OR MORE [place] [facility] [place] [place] [facility] Dec 31, 2021 01:00 PM VA-TOBACCO FORMER USER [place] [facility] [place] [place] [facility] Dec 31, 2021 01:00 PM VA-TOBACCO QUIT 15 YRS OR MORE [facility] Advance Directives: All historical and current [...] 02, 2022 [facility] Aug 07, 2021 ADVANCE DIRECTIVE RADHA SAHA [facility] IE Nov 28, 2020 ADVANCE DIRECTIVE GOLDIE DUTTA [facility] Encounter Notes: All associated encounter notes This section contains the clinical notes associated to the Encounter. Date/Time Encounter Note(s) Provider Source Sep 30, 2023 04:07 PM TELEHEALTH CONSULT : LOCAL TITLE: CONSULT REPORT/TELEDERMATOLOGY IMAGING REQUEST STANDARD TITLE: TELEHEALTH CONSULT DATE OF NOTE: SEP 30, 2023@16:07:05 ENTRY DATE: SEP 30, 2023@16:07:05 AUTHOR: JAYASHREE GRAJEDA EXP COSIGNER: URGENCY: STATUS: COMPLETED Please refer to Inter-facility Consult for results. Automatically generated note - signature not required. Electronically Filed: 09/30/2023 by: JAYASHREE COTTRELL [facility]
--- OUTSIDE RECORDS SUMMARY | 2024-02-17 09:34 | XMS_ITS | Encounter Summary ---
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 [place] Organization [place] Address [address] [place] [address] Care Team Providers Care Artist Blacksmith Name Role Phone LEV OCONNELL Primary Care [...] PREFERRED PROVIDER ORGANIZAT ION (PPO) FED EMPLO [facility] Jan 26, 2020 [id number] ELIZABETH SMILEY JR PATIENT [employer] PREFERRED PROVIDER ORGANIZAT ION (PPO) DWAYNE AL EMPLO [facility] Feb 25, 2016 [id number] ELIZABETH SMILEY JR PATIENT AETNA PREFERRED PROVIDER ORGANIZAT ION (PPO) DWAYNE AL EMPL [facility] Feb 25, 2016 [id number] [phone] ELIZABETH SMILEY JR PATIENT AETNA PREFERRED PROVIDER ORGANIZAT ION (PPO) DWAYNE AL EMPL [facility] Feb 25, 2016 [id number] ELIZABETH SMILEY PATIENT AETNA PREFERRED PROVIDER ORGANIZAT ION (PPO) DWAYNE MORALESO MIMI COOLEY Feb 24, 2016 [id number] ELIZABETH SMILEY PATIENT [employer] PHARMACY MANAGEMENT PRESCRIPT ION DWAYNE AL MIO MIMI COOLEY Jan 26, 2020 [id number] ELIZABETH SMILEY JR PATIENT AETNA PHARMACY MANAGEMENT PRESCRIPT ION [facility] Feb 25, 2016 [id number] ELIZABETH SMILEY PATIENT [employer] PHARMACY MANAGEMENT PRESCRIPT ION DWAYNE AL EMPLO MIMI Feb 25, 2016 [id number] ELIZABETH SMILEY PATIENT AETNA RX PRESCRIPT ION DWAYNE AL EMPLO MIMI COO[facility] Feb 25, 2016 [id number] ELIZABETH SMILEY PATIENT AETNA RX PRESCRIPT ION [facility] Feb 25, 2016 [id number] ELIZABETH SMILEY JR PATIENT [employer]NA POINT OF SERVICE [employer] Mar 20, 2002 [id number] ELIZABETH SMILEY PATIENT CIGNA* POINT OF SERVICE Mar 20, 2002 [id number] ELIZABETH SMILEY PATIENT Selected Encounter This section includes the information on record at [place] for the Encounter. Date/Time Encounter Type Encounter Description Reason Provider Source Sep 29, 2023 02:30 PM UNLISTED SPEC DERM SVC/PX DERMATOLOGY ICD-10-CM Z13.89 Encounter for screening for other disorder ALANNA RUANO [place] Encounter Template Text not used by [place] Assessments - Encounter Diagnoses This section includes the primary and secondary diagnoses documented for the Encounter. Date/Time Primary/Secondary Diagnosis Diagnosis Name Provider Source Oct 19, 2023 09:58 AM PRIMARY Encounter for screening for other disorder LISBETH RUANO [facility] Plan of Treatment: Future Appointments (+ 6 [...] 26, 2023 10:00 AM AMBULATORY - MEDICINE [facility] [place] [place] [facility] Nov 28, 2023 07:35 PM AMBULATORY - MEDICINE [facility] [place] [facility] Dec 29, 2023 01:30 PM AMBULATORY - MEDICINE [place] [facility] [place] [facility] Jan 13, 2024 01:00 PM AMBULATORY - MEDICINE [facility] [place] [facility] Mar 15, 2024 02:00 PM AMBULATORY - MEDICINE [facility] Social History: Smoking Status (Most current) [...] 08, 2021 01:30 PM VA-TOBACCO FORMER USER [facility] Tobacco Use History This section includes a history of the smoking, or tobacco-related health factors, that were collected on or before the date of the Encounter. The data comes from the [place] facility where the Encounter took place. Date/Time Smoking Status/Tobacco Use Comment F acility Jan 08, 2021 01:30 PM VA-TOBACCO QUIT 15 YRS OR MORE [facility] Jun 10, 2019 09:30 AM VA-TOBACCO FORMER USER [facility] Jun 10, 2019 09:30 AM VA-TOBACCO QUIT 15 YRS OR MORE [facility] Dec 04, 2017 11:51 AM VA-TOBACCO FORMER USER [facility] Dec 04, 2017 11:51 AM VA-TOBACCO QUIT 15 YRS OR MORE [facility] May 19, 2017 02:36 PM QUIT TOBACCO USE > 7 YEARS AGO [facility] May 15, 2016 10:07 AM QUIT TOBACCO USE > 7 YEARS AGO reports quitting 27 years ago [facility] Mar 21, 2015 02:13 PM QUIT TOBACCO USE > 7 YEARS AGO quit 04/11/1989, smoker 3 ppd x 10 yrs [facility] Oct 20, 2003 03:02 PM HISTORY OF SMOKING stopped tobacco 14 years ago [facility] Sep 14, 2002 09:25 AM HISTORY OF SMOKING quit 13 years ago [facility] Nov 25, 2001 10:54 AM QUIT TOBACCO USE > 7 YEARS AGO quit [facility] Sep 15, 2001 10:23 AM HISTORY OF SMOKING quit 12 years ago 04/11/1989 [facility] Advance Directives: All historical and current Section [...] July 02, 2022 ADVANCE DIRECTIVE SANDRA BROOKS [facility] Aug 07, 2021 AD[facility] DIRECT[facility] Nov 28, 2020 ADVANCE DIRECTIVE DUTTAGOLDIE MITCH [facility] IE Encounter Notes: All associated encounter notes This section contains the clinical notes associated to the Encounter. Date/Time Encounter Note(s) Provider Source Sep 29, 2023 03:10 PM TELEHEALTH CONSULT : LOCAL TITLE: CONSULT REPORT/TELEDERMATOLOGY IMAGING REQUEST STANDARD TITLE: TELEHEALTH CONSULT DATE OF NOTE: SEP 29, 2023@15:10 ENTRY DATE: SEP 29, 2023@15:10:56 AUTHOR: LESTER RUANO COSIGNER: URGENCY: STATUS: COMPLETED Teledermatology Consult Request The patient was educated regarding the Teledermatology process at this encounter. Comment: PATIENT EDUCATED ON TELEDERM PROCESS AND VERBALIZES UNDERSTANDING. Patient DOES consent to have images taken, viewed, and interpreted using the Teledermatology process. This consult addresses: A new condition Images were acquired: In clinic HISTORY: Prior skin history: None reported Have you had a skin cancer before? None Reported Patient reports no family history of melanoma. Taking new med/supplements: None reported Immunosuppression history: None reported Other significant history: Yes TYRIOD AND KIDNEY DISORDER AND TYPE 2 DIABETIC Chief Complaint: back hyperkeratotoc papula and left shoulder lesion. PROBLEM A LOCATION(S): Trunk:MID BACK (GREEN ARROW) DURATION: ABOUT 3 MONTH AGO SYMPTOMS: No Symptoms, MY JUST SAW IT ON MY BACK CHANGES: Shape SAME TREATMENT: No BIOPSY: No PROBLEM B: LOCATION(S): Trunk:RIGHT SIDE (BLUE ARROW) DURATION: ABOUT 2 MONTH AGO SYMPTOMS: No Symptoms CHANGES: None TREATMENT: No BIOPSY: No Diagnostic Radiologic Technologist's comments: IMAGED PER PROVIDER'S DIRECTION AND FACILITY PROTOCOL. /bienvenido/ LESTER RUANO TELEHEALTH CLINICAL TECHNIAN (TCT) Signed: 09/29/2023 16:07 LESTER RUANO
--- OUTSIDE RECORDS SUMMARY | 2024-02-17 09:34 | XMS_ITS | Encounter Summary ---
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 [facility] Address [address] [place] [address] Care Team Providers Care Pit Hand Name Role Phone LEV OCONNELL Primary Care [...] PREFERRED PROVIDER ORGANIZAT ION (PPO) FED EMPLO [facility] Jan 26, 2020 [id number] ELIZABETH SMILEY JR PATIENT [employer] PREFERRED PROVIDER ORGANIZAT ION (PPO) DWAYNE AL EMPLO [facility] Feb 25, 2016 [id number] [phone] ELIZABETH SMILEY JR PATIENT [employer] PREFERRED PROVIDER ORGANIZAT ION (PPO) DWAYNE AL EMPL [facility] Feb 25, 2016 [id number] ELIZABETH SMILEY JR PATIENT AETNA PREFERRED PROVIDER ORGANIZAT ION (PPO) DWAYNE AL EMPL [facility] Feb 25, 2016 [id number] ELIZABETH SMILEY PATIENT AETNA PREFERRED PROVIDER ORGANIZAT ION (PPO) DWAYNE AL EMPLO MIM[facility]OO[facility] Feb 24, 2016 [id number] ELIZABETH SMILEY PATIENT [employer]ETNA PHARMACY MANAGEMENT PRESCRIPT ION DWAYNE AL EMPLO M[facility] Jan 26, 2020 [id number] ELIZABETH SMILEY JR PATIENT [employer]ET[employer] PHARMACY MANAGEMENT PRESCRIPT ION [facility] Feb 25, 2016 [id number] ELIZABETH SMILEY PATIENT [employer]ET[employer] PHARMACY MANAGEMENT PRESCRIPT ION DWAYNE AL EMPLO MIMI Feb 25, 2016 [id number] ELIZABETH SMILEY PATIENT AETNA RX PRESCRIPT ION DWAYNE AL EMPLO [facility] Feb 25, 2016 [id number] ELIZABETH SMILEY PATIENT AETNA RX PRESCRIPT ION [facility] Feb 25, 2016 [id number] ELIZABETH SMILEY JR PATIENT [employer] POINT OF SERVICE [employer] Mar 20, 2002 [id number] ELIZABETH SMILEY PATIENT [employer]IG[employer]* POINT OF SERVICE Mar 20, 2002 [id number] ELIZABETH SMILEY PATIENT Selected Encounter This section includes the information on record at [place] for the Encounter. Date/Time Encounter Type Encounter Description Reason Provider Source Sep 30, 2023 04:02 PM Outpatient Encounter DERMATOLOGY ICD-10-CM L82.1 Other seborrheic keratosis CHARLIE GRAJEDA [facility] Encounter Template Text not used by [place] Assessments - Encounter Diagnoses This section includes the primary and secondary diagnoses documented for the Encounter. Date/Time Primary/Secondary Diagnosis Diagnosis Name Provider Source Sep 30, 2023 04:07 PM PRIMARY Other seborrheic keratosis CHARLIE GRAJEDA [facility] Plan of Treatment: Future Appointments (+ [...] 26, 2023 10:00 AM AM[place]ULATORY [place]IC[place] [place] [facility] Nov 28, 2023 07:35 PM AMBULATORY [facility] [place]ICINE [place] [place] [facility] Dec 29, 2023 01:30 PM AMBULATORY - [place]ICINE [place] [facility] [place] [facility] Jan 13, 2024 01:00 PM AMBULATORY - [place]ICINE [place] [facility] [place] [facility] Mar 15, 2024 02:00 PM [facility] Advance Directives: All historical and [...] Source July 02, 2022 ADVANCE DIRECTIVE SANDRA BROOKSI [place] Aug 07, 2021 ADVANCE DIRECTIVE RADHA SAHA [place] Nov 28, 2020 ADVANCE DIRECTIVE DUTTAMARLONGOLDIE MITCH [facility] [place] Encounter Notes: All associated encounter notes This section contains the clinical notes associated to the Encounter. Date/Time Encounter Note(s) Provider Source Sep 30, 2023 04:02 PM TELEIMAGING REPORT : LOCAL TITLE: CONSULT-TELEDERMATOLOGY IMAGING REPORT STANDARD TITLE: TELEIMAGING REPORT DATE OF NOTE: SEP 30, 2023@16:02 ENTRY DATE: SEP 30, 2023@16:02:22 AUTHOR: CHARLIE GRAJEDA COSIGNER: URGENCY: STATUS: COMPLETED HISTORY: 63-year-old man presents for evaluation of a lesion on the mid back and another that is listed as right side . These have been present for about 2 to 3 months and are asymptomatic. OVERALL CONSULT/IMAGE QUALITY: Satisfactory with suggestions for improvement in Consult states back and left shoulder, but photos were taken of the back and right scapula. EXAM: Photographs show a urbina, waxy, keratotic, stuck on appearing papule on the mid back and another on the right upper back AKA right scapula. IMPRESSION BASED ON IMAGES AND INFORMATION REVIEWED: PROBLEM A: Diagnosis: Seborrheic Keratosis PROBLEM B: Diagnosis: Seborrheic Keratosis RECOMMENDATIONS FOR REFERRING PROVIDER: PROBLEM A: Other recommendations: These are benign lesions and do not require treatment PROBLEM B: Other recommendations: These are benign lesions and do not require treatment PROBLEM C: Additional Information: There were no photos taken of the left shoulder. If there is a lesion on the left shoulder, then patient should be brought back for photography of that lesion and a new consult sent in. RECOMMENDED FOLLOW-UP: Reconsult by Teledermatology SHEBA: Routine Cumulative time of review and management: 5 minutes or more /bienvenido/ Charlie Grajeda PA-C Dermatology Signed: 09/30/2023 16:07 CHARLIE GRAJEDA [facility]
--- OUTSIDE RECORDS SUMMARY | 2024-02-17 09:34 | XMS_ITS | Encounter Summary ---
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 [place] Address [address] [place] [address] Care Team Providers Care Industrial Relations Analyst Name Role Phone LEV OCONNELL Primary Care [...] (PPO) FED EMPLO YE Jan 26, 2020 [id number] ELIZABETH SMILEY JR PATIENT [employer] PREFERRED PROVIDER ORGANIZAT ION (PPO) DWAYNE AL EMPLO YE Feb 25, 2016 [id number] ELIZABETH SMILEY JR PATIENT [employer] PREFERRED PROVIDER ORGANIZAT ION (PPO) DWAYNE AL EMPL [facility] Feb 25, 2016 [id number] ELIZABETH SMILEY JR PATIENT AETNA PREFERRED PROVIDER ORGANIZAT ION (PPO) DWAYNE AL EMPL [facility] Feb 25, 2016 [id number] ELIZABETH SMILEY PATIENT A[employer]NA PREFERRED PROVIDER ORGANIZAT ION (PPO) DWAYNE AL EMPLO MIMI COOLEY Feb 24, 2016 [id number] ELIZABETH SMILEY PATIENT AETNA PHARMACY MANAGEMENT PRESCRIPT ION DWAYNE AL EMPLO IMMI COOLEY Jan 26, 2020 [id number] ELIZABETH SMILEY JR PATIENT [employer]ET[employer] PHARMACY MANAGEMENT PRESCRIPT ION DAIANA Feb 25, 2016 [id number] ELIZABETH SMILEY PATIENT AETNA PHARMACY MANAGEMENT PRESCRIPT ION DWAYNE AL EMPLO MIMI Feb 25, 2016 [id number] ELIZABETH SMILEY PATIENT AETNA RX PRESCRIPT ION DWAYNE AL EMPLO MIMI Feb 25, 2016 [id number] ELIZABETH SMILEY PATIENT AETNA RX PRESCRIPT ION [facility] Feb 25, 2016 [id number] BALJIT BELCHERELIZABETH PATIENT [employer]IGNA POINT OF SERVICE [employer] Mar 20, 2002 [id number] ELIZBAETH SMILEY PATIENT CIGNA* POINT OF SERVICE Mar 20, 2002 [id number] BALJIT ELIZABETH PATIENT Selected Encounter This section includes the information on record at [place] for the Encounter. Date/Time Encounter Type Encounter Description Reason Pro vider Source Oct 01, 2023 11:43 AM Outpatient Encounter ADMIN PAT ACTIVTIES (MASNONCT) [...] - MEDICINE [place] [facility] Nov 28, 2023 07:35 PM AMBULATORY - MEDICINE [place] [facility] Dec 29, 2023 01:30 PM AMBULATORY - MEDICINE [place] [facility] Jan 13, 2024 01:00 PM AMBULATORY - MEDICINE [place] [facility] Mar 15, 2024 02:00 PM AMBULATORY - MEDICINE [facility] Social History: Smoking Status (Most [...] 18, 2023 02:31 PM VA-TOBACCO FOR[facility]ER [place] [facility] Tobacco Use History This section includes a history of the smoking, or tobacco-related health factors, that were collected on or before the date of the Encounter. The data comes from the [place] facility where the Encounter took place. Date/Time Smoking Status/Tobacco Use Comment F acility Feb 18, 2023 02:31 PM VA-TOBACCO QUIT 15 YRS OR MORE [place] [facility] [facility] Dec 31, 2021 01:00 PM VA-TOBACCO FORMER USER [place] [facility] Dec 31, 2021 01:00 PM VA-TOBACCO QUIT 15 YRS OR MORE [place] [facility] Advance Directives: All historical and current Section Date Range: From patient's date of to the date document was created. This section includes ALL of a patient's completed or amended [place] Advance and Rescinded Directives. The entries below indicate that a directive exists for the patient, but an actual copy is not included with this document. The data comes from all [place] facilities. Date Advance Directives Provider Source July 02, 2022 ADVANCE DIRECTIVE SANDRA BROOKS [facility] Aug 07, 2021 ADVANCE DIRECTIVE RADHA SAHA IE Nov 28, 2020 ADVANCE DIRECTIVE GOLDIE DUTTA [facility] Encounter Notes: All associated encounter notes This section contains the clinical notes associated to the Encounter. Date/Time Encounter Note(s) Provider Source Oct 01, 2023 11:43 AM TELEHEALTH NOTE: LOCAL TITLE: PATIENT NOTIFICATION TELEHEALTH RESULTS STANDARD TITLE: TELEHEALTH NOTE DATE OF NOTE: OCT 01, 2023@11:43 ENTRY DATE: OCT 01, 2023@11:44:11 AUTHOR: LESTER RUANO EXP COSIGNER: URGENCY: STATUS: COMPLETED Provider, please note dx and treatment recommendations for this patient imaged on 09/29/2023 Requesting Provider is responsible for recommended treatment or procedures and patient notification within 7 to 14 days. Thank you REMOTE RESULTS VARUN Document from: [facility] Associated on: Sep 30, 2023@16:07:05 LOCAL TITLE: CONSULT-TELEDERMATOLOGY IMAGING REPORT STANDARD TITLE: TELEIMAGING REPORT DATE OF NOTE: SEP 30, 2023@16:02 ENTRY DATE: SEP 30, 2023@16:02:22 AUTHOR: CHARLIE GRAJEDA EXP COSIGNER: URGENCY: STATUS: COMPLETED HISTORY: 63-year-old man [...] Charlie Grajeda PA-C Dermatology Signed: 09/30/2023 16:07 END OF REMOTE RESULTS /bienvenido/ LESTER RUANO TELEHEALTH CLINICAL TECHNIAN (TCT) Signed: 10/01/2023 12:51 Receipt Acknowledged By: 10/17/2023 09:23 /es/ BESSIE WALLACE NP NURSE PRACTITIONER for LEV OCONNELL 10/26/2023 10:07 /es/ KATRINA LOPESN,RN-BC REGISTERED NURSE (RN) for [facility]EV[facility]
--- OUTSIDE RECORDS SUMMARY | 2024-02-17 09:34 | XMS_ITS ---
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 Address [address] [place] [address] Care Team Providers Care Record Changer Tester Name Role Phone LEV OCONNELL Primary Care [...] (PPO) FED EMPLO YEES Jan 26, 2020 [id number] ELIZABETH SMILEY JR PATIENT AETNA PREFERRED PROVIDER ORGANIZAT ION (PPO) DWAYNE AL EMPL [facility] Feb 25, 2016 [id number] ELIZABETH SMILEY JR PATIENT AETNA PREFERRED PROVIDER ORGANIZAT ION (PPO) DWAYNE AL EMPL [facility] Feb 25, 2016 [id number] ELIZABETH SMILEY PATIENT AETNA PREFERRED PROVIDER ORGANIZAT ION (PPO) DWAYNE AL EMPLO YE Feb 25, 2016 [id number] BALJITELIZABETH SCANLON JR PATIENT AETNA PREFERRED PROVIDER ORGANIZAT ION (PPO) DWAYNE SILVA Feb 24, 2016 [id number] ELIZABETH SMILEY PATIENT AETNA PHARMACY MANAGEMENT PRESCRIPT ION DWAYNE SILVA Jan 26, 2020 [id number] ELIZABETH SMILEY JR PATIENT AETNA PHARMACY MANAGEMENT PRESCRIPT ION DAIANA Feb 25, 2016 [id number] ELIZABETH SMILEY PATIENT AETNA PHARMACY MANAGEMENT PRESCRIPT ION DWAYNE PIERCE Feb 25, 2016 [id number] ELIZABETH SMILEY PATIENT AETNA RX PRESCRIPT ION DWAYNE SILVA Feb 25, 2016 [id number] ELIZABETH SMILEY PATIENT AETNA RX PRESCRIPT ION [facility] Feb 25, 2016 [id number] BALJIT ELIZABETH BELCHER PATIENT CIGNA POINT OF SERVICE TYCO Mar 20, 2002 [id number] ELIZABETH SMILEY PATIENT CIGNA* POINT OF SERVICE Mar 20, 2002 [id number] ELIZABETH SMILEY PATIENT Selected Encounter This section includes the information on record at [place] for the Encounter. Date/Time Encounter Type Encounter Description Reason Pro vider Source Jun 04, 2023 12:00 AM Outpatient Encounter COMMUNITY CARE CONSULT IHE Encounter Template Text not used by [place] Plan of Treatment: Future Appointments (+ 6 months) and Future Tests (+/- 45 days) The Plan of Treatment section includes future care activities for the patient from all [place] treatmentfacilities. This section includes future appointments and future orders which are active, pending or scheduled. Future Appointments This section includes appointments that were scheduled to occur 6 months from the date of the Encounter, up to a maximum of 20 appointments. The data comes from all [place] treatment facilities. Appointment Date/Time Appointment Type Appointme nt Facility Name June 24, 2023 03:00 PM AMBULATORY - NONE [place] [facility] [place] [facility] Aug 08, 2023 03:00 PM AMBULATORY - MEDICINE [place] [facility] Aug 13, 2023 03:10 PM AMBULATORY - MEDICINE [place] [facility] Sep 04, 2023 01:30 PM [facility] Sep 29, 2023 02:30 PM AMBULATORY - NONE [place] [facility] [place] [facility] Nov 26, 2023 10:00 AM AMBULATORY - MEDICINE [place] [facility] Nov 28, 2023 07:35 PM AMBULATORY - MEDICINE [facility] Lab Results: +/- 30 days of the encounter This section includes the Chemistry and Hematology Lab Results on record with [place] for the patient. Radiology Reports and Pathology Reports are provided separately, in subsequent sections. Lab Results This section contains the Chemistry/Hematology Results that were resulted 30 days before or 30 daysafter the date of the Encounter. Date/Time Source Result Type Result - Unit Interpretation Reference Range Comment June 18, 2023 07:38 AM [facility] THYROID T4 FREE(FT4) (WROX) Specimen Type: SERUM No comment entered. Ordering Provider: LEV LIZAMA Report Released Date/Time: Jun 16, 2023 11:42 AM Reporting Lab: [facility] [address] [address] Performing Lab: [facility] [address] [address] THYROID T4 FREE(FT4) (WROX) 1.50 ng/dL 0.6-1.6 June 18, 2023 07:38 AM [facility] HEMOGLOBIN A1C PANEL Specimen Type: BLOOD Comment: [...] 11:42 AM Reporting Lab: [facility] [place] [facility] [address] [address] Performing Lab: [facility] [address] [address] HEMOGLOBIN A1C 7.4 H 4.0-5.6 June 18, 2023 07:38 AM [facility] TSH Specimen Type: SERUM No comment entered. Ordering Provider: LEV LIZAMA Report Released Date/Time: Jun 16, 2023 11:42 AM Reporting Lab: [facility] [address] [address] Performing Lab: [facility] [address] [address] TSH 0.33 u[IU]/mL L 0.35-5.00 Social History: Smoking Status (Most current) and Tobacco Use (All prior to encounter date) This section includes the most current, and the historical, smoking and tobacco- related health factors from the [place] facility where the Encounter took place. Current Smoking Status This section includes the most current smoking, or tobacco-related health factor, from the [place] facility where the Encounter took place. Date/Time Current Smoking Status Comment Corina ity Feb 18, 2023 02:31 PM VA-TOBACCO QUIT 15 YRS OR MORE [facility] Tobacco Use History This section includes a history of the smoking, or tobacco-related health factors, that were collected on or before the date of the Encounter. The data comes from the [place] facility where the Encounter took place. Date/Time Smoking Status/Tobacco Use Comment F acility Feb 18, 2023 02:31 PM VA-TOBACCO QUIT 15 YRS OR MORE [facility] [place] [facility] Dec 31, 2021 01:00 PM VA-TOBACCO FORMER USER [place] [facility] Dec 31, 2021 01:00 PM VA-TOBACCO QUIT [facility] YRS OR [facility] Advance Directives: All historical and current Section Date Range: From patient's date of to the date document was created. This section includes ALL of a patient's completed or amended [place] Advance and Rescinded Directives. The entries below indicate that a directive exists for the patient, but an actual copy is not included with this document. The data comes from all [place] facilities. Date Advance Directives Provider Source July 02, 2022 ADVANCE DIRECTIVE CECILIASANDRA [facility]EN [facility] [place] Aug 07, 2021 ADVANCE DIRECTIVE SAHARADHA [facility] [place] Nov 28, 2020 ADVANCE DIRECTIVE GOLDIE DUTTA [facility] [place] Encounter Notes: All associated encounter notes This section contains the clinical notes associated to the Encounter. Date/Time Encounter Note(s) Provider Source Jun 04, 2023 12:00 AM NONVA CONSULT: LOCAL TITLE: COMMUNITY CARE-CONSULT RESULT NOTE STANDARD TITLE: NONVA CONSULT DATE OF NOTE: JUN 04, 2023 ENTRY DATE: OCT 22, 2023@13:14:23 AUTHOR: SANJIV IQBAL EXP COSIGNER: URGENCY: STATUS: COMPLETED VistA Imaging - Scanned Document SCANNED DOCUMENT SIGNATURE NOT REQUIRED Electronically Filed: 10/22/2023 by: SANJIV CAUSEY [facility]
--- OUTSIDE RECORDS SUMMARY | 2024-02-17 09:34 | XMS_ITS | Encounter Summary ---
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 [facility] Address [address] [place] [address] Care Team Providers Care Iso Coordinator Name Role Phone LEV OCONNELL Primary [...] PREFERRED PROVIDER ORGANIZAT ION (PPO) FED EMPLO [facility] Jan 26, 2020 [id number] ELIZABETH SMILEY JR PATIENT AETNA PREFERRED PROVIDER ORGANIZAT ION (PPO) DWAYNE AL EMPLO [facility] Feb 25, 2016 [id number] ELIZABETH SMILEY JR PATIENT AETNA PREFERRED PROVIDER ORGANIZAT ION (PPO) DWAYNE AL EMPL [facility] Feb 25, 2016 [id number] [phone] ELIZABETH SMILEY JR PATIENT AETNA PREFERRED PROVIDER ORGANIZAT ION (PPO) DWAYNE AL EMPL [facility] Feb 25, 2016 [id number] ELIZABETH SMILEY PATIENT AETNA PREFERRED PROVIDER ORGANIZAT ION (PPO) DWAYNE AL MIO MIMI COOLEY Feb 24, 2016 [id number] ELIZABETH SMILEY PATIENT AETNA PHARMACY MANAGEMENT PRESCRIPT ION DWAYNE AL EMPLO MIMI Jan 26, 2020 [id number] ELIZABETH SMILEY JR PATIENT AETNA PHARMACY MANAGEMENT PRESCRIPT ION DAIANA Feb 25, 2016 [id number] ELIZABETH SMILEY PATIENT AETNA PHARMACY MANAGEMENT PRESCRIPT ION DWAYNE AL EMPLO MIMI Feb 25, 2016 [id number] ELIZABETH SMILEY PATIENT AETNA RX PRESCRIPT ION DWAYNE AL EMPLO MIMI Feb 25, 2016 [id number] ELIZABETH SMILEY PATIENT [facility]ETNA RX [facility]CRIPT [facility] Feb 25, 2016 [id number] ELIZABETH SMILEY JR PATIENT CIGNA POINT OF SERVICE [employer] Mar 20, 2002 [id number] ELIZABETH SMILEY PATIENT CIGNA* POINT OF SERVICE Mar 20, 2002 [id number] ELIZABETH SMILEY PATIENT Selected Encounter This section includes the information on record at [place] for the Encounter. Date/Time Encounter Type Encounter Description Reason Pro vider Source Nov 05, 2023 08:17 AM Outpatient Encounter PRIMARY CARE/MEDICINE IHE Encounter [...] - MEDICINE [place] [facility] Nov 28, 2023 07:35 PM AMBULATORY - MEDICINE [place] [facility] Dec 29, 2023 01:30 PM AMBULATORY - MEDICINE [place] [facility] Jan 13, 2024 01:00 PM AMBULATORY - MEDICINE [place] [facility] Mar 15, 2024 02:00 PM AMBULATORY [...] 18, 2023 02:31 PM [facility]ACCO [facility] Tobacco Use History This section includes a history of the smoking, or tobacco-related health factors, that were collected on or before the date of the Encounter. The data comes from the [place] facility where the Encounter took place. Date/Time Smoking Status/Tobacco Use Comment F acility Feb 18, 2023 02:31 PM VA-TOBACCO QUIT 15 YRS OR MORE [place] [facility] Dec 31, 2021 01:00 PM VA-TOBACCO FORMER USER [place] [facility] Dec 31, 2021 01:00 PM VA-TOBACCO QUIT 15 YRS OR MORE [facility] Advance Directives: All historical and current [...] July 02, 2022 ADVANCE DIRECTIVE [facility] Aug 07, 2021 ADVANCE DIRECTIVE RAD[facility] SAHA [facility] Nov 28, 2020 ADVANCE DIRECTIVE GOLDIE DUTTA [facility] Encounter Notes: All associated encounter notes This section contains the clinical notes associated to the Encounter. Date/Time Encounter Note(s) Provider Source Nov 05, 2023 08:17 AM PRIMARY CARE SECNAPOLEON E MESSAGING: LOCAL TITLE: PRIMARY CARE SECURE MESSAGING STANDARD TITLE: PRIMARY CARE SECURE MESSAGING DATE OF NOTE: NOV 05, 2023@08:17 ENTRY DATE: NOV 05, 2023@08:17:34 AUTHOR: ABEBE JOHNSON EXP COSIGNER: URGENCY: STATUS: COMPLETED PRIMARY CARE SECURE MESSAGING Has ADDENDA ------Original Message ------ Sent: 11/04/2023 06:02 PM ET From: ELIZABETH SMILEY To: RAINA OCONNELL [facility] Subject: Appointment:Referral Request for Neurology I am requesting a referral to see the Neurologist listed below, as Dr. Ramos has retired and there is no current Neurologist in [facility] within the [place] system: Dr. Murray Neuro[facility]Surgery at [facility] [phone] I was informed that prior to being seen I will need a new MRI of my L5-S1 as it has been over 12 months since my last MRI. Not sure who would schedule this, the [place] or Dr. Murray. Please advise how we move forward as I would like to be seen as soon as possible. /bienvenido/ ABEBE MENESES Signed: 11/05/2023 08:17 Receipt Acknowledged By: 11/07/2023 15:33 /es/ MAXIMO HOFFMAN LPN LPN 11/06/2023 13:04 /bienvenido/ STEVEN DIAL RN REGISTERED NURSE 11/06/2023 ADDENDUM STATUS: COMPLETED Referral placed and held for PCP signature if appropriate. Spoke with . Advised he reaches out to the neurologist office to determine if they are willing to order the MRI once the consult is process. If not, PCP would order the MRI. verbalized understanding. /bienvenido/ STEVEN DIAL RN REGISTERED NURSE Signed: 11/06/2023 13:03 ABEBE JOHNSON [place] [facility]
--- OUTSIDE RECORDS SUMMARY | 2024-02-17 09:34 | XMS_ITS ---
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 Organization [facility] Address [address] [place] [address] Care Team Providers Care Lap Polisher Name Role Phone LEV OCONNELL Primary Care [...] PREFERRED PROVIDER ORGANIZAT ION (PPO) FED EMPLO [facility] Jan 26, 2020 [id number] ELIZABETH SMILEY JR PATIENT AETNA PREFERRED PROVIDER ORGANIZAT ION (PPO) DWAYNE AL EMPLO [facility] Feb 25, 2016 [id number] ELIZABETH SMILEY JR PATIENT AETNA PREFERRED PROVIDER ORGANIZAT ION (PPO) DWAYNE AL EMPL [facility] Feb 25, 2016 [id number] ELIZABETH SMILEY JR PATIENT AETNA PREFERRED PROVIDER ORGANIZAT ION (PPO) DWAYNE AL EMPL [facility] Feb 25, 2016 [id number] ELIZABETH SMILEY PATIENT AETNA PREFERRED PROVIDER ORGANIZAT ION (PPO) DWAYNE AL EMPLO MIMI COOLEY Feb 24, 2016 [id number] ELIZABETH SMILEY PATIENT AETNA PHARMACY MANAGEMENT PRESCRIPT ION DWAYNE AL EMPLO MIMI Jan 26, 2020 [id number] ELIZABETH SMILEY JR PATIENT AETNA PHARMACY MANAGEMENT PRESCRIPT ION DAIANA Feb 25, 2016 [id number] ELIZABETH SMILEY PATIENT AETNA PHARMACY MANAGEMENT PRESCRIPT ION DWAYNE AL EMPLO MIMI Feb 25, 2016 [id number] ELIZABETH SMILEY PATIENT AETNA RX PRESCRIPT ION DWAYNE AL EMPLO MIMI Feb 25, 2016 [id number] ELIZABETH SMILEY PATIENT AETNA RX [facility]CRIPT [facility] Feb 25, 2016 [id number] ELIZABETH SMILEY JR PATIENT CIGNA POINT OF SERVICE [employer] Mar 20, 2002 [id number] ELIZABETH SMILEY PATIENT CIGNA* POINT OF SERVICE Mar 20, 2002 [id number] ELIZABETH SMILEY PATIENT Selected Encounter This section includes the information on record at [place] for the Encounter. Date/Time Encounter Type Encounter Description Reason Pro vider Source Oct 15, 2023 08:49 PM Outpatient Encounter PRIMARY CARE/MEDICINE IHE Encounter [...] - MEDICINE [place] [facility] Nov 28, 2023 07:35 PM AMBULATORY - MEDICINE [place] [facility] Dec 29, 2023 01:30 PM AMBULATORY - MEDICINE [place] [facility] Jan 13, 2024 01:00 PM AMBULATORY - MEDICINE [place] [facility] Mar 15, 2024 02:00 PM AMBULATORY - MEDICINE [facility] Social History: Smoking Status (Most [...] 18, 2023 02:31 PM [facility]ACCO [facility] Tobacco Use History This section includes a history of the smoking, or tobacco-related health factors, that were collected on or before the date of the Encounter. The data comes from the [place] facility where the Encounter took place. Date/Time Smoking Status/Tobacco Use Comment F acility Feb 18, 2023 02:31 PM VA-TOBACCO QUIT 15 YRS OR MORE [place] [facility] [facility] Dec 31, 2021 01:00 PM VA-TOBACCO FORMER USER [place] [facility] Dec 31, 2021 01:00 PM VA-TOBACCO QUIT 15 YRS OR MORE [facility] Advance Directives: All historical and current Section Date Range: From patient's date of to the date document was created. This section includes ALL of a patient's completed or amended [place] Advance and Rescinded Directives. The entries below indicate that a directive exists for the patient, but an actual copy is not included with this document. The data comes from all [place] facilities. Date Advance Directives Provider Source July 02, 2022 ADVANCE DIRECT[facility] Aug 07, 2021 ADVANCE DIRECTIVE RADHA SAHA [facility] IE Nov 28, 2020 ADVANCE DIRECTIVE GOLDIE DUTTA [facility] Encounter Notes: All associated encounter notes This section contains the clinical notes associated to the Encounter. Date/Time Encounter Note(s) Provider Source Oct 15, 2023 07:49 AM PRIMARY CARE SECUR E MESSAGING: LOCAL TITLE: PRIMARY CARE SECURE MESSAGING STANDARD TITLE: PRIMARY CARE SECURE MESSAGING DATE OF NOTE: OCT 15, 2023@07:49 ENTRY DATE: OCT 15, 2023@08:49:53 AUTHOR: EDUARDO OHARA COSIGNER: URGENCY: STATUS: COMPLETED PRIMARY CARE SECURE MESSAGING Has ADDENDA ------Original Message ----- Sent: 10/13/2023 06:05 PM ET From: ELIZABETH SMILEY To: Adriane OCONNELL_[facility] Subject: Appointment:Dermatology follow up I am sending this message, because I was told at my appointment on Thursday 09/28, that I would hear back within a week. It has been two weeks with no updates. Please advise! /bienvenido/ EDUARDO MENESES Signed: 10/15/2023 08:49 Receipt Acknowledged By: 10/17/2023 09:43 /bienvenido/ MAXIMO HOFFMAN LPN LPN 10/21/2023 16:26 /bienvenido/ STEVEN DIAL RN REGISTERED NURSE 10/17/2023 ADDENDUM STATUS: COMPLETED contacted and advised of results - Seborrheic Keratosis - no treatment necessary, notify us if it starts to itch or gets painful, he verblaized understanding. /bienvenido/ MAXIMO HOFFMAN LPN LPN Signed: 10/17/2023 09:43 EDUARDO OHARA [facility]TRL [facility]
--- OUTSIDE RECORDS SUMMARY | 2024-02-17 09:34 | XMS_ITS | Encounter Summary ---
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 Address [address] [place] [address] Care Team Providers Care Vice President Research Name Role Phone LEV OCONNELL Primary Care [...] (PPO) FED EMPLO YE Jan 26, 2020 [id number] [phone] ELIZABETH SMILEY JR PATIENT [employer] PREFERRED PROVIDER ORGANIZAT ION (PPO) DWAYNE AL EMPLO YE Feb 25, 2016 [id number] ELIZABETH SMILEY JR PATIENT AETNA PREFERRED PROVIDER ORGANIZAT ION (PPO) DWAYNE AL EMPL [facility] Feb 25, 2016 [id number] [phone] ELIZABETH SMILEY JR PATIENT AETNA PREFERRED PROVIDER ORGANIZAT ION (PPO) DWAYNE AL EMPL HL Feb 25, 2016 [id number] ELIZABETH SMILEY PATIENT AETNA PREFERRED PROVIDER ORGANIZAT ION (PPO) DWAYNE AL EMPLO MIMI COOLEY Feb 24, 2016 [id number] ELIZABETH SMILEY PATIENT AETNA PHARMACY MANAGEMENT PRESCRIPT ION DWAYNE AL EMPLO MIMI COOLEY Jan 26, 2020 [id number] ELIZABETH SMILEY JR PATIENT AETNA PHARMACY MANAGEMENT PRESCRIPT ION DAIANA Feb 25, 2016 [id number] ELIZABETH SMILEY PATIENT AETNA PHARMACY MANAGEMENT PRESCRIPT ION DWAYNE AL EMPLO MIMI Feb 25, 2016 [id number] ELIZABETH SMILEY PATIENT AETNA RX PRESCRIPT ION DWAYNE AL EMPLO MIMI Feb 25, 2016 [id number] ELIZABETH SMILEY PATIENT AETNA RX PRESCRIPT ION [facility] Feb 25, 2016 [id number] BALJIT BELCHERELIZABETH PATIENT CIGNA POINT OF SERVICE TYCO Mar 20, 2002 [id number] ELIZABETH SMILEY PATIENT CIGNA* POINT OF SERVICE Mar 20, 2002 [id number] BALJIT ELIZABETH PATIENT Selected Encounter This section includes the information on record at [place] for the Encounter. Date/Time Encounter Type Encounter Description Reason Pro vider Source Nov 19, 2023 02:47 PM Outpatient Encounter ADMIN PAT ACTIVTIES (MASNONCT) [...] - MEDICINE [place] [facility] [place] [facility] Nov 28, 2023 07:35 PM AMBULATORY - MEDICINE [place] [facility] [facility] Dec 29, 2023 01:30 PM AMBULATORY - MEDICINE [place] [facility] [facility] Jan 13, 2024 01:00 PM AMBULATORY - MEDICINE [place] [facility] [place] [facility] Mar 15, 2024 02:00 PM AMBULATORY - MEDICINE [facility] Social History: Smoking Status (Most current) [...] 18, 2023 02:31 PM VA-TOBACCO FORMER USER [place] [facility] Tobacco Use History This section includes a history of the smoking, or tobacco-related health factors, that were collected on or before the date of the Encounter. The data comes from the [place] facility where the Encounter took place. Date/Time Smoking Status/Tobacco Use Comment F acility Feb 18, 2023 02:31 PM VA-TOBACCO QUIT 15 YRS OR MORE [place] [facility] [facility] Dec 31, 2021 01:00 PM VA-TOBACCO FORMER USER [place] [facility] [facility] Dec 31, 2021 01:00 PM VA-TOBACCO QUIT 15 YRS OR MORE [place] [facility] Advance Directives: All historical and current [...] Nov 28, 2020 ADVANCE DIRECTIVE GOLDIE DUTTA [facility] IE Encounter Notes: All associated encounter notes This section contains the clinical notes associated to the Encounter. Date/Time Encounter Note(s) Provider Source Nov 19, 2023 02:47 PM ADMINISTRATIVE NOTE: LOCAL TITLE: CCC: SCHEDULING ADMINISTRATION STANDARD TITLE: ADMINISTRATIVE NOTE DATE OF NOTE: NOV 19, 2023@14:47:16 ENTRY DATE: NOV 19, 2023@14:47:17 AUTHOR: MURPHY SARMIENTO COSIGNER: URGENCY: STATUS: COMPLETED CCC: SCHEDULING ADMINISTRATION Has ADDENDA Patient Demographics Patient Name: ELIZABETH SMILEY JR Patient Primary Phone: [phone] Patient Primary Address: [address] [place] [address] [place] [address] Patient : 1960 Patient Age: 63 Caller/Recipient Relation to Patient: Self Administrative Administrative Note Reason: Other Administrative Note Comments: Vet called for an update on his Dr Murray referral please reach out to the vet [phone] IMPORTANT: This note was created by [facility] Clinical Contact Center staff. Please do not alert the staff member by adding them as a signer for future communications. Alerts are not monitored by this user. /bienvenido/ MURPHY SARMIENTO visn1 ccc amsa Signed: 11/19/2023 14:47 Receipt Acknowledged By: 11/24/2023 08:25 /bienvenido/ MAXIMO HOFFMAN LPN LPN 11/25/2023 16:25 /bienvenido/ STEVEN DIAL RN REGISTERED NURSE 11/21/2023 ADDENDUM STATUS: COMPLETED Spoke with . [place] aware covering provider would be placing order for MRI before Neurosurgery can be processed. Verbalized understanding. /bienvenido/ STEVEN DIAL RN REGISTERED NURSE Signed: 11/21/2023 13:36 MURPHY SARMIENTO [place] [facility]
--- OUTSIDE RECORDS SUMMARY | 2024-02-17 09:35 | XMS_ITS ---
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 Address [address] [place] [address] Care Team Providers Care Sanitary Aide Name Role Phone LEV OCONNELL Primary Care [...] (PPO) FED EMPLO YEES Jan 26, 2020 [id number] ELIZABETH SMILEY JR PATIENT AETNA PREFERRED PROVIDER ORGANIZAT ION (PPO) DWAYNE AL EMPLO YEES Feb 25, 2016 [id number] [phone] ELIZABETH SMILEY JR PATIENT AETNA PREFERRED PROVIDER ORGANIZAT ION (PPO) DWAYNE AL EMPL [facility] Feb 25, 2016 [id number] ELIZABETH SMILEY JR PATIENT AETNA PREFERRED PROVIDER ORGANIZAT ION (PPO) DWAYNE AL EMPL HL Feb 25, 2016 [id number] [phone] ELIZABETH SMILEY PATIENT AETNA PREFERRED PROVIDER ORGANIZAT ION (PPO) DWAYNE AL EMPLO MIMI COOLEY Feb 24, 2016 [id number] ELIZABETH SMILEY PATIENT AETNA PHARMACY MANAGEMENT PRESCRIPT ION DWAYNE AL EMPLO MIMI COOLEY Jan 26, 2020 [id number] ELIZABETH SMILEY JR PATIENT AETNA PHARMACY MANAGEMENT PRESCRIPT ION AL[place] Feb 25, 2016 [id number] [phone] ELIZABETH SMILEY PATIENT AETNA PHARMACY MANAGEMENT PRESCRIPT ION DWAYNE AL EMPLO MIMI Feb 25, 2016 [id number] ELIZABETH SMILEY PATIENT AETNA RX PRESCRIPT ION DWAYNE AL EMPLO MIMI Feb 25, 2016 [id number] ELIZABETH SMILEY PATIENT AETNA RX PRESCRIPT [facility]ON [facility] Feb 25, 2016 [id number] [phone] ELIZABETH SMILEY JR PATIENT CIGNA POINT OF SERVICE TYCO Mar 20, 2002 [id number] ELIZABETH SMILEY PATIENT CIGNA* POINT OF SERVICE Mar 20, 2002 [id number] ELIZABETH SMILEY PATIENT Selected Encounter This section includes the information on record at [place] for the Encounter. Date/Time Encounter Type Encounter Description Reason Provider Source Dec 22, 2023 07:22 AM COLLJ & INTERPJ DATA EA 30 D TELEPHONE/MEDICIN E ICD-10-CM G47.30 Sleep apnea, unspecified FRANSICO MCNALLY E Encounter Template Text not used by [place] Assessments - Encounter Diagnoses This section includes the primary and secondary diagnoses documented for the Encounter. Date/Time Primary/Secondary Diagnosis Diagnosis Name Provider Source Dec 22, 2023 07:22 AM PRIMARY Sleep apnea, unspecified FRANSICO MCNALLY [place] [facility] Plan of Treatment: Future Appointments (+ 6 months) and Future Tests (+/- 45 days) The Plan of Treatment section includes future care activities for the patient [facility] [place] [facility] This section includes future appointments and future orders which are active, pending or scheduled. Future Appointments This section includes appointments that were scheduled to occur 6 months from the date of the Encounter, up to a maximum of 20 appointments. The data comes from all [place] treatment facilities. Appointment Date/Time Appointment Type Appointme nt Facility Name Dec 29, 2023 01:30 PM AMBULATORY - MEDICINE [place] [facility] Jan 13, 2024 01:00 PM AMBULATORY - MEDICINE [place] [facility] Mar 15, 2024 02:00 PM AMBULATORY - MEDICINE [facility] Active, Pending, and Scheduled Orders This section includes a listing of several types of active, pending, and scheduled orders, including clinic medications orders, diagnostic test orders, procedure orders and consult orders; where the start date of the order is 45 days before the date of the Encounter or 45 days after the date of theEncounter. The data comes from all [facility] facilities. Test Date/Time Test Type Test Details Facility Name Jan 10, 2024 10:02 PM Consult Order [facility] Cons [facility] Social History: Smoking Status (Most current) and Tobacco Use (All prior to encounter date) This section includes the most current, and the historical, smoking and tobacco- related health factors from the [place] facility where the Encounter took place. Current Smoking Status This section includes the most current smoking, or tobacco-related health factor, from the [place] facility where the Encounter took place. Date/Time Current Smoking Status Comment Facil ity Feb 18, 2023 02:31 PM [facility] Tobacco Use History This section includes a history of the smoking, or tobacco-related health factors, that were collected on or before the date of the Encounter. The data comes from the [place] facility where the Encounter took place. Date/Time Smoking Status/Tobacco Use Comment F acility Feb 18, 2023 02:31 PM VA-TOBACCO QUIT 15 YRS OR MORE [place] [facility] Dec 31, 2021 01:00 PM VA-TOBACCO FORMER USER [place] [facility] Dec 31, 2021 01:00 PM VA-TOBACCO QUIT 15 YRS OR MORE [place] [facility] Advance Directives: All historical and current Section Date Range: From patient's date of to the date document was created. This section includes ALL of a patient's completed or amended [place] Advance and Rescinded Directives. The entries below indicate that a directive exists for the patient, but an actual copy is not included with this document. The data comes from all [place] facilities. Date Advance Directives Provider Source July 02, 2022 ADVANCE DIRECTIVE CECILIASANDRA SPR[facility] Aug 07, 2021 ADVANCE DIRECTIVE RADHA SAHA [facility] IE Nov 28, 2020 ADVANCE DIRECTIVE GOLDIE DUTTA [facility] IE Encounter Notes: All associated encounter notes This section contains the clinical notes associated to the Encounter. Date/Time Encounter Note(s) Provider Source Dec 22, 2023 07:22 AM SLEEP MEDICINE NOT E: LOCAL TITLE: CPAP CLINIC NOTE STANDARD TITLE: SLEEP MEDICINE NOTE DATE OF NOTE: DEC 22, 2023@07:22 ENTRY DATE: DEC 22, 2023@07:22:51 AUTHOR: FRANSICO MCNALLY COSIGNER: URGENCY: STATUS: COMPLETED Patient diagnosed with sleep apnea data reviewed for Cpap renewal and supplies ordered from [facility]. [place] secure messaged that he has lost a lot of weight and now using the small face pillow . He also says he has a lot of masks he is not using and would like to send back. [employer]PL[employer]ANCE [employer] Patient APAP compliance data reviewed via the [employer] program for the last 90 days. SETTINGS: Apap 8 - [id number] TOTAL DAYS USED 90 DAYS USED > 4hrs 85 AVG USAGE 6 hours AVG PRESSURE [id number] LEAK 3 AHI: 1 Central 0.3 These results indicate is compliant. [place]'s APAP Prescription will be renewed for 1 year. If pt has any questions or concerns regarding Apap, he/she can contact Respiratory at [phone] extension [phone]. /es/ FRANSICO MCNALLY CRT RESPIRATORY THERAPIST Signed: 12/22/2023 07:46 FRANSICO MCNALLY
--- OUTSIDE RECORDS SUMMARY | 2024-02-17 09:35 | XMS_ITS ---
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 Address [address] [place] [address] Care Team Providers Care Firesetter Name Role Phone LEV OCONNELL Primary Care [...] (PPO) FED EMPLO YE Jan 26, 2020 [id number] ELIZABETH SMILEY JR PATIENT AETNA PREFERRED PROVIDER ORGANIZAT ION (PPO) DWAYNE AL EMPL [facility] Feb 25, 2016 [id number] ELIZABETH SMILEY JR PATIENT AETNA PREFERRED PROVIDER ORGANIZAT ION (PPO) DWAYNE AL EMPL [facility] Feb 25, 2016 [id number] ELIZABETH SMILEY PATIENT AETNA PREFERRED PROVIDER ORGANIZAT ION (PPO) DWAYNE AL EMPLO YEES Feb 25, 2016 [id number] ELIZABETH BELCHER PATIENT AETNA PREFERRED PROVIDER ORGANIZAT ION (PPO) DWAYNE SILVA Feb 24, 2016 [id number] ELIZABETH SMILEY PATIENT AETNA PHARMACY MANAGEMENT PRESCRIPT ION DWAYNE SILVA Jan 26, 2020 [id number] ELIZABETH SMILEY JR PATIENT AETNA PHARMACY MANAGEMENT PRESCRIPT ION DWAYNE PIERCE Feb 25, 2016 [id number] ELIZABETH SMILEY PATIENT AETNA PHARMACY MANAGEMENT PRESCRIPT ION DAIANA Feb 25, 2016 [id number] ELIZABETH SMILEY PATIENT AETNA RX PRESCRIPT ION DWAYNE SILVA Feb 25, 2016 [id number] ELIZABETH SMILEY PATIENT AETNA RX PRESCRIPT ION F[facility] Feb 25, 2016 [id number] BALJIT BELCHERELIZABETH PATIENT CIGNA POINT OF SERVICE TYCO Mar 20, 2002 [id number] ELIZABETH SMILEY PATIENT CIGNA* POINT OF SERVICE Mar 20, 2002 [id number] BALJIT ELIZABETH PATIENT Selected Encounter This section includes the information on record at [place] for the Encounter. Date/Time Encounter Type Encounter Description Reason Pro vider Source Dec 05, 2023 09:40 AM Outpatient Encounter ADMIN PAT ACTIVTIES (MASNONCT) [...] AMBULATORY - MEDICINE AL C NTRL [facility] Jan 13, 2024 01:00 PM AMBULATORY - MEDICINE AL C NTRL [facility] Mar 15, 2024 02:00 PM [facility] Active, Pending, and Scheduled Orders This section includes a listing of several types of active, pending, and scheduled orders, including clinic medications orders, diagnostic test orders, procedure orders and consult orders; where the start date of the order is 45 days before the date of the Encounter or 45 days after the date of theEncounter. The data comes from all [place] treatment facilities. Test Date/Time Test Type Test Details Facility Name Jan 10, 2024 10:02 PM Consult Order [facility] Lead Consultant'jael [facility] Social History: Smoking Status (Most current) and [...] 18, 2023 02:31 PM VA-TOBACCO FORMER USER [facility] Tobacco Use History This section includes a history of the smoking, or tobacco-related health factors, that were collected on or before the date of the Encounter. The data comes from the [place] facility where the Encounter took place. Date/Time Smoking Status/Tobacco Use Comment F acility Feb 18, 2023 02:31 PM VA-TOBACCO QUIT 15 YRS OR MORE [facility] Dec 31, 2021 01:00 PM VA-TOBACCO FORMER USER [facility] Dec 31, 2021 01:00 PM AL-TOBACCO QUIT 15 YRS OR MORE [facility] Advance Directives: All historical and [...] 02, 2022 ADVANCE DIRECTIVE SANDRA BROOKS [facility] Aug 07, 2021 ADVANCE DIRECTIVE RADHA SAHA [facility] Nov 28, 2020 ADVANCE DIRECTIVE GOLDIE DUTTA [facility] IE Encounter Notes: All associated encounter notes This section contains the clinical notes associated to the Encounter. Date/Time Encounter Note(s) Provider Source Dec 05, 2023 09:40 AM ADMINISTRATIVE NOT E: LOCAL TITLE: CCC: SCHEDULING ADMINISTRATION STANDARD TITLE: ADMINISTRATIVE NOTE DATE OF NOTE: DEC 05, 2023@09:40:38 ENTRY DATE: DEC 05, 2023@09:40:38 AUTHOR: BRODY OSBORNE EXP COSIGNER: URGENCY: STATUS: COMPLETED Patient Demographics Patient Name: ELIZABETH SMILEY JR Patient Primary Phone: [phone] Patient Primary [address]: [address] [place] [address] [place] [address] Patient : 1960 Patient Age: 63 Caller/Recipient Relation to Patient: Self Administrative Administrative Note Reason: Other Administrative Note Comments: [place] called requesting a hard copy history of all the medications he has been on dating back to February of 2016. [place] states he would like it mailed to the address on file or he would be happy to pick it up at the [facility]. [place] was advised that he may need to speak with [facility] office. Kindly assist with a return call to discuss at [phone]. IMPORTANT: This note was created by [facility] Clinical Contact Center staff. Please do not alert the staff member by adding them as a signer for future communications. Alerts are not monitored by this user. /bienvenido/ BRODY AGUDELO 1 [facility] AMSA Signed: 12/05/2023 09:40 Receipt Acknowledged By: 12/05/2023 11:26 /es/ MAXIMO HOFFMAN LPN LPN 12/05/2023 12:21 /es/ STEVEN DIAL RN REGISTERED NURSE BRODY OSBORNE [facility]
--- OUTSIDE RECORDS SUMMARY | 2024-02-17 09:35 | XMS_ITS ---
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 Address [address] [place] [address] Care Team Providers Care Hl7 Developer Name Role Phone LEV OCONNELL Primary Care [...] PROVIDER ORGANIZAT ION (PPO) FED EMPLO [facility] Jan 26, 2020 [id number] [phone] ELIZABETH SMILEY JR PATIENT AETNA PREFERRED PROVIDER ORGANIZAT ION (PPO) DWAYNE AL EMPLO [facility] Feb 25, 2016 [id number] ELIZABETH SMILEY JR PATIENT AETNA PREFERRED PROVIDER ORGANIZAT ION (PPO) DWAYNE AL EMPL [facility] Feb 25, 2016 [id number] [phone] ELIZABETH SMILEY JR PATIENT AETNA PREFERRED PROVIDER ORGANIZAT ION (PPO) DWAYNE AL EMPL [facility] Feb 25, 2016 [id number] [id number] ELIZABETH SMILEY PATIENT AETNA PREFERRED PROVIDER ORGANIZAT ION (PPO) DWAYNE AL MIO MIMI COOLEY Feb 24, 2016 [id number] ELIZABETH SMILEY PATIENT AETNA PHARMACY MANAGEMENT PRESCRIPT ION DWAYNE AL EMPLO MIMI Jan 26, 2020 [id number] ELIZABETH SMILEY JR PATIENT AETNA PHARMACY MANAGEMENT PRESCRIPT ION DAIANA Feb 25, 2016 [id number] ELIZABETH SMILEY PATIENT AETNA PHARMACY MANAGEMENT PRESCRIPT ION DWAYNE AL EMPLO MIMI Feb 25, 2016 [id number] ELIZABETH SMILEY PATIENT AETNA RX PRESCRIPT ION DWAYNE AL EMPLO MIMI Feb 25, 2016 [id number] ELIZABETH SMILEY PATIENT AETNA RX PRESCRIPT ION [facility] Feb 25, 2016 [id number] ELIZABETH SMILEY JR PATIENT CIGNA POINT OF SERVICE [employer] Mar 20, 2002 [id number] ELIZABETH SMILEY PATIENT CIGNA* POINT OF SERVICE Mar 20, 2002 [id number] ELIZABETH SMILEY PATIENT Selected Encounter This section includes the information on record at [place] for the Encounter. Date/Time Encounter Type Encounter Description Reason Pro vider Source Nov 28, 2023 12:00 AM Outpatient Encounter [facility]ITY [facility] [...] AM[facility]ULATORY - [facility]ICINE [place] [facility] Jan 13, 2024 01:00 PM AMBULATORY - MEDICINE [place] [facility] Mar 15, 2024 02:00 PM [facility] Active, Pending, and Scheduled Orders This section includes a listing of several types of active, pending, and scheduled orders, including clinic medications orders, diagnostic test orders, procedure orders and consult orders; where the start date of the order is 45 days before the date of the Encounter or 45 days after the date of theEncounter. The data comes from all [place] treatment facilities. Test Date/Time Test Type Test Details Facility Name Jan 10, 2024 10:02 PM Consult Order [facility]-NEUROLOGY Cons Industrial Technologist's Bambi [facility] Social History: Smoking Status (Most current) and [...] 18, 2023 02:31 PM VA-TOBACCO FORMER USER [facility] Tobacco Use History This section includes a history of the smoking, or tobacco-related health factors, that were collected on or before the date of the Encounter. The data comes from the [place] facility where the Encounter took place. Date/Time Smoking Status/Tobacco Use Comment F acility Feb 18, 2023 02:31 PM VA-TOBACCO [facility] Dec 31, 2021 01:00 PM VA-TOBACCO [facility] Dec 31, 2021 01:00 PM [place]-TOBACCO QUIT 15 YRS OR MORE [facility] Advance Directives: All historical and current [...] 02, 2022 ADVANCE DIRECTIVE [facility] Aug 07, 2021 ADVANCE DIRECTIVE RADHA SAHA [facility] Nov 28, 2020 ADVANCE DIRECTIVE GOLDIE DUTTA [facility] Encounter Notes: All associated encounter notes This section contains the clinical notes associated to the Encounter. Date/Time Encounter Note(s) Provider Source Nov 28, 2023 12:00 AM NONVA CONSULT: LOCAL TITLE: COMMUNITY CARE-CONSULT RESULT NOTE STANDARD TITLE: NONVA CONSULT DATE OF NOTE: NOV 28, 2023 ENTRY DATE: DEC 03, 2023@13:22:10 AUTHOR: ALFONSO EID EXP COSIGNER: URGENCY: STATUS: COMPLETED VistA Imaging - Scanned Document SCANNED DOCUMENT SIGNATURE NOT REQUIRED Electronically Filed: 12/03/2023 by: ALFONSO CUEVA CNTRL WSTRN [facility]
--- OUTSIDE RECORDS SUMMARY | 2024-02-17 09:35 | XMS_ITS | Encounter Summary ---
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 [place] Organization [facility] Address [address] [place] [address] Care Team Providers Care Cap Sewer Name Role Phone LEV OCONNELL Primary Care [...] EMPLO [facility] Jan 26, 2020 [id number] ELIZABETH SMILEY JR PATIENT [employer]ET[employer] PREFERRED PROVIDER ORGANIZAT ION (PPO) DWAYNE AL EMPLO [facility] Feb 25, 2016 [id number] [phone] ELIZABETH SMILEY JR PATIENT AETNA PREFERRED PROVIDER ORGANIZAT ION (PPO) DWAYNE AL EMPL [facility] Feb 25, 2016 [id number] [phone] ELIAZBETH SMILEY JR PATIENT AETNA PREFERRED PROVIDER ORGANIZAT ION (PPO) DWAYNE AL EMPL [facility] Feb 25, 2016 [id number] ELIZABETH SMILEY PATIENT AETNA PREFERRED PROVIDER ORGANIZAT ION (PPO) DWAYNE AL MIO MIMI [facility] Feb 24, 2016 [id number] ELIZABETH SMILEY PATIENT AETNA PHARMACY MANAGEMENT PRESCRIPT ION DWAYNE AL EMPLO MIMI Jan 26, 2020 [id number] ELIZABETH SMILEY JR PATIENT AETNA PHARMACY MANAGEMENT PRESCRIPT ION DAIANA Feb 25, 2016 [id number] ELIZABETH SMILEY PATIENT AETNA PHARMACY MANAGEMENT PRESCRIPT ION DWAYNE AL EMPLO MIMI Feb 25, 2016 [id number] ELIZABETH SMILEY PATIENT AETNA RX PRESCRIPT ION DWAYNE AL EMPLO MIMI Feb 25, 2016 [id number] ELIZABETH SMILEY PATIENT AETNA RX PRESCRIPT ION [facility] Feb 25, 2016 [id number] ELIZABETH SMILEY JR PATIENT [employer] POINT OF SERVICE T[employer]CO Mar 20, 2002 [id number] ELIZABETH SMILEY PATIENT CIGNA* POINT OF SERVICE Mar 20, 2002 [id number] ELIZABETH SMILEY PATIENT Selected Encounter This section includes the information on record at [place] for the Encounter. Date/Time Encounter Type Encounter Description Reason Pro vider Source Dec 22, 2023 08:54 AM Outpatient Encounter PRIMARY CARE/MEDICINE IHE Encounter Template Text not used by [place] Plan of Treatment: Future Appointments (+ 6 months) and Future Tests (+/- 45 days) The Plan of Treatment section includes future care activities for the patient from all [place] treatmentfacilities. This section includes future appointments and future orders which are active, pending or scheduled. Future Appointments This section includes appointments that were scheduled to occur 6 months from the date of the Encounter, up to a maximum of 20 appointments. The data comes from all [place] treatment facilities. Appointment Date/Time Appointment Type Appointme nt Facility Name Dec 29, 2023 01:30 PM AMBULATORY - MEDICINE [place] [facility] [place] [facility] Jan 13, 2024 01:00 PM AMBULATORY - [facility] Mar 15, 2024 02:00 PM [facility] Active, Pending, and Scheduled Orders This section includes a listing of several types of active, pending, and scheduled orders, including clinic medications orders, diagnostic test orders, procedure orders and consult orders; where the start date of the order is 45 days before the date of the Encounter or 45 days after the date of theEncounter. The data comes from all [place] treatment facilities. Test Date/Time Test Type Test Details Facility Name Jan 10, 2024 10:02 PM Consult Order [facility]-NEUROLOGY 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 Current Smoking Status This section includes the most current smoking, or tobacco-related health factor, from the [place] facility where the Encounter took place. Date/Time Current Smoking Status Comment Facil ity Feb 18, 2023 02:31 PM VA-TOBACCO FORMER USER [facility] Tobacco Use History This section includes a history of the smoking, or tobacco-related health factors, that were collected on or before the date of the Encounter. The data comes from the [place] facility where the Encounter took place. Date/Time Smoking Status/Tobacco Use Comment F acility Feb 18, 2023 02:31 PM VA-TOBACCO QUIT 15 YRS OR MORE [facility] Dec 31, 2021 01:00 PM VA-TOBACCO FORMER USER [place] [facility]TR [facility] [place] [facility] Dec 31, 2021 01:00 PM LA-TOBACCO QUIT 15 YRS OR MORE [facility] Advance Directives: All historical and current Section Date Range: From patient's date of to the date document was created. This section includes ALL of a patient's completed or amended [place] Advance and Rescinded Directives. The entries below indicate that a directive exists for the patient, but an actual copy is not included with this document. The data comes from all [place] facilities. Date Advance Directives Provider Source July 02, 2022 ADVANCE DIRECTIVE SANDRA BROOKS [facility] Aug 07, 2021 ADVANCE DIRECTIVE RADHA SAHA [facility] [place] Nov 28, 2020 ADVANCE DIRECTIVE GOLDIE DUTTA [facility] [place] Encounter Notes: All associated encounter notes This section contains the clinical notes associated to the Encounter. Date/Time Encounter Note(s) Provider Source Dec 22, 2023 08:54 AM PRIMARY CARE SECUR E MESSAGING: LOCAL TITLE: PRIMARY CARE SECURE MESSAGING STANDARD TITLE: PRIMARY CARE SECURE MESSAGING DATE OF NOTE: DEC 22, 2023@08:54 ENTRY DATE: DEC 22, 2023@08:54:37 AUTHOR: SANDRA BROOKS EXP COSIGNER: URGENCY: STATUS: COMPLETED PRIMARY CARE SECURE MESSAGING Has ADDENDA ------Original Message -------- Sent: 12/20/2023 08:41 AM ET From: ELIZABETH SMILEY To: ANISH,O_P [facility] Subject: Test:Labs I need to have my Thyroid and A1C tested for an up coming visit with my Gaggerman Dr. Marc. /bienvenido/ SANDRA MENESES Signed: 12/22/2023 08:54 Receipt Acknowledged By: 12/24/2023 14:49 /bashir HOFFMAN LPN LPN 01/04/2024 16:59 /bienvenido/ RIMMA LOPES,RN-BC REGISTERED NURSE (RN) for [facility] 12/24/2023 ADDENDUM STATUS: COMPLETED contacted - labs are in place for upcoming PCP appt. wishes to get labs done now and then again for PCP appt. Advised Fedora to obtain labs through ordering providers office, he verbally understands. /bashir HOFFMAN LPN LPN Signed: 12/24/2023 14:49 SANDRA BROOKS CNTRL [facility]
--- OUTSIDE RECORDS SUMMARY | 2024-02-17 09:35 | XMS_ITS ---
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 ([place]) Organization [facility] Address [address] [place] [address] Care Team Providers Care Field Auto Appraiser Name Role Phone LEV OCONNELL Primary Care [...] EMPLO [facility] Jan 26, 2020 [id number] [phone] ELIZABETH SMILEY JR PATIENT AETNA PREFERRED PROVIDER ORGANIZAT ION (PPO) DWAYNE AL EMPLO [facility] Feb 25, 2016 [id number] ELIZABETH SMILEY JR PATIENT AETNA PREFERRED PROVIDER ORGANIZAT ION (PPO) DWAYNE AL EMPL [facility] Feb 25, 2016 [id number] [phone] ELIZABETH SMILEY JR PATIENT AETNA PREFERRED PROVIDER ORGANIZAT ION (PPO) DWAYNE AL EMPL [facility] Feb 25, 2016 [id number] ELIZABETH SMILEY PATIENT AETNA PREFERRED PROVIDER ORGANIZAT ION (PPO) DWAYNE AL MIO MIMI COOLEY Feb 24, 2016 [id number] ELIZABETH SMILEY PATIENT AETNA PHARMACY MANAGEMENT PRESCRIPT ION DWAYNE AL EMPLO MIMI Jan 26, 2020 [id number] ELIZABETH SMILEY JR PATIENT AETNA PHARMACY MANAGEMENT PRESCRIPT ION DAIANA Feb 25, 2016 [id number] ELIZABETH SMILEY PATIENT AETNA PHARMACY MANAGEMENT PRESCRIPT ION DWAYNE AL EMPLO MIMI Feb 25, 2016 [id number] ELIZABETH SMILEY PATIENT AETNA RX PRESCRIPT ION DWAYNE AL EMPLO MIMI Feb 25, 2016 [id number] ELIZABETH SMILEY PATIENT AETNA RX PRESCRIPT [facility]ON [facility] Feb 25, 2016 [id number] ELIZABETH SMILEY JR PATIENT CIGNA POINT OF SERVICE TYCO Mar 20, 2002 [id number] ELIZABETH SMILEY PATIENT CIGNA* POINT OF SERVICE Mar 20, 2002 [id number] ELIZABETH SMILEY PATIENT Selected Encounter This section includes the information on record at [place] for the Encounter. Date/Time Encounter Type Encounter Description Reason Pro vider Source Dec 04, 2023 08:35 AM Outpatient Encounter PRIMARY CARE/MEDICINE IHE Encounter [...] AMBULATORY - MEDICINE [place] [facility] Jan 13, 2024 01:00 PM AMBULATORY - [facility] Mar 15, 2024 02:00 PM [facility] Active, Pending, and Scheduled Orders This section includes a listing of several types of active, pending, and scheduled orders, including clinic medications orders, diagnostic test orders, procedure orders and consult orders; where the start date of the order is 45 days before the date of the Encounter or 45 days after the date of theEncounter. The data comes from all [place] treatment facilities. Test Date/Time Test Type Test Details Facility Name Jan 10, 2024 10:02 PM Consult Order [facility]-NEUROLOGY [facility] Digestion Operator's Bambi [place] Social History: Smoking Status (Most current) and [...] 18, 2023 02:31 PM VA-TOBACCO FORMER USER [facility] Tobacco Use History This section includes a history of the smoking, or tobacco-related health factors, that were collected on or before the date of the Encounter. The data comes from the [place] facility where the Encounter took place. Date/Time Smoking Status/Tobacco Use Comment F acility Feb 18, 2023 02:31 PM VA-TOBACCO QUIT 15 YRS OR MORE PA [facility] Dec 31, 2021 01:00 PM VA-TOBACCO FORMER USER [place] [facility]TR [place] [facility] Dec 31, 2021 01:00 PM PA-TOBACCO QUIT 15 YRS OR MORE [facility] Advance Directives: All historical and [...] 07, [address] [facility] [place] Nov 28, [address] GOLDIE DUTTA [facility] [place] Encounter Notes: All associated encounter notes This section contains the clinical notes associated to the Encounter. Date/Time Encounter Note(s) Provider Source Dec 04, 2023 08:35 AM PRIMARY CARE SECUR E MESSAGING: LOCAL TITLE: PRIMARY CARE SECURE MESSAGING STANDARD TITLE: PRIMARY CARE SECURE MESSAGING DATE OF NOTE: DEC 04, 2023@08:35 ENTRY DATE: DEC 04, 2023@08:35:12 AUTHOR: ABEBE JOHNSON EXP COSIGNER: URGENCY: STATUS: COMPLETED ------Original Message ------ Sent: 12/03/2023 07:33 PM ET From: ELIZABETH SMILEY To: RAINA OCONNELL [facility] Subject: Medication:Refill for diabetic test strips I have no available refills for my diabetic test strips. Please refill and send in the mail. /bienvenido/ ABEBE JOHNSON AMSMaci Signed: 12/04/2023 08:35 Receipt Acknowledged By: 12/04/2023 08:59 /es/ MAXIMO HOFFMAN LPN LPN 12/05/2023 11:25 /es/ STEVEN DILA RN REGISTERED NURSE ABEBE JOHNSON [place] [facility]
--- OUTSIDE RECORDS SUMMARY | 2024-02-17 09:35 | XMS_ITS | Encounter Summary ---
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 of [facility] [place] Organization Department of [facility] [place] Address [address] [place] [address] Care Team Providers Care Signs And Displays Sales Representative Name Role Phone LEV OCONNELL Primary Care [...] (PPO) FED EMPLO YE Jan 26, 2020 [id number] ELIZABETH SMILEY JR PATIENT AETNA PREFERRED PROVIDER ORGANIZAT ION (PPO) DWAYNE AL EMPLO [facility] Feb 25, 2016 [id number] ELIZABETH SMILEY JR PATIENT AETNA PREFERRED PROVIDER ORGANIZAT ION (PPO) DWAYNE AL EMPL [facility] Feb 25, 2016 [id number] ELIZABETH SMILEY JR PATIENT AETNA PREFERRED PROVIDER ORGANIZAT ION (PPO) DWAYNE AL EMPL [facility] Feb 25, 2016 [id number] [id number] ELIZABETH SMILEY PATIENT AETNA PREFERRED PROVIDER ORGANIZAT ION (PPO) DWAYNE AL EMPLO [facility]IMI [facility] Feb 24, 2016 [id number] ELIZABETH SMILEY PATIENT AETNA PHARMACY MANAGEMENT PRESCRIPT ION DWAYNE AL EMPLO MIMI [facility] Jan 26, 2020 [id number] ELIZABETH SMILEY JR PATIENT AETNA PHARMACY MANAGEMENT PRESCRIPT ION DAIANA Feb 25, 2016 [id number] ELIZABETH SMILEY PATIENT AETNA PHARMACY MANAGEMENT PRESCRIPT ION DWAYNE AL EMPLO MIMI Feb 25, 2016 [id number] ELIZABETH SMILEY PATIENT AETNA RX PRESCRIPT ION DWYANE AL EMPLO MIMI Feb 25, 2016 [id number] ELIZABETH SMILEY PATIENT AETNA RX PRESCRIPT ION [facility] Feb 25, 2016 [id number] BALJIT ELIZABETH BELCHER PATIENT CIGNA POINT OF SERVICE [employer]CO Mar 20, 2002 [id number] ELIZABETH SMILEY PATIENT CIGNA* POINT OF SERVICE Mar 20, 2002 [id number] BALJIT ELIZABETH PATIENT Selected Encounter This section includes the information on record at [place] for the Encounter. Date/Time Encounter Type Encounter Description Reason Pro vider Source Dec 31, 2023 11:15 AM Outpatient Encounter ADMIN PAT ACTIVTIES (MASNONCT) [...] Date/Time Appointment Type Appointme nt Facility Name Jan 13, 2024 01:00 PM AMBULATORY - MEDICINE [facility] NTR [facility] Mar 15, 2024 02:00 PM [facility]UL[facility] Active, Pending, and Scheduled Orders This section includes a listing of several types of active, pending, and scheduled orders, including clinic medications orders, diagnostic test orders, procedure orders and consult orders; where the start date of the order is 45 days before the date of the Encounter or 45 days after the date of theEncounter. The data comes from all [place] treatment facilities. Test Date/Time Test Type Test Details Facility Name Jan 10, 2024 10:02 PM Consult Order [facility] Underwriting Director's [facility] Social History: Smoking Status (Most current) and [...] 18, 2023 02:31 PM VA-TOBACCO FORMER USER [facility] Tobacco Use History This section includes a history of the smoking, or tobacco-related health factors, that were collected on or before the date of the Encounter. The data comes from the [place] facility where the Encounter took place. Date/Time Smoking Status/Tobacco Use Comment F acility Feb 18, 2023 02:31 PM PR-TOBACCO QUIT [facility]RS [facility] Dec 31[facility] 2021 01:00 PM [facility] Dec 31, 2021 01:00 PM PR-TOBACCO QUIT 15 YRS OR MORE [facility] Advance Directives: All historical and [...] July 02, 2022 ADVANCE DIRECTIVE SANDRA BROOKS Aug 07, 2021 ADVANCE DIRECTIVE RADHA SAHA [facility] Nov 28, 2020 ADVANCE DIRECTIVE GOLDIE DUTTA [facility] Encounter Notes: All associated encounter notes This section contains the clinical notes associated to the Encounter. Date/Time Encounter Note(s) Provider Source Dec 31, 2023 11:15 AM ADMINISTRATIVE NOT E: LOCAL TITLE: CCC: SCHEDULING ADMINISTRATION STANDARD TITLE: ADMINISTRATIVE NOTE DATE OF NOTE: DEC 31, 2023@11:15:20 ENTRY DATE: DEC 31, 2023@11:15:20 AUTHOR: LULU OJEDA EXP COSIGNER: URGENCY: STATUS: COMPLETED CCC: SCHEDULING ADMINISTRATION Has ADDENDA Patient Demographics Patient Name: ELIZABETH SMILEY JR Patient Primary Phone: [phone] Patient Primary Address: [address] [place] [address] [place] [address] Patient : 1960 Patient Age: 63 Caller/Recipient Relation to Patient: Self Administrative Administrative Note Reason: [facility] / [place] Act Administrative Note Comments: Pt called stating that he had his appointment with Neurology Surgeon and he can not help with medications that he is currently taking or any changes. He said to contact his PACT PCP for new consult with Neurologist that handles medications and not a Surgeon. Pt would like to stay within [facility] system. Pt's call back number is [phone]. IMPORTANT: This note was created by [facility] Clinical Contact Center staff. Please do not alert the staff member by adding them as a signer for future communications. Alerts are not monitored by this user. /bienvenido/ LULU OJEDA Signed: 12/31/2023 11:15 Receipt Acknowledged By: 01/05/2024 16:24 /es/ MAXIMO HOFFMAN LPN LPN 01/12/2024 00:13 /es/ STEVEN DIAL RN REGISTERED NURSE 01/02/2024 ADDENDUM STATUS: COMPLETED Per [facility] staff, does not need another consult to see another provider within [facility]. This writer editor Called without success. Left message on voicemail identified in outgoing message by 's name advising as such and that he can call [facility] to schedule a an appt if needed. Return call number to PACT was provided. /bienvenido/ STEVEN DIAL RN REGISTERED NURSE Signed: 01/02/2024 16:27 LULU OJEDA [facility]
--- OUTSIDE RECORDS SUMMARY | 2024-02-17 09:35 | XMS_ITS | Encounter Summary ---
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 [place] Organization Department of Vetera Affairs [place] Address [address] [place] [address] Care Team Providers Care Core Dropper Name Role Phone LEV OCONNELL Primary Care [...] (PPO) FED EMPLO [facility] Jan 26, 2020 [id number] ELIZABETH SMILEY JR PATIENT AETNA PREFERRED PROVIDER ORGANIZAT ION (PPO) DWAYNE AL EMPL [facility] Feb 25, 2016 [id number] [phone] ELIZABETH SMILEY JR PATIENT AETNA PREFERRED PROVIDER ORGANIZAT ION (PPO) DWAYNE AL EMPL [facility] Feb 25, 2016 [id number] ELIZABETH SMILEY PATIENT AETNA PREFERRED PROVIDER ORGANIZAT ION (PPO) DWAYNE AL EMPLO [facility] Feb 25, 2016 [id number] BALJITELIZABETH SCANLON JR PATIENT AETNA PREFERRED PROVIDER ORGANIZAT ION (PPO) DWAYNE SILVA Feb 24, 2016 [id number] ELIZABETH SMILEY PATIENT AETNA PHARMACY MANAGEMENT PRESCRIPT ION DWAYNE SILVA Jan 26, 2020 [id number] ELIZABETH SMILEY JR PATIENT AETNA PHARMACY MANAGEMENT PRESCRIPT ION DWAYNE PIER[place] Feb 25, 2016 [id number] ELIZABETH SMILEY PATIENT AETNA PHARMACY MANAGEMENT PRESCRIPT ION [facility] Feb 25, 2016 [id number] ELIZABETH SMILEY PATIENT AETNA RX PRESCRIPT ION DWAYNE SILVA Feb 25, 2016 [id number] ELIZABETH SMILEY PATIENT AETNA RX PRESCRIPT ION [facility] Feb 25, 2016 [id number] BALJIT ELIZABETH BELCHER PATIENT CIGNA POINT OF SERVICE TYCO Mar 20, 2002 [id number] ELIZBAETH SMILEY PATIENT CIGNA* POINT OF SERVICE Mar 20, 2002 [id number] ELIZABETH SMILEY PATIENT Selected Encounter This section includes the information on record at [place] for the Encounter. Date/Time Encounter Type Encounter Description Reason Pro vider Source Nov 11, 2023 12:00 AM Outpatient Encounter COMMUNITY CARE CONSULT IHE Encounter Template Text not used by [place] Plan of Treatment: Future Appointments (+ 6 months) and Future Tests (+/- 45 days) The Plan of Treatment section includes future care activities for the patient from all [place] treatmentfacilities. This section includes future appointments and future orders which are active, pending or scheduled. Future Appointments This section includes appointments that were scheduled to occur 6 months from the date of the Encounter, up to a maximum of 20 appointments. The data comes from all [place] treatment facilities. Appointment Date/Time Appointment Type Appointme nt Facility Name Nov 26, 2023 10:00 AM AMBULATORY - MEDICINE [place] [facility] [place] [facility] Nov 28, 2023 07:35 PM AMBULATORY - MEDICINE DE C [facility] [place] [facility] Dec 29, 2023 01:30 PM AMBULATORY - MEDICINE DE C [facility] [place] [facility] Jan 13, 2024 01:00 PM AMBULATORY - MEDICINE DE C [facility] [place] [facility] Mar 15, 2024 02:00 PM AMBULATORY - MEDICINE [facility] Social History: Smoking Status (Most current) and Tobacco Use (All prior to encounter date) This section includes the most current, and the historical, smoking and tobacco- related health factors from the [place] facility where the Encounter took place. Current Smoking Status This section includes the most current smoking, or tobacco-related health factor, from the [place] facility where the Encounter took place. Date/Time Current Smoking Status Comment Facil ity Feb 18, 2023 02:31 PM [facility] Tobacco Use History This section includes a history of the smoking, or tobacco-related health factors, that were collected on or before the date of the Encounter. The data comes from the [place] facility where the Encounter took place. Date/Time Smoking Status/Tobacco Use Comment F acility Feb 18, 2023 02:31 PM VA-TOBACCO QUIT 15 YRS OR MORE [place] [facility]L [facility] [place] [facility] Dec 31, 2021 01:00 PM VA-TOBACCO FORMER USER [place] [facility]TRL [facility] [place] [facility] Dec 31, 2021 01:00 PM VA-TOBACCO QUIT 15 YRS OR MORE [facility]SN [facility] Advance Directives: All historical and current Section Date Range: From patient's date of to the date document was created. This section includes ALL of a patient's completed or amended [place] Advance and Rescinded Directives. The entries below indicate that a directive exists for the patient, but an actual copy is not included with this document. The data comes from all [place] facilities. Date Advance Directives Provider Source July 02, 2022 ADVANCE DIRECTIVE SANDRA BROOKS [facility] Aug 07, 2021 ADVANCE DIRECTIVE RADHA SAHA [facility] [place] Nov 28, 2020 ADVANCE DIRECTIVE GOLDIE DUTTA [facility] Encounter Notes: All associated encounter notes This section contains the clinical notes associated to the Encounter. Date/Time Encounter Note(s) Provider Source Nov 11, 2023 12:00 AM NONVA CONSULT: LOCAL TITLE: COMMUNITY CARE-CONSULT RESULT NOTE STANDARD TITLE: NONVA CONSULT DATE OF NOTE: NOV 11, 2023 ENTRY DATE: DEC 10, 2023@09:52:43 AUTHOR: FELY WHYTE EXP COSIGNER: URGENCY: STATUS: COMPLETED VistA Imaging - Scanned Document SCANNED DOCUMENT SIGNATURE NOT REQUIRED Electronically Filed: 12/10/2023 by: FELY WHYTE LICENSED PRACTICAL NURSE FELY WHYTE [facility]L [facility]
--- OUTSIDE RECORDS SUMMARY | 2024-02-17 09:35 | XMS_ITS ---
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 ([place]) Organization [facility] ([place]) Address [address] [place] [address] Care Team Providers Care Check Scaler Name Role Phone LEV OCONNELL Primary Care [...] PREFERRED PROVIDER ORGANIZAT ION (PPO) FED EMPLO [facility] Jan 26, 2020 [id number] ELIZABETH SMILEY JR PATIENT [employer] PREFERRED PROVIDER ORGANIZAT ION (PPO) DWAYNE AL EMPLO [facility] Feb 25, 2016 [id number] ELIZABETH SMILEY JR PATIENT [employer] PREFERRED PROVIDER ORGANIZAT ION (PPO) DWAYNE AL EMPL [facility] Feb 25, 2016 [id number] [phone] ELIZABETH SMILEY JR PATIENT [employer] PREFERRED PROVIDER ORGANIZAT ION (PPO) DWAYNE AL EMPL [facility] Feb 25, 2016 [id number] ELIZABETH SMILEY PATIENT A[employer] PREFERRED PROVIDER ORGANIZAT ION (PPO) DWAYNE AL MIO MIMI [facility] Feb 24, 2016 [id number] ELIZABETH SMILEY PATIENT AET[employer] PHARMACY MANAGEMENT PRESCRIPT ION DWAYNE AL EMPLO MIMI Jan 26, 2020 [id number] ELIZABETH SMILEY JR PATIENT [employer] PHARMACY MANAGEMENT PRESCRIPT ION DAIANA Feb 25, 2016 [id number] ELIZABETH SMILEY PATIENT [employer] PHARMACY MANAGEMENT PRESCRIPT ION DWAYNE AL EMPLO MIMI Feb 25, 2016 [id number] ELIZABETH SMILEY PATIENT AET[employer] RX PRESCRIPT ION DWAYNE AL EMPLO MIMI Feb 25, 2016 [id number] ELIZABETH SMILEY PATIENT AETNA RX PRESCRIPT ION [facility] Feb 25, 2016 [id number] [id number] ELIZABETH SMILEY JR PATIENT [employer] POINT OF SERVICE [employer] Mar 20, 2002 [id number] ELIZABETH SMILEY PATIENT [employer]IGNA* POINT OF SERVICE Mar 20, 2002 [id number] ELIZABETH SMILEY PATIENT Selected Encounter This section includes the information on record at [place] for the Encounter. Date/Time Encounter Type Encounter Description Reason Pro vider Source Dec 04, 2023 08:56 AM Outpatient Encounter PRIMARY CARE/MEDICINE IHE Encounter Template Text not used by OR Plan of Treatment: Future Appointments (+ 6 months) and Future Tests (+/- 45 days) The Plan of Treatment section includes future care activities for the patient from all [place] treatmentfacilities. This section includes future appointments and future orders which are active, pending or scheduled. Future Appointments This section includes appointments that were scheduled to occur 6 months from the date of the Encounter, up to a maximum of 20 appointments. The data comes from all [place] treatment facilities. Appointment Date/Time Appointment Type Appointme nt Facility Name Dec 29, 2023 01:30 PM AMBULATORY - MEDICINE [place] [facility] [place] [facility] Jan 13, 2024 01:00 PM [facility] Mar 15, 2024 02:00 PM [facility] Active, Pending, and Scheduled Orders This section includes a listing of several types of active, pending, and scheduled orders, including clinic medications orders, diagnostic test orders, procedure orders and consult orders; where the start date of the order is 45 days before the date of the Encounter or 45 days after the date of theEncounter. The data comes from all [place] treatment facilities. 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 Current Smoking Status This section includes the most current smoking, or tobacco-related health factor, from the [place] facility where the Encounter took place. Date/Time Current Smoking Status Comment Facil ity Feb 18, 2023 02:31 PM VA-TOBACCO FORMER USER [facility] Tobacco Use History This section includes a history of the smoking, or tobacco-related health factors, that were collected on or before the date of the Encounter. The data comes from the [place] facility where the Encounter took place. Date/Time Smoking Status/Tobacco Use Comment F acility Feb 18, 2023 02:31 PM VA-TOBACCO QUIT 15 YRS OR MORE [facility] Dec 31, 2021 01:00 PM VA-TOBACCO FORMER USER [place] [facility] [place] [facility] Dec 31, 2021 01:00 PM OR-TOBACCO QUIT 15 YRS OR MORE [facility] Advance Directives: All historical and current Section Date Range: From patient's date of to the date document was created. This section includes ALL of a patient's completed or amended VA Advance and Rescinded Directives. The entries below indicate that a directive exists for the patient, but an actual copy is not included with this document. The data comes from all [place] facilities. Date Advance Directives Provider Source July 02, 2022 ADVANCE DIRECT[facility] Aug 07, 2021 ADVANCE DIRECTIVE RADHA SAHA [place] Nov 28, 2020 ADVANCE DIRECTIVE GOLDIE DUTTA [facility] [place] Encounter Notes: All associated encounter notes This section contains the clinical notes associated to the Encounter. Date/Time Encounter Note(s) Provider Source Dec 04, 2023 08:56 AM MEDICATION MGT NOT E: LOCAL TITLE: OUTPATIENT MEDICATION REQUEST STANDARD TITLE: MEDICATION MGT NOTE DATE OF NOTE: DEC 04, 2023@08:56 ENTRY DATE: DEC 04, 2023@08:57:04 AUTHOR: MAXIMO HOFFMAN EXP COSIGNER: URGENCY: STATUS: COMPLETED Medication Request Date of Request: Nov Is this a New Medication? No PLEASE RENEW AND MAIL ACCU-CHEK GUIDE (GLUCOSE) TEST STRIP Dispense Drug: ACCU-CHEK GUIDE (GLUCOSE) TEST STRIP Instructions: 1 STRIP MISCELLANEOUS GLUCOSE 2XWEEK PRN Sig: USE 1 STRIP TO TEST BLOOD SUGARS TWICE A WEEK NEEDED TO BE USED WITH ACCU-CHEK GUIDE ME METER /bienvenido/ MAXIMO HOFFMAN LPN LPN Signed: 12/04/2023 08:58 Receipt Acknowledged By: 12/09/2023 09:25 /es/ LEV OCONNELL MD PHYSICIAN MAXIMO HOFFMAN
--- OUTSIDE RECORDS SUMMARY | 2024-02-17 09:36 | XMS_ITS ---
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 [facility] Address [address] [place] [address] Care Team Providers Care Senior Nuclear Medicine Technologist Name Role Phone LEV OCONNELL Primary Care [...] PREFERRED PROVIDER ORGANIZAT ION (PPO) FED EMPLO [facility] Jan 26, 2020 [id number] ELIZABETH SMILEY JR PATIENT [employer] PREFERRED PROVIDER ORGANIZAT ION (PPO) DWAYNE AL EMPLO [facility] Feb 25, 2016 [id number] ELIZABETH SMILEY JR PATIENT AETNA PREFERRED PROVIDER ORGANIZAT ION (PPO) DWAYNE AL EMPL [facility] Feb 25, 2016 [id number] ELIZABETH SMILEY JR PATIENT AETNA PREFERRED PROVIDER ORGANIZAT ION (PPO) DWAYNE AL EMPL [facility] Feb 25, 2016 [id number] [id number] ELIZABETH SMILEY PATIENT AETNA PREFERRED PROVIDER ORGANIZAT ION (PPO) DWAYNE AL MIO MIMI COO[place] Feb 24, 2016 [id number] ELIZABETH SMILEY PATIENT AETNA PHARMACY MANAGEMENT PRESCRIPT ION DWAYNE AL EMPLO MIMI Jan 26, 2020 [id number] ELIZABETH SMILEY JR PATIENT [employer] PHARMACY MANAGEMENT PRESCRIPT ION DAIANA Feb 25, 2016 [id number] ELIZABETH SMILEY PATIENT AETNA PHARMACY MANAGEMENT PRESCRIPT ION DWAYNE AL EMPLO MIMI Feb 25, 2016 [id number] ELIZABETH SMILEY PATIENT AETNA RX PRESCRIPT ION DWAYNE AL EMPLO MIMI Feb 25, 2016 [id number] ELIZABETH SMILEY PATIENT AETNA RX PRESCRIPT [facility] Feb 25, 2016 [id number] ELIZABETH SMILEY JR PATIENT CIGNA POINT OF SERVICE T[employer] Mar 20, 2002 [id number] ELIZABETH SMILEY PATIENT CIGNA* POINT OF SERVICE Mar 20, 2002 [id number] ELIZABETH SMILEY PATIENT Selected Encounter This section includes the information on record at [place] for the Encounter. Date/Time Encounter Type Encounter Description Reason Pro vider Source Jan 08, 2024 01:53 PM Outpatient Encounter PRIMARY CARE/MEDICINE IHE Encounter [...] 13, 2024 01:00 PM AMBULATORY - MEDICINE [place] [facility] [place] [facility] Mar 15, 2024 02:00 PM [facility] Active, Pending, and Scheduled Orders This section includes a listing of several types of active, pending, and scheduled orders, including clinic medications orders, diagnostic test orders, procedure orders and consult orders; where the start date of the order is 45 days before the date of the Encounter or 45 days after the date of theEncounter. The data comes from all [place] treatment facilities. Test Date/Time Test Type Test Details Facility Name Jan 10, 2024 10:02 PM Consult Order [facility]-NEUROLOGY [facility] Feb 16, 2024 03:57 PM Consult Order PAIN CLINI C/[facility] OUTPT [facility] Social History: Smoking Status (Most current) and [...] 18, 2023 02:31 PM VA-TOBACCO FORMER USER [facility] Tobacco Use History This section includes a history of the smoking, or tobacco-related health factors, that were collected on or before the date of the Encounter. The data comes from the [place] facility where the Encounter took place. Date/Time Smoking Status/Tobacco Use Comment F acility Feb 18, 2023 02:31 PM VA-TOBACCO QUIT 15 YRS OR MORE [place] [facility] [place] [facility] Dec 31, 2021 01:00 PM VA-TOBACCO FORMER USER [place] [facility] [place] [facility] Dec 31, 2021 01:00 PM [place]-TOBACCO QUIT 15 YRS OR MORE [facility] Advance Directives: All historical and current [...] Provider Source July 02, 2022 ADVANCE DIRECTIVE CECILIA,TONTITADIONE [facility] Aug 07, 2021 ADVANCE DIRECTIVE RADHA SAHA [place] Nov 28, 2020 ADVANCE DIRECTIVE GOLDIE DUTTA [facility] [place] Encounter Notes: All associated encounter notes This section contains the clinical notes associated to the Encounter. Date/Time Encounter Note(s) Provider Source Jan 08, 2024 01:53 PM PRIMARY CARE [place] E MESSAGING: LOCAL TITLE: PRIMARY CARE SECURE MESSAGING STANDARD TITLE: PRIMARY CARE SECURE MESSAGING DATE OF NOTE: JAN 08, 2024@13:53 ENTRY DATE: JAN 08, 2024@13:53:53 AUTHOR: SANDRA BROOKS EXP COSIGNER: URGENCY: STATUS: COMPLETED PRIMARY CARE SECURE MESSAGING Has ADDENDA ------Original Message -------- Sent: 01/08/2024 01:19 PM ET From: ELIZABETH SMILEY To: ANISH,O_P [facility] Subject: Medication:Ozempic I met with Dr. Cowan on 12/31 and she stated she wanted to increase my Ozempic from 1mg to 2mg. She said she was sending the info to Dr. Castillo, but I asked the call center and they see no note. I also checked and see nothing new in the Refill Section. I have no refills available and take my last shot tomorrow morning. I need either a refill for the Ozempic 1mg or a new prescription for Ozempic 2mg, so I can pick it up at the [facility] pharmacy window PAULIE. /bienvenido/ SANDRA BROOKS AMSA Signed: 01/08/2024 13:53 Receipt Acknowledged By: 01/11/2024 21:29 /bienvenido/ MAXIMO HOFFMAN LPN LPN 2024 12:52 /bienvenido/ STEVEN DIAL RN REGISTERED NURSE 2024 ADDENDUM STATUS: COMPLETED Please see Outpatient medication request note on 01/09/24. Boe with . Updated him that PCP would be notified. /bienvenido/ STEVEN DIALRN REGISTERED NURSE Signed: 2024 12:52 SANDRA BROOKS [facility]
--- OUTSIDE RECORDS SUMMARY | 2024-02-17 09:36 | XMS_ITS ---
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 of Vetera ns Affairs [place] Organization Department of [place] Address [address] [place] [address] Care Team Providers Care Herpetologist Name Role Phone LEV OCONNELL Primary Care [...] (PPO) FED EMPLO [facility] Jan 26, 2020 [id number] [phone] ELIZABETH SMILEY JR PATIENT [employer] PREFERRED PROVIDER ORGANIZAT ION (PPO) DWAYNE AL EMPL [facility] Feb 25, 2016 [id number] ELIZABETH SMILEY JR PATIENT A[employer]NA PREFERRED PROVIDER ORGANIZAT ION (PPO) DWAYNE AL EMPL [facility] Feb 25, 2016 [id number] ELIZABETH SMILEY PATIENT A[employer]NA PREFERRED PROVIDER ORGANIZAT ION (PPO) DWAYNE AL EMPLO [facility] Feb 25, 2016 [id number] ELIZABETH BELCHER PATIENT AETNA PREFERRED PROVIDER ORGANIZAT ION (PPO) DWAYNE MORALESO MIMI COOLEY Feb 24, 2016 [id number] ELIZABETH SMILEY PATIENT [employer] PHARMACY MANAGEMENT PRESCRIPT ION DWAYNE SILVA Jan 26, 2020 [id number] ELIZABETH SMILEY JR PATIENT [employer] PHARMACY MANAGEMENT PRESCRIPT ION DAIANA Feb 25, 2016 [id number] [phone] ELIZABETH SMILEY PATIENT [employer] PHARMACY MANAGEMENT PRESCRIPT ION DWAYNE MORALESO MIMI Feb 25, 2016 [id number] ELIZABETH SMILEY PATIENT AETNA RX PRESCRIPT ION DWAYNE SILVA Feb 25, 2016 [id number] ELIZABETH SMILEY PATIENT AETNA RX PRESCRIPT ION [facility] Feb 25, 2016 [id number] BALJIT BELCHERELIZABETH PATIENT CIGNA POINT OF SERVICE TYCO Mar 20, 2002 [id number] ELIZABETH SMILEY PATIENT CIGNA* POINT OF SERVICE Mar 20, 2002 [id number] BALJIT ELIZABETH PATIENT Selected Encounter This section includes the information on record at [place] for the Encounter. Date/Time Encounter Type Encounter Description Reason Pro vider Source Jan 02, 2024 02:00 PM Outpatient Encounter ADMIN PAT ACTIVTIES (MASNONCT) [...] 01:00 PM [facility] Mar 15, 2024 02:00 PM AMBULATORY - MEDICINE [place] Active, Pending, and Scheduled Orders This section includes a listing of several types of active, pending, and scheduled orders, including clinic medications orders, diagnostic test orders, procedure orders and consult orders; where the start date of the order is 45 days before the date of the Encounter or 45 days after the date of theEncounter. The data comes from all [place] treatment facilities. Test Date/Time Test Type Test Details Facility Name Jan 10, 2024 10:02 PM Consult Order COMMUNITY CARE-NEUROLOGY [facility] Delivery [facility] Feb 16, 2024 03:57 PM Consult Order PAIN CLINI C/[facility] OUTPT Cons Delivery [facility] Social History: Smoking Status (Most current) [...] Facil ity Feb 18, 2023 02:31 PM [place]-TOBACCO QUIT 15 YRS OR MORE [facility] Tobacco Use History This section includes a history of the smoking, or tobacco-related health factors, that were collected on or before the date of the Encounter. The data comes from the [place] facility where the Encounter took place. Date/Time Smoking Status/Tobacco Use Comment F acility Feb 18, 2023 02:31 PM [place]-TOBACCO QUIT [facility]RS [facility] Dec 31, 2021 01:00 PM VA-TOBACCO FORMER USER [facility] Dec 31, 2021 01:00 PM [place]-TOBACCO QUIT [facility]RS [facility] [...] 02, 2022 ADVANCE DIRECT[facility] Aug 07, 2021 AD[address] RADHA SAHA [facility] Nov 28, 2020 AD[address]ANCE [address] GOLDIE DUTTA [facility] Encounter Notes: All associated encounter notes This section contains the clinical notes associated to the Encounter. Date/Time Encounter Note(s) Provider Source Jan 02, 2024 02:00 PM ADMINISTRATIVE NOT E: LOCAL TITLE: CCC: SCHEDULING ADMINISTRATION STANDARD TITLE: ADMINISTRATIVE NOTE DATE OF NOTE: JAN 02, 2024@14:00:22 ENTRY DATE: JAN 02, 2024@14:00:22 AUTHOR: DANILELE NEWTON COSIGNER: URGENCY: STATUS: COMPLETED CCC: SCHEDULING ADMINISTRATION Has ADDENDA Patient Demographics Patient Name: ELIZABETH SMILEY JR Patient Primary Phone: [phone] Patient Primary [address]: [address] [place] [id number] Patient : 1960 Patient Age: 63 Caller/Recipient Relation to Patient: Self Administrative Administrative Note Reason: Medication Renewal ID Medications Refill/Renewal Request: Rx # - Medication Name - Dosage - SIG - Number of Refills - Facility - Status [id number] - CLONAZEPAM 0.5MG TAB - 1 TABLET - TAKE ONE TABLET BY MOUTH THREE TIMES A DAY - 0 - [place] - 631BY - ACTIVE Administrative Note Comments: calls to check the status of the clonazepam request. states he will be out tomorrow and would like to pick this up today please. requesting a call at [phone] IMPORTANT: This note was created by [facility] Clinical Contact Center staff. Please do not alert the staff member by adding them as a signer for future communications. Alerts are not monitored by this user. /bienvenido/ DANIELLE AGUDELO 1 THAD AMSA Signed: 01/02/2024 14:00 Receipt Acknowledged By: 01/03/2024 11:30 /es/ LEV OCONNELL MD PHYSICIAN 01/02/2024 14:31 /es/ STEVEN DIAL RN REGISTERED NURSE 01/02/2024 ADDENDUM STATUS: COMPLETED Med has been filled by covering provider. notified. /bienvenido/ STEVEN DIAL RN REGISTERED NURSE Signed: 01/02/2024 14:52 DANIELLE NEWTON [facility]
--- OUTSIDE RECORDS SUMMARY | 2024-02-17 09:36 | XMS_ITS | Encounter Summary ---
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 [place] [facility] [place] Address [address] [place] [address] Care Team Providers Care Data Integration Architect Name Role Phone LEV OCONNELL Primary [...] (PPO) FED EMPLO YE Jan 26, 2020 [id number] ELIZABETH SMILEY JR PATIENT [employer] PREFERRED PROVIDER ORGANIZAT ION (PPO) DWAYNE AL EMPLO YE Feb 25, 2016 [id number] [phone] ELIZABETH SMILEY JR PATIENT [employer] PREFERRED PROVIDER ORGANIZAT ION (PPO) DWAYNE AL EMPL [facility] Feb 25, 2016 [id number] ELIZABETH SMILEY JR PATIENT [employer] PREFERRED PROVIDER ORGANIZAT ION (PPO) DWYANE AL EMPL [facility] Feb 25, 2016 [id number] [phone] ELIZABETH SMILEY PATIENT [employer] PREFERRED PROVIDER ORGANIZAT ION (PPO) DWAYNE AL EMPLO MIMI COOLEY Feb 24, 2016 [id number] ELIZABETH SMILEY PATIENT [employer] PHARMACY MANAGEMENT PRESCRIPT ION DWAYNE AL EMPLO MIMI Jan 26, 2020 [id number] ELIZABETH SMILEY JR PATIENT [employer] PHARMACY MANAGEMENT PRESCRIPT ION ALICIAFT Feb 25, 2016 [id number] ELIZABETH SMILEY PATIENT [employer] PHARMACY MANAGEMENT PRESCRIPT ION DWAYNE AL EMPLO MIMI Feb 25, 2016 [id number] ELIZABETH SMILEY PATIENT [employer] RX PRESCRIPT ION DWAYNE AL EMPLO MIMI Feb 25, 2016 [id number] ELIZABETH SMILEY PATIENT [employer]ET[employer] RX PRESCRIPT ION [facility] Feb 25, 2016 [id number] [phone] ELIZABETH SMILEY JR PATIENT [employer] POINT OF SERVICE [employer] Mar 20, 2002 [id number] ELIZABETH SMILEY PATIENT [employer]* POINT OF SERVICE Mar 20, 2002 [id number] ELIZABETH SMILEY PATIENT Selected Encounter This section includes the information on record at [place] for the Encounter. Date/Time Encounter Type Encounter Description Reason Provider Source Jan 13, 2024 01:00 PM COMPRE OPH EXAM EST PT 1/> OPTOMETRY ICD-10-CM E11.9 Type 2 diabetes mellitus without complications YOHANA NGUYEN [facility] Encounter Template Text not used by [place] Assessments - Encounter Diagnoses This section includes the primary and secondary diagnoses documented for the Encounter. Date/Time Primary/Secondary Diagnosis Diagnosis Name Provider Source Feb 02, 2024 10:23 AM PRIMARY Type 2 diabetes mellitus without complications [facility] Feb 02, 2024 10:23 AM SECONDARY Age-related nuclear cataract, bilateral YOHANA NGUYEN [facility] Feb 02, 2024 10:23 AM SECONDARY Dry eye syndrome of bilateral lacrimal glands YOHANA NGUYEN [facility] Feb 02, 2024 10:23 AM SECONDARY Presbyopia YOHANA NGUYEN [facility] Plan of Treatment: Future Appointments (+ 6 months) and Future Tests (+/- 45 days) The Plan of Treatment section includes future care activities for the patient from all [place] [facility]. This section includes future appointments and future orders which are active, pending or scheduled. Future Appointments This section includes appointments that were scheduled to occur 6 months from the date of the Encounter, up to a maximum of 20 appointments. The data comes from all [facility] facilities. Appointment Date/Time Appointment Type Appointme nt Facility Name Mar 15, 2024 02:00 PM AMBULATORY - MEDICINE [facility] Active, Pending, and Scheduled Orders This section includes a listing of several types of active, pending, and scheduled orders, including clinic medications orders, diagnostic test orders, procedure orders and consult orders; where the start date of the order is 45 days before the date of the Encounter or 45 days after the date of theEncounter. The data comes from all [facility]. Test Date/Time Test Type Test Details Facility Name Jan 10, 2024 10:02 PM Consult Order COMMUNITY CARE-NEUROLOGY [facility] Feb 16, 2024 03:57 PM Consult Order PAIN CLINI C/[facility] OUTPT Cons [facility] Social History: Smoking Status (Most current) [...] 18, 2023 02:31 PM VA-TOBACCO FORMER USER [facility] Tobacco Use History This section includes a history of the smoking, or tobacco-related health factors, that were collected on or before the date of the Encounter. The data comes from the [place] facility where the Encounter took place. Date/Time Smoking Status/Tobacco Use Comment F acility Feb 18, 2023 02:31 PM VA-TOBACCO QUIT 15 YRS OR MORE [place] [facility] [place] [facility] Dec 31, 2021 01:00 PM VA-TOBACCO FORMER USER [place] [facility] [place] [facility] Dec 31, 2021 01:00 PM VA-TOBACCO QUIT 15 YRS OR MORE [place] [facility] [place] [facility] Advance Directives: All historical and current [...] [facility] Encounter Notes: All associated encounter notes This section contains the clinical notes associated to the Encounter. Date/Time Encounter Note(s) Provider Source Jan 13, 2024 12:57 PM OPTOMETRY NOTE: LOCAL TITLE: OPTOMETRY NOTE STANDARD TITLE: OPTOMETRY NOTE DATE OF NOTE: JAN 13, 2024@12:57 ENTRY DATE: JAN 13, 2024@12:57:38 AUTHOR: YOHANA NGUYEN EXP COSIGNER: URGENCY: STATUS: COMPLETED Eye Examination for: ELIZABETH SMILEY, 64 year old DECLINED TO ANSWER MALE MHx: Code Description R25.2 Cramp in lower leg ([facility] 386094737) K59.00 Constipation ([facility] 51046370) D64.9 Anemia ([facility] 978686346) N52.9 Erectile Dysfunction ([facility] 379192582) N18.4 Chronic kidney disease stage 4 ([facility] 212614252) G47.30 Obstructive sleep apnea syndrome ([facility] 17029601) G47.09 Insomnia ([facility] 348397902) M51.16 Lumbar radiculopathy ([facility] 458420441) R69. History of excision of lamina of lumbar vertebra for decompression of spinal cord ([facility] 193744900) J30.9 Allergic rhinitis ([facility] 83072665) V76.51 Screening for Malignant Neoplasms of colon (ICD-9-CM V76.51) N03.1 Focal glomerulonephritis ([facility] 33055597) E66.8 Obesity ([facility] 191725018) E03.9 Hypothyroid ([facility] 25591542) E11.9 Diabetes mellitus type 2 without retinopathy ([facility] [id number]) 185. PROSTATE, MALIGN NEOPLASM (ICD-9-CM 185.) N04.1 Nephrotic syndrome ([facility] 24069024) E78.2 Hyperlipidemia ([facility] 23431479) I10. Benign essential hypertension ([facility] 6593797) SYSTEMIC MEDICATIONS/OCULAR MEDICATIONS: Active Outpatient Medications (including Supplies): Active Outpatient Medications Status 1) ACCU-CHEK GUIDE (GLUCOSE) TEST STRIP USE 1 STRIP TO ACTIVE TEST BLOOD SUGARS TWO TIMES A WEEK NEEDED DIABETES 2) ALCOHOL PREP PAD USE 1 PAD TOPICALLY ONCE DAILY TO ACTIVE CLEAN SKIN FOR INJECTION ETC 3) AMLODIPINE BESYLATE 5MG TAB TAKE ONE TABLET BY MOUTH ACTIVE ONCE DAILY FOR BLOOD PRESSURE/HEART, DO NOT TAKE WITH GRAPEFRUIT JUICE 4) ATORVASTATIN CALCIUM 80MG TAB TAKE ONE-HALF TABLET BY ACTIVE MOUTH ONCE DAILY FOR CHOLESTEROL 5) BACLOFEN 10MG TAB TAKE ONE TABLET BY MOUTH THREE ACTIVE TIMES A DAY FOR MUSCLE RIGIDITY (REPLACES CYCLOBENZAPRINE) 6) CHOLECALCIF 25MCG (D3-1,000UNIT) TAB TAKE ONE TABLET ACTIVE BY MOUTH ONCE DAILY FOR VITAMIN SUPPLEMENTATION 7) CLONAZEPAM 0.5MG TAB TAKE ONE TABLET BY MOUTH THREE ACTIVE TIMES DAILY NEEDED FOR PANIC DISORDER 8) ELECTRODE SPRAY,SIGNASPRAY APPROPRIATE AMOUNT ACTIVE TOPICALLY DIRECTED BY PROVIDER (SIGNA SPRAY REPLACES ALPHA-STIM SOLUTION) 9) EMPAGLIFLOZIN 10MG TAB TAKE ONE TABLET BY MOUTH ONCE HOLD DAILY FOR DIABETES 10) EMPAGLIFLOZIN 25MG TAB TAKE ONE TABLET BY MOUTH ONCE ACTIVE DAILY 11) IRBESARTAN 300MG TAB TAKE ONE TABLET BY MOUTH ONCE ACTIVE DAILY FOR HIGH BLOOD PRESSURE 12) LEVOTHYROXINE NA (SYNTHROID) 100MCG TAB TAKE TWO ACTIVE TABLETS BY MOUTH SUN, FRI, FRI, FRI, FRI, & SAT AND TAKE ONE TABLET ON FRIDAY FOR THYROID - TAKE ON AN EMPTY STOMACH WITH A FULL GLASS OF WATER 13) SEMAGLUTIDE 2MG/0.75ML INJ PEN 3ML INJECT 2MG ACTIVE SUBCUTANEOUSLY ONCE A WEEK FOR TYPE 2 DIABETES MELLITUS Active Non-VA Medications Status 1) Non-VA ACETAMINOPHEN 325MG TAB 325MG BY MOUTH ACTIVE NEEDED 2) Non-VA ASPIRIN 81MG EC TAB 81MG BY MOUTH ONCE DAILY ACTIVE 3) Non-VA FISH OIL 1000MG (500MG DHA/EPA) CAP 1000MG BY ACTIVE MOUTH TWICE DAILY 4) Non-VA MAGNESIUM OXIDE 250MG TAB 500MG BY MOUTH ONCE ACTIVE DAILY 17 Total Medications ALLERGIES: SPIRONOLACTONE, LOVASTATIN, KETOROLAC TROMETHAMINE NONSTEROIDAL ANTI-INFLAMMATORY VITALS (most recent, as listed in the electronic record): B/P: 120/74 (09/04/2023 13:35) Pulse: 64 (09/04/2023 13:35) Temperature: 96.4 F [35.8 C] (09/04/2023 13:35) Weight: 231.2 lb [104.87 kg] (09/04/2023 13:35) Height: 67 in [170.2 cm] (03/01/2019 13:42) BMI: BMI: 36.3 PERTINENT LABS: HEMOGLOBIN A1C TREND Collection DT Spec HGBA1c 08/29/2023 09:00 BLOOD 7.1 H 06/18/2023 07:38 BLOOD 7.4 H 02/21/2023 07:49 BLOOD 7.0 H 11/28/2022 10:27 BLOOD 6.7 H 06/24/2022 07:32 BLOOD 7.6 H Forward from HT note, checked by Attending This 64 year old MALE is seen today for CEE 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 Chief Complaint: Patient states vision is doing well, stable, no changes to report since last visit. No other ocular complaints today. Has not been using AT's as much, states he went from a medium to a small CPAP mask (lost some weight) which has helped with the dry eyes. Notes today he would like to pick a larger size frame for his progressives, also curious about a blue ed tint for comp glasses since he spends 8+ hours a day on the comp. HISTORY AND REVIEW OF SYSTEMS: OHx (+/-)?If Yes, explain: 1. T2 Diabetes without retinopathy or macular edema OU 2. Nuclear Sclerotic Cataracts OU - not visually significant 3. Dry eyes OU - symptomatic and currently uses CPAP 4. Hyperopia with Regular Astigmatism and Presbyopia OU (-) Pain: (-) MCKINNEY: (-) Diplopia: (-) Flashes: (-) Floaters: (-) Amaurosis Fugax/Tia's: (-) Eye Injury: (-) Eye Surgery: (-) TBI FOHx: (+) Glaucoma: paternal grandmother (-) Smoker/Length of Time/PPD: DIABEIC: Yes LAST A1C: Results HEMOGLOBIN A1C PANEL BLOOD (LAV-BLOOD) [facility] #[id number] Collection time: Aug 29, 2023@09:00 Test Name Result Units Range --------- ------ ----- ----- HEMOGLOBIN A1C 7.1 H % 4.0 - 5.6 NEW ALLERGIES TO REPORT: No EYE MEDICATION(S): AT's PRN CURRENT RX WITH BCVA: OD: +1.25-0.50 X090 20/15 OS: +1.25-1.25 X110 20/15-1 Add: +2.75 DVA: ( )SC ( )CC (x)Phoropter ( )CL OD: 20/15-1 OS: 20/15-2 NVA OU: 20/20 MANIFEST REFRACTION(MRx): OD: No change OS: No change ADD: +2.75 20/20 OU CVF: Appear FTFC OU EOMS: Appear Full OU PUPILS: Appear ERRL(-)APD INTRAOCULAR PRESSURE (IOP) METHOD: Goldmann Time: 12:48PM OD: 15 OS: 15 ANTERIOR CHAMBER (AC): Penlight or slit lamp (if available) exam appears unremarkable. Pupils are dilated. Dilation and driving precautions reviewed with patient and patient expresses understanding. Medication: 1% Tropicamide, 2.5% Phenylephrine OU Time: 12:52PM Visual Imaging Performed Today: Additional Comments: Final Rx: OD: +1.25-0.36v848 20/15-1 OS: +1.25-1.44q796 20/15-2 Add: +2.75 SLE: Lids/Lashes: dermatochalasis OU Conjunctiva: white and quiet bulbar conj OU quiet palpebral conj OU Corneas: clear OU Iris: flat and clear OU, (-)NVI OU AC: D & Q OU Angles: 3x3 OU Dilated Fundus Exam: Vit: syneresis OU Lens: 1-2+ NSC OU C/D (Size and Rim Description) OD 0.20 pink and healthy OS 0.20 pink and healthy (-)NVD OU PPole OD clear OS clear (-)DBH/CWS/LIZBET/VB Macula OD flat and clear OS flat and clear (-)CSME OU A/V: normal caliber OU Periphery: flat and intact (-)NVE, holes, tears, detachments 360 OU Assessment/Plan: 1. Type II Diabetes without evidence of retinopathy or macular edema OU -Pt ed re today's findings and the possible ocular health and visual complications associated with diabetes as well as importance of attending follow up appointments -Encouraged blood sugar, blood pressure and lipid control as directed by provider managing diabetes. -Pt ed to report any vision changes PAULIE. -[place] repeated back the plan and education. -Monitor 2. Nuclear Sclerotic Cataracts OU - not visually significant at present -Pt ed re today's findings and the importance of UV protection -Pt ed cataracts may cause reduction of BCVA and symptoms of glare -RTC sooner if vision declines or interferes with ADLs -[place] repeated back the plan and education. -Monitor 3. Dry Eye Syndrome OU - symptomatic -Pt ed re today's findings -Recommend Artificial Tears QID OU, renewed - repeated back the plan and education. -Monitor 4. Refractive Error and Presbyopia OU -Rx updated and ordered per pt request PALx2, SVx1 -Monitor RTC 1 yr or earlier PRN Glasses adjusted/repaired in office: () Yes (x) No If yes, how many pairs: Education: Diabetes: Patient was educated regarding diabetes and related ocular complications including retinopathy and cataract formation as well as other related systemic complications. The importance of good blood sugar control, blood sugar testing as recommended by their PCP and the importance of timely follow up were all emphasized. Medication Reconciliation: Outpatient: Has the patient been taking medications as documented in the EMLR? YES: The patient has been taking medications as documented in the EMLR. Essential Medication List for Review used to complete this medication reconciliation. INCLUDED IN THIS LIST: Alphabetical list of active outpatient prescriptions dispensed from this [facility] (local) and dispensed from another [place] or [place] facility (remote) as well as inpatient orders [...] whether with a VA or non-VA provider. Medication List: [facility] Link Data on this list may not be complete. Please check JLV. Allergies/ADRs (Tool #5) FACILITY ALLERGY/ADR -------- [facility] KETOROLAC TROMETHAMINE [facility] LOVASTATIN [facility] NONSTEROIDAL ANTI-INFLAMMATORY [facility] SPIRONOLACTONE [facility] - DILEEP NONSTEROIDAL ANTI-INFLAMMATORY Med. Reconciliation (Tool #1) INCLUDED IN THIS LIST: Alphabetical list of active outpatient prescriptions dispensed from this [facility] (local) and dispensed from another [place] or [facility] facility (remote) as well as inpatient orders (local pending and active), local clinic medications, locally documented non-VA medications, and local prescriptions that have or been discontinued in the past 90 days. Non-VA Meds Last Documented On: Jul 24, 2022 NOTE The display of VA prescriptions dispensed from another VA or [facility]D facility (remote) is limited to active outpatient prescription entries matched to National Drug File at the originating site and may not include some items such as investigational drugs, compounds, etc. NOT INCLUDED IN THIS LIST: Medications self-entered by the patient into personal health records (i.e. CRAVE) are NOT included in this list. Non-VA medications documented outside this [place], remote inpatient orders (regardless of status) and remote clinic medications are NOT included in this list. The patient and provider must always discuss medications the patient is taking, regardless of where the medication was dispensed or obtained. Non-VA ACETAMINOPHEN 325MG TAB TAKE ONE TABLET BY MOUTH NEEDED Non-VA medication not recommended by VA provider. OUTPT AMLODIPINE BESYLATE 5MG TAB (Status = Active) TAKE ONE TABLET BY MOUTH ONCE DAILY FOR BLOOD PRESSURE/HEART, DO NOT TAKE WITH GRAPEFRUIT JUICE Rx# [id number] Last Released: 12/03/23 Qty/Days Supply: 90 Rx Expiration Date: 05/27/24 Refills Remainin Non-VA ASPIRIN 81MG EC TAB TAKE ONE TABLET BY MOUTH ONCE DAILY Non-VA medication not recommended by VA provider. OUTPT ATORVASTATIN CALCIUM 80MG TAB (Status = Active) TAKE ONE-HALF TABLET BY MOUTH ONCE DAILY FOR CHOLESTEROL Rx# [id number] Last Released: 11/10/23 Qty/Days Supply: 45 Rx Expiration Date: 08/18/24 Refills Remainin OUTPT BACLOFEN 10MG TAB (Status = Active) TAKE ONE TABLET BY MOUTH THREE TIMES A DAY FOR MUSCLE RIGIDITY (REPLACES CYCLOBENZAPRINE) Rx# [id number] Last Released: 11/10/23 Qty/Days Supply: 270 Rx Expiration Date: 02/19/24 Refills Remainin Indication: FOR MUSCLE SPASMS OUTPT CARBOXYMETHYLCELLULOSE NA 0.5% OPH SOLN (Status = ) INSTILL 1 DROP INTO EACH EYE FOUR TIMES A DAY FOR DRY EYE Rx# [id number] Last Released: 01/14/23 Qty/Days Supply: 45 Rx Expiration Date: 01/08/24 Refills Remainin Indication: FOR DRY EYE OUTPT CARBOXYMETHYLCELLULOSE NA 0.5% OPH SOLN (Status = Pending) INSTILL 1 DROP INTO EACH EYE FOUR TIMES A DAY FOR DRY EYE Renewed from Rx# [id number] Qty/Days Supply: 45 Login Date: 01/13/24 Refills Ordered: 3 OUTPT CHOLECALCIF 25MCG (D3-1,000UNIT) TAB (Status = Active) TAKE ONE TABLET BY MOUTH ONCE DAILY FOR VITAMIN SUPPLEMENTATION Rx# [id number] Last Released: 11/12/23 Qty/Days Supply: 100/90 Rx Expiration Date: 03/06/24 Refills Remainin OUTPT CLONAZEPAM 0.5MG TAB (Status = Discontinued) TAKE ONE TABLET BY MOUTH THREE TIMES A DAY Rx# [id number] Last Released: 12/03/23 Qty/Days Supply: Rx Expiration Date: 01/03/24 Refills Remainin Indication: MUSCLE CRAMPS OUTPT CLONAZEPAM 0.5MG TAB (Status = Active) TAKE ONE TABLET BY MOUTH THREE TIMES DAILY NEEDED FOR PANIC DISORDER Rx# [id number] Last Released: 01/02/24 Qty/Days Supply: Rx Expiration Date: 07/04/24 Refills Remainin Indication: FOR PANIC DISORDER OUTPT EMPAGLIFLOZIN 10MG TAB (Status = On Hold) TAKE ONE TABLET BY MOUTH ONCE DAILY FOR DIABETES Rx# [id number] Last Released: 11/08/23 Qty/Days Supply: Rx Expiration Date: 08/11/24 Refills Remainin OUTPT EMPAGLIFLOZIN 25MG TAB (Status = Active) TAKE ONE TABLET BY MOUTH ONCE DAILY Rx# [id number] Last Released: 11/28/23 Qty/Days Supply: Rx Expiration Date: 11/26/24 Refills Remainin Non-VA FISH OIL 1000MG (500MG DHA/EPA) CAP TAKE 1 CAPSULE BY MOUTH TWICE DAILY Non-VA medication recommended by VA provider. OUTPT IRBESARTAN 300MG TAB (Status = Active) TAKE ONE TABLET BY MOUTH ONCE DAILY FOR HIGH BLOOD PRESSURE Rx# [id number] Last Released: 10/14/23 Qty/Days Supply: Rx Expiration Date: 09/04/24 Refills Remainin Indication: FOR HIGH BLOOD PRESSURE OUTPT LEVOTHYROXINE NA (SYNTHROID) 100MCG TAB (Status = Active) TAKE TWO TABLETS BY MOUTH FRI, FRI, FRI, FRI, FRI, & FRI AND TAKE ONE TABLET ON FRIDAY FOR THYROID - TAKE ON AN EMPTY STOMACH WITH A FULL GLASS OF WATER Rx# [id number] Last Released: 01/01/24 Qty/Days Supply: Rx Expiration Date: 10/06/24 Refills Remainin OUTPT LUBRICATING (PF) OPH OINT (Status = ) APPLY THIN RIBBON INTO EACH EYE AT BEDTIME FOR DRY EYE Rx# [id number] Last Released: 04/09/23 Qty/Days Supply: Rx Expiration Date: 01/08/24 Refills Remainin Indication: FOR DRY EYE Non-VA MAGNESIUM OXIDE 250MG TAB TAKE TWO TABLETS BY MOUTH ONCE DAILY Non-VA medication not recommended by VA provider. OUTPT SEMAGLUTIDE 1MG/0.75ML INJ PEN 3ML (Status = Discontinued) INJECT 1MG SUBCUTANEOUSLY ONCE A WEEK FOR TYPE 2 DIABETES MELLITUS Rx# [id number] Last Released: 12/16/23 Qty/Days Supply: 03/16 Rx Expiration Date: 07/02/24 Refills Remainin Indication: FOR TYPE 2 DIABETES MELLITUS OUTPT SEMAGLUTIDE 2MG/0.75ML INJ PEN 3ML (Status = Active) INJECT 2MG SUBCUTANEOUSLY ONCE A WEEK FOR TYPE 2 DIABETES MELLITUS Rx# [id number] Last Released: 01/12/24 Qty/Days Supply: Rx Expiration Date: 01/12/25 Refills Remainin Indication: FOR TYPE 2 DIABETES MELLITUS SUPPLIES OUTPT ACCU-CHEK GUIDE (GLUCOSE) TEST STRIP (Status = Active) USE 1 STRIP TO TEST BLOOD SUGARS TWO TIMES A WEEK NEEDED DIABETES Rx# [id number] Last Released: 12/15/23 Qty/Days Supply: 50 Rx Expiration Date: 12/09/24 Refills Remainin Indication: DIABETES OUTPT ALCOHOL PREP PAD (Status = Active) USE 1 PAD TOPICALLY ONCE DAILY TO CLEAN SKIN FOR INJECTION ETC Rx# [id number] Last Released: 04/04/23 Qty/Days Supply: 200/ Rx Expiration Date: 04/01/24 Refills Remainin Indication: FOR USE WITH INJECTIONS OUTPT ELECTRODE SPRAY,SIGNASPRAY (Status = Active) APPROPRIATE AMOUNT TOPICALLY DIRECTED BY PROVIDER (SIGNA SPRAY REPLACES ALPHA-STIM SOLUTION) Rx# [id number] Last Released: 08/19/23 Qty/Days Supply: 250/90 Rx Expiration Date: 08/18/24 Refills Remainin Indication: FOR USE WITH ALPHA-STIM THERAPY PHARMACY TERMS AND POSSIBLE PATIENT ACTIONS INPT = [place] inpatient order IV = [place] intravenous medication OUTPT = [place] outpatient prescription PHARMACY POSSIBLE PATIENT TERMS EXPLANATION ACTIONS -------- - ACTIVE A prescription that can be If you have refills, filled at the local [place] pharmacy. you may request a refill of this prescription from your VA pharmacy. CLINIC A medication you received during If you have questions a visit to a [place] clinic or about this medication emergency department. contact your [place] healthcare team. DISCONTINUED A prescription your provider has Contact your VA stopped. It is no longer healthcare team if you available to be sent to you or need more of this picked up at the [place] pharmacy medication. window. A prescription which is too old Contact your VA to fill. This does not refer to healthcare team if you the expiration date of the need more of this medication in the container. medication. NON-VA A medication that came from If this medication someplace other than a VA information is pharmacy. This may be a incorrect or out of prescription from either the VA date, please tell your or non VA providers that was VA healthcare team. filled outside the VA. Or, it may be an sndd-onc-jodorbq (OTC), herbal, dietary supplements or sample medication. ON HOLD An active prescription that will Contact your VA not be filled until pharmacy pharmacy when you need resolves the issue. more of this medication. PARKED An active prescription that will Contact your VA not be filled until the patient pharmacy when you need requests it. this medication. PENDING This prescription order has been If you have been sent to the pharmacy for review instructed to start and is not ready yet. this medication now, contact your VA pharmacy. SUSPENDED An active prescription that is Contact your VA not scheduled to be filled yet. pharmacy if you need You should receive it before this medication now. you run out. 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 Cramp in lower leg 2. Constipation 3. Anemia (SCT 562867819) 4. Erectile Dysfunction (SCT 129908557) 5. Chronic kidney disease stage 4 6. Obstructive sleep apnea syndrome 7. Insomnia 8. Lumbar radiculopathy 9. History of excision of lamina of lumbar vertebra for decompression of spinal 10. Allergic rhinitis 11. Screening for Malignant Neoplasms of colon 12. Focal glomerulonephritis (SNOMED CT 94959043) 13. Obesity (SNOMED CT 981244879) 14. Hypothyroid (SNOMED CT 92331627) 15. Diabetes mellitus type 2 without retinopathy (SNOMED CT 3158575176038) 16. PROSTATE, MALIGN NEOPLASM 17. Nephrotic syndrome 18. Hyperlipidemia (SNOMED CT 01953205) 19. Benign essential hypertension (SNOMED CT 0120165) Active Outpatient Medications (including Supplies): Active Outpatient Medications Status 1) ACCU-CHEK GUIDE (GLUCOSE) TEST STRIP USE 1 STRIP TO ACTIVE TEST BLOOD SUGARS TWO TIMES A WEEK NEEDED DIABETES 2) ALCOHOL PREP PAD USE 1 PAD TOPICALLY ONCE DAILY TO ACTIVE CLEAN SKIN FOR INJECTION ETC 3) AMLODIPINE BESYLATE 5MG TAB TAKE ONE TABLET BY MOUTH ACTIVE ONCE DAILY FOR BLOOD PRESSURE/HEART, DO NOT TAKE WITH GRAPEFRUIT JUICE 4) ATORVASTATIN CALCIUM 80MG TAB TAKE ONE-HALF TABLET BY ACTIVE MOUTH ONCE DAILY FOR CHOLESTEROL 5) BACLOFEN 10MG TAB TAKE ONE TABLET BY MOUTH THREE ACTIVE TIMES A DAY FOR MUSCLE RIGIDITY (REPLACES CYCLOBENZAPRINE) 6) CHOLECALCIF 25MCG (D3-1,000UNIT) TAB TAKE ONE TABLET ACTIVE BY MOUTH ONCE DAILY FOR VITAMIN SUPPLEMENTATION 7) CLONAZEPAM 0.5MG TAB TAKE ONE TABLET BY MOUTH THREE ACTIVE TIMES DAILY NEEDED FOR PANIC DISORDER 8) ELECTRODE SPRAY,SIGNASPRAY APPROPRIATE AMOUNT ACTIVE TOPICALLY DIRECTED BY PROVIDER (SIGNA SPRAY REPLACES ALPHA-STIM SOLUTION) 9) EMPAGLIFLOZIN 10MG TAB TAKE ONE TABLET BY MOUTH ONCE HOLD DAILY FOR DIABETES 10) EMPAGLIFLOZIN 25MG TAB TAKE ONE TABLET BY MOUTH ONCE ACTIVE DAILY 11) IRBESARTAN 300MG TAB TAKE ONE TABLET BY MOUTH ONCE ACTIVE DAILY FOR HIGH BLOOD PRESSURE 12) LEVOTHYROXINE NA (SYNTHROID) 100MCG TAB TAKE TWO ACTIVE TABLETS BY MOUTH FRI, FRI, FRI, FRI, FRI, & FRI AND TAKE ONE TABLET ON FRIDAY FOR THYROID - TAKE ON AN EMPTY STOMACH WITH A FULL GLASS OF WATER 13) SEMAGLUTIDE 2MG/0.75ML INJ PEN 3ML INJECT 2MG ACTIVE SUBCUTANEOUSLY ONCE A WEEK FOR TYPE 2 DIABETES MELLITUS Active Non-VA Medications Status 1) Non-VA ACETAMINOPHEN 325MG TAB 325MG BY MOUTH ACTIVE NEEDED 2) Non-VA ASPIRIN 81MG EC TAB 81MG BY MOUTH ONCE DAILY ACTIVE 3) Non-VA FISH OIL 1000MG (500MG DHA/EPA) CAP 1000MG BY ACTIVE MOUTH TWICE DAILY 4) Non-VA MAGNESIUM OXIDE 250MG TAB 500MG BY MOUTH ONCE ACTIVE DAILY 17 Total Medications Allergies: SPIRONOLACTONE, LOVASTATIN, KETOROLAC TROMETHAMINE NONSTEROIDAL ANTI-INFLAMMATORY All medications including those prescribed by outside VA's, community providers, and all OTC meds were reviewed and reconciled with patient to the best of their abilities. This 64 year old MALE is seen today for CEE 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 Chief Complaint: Patient states vision is doing well, stable, no changes to report since last visit. No other ocular complaints today. Has not been using AT's as much, states he went from a medium to a small CPAP mask (lost some weight) which has helped with the dry eyes. Notes today he would like to pick a larger size frame for his progressives, also curious about a blue ed tint for comp glasses since he spends 8+ hours a day on the comp. HISTORY AND REVIEW OF SYSTEMS: OHx (+/-)?If Yes, explain: 1. T2 Diabetes without retinopathy or macular edema OU 2. Nuclear Sclerotic Cataracts OU - not visually significant 3. Dry eyes OU - symptomatic and currently uses CPAP 4. Hyperopia with Regular Astigmatism and Presbyopia OU (-) Pain: (-) MCKINNEY: (-) Diplopia: (-) Flashes: (-) Floaters: (-) Amaurosis Fugax/Tia's: (-) Eye Injury: (-) Eye Surgery: (-) TBI FOHx: (+) Glaucoma: paternal grandmother (-) Smoker/Length of Time/PPD: DIABEIC: Yes LAST A1C: Results HEMOGLOBIN A1C PANEL BLOOD (LAV-BLOOD) [facility] #[id number] Collection time: Aug 29, 2023@09:00 Test Name Result Units Range --------- ------ ----- ----- HEMOGLOBIN A1C 7.1 H % 4.0 - 5.6 NEW ALLERGIES TO REPORT: No EYE MEDICATION(S): AT's PRN CURRENT RX WITH BCVA: OD: +1.25-0.50 X090 20/15 OS: +1.25-1.25 X110 20/15-1 Add: +2.75 DVA: ( )SC ( )CC (x)Phoropter ( )CL OD: 20/15-1 OS: 20/15-2 NVA OU: 20/20 MANIFEST REFRACTION(MRx): OD: No change OS: No change ADD: +2.75 20/20 OU CVF: Appear FTFC OU EOMS: Appear Full OU PUPILS: Appear ERRL(-)APD INTRAOCULAR PRESSURE (IOP) METHOD: Goldmann Time: 12:48PM OD: 15 OS: 15 ANTERIOR CHAMBER (AC): Penlight or slit lamp (if available) exam appears unremarkable. Pupils are dilated. Dilation and driving precautions reviewed with patient and patient expresses understanding. Medication: 1% Tropicamide, 2.5% Phenylephrine OU Time: 12:52PM Visual Imaging Performed Today: Additional Comments: /bienvenido/ Nasima Hester Optometry Health Logistics Planner Signed: 01/13/2024 12:55 NASIMA HESTER CNTRL [facility]
--- OUTSIDE RECORDS SUMMARY | 2024-02-17 09:36 | XMS_ITS | Encounter Summary ---
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 [place] Organization [facility] Address [address] [place] [address] Care Team Providers Care Top Hat Body Maker Name Role Phone LEV OCONNELL Primary Care [...] [facility] Jan 26, 2020 [id number] ELIZABETH SMILEY JR PATIENT [employer] PREFERRED PROVIDER ORGANIZAT ION (PPO) DWAYNE AL EMPLO [facility] Feb 25, 2016 [id number] [phone] ELIZABETH SMILEY JR PATIENT [employer] PREFERRED PROVIDER ORGANIZAT ION (PPO) DWAYNE AL EMPL [facility] Feb 25, 2016 [id number] [phone] ELIZABETH SMILEY JR PATIENT [employer] PREFERRED PROVIDER ORGANIZAT ION (PPO) DWAYNE AL EMPL [facility] Feb 25, 2016 [id number] [id number] ELIZABETH SMILEY PATIENT [employer] PREFERRED PROVIDER ORGANIZAT ION (PPO) DWAYNE MORALESO MIMI COOLEY Feb 24, 2016 [id number] ELIZABETH SMILEY PATIENT [employer] PHARMACY MANAGEMENT PRESCRIPT ION DWAYNE AL EMPLO MIMI Jan 26, 2020 [id number] ELIZABETH SMILEY JR PATIENT [employer] PHARMACY MANAGEMENT PRESCRIPT ION DAIANA Feb 25, 2016 [id number] ELIZABETH SMILEY PATIENT [employer] PHARMACY MANAGEMENT PRESCRIPT ION DWAYNE AL EMPLO MIMI Feb 25, 2016 [id number] ELIZABETH SMILEY PATIENT [employer] RX PRESCRIPT ION DWAYNE AL EMPLO MIMI Feb 25, 2016 [id number] ELIZABETH SMILEY PATIENT [employer]ET[employer] RX PRESCRIPT ION [facility] Feb 25, 2016 [id number] [id number] BALJIT ELIZABETH BELCHER PATIENT [employer] POINT OF SERVICE [employer] Mar 20, 2002 [id number] ELIZABETH SMILEY PATIENT [employer]* POINT OF SERVICE Mar 20, 2002 [id number] ELIZABETH SMILEY PATIENT Selected Encounter This section includes the information on record at [place] for the Encounter. Date/Time Encounter Type Encounter Description Reason Pro vider Source Jan 07, 2024 10:00 AM Outpatient Encounter TELEPHONE TRIAGE IHE Encounter [...] [facility] Mar 15, 2024 02:00 PM [facility] Active, Pending, and Scheduled Orders This section includes a listing of several types of active, pending, and scheduled orders, including clinic medications orders, diagnostic test orders, procedure orders and consult orders; where the start date of the order is 45 days before the date of the Encounter or 45 days after the date of theEncounter. The data comes from all [place] treatment facilities. Test Date/Time Test Type Test Details Facility Name Jan 10, 2024 10:02 PM Consult Order COMMUNITY CARE-NEUROLOGY [facility] Feb 16, 2024 03:57 PM Consult Order PAIN CLINI C/[facility]M OUTPT Cons [facility] Social History: Smoking Status (Most current) and [...] 2023 02:31 PM VA-TOBACCO FORMER USER [facility] Tobacco Use History This section includes a history of the smoking, or tobacco-related health factors, that were collected on or before the date of the Encounter. The data comes from the [place] facility where the Encounter took place. Date/Time Smoking Status/Tobacco Use Comment F acility Feb 18, 2023 02:31 PM VA-TOBACCO QUIT [facility]RS [facility] Dec 31, 2021 01:00 PM [facility] Dec 31, 2021 01:00 PM NE-TOBACCO QUIT 15 YRS OR MORE [facility] Advance Directives: All historical and [...] Aug 07, 2021 ADVANCE DIRECTIVE RADHA SAHA [facility] Nov 28, 2020 ADVANCE DIRECTIVE GOLDIE DUTTA [facility] Encounter Notes: All associated encounter notes This section contains the clinical notes associated to the Encounter. Date/Time Encounter Note(s) Provider Source Jan 08, 2024 08:41 AM ADDENDUM: LOCAL TITLE: Addendum STANDARD TITLE: ADDENDUM DATE OF NOTE: JAN 08, 2024@08:41:37 ENTRY DATE: JAN 08, 2024@08:41:39 AUTHOR: STEVEN DIAL COSIGNER: URGENCY: STATUS: COMPLETED AMSA -- Please request for recent Endocrinology office note from LUNA Marinelli. Thank you. /bienvenido/ STEVEN DIAL RN REGISTERED NURSE Signed: 01/08/2024 08:43 Receipt Acknowledged By: 01/08/2024 11:46 /es/ SANDRA BROOKS AMSA === --- Original Document --- 01/07/24 CCC: CLINICAL TRIAGE: Patient Demographics Patient Name: ELIZABETH Argueta BALJIT BELCHER Patient Primary Address: [address] [place] [address] Patient Primary Phone: [phone] Patient : 1960 Patient Age: 63 Caller/Recipient Relation to Patient: Self Caller Name: ELIZABETH STEWARTBERNARDINO BELCHER Emergency Contact: YVES SMILEY Triage Summary Chief Complaint: Elevated Blood Sugar (diabetes) System WHEN: Within 2 Weeks Nurse's Recommendation / WHEN: Within 2 Weeks System WHERE: Clinic Nurse's Recommendation / WHERE: Clinic/[facility] Patient Disposition Patient/Caregiver agrees to plan of care: Yes Nursing Plan and Disposition Other course(s) of action Generated msg to PACT/Provider Provided guidance for worsening symptoms: *Caller/Patient* advised to call facilities [place] Clinical Contact Center or seek immediate medical attention for new or worsening symptoms Nurse Summary Nurse Summary: See symptom response list as below Calls r/t elevated BS States his BS has been 150-170 He is f/b Non-VA Endo, seen 12/31 and it was recommended he increase Ozempic form 1 mg to 2 mg States the change in dose was sent to [place], however has not been changed yet Yesterday was seen for cortisone injection and has had elevated BS since 733am BS 240, 16 pretzels, 2 cups of coffee w/ light cream. Recheck BS 297 States he feels good. Typically his BS will return to normal w/in 24 hours of injection (received yesterday around noon) He will continue to monitor, advised if continues to elevate to contact non-VA Endocrine and/or report to local via [facility] (Health MD ) Informed him I will alert pact team for plan of care, question PCP f/u indicated per triage and to alert to medication change request. Plan: -Defer to pact team if PCP f/u indicated per triage (Has been instructed to contact non-VA Endo and/or reprot to as above) -Defer to pact team for updated Ozempic dose per non-VA Endo, per patient request for med change sent to [place]. 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 Call back requested @ Non-VA Endo Dr Cowan [facility] Clinical Contact Center Codes Clinic/Location: V1 CWM PHONE [facility] RN Decision Support System Output: Triage Complete Triage Date: 01/07/2024, 09:39 AM Triage Note: Decision Support Tool Used: TXCC Phone Triage 07 Jan 2024 14:39:00 +0000 [facility] Demographics 64 y/o Male Results CC: Elevated Blood Sugar (diabetes) Software suggested: Within 2 Weeks Software suggested follow-up location: [facility] Values and Measures FSB mg / dL Duration of CC: 1 Days Positive Responses HPI: serum glucose measurement performed within 2 hours of eating VS: FBG not performed Negative Responses Denies: MEDS: insulin IMPORTANT: This note was created by [facility] Clinical Contact Center staff. Please do not alert the staff member by adding them as a signer for future communications. Alerts are not monitored by this user. /bienvenido/ KYLE MARTINEZ BSJonathan, radio mechanic helper Nurse Signed: 01/07/2024 10:00 Receipt Acknowledged By: * AWAITING SIGNATURE * MAXIMO HOFFMAN * AWAITING SIGNATURE * STEVEN DIAL STEVEN [place] [facility] Jan 07, 2024 10:00 AM RN PROGRESS NOTE: LOCAL TITLE: CCC: CLINICAL TRIAGE STANDARD TITLE: RN PROGRESS NOTE DATE OF NOTE: JAN 07, 2024@10:00:17 ENTRY DATE: JAN 07, 2024@10:00:18 AUTHOR: KYLE MARTINEZ COSIGNER: URGENCY: STATUS: COMPLETED CCC: CLINICAL TRIAGE Has ADDENDA Patient Demographics Patient Name: ELIZABETH STEWARTBERNARDINO BELCHER Patient Primary Address: [address] [place] [address] Patient Primary Phone: [phone] Patient : 1960 Patient Age: 63 Caller/Recipient Relation to Patient: Self Caller Name: EILZABETH Argueta BALJIT BELCHER Emergency Contact: YVES SMILEY Triage Summary Chief Complaint: Elevated Blood Sugar (diabetes) System WHEN: Within 2 Weeks Nurse's Recommendation / WHEN: Within 2 Weeks System WHERE: Clinic Nurse's Recommendation / WHERE: Clinic/[facility] Patient Disposition Patient/Caregiver agrees to plan of care: Yes Nursing Plan and Disposition Other course(s) of action Generated msg to PACT/Provider Provided guidance for worsening symptoms: *Caller/Patient* advised to call facilities [place] Clinical Contact Center or seek immediate medical attention for new or worsening symptoms Nurse Summary Nurse Summary: See symptom response list as below Calls r/t elevated BS States his BS has been 150-170 He is f/b Non-VA Endo, seen 12/31 and it was recommended he increase Ozempic form 1 mg to 2 mg States the change in dose was sent to [place], however has not been changed yet Yesterday was seen for cortisone injection and has had elevated BS since 733am BS 240, 16 pretzels, 2 cups of coffee w/ light cream. Recheck BS 297 States he feels good. Typically his BS will return to normal w/in 24 hours of injection (received yesterday around noon) He will continue to monitor, advised if continues to elevate to contact non-VA Endocrine and/or report to local via [employer] (Health ) Informed him I will alert pact team for plan of care, question PCP f/u indicated per triage and to alert to medication change request. Plan: -Defer to pact team if PCP f/u indicated per triage (Has been instructed to contact non-VA Endo and/or reprot to UC as above) -Defer to pact team for updated Ozempic dose per non-VA Endo, per patient request for med change sent to [place]. 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 Call back requested @ Non-VA Endo LUNA Marinelli Clinical Contact Center Codes Clinic/Location: CWM PHONE [facility] RN Decision Support System Output: Triage Complete Triage Date: 01/07/2024, 09:39 AM Triage Note: Decision Support Tool Used: VTCC Phone Triage Fri, 07 Jan 2024 14:39:00 +0000 [facility] Demographics 64 y/o Male Results CC: Elevated Blood Sugar (diabetes) Software suggested: Within 2 Weeks Software suggested follow-up location: [facility] Values and Measures FSB mg / dL Duration of CC: 1 Days Positive Responses HPI: serum glucose measurement performed within 2 hours of eating VS: FBG not performed Negative Responses Denies: MEDS: insulin IMPORTANT: This note was created by [facility] Clinical Contact Center staff. Please do not alert the staff member by adding them as a signer for future communications. Alerts are not monitored by this user. /bievnenido/ KYLE SHANKS, radio mechanic helper Nurse Signed: 01/07/2024 10:00 Receipt Acknowledged By: 01/11/2024 22:02 /bienvenido/ MAXIMO HOFFMAN LPN LPN 2024 12:48 /bienvenido/ STEVEN DIAL RN REGISTERED NURSE 01/08/2024 ADDENDUM STATUS: COMPLETED AMSA -- Please request for recent Endocrinology office note from LUNA Marinelli. Thank you. /bienvenido/ STEVEN DIAL RN REGISTERED NURSE Signed: 01/08/2024 08:43 Receipt Acknowledged By: 01/08/2024 11:46 /es/ SANDRA MENESES 01/08/2024 ADDENDUM STATUS: COMPLETED Records requested from Dr. Myla Cowan M.D. as directed [facility] Endorcrinology /bienvenido/ SANDRA MENESES Signed: 01/08/2024 11:47 2024 ADDENDUM STATUS: COMPLETED Office notes receieved. Per Office note encounter Date 01/01/[address] [facility] - Dr Cowan: Type 2 diabetes with nephropathy - Primary Control reasonable, not optimal, HbA1c remains> target despite increase in ozempic at last visit, but has been in a lot of pain/less active w/ back pain & getting intermittent steroid injections. Will increase ozempic to 2 mg weekly. Given renal function would not anticipate a significant glycemic benefit from the empagliflozin. PCP notified. Please see Outpatient Medication request Note on 01/09/24. /es/ STEVEN DIAL RN REGISTERED NURSE Signed: 2024 12:47 KYLE MARTINEZ RN NE CNTRL [facility]
--- OUTSIDE RECORDS SUMMARY | 2024-02-17 09:36 | XMS_ITS | Encounter Summary ---
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 [place] [facility] Address [address] [place] [address] Care Team Providers Care Brick Tosser Name Role Phone LEV OCONNELL Primary Care [...] PREFERRED PROVIDER ORGANIZAT ION (PPO) FED EMPLO [facility] Jan 26, 2020 [id number] [phone] ELIZABETH SMILEY JR PATIENT [employer] PREFERRED PROVIDER ORGANIZAT ION (PPO) DWAYNE AL EMPLO [facility] Feb 25, 2016 [id number] ELIZABETH SMILEY JR PATIENT [employer] PREFERRED PROVIDER ORGANIZAT ION (PPO) DWAYNE AL EMPL [facility] Feb 25, 2016 [id number] [phone] ELIZABETH SMILEY JR PATIENT [employer] PREFERRED PROVIDER ORGANIZAT ION (PPO) DWAYNE AL EMPL [facility] Feb 25, 2016 [id number] ELIZABETH SMILEY PATIENT [employer] PREFERRED PROVIDER ORGANIZAT ION (PPO) DWAYNE AL MIO MIMI COOLEY Feb 24, 2016 [id number] ELIZABETH SMILEY PATIENT [employer] PHARMACY MANAGEMENT PRESCRIPT ION DWAYNE AL EMPLO MIMI Jan 26, 2020 [id number] ELIZABETH SMILEY JR PATIENT [employer] PHARMACY MANAGEMENT PRESCRIPT ION DAIANA Feb 25, 2016 [id number] ELIZABETH SMILEY PATIENT [employer] PHARMACY MANAGEMENT PRESCRIPT ION DWAYNE AL EMPLO MIMI Feb 25, 2016 [id number] ELIZABETH SMILEY PATIENT [employer] RX PRESCRIPT ION DWAYNE AL EMPLO MIMI Feb 25, 2016 [id number] ELIZABETH SMILEY PATIENT AETNA RX PRESCRIPT [facility] Feb 25, 2016 [id number] [id number] ELIZABETH SMILEY JR PATIENT [employer] POINT OF SERVICE [employer] Mar 20, 2002 [id number] ELIZABETH SMILEY PATIENT [employer]* POINT OF SERVICE Mar 20, 2002 [id number] ELIZABETH SMILEY PATIENT Selected Encounter This section includes the information on record at [place] for the Encounter. Date/Time Encounter Type Encounter Description Reason Pro vider Source Dec 31, 2023 12:40 PM Outpatient Encounter PRIMARY CARE/MEDICINE IHE Encounter [...] 13, 2024 01:00 PM AM[facility]ULATORY - [facility]IC[facility] [place] [facility] Mar 15, 2024 02:00 PM AMBULATORY - MEDICINE [facility] Active, Pending, and Scheduled Orders This section includes a listing of several types of active, pending, and scheduled orders, including clinic medications orders, diagnostic test orders, procedure orders and consult orders; where the start date of the order is 45 days before the date of the Encounter or 45 days after the date of theEncounter. The data comes from all [place] treatment facilities. Test Date/Time Test Type Test Details Facility Name Jan 10, 2024 10:02 PM Consult Order [facility] Global Position System Technician's [facility] Social History: Smoking Status (Most current) [...] 18, 2023 02:31 PM VA-TOBACCO FORMER USER [facility] Tobacco Use History This section includes a history of the smoking, or tobacco-related health factors, that were collected on or before the date of the Encounter. The data comes from the [place] facility where the Encounter took place. Date/Time Smoking Status/Tobacco Use Comment F acility Feb 18, 2023 02:31 PM [place] [address] [facility] Dec 31, 2021 01:00 PM [facility] Dec 31, 2021 01:00 PM [place]-TO[place]ACCO QUIT 15 YRS OR MORE [facility] Advance Directives: All historical and current [...] ADVANCE DIRECTIVE RADHA SAHA [facility] Nov 28, 2020 ADVANCE DIRECTIVE GOLDIE DUTTA [facility] Encounter Notes: All associated encounter notes This section contains the clinical notes associated to the Encounter. Date/Time Encounter Note(s) Provider Source Dec 31, 2023 12:40 PM PRIMARY CARE NOTE: LOCAL TITLE: WALK-IN NOTE PRIMARY CARE (T) STANDARD TITLE: PRIMARY CARE NOTE DATE OF NOTE: DEC 31, 2023@12:40 ENTRY DATE: DEC 31, 2023@12:40:36 AUTHOR: AMARIS GUAN EXP COSIGNER: URGENCY: STATUS: COMPLETED <====Click to Start Advanced Medical Support [facility] presents to the Primary Care clinic with the following request: [ X ]Medication Renewal/Refill [ ]Consultation with Team RN [ ]Symptoms [ ]Other The [facility] states they are: [ ]Waiting [ X ]Not Waiting No Walk in visit scheduled with PACT Nurse [ X ] At this encounter the 's demographics were verified. [ X ] At this encounter the 's Insurance information was verified. [ X ] At this encounter the below scheduled visits for the [facility] were discussed and appointment reminder card was offered. Future appointments: 01/13/2024 13:00 NHM/OPTOMETRY/NGUYEN/ 03/15/2024 14:00 CWM/SO/PACT 5 [facility] is requesting a renewal on Clonazepam .5 mg, he will tow picker when ready. /bienvenido/ AMARIS GUAN ADVANCED EXCEPTIONAL CHILDREN'S TEACHER Signed: 12/31/2023 12:42 Receipt Acknowledged By: 12/31/2023 14:55 /es/ MAXIMO HOFFMAN LPN LPN 01/02/2024 14:31 /bienvenido/ STEVEN DIAL RN REGISTERED NURSE AMARIS GUAN
--- OUTSIDE RECORDS SUMMARY | 2024-02-17 09:36 | XMS_ITS ---
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 Address [address] [place] [address] Care Team Providers Care Radiology Supervisor Name Role Phone LEV OCONNELL Primary [...] (PPO) FED EMPLO YEES Jan 26, 2020 [id number] ELIZABETH SMILEY JR PATIENT [employer]ETNA PREFERRED PROVIDER ORGANIZAT ION (PPO) DWAYNE AL EMPL [facility] Feb 25, 2016 [id number] [phone] ELIZABETH SMILEY JR PATIENT AETNA PREFERRED PROVIDER ORGANIZAT ION (PPO) DWAYNE AL EMPL [facility] Feb 25, 2016 [id number] ELIZABETH SMILEY PATIENT AETNA PREFERRED PROVIDER ORGANIZAT ION (PPO) DWAYNE AL EMPLO YE Feb 25, 2016 [id number] ELIZABETH SMILEY JR PATIENT AETNA PREFERRED PROVIDER ORGANIZAT ION (PPO) DWAYNE MORALESO MIMI COOLEY Feb 24, 2016 [id number] ELIZABETH SMILEY PATIENT AETNA PHARMACY MANAGEMENT PRESCRIPT ION DWAYNE AL DEEP COOLEY Jan 26, 2020 [id number] ELIZABETH SMILEY JR PATIENT AETNA PHARMACY MANAGEMENT PRESCRIPT ION DWAYNE MORALESO MIMI Feb 25, 2016 [id number] ELIZABETH SMILEY PATIENT AETNA PHARMACY MANAGEMENT PRESCRIPT ION DAIANA Feb 25, 2016 [id number] ELIZABETH SMILEY PATIENT AETNA RX PRESCRIPT ION DWAYNE AL MIO MIMI COOLEY Feb 25, 2016 [id number] ELIZABETH SMILEY PATIENT AETNA RX PRESCRIPT ION [facility] Feb 25, 2016 [id number] ELIZABETH SMILEY JR PATIENT [employer]IGNA POINT OF SERVICE TYCO Mar 20, 2002 [id number] ELIZABETH SMILEY PATIENT CIGNA* POINT OF SERVICE Mar 20, 2002 [id number] [phone] ELIZABETH SMILEY PATIENT Selected Encounter This section includes the information on record at [place] for the Encounter. Date/Time Encounter Type Encounter Description Reason Pro vider Source Jan 08, 2024 01:54 PM Outpatient Encounter PRIMARY CARE/MEDICINE IHE Encounter [...] - MEDICINE [place] [facility] [place] [facility] Mar 15, 2024 02:00 PM [facility] Active, Pending, and Scheduled Orders This section [...] 2024 10:02 PM Consult Order COMMUNITY CARE-NEUROLOGY [facility] Feb 16, 2024 03:57 PM Consult Order PAIN CLINI C/[facility] OUTPT [facility] Social History: Smoking Status (Most current) [...] [facility] Tobacco Use History This section includes a history of the smoking, or tobacco-related health factors, that were collected on or before the date of the Encounter. The data comes from the [place] facility where the Encounter took place. Date/Time Smoking Status/Tobacco Use Comment F acility Feb 18, 2023 02:31 PM VA-TOBACCO QUIT 15 YRS OR MORE [place] [facility] [place] [facility] Dec 31, 2021 01:00 PM VA-TOBACCO FORMER USER [place] [facility] [facility] Dec 31, 2021 01:00 PM [place]-TOBACCO QUIT 15 YRS OR MORE [facility] Advance Directives: All historical and [...] Aug 07, 2021 ADVANCE DIRECTIVE MARIA ARADHA MO[facility] [place] Nov 28, 2020 ADVANCE DIRECTIVE GOLDIE DUTTA [facility] Encounter Notes: All associated encounter notes This section contains the clinical notes associated to the Encounter. Date/Time Encounter Note(s) Provider Source Feb 05, 2024 11:06 PM ADDENDUM: LOCAL TITLE: Addendum STANDARD TITLE: ADDENDUM DATE OF NOTE: FEB 05, 2024@23:06:08 ENTRY DATE: FEB 05, 2024@23:06:11 AUTHOR: Adriane OCONNELL COSIGNER: URGENCY: STATUS: COMPLETED please notify pt: Neurology declined consult and recommended evaluation by physiatry. If patient is in agreement we can place referral to physiatry at [facility]. thx per CC: Fax back from [facility] declining the referral. Dr. Alejandro Lux reviewed and states: This pt would be best served by PM&R pain clinic. /es/ LEV OCONNELL MD PHYSICIAN Signed: 02/05/2024 23:11 Receipt Acknowledged By: 02/10/2024 14:31 /es/ STEVEN DIAL RN REGISTERED NURSE ========= --- Original Document --- 01/08/24 PRIMARY CARE SECURE MESSAGING: ------Original Message -------- Sent: 01/08/2024 01:42 PM ET From: ELIZABETH SMILEY To: ANISHO_P [facility] Subject: General:Neurology Consult Request I was informed by the Team that I could use the same referral that got me to Dr. Murray in Neurological Surgery, but [facility] Neurology said I cannot. I need a new referral to see a doctor in Neurology, sent to fax #[phone]. I need this soon as I am still moving backwards with regard to my sciatica issues since September and Dr. Kasper has retired. I don't know what the issue is (medication or the fact that I was told one of the two screws from my fusion is now broken), but I need to be seen sooner rather than later. /bienvenido/ SANDRA MENESES Signed: 01/08/2024 13:54 Receipt Acknowledged By: 01/11/2024 21:29 /es/ MAXIMO HOFFMAN LPN LPN 2024 12:52 /bienvenido/ STEVEN DIAL RN REGISTERED NURSE 2024 ADDENDUM STATUS: COMPLETED New Consult placed as requested and held for PCP signature if appropriate. /bashir DIAL RN REGISTERED NURSE Signed: 2024 12:18 2024 ADDENDUM STATUS: COMPLETED Spoke with . Advised consult has been placed. /bienvenido/ STEVEN DIAL RN REGISTERED NURSE Signed: 2024 12:52 02/10/2024 ADDENDUM STATUS: COMPLETED Called without success. Left HIPAA-compliant message on voicemail not identified in outgoing message requesting call back to PACT. Return call number was provided. Message delivered via [employer] secure message. /bashir DIAL RN REGISTERED NURSE Signed: 02/10/2024 14:31 Adriane OCONNELL [place] [facility] [facility] Jan 08, 2024 01:54 PM PRIMARY CARE SECUR E MESSAGING: LOCAL TITLE: PRIMARY CARE SECURE MESSAGING STANDARD TITLE: PRIMARY CARE SECURE MESSAGING DATE OF NOTE: JAN 08, 2024@13:54 ENTRY DATE: JAN 08, 2024@13:54:46 AUTHOR: SANDRA BROOKS EXP COSIGNER: URGENCY: STATUS: COMPLETED PRIMARY CARE SECURE MESSAGING Has ADDENDA ------Original Message -------- Sent: 01/08/2024 01:42 PM ET From: ELIZABETH SMILEY To: ANISH,O_P [facility] Subject: General:Neurology Consult Request I was informed by the Team that I could use the same referral that got me to Dr. Murray in Neurological Surgery, but [facility] said I cannot. I need a new referral to see a doctor in Neurology, sent to fax #[phone]. I need this soon as I am still moving backwards with regard to my sciatica issues since September and Dr. Kasper has retired. I don't know what the issue is (medication or the fact that I was told one of the two screws from my fusion is now broken), but I need to be seen sooner rather than later. /es/ SANDRA MENESES Signed: 01/08/2024 13:54 Receipt Acknowledged By: 01/11/2024 21:29 /es/ MAXIMO HOFFMAN LPN LPN 2024 12:52 /es/ STEVEN DIAL RN REGISTERED NURSE 2024 ADDENDUM STATUS: COMPLETED New Consult placed as requested and held for PCP signature if appropriate. /bienvenido/ STEVEN DIAL RN REGISTERED NURSE Signed: 2024 12:18 2024 ADDENDUM STATUS: COMPLETED Spoke with . Advised consult has been placed. /bienvenido/ STEVEN DIAL RN REGISTERED NURSE Signed: 2024 12:52 02/05/2024 ADDENDUM STATUS: COMPLETED please notify pt: Neurology declined consult and recommended evaluation by physiatry. If patient is in agreement we can place referral to physiatry at [facility]. thx per CC: Fax back from [facility] declining the referral. Dr. Alejandro Lux reviewed and states: This pt would be best served by PM&R pain clinic. /es/ LEV OCONNELL MD PHYSICIAN Signed: 02/05/2024 23:11 Receipt Acknowledged By: 02/10/2024 14:31 /bienvenido/ STEVEN DIAL RN REGISTERED NURSE 02/10/2024 ADDENDUM STATUS: COMPLETED Called without success. Left HIPAA-compliant message on voicemail not identified in outgoing message requesting call back to PACT. Return call number was provided. Message delivered via [facility] secure message. /es/ STEVEN DIAL RN REGISTERED NURSE Signed: 02/10/2024 14:31 SANDRA BROOKS [place] [facility]
--- OUTSIDE RECORDS SUMMARY | 2024-02-17 09:36 | XMS_ITS | Encounter Summary ---
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 Organization [facility] [place] Address [address] [place] [address] Care Team Providers Care Hotel Reservation Agent Name Role Phone LEV GORDON Primary Care Provide r Unavailable Insurance Providers: [...] [facility] Jan 26, 2020 [id number] ELIZABETH SMILEY JR PATIENT AETNA PREFERRED PROVIDER ORGANIZAT ION (PPO) DWAYNE AL EMPLO [facility] Feb 25, 2016 [id number] ELIZABETH SMILEY JR PATIENT AETNA PREFERRED PROVIDER ORGANIZAT ION (PPO) DWAYNE AL EMPL [place] Feb 25, 2016 [id number] [phone] ELIZABETH SMILEY JR PATIENT AETNA PREFERRED PROVIDER ORGANIZAT ION (PPO) DWAYNE AL EMPL [place] Feb 25, 2016 [id number] ELIZABETH SMILEY PATIENT AETNA PREFERRED PROVIDER ORGANIZAT ION (PPO) DWAYNE AL MIO MIMI COO[place] Feb 24, 2016 [id number] ELIZABETH SMILEY PATIENT AETNA PHARMACY MANAGEMENT PRESCRIPT ION DWAYNE AL EMPLO MIMI Jan 26, 2020 [id number] ELIZABETH SMILEY JR PATIENT AETNA PHARMACY MANAGEMENT PRESCRIPT ION [place] Feb 25, 2016 [id number] ELIZABETH SMILEY PATIENT AETNA PHARMACY MANAGEMENT PRESCRIPT ION DWAYNE AL EMPLO MIMI Feb 25, 2016 [id number] ELIZABETH SMILEY PATIENT AETNA RX PRESCRIPT ION DWAYNE AL EMPLO MIMI Feb 25, 2016 [id number] ELIZABETH SMILEY PATIENT [facility] Feb 25, 2016 [id number] ELIZABETH SMILEY JR PATIENT CIGNA POINT OF SERVICE TYCO Mar 20, 2002 [id number] ELIZABETH SMILEY PATIENT CIGNA* POINT OF SERVICE Mar 20, 2002 [id number] ELIZABETH SMILEY PATIENT Selected Encounter This section includes the information on record at [place] for the Encounter. Date/Time Encounter Type Encounter Description Reason Pro vider Source Dec 31, 2023 02:50 PM Outpatient Encounter PRIMARY CARE/MEDICINE IHE Encounter [...] 2024 01:00 PM AMBULATORY - MEDICINE [facility] [place] [facility] Mar 15, 2024 02:00 PM AMBULATORY - MEDICINE [facility] Active, Pending, and Scheduled Orders This section includes a listing of several types of active, pending, and scheduled orders, including clinic medications orders, diagnostic test orders, procedure orders and consult orders; where the start date of the order is 45 days before the date of the Encounter or 45 days after the date of theEncounter. The data comes from all [place] treatment facilities. Test Date/Time Test Type Test Details Facility Name Jan 10, 2024 10:02 PM Consult Order [facility]-NEUROLOGY [facility] Medicaid [facility] Social History: Smoking Status (Most current) [...] 18, 2023 02:31 PM VA-TOBACCO FORMER USER [facility] Tobacco Use History This section includes a history of the smoking, or tobacco-related health factors, that were collected on or before the date of the Encounter. The data comes from the [place] facility where the Encounter took place. Date/Time Smoking Status/Tobacco Use Comment F acility Feb 18, 2023 02:31 PM [place]-TOBACCO QUIT 15 YRS OR MORE [facility] Dec 31, 2021 01:00 PM [facility] Dec 31, 2021 01:00 PM [place]-TOBACCO QUIT 15 YRS OR MORE [facility] Advance Directives: All historical and current [...] Aug 07, 2021 ADVANCE DIRECTIVE RADHA SAHA [facility] Nov 28, 2020 ADVANCE DIRECTIVE GOLDIE UDTTA [facility] Encounter Notes: All associated encounter notes This section contains the clinical notes associated to the Encounter. Date/Time Encounter Note(s) Provider Source Dec 31, 2023 02:54 PM ACCOUNTING OF DISC LOSURES NOTE: LOCAL TITLE: STATE PRESCRIPTION DRUG MONITORING PROGRAM STANDARD TITLE: ACCOUNTING OF DISCLOSURES NOTE DATE OF NOTE: DEC 31, 2023@14:54:32 ENTRY DATE: DEC 31, 2023@14:54:32 AUTHOR: ABY HOFFMAN EXP COSIGNER: LEV GORDON URGENCY: STATUS: COMPLETED This PDMP query was submitted by Aby Hoffman on behalf of Lev Gordon The clinical justification for this PDMP query is to review controlled substances prescribed outside of the [facility], and any additional information that may become available, as an important component of standard clinical care, and in accordance with [facility] policy. Patient information was shared with the PDMP [place]. The VA prescriber, for which I am a delegate, will be alerted of these PDMP findings through co-signature of this progress note. No prescription(s) for controlled substances outside the [facility] were found in the last 90 days. /bienvenido/ ABY HOFFMAN LPN LPN Signed: 12/31/2023 14:54 /bienvenido/ LEV GORDON MD PHYSICIAN Cosigned: 01/03/2024 11:30 ABY HOFFMAN Dec 31, 2023 02:53 PM PAIN MEDICATION MG T NOTE: LOCAL TITLE: OPIOID/CONTROLLED SUBSTANCE NOTE STANDARD TITLE: PAIN MEDICATION MGT NOTE DATE OF NOTE: DEC 31, 2023@14:53 ENTRY DATE: DEC 31, 2023@14:53:45 AUTHOR: ABY HOFFMAN EXP COSIGNER: URGENCY: STATUS: COMPLETED OPIOID/CONTROLLED SUBSTANCE NOTE Controlled Substance Renewal Request REQUESTED MEDICATIONS: PHARMACY PICK-UP A valid consent for Long-Term Opioid therapy for Pain is required for opioid duration of 90 days or greater. No CONSENT FOR LONG-TERM OPIOIDS FOR PAIN note found. Prescription Drug Monitoring Program (PDMP): A PDMP note is required at every new prescription for a controlled substance. PDMP HISTORY 1 YEAR Info Disclosed: Patient Demographics Purpose: Accessing Prescription Drug Monitoring Program (PDMP) databases for review of controlled substances prescribed outside of the [facility], and any additional information that may become available, as an important component of standard clinical care and in accordance with [facility] policy. 07/03/23 12:20 Winnie Gordon PDMP [employer] [place] 12/31/23 14:53 Aby Hoffman PDMP [employer] [place] Urine Drug Screen: A urine drug screen is required prior to reaching 90 days of opioid therapy and at least annually thereafter. No data available for: OPIATES SCREEN OXYCODONE SCREEN METHADONE SCREEN BENZODIAZEPINES SCREEN COCAINE SCREEN CANNABINOIDS SCREEN ALCOHOL, ETHYL URINE AMPHETAMINES SCREEN BUPRENORPHINE (URINE) Ethyl Glucuronide Screen Ethyl Sulfate Ethyl Glucuronide Conf Most Recent Naloxone Prescription Information: No prior Naloxone prescription was found. /bashir HOFFMAN LPN LPN Signed: 12/31/2023 14:53 ABY HOFFMAN Dec 31, 2023 02:50 PM MEDICATION MGT NOT E: LOCAL TITLE: OUTPATIENT MEDICATION REQUEST STANDARD TITLE: MEDICATION MGT NOTE DATE OF NOTE: DEC 31, 2023@14:50 ENTRY DATE: DEC 31, 2023@14:50:40 AUTHOR: ABY HOFFMAN EXP COSIGNER: URGENCY: STATUS: COMPLETED Medication Request Date of Request: Dec Is this a New Medication? No PLEASE RENEW FOR PICKUP 8) CLONAZEPAM 0.5MG TAB TAKE ONE TABLET BY MOUTH THREE ACTIVE TIMES A DAY /bashir HOFFMAN LPN LPN Signed: 12/31/2023 14:53 Receipt Acknowledged By: 01/03/2024 11:30 /bienvenido/ LEV GORDON MD PHYSICIAN ABY HOFFMAN
--- OUTSIDE RECORDS SUMMARY | 2024-02-17 09:36 | XMS_ITS | Encounter Summary ---
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 Address [address] [place] [address] Care Team Providers Care Cooking Show Host Name Role Phone LEV OCONNELL Primary Care [...] (PPO) FED EMPLO YE Jan 26, 2020 [id number] ELIZABETH SMILEY JR PATIENT AETNA PREFERRED PROVIDER ORGANIZAT ION (PPO) DWAYNE AL EMPL [facility] Feb 25, 2016 [id number] [phone] ELIZABETH SMILEY JR PATIENT AETNA PREFERRED PROVIDER ORGANIZAT ION (PPO) DWAYNE AL EMPL [facility] Feb 25, 2016 [id number] ELIZABETH SMILEY PATIENT AETNA PREFERRED PROVIDER ORGANIZAT ION (PPO) DWAYNE AL EMPLO MIMI Feb 25, 2016 [id number] ELIZABETH SMILEY JR PATIENT AETNA PREFERRED PROVIDER ORGANIZAT ION (PPO) DWAYNE AL MIO MIMI COO[place] Feb 24, 2016 [id number] ELIZABETH SMILEY PATIENT AETNA PHARMACY MANAGEMENT PRESCRIPT ION DWAYNE AL MIO MIMI COO[place] Jan 26, 2020 [id number] ELIZABETH SMILEY JR PATIENT AETNA PHARMACY MANAGEMENT PRESCRIPT ION [place] Feb 25, 2016 [id number] [phone] ELIZABETH SMILEY PATIENT AETNA PHARMACY MANAGEMENT PRESCRIPT ION DWAYNE AL MIO MIMI Feb 25, 2016 [id number] ELIZABETH SMIELY PATIENT AETNA RX PRESCRIPT ION DWAYNE AL MIO MIMI COO[place] Feb 25, 2016 [id number] ELIZABETH SMILEY PATIENT AETNA RX PRESCRIPT ION [facility] Feb 25, 2016 [id number] ELIZABETH SMILEY JR PATIENT CIGNA POINT OF SERVICE TYCO Mar 20, 2002 [id number] ELIZABETH SMILEY PATIENT CIGNA* POINT OF SERVICE Mar 20, 2002 [id number] ELIZABETH SMILEY PATIENT Selected Encounter This section includes the information on record at [place] for the Encounter. Date/Time Encounter Type Encounter Description Reason Provider Source Jan 13, 2024 01:36 PM FIT SPECTACLES MONOFOCAL OPTOMETRY ICD-10-CM Z46.0 Encounter for fit/adjst of spectacles and contact lenses YOHANA NGUYEN Kendall Encounter Template Text not used by [place] Assessments - Encounter Diagnoses This section includes the primary and secondary diagnoses documented for the Encounter. Date/Time Primary/Secondary Diagnosis Diagnosis Name Provider Source Jan 13, 2024 01:36 PM PRIMARY Encounter for fit/adjst of spectacles and contact lenses PATRIA BLAND [place] [facility] [facility] Plan of Treatment: Future Appointments (+ 6 months) and Future Tests (+/- 45 days) The Plan of Treatment section includes future care activities for the patient [facility] [place] [facility]. This section includes future appointments [...] of theEncounter. The data comes from all [place] treatment facilities. Test Date/Time Test Type Test Details Facility Name Jan 10, 2024 10:02 PM Consult Order COMMUNITY CARE[facility] Feb 16, 2024 03:57 PM Consult Order PAIN CLINI C/[facility] OUTPT Cons [facility] Social History: Smoking Status (Most current) [...] Facil ity Feb 18, 2023 02:31 PM [place]-TOBACCO QUIT 15 YRS OR MORE [facility] Tobacco Use History This section includes a history of the smoking, or tobacco-related health factors, that were collected on or before the date of the Encounter. The data comes from the [place] facility where the Encounter took place. Date/Time Smoking Status/Tobacco Use Comment F acility Feb 18, 2023 02:31 PM [place]-TOBACCO QUIT 15 YRS OR MORE [facility] Dec 31, 2021 01:00 PM VA-TOBACCO FORMER USER [facility] Dec 31, 2021 01:00 PM VA-TOBACCO QUIT 15 YRS OR MORE [facility] Advance Directives: All historical and current [...] Source July 02, 2022 ADVANCE [facility] Aug 07, 2021 ADVANCE DIRECTIVE RADHA SAHA [facility] Nov 28, 2020 ADVANCE DIRECTIVE GOLDIE DUTTA [facility] Encounter Notes: All associated encounter notes This section contains the clinical notes associated to the Encounter. Date/Time Encounter Note(s) Provider Source Jan 13, 2024 01:36 PM OPTOMETRY NOTE: LOCAL TITLE: OPTOMETRY NOTE STANDARD TITLE: OPTOMETRY NOTE DATE OF NOTE: JAN 13, 2024@13:36 ENTRY DATE: JAN 13, 2024@13:36:17 AUTHOR: TEJINDER PALMA COSIGNER: URGENCY: STATUS: COMPLETED OPTOMETRY NOTE Has ADDENDA The quote provided below is for informational purposes only. Please verify prior to the creation of a purchase order. ELIZABETH SMILEY 3228 RX INFORMATION OD +3.00 -0.50 X90 Add:0.00 Pzm:0.00 Dir: Prz2:0.00 Dir2: OS +3.00 -1.25 X110 Add:0.00 Pzm:0.00 Dir: Prz2:0.00 Dir2: FITTING INFORMATION FPD: NPD: [place]:R:30 L:32.5 SEG HT:R: L: Tint:YELLOW Shade:2 [place] Billable Items FRAME: JR HOFF [place] [id number] Right Lens: 1.67 SINGLE VISION 1.67 HIGH INDEX Left Lens: 1.67 SINGLE VISION 1.67 HIGH INDEX KLEAR ANTI-REFLECTIVE COATING SOLID TINT CLIN items [employer] - AR Coating 0001 - Single Vision - Glass Plastic Poly [employer] - Hi Index 1.67 --------- The quote provided below is for informational purposes only. Please verify prior to the creation of a purchase order. ELIZABETH SMILEY 3228 RX INFORMATION OD +1.25 -0.50 X90 Add:+2.75 Pzm:0.00 Dir: Prz2:0.00 Dir2: OS +1.25 -1.25 X110 Add:+2.75 Pzm:0.00 Dir: Prz2:0.00 Dir2: FITTING INFORMATION FPD: NPD: [place]:R:31.5 L:33.0 SEG HT:R:22 L:22 Tint:None Shade:None VA Billable Items FRAME: PT48 [facility] [address]140 Right Lens: 1.67 VA PROGRESSIVE 1.67 HIGH INDEX Left Lens: 1.67 VA PROGRESSIVE 1.67 HIGH INDEX KLEAR ANTI-REFLECTIVE COATING CLIN items [employer] - AR Coating 0004 - Progressive - Glass Plastic Poly [employer] - Hi Index 1.67 The quote provided below is for informational purposes only. Please verify prior to the creation of a purchase order. ELIZABETH SMILEY JR 3228 RX INFORMATION OD +1.25 -0.50 X90 Add:+2.75 Pzm:0.00 Dir: Prz2:0.00 Dir2: OS +1.25 -1.25 X110 Add:+2.75 Pzm:0.00 Dir: Prz2:0.00 Dir2: FITTING INFORMATION FPD: NPD: [place]:R:31.5 L:33.0 SEG HT:R:22 L:22 Tint:WHALEN Shade:3 VA Billable Items FRAME: PT48 [facility] [address] Right Lens: 1.67 VA PROGRESSIVE 1.67 HIGH INDEX Left Lens: 1.67 VA PROGRESSIVE 1.67 HIGH INDEX BACKSIDE AR SOLID TINT CLIN items [employer] - Backside AR Coating 0004 - Progressive - Glass Plastic Poly [employer] - Hi Index 1.67 /bienvenido/ TEJINDER PALMA SOLE STAPLER WELT Signed: 01/13/2024 13:37 Receipt Acknowledged By: 01/14/2024 10:20 /bienvenido/ 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 OPT HT entered consult(s) as requested for provider signature. /bienvenido/ PATRIA [facility] Signed: 01/14/2024 10:34 TEJINDER PALMA CNTRL [facility]
--- OUTSIDE RECORDS SUMMARY | 2024-02-17 09:37 | XMS_ITS | Encounter Summary ---
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 Organization [place] Address [address] [place] [address] Care Team Providers Care Ccnp Name Role Phone LEV OCONNELL Primary Care [...] (PPO) FED EMPLO YEES Jan 26, 2020 [id number] ELIZABETH SMILEY JR PATIENT [employer] PREFERRED PROVIDER ORGANIZAT ION (PPO) DWAYNE AL EMPL [facility] Feb 25, 2016 [id number] [phone] ELIZABETH SMILEY JR PATIENT AETNA PREFERRED PROVIDER ORGANIZAT ION (PPO) DWAYNE AL EMPL [facility] Feb 25, 2016 [id number] ELIZABETH SMILEY PATIENT AETNA PREFERRED PROVIDER ORGANIZAT ION (PPO) DWAYNE AL EMPLO [facility] Feb 25, 2016 [id number] ELIZABETH SMILEY JR PATIENT AETNA PREFERRED PROVIDER ORGANIZAT ION (PPO) DWAYNE MORALESO [facility]IM[facility] Feb 24, 2016 [id number] ELIZABETH SMILEY PATIENT [employer]ETNA PHARMACY MANAGEMENT PRESCRIPT ION DWAYNE AL MIO MIMI [facility]OO[facility] Jan 26, 2020 [id number] ELIZABETH SMILEY JR PATIENT [employer]ETNA PHARMACY MANAGEMENT PRESCRIPT ION [facility] Feb 25, 2016 [id number] ELIZABETH SMILEY PATIENT AETNA PHARMACY MANAGEMENT PRESCRIPT ION DWAYNE AL MIO MIMI Feb 25, 2016 [id number] ELIZABETH SMILEY PATIENT AETNA RX PRESCRIPT ION DWAYNE MORALESO [facility] Feb 25, 2016 [id number] ELIZABETH SMILEY PATIENT AETNA RX PRESCRIPT ION FEP Feb 25, 2016 [id number] ELIZABETH SMILEY JR PATIENT [employer] POINT OF SERVICE TYCO Mar 20, 2002 [id number] ELIZABETH SMILEY PATIENT CIGNA* POINT OF SERVICE Mar 20, 2002 [id number] ELIZABETH SMILEY PATIENT Selected Encounter This section includes the information on record at [place] for the Encounter. Date/Time Encounter Type Encounter Description Reason Pro vider Source Jan 26, 2024 08:21 AM Outpatient Encounter PRIMARY CARE/MEDICINE IHE Encounter [...] of theEncounter. The data comes from all [place] treatment facilities. Test Date/Time Test Type Test Details Facility Name Jan 10, 2024 10:02 PM Consult Order COMMUNITY CARE-NEUROLOGY [facility] Feb 16, 2024 03:57 PM Consult Order PAIN CLINI C/NHM OUTPT Cons [facility] Social History: Smoking Status (Most [...] Facil ity Feb 18, 2023 02:[address]-TOBACCO QUIT 15 YRS OR MORE [facility] Tobacco Use History This section includes a history of the smoking, or tobacco-related health factors, that were collected on or before the date of the Encounter. The data comes from the [place] facility where the Encounter took place. Date/Time Smoking Status/Tobacco Use Comment F acility Feb 18, 2023 02:[address]-TOBACCO QUIT 15 YRS OR MORE [facility] Dec 31, 2021 01:00 PM VA-TOBACCO FORMER USER [facility] Dec 31, 2021 01:[address]-TOBACCO QUIT 15 YRS OR MORE [facility] Advance Directives: All historical and current Section Date Range: From patient's date of to the date document was created. This section includes ALL of a patient's completed or amended CT Advance and Rescinded Directives. The entries below indicate that a directive exists for the patient, but an actual copy is not included with this document. The data comes from all [place] facilities. Date Advance Directives Provider Source July 02, 2022 ADVANCE DIRECTIVE SANDRA BROOKS Aug 07, 2021 ADV[address] DIRECT[address] RADHA SAHA [facility] Nov 28, 2020 ADVANCE DIRECTIVE GOLDIE DUTTA [facility] Encounter Notes: All associated encounter notes This section contains the clinical notes associated to the Encounter. Date/Time Encounter Note(s) Provider Source Jan 26, 2024 08:21 AM PRIMARY CARE SECUR E MESSAGING: [facility] TITLE: PRIMARY CARE SECURE MESSAGING STANDARD TITLE: PRIMARY CARE SECURE MESSAGING DATE OF NOTE: JAN 26, 2024@08:21 ENTRY DATE: JAN 26, 2024@08:21:18 AUTHOR: SANDRA BROOKS EXP COSIGNER: URGENCY: STATUS: COMPLETED ------Original Message -------- Sent: 01/25/2024 08:59 AM ET From: ELIZABETH SMILEY To: Annabel OCONNELL [facility] Subject: Medication:Refills needed I have no refills available for the following: Vitamin D3 1000 unit Baclofen 10mg /es/ SANDRA BROOKS AMSA Signed: 01/26/2024 08:21 Receipt Acknowledged By: 01/28/2024 08:48 /es/ MAXIMO HOFFMAN LPN LPN 01/31/2024 21:39 /es/ STEVEN DIAL RN REGISTERED NURSE SANDRA BROOKS CT [facility] [place] [facility] Jan 26, 2024 08:21 AM PRIMARY CARE SECUR E MESSAGING: LOCAL TITLE: PRIMARY CARE SECURE MESSAGING STANDARD TITLE: PRIMARY CARE SECURE MESSAGING DATE OF NOTE: JAN 26, 2024@08:21 ENTRY DATE: JAN 26, 2024@08:21:56 AUTHOR: SANDRA BROOKS EXP COSIGNER: URGENCY: STATUS: COMPLETED ------Original Message -------- Sent: 01/25/2024 09:35 AM ET From: ELIZABETH SMILEY To: Annabel OCONNELL [facility] Subject: Medication:Refills needed I need a refill for Flucticosone. /bienvenido/ SANDRA MENESES Signed: 01/26/2024 08:21 Receipt Acknowledged By: 01/28/2024 08:52 /es/ MAXIMO HOFFMAN LPN LPN 01/31/2024 21:40 /bienvenido/ STEVEN DIAL RN REGISTERED NURSE SANDRA BROOKS [facility]
--- OUTSIDE RECORDS SUMMARY | 2024-02-17 09:37 | XMS_ITS ---
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 Organization [facility] Address [address] [place] [address] Care Team Providers Care Privacy Compliance Manager Name Role Phone LEV OCONNELL Primary [...] EMPLO [facility] Jan 26, 2020 [id number] ELIZABETH SMILEY JR PATIENT AETNA PREFERRED PROVIDER ORGANIZAT ION (PPO) DWAYNE AL EMPLO [facility] Feb 25, 2016 [id number] ELIZABETH SMILEY JR PATIENT AETNA PREFERRED PROVIDER ORGANIZAT ION (PPO) DWAYNE AL EMPL [facility] Feb 25, 2016 [id number] [phone] ELIZABETH SMILEY JR PATIENT AETNA PREFERRED PROVIDER ORGANIZAT ION (PPO) DWAYNE AL EMPL [facility] Feb 25, 2016 [id number] ELIZABETH SMILEY PATIENT AETNA PREFERRED PROVIDER ORGANIZAT ION (PPO) DWAYNE AL MIO MIMI [facility]OO[facility] Feb 24, 2016 [id number] ELIZABETH SMILEY PATIENT AETNA PHARMACY MANAGEMENT PRESCRIPT ION DWAYNE AL EMPLO MIMI Jan 26, 2020 [id number] ELIZABETH SMILEY JR PATIENT AETNA PHARMACY MANAGEMENT PRESCRIPT ION [facility] Feb 25, 2016 [id number] ELIZABETH SMILEY PATIENT AETNA PHARMACY MANAGEMENT PRESCRIPT ION DWAYNE AL EMPLO MIMI Feb 25, 2016 [id number] ELIZABETH SIMLEY PATIENT AETNA RX PRESCRIPT ION DWAYNE AL EMPLO MIMI Feb 25, 2016 [id number] ELIZABETH SMILEY PATIENT AETNA RX PRESCRIPT ION [facility] Feb 25, 2016 [id number] ELIZABETH SMILEY JR PATIENT CIGNA POINT OF SERVICE TYCO Mar 20, 2002 [id number] ELIZABETH SMILEY PATIENT CIGNA* POINT OF SERVICE Mar 20, 2002 [id number] ELIZABETH SMILEY PATIENT Selected Encounter This section includes the information on record at [place] for the Encounter. Date/Time Encounter Type Encounter Description Reason Pro vider Source Jan 26, 2024 01:55 PM Outpatient Encounter TELEPHONE/MEDICINE IHE Encounter Template Text not used by [place] Plan of Treatment: Future Appointments (+ 6 months) and Future Tests (+/- 45 days) The Plan of Treatment section includes future care activities for the patient from all [place] treatmentfacilities. This section includes future appointments and future orders which are active, pending or scheduled. Future Appointments This section includes appointments that were scheduled to occur 6 months from the date of the Encounter, up to a maximum of 20 appointments. The data comes from all [place] treatment facilities. Appointment Date/Time Appointment Type Appointme nt Facility Name Mar 15, 2024 02:00 PM AMBULATORY - MEDICINE [facility] Active, Pending, and Scheduled Orders This section includes a listing of several types of active, pending, and scheduled orders, including clinic medications orders, diagnostic test orders, procedure orders and consult orders; where the start date of the order is 45 days before the date of the Encounter or 45 days after the date of theEncounter. The data comes from all [place] treatment facilities. Test Date/Time Test Type Test Details Facility Name Jan 10, 2024 10:02 PM Consult Order COMMUNITY CARE-NEUROLOGY [facility] Mechanical Maintenance Technician[facility] Feb 16, 2024 03:57 PM Consult Order PAIN CLINI C/NHM OUTPT Cons Mechanical Maintenance [facility] Social History: Smoking Status (Most current) and Tobacco Use (All prior to encounter date) This section includes the most current, and the historical, smoking and tobacco- related health factors from the [place] facility where the Encounter took place. Current Smoking Status This section includes the most current smoking, or tobacco-related health factor, from the [place] facility where the Encounter took place. Date/Time Current Smoking Status Comment Facil ity Feb 18, 2023 02:31 PM VA-TOBACCO FORMER USER [facility] Tobacco Use History This section includes a history of the smoking, or tobacco-related health factors, that were collected on or before the date of the Encounter. The data comes from the [place] facility where the Encounter took place. Date/Time Smoking Status/Tobacco Use Comment F acility Feb 18, 2023 02:31 PM VA-TOBACCO QUIT 15 YRS OR MORE [facility] Dec 31, 2021 01:00 PM VA-TOBACCO FORMER USER [facility] Dec 31, 2021 01:00 PM [place]-TOBACCO QUIT 15 YRS OR MORE [facility] Advance Directives: All historical and current Section Date Range: From patient's date of to the date document was created. This section includes ALL of a patient's completed or amended [place] Advance and Rescinded Directives. The entries below indicate that a directive exists for the patient, but an actual copy is not included with this document. The data comes from all [place] facilities. Date Advance Directives Provider Source July 02, 2022 ADVANCE DIRECTIVE SANDRA BROOKS Aug 07, 2021 ADVANCE DIRECTIVE RADHA SAHA [place] Nov 28, 2020 ADVANCE DIRECTIVE GOLDIE DUTTA [facility] [place] Encounter Notes: All associated encounter notes This section contains the clinical notes associated to the Encounter. Date/Time Encounter Note(s) Provider Source Jan 26, 2024 01:55 PM SLEEP MEDICINE NOT E: LOCAL TITLE: CPAP CLINIC NOTE STANDARD TITLE: SLEEP MEDICINE NOTE DATE OF NOTE: JAN 26, 2024@13:55 ENTRY DATE: JAN 26, 2024@13:55:12 AUTHOR: FRANSICO MCNALLY EXP COSIGNER: URGENCY: STATUS: COMPLETED [place], dx sleep apnea, received the new masks ordered after he lost a lot of weight and says the small F30i with small cushion fits well. He was ordered two more. /es/ FRANSICO MCNALLY, ARTERIAL EMBALMER RESPIRATORY THERAPIST Signed: 01/26/2024 13:56 FRANSICO MCNALLY
--- OUTSIDE RECORDS SUMMARY | 2024-02-17 09:37 | XMS_ITS | Encounter Summary ---
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) Organization [facility] Address [address] [place] [address] Care Team Providers Care Investigation Manager Name Role Phone LEV OCONNELL Primary [...] (PPO) FED EMPLO YE Jan 26, 2020 [id number] [phone] ELIZABETH SMILEY JR PATIENT [employer] PREFERRED PROVIDER ORGANIZAT ION (PPO) DWAYNE AL EMPLO [facility] Feb 25, 2016 [id number] ELIZABETH SMILEY JR PATIENT AETNA PREFERRED PROVIDER ORGANIZAT ION (PPO) DWAYNE AL EMPL [facility] Feb 25, 2016 [id number] ELIZABETH SMILEY JR PATIENT AETNA PREFERRED PROVIDER ORGANIZAT ION (PPO) DWAYNE AL EMPL [facility] Feb 25, 2016 [id number] ELIZABETH SMILEY PATIENT AETNA PREFERRED PROVIDER ORGANIZAT ION (PPO) DWAYNE MORALESO MIMI COOLEY Feb 24, 2016 [id number] ELIZABETH MSILEY PATIENT AETNA PHARMACY MANAGEMENT PRESCRIPT ION DWAYNE AL EMPLO MIMI Jan 26, 2020 [id number] ELIZABETH SMILEY JR PATIENT AETNA PHARMACY MANAGEMENT PRESCRIPT ION [facility] Feb 25, 2016 [id number] ELIZABETH SMILEY PATIENT AETNA PHARMACY MANAGEMENT PRESCRIPT ION DWAYNE AL EMPLO MIMI Feb 25, 2016 [id number] ELIZABETH SMILEY PATIENT AETNA RX PRESCRIPT ION DWAYNE AL EMPLO MIMI Feb 25, 2016 [id number] ELIZABETH SMILEY PATIENT AETNA RX [facility]CRIPT [facility] Feb 25, 2016 [id number] ELIZABETH BELCHER PATIENT CIGNA POINT OF SERVICE TYCO Mar 20, 2002 [id number] ELIZABETH SMILEY PATIENT CIGNA* POINT OF SERVICE Mar 20, 2002 [id number] ELIZABETH SMILEY PATIENT Selected Encounter This section includes the information on record at [place] for the Encounter. Date/Time Encounter Type Encounter Description Reason Pro vider Source Jan 13, 2024 02:04 PM Outpatient Encounter OPTOMETRY IHE Encounter Template Text not used by [place] Plan of Treatment: Future Appointments (+ 6 months) and Future Tests (+/- 45 days) The Plan of Treatment section includes future care activities for the patient from all [place] treatmentfacilities. This section includes future appointments and future orders which are active, pending or scheduled. Future Appointments This section includes appointments that were scheduled to occur 6 months from the date of the Encounter, up to a maximum of 20 appointments. The data comes from all [place] treatment facilities. Appointment Date/Time Appointment Type Appointme [...] of theEncounter. The data comes from all [place] treatment facilities. Test Date/Time Test Type Test Details Facility Name Jan 10, 2024 10:02 PM Consult Order COMMUNITY CARE-NEUROLOGY [facility] Manager's [facility] Feb 16, 2024 03:57 PM Consult Order PAIN CLINI C/NHM OUTPT Cons [place] [facility] Social History: Smoking Status (Most current) and Tobacco Use (All prior to encounter date) This section includes the most current, and the historical, smoking and tobacco- related health factors from the [place] facility where the Encounter took place. Current Smoking Status This section includes the most current smoking, or tobacco-related health factor, from the [place] facility where the Encounter took place. Date/Time Current Smoking Status Comment Facil ity Feb 18, 2023 02:31 PM VA-TOBACCO FORMER USER [facility] Tobacco Use History This section includes a history of the smoking, or tobacco-related health factors, that were collected on or before the date of the Encounter. The data comes from the [place] facility where the Encounter took place. Date/Time Smoking Status/Tobacco Use Comment F acility Feb 18, 2023 02:31 PM VA-TOBACCO QUIT 15 YRS OR MORE [facility] Dec 31, 2021 01:00 PM VA-TOBACCO FORMER USER [facility] Dec 31, 2021 01:00 PM [place]-TOBACCO QUIT 15 YRS OR MORE [facility] Advance Directives: All historical and current Section Date Range: From patient's date of to the date document was created. This section includes ALL of a patient's completed or amended [place] Advance and Rescinded Directives. The entries below indicate that a directive exists for the patient, but an actual copy is not included with this document. The data comes from all [place] facilities. Date Advance Directives Provider Source July 02, 2022 ADVANCE DIRECTIVE SANDRA BROOKS Aug 07, 2021 ADVANCE DIRECTIVE RADHA SAHA [facility] Nov 28, 2020 ADVANCE DIRECTIVE GOLDIE DUTTA [facility] [place] Encounter Notes: All associated encounter notes This section contains the clinical notes associated to the Encounter. Date/Time Encounter Note(s) Provider Source Jan 13, 2024 02:04 PM TELEPHONE ENCOUNTE R NOTE: LOCAL TITLE: TELEPHONE NOTE/SPECIALTY CLINIC STANDARD TITLE: TELEPHONE ENCOUNTER NOTE DATE OF NOTE: JAN 13, 2024@14:04 ENTRY DATE: JAN 13, 2024@14:04:18 AUTHOR: BARBARA SUERO SA COSIGNER: URGENCY: STATUS: COMPLETED TELEPHONE NOTE/SPECIALTY CLINIC Has ADDENDA called stating that he had an optometry appt today on 01/13/2024 and he ordered glasses. However, states he was ordering gold frames but would like to change them to the gun medal colored frames, the same color he had ordered for the progressive glasses. /bashir SUERO Signed: 01/13/2024 14:07 Receipt Acknowledged By: 01/13/2024 14:25 /bashir [employer] INF[employer]ION SPECIALIST 01/13/2024 ADDENDUM STATUS: COMPLETED Eyeglass order had previously been placed in [facility]. /bashir REYES Signed: 01/13/2024 14:26 01/13/2024 ADDENDUM STATUS: COMPLETED Called the back to inform him of the frames color and that the glasses were already ordered and the stated that he was fine with the [facility] colored frames. /bashir SUERO Signed: 01/13/2024 14:57 BARBARA SUERO [facility]
--- OUTSIDE RECORDS SUMMARY | 2024-02-17 09:37 | XMS_ITS | Encounter Summary ---
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 Organization [facility] Address [address] [place] [address] Care Team Providers Care Admission Liaison Name Role Phone LEV OCONNELL Primary Care [...] PREFERRED PROVIDER ORGANIZAT ION (PPO) FED EMPLO [facility] Jan 26, 2020 [id number] [phone] ELIZABETH SMILEY JR PATIENT [employer]ETNA PREFERRED PROVIDER ORGANIZAT ION (PPO) DWAYNE AL EMPLO [facility] Feb 25, 2016 [id number] [phone] ELIZABETH SMILEY JR PATIENT AETNA PREFERRED PROVIDER ORGANIZAT ION (PPO) DWAYNE AL EMPL [facility] Feb 25, 2016 [id number] ELIZABETH SMILEY JR PATIENT AETNA PREFERRED PROVIDER ORGANIZAT ION (PPO) DWAYNE AL EMPL [facility] Feb 25, 2016 [id number] ELIZABETH SMILEY PATIENT AETNA PREFERRED PROVIDER ORGANIZAT ION (PPO) DWAYNE AL MIO MIMI COOLEY Feb 24, 2016 [id number] ELIZABETH SMILEY PATIENT AETNA PHARMACY MANAGEMENT PRESCRIPT ION DWAYNE AL EMPLO MIMI Jan 26, 2020 [id number] ELIZABETH SMILEY JR PATIENT AETNA PHARMACY MANAGEMENT PRESCRIPT ION [facility] Feb 25, 2016 [id number] ELIZABETH SMILEY PATIENT AETNA PHARMACY MANAGEMENT PRESCRIPT ION DWAYNE AL EMPLO MIMI Feb 25, 2016 [id number] ELIZABETH SMILEY PATIENT AETNA RX PRESCRIPT ION DW[place] AL EMPLO MIMI Feb 25, 2016 [id number] ELIZABETH SMILEY PATIENT AETNA RX PRESCRIPT ION [facility] Feb 25, 2016 [id number] ELIZABETH SMILEY JR PATIENT [employer]IGNA POINT OF SERVICE TYCO Mar 20, 2002 [id number] ELIZABETH SMILEY PATIENT CIGNA* POINT OF SERVICE Mar 20, 2002 [id number] ELIZABETH SMILEY PATIENT Selected Encounter This section includes the information on record at [place] for the Encounter. Date/Time Encounter Type Encounter Description Reason Pro vider Source Jan 28, 2024 08:43 AM Outpatient Encounter PRIMARY CARE/MEDICINE IHE Encounter [...] 10:02 PM Consult Order COMMUNITY CARE-NEUROLOGY Cons [facility] Feb 16, 2024 03:57 PM Consult Order PAIN CLINI C/NHM OUTPT Cons [facility] Social History: Smoking Status (Most current) [...] 18, 2023 02:31 PM VA-TOBACCO FORMER USER [facility] Tobacco Use History This section includes a history of the smoking, or tobacco-related health factors, that were collected on or before the date of the Encounter. The data comes from the [place] facility where the Encounter took place. Date/Time Smoking Status/Tobacco Use Comment F acility Feb 18, 2023 02:31 PM VA-TOBACCO QUIT 15 YRS OR MORE [facility] Dec 31, 2021 01:00 PM VA-TOBACCO FORMER USER [facility] Dec 31, 2021 01:00 PM [place]-TOBACCO QUIT 15 YRS OR MORE [facility] Advance Directives: All historical and current [...] DIRECTIVE RADHA SAHA [facility] [place] Nov 28, 2020 ADVANCE DIRECTIVE GOLDIE DUTTA [facility] [place] Encounter Notes: All associated encounter notes This section contains the clinical notes associated to the Encounter. Date/Time Encounter Note(s) Provider Source Jan 28, 2024 08:48 AM MEDICATION MGT NOT E: LOCAL TITLE: OUTPATIENT MEDICATION REQUEST STANDARD TITLE: MEDICATION MGT NOTE DATE OF NOTE: JAN 28, 2024@08:48 ENTRY DATE: JAN 28, 2024@08:48:37 AUTHOR: MAXIMO HOFFMAN EXP COSIGNER: URGENCY: STATUS: COMPLETED Medication Request Date of Request: Jan Is this a New Medication? No PLEASE RENEW AND MAIL FLUTICASONE NASAL SOLN,NASAL 50MCG/SPRAY INSTILL 2 SPRAYS INTO EACH NOSTRIL ONCE DAILY NEEDED for nasal irritation/inflammation Quantity: 1 Refills: 5 /bienvenido/ MAXIMO HOFFMAN LPN LPN Signed: 01/28/2024 08:52 Receipt Acknowledged By: 01/30/2024 07:34 /bashir OCONNELL MD PHYSICIAN MAXIMO HOFFMAN Jan 28, 2024 08:43 AM MEDICATION MGT NOT E: LOCAL TITLE: OUTPATIENT MEDICATION REQUEST STANDARD TITLE: MEDICATION MGT NOTE DATE OF NOTE: JAN 28, 2024@08:43 ENTRY DATE: JAN 28, 2024@08:43:53 AUTHOR: MAXIMO HOFFMANIGNER: URGENCY: STATUS: COMPLETED Medication Request Date of Request: Jan Is this a New Medication? No PLEASE RENEW AND MAIL 5) BACLOFEN 10MG TAB TAKE ONE TABLET BY MOUTH THREE TIMES A DAY ACTIVE FOR MUSCLE RIGIDITY (REPLACES CYCLOBENZAPRINE) Indication: FOR MUSCLE SPASMS 7) CHOLECALCIF 25MCG (D3-1,000UNIT) TAB TAKE ONE TABLET BY ACTIVE MOUTH ONCE DAILY FOR VITAMIN SUPPLEMENTATION /bienvenido/ MAXIMO HOFFMAN LPN LPN Signed: 01/28/2024 08:44 Receipt Acknowledged By: 01/30/2024 07:34 /bashir OCONNELL MD PHYSICIAN MAXIMO HOFFMAN
--- OUTSIDE RECORDS SUMMARY | 2024-02-17 09:38 | XMS_ITS | Encounter Summary ---
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 Name Role Phone LEV OCONNELL Primary [...] [facility] Jan 26, 2020 [id number] [phone] ELIZABETH SMILEY JR PATIENT [employer] PREFERRED PROVIDER ORGANIZAT ION (PPO) DWAYNE AL EMPLO [facility] Feb 25, 2016 [id number] ELIZABETH SMILEY JR PATIENT [employer] PREFERRED PROVIDER ORGANIZAT ION (PPO) DWAYNE AL EMPL [facility] Feb 25, 2016 [id number] ELIZABETH SMILEY JR PATIENT [employer] PREFERRED PROVIDER ORGANIZAT ION (PPO) DW[place]NE [place] EMPL [facility] Feb 25, 2016 [id number] [phone] ELIZABETH SMILEY PATIENT [employer] PREFERRED PROVIDER ORGANIZAT ION (PPO) DWAYNE AL MIO [facility] Feb 24, 2016 [id number] ELIZABETH SMILEY PATIENT [employer] PHARMACY MANAGEMENT PRESCRIPT ION DWAYNE AL EMPLO MIMI [facility] Jan 26, 2020 [id number] ELIZABETH SMILEY JR PATIENT [employer] PHARMACY MANAGEMENT PRESCRIPT ION DWAYNE AL EMPLO MIMI Feb 25, 2016 [id number] ELIZABETH SMILEY PATIENT [employer] PHARMACY MANAGEMENT PRESCRIPT ION [facility] Feb 25, 2016 [id number] ELIZABETH SMILEY PATIENT [employer] RX PRESCRIPT ION [facility] Feb 25, 2016 [id number] [phone] ELIZABETH SMILEY JR PATIENT [employer] RX PRESCRIPT ION DW[place]NE [place] EMPLO MIMI [facility] Feb 25, 2016 [id number] ELIZABETH SMILEY PATIENT [employer] POINT OF SERVICE [employer] Mar 20, 2002 [id number] ELIZABETH SMILEY PATIENT [employer]* POINT OF SERVICE Mar 20, 2002 [id number] ELIZABETH SMILEY PATIENT Selected Encounter This section includes the information on record at [place] for the Encounter. Date/Time Encounter Type Encounter Description Reason Pro vider Source Jan 08, 2024 12:00 AM Outpatient Encounter EVENT (HISTORICAL) IHE Encounter Template Text not used by [place] Plan of Treatment: Future Appointments (+ 6 months) and Future Tests (+/- 45 days) The Plan of Treatment section includes future care activities for the patient from all [place] treatmentfacilities. This section includes future appointments and future orders which are active, pending or scheduled. Future Appointments This section includes appointments that were scheduled to occur 6 months from the date of the Encounter, up to a maximum of 20 appointments. The data comes from all [place] treatment facilities. Appointment Date/Time Appointment Type Appointme nt Facility Name Jan 13, 2024 01:00 PM [facility]BULATORY - MEDICINE [facility] [place] [facility] Mar 15, 2024 02:00 [facility] Active, Pending, and Scheduled Orders This section includes a listing of several types of active, pending, and scheduled orders, including clinic medications orders, diagnostic test orders, procedure orders and consult orders; where the start date of the order is 45 days before the date of the Encounter or 45 days after the date of theEncounter. The data comes from all [place] treatment facilities. Test Date/Time Test Type Test Details Facility Name Jan 10, 2024 10:02 PM Consult Order COMMUNITY CARE-NEUROLOGY [facility] [employer] [facility] Feb 16, 2024 03:57 PM Consult Order PAIN CLINI [facility] OUTPT [facility] Social History: Smoking Status (Most current) and Tobacco Use (All prior to encounter date) This section includes the most current, and the historical, smoking and tobacco- related health factors from the [place] facility where the Encounter took place. Current Smoking Status This section includes the most current smoking, or tobacco-related health factor, from the [place] facility where the Encounter took place. Date/Time Current Smoking Status Comment Facil ity Feb 18, 2023 02:31 PM [facility]CO [facility] Tobacco Use History This section includes a history of the smoking, or tobacco-related health factors, that were collected on or before the date of the Encounter. The data comes from the [place] facility where the Encounter took place. Date/Time Smoking Status/Tobacco Use Comment F acility Feb 18, 2023 02:31 PM VA-TOBACCO QUIT 15 YRS OR MORE [facility] [place] [facility] Dec 31, 2021 01:00 PM VA-TOBACCO FORMER USER [facility] [facility] Dec 31, 2021 01:00 PM [facility]-[facility] 15 YRS [facility] Advance Directives: All historical and current Section Date Range: From patient's date of to the date document was created. This section includes ALL of a patient's completed or amended [place] Advance and Rescinded Directives. The entries below indicate that a directive exists for the patient, but an actual copy is not included with this document. The data comes from all [place] facilities. Date Advance Directives Provider Source July 02, 2022 ADVANCE DIRECTIVE SANDRA BROOKS [facility] Aug 07, 2021 ADVANCE DIRECTIVE RADHA SAHA [facility] Nov 28, 2020 ADVANCE DIRECTIVE GOLDIE DUTTA [facility] Encounter Notes: All associated encounter notes This section contains the clinical notes associated to the Encounter. Date/Time Encounter Note(s) Provider Source Jan 08, 2024 12:00 AM NONVA NOTE: LOCAL TITLE: NON-VA OUTPATIENT NOTES STANDARD TITLE: NONVA NOTE DATE OF NOTE: JAN 08, 2024 ENTRY DATE: FEB 05, 2024@10:45:17 AUTHOR: ALFONSO EID EXP COSIGNER: URGENCY: STATUS: COMPLETED VistA Imaging - Scanned Document SCANNED DOCUMENT SIGNATURE NOT REQUIRED Electronically Filed: 02/05/2024 by: ALFONSO CUEVA [facility]
--- OUTSIDE RECORDS SUMMARY | 2024-02-17 09:38 | XMS_ITS ---
Author Organization [facility] Address [address] [place] [address] Care Team Providers Care Anglesmith Helper Name Role Phone Dylan Cat Primary Care Provider Unavailable Black, Cass Unavailable [phone] Allergies Allergen (clinical drug ingredient) Drug/Non Drug Allergy documented on EMR Reaction Allergy Type Onset Date Status Hazelnut (uncoded) migraines Allergy A ctive ibuprofen Advil renal shutdown Drug Allergy Ac tive Aleve renal shutdown Drug Allergy Ac tive Motrin renal shutdown Drug Allergy Ac tive aspirin Aspirin renal shutdown Drug Allergy Ac tive Non-steroidal anti-inflammatory agent (FN) NSAIDs renal shutdown Drug Allergy Active REASON FOR VISIT At Risk Footcare, skin problem Medications Medication SIG (Take, Route, Frequency, Duration) Notes Start Date End Date Status Vitamin B12 Active traMADol HCl 50 MG 1 tablet as needed Orally every 6 hrs Not-Taking Diabetic Insoles Not -Taking metFORMIN HCl 500 MG 1 tablet with a meal Orally Twice a day Not-Taking Ciclopirox Olamine 0.77 % 1 application to affected area Externally to feet Twice a day for 30 days Active Levothyroxine Sodium 0.2 mg Mon-SAT , 0.1mg Sun Active metFORMIN HCl 500 MG 1 tablet with a meal Orally Once a day for 30 day(s) Not-Taking Atorvastatin Calcium 40 MG 1 tablet Orally Once a day for 30 day(s) Active Vitamin D 2000 UNIT as directed Orally Once a day Not-Taking Aspirin 81 mg qd Active amLODIPine Besylate 5 MG 1 tablet Orally Once a day for 30 day(s) Active Fish Oil 1000 MG 1 capsule Orally Once a day for 30 day(s) Active Magnesium Gluconate 500 MG 1 tablet Orally Once a day for 30 day(s) Active Baclofen 10 MG 1 tablet as needed Orally Twice a day Active Empagliflozin 10 MG 1 tablet Orally Once a day for 30 day(s) Active Vitamin D3 Active Ozempic Active Sparsentan Not-Takin g clonazePAM 0.5 MG as directed Orally Active amLODIPine Besylate 5 MG 1 tablet Orally Once a day for 30 day(s) Active Irbesartan 300 MG 1 tablet Orally Once a day for 30 day(s) Active Loratadine 10 MG 1 tablet Orally Once a day for 30 day(s) Active betadine Active Cozaar Not-Taking Ciclopirox Olamine 0.77 % 1 application to affected area Externally Twice a day for 30 days 01/13/2012 Not-Taking glyBURIDE Not-Taking Zestril Not-Taking Synthroid Not-Taking Levitra Not-Taking Inspra Not-Taking Social History Tobacco Use: Social History Observation Description Date Details (start date - stop date) Former Smoker NA - NA Tobacco Use/Smoking Question Answer Notes Are you a: former smoker Additional Findings: Tobacco Non-User Ex-cigaret te smoker Alcohol Screen Question Answer Notes Did you have a drink containing alcohol in the p ast year? No Points 0 Interpretation Negative Tobacco use other than smoking: Question Answer Notes Are you an other tobacco user? No Vital Signs Height 5ft 7in in 06/26/2023 Weight 224 lbs 06/26/2023 BMI 35.08 kg/m2 06/26/2023 Blood pressure systolic 116 mm Hg 06/26/19 24 Blood pressure diastolic 74 mm Hg 024 Procedures Procedure Date Ordered Date Performed Result Body Sit e 16701-RPRWHBF NAIL, 1-5 06/26/2023 N/A G2406-CIHJCQOW DYSTROPHIC NAILS ANY # 06/26/2023 N/A Encounters Encounter Location Date Provider Diagnosis [facility] [address] [place] [address] 06/26/2023 Cass Black Type 2 diabetes mellitus with diabetic polyneuropathy E11.42 ; Tinea unguium B35.1 ; Skin maceration L98.8 and Tinea pedis B35.3 Assessments Encounter Date Diagnosis (ICD Code) Assessment Notes Treatment Notes Treatment Clinical Notes Section Notes 06/26/2023 Type 2 diabetes mellitus with diabetic polyneuropathy (ICD-10 - E11.42) 06/26/2023 Tinea unguium (ICD-10 - B35.1) 06/26/2023 Skin maceration (ICD-10 - L98.8) 06/26/2023 Tinea pedis (ICD-10 - B35.3) Plan Of Treatment Medication Medication Name Sig Start Date Stop Date Notes betadine Pending Test Test Name Order Date 47295-LSPAEUD NAIL, 1-5 06/26/2023 [id number] DYSTROPHIC NAILS ANY # Next Appt Details Follow Up: prn, Reason: Provider Name:Cass Lugo , 06/24/2024 02:00:00 PM, [address] [place] [address], [phone], Procedure Notes * Category Sub-Category Detail Notes Debride Nails 1-5 Procedure: Nail debrideme nt performed extensively to reduce/remove overall nail length and girth, subungual debris, and necrotic tissue, by manual and electrical means by use of a nail nipper and/or dremel, to more viable healthy nail plate or bed tissue 1-5. Silver nitrate used for any petechial bleeding as necessary. Patient chooses, no pharmaceutical tx (15894) Nail Reduction Nail Reduction Trimming of dyst rophic nails performed to reduce/remove overall nail length and girth, by manual and electrical means with use of a nail nipper and/or dremel, to more viable healthy nail plate or bed tissue 6-10 (G0127) Progress Notes * Major SMILEY JrDOB: (63 yo M)Acc No.[id number]:06/26/2023 Progress Note Patient:?Major Smiley Provider:?Cass Lugo DPM :1960???Age:63 Y???Sex:Male Moisés e:06/26/2023 Address:[address] [place] [address] [facility]igno [facility]AT[id number] Pcp:Dylan villalobos Subjective: * Chief Complaints: * ???At Risk FootcareSkin prob jeramie * HPI: ???At Risk footcare:?Pt States Last PCP Visit:?Date?02/28/2023 ???Skin problems:?Location:?Interspace(s)/Between toe(s).?Course:?improved , at _60 %.? * ROS:?General/Constitutional:?Nausea?denies.?Vomiting?denies.?Hunger Thirst?denies.?Loss appetite?denies.?Chills?denies.?Fatigue?denies.?Fever?denies.?Night Sweats?denies.?Unexplained weight loss?denies.?Unexplained weight gain?denies.?HEENTM:?Dentures?denies.?Dizziness?denies.?Glasses/contacts?admits.?Retinopathy?de nies.?Blurred/double vision?denies.?TMJ?denies.?Discharge/drainage?denies.?Implants?denies.?Sore throat?denies.?Dental implants?denies.?Hard of hearing ?admits.?Difficulty chewing/swallowing/speaking?denies.?Nose bleeds?denies.?Sore mouth?denies.?Respiratory:?On Oxygen?denies.?Pneumonia/pleurisy?denies.?Bronchitis?denies.?Emphysema?denies.?C oughing?denies.?Cough blood?denies.?Shortness of breath?denies.?Wheezing?denies.?Cardiovascular:?Pacemaker?denies.?MVP?denies.?WPW?denies.?CHF?denies.?Heart attack?denies.?Septal defect?denies.?Rapid beat?denies.?Chest pain ?denies.?Atrial Fib.?denies.?Murmur/Palpitations?denies.?Gastrointestinal:?Hemorrhoids?denies.?Stomach/Abdominal pain?denies.?Dark blood stool?denies.?Irritable bowel ?denies.?Constipation?denies.?Diarrhea?denies.?Hematology:?Swelling?denies.?Clots?denies.?Varicose Veins?denies.?Bruising?denies.?Bleeding problem?denies.?Genitourinary:?Blood urine?denies.?Frequent/Painfu/urination/bladder control?denies.?Kidney stones?denies.?Infection (UTI)?denies.?Nephropathy?admits.?sex trans dis (STD)?denies.?Prostate?denies.?Musculoskeletal:?Hammertoes?denies.?Bunions?denies.?Back Pain?admits.?Muscle Cramps/ Resting?admits.?Muscle cramps / walking?admits.?Generalized aches and pains?admits.?Weakness?denies.?Integ.:?Steinberg?denies.?Scars?denies.?Corns/calluses?denies.?Ingrown nails?denies.?Painful nails?admits.?Open Sores?denies.?Rashes?denies.?Neurologic:?Difficulty sleeping?admits.?Brain disorder?denies.?Numbness?admits.?Balance trouble?admits.?Confusion?denies.?Fainting/blackouts?denies.?Tingling?admits.?Tr emors?denies.? * Medical History:? * Surgical History:?laparotomy 2003colonoscopy 2012tonsillectomy and adenoidectomy Late 1959'sdeviated septum repair 1998prostatectomy 2003discectomy LS/S1 09/2016fusion LS/S1 04/2017 * Hospitalization/Major Diagno stic Procedure:?Denies Past Hospitalization * Family History:?Mother: dece ased, diagnosed with Other specified conditions influencing health status.?Father: , diagnosed with Unspecified heart disease, Other specified conditions influencing health status.?Paternal aunt: diagnosed with Unspecified heart disease.?Paternal uncle: diagnosed with Unspecified heart disease.? * Social History:?Tobacco Use:?Tobacco Use/Smoking?Are you a:?former smoker ?Additional Findings: Tobacco Non-User?Ex-cigarette smoker ?Tobacco use other than smoking?Are you an other tobacco user??No ???Drugs/Alcohol:?Drugs?Have you used drugs other than those for medical reasons in the past 12 months??No ?Alcohol Screen?Did you have a drink containing alcohol in the past year??No ?Points?0 ?Interpretation?Negative ???Miscellaneous:?no Caffeine. ?Children: yes, 1 biological 3 step-children. ?Exercise: yes, minamaly. ?Marital status: . ?Occupation: [employer] * Medications:?TakingIrbesarta n 300 MG Tablet 1 tablet Orally Once a dayLoratadine 10 MG Tablet 1 tablet Orally Once a dayVitamin D3 Ozempic clonazePAM 0.5 MG Tablet as directed Orally amLODIPine Besylate 5 MG Tablet 1 tablet Orally Once a dayEmpagliflozin 10 MG Tablet 1 tablet Orally Once a dayamLODIPine Besylate 5 MG Tablet 1 tablet Orally Once a dayFish Oil 1000 MG Capsule 1 capsule Orally Once a dayMagnesium Gluconate 500 MG Tablet 1 tablet Orally Once a dayBaclofen 10 MG Tablet 1 tablet as needed Orally Twice a dayLevothyroxine Sodium , Notes: 0.2 mg Mon- SAT , 0.1mg SunAtorvastatin Calcium 40 MG Tablet 1 tablet Orally Once a dayAspirin 81 mg qdCiclopirox Olamine 0.77 % Cream 1 application to affected area Externally to feet Twice a daybetadine Vitamin B12 Taking Irbesartan 300 MG Tablet 1 tablet Orally Once a dayTaking Loratadine 10 MG Tablet 1 tablet Orally Once a dayTaking Vitamin D3 Taking Ozempic Taking clonazePAM 0.5 MG Tablet as directed Orally Taking amLODIPine Besylate 5 MG Tablet 1 tablet Orally Once a dayTaking Empagliflozin 10 MG Tablet 1 tablet Orally Once a dayTaking amLODIPine Besylate 5 MG Tablet 1 tablet Orally Once a dayTaking Fish Oil 1000 MG Capsule 1 capsule Orally Once a dayTaking Magnesium Gluconate 500 MG Tablet 1 tablet Orally Once a dayTaking Baclofen 10 MG Tablet 1 tablet as needed Orally Twice a dayTaking Levothyroxine Sodium , Notes: 0.2 mg Mon-FRI , 0.1mg SunTaking Atorvastatin Calcium 40 MG Tablet 1 tablet Orally Once a dayTaking Aspirin 81 mg qdTaking Ciclopirox Olamine 0.77 % Cream 1 application to affected area Externally to feet Twice a dayTaking betadine Taking Vitamin B12 Not-Taking/PRNSparsentan metFORMIN HCl 500 MG Tablet 1 tablet with a meal Orally Once a dayVitamin D 2000 UNIT Tablet as directed Orally Once a daymetFORMIN HCl 500 MG Tablet 1 tablet with a meal Orally Twice a daytraMADol HCl 50 MG Tablet 1 tablet as needed Orally every 6 hrsDiabetic Insoles glyBURIDE Zestril Synthroid Levitra Inspra Cozaar Ciclopirox Olamine 0.77 % Cream 1 application to affected area Externally Twice a dayMedication List reviewed and reconciled with the patientNot- Taking/PRN Sparsentan Not-Taking/PRN metFORMIN HCl 500 MG Tablet 1 tablet with a meal Orally Once a dayNot-Taking/PRN Vitamin D 2000 UNIT Tablet as directed Orally Once a dayNot-Taking/PRN metFORMIN HCl 500 MG Tablet 1 tablet with a meal Orally Twice a dayNot-Taking/PRN traMADol HCl 50 MG Tablet 1 tablet as needed Orally every 6 hrsNot-Taking/PRN Diabetic Insoles Not-Taking/PRN glyBURIDE Not-Taking/PRN Zestril Not-Taking/PRN Synthroid Not-Taking/PRN Levitra Not-Taking/PRN Inspra Not- Taking/PRN Cozaar Not-Taking/PRN Ciclopirox Olamine 0.77 % Cream 1 application to affected area Externally Twice a dayMedication List reviewed and reconciled with the patient * Allergies:?Aspirin: renal sh utdownAdvil: renal shutdownAleve: renal shutdownMotrin: renal shutdownNSAIDs: renal shutdownHazelnut: migrainesyes[Allergies Verified] Objective: * Vitals:?Ht: 5ft 7in, Wt:224, BMI:35.08, Shoe size:9.5 extra wide, BP:116/74 mm Hg, BS:not taken. * ???Past Orders: ???Lab:HEMOGLOBIN A1C (GLYCO HEMOGLOBIN) (Order Date - 06/18/2023) (Collection Date - 06/18/2023) ? Value Reference Range ?HEMOGLOBIN A1C (HH) 7.4 * Examination: ???Ophthalmology Referral: ?DIABETES EYE EXAM?General Examination: ?GENERAL APPEARANCE:?Reveals a pleasant, alert, well nourished, well developed, well hydrated individual, who demonstrates proper attention to hygene/body habitus, and is in no acute distress.?ORIENTED:?person, place, and time.?Neurological: ?SENSORY:?Neurological exam demonstrates reduced light touch sensation reduced sharp/dull pin prick discrimination reduced vibration sensation 5.07 monofilament test performed at plantar aspects of 5 varied sites per foot shows sensation reduced at Forefoot B/L Pt relates increased burning pins and needles sensation L>R.?Dermatologic: ?SKIN FINDINGS:??Skin shows sign(s) of, inflammation, interdigital maceration, vesicles, pruritus, B/L.?Nails: ?NAILS are:?Elongated, overgrown, dystrophic, lytic, greater than 3mm thick, discolored and friable with crumbly malodorous subungual debris, with pain on palpation T5 , , remaining nails are elongated, overgrown, dystrophic.? Assessment: * Assessment: 1.?Tinea unguium - B35.1?2.? Type 2 diabetes mellitus with diabetic polyneuropathy - E11.42 (Primary)?3.?Skin maceration - L98.8, Acute problem, Uncomplicated (3)?4.?Tinea pedis - B35.3? Plan: * Treatment: 2.?Tinea unguium?Procedure: 94189-IZCDGED NAIL, 1-5 3.?Skin maceration? Start betadine.?? * Procedures:?Debride Nails 1-5:?Procedure:?Nail debridement performed extensively to reduce/remove overall nail length and girth, subungual debris, and necrotic tissue, by manual and electrical means by use of a nail nipper and/or dremel, to more viable healthy nail plate or bed tissue 1-5. Silver nitrate used for any petechial bleeding as necessary. Patient chooses, no pharmaceutical tx (62207).?Nail Reduction:?Nail Reduction?Trimming of dystrophic nails performed to reduce/remove overall nail length and girth, by manual and electrical means with use of a nail nipper and/or dremel, to more viable healthy nail plate or bed tissue 6-10 (G0127).? * Procedure Codes:?89735 DEBRI DE NAIL, 1-5, Modifiers: XS G0127 TRIMMING DYSTROPHIC NAILS ANY #, Modifiers: XS * Preventive Medicine:? ??Counseling:?Discussion:?-13: Office or other outpatient visit for the evaluation and management of an established patient, which required a medically appropriate history and/or examination and LOW level of DECISION MAKING for: 1 STABLE ACUTE UNCOMPLICATED PROBLEM, 2 OR MORE MINOR PROBLEMS, OR 1 STABLE CHRONIC PROBLEM, THAT POSE(S) A LOW RISK FOR MORBIDITY/MORTALITY. The visit on the day of the encounter encompassed interpreting the data and educating the patient as to the nature of their condition, treatment options available according to their individual PMH, meds, allergies, and overall health/living conditions, as well as any potential risks or complications that may occur from a failure to adhere to, and participate in, the recommended course of therapy. The discussion included a complete verbal, and/or written explanation of the examination results, any x-rays taken, the proposed diagnosis, and outline of the treatment plan. A schedule for future care needs was also explained. The patient verbalized an understanding of the instructions at this time and agreed to be an active participant in their treatment. If the patient should think of any questions or concerns after the visit, I have encouraged the patient to call the office.?Tinea Pedis:?The patient was counseled on the diagnosis, potential etiologies, and treatment options for their skin condition. We discussed the risks and benefits of each option from performing no treatment, to utilizing OTC topical skin creams, prescription topical creams, customized compounded topical medications, and, if necessary, to utilize oral antifungal therapy. We discussed the advantages and disadvantages of each possible treatment and importance for adherence to all the recommended therapies for optimum success and avoid potential complications such as open sore/infection/possible hospitalization. We discussed the potential effectiveness of each topical preparation as well as each ones possible side effects and/or patient medication interactions if oral therapy is selected. Patient questions re: the advantages and disadvantages of each treatment choice, medication use/dosage, successful outcomes, and application consistency were reviewed and the patient verbalized that all answers were clearly understood. The patient was told they can help alleviate symptoms by utilizing moisture absorbant innersoles with activated charcoal and baking soda, applying antifungal sprays daily, aerating toe web spaces at night by putting cotton or lambs wool between the toes, alternating shoe gear daily if possible so they can dry out, changing socks at least once during the day, wearing well-ventilated shoes or sandals. The patient has decided to apply antifungal skin creams to their feet as directed. Rx was sent to their pharmacy at the time of visit, putting cotton or lambs wool between the toes, paint webspaces with betadine, Recomm topical antiperspiration sprays.? * Follow Up:?prn * Images: * Sign off status: Completed true * Provider:?Cass Lugo DPM Date:?2023 Generated for Oumou vásquez/Damian/Ayan on:?02/17/2024 09:38 AM EST History and Physical Notes * HPI (History of Present Illness) Category Sub-Category Detail Notes Category Not es Skin problems Location: Interspace(s)/Between toe(s ) Course: improved , at _60 % At Risk footcare Pt States Last PCP Visit: Date: 4 Examination Category Sub-Category Detail Notes Category Not es Ingrown Nail INSPECTION: Neurological SENSORY: Neurological exa m demonstrates reduced light touch sensation reduced sharp/dull pin prick discrimination reduced vibration sensation 5.07 monofilament test performed at plantar aspects of 5 varied sites per foot shows sensation reduced at Forefoot B/L Pt relates increased burning pins and needles sensation L>R TINEL'S COMPRESSION: Dermatologic SKIN FINDINGS: Skin shows sign( s) of, inflammation, interdigital maceration, vesicles, pruritus, B/L General Examination GENERAL APPEARANCE: Reveals a pleasant, alert, well nourished, well developed, well hydrated individual, who demonstrates proper attention to hygene/body habitus, and is in no acute distress ORIENTED: person, place, and t sarabjit Footwear Evaluation Footwear Evaluation performe d:: Ophthalmology Referral DIABETES EYE EXAM Diabetic Retinopa thy Screening:: Yes Findings of Diabetic Eye Exam:: no retin opathy Nails NAILS are: Elongated, overg rown, dystrophic, lytic, greater than 3mm thick, discolored and friable with crumbly malodorous subungual debris, with pain on palpation T5 , , remaining nails are elongated, overgrown, dystrophic
--- OUTSIDE RECORDS SUMMARY | 2024-02-17 09:38 | XMS_ITS | Encounter Summary ---
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 Organization [facility] Address [address] [place] [address] Care Team Providers Care Supervisor Veneer Name Role Phone LEV OCONNELL Primary Care [...] (PPO) FED EMPLO YEES Jan 26, 2020 [id number] [phone] ELIZABETH SMILEY JR PATIENT [employer] PREFERRED PROVIDER ORGANIZAT ION (PPO) [facility] Feb 25, 2016 [id number] [phone] ELIZABETH SMILEY JR PATIENT [employer] PREFERRED PROVIDER ORGANIZAT ION (PPO) [facility] Feb 25, 2016 [id number] [phone] ELIZABETH SMILEY PATIENT [employer] PREFERRED PROVIDER ORGANIZAT ION (PPO) [facility] Feb 25, 2016 [id number] ELIZABETH SMILEY JR PATIENT [employer] PREFERRED PROVIDER ORGANIZAT ION (PPO) DWAYNE MORALESO MIMI [facility] Feb 24, 2016 [id number] ELIZABETH SMILEY PATIENT [employer] PHARMACY MANAGEMENT PRESCRIPT ION [facility] DEEP COO[facility] Jan 26, 2020 [id number] ELIZABETH SMILEY JR PATIENT [employer] PHARMACY MANAGEMENT PRESCRIPT ION DAIANA Feb 25, 2016 [id number] ELIZABETH SMILYE PATIENT [employer] PHARMACY MANAGEMENT PRESCRIPT ION DW[facility]NE AL MIO MIMI Feb 25, 2016 [id number] ELIZABETH SMILEY PATIENT [employer] RX PRESCRIPT ION DWAYNE MORALESO MIMI COOLEY Feb 25, 2016 [id number] ELIZABETH SMILEY PATIENT [employer] RX PRESCRIPT ION [facility] Feb 25, 2016 [id number] [phone] ELIZABETH SMILEY JR PATIENT [employer] POINT OF SERVICE TYCO Mar 20, 2002 [id number] ELIZABETH SMILEY PATIENT [employer]* POINT OF SERVICE Mar 20, 2002 [id number] ELIZABETH SMILEY PATIENT Selected Encounter This section includes the information on record at [place] for the Encounter. Date/Time Encounter Type Encounter Description Reason Pro vider Source Dec 25, 2023 12:00 AM Outpatient Encounter EVENT (HISTORICAL) [...] 29, 2023 01:30 PM AMBULATORY - MEDICINE [facility] [place] [facility] Jan 13, 2024 01:00 PM [facility] [place] [facility] Mar 15, 2024 02:00 [facility] Active, Pending, and Scheduled Orders This section includes a listing of several types of active, pending, and scheduled orders, including clinic medications orders, diagnostic test orders, procedure orders and consult orders; where the start date of the order is 45 days before the date of the Encounter or 45 days after the date of theEncounter. The data comes from all [place] treatment facilities. Test Date/Time Test Type Test Details Facility Name Jan 10, 2024 10:02 PM Consult Order [facility] [employer] [facility]i [place] Social History: Smoking Status (Most current) and [...] Facil ity Feb 18, 2023 02:31 PM [place]-TOBACCO QUIT 15 YRS OR MORE [facility] Tobacco Use History This section includes a history of the smoking, or tobacco-related health factors, that were collected on or before the date of the Encounter. The data comes from the [place] facility where the Encounter took place. Date/Time Smoking Status/Tobacco Use Comment F acility Feb 18, 2023 02:31 PM [place] Dec 31, 2021 01:00 PM [place]-TOBACCO FORMER USER [place] [facility] [place] [facility] Dec 31, 2021 01:00 PM [place]-TOBAC[place] QUIT 15 YRS OR MORE [facility] Advance Directives: All historical and current [...] Nov 28, 2020 ADVANCE DIRECTIVE GOLDIE DUTTA [facility] IELD Encounter Notes: All associated encounter notes This section contains the clinical notes associated to the Encounter. Date/Time Encounter Note(s) Provider Source Dec 25, 2023 12:00 AM NONVA NOTE: LOCAL TITLE: NON-VA OUTPATIENT NOTES STANDARD TITLE: NONVA NOTE DATE OF NOTE: DEC 25, 2023 ENTRY DATE: FEB 04, 2024@09:03:34 AUTHOR: NOEMI HALE EXP COSIGNER: URGENCY: STATUS: COMPLETED VistA Imaging - Scanned Document SCANNED DOCUMENT SIGNATURE NOT REQUIRED Electronically Filed: 02/04/2024 by: NOEMI JIMÉNEZ [place] [facility]
--- OUTSIDE RECORDS SUMMARY | 2024-02-17 09:38 | XMS_ITS ---
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 Address [address] [place] [address] Care Team Providers Care Cabinet Installer Name Role Phone LEV OCONNELL Primary Care [...] PREFERRED PROVIDER ORGANIZAT ION (PPO) FED EMPLO [facility] Jan 26, 2020 [id number] ELIZABETH SMILEY JR PATIENT [employer] PREFERRED PROVIDER ORGANIZAT ION (PPO) DWAYNE AL EMPLO [facility] Feb 25, 2016 [id number] [phone] ELIZABETH SMILEY JR PATIENT [employer] PREFERRED PROVIDER ORGANIZAT ION (PPO) DWAYNE AL EMPL [facility] Feb 25, 2016 [id number] ELIZABETH SMILEY JR PATIENT [employer] PREFERRED PROVIDER ORGANIZAT ION (PPO) DWAYNE AL EMPL [facility] Feb 25, 2016 [id number] ELIZABETH SMILEY PATIENT A[employer] PREFERRED PROVIDER ORGANIZAT ION (PPO) DWAYNE AL MIO MIMI [facility] Feb 24, 2016 [id number] ELIZABETH SMILEY PATIENT [employer] PHARMACY MANAGEMENT PRESCRIPT ION DWAYNE AL EMPLO M[facility] Jan 26, 2020 [id number] ELIZABETH SMILEY JR PATIENT [employer] PHARMACY MANAGEMENT PRESCRIPT ION DWAYNE AL EMPLO MIMI Feb 25, 2016 [id number] ELIZABETH SMILEY PATIENT [employer] PHARMACY MANAGEMENT PRESCRIPT ION [facility] Feb 25, 2016 [id number] ELIZABETH SMILEY PATIENT [employer] RX PRESCRIPT ION FEHBP Feb 25, 2016 [id number] ELIZABETH SMILEY JR PATIENT AETNA RX PRESCRIPT ION DWAYNE AL EMPLO MIMI [facility] Feb 25, 2016 [id number] ELIZABETH SMILEY PATIENT [employer] POINT OF SERVICE [employer] Mar 20, 2002 [id number] ELIZABETH SMILEY PATIENT [employer]* POINT OF SERVICE Mar 20, 2002 [id number] ELIZABETH SMILEY PATIENT Selected Encounter This section includes the information on record at [place] for the Encounter. Date/Time Encounter Type Encounter Description Reason Pro vider Source Jan 01, 2024 12:00 AM Outpatient Encounter EVENT (HISTORICAL) [...] 13, 2024 01:00 PM [facility] [place] [facility] Mar 15, 2024 02:00 PM AMBULATORY - MEDICINE [facility] Active, Pending, and Scheduled Orders This section includes a listing of several types of active, pending, and scheduled orders, including clinic medications orders, diagnostic test orders, procedure orders and consult orders; where the start date of the order is 45 days before the date of the Encounter or 45 days after the date of theEncounter. The data comes from all [place] treatment facilities. 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 Social History: Smoking Status (Most current) and [...] 18, 2023 02:31 PM [place]-TOBACCO FORMER USER [facility] Tobacco Use History This section includes a history of the smoking, or tobacco-related health factors, that were collected on or before the date of the Encounter. The data comes from the [place] facility where the Encounter took place. Date/Time Smoking Status/Tobacco Use Comment F acility Feb 18, 2023 02:31 PM [place]-TO[place]AC[place] QUIT 15 YRS OR MORE [facility] Dec 31, 2021 01:00 PM [facility] Dec 31, 2021 01:00 PM [place]-TOBAC[place] QUIT 15 YRS OR MORE [facility] Advance Directives: All historical and current [...] Aug 07, 2021 ADVANCE DIRECTIVE RADHA SAHA [facility] Nov 28, 2020 ADVANCE DIRECTIVE GOLDIE DUTTA [facility] Encounter Notes: All associated encounter notes This section contains the clinical notes associated to the Encounter. Date/Time Encounter Note(s) Provider Source Jan 01, 2024 12:00 AM NONVA NOTE: LOCAL TITLE: NON-VA OUTPATIENT NOTES STANDARD TITLE: NONVA NOTE DATE OF NOTE: JAN 01, 2024 ENTRY DATE: FEB 05, 2024@10:46:45 AUTHOR: ALFONSO EID EXP COSIGNER: URGENCY: STATUS: COMPLETED VistA Imaging - Scanned Document SCANNED DOCUMENT SIGNATURE NOT REQUIRED Electronically Filed: 02/05/2024 by: ALFONSO CUEVA [place] [facility]
--- OUTSIDE RECORDS SUMMARY | 2024-02-17 09:38 | XMS_ITS ---
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 Address [address] [place] [address] Care Team Providers Care Senior Professional Services Consultant Name Role Phone LEV OCONNELL Primary [...] (PPO) FED EMPLO [facility] Jan 26, 2020 [id number] ELIZABETH SMILEY JR PATIENT [employer] PREFERRED PROVIDER ORGANIZAT ION (PPO) DWAYNE AL EMPL [facility] Feb 25, 2016 [id number] ELIZABETH SMILEY JR PATIENT AETNA PREFERRED PROVIDER ORGANIZAT ION (PPO) DWAYNE AL EMPL [facility] Feb 25, 2016 [id number] ELIZABETH SMILEY PATIENT [employer] PREFERRED PROVIDER ORGANIZAT ION (PPO) DWAYNE AL EMPLO [facility] Feb 25, 2016 [id number] ELIZABETH SMILEY JR PATIENT [employer] PREFERRED PROVIDER ORGANIZAT ION (PPO) DWAYNE SILVA Feb 24, 2016 [id number] ELIZABETH SMILEY PATIENT [employer] PHARMACY MANAGEMENT PRESCRIPT ION DWAYNE SILVA Jan 26, 2020 [id number] ELIZABETH SMILEY JR PATIENT [employer] PHARMACY MANAGEMENT PRESCRIPT ION DAIANA Feb 25, 2016 [id number] ELIZABETH SMILEY PATIENT [employer] PHARMACY MANAGEMENT PRESCRIPT ION DWAYNE AL MIO MIMI Feb 25, 2016 [id number] ELIZABETH SMILEY PATIENT AETNA RX PRESCRIPT ION DWAYNE SILVA Feb 25, 2016 [id number] ELIZABETH SMILEY PATIENT AETNA RX PRESCRIPT ION FEHBP Feb 25, 2016 [id number] ELIZABETH SMILEY JR PATIENT [employer] POINT OF SERVICE [employer] Mar 20, 2002 [id number] ELIZABETH SMILEY PATIENT [employer]IGNA* POINT OF SERVICE Mar 20, 2002 [id number] ELIZABETH SMILEY PATIENT Selected Encounter This section includes the information on record at [place] for the Encounter. Date/Time Encounter Type Encounter Description Reason Provider Source Feb 10, 2024 02:28 PM Outpatient Encounter PRIMARY CARE/MEDICINE [facility] Encounter Template Text not used by [place] [...] 10:02 PM Consult Order [facility]NEUROLOGY Cons Restaurant Floor Manager's Choice [facility] Feb 16, 2024 03:57 PM Consult Order PAIN CLINI C/[facility] OUTPT Cons Restaurant Floor Manager's [facility] Mar 17, 2024 12:00 AM Laboratory - Chemi stry Order LIPID PANEL FASTING BLOOD (SST-SERUM) [facility] Mar 17, 2024 12:00 AM Laboratory - Chemi stry Order BASIC METABOLIC PANEL (fasting) BLOOD (SST-SERUM) [facility] Mar 17, 2024 12:00 AM Laboratory - Chemi stry Order LIVER FUNCTION BLOOD (SST-SERUM) [facility] Mar 17, 2024 12:00 AM Laboratory - Chemi stry Order CBC AND DIFF (AUTO) BLOOD (LAV-BLOOD) [facility] Mar 17, 2024 12:00 AM Laboratory - Chemi stry Order HEMOGLOBIN A1C PANEL BLOOD (LAV-BLOOD) [facility] Mar 17, 2024 12:00 AM Laboratory - Chemi stry Order TSH BLOOD (SST-SERUM) [facility] Mar 17, 2024 12:00 AM Laboratory - Chemi stry Order MICROALBUMIN CREATININE RATIO PANEL URINE (RANDOM) [facility] Social History: Smoking Status (Most current) [...] 15 YRS OR MORE [place] [facility] [place] [facility] Tobacco Use History This section includes a history of the smoking, or tobacco-related health factors, that were collected on or before the date of the Encounter. The data comes from the [place] facility where the Encounter took place. Date/Time Smoking Status/Tobacco Use Comment F acility Feb 18, 2023 02:31 PM VA-TOBACCO QUIT 15 YRS OR [facility] Dec 31, 2021 01:00 PM VA-TOBACCO FORMER USER [place] [facility] [place] [facility] Dec 31, 2021 01:00 PM [place]-TOBACCO QUIT 15 YRS OR MORE [facility] Advance Directives: All historical and current Section Date Range: From patient's date of to the date document was created. This section includes ALL of a patient's completed or amended [place] Advance and Rescinded Directives. The entries below indicate that a directive exists for the patient, but an actual copy is not included with this document. The data comes from all [place] facilities. Date Advance Directives Provider Source July 02, 2022 ADVANCE DIRECTIVE SANDRA BROOKS [facility] Aug 07, 2021 ADVANCE DIRECTIVE RADHA SAHA [facility] Nov 28, 2020 ADVANCE DIRECTIVE GOLDIE DUTTA [facility] Encounter Notes: All associated encounter notes This section contains the clinical notes associated to the Encounter. Date/Time Encounter Note(s) Provider Source Feb 12, 2024 02:56 PM PRIMARY CARE BooktrackUR E MESSAGING: LOCAL TITLE: PRIMARY CARE SECURE MESSAGING STANDARD TITLE: PRIMARY CARE SECURE MESSAGING DATE OF NOTE: FEB 12, 2024@14:56 ENTRY DATE: FEB 12, 2024@14:56:24 AUTHOR: SANDRA BROOKS EXP COSIGNER: URGENCY: STATUS: COMPLETED PRIMARY CARE SECURE MESSAGING Has ADDENDA ------Original Message -------- Sent: 02/12/2024 02:49 PM ET From: ELIZABETH SMILEY To: Annabel OCONNELL [facility] Subject: General:Neurology Consult I would be willing to be seen by physiatry. /bienvenido/ SANDRA MENESES Signed: 02/12/2024 14:56 Receipt Acknowledged By: * AWAITING SIGNATURE * MAXIMO HOFFMAN 02/16/2024 14:24 /bashir DIAL RN REGISTERED NURSE 02/16/2024 ADDENDUM STATUS: COMPLETED Pain management consult placed and held for PCP signature. /bashir DIAL RN REGISTERED NURSE Signed: 02/16/2024 14:20 SANDRA BROOKS [facility] Feb 10, 2024 02:28 PM PRIMARY CARE SECUR E MESSAGING: LOCAL TITLE: PRIMARY CARE SECURE MESSAGING STANDARD TITLE: PRIMARY CARE SECURE MESSAGING DATE OF NOTE: FEB 10, 2024@14:28 ENTRY DATE: FEB 10, 2024@14:28:48 AUTHOR: STEVEN DIAL EXP COSIGNER: URGENCY: STATUS: COMPLETED ------Original Message -------- Sent: 02/10/2024 02:28 PM ET From: STEVEN DIAL To: ELIZABETH SMILEY Subject: General:Neurology Consult Hello Mr. SMILEY, I tried to call you on the phone but could not reach you. We would like to inform you that the neurology consult we did for you was declined, and that they are recommended evaluation by physiatry. Please let us know if you are interested in the physiatry so that we can place a consult for that in [place]. We have also placed another consult to pain management per their recommendation. Thank you. Steven. CLYDE DAVEY. /bashir DIAL RN REGISTERED NURSE Signed: 02/10/2024 14:28 STEVEN DIAL [facility]
--- OUTSIDE RECORDS SUMMARY | 2024-02-17 09:38 | XMS_ITS ---
Author Organization [facility] Address [address] [place] [address] Care Team Providers Care Drums Teacher Name Role Phone Dylan Cat Primary Care Provider Unavailable Cass Lugo [phone] Encounters Encounter Location Date Provider Diagnosis [address] [address] 06/05/2023 Cass Lugo Plan Of Treatment Next Appt Details Provider Name:Cass Lugo , 06/24/2024 02:00:00 PM, [address] [place] [address], [phone], Progress Notes * Major SMILEY JrDOB: (64 yo M)Acc No.[id number]:06/05/2023 Progress Note Patient:?Major SMILEY Provider:?Cass Lugo DPM :1960???Age:63 Y???Sex:Male Moisés e:06/05/2023 Address:[id number] Pcp:Dylan villalobos Subjective: * Chief Complaints: * ??? * Medical History:? Objective: * Vitals:? Assessment: Plan: * Treatment: * Images: * The named appointment provid er may or may not be the originator of this progress note, and it is not deemed complete until electronically signed by the appointment provider. Sign off status: Pending * Provider:Rosy Lugo DPM Date:?2023 Generated for Oumou vásquez/Damian/Ayan on:?02/17/2024 09:38 AM EST
--- OUTSIDE RECORDS SUMMARY | 2024-02-17 09:38 | XMS_ITS | Encounter Summary ---
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 Address [address] [place] [address] Care Team Providers Care Deputy Chief Magistrate Name Role Phone LEV OCONNELL Primary [...] [facility] Jan 26, 2020 [id number] [phone] ELIZABETH SMILEY JR PATIENT [employer] PREFERRED PROVIDER ORGANIZAT ION (PPO) DWAYNE AL EMPLO [facility] Feb 25, 2016 [id number] ELIZABETH SMILEY JR PATIENT [employer] PREFERRED PROVIDER ORGANIZAT ION (PPO) DWAYNE AL EMPL [facility] Feb 25, 2016 [id number] ELIZABETH SMILEY JR PATIENT [employer] PREFERRED PROVIDER ORGANIZAT ION (PPO) DWAYNE AL EMPL [facility] Feb 25, 2016 [id number] ELIZABETH SMILEY PATIENT A[employer] PREFERRED PROVIDER ORGANIZAT ION (PPO) DWAYNE AL MIO MIMI COOLEY Feb 24, 2016 [id number] ELIZABETH SMILEY PATIENT [employer] PHARMACY MANAGEMENT PRESCRIPT ION DWAYNE AL EMPLO MIMI Jan 26, 2020 [id number] ELIZABETH SMILEY JR PATIENT [employer] PHARMACY MANAGEMENT PRESCRIPT ION DAIANA Feb 25, 2016 [id number] ELIZABETH SMILEY PATIENT A[employer]NA PHARMACY MANAGEMENT PRESCRIPT ION DWAYNE AL EMPLO MIMI Feb 25, 2016 [id number] ELIZABETH SMILEY PATIENT AETNA RX PRESCRIPT ION DWAYNE AL EMPLO MIMI Feb 25, 2016 [id number] ELIZABETH SMILEY PATIENT AETNA RX [facility]CRIPT [facility] Feb 25, 2016 [id number] ELIZABETH SMILEY JR PATIENT [employer] POINT OF SERVICE [employer] Mar 20, 2002 [id number] ELIZABETH SMILEY PATIENT [employer]IG[employer]* POINT OF SERVICE Mar 20, 2002 [id number] ELIZABETH SMILEY PATIENT Selected Encounter This section includes the information on record at [place] for the Encounter. Date/Time Encounter Type Encounter Description Reason Pro vider Source Dec 30, 2023 12:00 AM Outpatient Encounter EVENT (HISTORICAL) I[facility] Encounter Template Text not used by [place] Plan of Treatment: Future Appointments (+ 6 months) and Future Tests (+/- 45 days) The Plan of Treatment section includes future care activities for the patient from all [place] treatmentfacilities. This section includes future appointments and [...] 13, 2024 01:00 PM AMBULATORY - MEDICINE [facility] [place] [facility] Mar 15, 2024 02:00 PM AMBULATORY [...] of theEncounter. The data comes from all [place] treatment facilities. Test Date/Time Test Type Test Details Facility Name Jan 10, 2024 10:02 PM Consult Order [facility]UROLOG[facility] Refining Equipment Operator's [facility] Social History: Smoking Status (Most current) and [...] 2023 02:31 PM VA-TOBACCO FORMER USER [facility] Tobacco Use History This section includes a history of the smoking, or tobacco-related health factors, that were collected on or before the date of the Encounter. The data comes from the [place] facility where the Encounter took place. Date/Time Smoking Status/Tobacco Use Comment F acility Feb 18, 2023 02:31 PM [place]-TO[place] 15 YRS OR [facility] Dec 31, 2021 01:00 PM VA-TOBACCO [facility] Dec 31, 2021 01:00 PM [place]-TOBACCO QUIT 15 YRS OR MORE [facility] Advance Directives: All historical and [...] Aug 07, 2021 ADVANCE DIRECTIVE RADHA SAHA [facility] Nov 28, 2020 ADVANCE DIRECTIVE GOLDIE DUTTA [facility] Encounter Notes: All associated encounter notes This section contains the clinical notes associated to the Encounter. Date/Time Encounter Note(s) Provider Source Dec 30, 2023 12:00 AM NONVA DIAGNOSTIC Vandana NORTON REPORT: LOCAL TITLE: NON-VA DIAGNOSTICS STANDARD TITLE: NONVA DIAGNOSTIC STUDY REPORT DATE OF NOTE: DEC 30, 2023 ENTRY DATE: FEB 05, 2024@10:42 AUTHOR: ALFONSO EID EXP COSIGNER: URGENCY: STATUS: COMPLETED VistA Imaging - Scanned Document SCANNED DOCUMENT SIGNATURE NOT REQUIRED Electronically Filed: 02/05/2024 by: ALFONSO CUEVA [place] [facility]
--- OUTSIDE RECORDS SUMMARY | 2024-02-17 09:38 | XMS_ITS ---
Author Organization [facility] Address [address] [facility] [place] [address] Care Team Providers Care Centrifuge Separator Operator Name Role Phone Dylan Cat Primary Care Provider Unavailable Black, Cass Unavailable [phone] Allergies Allergen (clinical drug ingredient) Drug/Non Drug [...] Duration) Notes Start Date End Date Status Cozaar Not-Taking Ciclopirox Olamine 0.77 % 1 application to affected area Externally Twice a day for 30 days 01/13/2012 Not-Taking Levitra Not-Taking Inspra Not-Taking Synthroid Not-Taking traMADol HCl 50 MG 1 tablet as needed Orally every 6 hrs Not-Taking metFORMIN HCl 500 MG 1 tablet with a meal Orally Twice a day Not-Taking Zestril Not-Taking Diabetic Insoles Not -Taking glyBURIDE Not-Taking Vitamin D 2000 UNIT as directed Orally Once a day Not-Taking Sparsentan Not-Takin g metFORMIN HCl 500 MG 1 tablet with a meal Orally Once a day for 30 day(s) Not-Taking Vitamin B12 Active Ciclopirox Olamine 0.77 % 1 application to affected area Externally to feet Twice a day for 30 days Active Baclofen 10 MG 1 tablet as needed Orally Twice a day Active Levothyroxine Sodium 0.2 mg Mon-SAT , 0.1mg Sun Active Magnesium Gluconate 500 MG 1 tablet Orally Once a day for 30 day(s) Active Aspirin 81 mg qd Active Atorvastatin Calcium 40 MG 1 tablet Orally Once a day for 30 day(s) Active Fish Oil 1000 MG 1 capsule Orally Once a day for 30 day(s) Active Empagliflozin 10 MG 1 tablet Orally Once a day for 30 day(s) Active amLODIPine Besylate 5 MG 1 tablet Orally Once a day for 30 day(s) Active clonazePAM 0.5 MG as directed Orally Active amLODIPine Besylate 5 MG 1 tablet Orally Once a day for 30 day(s) Active Irbesartan 300 MG 1 tablet Orally Once a day for 30 day(s) Active betadine Active Vitamin D3 Active Ozempic Active Loratadine 10 MG 1 tablet Orally Once a day for 30 day(s) Active Vital Signs Height 5ft 7in in 12/25/2023 Weight 230 lbs 12/25/2023 BMI 36.02 kg/m2 12/25/2023 Blood pressure systolic 116 mm Hg 12/25/19 24 Blood pressure diastolic 74 mm Hg 024 Procedures Procedure Date Ordered Date Performed Result Body Sit e 46392-CDHVHTP NAIL, 1-5 12/25/2023 N/A 27036-NLYG SKIN LESIONS, 2 TO 4 12/25/2023 N/A Encounters Encounter Location Date Provider Diagnosis [facility] [address] [address] 12/25/2023 Cass Black Type 2 diabetes mellitus with diabetic polyneuropathy E11.42 ; Tinea pedis B35.3 ; Tinea unguium B35.1 and Skin maceration L98.8 Assessments Encounter Date Diagnosis (ICD Code) Assessment Notes Treatment Notes Treatment Clinical Notes Section Notes 12/25/2023 Type 2 diabetes mellitus with diabetic polyneuropathy (ICD-10 - E11.42) 12/25/2023 Tinea pedis (ICD-10 - B35.3) 12/25/2023 Tinea unguium (ICD-10 - B35.1) 12/25/2023 Skin maceration (ICD-10 - L98.8) Plan Of Treatment Medication Medication Name Sig Start Date Stop Date Notes betadine Pending Test Test Name Order Date 66433-TEEALZK NAIL, 1-5 12/25/2023 92734-WUJN SKIN LESIONS, 2 TO 4 12/25/19 24 Next Appt Details Follow Up: prn, Reason: Provider Name:Cass Lugo , 06/24/2024 02:00:00 PM, [address] [place], [address], Procedure Notes * Category Sub-Category Detail Notes [...] as necessary. Patient chooses, no pharmaceutical tx (14278) Nail Reduction Nail Reduction Trimming of dyst rophic nails performed to reduce/remove overall nail length and girth, by manual and electrical means with use of a nail nipper and/or dremel, to more viable healthy nail plate or bed tissue 6-10 (G0127) Progress Notes * Major SMILEY JrDOB: (63 yo M)Acc No.[id number]:12/25/2023 Progress Note Patient:?Major Smiley Provider:?Cass LugoLACIE :1960???Age:63 Y???Sex:Male Moisés e:12/25/2023 Address:[address] [place] [address] [id number] Pcp:Dylan villalobos Subjective: * Chief Complaints: * ???At Risk FootcareSkin prob jeramie * HPI: ???At Risk footcare:?Pt States Last PCP Visit:?Date?02/28/2023 ???Skin problems:?Location:?Interspace(s)/Between toe(s).?Course:??recurrent.? * ROS:?General/Constitutional:?Nausea?denies.?Vomiting?denies.?Hunger Thirst?denies.?Loss appetite?denies.?Chills?denies.?Fatigue?denies.?Fever?denies.?Night Sweats?denies.?Unexplained weight loss?denies.?Unexplained [...] uncle: diagnosed with Unspecified heart disease.? * Medications:?TakingIrbesarta n 300 MG Tablet 1 [...] affected area Externally to feet Twice a dayVitamin B12 betadine Taking Irbesartan 300 MG Tablet 1 tablet [...] dayTaking Levothyroxine Sodium , Notes: 0.2 mg Mon-SAT , 0.1mg SunTaking Atorvastatin Calcium 40 MG Tablet 1 tablet Orally Once a dayTaking Aspirin 81 mg qdTaking Ciclopirox Olamine 0.77 % Cream 1 application to affected area Externally to feet Twice a dayTaking Vitamin B12 Taking betadine Not-Taking/PRNSparsentan metFORMIN HCl 500 MG Tablet 1 [...] shutdownNSAIDs: renal shutdownHazelnut: migrainesyes[Allergies Verified] Objective: * Vitals:?Ht:5ft 7in, Wt:230, BMI:36.02, Shoe size:9.5 extra wide, BP:116/74 mm Hg, BS:150, Ht-cm: 170.18 cm, Wt-k.33 kg. * ???Past Orders: ???Lab:HEMOGLOBIN A1C (GLYCO HEMOGLOBIN) (Order Date - 06/18/2023) (Collection Date - 06/18/2023) ? Value Reference Range ?HEMOGLOBIN A1C (HH) 7.4 * Examination: ???Ophthalmology Referral: ?DIABETES EYE EXAM?General Examination: ?GENERAL APPEARANCE:?Reveals a pleasant, alert, well nourished, well developed, well hydrated individual, who demonstrates proper attention to hygene/body habitus, and is in no acute distress.?ORIENTED:?person, place, and time.?FOOT EXAM:?Neurological: ?SENSORY:?Neurological exam demonstrates reduced light touch sensation reduced sharp/dull pin prick discrimination reduced vibration sensation 5.07 monofilament test performed at plantar aspects of 5 varied sites per foot shows sensation reduced at Forefoot B/L?.?Dermatologic: ?SKIN FINDINGS:?Skin shows sign(s) of, cont.inflammation, interdigital maceration, vesicles, pruritus, B/L , Skin exam reveals Keratotic lesion(s) located at , Heel(s) , B/L.?Nails: ?NAILS are:?Elongated, overgrown, dystrophic, lytic, greater than 3mm thick, discolored and friable with crumbly malodorous subungual debris, with pain on palpation T5 , , remaining nails are elongated, overgrown, dystrophic 1-5 Left ,2-5 Right.? Assessment: * Assessment: 1.?Tinea pedis - B35.3 (Prim robert), Acute problem, Uncomplicated (3)?2.?Type 2 diabetes mellitus with diabetic polyneuropathy - E11.42?3.?Tinea unguium - B35.1?4.?Skin maceration - L98.8, Acute problem, Uncomplicated (3)? Plan: * Treatment: 2.?Tinea unguium?Procedure: 16986-CQVUAXQ NAIL, 1-5 3.?Skin maceration? Start betadine.?? * Procedures:?Debride Nails 1-5:?Procedure:?Nail debridement performed extensively to reduce/remove overall nail length and girth, subungual debris, and necrotic tissue, by manual and electrical means by use of a nail nipper and/or dremel, to more viable healthy nail plate or bed tissue 1-5. Silver nitrate used for any petechial bleeding as necessary. Patient chooses, no pharmaceutical tx (03085).?Nail Reduction:?Nail Reduction?Trimming of dystrophic nails performed to reduce/remove overall nail length and girth, by manual and electrical means with use of a nail nipper and/or dremel, to more viable healthy nail plate or bed tissue 6-10 (G0127).? * Procedure Codes:?42780 DEBRI DE NAIL, 1-5, Modifiers: XS G0127 TRIMMING DYSTROPHIC NAILS ANY #, Modifiers: XS 30312 TRIM SKIN LESIONS, 2 TO 4, Modifiers: XS * Preventive Medicine:? ??Counseling:?Discussion:?-13: Office [...] wool between the toes, paint webspaces with betadine.Discussed oral medication however due to kidney disease we defer on moving forward with any oral medicine, PREVENTIVE STRATEGIES were reviewed with the patient to avoid recurrent issues ..? * Follow Up:?prn * Images: * Sign off status: Completed true * Provider:?Cass Lugo DPM Date:?2023 Generated for Oumou vásquez/Damian/Ayan on:?02/17/2024 09:38 AM EST History and Physical Notes * HPI (History of Present Illness) Category Sub-Category Detail Notes Category Not es Skin problems Location: Interspace(s)/Between toe(s ) Course: recurrent At Risk footcare Pt States Last PCP Visit: Date: 4 Examination Category Sub-Category Detail Notes Category Not es Ingrown Nail INSPECTION: Neurological SENSORY: Neurological exa m demonstrates reduced light touch sensation reduced sharp/dull pin prick discrimination reduced vibration sensation 5.07 monofilament test performed at plantar aspects of 5 varied sites per foot shows sensation reduced at Forefoot B/L TINEL'S COMPRESSION: Dermatologic SKIN FINDINGS: Skin shows sign( s) of, cont.inflammation, interdigital maceration, vesicles, pruritus, B/L , Skin exam reveals Keratotic lesion(s) located at , Heel(s) , B/L General Examination GENERAL APPEARANCE: Reveals a pleasant, alert, well nourished, well developed, well hydrated individual, who demonstrates proper attention to hygene/body habitus, and is in no acute distress FOOT EXAM: Lower Extremity Neurological Exa m performed:: Yes Visual exam of foot performed:: Yes Date: 12/25/2023 Sensory testing performed:: sensations d iminished Sensory and motor testing performed:: se nsations diminished Pedal pulse taking performed:: 2+ ORIENTED: person, place, and t sarabjit Footwear Evaluation Footwear Evaluation performe d:: Ophthalmology Referral DIABETES EYE EXAM Diabetic Retinopa thy Screening:: Yes Findings of Diabetic Eye Exam:: no retin opathy Nails NAILS are: Elongated, overg rown, dystrophic, lytic, greater than 3mm thick, discolored and friable with crumbly malodorous subungual debris, with pain on palpation T5 , , remaining nails are elongated, overgrown, dystrophic 1-5 Left ,2-5 Right
--- OUTSIDE RECORDS SUMMARY | 2024-02-17 09:39 | XMS_ITS | Patient Health Record ---
Author Organization [facility] Address [address] [place] [address] Care Team Providers Care Human Resource Internship Name Role Phone Dylan Cat Primary Care Provider Unavailable Black, Cass Unavailable [phone] Allergies Allergen (clinical drug ingredient) Drug/Non Drug Allergy documented on EMR Reaction Allergy Type Onset Date Status Hazelnut (uncoded) migraines Allergy A ctive ibuprofen Advil renal shutdown Drug Allergy Ac tive Aleve renal shutdown Drug Allergy Ac tive Motrin renal shutdown Drug Allergy Ac tive aspirin Aspirin renal shutdown Drug Allergy Ac tive Non-steroidal anti-inflammatory agent (FN) NSAIDs renal shutdown Drug Allergy Active Results Component Value Reference Range Notes HEMOGLOBIN A1C (GLYCOHEMOGLO BIN) Reviewed date:06/26/2023 10:12:24 AM Interpretation: Performing Lab: Notes/Report: HEMOGLOBIN A1C (HH) 7.4 Reason For Referral No Information Medications Medication SIG (Take, Route, Frequency, Duration) Notes Start Date End Date Status traMADol HCl 50 MG 1 tablet as needed Orally every 6 hrs Not-Taking Irbesartan 300 MG 1 tablet Orally Once a day for 30 day(s) Active Vitamin D 2000 UNIT as directed Orally Once a day Not-Taking metFORMIN HCl 500 MG 1 tablet with a meal Orally Twice a day Not-Taking Sparsentan Not-Takin g metFORMIN HCl 500 MG 1 tablet with a meal Orally Once a day for 30 day(s) Not-Taking Vitamin B12 Active Aspirin 81 mg qd Active Ciclopirox Olamine 0.77 % 1 application to affected area Externally to feet Twice a day for 30 days Active Atorvastatin Calcium 40 MG 1 tablet Orally Once a day for 30 day(s) Active Baclofen 10 MG 1 tablet as needed Orally Twice a day Active Levothyroxine Sodium 0.2 mg Mon-SAT , 0.1mg Sun Active Fish Oil 1000 MG 1 capsule Orally Once a day for 30 day(s) Active Magnesium Gluconate 500 MG 1 tablet Orally Once a day for 30 day(s) Active Empagliflozin 10 MG 1 tablet Orally Once a day for 30 day(s) Active Cozaar Not-Taking betadine Active amLODIPine Besylate 5 MG 1 tablet Orally Once a day for 30 day(s) Active Ciclopirox Olamine 0.77 % 1 application to affected area Externally Twice a day for 30 days 01/13/2012 Not-Taking clonazePAM 0.5 MG as directed Orally Active Levitra Not-Taking amLODIPine Besylate 5 MG 1 tablet Orally Once a day for 30 day(s) Active Inspra Not-Taking Vitamin D3 Active Zestril Not-Taking Ozempic Active Synthroid Not-Taking Diabetic Insoles Not -Taking glyBURIDE Not-Taking Loratadine 10 MG 1 tablet Orally Once a day for 30 day(s) Active Immunizations Vaccine Route Administration Date Status Comme nts Influenza Unknown 11/23/2014 Administered Influenza Unknown 10/18/2021 Administered Influenza Unknown 12/18/2022 Administered Social History Tobacco Use: Social History Observation [...] Are you an other tobacco user? No Problems Problem Type SNOMED Code ICD Code Onset Dates Problem Status W/U Status Risk Notes Problem Acquired hammer toe of right foot (7713639855583455 ) Other hammer toe(s) (acquired), right foot (M20.41) Active confirmed Problem Acquired hammer toe of left foot (5053847470168943 ) Other hammer toe(s) (acquired), left foot (M20.42) Active confirmed Problem Polyneuropathy due to type 2 diabetes mellitus (511545213) Type 2 diabetes mellitus with diabetic polyneuropathy (E11.42) Active confirmed Vital Signs Blood pressure diastolic 74 mm Hg 12/25/2023 Height 5ft 7in in 12/25/2023 Blood pressure systolic 116 mm Hg 12/25/2023 Weight 230 lbs 12/25/2023 BMI 36.02 kg/m2 12/25/2023 Procedures Procedure Date Ordered Date Performed Result Body Sit e 21155-JSLRSTT NAIL, 1-5 06/26/2023 N/A D0946-OSHNPALS DYSTROPHIC NAILS ANY # 06/26/2023 N/A 15610-BIQMHTO NAIL, 1-5 12/25/2023 N/A 91797-SKLB SKIN LESIONS, 2 TO 4 12/25/2023 N/A Encounters Encounter Location Date [facility] [address] 06/26/2023 Cass Lugo Type 2 diabetes mellitus with diabetic polyneuropathy E11.42 ; Tinea unguium B35.1 ; Skin maceration L98.8 and Tinea pedis B35.[address] [address] 12/25/2023 Cass Lugo Type 2 diabetes mellitus with diabetic polyneuropathy E11.42 ; Tinea pedis B35.3 ; Tinea unguium B35.1 and Skin maceration L98.[address] [address] 06/02/2023 Cass Black Assessments Encounter Date Diagnosis (ICD Code) Assessment Notes Treatment Notes Treatment Clinical Notes Section Notes 06/26/2023 Tinea unguium (ICD-10 - B35.1) 06/26/2023 Type 2 diabetes mellitus with diabetic polyneuropathy (ICD-10 - E11.42) 12/25/2023 Tinea pedis (ICD-10 - B35.3) 12/25/2023 Type 2 diabetes mellitus with diabetic polyneuropathy (ICD-10 - E11.42) 06/26/2023 Skin maceration (ICD-10 - L98.8) 12/25/2023 Tinea unguium (ICD-10 - B35.1) 06/26/2023 Tinea pedis (ICD-10 - B35.3) 12/25/2023 Skin maceration (ICD-10 - L98.8) Plan Of Treatment Pending Test Test Name Order Date Hemoglobin A1c 01/30/2015 29642-LBOJFQE NAIL, 6 OR MORE 01/13/2012 68488-KTKPKQH NAIL, 6 OR MORE 06/29/2012 01359-ZAFVVID NAIL, 6 OR MORE 12/24/2012 91569-TCQXBLV NAIL, 6 OR MORE 01/07/2011 90744-JLBYNML NAIL, 6 OR MORE 06/24/2013 20048-ACNGAJG NAIL, 1-5 07/08/2011 74314-RRUZGHP NAIL, 1-5 01/10/2014 52758-EHAZJEH NAIL, 1-5 06/30/2014 89498-SSISWEX NAIL, 1-5 01/30/2015 93902-RMXLWFE NAIL, 1-5 07/27/2015 49914-RVOOLBS NAIL, 1-5 12/25/2023 16044-TGXJANS NAIL, 1-5 01/15/2016 30067-UXFCQFV NAIL, 1-5 08/30/2021 44687-UTPKGGU NAIL, 1-5 01/21/2022 83973-ZOHREUQ NAIL, 1-5 11/07/2022 13678-HOYMTTM NAIL, 1-5 06/26/2023 42098-Dwrowjwd Plate 08/30/2021 51926-FDWF SKIN LESIONS, 2 TO 4 01/15/20 16 05831-UTLC SKIN LESIONS, 2 TO 4 12/25/19 24 12221-UEUV SKIN LESIONS, 2 TO 4 01/31/20 15 87976-MYVH SKIN LESIONS, 2 TO 4 07/27/19 16 41246-WFXO SKIN LESIONS, 2 TO 4 07/01/19 15 71866-ZPZC SKIN LESIONS, 2 TO 4 06/25/19 14 69603-LECU SKIN LESIONS, 2 TO 4 01/11/20 14 19739-NGNR SKIN LESIONS, 2 TO 4 12/25/19 13 38030-CLSD NAIL(S) 06/30/2014 47801-QVCO NAIL(S) 01/10/2014 86008-TWNC NAIL(S) 07/27/2015 86647-JVNT NAIL(S) 01/30/2015 17347-QFWU NAIL(S) 01/15/2016 J7673-FCVDXBAN DYSTROPHIC NAILS ANY # Next Appt Details Provider Name:Cass Lugo , 06/24/2024 02:00:00 PM, [address] [place], [address], Insurance Providers Payer Name Payer Address Payer Phone Subscriber Number Group Number Insured Name Patient Relationship to Insured Coverage Start Date Coverage End Date [employer] POS [address] [address] [place] [address] [id number] Major Tidwell Self - patient is the insured Medical (General) History Medical History History ICD Code warts thyroid disorder reflux kidney disease hypertension diabetic chicken pox Back,Hip,and Knee pain Cancer Kidney disease Numbness Sciatica Joint implants/screws Surgical History Surgery Date(Month/Year) laparotomy 2002 colonoscopy 2011 tonsillectomy and adenoidectomy Late 89 0's deviated septum repair 1997 prostatectomy 2002 discectomy LS/S1 09/2016 fusion LS/S1 04/2017
[2024-02-17 13:47] LABS: Anion Gap 10 (12-20); Blood Urea Nitrogen 46 mg/dL (9-16); Carbon Dioxide 28 mmol/L (22-29); Chloride 106 mmol/L (96-108); Estimated Glomerular Filt Rate 34; Potassium 4.8 mmol/L (3.3-5.1); Sodium 139 mmol/L (135-145)
[2024-02-17 13:49] LABS: Creatinine Urine 58.26 mg/dL; Protein/Creatinine Ratio, Ur 2.06 (<0.2); Total Protein Urine Random 120 mg/dL (<12)
== END 2024-02-17 09:26 | disposition home or self-care (01) ==
LOC: HO.HMGCLDS 09:25
PROVIDERS: PCP Internal Medicine; Visit Provider Internal Medicine Nephrology
DX: R80.8 Other proteinuria (principal); N18.31 Chronic kidney disease, stage 3a; I15.1 Hypertension secondary to other renal disorders; N04.1 Nephrotic syndrome with focal and segmental glomerular lesions
CPT/HCPCS: 36415; 80051; 82565; 82570; 84156; 84520

== ENCOUNTER 2024-02-27 16:02 | Outpatient (AMB) | payer OTHER, SELFPAY ==
[2024-02-27 16:02] VITALS: BP 110/66; PULSE 86; O2SAT 97; BMI 36.0
--- NOTE | 2024-02-27 16:02 | HO.NEPHOV ---
Vital Signs 02/27/24 16:02 Height 5 ft 7 in Weight 230 lb BMI 36.0 BP 110/66 Blood Pressure Location Lt brachial Position Sitting Pulse 86 Pulse Source Pulse Oximeter Pulse Oximetry (%) 97 Oxygen Delivery Method Room Air Intake Visit Reasons: CKD-Conf Wash Oil Pump Operator Required: No Accompanied by: Spouse Allergies NSAIDS (Non-Steroidal Anti-Inflamma Allergy (Severe, Verified 02/27/24 16:06) other hazelnut Allergy (Verified 02/27/24 16:06) Unknown HPI Comments Details: Braden was seen in follow-up of his chronic kidney disease, proteinuria on a backdrop of biopsy-proven primary FSGS in the past. He had a renal biopsy which showed FSGS and diabetic nephropathy. His blood sugars are still running high but better. He has lost weight on Ozempic. He is tolerating Jardiance well. He was on sparsentan which has been changed to Irbesartan. His blood pressure has been at goal. He has no edema. He has not had any recent medication changes. [facility] Medical History (Updated 02/26/23 @ 16:48 by Gato Ávlarez MD) Hypertension FSGS (focal segmental glomerulosclerosis) with nephrosis Chronic kidney disease, stage 3a Proteinuria Surgical History History of tonsillectomy and adenoidectomy History of prostate surgery History of back surgery Social History Alcohol intake: never Patient Tobacco Use Status: Former Tobacco user Review of Systems Const All systems reviewed & are unremarkable except as noted in HPI and below Physical Exam Const General: comfortable and no acute distress Orientation/consciousness: patient oriented x3 HEENT Head: Yes normocephalic Mouth: Normal oral and palatal mucosa present Eyes EOM: EOMs intact bilaterally Neck Neck: Yes supple Resp Auscultation: clear to auscultation bilaterally Cardio Jugular venous distension: no JVD Rate: regular rate GI Palpation (GI): Soft to palpation Auscultation: normal bowel sounds Skin General skin exam: no rashes or lesions noted Neuro General: patient oriented x3 and moves all extremities Extrem General: Yes no pedal edema Results Reviewed Nephrology Results: Hgb 12.0 g/dl (14.0-18.0) L 02/19/22 WBC 5.8 X10*3/uL (4.8-10.8) 02/19/22 Plt Count 184 X10*3/uL (160-400) 02/19/22 Sodium 139 mmol/L (135-145) 02/17/24 Potassium 4.8 mmol/L (3.3-5.1) 02/17/24 Chloride 106 mmol/L (96-108) 02/17/24 Carbon Dioxide 28 mmol/L (22-29) 02/17/24 BUN 46 mg/dL (9-16) H 02/17/24 Creatinine 2.01 mg/dL (0.5-1.4) H 02/17/24 Calcium 9.0 mg/dL (8.4-10.2) 02/19/22 Urine Creatinine 58.26 mg/dL 02/17/24 Protein/Creatinin Ratio 2.06 (<0.2) H 02/17/24 Assessment & Plan Assessment & Plan (1) Chronic kidney disease, stage 3a: Code(s): N18.31 - Chronic kidney disease, stage 3a Category: Medical (2) Proteinuria: Code(s): R80.9 - Proteinuria, unspecified Category: Medical Qualifiers: Proteinuria type: other Qualified Code(s): R80.8 - Other proteinuria (3) Hypertension: Code(s): I10 - Essential (primary) hypertension Category: Medical Qualifiers: Hypertension type: secondary to other renal disorders Qualified Code(s): I15.1 - Hypertension secondary to other renal disorders (4) FSGS (focal segmental glomerulosclerosis) with nephrosis: Code(s): N04.1 - Nephrotic syndrome with focal and segmental glomerular lesions Category: Medical Plan Braden carries a diagnosis of biopsy-proven primary FSGS. He has taken immunosuppression in the past. He has history of prostate cancer needing surgery. His blood pressure is currently at goal. He had been on sparsentan which was changed to Irbesartan( as he is not in the FSGS study anymore) . His serum creatinine is stable. He is on Jardiance. He has no retinopathy or neuropathy. He needs to lose more weight and keeps his blood sugar under better control. He avoids nonsteroidal anti-inflammatories and maintain good hydration. I reiterated the importance of blood sugar control, lifestyle modification, weight loss and importance of monitoring potassium, renal functions and urine protein. I answered all his questions. No other prescription refills done today. Follow-up labs ordered and F/U given. was present during this visit Orders: Orders Blood Urea Nitrogen 3 Months I15.1 - Hypertension secondary to other renal disorders, N04.1 - Nephrotic syndrome with focal and segmental glomerular lesions, N18.31 - Chronic kidney disease, stage 3a, R80.8 - Other proteinuria Protein Creatinine Ratio, Ur 3 Months I15.1 - Hypertension secondary to other renal disorders, N04.1 - Nephrotic syndrome with focal and segmental glomerular lesions, N18.31 - Chronic kidney disease, stage 3a, R80.8 - Other proteinuria Creatinine 3 Months I15.1 - Hypertension secondary to other renal disorders, N04.1 - Nephrotic syndrome with focal and segmental glomerular lesions, N18.31 - Chronic kidney disease, stage 3a, R80.8 - Other proteinuria Electrolytes 3 Months I15.1 - Hypertension secondary to other renal disorders, N04.1 - Nephrotic syndrome with focal and segmental glomerular lesions, N18.31 - Chronic kidney disease, stage 3a, R80.8 - Other proteinuria Coding Level of Care Code Est Pt Level 4 (78213) Diagnoses Chronic kidney disease, stage 3a N18.31 Other proteinuria R80.8 Proteinuria type: other Hypertension secondary to other renal disorders I15.1 Hypertension type: secondary to other renal disorders FSGS (focal segmental glomerulosclerosis) with nephrosis N04.1
--- OUTSIDE RECORDS SUMMARY | 2024-02-27 16:04 | XMS_ITS | Continuity of Care Document ---
Author Name [facility] Organization [facility] Care Team Providers Care Telegraph Repeater Technician Name Role Phone [facility] Unavailable Unavailable Problems Combined list of problems [...] and right foramenectomy 10/08/16 Dr. Bobby Van [facility] [place] [facility] Allergic rhinitis Active Condition Au g 2011 Entered By: CESAR ROD Comment: on allergy injections since 2010 [place] Anemia (SCT 110793655) Active Condition [place] Benign essential hypertension (SNOMED CT 4359632) Active Condition [place] Chronic kidney disease stage [address] [facility] Constipation Active Condition [facility] Cramp in lower leg Active Condition [facility] Diabetes mellitus type 2 without retinopathy (SNOMED CT 5963349943062) Active Condition Nov 26 07 Entered By: KAYDEN CHESTER Comment: ANAM done 11/23/06 [place] [facility] No DM retinopathy [place] Erectile Dysfunction (SCT 552205087) Active Condition [place] Focal glomerulonephritis (SNOMED CT 37687142) Active Condition Nov 13, 2006 Entered By: KAYDEN CHESTER Comment: focal segmental glomerulosclerosis Dr. Lenz [facility]2007 Entered By: KAYDEN CHESTER Comment: Proteinuria [place] [facility] [place] [facility] Hyperlipidemia (SNOMED CT 59442655) Active Condition [facility] Hypothyroid (SNOMED CT 49029876) Active Condition June 18, 2007 Entered By: KAYDEN CHESTER Comment: Dr. Morin [place] Insomnia Active Condition [place] ([facility]) Lumbar radiculopathy Active Condition [place] [...] 2021 on Jardiance and SPARSENTAN 400mg daily [place] Obesity (SNOMED CT 285922689) Active Condition [facility] [place] [facility] Obstructive sleep apnea syndrome Active Condition Aug 17, 2022 Entered By: Adriane OCONNELL Comment: 2022 sleep study moderate LYN, AHI 26- on CPAP [facility] [place] [facility] PROSTATE, MALIGN NEOPLASM Active Condition [place] RHINITIS DUE TO POLLEN Active Condition [facility] Screening for Malignant Neoplasms of colon Active Condition Sep 23, 2011 Entered By: CESAR ROD Comment: 06/2011 repeat 10 yrsDec 2021 Entered By: Adriane OCONNELL Comment: 12/2021 one polyp. Repeat in 5 yearsDec 2021 Entered By: Adriane OCONNELL Comment: 01-15-22 [facility] Luis Alfredo Giordano MD Sessile serrated lesion return 5 years [place] Diagnosis: ICD-10-CM Z46.0 Encounter for fit/adjst of [...] for immunization Active Diagnosis [facility] Diagnosis: ICD-10-CM L82.1 Other seborrheic keratosis Active Diagnosis DANIEL DYE [facility] Diagnosis: ICD-10-CM Z13.89 Encounter for screening for other disorder Active Diagnosis [place] Diagnosis: ICD-10-CM D48.5 Neoplasm of uncertain behavior of skin Active Diagnosis [place] Diagnosis: ICD-10-CM G47.09 Other insomnia Active Diagnosis [facility] Diagnosis: ICD-10-CM J06.9 Acute upper respiratory infection, unspecified Active Diagnosis [place] Diagnosis: ICD-10-CM R05.9 Cough, unspecified Active Diagnosis [place] Medications Combined list of outpatient medications from Department of Defense and Veterans Affairs facilities.Medications provided include 1) outpatient medications from the last 15 months, and 2) patient-reported medications. Medication Details Route Status Patient Instructions Prescription Expires Prescription Number Last Dispense Date Ordering Provider Order Date Order Qty Source ACETAMINOPH EN 325MG TAB TAKE ONE TABLET BY MOUTH PRN ORAL ACTIVE LUCINA WILSON [address] [facility] AMLODIPINE BESYLATE 5MG TAB TAKE ONE TABLET BY MOUTH ONCE DAILY FOR BLOOD PRESSURE /HEART, DO NOT TAKE WITH GRAPEFRU IT JUICE ORAL ACTIVE 05/27/2024 [id number] LEV THURMAN 2023 90 [place] AMLODIPINE BESYLATE 5MG TAB TAKE ONE TABLET BY MOUTH ONCE DAILY FOR BLOOD PRESSURE /HEART, DO NOT TAKE WITH GRAPEFRU IT JUICE ORAL DISCONT INUED 05/25/2023 [id number] LEV THURMAN 2022 90 [place] AMOXICILLIN TRIHYDRATE 500MG CAP TAKE ONE CAPSULE BY MOUTH TWICE DAILY FOR INFECTIO N CAUSED BY BACTERIA ORAL 06/29/2023 [id number] Frederic EDGE 2023 20 [place] ASPIRIN 81MG TAB,EC TAKE ONE TABLET BY MOUTH ONCE DAILY ORAL ACTIVE LUCINA WILSON 2018 [facility] ATORVASTATI N CA 80MG TAB TAKE ONE-HALF TABLET BY MOUTH ONCE DAILY FOR CHOLESTE ROL ORAL ACTIVE 08/18/2024 [id number] LEV THURMAN 2023 45 [place] ATORVASTATI N CA 80MG TAB TAKE ONE-HALF TABLET BY MOUTH ONCE DAILY FOR CHOLESTE ROL ORAL DISCONT INUED 11/19/2023 [id number] LEV THURMAN 2022 45 [place] BACLOFEN 10MG TAB TAKE ONE TABLET BY MOUTH THREE TIMES A DAY FOR MUSCLE RIGIDITY (REPLACE S CYCLOBEN ZAPRINE) ORAL ACTIVE 01/30/2025 [id number] LEV THURMAN M 2023 270 [place] BACLOFEN 10MG TAB TAKE ONE TABLET BY MOUTH THREE TIMES A DAY FOR MUSCLE RIGIDITY (REPLACE S CYCLOBEN ZAPRINE) ORAL DISCONT INUED 02/19/2024 [id number] VIJAYA DELVALLE 2023 270 [place] CARBOXYMETH YLCELLULOSE NA 0.5% SOLN,OPH INSTILL 1 DROP INTO EACH EYE FOUR TIMES A DAY FOR DRY EYE OPHTHA LMIC ACTIVE 01/13/2025 [id number] NGUYEN,LAC EY J 2023 45 [facility] [place] CARBOXYMETH YLCELLULOSE NA 0.5% SOLN,OPH INSTILL 1 DROP INTO EACH EYE FOUR TIMES A DAY FOR DRY EYE OPHTHA LMIC DISCONT INUED 01/08/2024 [id number] NGUYEN,LAC EY J 2022 45 [facility] [place] CHOLECALCIF FADI 25MCG (1,000UNIT) TAB TAKE ONE TABLET BY MOUTH ONCE DAILY FOR VITAMIN SUPPLEME NTATION ORAL ACTIVE 01/30/2025 [id number] 5 LEV THURMAN 2024 100 [place] CHOLECALCIF FADI 25MCG (1,000UNIT) TAB TAKE ONE TABLET BY MOUTH ONCE DAILY FOR VITAMIN SUPPLEME NTATION ORAL DISCONT INUED 03/06/2024 [id number] 4 LEV THURMAN 2023 100 [place] CLONAZEPAM 0.5MG TAB TAKE ONE TABLET BY MOUTH THREE TIMES DAILY NEEDED FOR PANIC DISORDER ORAL ACTIVE 07/04/2024 [id number] Mica WALLACE A 2023 90 [place] CLONAZEPAM 0.5MG TAB TAKE ONE TABLET BY MOUTH THREE TIMES A DAY ORAL DISCONT INUED 01/03/2024 [id number] LEV THURMAN 2023 90 [place] CLONAZEPAM 0.5MG TAB TAKE ONE TABLET BY MOUTH THREE TIMES A DAY ORAL DISCONT INUED 06/27/2023 [id number] MATTHEW ESQUIVEL Y 2022 90 [facility] CLONAZEPAM 0.5MG TAB TAKE ONE TABLET BY MOUTH THREE TIMES A DAY ORAL DISCONT INUED 05/02/2023 [id number] MATTHEW ESQUIVEL Y 2022 90 [facility] DEXTROMETHO RPHAN HBR 10MG/GUAIFE NESIN 100MG/5ML (AF & SF) LIQUID TAKE 10 MLS BY MOUTH EVERY 6 HOURS NEEDED FOR COUGH ORAL 06/29/2023 [id number] Frederic EDGE 2023 120 [place] EMPAGLIFLOZ IN 10MG TAB TAKE ONE TABLET BY MOUTH ONCE DAILY FOR DIABETES ORAL HOLD 08/11/2024 [id number] Puma COLEMAN 2023 90 [place] EMPAGLIFLOZ IN 10MG TAB TAKE ONE TABLET BY MOUTH ONCE DAILY FOR DIABETES ORAL DISCONT INUED 05/21/2024 [id number] LEV THURMAN 2023 90 [place] EMPAGLIFLOZ IN 10MG TAB TAKE ONE TABLET BY MOUTH ONCE DAILY FOR DIABETES ORAL DISCONT INUED 12/25/2023 [id number] 4 LEV THURMAN 2022 90 [facility] IELD EMPAGLIFLOZ IN 25MG TAB TAKE ONE TABLET BY MOUTH ONCE DAILY ORAL ACTIVE 11/26/2024 [id number] JOSE BAH 2023 90 [facility] I[place] FISH OIL 1000MG (500MG DHA/EPA) CAP,ORAL TAKE 1 CAPSULE BY MOUTH TWICE DAILY ORAL ACTIVE LEV THURMAN 2021 [facility] IELD FLUTICASONE PROPIONATE 50MCG/SPRAY SOLN,NASAL, 16GM INSTILL 1 SPRAY INTO EACH NOSTRIL ONCE DAILY FOR NASAL IRRITATI ON/INFLA MMATION NASAL ACTIVE 01/30/2025 [id number] LEV THURMAN 2023 1 [facility] IELD IRBESARTAN 300MG TAB TAKE ONE TABLET BY MOUTH ONCE DAILY FOR HIGH BLOOD PRESSURE ORAL ACTIVE 09/04/2024 [id number] LEV THURMAN 2023 90 [facility] IELD IRBESARTAN 300MG TAB TAKE ONE TABLET BY MOUTH ONCE DAILY FOR HIGH BLOOD PRESSURE ORAL DISCONT INUED 05/05/2024 [id number] LEV THURMAN 2023 90 [facility] IELD LEVOTHYROXI NE NA 100MCG TAB (SYNTHROID) TAKE TWO TABLETS BY MOUTH SUN, MON, TUE, MALCOM, FRI, and SAT AND TAKE ONE TABLET ON FOR THYROID - TAKE ON AN EMPTY STOMACH WITH A FULL GLASS OF WATER ORAL ACTIVE 10/06/2024 [id number] Mica WALLACE 2023 180 [facility] [place] LEVOTHYROXI NE NA 100MCG TAB (SYNTHROID) TAKE TWO TABLETS BY MOUTH SUN, MON, TUE, MALCOM, FRI, and SAT AND TAKE ONE TABLET ON Y FOR THYROID - TAKE ON AN EMPTY STOMACH WITH A FULL GLASS OF WATER ORAL DISCONT INUED 02/19/2024 [id number] 4 DELVALLEVIJAYA BLAIR 2023 180 [place] MAGNESIUM OXIDE 250MG TAB TAKE TWO TABLETS BY MOUTH ONCE DAILY ORAL ACTIVE Puma COLEMAN A 2022 [place] MINERAL OIL,LIGHT/P ETROLATUM (PF) OINT,OPH APPLY THIN RIBBON INTO EACH EYE AT BEDTIME FOR DRY EYE OPHTHA LMIC 01/08/2024 [id number] NGUYEN,JASVIR EY J 2022 3 [facility] [place] SEMAGLUTIDE 0.25MG/0.37 5ML INJ,SOLN,PE N,3ML INJECT 0.5MG SUBCUTAN EOUSLY ONCE A WEEK SUBCUT ANEOUS DISCONT INUED 03/06/2024 [id number] 4 LEV THURMAN 2023 1 [place] SEMAGLUTIDE 0.25MG/0.37 5ML INJ,SOLN,PE N,3ML INJECT 0.5MG SUBCUTAN EOUSLY ONCE A WEEK SUBCUT ANEOUS DISCONT INUED (EDIT) 07/31/2023 [id number] JADEN ESCOBAR 2023 1 [place] SEMAGLUTIDE 0.25MG/0.37 5ML INJ,SOLN,PE N,3ML INJECT 0.5MG SUBCUTAN EOUSLY ONCE A WEEK SUBCUT ANEOUS DISCONT INUED 10/19/2023 [id number] 3 Puma COLEMAN 2022 2 [place] SEMAGLUTIDE 1MG/0.75ML INJ,SOLN,PE N,3ML INJECT 1MG SUBCUTAN EOUSLY ONCE A WEEK FOR TYPE 2 DIABETES MELLITUS SUBCUT ANEOUS DISCONT INUED BY ERNESTO R 07/02/2024 [id number] LEV THURMAN 2023 1 [place] SEMAGLUTIDE 1MG/0.75ML INJ,SOLN,PE N,3ML INJECT 1MG SUBCUTAN EOUSLY ONCE A WEEK SUBCUT ANEOUS DISCONT INUED (EDIT) 07/31/2023 [id number] JADEN ESCOBAR 2023 1 [place] SEMAGLUTIDE 2MG/0.75ML INJ,SOLN,PE N,3ML INJECT 2MG SUBCUTAN EOUSLY ONCE A WEEK FOR TYPE 2 DIABETES MELLITUS SUBCUT ANEOUS ACTIVE 01/12/2025 [id number] LEV THURMAN 2023 2 [facility] Allergies, Adverse Reactions, Alerts Combined list of allergies from Department of Defense and Veterans Affairs facilities. It does not include entries that were removed or entered in error. Substance Category Reaction Severity Reaction type Status Date Reported Comments Source KETOROLAC TROMETHAMINE Propensity to adverse reactions to drug (finding) active 7 [facility] LOVASTATIN Propensity to adverse reactions to drug (finding) active 2 [facility] NONSTEROIDAL ANTI-INFLAMM ATORY Propensity to adverse reactions to drug (finding) Renal impairment active 8 [facility] NONSTEROIDAL ANTI-INFLAMM ATORY Propensity to adverse reactions to drug (finding) active 3 [place] [facility] SPIRONOLACTO NE Propensity to adverse reactions to drug (finding) Swelling active 9 [facility] Immunizations Combined list of available immunizations from the Department of Defense and Veterans Affairs facilities. Immunization Series Date Given Administered By Site Reaction Lot Number CVX Code Drug Transportation Attendant Status Comments Source INFLUENZA, SPLIT VIRUS, TRIVALENT, PF 2023 SANJIV AMADO LEFT DELTO ID [id number] 140 complet ed [facility] INFLUENZA, INJECTABLE, QUADRIVALENT, PRESERVATIVE FREE 2022 TAI STANTON RIGHT DELTO ID [id number] 150 complet ed [place] ZOSTER RECOMBINANT 2 2022 ANGE LEWIS LEFT ARM [id number] 187 complet ed [id number] 11/24/23 [place] COVID-19 (MODERNA), MRNA, LNP-S, BIVALENT BOOSTER, PF, 50 MCG/0.5 ML OR 25MCG/0.25 ML DOSE 1 2021 JOSE MCNALLY LEFT DELTO ID [id number] 229 complet ed [place] ZOSTER RECOMBINANT 1 2021 187 complet ed [facility] INFLUENZA, UNSPECIFIED FORMULATION 2021 88 complet ed [facility] [place] [facility] COVID-19 (PFIZER), MRNA, LNP-S, PF, 30 MCG/0.3 ML DOSE 2 2020 208 complet ed [facility] COVID-19 (PFIZER), MRNA, LNP-S, PF, 30 MCG/0.3 ML DOSE 1 2020 208 complet ed [facility] INFLUENZA, UNSPECIFIED FORMULATION 2020 88 complet ed [facility] TDAP 2020 115 complet ed [place] INFLUENZA, INJECTABLE, QUADRIVALENT, PRESERVATIVE FREE 2019 150 complet ed [place] INFLUENZA, INJECTABLE, MDCK, PRESERVATIVE FREE, QUADRIVALENT 2018 171 complet ed Partner: [facility]. Administe red by: RADHA MONROE (XHT=[phone]). Partner 2 Lot#: [id number] Mfr: SEQIRUS; Dosage: 0.5 [facility] INFLUENZA, SEASONAL, INJECTABLE 2018 141 complet ed [place] [facility] INFLUENZA, SEASONAL, INJECTABLE 2017 141 complet ed Site: Left Deltoid [place] PNEUMOCOCCAL POLYSACCHARID E [id number] 2016 33 complet ed [place] INFLUENZA, SEASONAL, INJECTABLE 2016 141 complet ed Site: Left Deltoid [place] FLU,3 YRS (HISTORICAL) 2015 88 complet ed Site: Left Deltoid [place] FLU,3 YRS (HISTORICAL) 2014 88 complet ed Site: Left Deltoid [place] HEPATITIS B VACCINE (HISTORICAL) 2014 43 complet ed 6 month, BMP [facility] [place] [facility] [facility] ZOSTER (HISTORICAL) 2013 121 complet ed [place] HEPATITIS B VACCINE (HISTORICAL) 2013 43 complet ed 1month BMP [place] [facility] [place] [facility] FLU,3 YRS (HISTORICAL) 2013 88 complet ed Site: Right Deltoid [place] HEPATITIS B VACCINE (HISTORICAL) 2013 43 complet ed BMP [facility] [place] [facility] [facility] PNEUMOCOCCAL CONJUGATE [...] IELD FLU,3 YRS (HISTORICAL) 2004 KARI JAUREGUI 88 complet ed [place] FLU,3 YRS (HISTORICAL) 2003 PATRIC YOUNG 88 complet ed [place] FLU,3 YRS (HISTORICAL) 2001 SARAH GARCIA A 88 complet ed [facility] IELD Results Combined list of recent chemistry, [...] Aug 29, 2023 09:24 AM Reporting Lab: [address] [address] Performing Lab: [address] [address] [place] PROTEIN/C REATININE RATIO PANEL, URINE PROTEIN/CRE ATININE [MASS RATIO] IN URINE 1.6 <0.2 - 0.2 08/28 Specimen Type: URINE No comment entered. Ordering Provider: ANYI PALMER Report Released Date/Time: Aug 29, 2023 09:24 AM Reporting Lab: [address] [address] Performing [facility]: [facility] [address] [place] PROTEIN/C REATININE RATIO PANEL, URINE PROTEIN [MASS/VOLUM E] IN URINE 102.7 mg/dL 0.0 - 20.0 08/28 H Specimen Type: URINE No comment entered. Ordering Provider: ANYI PALMER Report Released Date/Time: Aug 29, 2023 09:24 AM Reporting Lab: [address] [address] Performing Lab: [address] [address] [place] ELECTROLY TE PANEL SODIUM [MOLES/VOLU ME] IN SERUM OR PLASMA 141 mmol/L 135 - 145 08/28 Specimen Type: SERUM No comment entered. Ordering Provider: ANYI PALMER Report Released Date/Time: Aug 29, 2023 09:24 AM Reporting Lab: [facility] [address] [facility] [address] Performing Lab: [facility] [address] [facility] [address] [place] ELECTROLY TE PANEL POTASSIUM [MOLES/VOLU ME] IN SERUM OR PLASMA 4.9 mmol/L 3.5 - 5.0 08/28 Specimen Type: SERUM No comment entered. Ordering Provider: ANYI PALMER Report Released Date/Time: Aug 29, 2023 09:24 AM Reporting Lab: [facility] [address] [address] Performing Lab: [facility] [address] [address] [place] ELECTROLY TE PANEL CHLORIDE [MOLES/VOLU ME] IN SERUM OR PLASMA 109 mmol/L 100 - 110 08/28 Specimen Type: SERUM No comment entered. Ordering Provider: ANYI PALMER Report Released Date/Time: Aug 29, 2023 09:24 AM Reporting Lab: [facility] [address] [address] Performing Lab: [facility] [address] [place] ELECTROLY TE PANEL CARBON DIOXIDE, TOTAL [MOLES/VOLU ME] IN SERUM OR PLASMA 23 meq/L 20 - 30 08/28 Specimen Type: SERUM No comment entered. Ordering Provider: ANYI PALMER Report Released Date/Time: Aug 29, 2023 09:24 AM Reporting Lab: [facility] [address] [address] Performing Lab: [facility] [address] [place] THYROID T4 FREE(FT4) (WROX) THYROXINE (T4) FREE [MASS/VOLUM E] IN SERUM OR PLASMA 1.31 ng/dL 0.6 - 1.6 08/28 Specimen Type: SERUM No comment entered. Ordering Provider: ANYI PALMER Report Released Date/Time: Mar 06, 2023 09:49 AM Reporting Lab: [facility] [address] [facility] [address] Performing Lab: [facility] [address] [facility] [address] [place] PSA PROSTATE SPECIFIC AG [MASS/VOLUM E] IN SERUM OR PLASMA < 0.10ng /mL 0.00 - 4.00 08/28 Specimen Type: SERUM No comment entered. Ordering Provider: ANYI PALMER Report Released Date/Time: Mar 06, 2023 09:35 AM Reporting Lab: [address] [address] Performing Lab: [address] [address] [place] HEMOGLOBI N A1C PANEL HEMOGLOBIN [...] Mar 06, 2023 09:49 AM Reporting Lab: [address] [address] Performing Lab: [address] [address] [place] VITAMIN D (25-OH) 25-HYDROXYV ITAMIN D3 [MASS/VOLUM E] IN SERUM OR PLASMA 32 ng/mL 20 - 50 08/28 Specimen Type: SERUM No comment entered. Ordering Provider: ANYI PALMER Report Released Date/Time: Mar 06, 2023 09:49 AM Reporting Lab: [facility] [place] [facility] [address] [facility] [address] Performing Lab: [place] [facility] [address] [facility] [address] [place] MICROALBU MIN CREATININ E RATIO PANEL MICROALBUMI N/CREATININ E [MASS RATIO] IN URINE 1278.8 mg/g 0 - 29.9 08/28 H Specimen Type: URINE No comment entered. Ordering Provider: ANYI PALMER Report Released Date/Time: Mar 06, 2023 09:49 AM Reporting Lab: [facility] [address] [address] Performing Lab: [place] [facility] [place] [facility] [address] [facility] [address] [place] MICROALBU MIN CREATININ E RATIO PANEL MICROALBUMI N [MASS/VOLUM E] IN URINE 82.2 mg/dL 08/28 Specimen Type: URINE No comment entered. Ordering Provider: ANYI PALMER Report Released Date/Time: Mar 06, 2023 09:49 AM Reporting Lab: [place] [facility] [place] [address] [address] Performing Lab: [place] [facility] [place] [facility] [address] [facility] [address] [place] MICROALBU MIN CREATININ E RATIO PANEL CREATININE [MASS/VOLUM E] IN URINE 64.28 mg/dL 08/28 Specimen Type: URINE No comment entered. Ordering Provider: ANYI PALMER Report Released Date/Time: Mar 06, 2023 09:49 AM Reporting Lab: [place] [facility] [place] [address] [address] Performing Lab: [place] [facility] [address] [address] [place] VITAMIN B12 COBALAMIN (VITAMIN B12) [MASS/VOLUM E] IN SERUM OR PLASMA 407 pg/mL 200 - 900 08/28 Specimen Type: SERUM No comment entered. Ordering Provider: ANYI PALMER Report Released Date/Time: Mar 06, 2023 09:49 AM Reporting Lab: [facility] [place] [address] [address] Performing Lab: [place] [facility] [place] [address] [address] [place] TSH THYROTROPIN [UNITS/VOLU ME] IN SERUM OR PLASMA 1.25 u[IU]/ mL 0.35 - 5.00 08/28 Specimen Type: SERUM No comment entered. Ordering Provider: ANYI PALMER Report Released Date/Time: Mar 06, 2023 09:49 AM Reporting Lab: [facility] [place] [address] [address] Performing Lab: [facility] [place] [address] [address] [place] LIVER FUNCTION PROTEIN [MASS/VOLUM E] IN SERUM OR PLASMA 6.3 g/dL 6.0 - 8.3 08/28 Specimen Type: SERUM No comment entered. Ordering Provider: ANYI PALMER Report Released Date/Time: Mar 06, 2023 09:49 AM Reporting Lab: [facility] [place] [address] [address] Performing Lab: [facility] [place] [address] [address] [place] LIVER FUNCTION ALBUMIN [MASS/VOLUM E] IN SERUM OR PLASMA 3.7 g/dL 3.5 - 5.0 08/28 Specimen Type: SERUM No comment entered. Ordering Provider: ANYI PALMER Report Released Date/Time: Mar 06, 2023 09:49 AM Reporting Lab: [facility] [place] [address] [address] Performing Lab: [place] [facility] [place] [facility] [address] [facility] [address] [place] LIVER FUNCTION ALKALINE PHOSPHATASE [ENZYMATIC ACTIVITY/VO LUME] IN SERUM OR PLASMA 49 U/L 40 - 150 08/28 Specimen Type: SERUM No comment entered. Ordering Provider: ANYI PALMER Report Released Date/Time: Mar 06, 2023 09:49 AM Reporting Lab: [facility] [place] [facility] [address] [facility] [address] Performing Lab: [place] [facility] [address] [place] LIVER FUNCTION ASPARTATE AMINOTRANSF ERASE [ENZYMATIC ACTIVITY/VO LUME] IN SERUM OR PLASMA 13 U/L 5 - 34 08/28 Specimen Type: SERUM No comment entered. Ordering Provider: ANYI PALMER Report Released Date/Time: Mar 06, 2023 09:49 AM Reporting Lab: [facility] [place] [address] [address] Performing Lab: [facility] [place] [address] [address] [place] LIVER FUNCTION ALANINE AMINOTRANSF ERASE [ENZYMATIC ACTIVITY/VO LUME] IN SERUM OR PLASMA 32 U/L 08/28 Specimen Type: SERUM No comment entered. Ordering Provider: ANYI PALMER Report Released Date/Time: Mar 06, 2023 09:49 AM Reporting Lab: [place] [facility] [place] [address] [address] Performing Lab: [facility] [address] [address] [place] LIVER FUNCTION BILIRUBIN.T OTAL [MASS/VOLUM E] IN SERUM OR PLASMA 0.3 mg/dL 0.2 - 1.2 08/28 Specimen Type: SERUM No comment entered. Ordering Provider: ANYI PALMER Report Released Date/Time: Mar 06, 2023 09:49 AM Reporting Lab: [facility] [place] [facility] [address] [facility] [address] Performing Lab: [facility] [place] [facility] [address] [facility] [address] [place] Vital Signs Combined list of inpatient and outpatient Vital Signs from Department of Defense and Veterans Affairs, ranging from 12 months to all on record, depending upon the facility. Vital Sign Value Date Comments Source SYSTOLIC BLOOD PRESSURE 120 09/04/19 24 13:35:58 [place] DIASTOLIC BLOOD PRESSURE 74 024 13:35:58 [place] PULSE OXIMETRY 98 09/04/2023 13:35:58 [place] WEIGHT 231.2 09/04/2023 13:35:58 [place] BMI 36kg/m2 09/04/2023 13:35:58 [place] TEMPERATURE 96.4 09/04/2023 13:35:58 [place] PULSE 64 09/04/2023 13:35:58 [place] WEIGHT 232.2 06/24/2023 15:10:18 [facility] [place] [facility] BMI 36kg/m2 06/24/2023 15:10:18 [facility] [place] [facility] SYSTOLIC BLOOD PRESSURE 118 05/30/19 08:33:01 [place] DIASTOLIC BLOOD PRESSURE 68 024 08:33:01 [place] PULSE OXIMETRY 96 05/30/2023 08:33:01 [place] PAIN 0 05/30/2023 08:33:01 [place] TEMPERATURE 97.3 05/30/2023 08:33:01 [place] PULSE 75 05/30/2023 08:33:01 [place] RESPIRATION 18 05/30/2023 08:33:01 [place] SYSTOLIC BLOOD PRESSURE 132 03/06/19 24 09:03:34 [place] DIASTOLIC BLOOD PRESSURE 75 024 09:03:34 [place] PULSE OXIMETRY 97% 03/06/2023 09:03:34 [place] WEIGHT 237 03/06/2023 09:03:34 [place] BMI 37kg/m2 03/06/2023 09:03:34 [place] TEMPERATURE 96.9 03/06/2023 09:03:34 [place] PULSE 66 03/06/2023 09:03:34 [place] Encounters Combined list of: 1) Encounters from 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 2) Encounters from the Department of Defense facilities going back up to 280 months. Location Location Details Encounter Type Encounter Number Reason For Visit Attending Provider ADM Date DC Date Status Disposition Source [facility] Outpatient Encounter [id number] 08/27 [facility] Outpatient Encounter [id number] 08/27 [facility] [place] Outpatient Encounter [id number] 08/28 [facility] MTMS BY PHARM ADDL 15 MIN [id number] Diagnos is: ICD-10- CM E11.9 Type 2 diabete s mellitu s without complic ations< br/> ALYSSA COLEMAN A 10/18 [place] [facility] Outpatient Encounter [id number] EARLE ESQUIVEL IECristian Y 10/30 [facility] Outpatient Encounter [id number] 11/06 [facility] Outpatient Encounter [id number] 11/07 [facility] Outpatient Encounter [id number] 11/15 [facility] Outpatient Encounter [id number] 11/18 [facility] Outpatient [facility]counter [id number] 11/29 [facility] Outpatient Encounter [id number] 11/29 [facility] MTMS BY PHARM ADDL 15 MIN [id number] Diagnos is: ICD-10- CM E11.9 Type 2 diabete s mellitu s without complic ations< br/> ALYSSA COLEMAN ELVIRA A 11/29 [place] [facility] Outpatient Encounter [id number] 12/03 [facility] EST [facility]E X REQ PHY/QHP [id number] Diagnos is: ICD-10- CM Z23 Encount er for immuniz ation<b r/> JETT STANTON R 12/04 [place] [facility] Outpatient Encounter [id number] 12/24 [facility] Outpatient [facility]counter [id number] 12/24 [facility] EYE EXAM&TX ESTAB PT 1/>VST [id number] Diagnos is: ICD-10- CM E11.9 Type 2 diabete s mellitu s without complic ations< br/> WENDY,LACKendall Y J 01/07 [facility] FIT SPECTACLES MULTIFOCAL [id number] Diagnos is: ICD-10- CM Z46.0 Encount er for fit/adj st of spectac les and contact lenses< br/> NGUYEN,LACE Y J 01/07 [facility] REPAIR & ADJUST SPECTACLES [id number] Diagnos is: ICD-10- CM Z46.0 Encount er for fit/adj st of spectac les and contact lenses< br/> CARISSA BLAND 01/31 [facility] Outpatient Encounter [id number] 02/03 [facility] Outpatient Encounter [id number] 02/18 [facility] Out[facility] Encounter [id number] 02/18 [facility] Outpatient Encounter [id number] 02/18 [facility] Outpatient Encounter [id number] 02/18 [facility] Outpatient Encounter [id number] 02/18 [facility] Outpatient Encounter [id number] 02/18 [facility] COLLJ & INTERPJ DATA EA 30 D [id number] Diagnos is: ICD-10- CM G47.30 Sleep apnea, unspeci fied
KEYON MCNALLY 02/19 [facility] Outpatient Encounter [id number] YOGIROBINStephanie COURTNEYJUAN RIZVI M 02/24 [facility] Outpatient Encounter [id number] 02/27 [facility] Outpatient Encounter [id number] 03/06 [facility] OFFICE O/P EST HI 40 MIN [id number] Diagnos is: ICD-10- CM G47.30 Sleep apnea, unspeci fied
FER VALDEZJUAN RIZVI 03/06 [place] [facility] Outpatient Encounter [id number] 03/07 [facility] OFF/OP EST JUNE X REQ PHY/QHP [id number] Diagnos is: ICD-10- CM G47.09 Other insomni a
MANOLO,W ZOE 03/11 [place] [facility] Outpatient Encounter [id number] 03/13 [facility] CASE MANAGEMENT [id number] Diagnos is: ICD-10- CM G47.09 Other insomni a
MANOLO,W ZOE 03/19 [place] [facility] Outpatient Encounter [id number] FER VILLEGASJUAN 03/20 [facility] Outpatient Encounter [id number] 03/25 [facility] Outpatient Encounter [id number] 03/31 [facility] Outpatient Encounter [id number] 04/17 [facility] Outpatient Encounter [id number] 04/17 [facility] Outpatient Encounter [id number] 04/21 [facility] Outpatient Encounter [id number] 05/11 [facility] Outpatient Encounter [id number] 05/18 [facility] Outpatient Encounter [id number] Gaby ROSSI 05/19 [facility] Outpatient Encounter [id number] 05/26 [facility] Outpatient Encounter [id number] 05/26 [facility] Outpatient Encounter [id number] MCKENZIE MCCOY 05/28 [facility] Outpatient Encounter [id number] 05/28 [facility] Outpatient Encounter [id number] 05/29 [facility] [place] OFF/OP EST MAY X REQ PHY/QHP [id number] Diagnos is: ICD-10- CM R05.9 Cough, unspeci fied
JOSE,ER IC K 05/29 [place] [facility] Outpatient Encounter [id number] ZACARIAS EDGE C 05/29 [facility] [place] O/P EST LOW 20 MIN [id number] Diagnos is: ICD-10- CM J06.9 Acute upper respira tory infecti on, unspeci fied
ZACARIAS EDGE C 05/29 [place] [facility] Outpatient Encounter [id number] 06/03 [facility] Outpatient Encounter [id number] 06/15 [facility] Outpatient Encounter [id number] 06/18 [facility] Outpatient Encounter [id number] 06/25 [facility] Outpatient Encounter [id number] 06/29 [facility] Outpatient [facility]counter [id number] 06/30 [facility] Outpatient Encounter [id number] 06/30 [facility] Outpatient Encounter [id number] 07/09 [facility] Outpatient Encounter [id number] 07/10 [facility] Outpatient Encounter [id number] 07/17 [facility] [place] MTMS BY PHARM ADDL 15 MIN [id number] Diagnos is: ICD-10- CM E11.9 Type 2 diabete s mellitu s without complic ations< br/> ALYSSA COLEMAN 08/07 [place] [facility] Outpatient Encounter [id number] 08/12 [facility] Outpatient Encounter [id number] MITCH VANCE 08/17 [facility] Out[facility] Encounter [id number] 08/17 [facility] QNHP OL DIG ASSMT&MGMT 5-10 [id number] Diagnos is: ICD-10- CM G47.09 Other insomni a
TIFFANY CHUNG 08/17 [facility] Out[facility] Encounter [id number] 09/02 [facility] Outpatient Encounter [id number] 09/02 [facility] Outpatient Encounter [id number] 09/03 [facility] OFFICE O/P EST MOD 30 MIN [id number] Diagnos is: ICD-10- CM D48.5 Neoplas m of uncerta in behavio r of skin
FER VILLEGASOG ELIZABETH M 09/03 [place] [facility] Outpatient Encounter [id number] 1.09/28 [facility] UNLISTED SPEC DERM SVC/PX [id number] Diagnos is: ICD-10- CM Z13.89 Encount er for screeni ng for other disorde r
Adriane RUANO 09/28 [place] [facility] Outpatient Encounter [id number] 1.09/29 [facility] Outpatient Encounter [id number] Diagnos is: ICD-10- CM L82.1 Other seborrh eic keratos is
HALEY GRAJEDA PH J 09/29 [facility] Outpatient Encounter [id number]/29 [facility] Outpatient Encounter [id number] 09/30 [facility] Outpatient Encounter [id number] 10/14 [facility] [place]UNIZAT[place] ADMIN [id number] Diagnos is: ICD-10- CM Z23 Encount er for immuniz ation<b r/> SUBHA LI EZIO 10/30 [facility] Outpatient Encounter [id number] 11/04 [facility] Outpatient [facility]counter [id number] 11[facility]10 [facility] Outpatient Encounter [id number] 11/18 [facility] Outpatient Encounter [id number] 11/19 [facility] Outpatient Encounter [id number] 11/24 [facility] OFFICE O/P EST MOD 30 MIN [id number] Diagnos is: ICD-10- CM L72.3 Sebaceo us cyst
CORTEZYING Antunez WINDOWS SOFTWARE DEVELOPER 11/25 [facility] Out[facility] Encounter [id number] 11/27 [facility] Outpatient Encounter [id number] 12/03 [facility] Outpatient [facility]counter [id number] 12/03 [facility] Outpatient Encounter [id number] 12/04 [facility] COLLJ & INTERPJ DATA EA 30 D [id number] Diagnos is: ICD-10- CM G47.30 Sleep apnea, unspeci fied
KEYON MCNALLY 12/21 [facility] Out[facility] Encounter [id number] 12/21 [facility] Outpatient Encounter [id number] 12/24 [facility] Outpatient Encounter [id number] 12/28 [facility] Outpatient Encounter [id number] 12[facility]29 [facility] Outpatient [facility]counter [id number] 12/30 [facility] Outpatient Encounter [id number] 12/30 [facility] Outpatient [facility]counter [id number] 12/30 [facility] Outpatient Encounter [id number] 12/31 [facility] Outpatient Encounter [id number] 01/01 [facility] Outpatient Encounter [id number] 01/06 [facility] Outpatient Encounter [id number] 01/07 [facility] Outpatient [facility]counter [id number] 01[facility]07 [facility] Outpatient Encounter [id number] 01/07 [facility] COMPRE OPH EXAM EST PT 1/> [id number] Diagnos is: ICD-10- CM E11.9 Type 2 diabete s mellitu s without complic ations< br/> FERNANDO NGUYEN Y Glen 01/12 [facility] FIT SPECTACLES MONOFOCAL [id number] Diagnos is: ICD-10- CM Z46.0 Encount er for fit/adj st of spectac les and contact lenses< br/> FERNANDO NGUYEN Y J 01/12 [facility] Outpatient Encounter [id number] 01/12 [facility] Outpatient Encounter [id number] 01/25 [facility] Outpatient Encounter [id number] 01[facility]25 [facility] Outpatient Encounter [id number] 01/27 [facility] Outpatient Encounter [id number] STEVEN ANDERSON 02/09 [facility] Outpatient [facility]counter [id number] 02/18 [facility] RPR&REFITG SPECT XCP APHAKIA [id number] Diagnos is: ICD-10- CM Z46.0 Encount er for fit/adj st of spectac les and contact lenses< br/> Maci NEIL 02/19 [facility] Social History Combined list of available smoking, tobacco, and other social history from Department of Defense and Veterans Affairs facilities. Social History Type Response Date Comment Source Tobacco smoking status [facility] VA-TOBACCO FORMER USER 02/18/2023 [facility] History of tobacco use VA-TOBACCO QUIT 15 YRS OR MORE 02/18/2023 [facility] History of tobacco use VA-TOBACCO FORMER USER 12/31/2021 [facility] History of tobacco use VA-TOBACCO FORMER USER 01/08/2021 [place] History of tobacco use VA-TOBACCO QUIT 15 YRS OR MORE 06/10/2019 [place] History of tobacco use VA-TOBACCO QUIT 15 YRS OR MORE 12/04/2017 [place] History of tobacco use QUIT TOBACCO USE > 7 YEARS AGO 05/19/2017 [place] History of tobacco use QUIT TOBACCO USE > 7 YEARS AGO 05/15/2016 reports quitting 27 years ago [place] History of tobacco use QUIT TOBACCO USE > 7 YEARS AGO 03/21/2015 quit 04/11/1989, smoker 3 ppd x 10 yrs [place] History of tobacco use HISTORY OF SMOKING 10/20/2003 stopped tobacco 14 years ago [place] History of tobacco use HISTORY OF SMOKING 09/14/2002 quit 13 years ago [place] History of tobacco use QUIT TOBACCO USE > 7 YEARS AGO 11/25/2001 quit [place] History of tobacco use HISTORY OF SMOKING 09/15/2001 quit 12 years ago 04/11/1989 [place] Plan of Care List of future care activities from [facility] facilities. Additional future care activities may be listed in the Assessment and Plan section. Date/Time Care Activity Care Activity Detail Facili 02/27/2024 AMBULATORY - MEDICINE [facility]ULATORY - [facility] 03/04/2024 AMBULATORY - MEDICINE [facility]ATORY - [facility] 03/15/2024 AMBULATORY - MEDICINE [facility]ATORY - [facility] 02/16/2024 Consult Order PAIN CLINIC/[facility] OUTPT Cons Manager Inventory Control's Choice [place] 02/24/2024 Consult Order COMMUNITY CARE-N EPHROLOGY Cons Manager Inventory Control's Choice [place] 03/17/2024 Laboratory - Early Childhood Associate Teacher ry Order BASIC METABOLIC PANEL (fasting) BLOOD (SST-SERUM) [facility] 03/17/2024 Laboratory - Early Childhood Associate Teacher ry Order CBC AND DIFF (AUTO) BLOOD (LAV-BLOOD) [facility] 03/17/2024 Laboratory - Early Childhood Associate Teacher ry Order LIPID PANEL FASTING BLOOD (SST-SERUM) [facility] 03/17/2024 Laboratory - Early Childhood Associate Teacher ry Order HEMOGLOBIN A1C PANEL BLOOD (LAV-BLOOD) [facility] 03/17/2024 Laboratory - Early Childhood Associate Teacher ry Order LIVER FUNCTION BLOOD (SST-SERUM) [facility] 03/17/2024 Laboratory - Early Childhood Associate Teacher ry Order TSH BLOOD (SST-SERUM) [facility] 03/17/2024 Laboratory - Early Childhood Associate Teacher ry Order MICROALBUMIN CREATININE RATIO PANEL URINE (RANDOM) [facility] Advance Directives List of completed, amended, or rescinded Advance Directives on record at [facility] facilities. An actual copy of the Directive is not included. Date Advance Directive Provider Source 07/02/2022 AD[facility]ANCE [facility] 08/07/2021 ADVANCE DIRECTIVE RADHA SAHA 11/28/2020 ADVANCE DIRECTIVE GOLDIE DUTTALD
--- OUTSIDE RECORDS SUMMARY | 2024-02-27 16:08 | XMS_ITS | Continuity of Care Document ---
Author Organization [facility] Address [address] [place] [address]- Care Team Providers Care Attending Psychiatrist Name Role Phone Ben Newell MD, Dylan Ferro Primary Care Physician Encounter [facility] Date(s): 01/27/24 - 02/26/24 [facility] [address], [address] [place] [address]- Encounter Type: Triage Allergies, Adverse Reactions, Alerts [...] toxoids (Td) 8 04/15/02 Given 1Location History: [facility] 2Admin Note: vna 3Result Comment: [11/16/2014] [place] 4[place] 5Admin Note[place] [facility] [place] [facility] [place] [facility] 6[place] 7Admin Note: rcvd elsewhere 8Admin Note: historical [...] 11 Refills, Maintenance, 07/15/14 10:43:18 AM EDT, [facility]/pharmacy #[id number], 2 sprays Nasal Daily,x30 days [...] Care Team Personnel Name: Tanna Almaraz Position: [facility] Nurse Member Role: Lifetime Consulting Physician Name: Ben Newell MD, Dylan Ferro Position: Reference Physician Member Role: PCP Address: [address] [place] [address] Telecom: Care Team Related Persons Name: YVES SMILEY Insurance Providers Guarantor name: NA Health Plan Information #: 1 Payer: NAKITA MENDOZA Member Number: NA Policy Number: NA Group Number: NA
--- OUTSIDE RECORDS SUMMARY | 2024-02-27 16:08 | XMS_ITS | Encounter Summary ---
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 Organization [place] Address [address] [place] [address] Care Team Providers Care Senior Report Developer Name Role Phone LEV OCONNELL Primary [...] PREFERRED PROVIDER ORGANIZAT ION (PPO) FED EMPLO [facility] Jan 26, 2020 [id number] ELIZABETH SMILEY JR PATIENT [employer]ETNA PREFERRED PROVIDER ORGANIZAT ION (PPO) DWAYNE AL EMPLO [facility] Feb 25, 2016 [id number] [phone] ELIZABETH SMILEY JR PATIENT AETNA PREFERRED PROVIDER ORGANIZAT ION (PPO) DWAYNE AL EMPL [facility] Feb 25, 2016 [id number] ELIZABETH SMILEY JR PATIENT AETNA PREFERRED PROVIDER ORGANIZAT ION (PPO) DWAYNE AL EMPL [facility] Feb 25, 2016 [id number] ELIZABETH SMILEY PATIENT AETNA PREFERRED PROVIDER ORGANIZAT ION (PPO) DWAYNE AL MIO MIMI COOLEY Feb 24, 2016 [id number] ELIZABETH SMILEY PATIENT AETNA PHARMACY MANAGEMENT PRESCRIPT ION DWAYNE AL EMPLO MIMI Jan 26, 2020 [id number] ELIZABETH SMILEY JR PATIENT AETNA PHARMACY MANAGEMENT PRESCRIPT ION DAIANA Feb 25, 2016 [id number] ELIZABETH SMILEY PATIENT AETNA PHARMACY MANAGEMENT PRESCRIPT ION DWAYNE AL EMPLO MIMI Feb 25, 2016 [id number] ELIZABETH SMILEY PATIENT AETNA RX PRESCRIPT ION DWAYNE AL EMPLO MMII Feb 25, 2016 [id number] ELIZABETH SMILEY PATIENT AETNA RX PRESCRIPT I[facility] Feb 25, 2016 [id number] ELIZABETH BELCHER PATIENT CIGNA POINT OF SERVICE TYCO Mar 20, 2002 [id number] ELIZABETH SMILEY PATIENT CIGNA* POINT OF SERVICE Mar 20, 2002 [id number] ELIZABETH SMLIEY PATIENT Selected Encounter This section includes the information on record at [place] for the Encounter. Date/Time Encounter Type Encounter Description Reason Pro vider Source Feb 19, 2024 09:57 AM Outpatient Encounter COMMUNITY CARE CONSULT IHE [...] Date/Time Appointment Type Appointme nt Facility Name Feb 20, 2024 01:00 PM AMBULATORY [place] MEDICINE [place] [facility] Feb 27, 2024 04:00 PM AM[place]ULATORY [place]ICINE [place] [facility] Mar 04, 2024 10:15 AM AMBULATORY - MEDICINE [place] [facility] Mar 15, 2024 02:00 PM AMBULATORY [...] of theEncounter. The data comes from all [place] treatment facilities. Test Date/Time Test Type Test Details Facility Name Jan 10, 2024 10:02 PM Consult Order COMMUNITY [facility]UROLOG[facility] Cons Painter Assistant's [facility] Feb 16, 2024 03:57 PM Consult Order PAIN CLINI C/NHM OUTPT Cons Painter Assistant[facility] Feb 24, 2024 07:33 AM Consult Order COMMUNITY [facility]PH[facility] Painter Assistant's [facility] Mar 17, 2024 12:00 AM Laboratory - Chemi stry Order BASIC METABOLIC PANEL (fasting) BLOOD (SST-SERUM) [facility] Mar 17, 2024 12:00 AM Laboratory - Chemi stry Order CBC AND DIFF (AUTO) BLOOD (LAV-BLOOD) [facility] Mar 17, 2024 12:00 AM Laboratory - Chemi stry Order LIPID PANEL FASTING BLOOD (SST-SERUM) [facility] Mar 17, 2024 12:00 AM Laboratory - Chemi stry Order HEMOGLOBIN A1C PANEL BLOOD (LAV-BLOOD) [facility] Mar 17, 2024 12:00 AM Laboratory - Chemi stry Order LIVER FUNCTION BLOOD (SST-SERUM) [facility] Mar 17, 2024 12:00 AM Laboratory - Chemi stry Order TSH BLOOD (SST-SERUM) [facility] Mar 17, 2024 12:00 AM Laboratory - Chemi stry Order MICROALBUMIN CREATININE RATIO PANEL URINE (RANDOM) [facility] Social History: Smoking Status (Most current) and [...] 18, 2023 02:31 PM VA-TOBACCO FORMER USER [facility] Tobacco Use History This section includes a history of the smoking, or tobacco-related health factors, that were collected on or before the date of the Encounter. The data comes from the [place] facility where the Encounter took place. Date/Time Smoking Status/Tobacco Use Comment F acroger Feb 18, 2023 02:31 PM [facility]CO [facility]IT [facility]RS [facility] Dec 31, 2021 01:00 PM VA-TOBACCO [facility] Dec 31, 2021 01:00 PM [place]-TOBACCO QUIT 15 YRS OR MORE [facility] Advance Directives: All historical [...] July 02, 2022 ADVANCE DIRECTIVE [facility] Aug 07, 2021 ADVANCE DIRECTIVE RADHA SAHA [facility] Nov 28, 2020 ADVANCE DIRECTIVE GOLDIE DUTTA [facility] [place] Encounter Notes: All associated encounter notes This section contains the clinical notes associated to the Encounter. 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 Vandana Álvarez (Nephrology) [facility] [address] [address] /bienvenido/ MARISA ROWELL Signed: 02/19/2024 10:02 Receipt Acknowledged By: * AWAITING SIGNATURE * EMIL OCONNELL 02/20/2024 14:01 /bienvenido/ STEVEN DIAL RN REGISTERED NURSE 02/24/2024 10:46 /es/ DYAN MENESES 02/20/2024 ADDENDUM STATUS: COMPLETED Consult placed as requested and held for PCP signature. /bienvenido/ STEVEN DIAL RN REGISTERED NURSE Signed: 02/20/2024 14:01 MARISA ROWELL CNTRL W[facility]N [facility]
--- OUTSIDE RECORDS SUMMARY | 2024-02-27 16:08 | XMS_ITS | Encounter Summary ---
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 Organization [place] Address [address] [place] [address] Care Team Providers Care Sephora Operations Consultant Name Role Phone LEV OCONNELL Primary [...] (PPO) FED EMPLO YEES Jan 26, 2020 [id number] [phone] ELIZABETH SMILEY JR PATIENT AETNA PREFERRED PROVIDER ORGANIZAT ION (PPO) DWAYNE AL EMPL [facility] Feb 25, 2016 [id number] ELIZABETH SMILEY JR PATIENT AETNA PREFERRED PROVIDER ORGANIZAT ION (PPO) DWAYNE AL EMPL [facility] Feb 25, 2016 [id number] ELIZABETH SMILEY PATIENT AETNA PREFERRED PROVIDER ORGANIZAT ION (PPO) DWAYNE AL EMPLO YE Feb 25, 2016 [id number] ELIZABETH SMILEY JR PATIENT AETNA PREFERRED PROVIDER ORGANIZAT ION (PPO) DWAYNE SILVA Feb 24, 2016 [id number] ELIZABETH SMILEY PATIENT AETNA PHARMACY MANAGEMENT PRESCRIPT ION DWAYNE SILVA Jan 26, 2020 [id number] ELIZABETH SMILEY JR PATIENT AETNA PHARMACY MANAGEMENT PRESCRIPT ION DAIANA Feb 25, 2016 [id number] ELIZABETH SMILEY PATIENT AETNA PHARMACY MANAGEMENT PRESCRIPT ION DWAYNE AL MIO MIMI Feb 25, 2016 [id number] ELIZABETH SMLIEY PATIENT AETNA RX PRESCRIPT ION DWAYNE SILVA Feb 25, 2016 [id number] ELIZABETH SMILEY PATIENT AETNA RX PRESCRIPT ION [facility] Feb 25, 2016 [id number] ELIZABETH SMILEY JR PATIENT CIGNA POINT OF SERVICE TYCO Mar 20, 2002 [id number] ELIZABETH SMILEY PATIENT CIGNA* POINT OF SERVICE Mar 20, 2002 [id number] ELIZABETH SMILEY PATIENT Selected Encounter This section includes the information on record at [place] for the Encounter. Date/Time Encounter Type Encounter Description Reason Provider Source Feb 10, 2024 02:28 PM Outpatient Encounter PRIMARY CARE/MEDICINE ZINA DIAL Encounter Template Text not used by [place] [...] 20, 2024 01:00 PM AMBULATORY - MEDICINE [place] [facility] Feb 27, 2024 04:00 PM AMBULATORY - [place]ICINE [place] [facility] Mar 04, 2024 10:15 AM AMBULATORY - MEDICINE [place] [facility] Mar 15, 2024 02:00 PM AMBULATORY - [...] of theEncounter. The data comes from all [facility] facilities. Test Date/Time Test Type Test Details Facility Name Jan 10, 2024 10:02 PM Consult Order COMMUNITY CARE-NEUROLOGY Cons Kiln Worker's [facility] Feb 16, 2024 03:57 PM Consult Order PAIN CLINI C/NHM OUTPT Cons Kiln Worker[facility] Feb 24, 2024 07:33 AM Consult Order COMMUNITY CARE-NEPHROLOGY Cons Kiln Worker[facility] Mar 17, 2024 12:00 AM Laboratory - Chemi stry Order BASIC METABOLIC PANEL (fasting) BLOOD (SST-SERUM) [facility] Mar 17, 2024 12:00 AM Laboratory - Chemi stry Order LIPID PANEL FASTING BLOOD (SST-SERUM) [facility] Mar 17, 2024 12:00 AM Laboratory - Chemi stry Order LIVER FUNCTION BLOOD (SST-SERUM) [facility] Mar 17, 2024 12:00 AM Laboratory - Chemi stry Order CBC AND DIFF (AUTO) BLOOD (LAV-BLOOD) [facility] Mar 17, 2024 12:00 AM Laboratory - Chemi stry Order HEMOGLOBIN A1C PANEL BLOOD (LAV-BLOOD) [facility] Mar 17, 2024 12:00 AM Laboratory - Chemi stry Order TSH BLOOD (SST-SERUM) [facility] Mar 17, 2024 12:00 AM Laboratory - Chemi stry Order MICROALBUMIN CREATININE RATIO PANEL URINE (RANDOM) [facility] Social History: Smoking Status (Most current) and [...] Corina ity Feb 18, 2023 02:31 PM [place]-TOBACCO QUIT 15 YRS OR MORE [facility] Tobacco Use History This section includes a history of the smoking, or tobacco-related health factors, that were collected on or before the date of the Encounter. The data comes from the [place] facility where the Encounter took place. Date/Time Smoking Status/Tobacco Use Comment F acility Feb 18, 2023 02:31 PM [place]-TOBACCO QUIT 15 YRS OR MORE [facility] Dec 31, 2021 01:00 PM VA-TOBACCO FORMER USER [facility] Dec 31, 2021 01:00 PM [place]-TOBACCO QUIT 15 YRS OR MORE [facility] Advance Directives: All historical and [...] ADVANCE DIRECTIVE SANDRA BROOKS [facility] Aug 07, 2021 ADVANCE DIRECTIVE RADHA SAHA [facility] Nov 28, 2020 ADVANCE DIRECTIVE MARLON DUTTACY [facility] IE Encounter Notes: All associated encounter notes This section contains the clinical notes associated to the Encounter. Date/Time Encounter Note(s) Provider Source Feb 12, 2024 02:56 PM PRIMARY CARE Beatsy E MESSAGING: LOCAL TITLE: PRIMARY CARE SECURE MESSAGING STANDARD TITLE: PRIMARY CARE SECURE MESSAGING DATE OF NOTE: FEB 12, 2024@14:56 ENTRY DATE: FEB 12, 2024@14:56:24 AUTHOR: SANDRA BROOKS EXP COSIGNER: URGENCY: STATUS: COMPLETED PRIMARY CARE SECURE MESSAGING Has ADDENDA ------Original Message -------- Sent: 02/12/2024 02:49 PM ET From: ELIZABETH SMILEY To: ANISH,O_P [facility] Subject: General:Neurology Consult I would be willing to be seen by physiatry. /bienvenido/ SANDRA MENESES Signed: 02/12/2024 14:56 Receipt Acknowledged By: 02/17/2024 13:24 /bienvenido/ MAXIMO HOFFMAN LPN LPN 02/16/2024 14:24 /bienvenido/ JERAMY DIAL RN REGISTERED NURSE 02/16/2024 ADDENDUM STATUS: COMPLETED Pain management consult placed and held for PCP signature. /bashir DIAL RN REGISTERED NURSE Signed: 02/16/2024 14:20 [facility] Feb 10, 2024 02:28 PM PRIMARY CARE SECUR E MESSAGING: LOCAL TITLE: PRIMARY CARE SECURE MESSAGING STANDARD TITLE: PRIMARY CARE SECURE MESSAGING DATE OF NOTE: FEB 10, 2024@14:28 ENTRY DATE: FEB 10, 2024@14:28:48 AUTHOR: JERAMY DIAL EXP COSIGNER: URGENCY: STATUS: COMPLETED ------Original Message -------- Sent: 02/10/2024 02:28 PM ET From: JERAMY DIAL To: ELIZABETH SMILEY Subject: General:Neurology Consult Mina SMILEY, I tried to call you on the phone but could not reach you. We would like to inform you that the neurology consult we did for you was declined, and that they are recommended evaluation by physiatry. Please let us know if you are interested in the physiatry so that we can place a consult for that in [place]. We have also placed another consult to pain management per their recommendation. Thank you. Jeramy. CLYDE RN. /bashir DIAL RN REGISTERED NURSE Signed: 02/10/2024 14:28 [facility]
--- OUTSIDE RECORDS SUMMARY | 2024-02-27 16:08 | XMS_ITS ---
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 Address [address] [place] [address] Care Team Providers Care Professor Of Violin Name Role Phone LEV OCONNELL Primary Care [...] (PPO) FED EMPLO YEES Jan 26, 2020 [id number] ELIZABETH SMILEY JR PATIENT AETNA PREFERRED PROVIDER ORGANIZAT ION (PPO) DWAYNE AL EMPL [facility] Feb 25, 2016 [id number] ELIZABETH SMILEY JR PATIENT AETNA PREFERRED PROVIDER ORGANIZAT ION (PPO) DWAYNE AL EMPL [facility] Feb 25, 2016 [id number] ELIZABETH SMILEY PATIENT AETNA PREFERRED PROVIDER ORGANIZAT ION (PPO) DWAYNE AL EMPLO YE Feb 25, 2016 [id number] ELIZABETH SMILEY JR PATIENT AETNA PREFERRED PROVIDER ORGANIZAT ION (PPO) DWAYNE SILVA Feb 24, 2016 [id number] ELIZABETH SMILEY PATIENT AETNA PHARMACY MANAGEMENT PRESCRIPT ION DWAYNE SLIVA Jan 26, 2020 [id number] ELIZABETH SMILEY JR PATIENT AETNA PHARMACY MANAGEMENT PRESCRIPT ION DAIANA Feb 25, 2016 [id number] ELIZABETH SMILEY PATIENT AETNA PHARMACY MANAGEMENT PRESCRIPT ION DWAYNE PIERCE Feb 25, 2016 [id number] ELIZABETH SMILEY PATIENT AETNA RX PRESCRIPT ION DWAYNE SILVA Feb 25, 2016 [id number] ELIZABETH SMILEY PATIENT AETNA RX PRESCRIPT ION [facility] Feb 25, 2016 [id number] ELIZABETH SMILEY JR PATIENT CIGNA POINT OF SERVICE TYCO Mar 20, 2002 [id number] ELIZABETH SMILEY PATIENT CIGNA* POINT OF SERVICE Mar 20, 2002 [id number] ELIZABETH SMILEY PATIENT Selected Encounter This section includes the information on record at [place] for the Encounter. Date/Time Encounter Type Encounter Description Reason Pro vider Source Dec 29, 2023 12:00 AM Outpatient Encounter COMMUNITY CARE [...] - MEDICINE [place] [facility] Feb 20, 2024 01:00 PM AMBULATORY - MEDICINE [place] [facility] Feb 27, 2024 04:00 PM AMBULATORY - MEDICINE [place] [facility] Mar 04, 2024 10:15 AM AMBULATORY - MEDICINE [place] [facility] Mar 15, 2024 02:00 PM AMBULATORY - [...] of theEncounter. The data comes from all [place] treatment facilities. Test Date/Time Test Type Test Details Facility Name Jan 10, 2024 10:02 PM Consult Order [facility]-NEUROLOG[facility] Manager Product Support's [facility] Social History: Smoking Status (Most current) [...] PM VA-TOBACCO QUIT 15 YRS OR MORE [facility] Tobacco Use History This section includes a history of the smoking, or tobacco-related health factors, that were collected on or before the date of the Encounter. The data comes from the [place] facility where the Encounter took place. Date/Time Smoking Status/Tobacco Use Comment F acility Feb 18, 2023 02:31 PM VA-TOBACCO QUIT 15 YRS OR MORE [place] [facility] Dec 31, 2021 01:00 PM VA-TOBACCO FORMER USER [place] [facility] Dec 31, 2021 01:00 PM VA-TOBACCO QUIT 15 YRS OR MORE [facility] Advance Directives: All historical and current [...] Nov 28, 2020 ADVANCE DIRECTIVE [facility]OLDIE DUTTA [facility] Encounter Notes: All associated encounter notes This section contains the clinical notes associated to the Encounter. Date/Time Encounter Note(s) Provider Source Dec 29, 2023 12:00 AM NONVA CONSULT: LOCAL TITLE: COMMUNITY CARE-CONSULT RESULT NOTE STANDARD TITLE: NONVA CONSULT DATE OF NOTE: DEC 29, 2023 ENTRY DATE: JAN 29, 2024@14:25:46 AUTHOR: JULIANE AL COSIGNER: URGENCY: STATUS: COMPLETED VistA Imaging - Scanned Document SCANNED DOCUMENT SIGNATURE NOT REQUIRED Electronically Filed: 01/29/2024 by: JULIANE AL MANAGER ELECTRONIC JULIANE AL [place] [facility]
--- OUTSIDE RECORDS SUMMARY | 2024-02-27 16:08 | XMS_ITS | Encounter Summary ---
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 Organization [place] Address [address] [place] [address] Care Team Providers Care Automotive Technician Instructor Name Role Phone LEV OCONNELL Primary Care [...] (PPO) FED EMPLO YE Jan 26, 2020 [id number] ELIZABETH SMILEY JR PATIENT AETNA PREFERRED PROVIDER ORGANIZAT ION (PPO) DWAYNE AL EMPLO YE Feb 25, 2016 [id number] ELIZABETH SMILEY JR PATIENT AETNA PREFERRED PROVIDER ORGANIZAT ION (PPO) DWAYNE AL EMPL [facility] Feb 25, 2016 [id number] [phone] ELIZABETH SMILEY JR PATIENT AETNA PREFERRED PROVIDER ORGANIZAT ION (PPO) DWAYNE AL EMPL [facility] Feb 25, 2016 [id number] ELIZABETH SMILEY PATIENT AETNA PREFERRED PROVIDER ORGANIZAT ION (PPO) DWAYNE AL EMPLO MIMI COOLEY Feb 24, 2016 [id number] ELIZABETH SMILEY PATIENT AETNA PHARMACY MANAGEMENT PRESCRIPT ION DWAYNE AL EMPLO MIMI COOLEY Jan 26, 2020 [id number] ELIZABETH SMILEY JR PATIENT AETNA PHARMACY MANAGEMENT PRESCRIPT ION [facility] Feb 25, 2016 [id number] ELIZABETH SMILEY PATIENT AETNA PHARMACY MANAGEMENT PRESCRIPT ION DWAYNE AL EMPLO MIMI Feb 25, 2016 [id number] ELIZABETH SMIELY PATIENT AETNA RX PRESCRIPT ION DWAYNE AL EMPLO MIMI [place]OO[facility] Feb 25, 2016 [id number] ELIZABETH SMILEY PATIENT AETNA RX PRESCRIPT ION FE[facility] Feb 25, 2016 [id number] ELIZABETH SMILEY JR PATIENT CIGNA POINT OF SERVICE TYCO Mar 20, 2002 [id number] ELIZABETH SMILEY PATIENT CIGNA* POINT OF SERVICE Mar 20, 2002 [id number] ELIZABETH SMILEY PATIENT Selected Encounter This section includes the information on record at [place] for the Encounter. Date/Time Encounter Type Encounter Description Reason Provider Source Feb 20, 2024 01:00 PM RPR&REFITG SPECT XCP APHAKIA OPTOMETRY ICD-10-CM Z46.0 Encounter for fit/adjst of spectacles and contact lenses [facility]MER NEIL [facility] Encounter Template Text not used by [place] Assessments - Encounter Diagnoses This section includes the primary and secondary diagnoses documented for the Encounter. Date/Time Primary/Secondary Diagnosis Diagnosis Name Provider Source Feb 20, 2024 01:22 PM PRIMARY Encounter for fit/adjst of spectacles and contact lenses [place]IL [place] [facility]L [facility] Plan of Treatment: Future Appointments (+ 6 months) and Future Tests (+/- 45 days) The Plan of Treatment section includes future care activities for the patient from all [place] [facility]. This section includes future appointments and future orders which are active, pending or scheduled. Future Appointments This section includes appointments that were scheduled to occur 6 months from the date of the Encounter, up to a maximum of 20 appointments. The data comes from all [facility]. Appointment Date/Time Appointment Type Appointme nt Facility Name Feb 27, 2024 04:00 PM AMBULATORY - MEDICINE [facility] Mar 04, 2024 10:15 AM AMBULATORY - MEDICINE [facility] Mar 15, 2024 02:00 PM AMBULATORY - MEDICINE [facility] Active, Pending, and Scheduled Orders This section includes a listing of several types of active, pending, and scheduled orders, including clinic medications orders, diagnostic test orders, procedure orders and consult orders; where the start date of the order is 45 days before the date of the Encounter or 45 days after the date of theEncounter. The data comes from all [facility]. Test Date/Time Test Type Test Details Facility Name Jan 10, 2024 10:02 PM Consult Order COMMUNITY CARE-NEUROLOGY Cons Carpenter [employer] Feb 16, 2024 03:57 PM Consult Order PAIN CLINI C/NHM OUTPT Cons Carpenter [employer] Feb 24, 2024 07:33 AM Consult Order COMMUNITY [facility] Cons Carpenter [employer] Mar 17, 2024 12:00 AM Laboratory - Chemi stry Order BASIC METABOLIC PANEL (fasting) BLOOD (SST-SERUM) [facility] Mar 17, 2024 12:00 AM Laboratory - Chemi stry Order CBC AND DIFF (AUTO) BLOOD (LAV-BLOOD) [facility] Mar 17, 2024 12:00 AM Laboratory - Chemi stry Order LIPID PANEL FASTING BLOOD (SST-SERUM) [facility] Mar 17, 2024 12:00 AM Laboratory - Chemi stry Order HEMOGLOBIN A1C PANEL BLOOD (LAV-BLOOD) [facility] Mar 17, 2024 12:00 AM Laboratory - Chemi stry Order LIVER FUNCTION BLOOD (SST-SERUM) [facility] Mar 17, 2024 12:00 AM Laboratory - Chemi stry Order TSH BLOOD (SST-SERUM) [facility] Mar 17, 2024 12:00 AM Laboratory - Chemi stry Order MICROALBUMIN CREATININE RATIO PANEL URINE (RANDOM) [facility] Social History: Smoking Status (Most current) and [...] 18, 2023 02:31 PM VA-TOBACCO FORMER USER [facility] Tobacco Use History This section includes a history of the smoking, or tobacco-related health factors, that were collected on or before the date of the Encounter. The data comes from the [place] facility where the Encounter took place. Date/Time Smoking Status/Tobacco Use Comment F acility Feb 18, 2023 02:31 PM VA-TOBACCO QUIT 15 YRS OR MORE [facility] Dec 31, 2021 01:00 PM VA-TOBACCO [facility] [place] [place] [facility] Dec 31, 2021 01:00 PM VA-TOBACCO QUIT 15 YRS OR MORE [facility] Advance Directives: All historical and [...] 02, 2022 ADVANCE DIRECTIVE [facility]KS [facility] Aug 07, 2021 ADVANCE DIRECTIVE RADHA SAHA [facility] Nov 28, 2020 ADVANCE DIRECTIVE GOLDIE DUTTA [facility] IE Encounter Notes: All associated encounter notes This section contains the clinical notes associated to the Encounter. Date/Time Encounter Note(s) Provider Source Feb 20, 2024 01:21 PM OPTOMETRY NOTE: LOCAL TITLE: OPTOMETRY NOTE STANDARD TITLE: OPTOMETRY NOTE DATE OF NOTE: FEB 20, 2024@13:21 ENTRY DATE: FEB 20, 2024@13:21:20 AUTHOR: JOLYNN,PALMER J EXP COSIGNER: URGENCY: STATUS: COMPLETED OPT HT fit and adjusted 3 pair(s) of eyeglasses per patient request. /bienvenido/ PALMER NEIL OPTOMETRY TECH Signed: 02/20/2024 13:22 [place]EL[place] CNTRL [facility]
--- OUTSIDE RECORDS SUMMARY | 2024-02-27 16:08 | XMS_ITS ---
Author Organization [facility] Address [address] [facility] [place] [address] Care Team Providers Care Technical Support Professional Name Role Phone Dylan Cat Primary Care Provider Unavailable Black, Cass Unavailable [phone] Allergies Allergen (clinical drug ingredient) Drug/Non Drug [...] Ordered Date Performed Result Body Sit e 33316-EQIBTXN NAIL, 1-5 12/25/2023 N/A 42768-MFVO SKIN LESIONS, 2 TO 4 12/25/2023 N/A Encounters Encounter Location Date Provider Diagnosis [facility] [address] [address] 12/25/2023 Cass Black Type 2 diabetes mellitus [...] betadine Pending Test Test Name Order Date 06546-VRRSACC NAIL, 1-5 12/25/2023 12052-MASQ SKIN LESIONS, 2 TO 4 12/25/19 24 Next Appt Details Follow Up: prn, Reason: Provider Name:Cass Lugo , 06/24/2024 02:00:00 PM, [address] [place], [address], Procedure Notes * Category Sub-Category Detail Notes [...] as necessary. Patient chooses, no pharmaceutical tx (81448) Nail Reduction Nail Reduction Trimming of dyst rophic nails performed to reduce/remove overall nail length and girth, by manual and electrical means with use of a nail nipper and/or dremel, to more viable healthy nail plate or bed tissue 6-10 (G0127) Progress Notes * Major SMILEY JrDOB: (63 yo M)Acc No.[id number]:12/25/2023 Progress Note Patient:?Major Smiley Provider:?Cass LugoLACIE :1960???Age:63 Y???Sex:Male Moisés e:12/25/2023 Address:[address] [place] [address] [facility] Pcp:Dylan villalobos Subjective: * Chief Complaints: * [...] Uncomplicated (3)? Plan: * Treatment: 2.?Tinea unguium?Procedure: 71149-BYZNSHK NAIL, 1-5 3.?Skin maceration? Start betadine.?? * Procedures:?Debride Nails 1-5:?Procedure:?Nail debridement performed extensively to reduce/remove overall nail length and girth, subungual debris, and necrotic tissue, by manual and electrical means by use of a nail nipper and/or dremel, to more viable healthy nail plate or bed tissue 1-5. Silver nitrate used for any petechial bleeding as necessary. Patient chooses, no pharmaceutical tx (78137).?Nail Reduction:?Nail Reduction?Trimming of dystrophic nails performed to reduce/remove overall nail length and girth, by manual and electrical means with use of a nail nipper and/or dremel, to more viable healthy nail plate or bed tissue 6-10 (G0127).? * Procedure Codes:?47967 DEBRI DE NAIL, 1-5, Modifiers: XS G0127 TRIMMING DYSTROPHIC NAILS ANY #, Modifiers: XS 43530 TRIM SKIN LESIONS, 2 TO 4, Modifiers: [...] Lugo DPM Date:?2023 Generated for Oumou vásquez/Damian/Ayan on:?02/27/2024 04:08 PM EST History and Physical Notes * HPI [...]
--- OUTSIDE RECORDS SUMMARY | 2024-02-27 16:09 | XMS_ITS | Patient Health Record ---
[facility] Address [address] [place] [address] Care Team Providers Care Supervisor Photoengraving Name Role Phone Dylan Cat Primary Care Provider Unavailable Black, Cass Unavailable [phone] Allergies Allergen (clinical drug ingredient) Drug/Non Drug [...] Problem Acquired hammer toe of right foot (9815960168438047 ) Other hammer toe(s) (acquired), right foot (M20.41) Active confirmed Problem Acquired hammer toe of left foot (4583534889181854 ) Other hammer toe(s) (acquired), left foot (M20.42) Active confirmed Problem Polyneuropathy due to type 2 diabetes mellitus (953182410) Type 2 diabetes mellitus with diabetic polyneuropathy (E11.42) Active confirmed Vital Signs Blood pressure diastolic 74 mm Hg 12/25/2023 Height 5ft 7in in 12/25/2023 Blood pressure systolic 116 mm Hg 12/25/2023 Weight 230 lbs 12/25/2023 BMI 36.02 kg/m2 12/25/2023 Procedures Procedure Date Ordered Date Performed Result Body Sit e 33957-EZDKEUM NAIL, 1-5 06/26/2023 N/A L4391-MGNICBSD DYSTROPHIC NAILS ANY # 06/26/2023 N/A 30177-VTAQYWW NAIL, 1-5 12/25/2023 N/A 92528-SAWL SKIN LESIONS, 2 TO 4 12/25/2023 N/A Encounters Encounter Location Date [facility] [address] 06/26/2023 Cass Lugo Type 2 diabetes mellitus with diabetic polyneuropathy E11.42 ; Tinea unguium B35.1 ; Skin maceration L98.8 and Tinea pedis B35.[address] [address] 12/25/2023 Cass Lugo Type 2 diabetes mellitus with diabetic polyneuropathy E11.42 ; Tinea pedis B35.3 ; Tinea unguium B35.1 and Skin maceration L98.[address] [address] 06/02/2023 Cass Black Assessments Encounter Date Diagnosis [...] Test Name Order Date Hemoglobin A1c 01/30/2015 67978-LCVETDU NAIL, 6 OR MORE 01/13/2012 72244-CWNVORZ NAIL, 6 OR MORE 06/29/2012 54425-YEGJAII NAIL, 6 OR MORE 12/24/2012 00977-GYUAUMO NAIL, 6 OR MORE 01/07/2011 52087-JGRBFYB NAIL, 6 OR MORE 06/24/2013 62912-ZUWTRVP NAIL, 1-5 07/08/2011 41339-INYLMJJ NAIL, 1-5 01/10/2014 81372-ZKNJTHD NAIL, 1-5 06/30/2014 65411-UJHMJJC NAIL, 1-5 01/30/2015 69806-VXFDYKD NAIL, 1-5 07/27/2015 65425-DBNYAXY NAIL, 1-5 12/25/2023 97804-AJQUMYB NAIL, 1-5 01/15/2016 30275-YFGSIMV NAIL, 1-5 08/30/2021 82681-ACPGBAY NAIL, 1-5 01/21/2022 00527-BYSMKZT NAIL, 1-5 11/07/2022 25924-YMSXBTU NAIL, 1-5 06/26/2023 95412-Akrljaov Plate 08/30/2021 55377-WSMZ SKIN LESIONS, 2 TO 4 01/15/20 16 19035-SFVG SKIN LESIONS, 2 TO 4 12/25/19 24 84575-GGGU SKIN LESIONS, 2 TO 4 01/31/20 15 41153-VQST SKIN LESIONS, 2 TO 4 07/27/19 16 60693-VEZW SKIN LESIONS, 2 TO 4 07/01/19 15 65583-GFOW SKIN LESIONS, 2 TO 4 06/25/19 14 91307-FMCD SKIN LESIONS, 2 TO 4 01/11/20 14 36673-JMAZ SKIN LESIONS, 2 TO 4 12/25/19 13 34921-MATD NAIL(S) 06/30/2014 31739-GOCY NAIL(S) 01/10/2014 92177-NSGA NAIL(S) 07/27/2015 99035-HIHO NAIL(S) 01/30/2015 02174-KOZP NAIL(S) 01/15/2016 Q9415-BTETIRNC DYSTROPHIC NAILS ANY # Next Appt Details Provider Name:Cass Lugo , 06/24/2024 02:00:00 PM, [address] [place], [address], Insurance Providers Payer Name Payer Address Payer Phone Subscriber Number Group Number Insured Name Patient Relationship to Insured Coverage Start Date Coverage End Date [employer] POS [address] [address] [place] [address] [id number] Major Tidwell Self - patient is the [...]
--- OUTSIDE RECORDS SUMMARY | 2024-02-27 16:09 | XMS_ITS ---
Author Organization [facility] Address [address] [place] [address] Care Team Providers Care Boat Loader Helper Name Role Phone Dylan Cat Primary Care Provider Unavailable Black, Cass Unavailable [phone] Allergies Allergen (clinical drug ingredient) Drug/Non Drug [...] Ordered Date Performed Result Body Sit e 60227-SCGGZLW NAIL, 1-5 06/26/2023 N/A U4813-WBGHVVFS DYSTROPHIC NAILS ANY # 06/26/2023 N/A Encounters Encounter Location Date Provider Diagnosis [facility] [address] [place] [address] 06/26/2023 Cass Black Type 2 diabetes mellitus [...] betadine Pending Test Test Name Order Date 69851-GXIHIMA NAIL, 1-5 06/26/2023 I2378-PCFWGGOU DYSTROPHIC NAILS ANY # Next Appt Details Follow Up: prn, Reason: Provider Name:Cass Lugo , 06/24/2024 02:00:00 PM, [address] [place] [address], [address], Procedure Notes * Category Sub-Category Detail Notes [...] as necessary. Patient chooses, no pharmaceutical tx (31902) Nail Reduction Nail Reduction Trimming of dyst rophic nails performed to reduce/remove overall nail length and girth, by manual and electrical means with use of a nail nipper and/or dremel, to more viable healthy nail plate or bed tissue 6-10 (G0127) Progress Notes * Major SMILEY JrDOB: (63 yo M)Acc No.[id number]:06/26/2023 Progress Note Patient:?Major Smiley Provider:?Cass Lugo DPM :1960???Age:63 Y???Sex:Male Moisés e:06/26/2023 Address:[address] [place] [address] [facility]REG[facility]LE[facility]-[address] Pcp:Dylan villalobos Subjective: * Chief Complaints: * [...] - B35.3? Plan: * Treatment: 2.?Tinea unguium?Procedure: 54691-EBIOAJV NAIL, 1-5 3.?Skin maceration? Start betadine.?? * Procedures:?Debride Nails 1-5:?Procedure:?Nail debridement performed extensively to reduce/remove overall nail length and girth, subungual debris, and necrotic tissue, by manual and electrical means by use of a nail nipper and/or dremel, to more viable healthy nail plate or bed tissue 1-5. Silver nitrate used for any petechial bleeding as necessary. Patient chooses, no pharmaceutical tx (94071).?Nail Reduction:?Nail Reduction?Trimming of dystrophic nails performed to reduce/remove overall nail length and girth, by manual and electrical means with use of a nail nipper and/or dremel, to more viable healthy nail plate or bed tissue 6-10 (G0127).? * Procedure Codes:?70352 DEBRI DE NAIL, 1-5, Modifiers: XS G0127 [...]
--- OUTSIDE RECORDS SUMMARY | 2024-02-27 16:09 | XMS_ITS ---
Author Organization [facility] Address [address] [place] [address] Care Team Providers Care Agriculture Extension Specialist Name Role Phone Dylan Cat Primary Care Provider Unavailable Cass Lugo [phone] Encounters Encounter Location Date Provider Diagnosis [address] [address] 06/05/2023 Cass Lugo Plan Of Treatment Next Appt Details Provider Name:Cass Lugo , 06/24/2024 02:00:00 PM, [address] [place] [address], [address], Progress Notes * Major SMILEY JrDOB: (64 yo M)Acc No.[id number]:06/05/2023 Progress Note Patient:?Major SMILEY Provider:?Cass Lugo DPM [...] DPM Date:?2023 Generated for Oumou vásquez/Damian/Ayan on:?02/27/2024 04:09 PM EST
--- OUTSIDE RECORDS SUMMARY | 2024-02-27 16:09 | XMS_ITS | Data Portability ---
Author Organization [facility] [address] Address [address] [place] [address] Assessment No assessment recorded. Plan of Treatment Reminders Order Date Submit Date Provider Last Modified By Organization Details Last Modified Time Details Appointments None recorded. Lab None recorded. Referral emergency medicine referral 2022 023 [email or web address] 1 Not available 3 13:40:55 Procedures None recorded. Surgeries None recorded. Imaging None recorded. Medication Orders None recorded. Patient TargetsNo targets recorded. Patient InstructionsNo instructions recorded. 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 Procedures Surgical History Date Name Laterality Status Provider Name and Address Organization Details Recorded Time 02/17/19 03 Prostatectomy (turp) completed RHIANNA RAMIREZ PA - [facility] 07/10/2022 12:38:27 procedure on back completed RHIANNA RAMIREZ PA - [facility] 07/10/2022 12:39:01 Imaging Results None recorded. Procedure Notes None recorded. Medical Equipment None Reported. Allergies Allergen ID Allergen Name Allergen Category Reaction Reaction Severity Criticality Documentation Date Start Date Code Code System Note Provider Name and Address Organization Details Recorded Time 392111 Non-stero idal anti-infl ammatory agent (product) medicatio n other Not available Not available 07/10/2022 50831 005 SNOMED RHIANNA RAMIREZ null, PA - [facility] 12:29:05 280221 hazelnut allergeni c extract food headache Not available Not available 07/10/2022 49486 3 RxNorm RHIANNA RAMIREZ null, PA - [facility] 12:30:05 Medications Name Sig Start Date Stop Date Status Note LastModified by Organization Details LastModified Time atorvastati n 40 mg tablet Take 1 tablet every day by oral route. active Not Available Not Available No t Available metformin 500 mg tablet active Not Available Not Available Not Available atorvastati n 80 mg tablet 07/10 completed Not Available Not Available Not Available Synthroid 200 mcg tablet 07/10 completed Not Available Not Available Not Available Synthroid 100 mcg tablet 07/10 completed Not Available Not Available Not Available clonazepam 0.5 mg tablet active Not Available Not Available Not Available amlodipine 5 mg tablet active Not Available Not Available Not Available peg-electro lyte solution 420 gram oral solution PLEASE SEE ATTACHED FOR DETAILED DIRECTION S 07/10 completed Not Available Not Available Not Available trazodone 100 mg tablet active Not Available Not Available Not Available baclofen 10 mg tablet active Not Available Not Available No t Available metformin 1,000 mg tablet active Not Available Not Available Not Available diazepam 5 mg tablet TAKE 1 TABLET BY MOUTH NIGHT BEFORE EXAM AND TAKE 1 TABLET BY MOUTH 1 HOUR BEFORE PROCEDURE . 07/10 completed Not Available Not Available Not Available magnesium active Not Available Not Surekha ilable Not Available aspirin active Not Available Not Avail able Not Available levothyroxi ne active Not Available Not Available Not Available Vitamin D3 active Not Available Not Av ailable Not Available Jardiance 10 mg tablet active Not Available Not Available Not Available Fish Oil 1,000 mg (120 mg-180 mg) capsule Take by oral route. active Not Available Not Available No t Available sparsentan 400 mg tablet Take 1 tablet every day by oral route. active Not Available Not Available No t Available Vitals Date Recorded Body height Body mass index (BMI) Body weight Oxygen saturation Oxygen saturation in Arterial blood by Pulse oximetry Heart rate Respiratory rate Body temperature Provider Name and Address Organization Details Last Updated DateTime 3 170.18 cm 35.6 kg/m2 585780. 47 g 97 % 97 % 62 /min 16 /min 97.9 [degF] RHIANNA JACINTO [facility] 12:42:15 Social History Question Answer Notes LastModified by Organizat ion Details LastModified Time Tobacco Smoking Status Never Smoker RHIANNA bernal PA - [facility] 07/10/2022 12:38:07 What Is Your Level Of Alcohol Consumption? None Information not available 07/10/2022 Are You Currently Employed? Yes Information not available 07/10/2022 Do You Use Any Illicit Or Recreational Drugs? No Information not available 07/10/2022 Have You Recently Traveled Abroad? No Information not available 07/10/2022 Do You Or Have You Ever Used Any Other Forms Of Tobacco Or Nicotine? No Information not available 07/10/2022 Sex: Unknown Functional Status None recorded. Mental Status None recorded. Family History Relationship Description Onset Age of this Age Resolved Age Notes LastModified by Organization Details LastModified Time Mother Pulmonary emphysema Not available 2022 12:37:37 Medical History No medical history recorded. Immunizations Vaccine Type Date Status Note Provider Nam e and Address Organization Details Recorded Time COVID-19, mRNA, LNP-S, PF, 30 mcg/0.3 mL dose 1 completed RHIANNA bernal PA - [facility] 07/10/2022 12:28:32 COVID-19, mRNA, LNP-S, PF, 30 mcg/0.3 mL dose 1 completed RHIANNA ASHLEY null, PA - [facility] 07/10/2022 12:28:32 pneumococcal polysaccharide PPV23 7 completed RHIANNA ASHLEY null, PA - [facility] 07/10/2022 12:28:32 Tdap 1 completed RHIANNA ASHLEY null, PA - [facility] 07/10/2022 12:28:32 Influenza, split virus, trivalent, PF 7 completed RHIANNA ASHLEY null, PA - [facility] 07/10/2022 12:28:32 Influenza, split virus, quadrivalent, PF 0 completed RHIANNA ASHLEY null, PA - [facility] 07/10/2022 12:28:32 Influenza, split virus, quadrivalent, PF 1 completed RHIANNA ASHLEY null, PA - [facility] 07/10/2022 12:28:32 Influenza, split virus, quadrivalent, PF 8 completed RHIANNA ASHLEY null, PA - [facility] 07/10/2022 12:28:32 Past Encounters Encounter ID Performer Location Encounter Start Date Encounter Closed Date Diagnosis/Indication Diagnosis SNOMED-CT Code Diagnosis ICD10 Code Diagnosis Note [id number] [address] [place] [address] 03/30/2019 14:52:38 03/30/2019 15:26:03 [id number] [address] [place] [address] 03/24/2016 09:21:39 03/24/2016 09:58:51 [id number] [address] [place] [address] 03/03/2020 16:08:12 03/03/2020 17:27:39 [id number] Hardik Taylor [place] [address] [place] [address] 07/10/2022 12:15:05 07/10/2022 13:10:07 Swelling of lower leg 466997705 R22.40 Tender swelling in the right posterior legCant rule out DVTPatient will go 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 LastModified Time None Recorded Concern Status LastModified by Organization Details LastModified Time None Recorded Advance Directives Directive None Recorded Payers Encounter Date Sequence Insurance Name Policy Number Policy Prasad Covered Member ID Prasad Member ID Guarantor Name 03/24/2016 1 [employer] [id number] Major Salvador [id number] Major Salvador 03/03/2020 1 [employer] [id number] Major Salvador [id number] Major Salvador 07/10/2022 [facility] Major Salvador [id number] Major Salvador Notes Date Note Type Note Provider Name and Address Organization Details Recorded Time 07/10/2022 text/html KneeReported bypatient.Location :right Quality:throbbing; dull; deep; worsening Severity:moderate Duration:1 days Timing:cannot identify Context:cannot identify Associated Symptoms:no weakness; no numbness; no tingling;swelling; redness Previous Surgery:none Prior Imaging:none NO recent travel, no history Blood clots Hardik Taylor MD [facility] [place], [address], PA - [facility] 07/11/2022 08:18:22
== END 2024-02-27 16:34 | disposition home or self-care (01) ==
PROVIDERS: PCP Internal Medicine; Visit Provider Internal Medicine Nephrology
DX: N18.31 Chronic kidney disease, stage 3a (principal); R80.8 Other proteinuria; I15.1 Hypertension secondary to other renal disorders; N04.1 Nephrotic syndrome with focal and segmental glomerular lesions
CPT/HCPCS: 99214

== ENCOUNTER → 2024-02-27 16:02 | Outpatient (BNVA) | payer OTHER, SELFPAY | PROVIDERS: PCP Internal Medicine; Visit Provider Internal Medicine Nephrology | DX: I15.1 Hypertension secondary to other renal disorders (principal); N18.31 Chronic kidney disease, stage 3a; R80.8 Other proteinuria; N40.1 Benign prostatic hyperplasia with lower urinary tract symptoms | CPT/HCPCS: 99212 ==

== ENCOUNTER 2024-03-22 12:58 | Emergency (ER) | payer OTHER, SELFPAY ==
--- NOTE | 2024-03-22 | ECG_ITS ---
Test Reason : CP Blood Pressure : */* mmHG Vent. Rate : 62 BPM Atrial Rate : 62 BPM P-R Int : 178 ms QRS Dur : 76 ms QT Int : 396 ms P-R-T Axes : 18 -39 30 degrees QTcB Int : 401 ms Normal sinus rhythm Left axis deviation Cannot rule out Inferior infarct , age undetermined Abnormal ECG When compared with ECG of 19-Feb-2022 12:36, No significant change was found Referred By: Generic ED Physician Electronically Signed By: Shiraz Sotomayor
--- NOTE | ~2024-03-22 | US_ITS ---
CLINICAL HISTORY: leg swelling Venous duplex ultrasound bilateral lower extremity Comparison: Ultrasound from 07/10/2022 Findings: The visualized deep veins are fully compressible with normal Doppler color flow and spectral tracings. Imaged superficial soft tissues are unremarkable. IMPRESSION: 1. Negative for bilateral lower extremity deep vein thrombosis. This document has been electronically signed by: Juan Campos MD on 03/22/2024 20:17:28
--- NOTE | ~2024-03-22 | XR_ITS ---
EXAMINATION: XR CHEST 2 VIEWS HISTORY: cp/sob COMPARISON: Comparison is made with the prior examination dated 02/19/2022. FINDINGS: PA and lateral views of the chest are submitted. The lungs are expanded and clear. There is no pleural effusion, pneumothorax, or pulmonary vascular congestion. The heart is normal in size. There is degenerative disc disease of the spine. XR/XR chest 2V IMPRESSION: No acute cardiopulmonary abnormality. Electronically signed by: Pola Villa MD 03/22/2024 02:10 PM JEANNINE
[2024-03-22 13:16] VITALS: BP 145/81; PULSE 68; RESP 18; TEMP 36.6; O2SAT 99; BMI 36.0
--- NOTE | 2024-03-22 13:16 | ED_ITS ---
HPI - SOB/Dyspnea General Chief Complaint: Dyspnea Stated Complaint: PE? Heavy chest SOB, sent by urgent care Time Seen by Provider: 03/22/24 18:19 Related Data Home Medications ?Medication ?Instructions ?Recorded ?Confirmed amlodipine 5 mg tablet 5 mg PO DAILY 02/26/23 aspirin 81 mg tablet,delayed 81 mg PO DAILY 02/26/23 release atorvastatin 40 mg tablet 40 mg PO DAILY 02/26/23 baclofen 10 mg tablet 10 mg PO TID 02/26/23 cholecalciferol (vitamin D3) 25 25 mcg PO DAILY 02/26/23 mcg (1,000 unit) capsule clonazepam 0.5 mg tablet mg PO TID 02/26/23 levothyroxine 100 mcg tablet 200 mcg PO DAILY 02/26/23 loratadine 10 mg tablet 10 mg PO DAILY 02/26/23 magnesium gluconate 27 mg 27 mg PO BID 09/03/23 magnesium (500 mg) tablet (Mag-G) mecobalamin (vitamin B12) 500 mcg mcg PO 09/03/23 chewable tablet omega-3 fatty acids 1,000 mg 1,000 mg PO DAILY 09/03/23 capsule semaglutide 0.25 mg or 0.5 mg (2 2 mg subcut QWEEK 02/27/24 mg/3 mL) subcutaneous pen injector (Ozempic) semaglutide 2 mg/dose (8 mg/3 mL) 2 mg subcut QWEEK 02/27/24 subcutaneous pen injector (Ozempic) Previous Rx's ?Medication ?Instructions ?Recorded irbesartan 300 mg tablet 300 mg PO DAILY #90 tabs 04/18/23 empagliflozin 25 mg tablet 25 mg PO DAILY #90 tabs 11/26/23 (Jardiance) Allergies Allergy/AdvReac Type Severity Reaction Status Date / Time NSAIDS (Non-Steroidal Allergy Severe other Verified 03/22/24 13:18 Anti-Inflamma hazelnut Allergy Unknown Verified 03/22/24 13:18 FOR[facility]LY [facility] Past Medical History Medical History Hypertension FSGS (focal segmental glomerulosclerosis) with nephrosis Chronic kidney disease, stage 3a Proteinuria Surgical History History of tonsillectomy and adenoidectomy History of prostate surgery History of back surgery Social History Social History Alcohol intake: never Patient Tobacco Use Status: Former Tobacco user Smoked in Last 30 Days: No Use of substances other than those prescribed or required for medical reasons: No Advance Directives: No Advance Directives Information Provided: No Do you have a plan to hurt others: No Plan Physical Exam 2 Vital Signs: Vital Signs: Last Vital Signs Temp 97.7 F 03/22/24 18:26 Pulse 61 03/22/24 18:26 Resp 18 03/22/24 18:26 BP 168/81 H 03/22/24 18:26 Pulse Ox 98 03/22/24 18:26 O2 Del Method Room Air 03/22/24 18:26 BMI result Body Mass Index 36.0 Course Course Course Narrative: This is a Rapid Medical Exam performed in triage by Kim Villanueva PA-C. Full HPI, ROS and PE to be performed by primary ED provider. 64yo M w/PMHx CKD, HTN presenting to the ED c/o COVID +03/07/24, c/o exertional SOB & chest tightness/heaviness sent in from today. Finished Doxy on Friday for continued cough s/p COVID w/neg XR. denies AC use, travel, hx clots PE: talking in complete sentences, lungs CTA Plan: EKG, labs, CXR, viral testing Medical Decision Making Lab Data 03/22/24 15:33 03/22/24 15:33 Labs: Lab Results 03/22/24 03/22/24 Range/Units 15:33 18:45 WBC 8.1 (4.8-10.8) X10*3/uL RBC 4.94 D (4.60-5.80) X10*6/uL Hgb 14.4 (14.0-18.0) g/dl Hct 42.6 (42.0-52.0) % MCV 86.2 (80.0-98.0) fL MCH 29.1 (27.0-33.0) pg MCHC 33.8 (31.0-36.0) g/dl RDW 13.0 (11.0-16.0) % Plt Count 237 D (160-400) X10*3/uL MPV 8.7 L (9.4-12.4) fL Immature Gran % (Auto) 0.5 H (0.0-0.4) % Neut % (Auto) 75.1 H (45-73) % Lymph % (Auto) 14.7 L (20-40) % [place] % (Auto) 6.7 (2-11) % Eos % (Auto) 2.6 (0-4) % Baso % (Auto) 0.4 (0-2) % Lymph # (Auto) 1.2 (1.2-4.9) X10*3/uL [place] # (Auto) 0.5 (0.1-1.2) X10*3/uL Eos # (Auto) 0.2 (0.0-0.4) X10*3/uL Baso # (Auto) 0.0 (0.0-0.2) X10*3/uL Abs Immat Gran (auto) 0.04 H (0.00-0.03) X10*3/uL Absolute Neuts (auto) 6.1 (2.0-8.3) x10*3/uL Absolute Nucleated RBC 0.000 (0.0-0.012) X10*3/uL Nucleated RBC % (auto) 0.0 (0.0-0.2) /100WBC PT 11.1 (10.9-12.4) SEC INR 1.0 (0.9-1.1) D-Dimer High Sensitivty < 150 NG/ML Sodium 140 (135-145) mmol/L Potassium 5.0 (3.3-5.1) mmol/L Chloride 105 (96-108) mmol/L Carbon Dioxide 30 H (22-29) mmol/L Anion Gap 10 L (12-20) BUN 46 H (9-16) mg/dL Creatinine 2.07 H (0.5-1.4) mg/dL Estim Creat Clear Calc 42.0 Estimated GFR 33 Random Glucose 206 H (60-115) mg/dL Calcium 9.4 (8.4-10.2) mg/dL Magnesium 2.5 (1.6-2.6) mg/dL Total Bilirubin 0.5 (0.0-1.0) mg/dL Direct Bilirubin 0.1 (0.0-0.5) mg/dL AST 20 (5-37) U/L ALT 36 (0-40) U/L Alkaline Phosphatase 56 (39-117) U/L Troponin I High Sens 6.3 6.7 (<3.5-35.0) ng/L B-Natriuretic Peptide 11 (<100) pg/mL Total Protein 6.9 (6.5-8.0) g/dL Albumin 3.9 (3.5-5.0) g/dL Influenza Type A (PCR) NEGATIVE (Negative) Influenza Type B (PCR) NEGATIVE (Negative) RSV RNA Qual (PCR) NEGATIVE (Negative) SARS-CoV-2 RNA (RT-PCR) POSITIVE A (Negative) Discharge Plan Discharge Clinical Impression: Chronic kidney disease, stage 3a, Hypertension, COVID, Chest pain Patient Disposition: Home, Self-Care Instructions: Chest Pain (DC) Prescriptions: No Action irbesartan 300 mg tablet 300 mg PO DAILY Qty: 90 4RF amlodipine 5 mg tablet 5 mg PO DAILY atorvastatin 40 mg tablet 40 mg PO DAILY baclofen 10 mg tablet 10 mg PO TID clonazepam 0.5 mg tablet PO TID levothyroxine 100 mcg tablet 200 mcg PO DAILY Patient Comments: 1 tab Friday & Friday aspirin 81 mg tablet,delayed release (DR/EC) 81 mg PO DAILY loratadine 10 mg tablet 10 mg PO DAILY cholecalciferol (vitamin D3) 25 mcg (1,000 unit) capsule 25 mcg PO DAILY omega-3 fatty acids 1,000 mg capsule 1,000 mg PO DAILY Ozempic 0.25 mg or 0.5 mg (2 mg/3 mL) pen injector 2 mg subcut QWEEK Jardiance 25 mg tablet 25 mg PO DAILY Qty: 90 4RF Ozempic 2 mg/dose (8 mg/3 mL) pen injector 2 mg subcut QWEEK magnesium gluconate [Mag-G] 27 mg magnesium (500 mg) tablet 27 mg PO BID mecobalamin (vitamin B12) 500 mcg tablet,chewable PO Referrals: Shiraz Sotomayor MD [Physician] - 03/24/24 Print Language: Urdu
[2024-03-22 15:37] LABS: MANUAL DIFF FLAG NO
[2024-03-22 15:38] LABS: Basophils Percent Auto 0.4 % (0-2); Eosinophils Absolute Auto 0.2 X10*3/uL (0.0-0.4); Eosinophils Percent Auto 2.6 % (0-4); Hematocrit 42.6 % (42.0-52.0); Hemoglobin 14.4 g/dl (14.0-18.0); Imm Gran Abs Auto 0.04 X10*3/uL (0.00-0.03); Imm Gran Pct Auto 0.5 % (0.0-0.4); Lymphocytes Absolute Auto 1.2 X10*3/uL (1.2-4.9); Lymphocytes Percent Auto 14.7 % (20-40); Mean Corpuscular HGB Conc 33.8 g/dl (31.0-36.0); Mean Corpuscular Hemoglobin 29.1 pg (27.0-33.0); Mean Corpuscular Volume 86.2 fL (80.0-98.0); Mean Platelet Volume 8.7 fL (9.4-12.4); Monocytes Absolute Auto 0.5 X10*3/uL (0.1-1.2); Monocytes Percent Auto 6.7 % (2-11); Neutrophils Absolute Auto 6.1 x10*3/uL (2.0-8.3); Neutrophils Percent Auto 75.1 % (45-73); Platelet Count 237 X10*3/uL (160-400); Red Blood Count 4.94 X10*6/uL (4.60-5.80); White Blood Count 8.1 X10*3/uL (4.8-10.8)
[2024-03-22 15:43] LABS: Prothrombin Time 11.1 SEC (10.9-12.4)
[2024-03-22 15:58] LABS: B Type Natriuretic Peptide 11 pg/mL (<100)
[2024-03-22 15:59] LABS: Troponin-I High Sensitivity 6.3 ng/L (<3.5-35.0)
[2024-03-22 16:06] LABS: Alanine Aminotransferase 36 U/L (0-40); Albumin Level 3.9 g/dL (3.5-5.0); Anion Gap 10 (12-20); Aspartate Amino Transferase 20 U/L (5-37); Bilirubin Direct 0.1 mg/dL (0.0-0.5); Bilirubin Total 0.5 mg/dL (0.0-1.0); Blood Urea Nitrogen 46 mg/dL (9-16); Calcium 9.4 mg/dL (8.4-10.2); Carbon Dioxide 30 mmol/L (22-29); Chloride 105 mmol/L (96-108); Estimated Glomerular Filt Rate 33; Glucose Random 206 mg/dL (60-115); Magnesium 2.5 mg/dL (1.6-2.6); Sodium 140 mmol/L (135-145); Total Protein 6.9 g/dL (6.5-8.0)
[2024-03-22 16:27] LABS: Influenza A PCR NEGATIVE (Negative); Influenza B PCR NEGATIVE (Negative); Resp Syncy Virus RNA Qual PCR NEGATIVE (Negative); SARS COV2 PCR INHOUSE POSITIVE (Negative)
[2024-03-22 17:37] LABS: Alkaline Phosphatase 56 U/L (39-117)
[2024-03-22 18:26] VITALS: BP 168/81; PULSE 61; RESP 18; TEMP 36.5; O2SAT 98
--- NOTE | 2024-03-22 18:41 | ED.SOB ---
HPI - SOB/Dyspnea General Chief Complaint: Dyspnea Stated Complaint: PE? Heavy chest SOB, sent by urgent care Time Seen by Provider: 03/22/24 18:19 History of Present Illness HPI Narrative: Patient is a 64-year-old male had a history of hypertension. History of chronic kidney disease. Positive coughing upper respiratory symptoms prior. Was diagnosed with COVID on March 07. Subsequent follow-up continued to have tightness was noted to have abnormal lung finding. Patient then had a course of doxycycline for 1 week. Still feels a tightness in his chest. Came to the ED. The tightness is constant. It is not associated with diaphoresis. There is no fever no chills. Patient is from home. Positive history of diabetes positive history of hypertension patient from home. No history of SD. no history of congestive heart failure. Related Data Home Medications ?Medication ?Instructions ?Recorded ?Confirmed amlodipine 5 mg tablet 5 mg PO DAILY 02/26/23 aspirin 81 mg tablet,delayed 81 mg PO DAILY 02/26/23 release atorvastatin 40 mg tablet 40 mg PO DAILY 02/26/23 baclofen 10 mg tablet 10 mg PO TID 02/26/23 cholecalciferol (vitamin D3) 25 25 mcg PO DAILY 02/26/23 mcg (1,000 unit) capsule clonazepam 0.5 mg tablet mg PO TID 02/26/23 levothyroxine 100 mcg tablet 200 mcg PO DAILY 02/26/23 loratadine 10 mg tablet 10 mg PO DAILY 02/26/23 magnesium gluconate 27 mg 27 mg PO BID 09/03/23 magnesium (500 mg) tablet (Mag-G) mecobalamin (vitamin B12) 500 mcg mcg PO 09/03/23 chewable tablet omega-3 fatty acids 1,000 mg 1,000 mg PO DAILY 09/03/23 capsule semaglutide 0.25 mg or 0.5 mg (2 2 mg subcut QWEEK 02/27/24 mg/3 mL) subcutaneous pen injector (Ozempic) semaglutide 2 mg/dose (8 mg/3 mL) 2 mg subcut QWEEK 02/27/24 subcutaneous pen injector (Ozempic) Previous Rx's ?Medication ?Instructions ?Recorded irbesartan 300 mg tablet 300 mg PO DAILY #90 tabs 04/18/23 empagliflozin 25 mg tablet 25 mg PO DAILY #90 tabs 11/26/23 (Jardiance) Allergies Allergy/AdvReac Type Severity Reaction Status Date / Time NSAIDS (Non-Steroidal Allergy Severe other Verified 03/22/24 13:18 Anti-Inflamma hazelnut Allergy Unknown Verified 03/22/24 13:18 Review of Systems Review of Systems: Positive shortness of breath Yes all other systems are reviewed and are negative [facility] Past Medical History Attestation statement: The following information was validated with the patient. Medical History Hypertension FSGS (focal segmental glomerulosclerosis) with nephrosis Chronic kidney disease, stage 3a Proteinuria Surgical History History of tonsillectomy and adenoidectomy History of prostate surgery History of back surgery Social History Social History Alcohol intake: never Patient Tobacco Use Status: Former Tobacco user Smoked in Last 30 Days: No Use of substances other than those prescribed or required for medical reasons: No Advance Directives: No Advance Directives Information Provided: No Do you have a plan to hurt others: No Plan Physical Exam Vital Signs: Vital Signs: Last Vital Signs Temp 97.7 F 03/22/24 18:26 Pulse 61 03/22/24 18:26 Resp 18 03/22/24 18:26 BP 168/81 H 03/22/24 18:26 Pulse Ox 98 03/22/24 18:26 O2 Del Method Room Air 03/22/24 18:26 BMI result Body Mass Index 36.0 Const: Other: Appearance: Alert. Oriented X3. No acute distress. Eyes: Pupils equal, round and reactive to light. ENT: Pharynx normal. Neck: Normal inspection. Neck supple. No lymph nodes noted. No crepitus CVS: Normal heart rate and rhythm. Pulses normal. Normal S1 and S2 Respiratory: No respiratory distress. Breath sounds normal. No Wheezing. No rales Abdomen: Soft and nontender. No rigidity. No distention. good BS x4 Skin: Skin warm and dry. Normal skin color. Normal skin turgor. Extremities: No lower extremity edema. Neurovascular intact to all extremities. No Lacerations. No Rash Neuro: Oriented X 3. No motor deficit. No sensory deficit. Moving all extermities. No slurred speech Medical Decision Making Medical Decision Making MDM Narrative: Patient's COVID test came back positive. Likely related to previous infection not a current infection. My interpretation patient's chest x-ray is grossly negative for any acute evidence of pneumonia. Patient's 1st set of troponin is negative. BNP is 11. There is no evidence for congestive heart failure. Patient creatinine is 2. This is baseline. However given the elevated creatinine felt uneasy about sending patient for CTA of the chest. A D-dimer was ordered. Attempted to get a V/Q scan but they are not available. Doppler of the bilateral lower extremity was ordered. Patient's hemoglobin is 14.4 there is no evidence for anemia. White count is normal. Lungs are clear. Other than having recent COVID patient has no other risk for PE. Doppler of the bilateral lower extremity was interpreted by radiology's grossly negative for DVT. Patient is D-dimer is negative. In the setting of negative D-dimer negative Doppler with poor history for PE patient risk for PE is low. Will discharge patient home. Currently in stable condition. Two sets of cardiac enzymes were negative. History atypical for ACS. My interpretation of patient's EKG showed a sinus rhythm heart rate is 60 [place] QRS QTC normal there is Q-waves over the inferior leads noted. This is not changed from previous. Differential Diagnosis Differential Diagnoses: The differential diagnosis associated with the presentation includes Pneumonia, COVID, flu, RSV, PE, ACS Admission/Observation Consideration of admission/observation: Escalation of care including admission/observation considered Lab Data MDM Lab Attestation statement: I reviewed the patient's lab results. 03/22/24 15:33 03/22/24 15:33 Labs: Lab Results 03/22/24 03/22/24 Range/Units 15:33 18:45 WBC 8.1 (4.8-10.8) X10*3/uL RBC 4.94 D (4.60-5.80) X10*6/uL Hgb 14.4 (14.0-18.0) g/dl Hct 42.6 (42.0-52.0) % MCV 86.2 (80.0-98.0) fL MCH 29.1 (27.0-33.0) pg MCHC 33.8 (31.0-36.0) g/dl RDW 13.0 (11.0-16.0) % Plt Count 237 D (160-400) X10*3/uL MPV 8.7 L (9.4-12.4) fL Immature Gran % (Auto) 0.5 H (0.0-0.4) % Neut % (Auto) 75.1 H (45-73) % Lymph % (Auto) 14.7 L (20-40) % [place] % (Auto) 6.7 (2-11) % Eos % (Auto) 2.6 (0-4) % Baso % (Auto) 0.4 (0-2) % Lymph # (Auto) 1.2 (1.2-4.9) X10*3/uL [place] # (Auto) 0.5 (0.1-1.2) X10*3/uL Eos # (Auto) 0.2 (0.0-0.4) X10*3/uL Baso # (Auto) 0.0 (0.0-0.2) X10*3/uL Abs Immat Gran (auto) 0.04 H (0.00-0.03) X10*3/uL Absolute Neuts (auto) 6.1 (2.0-8.3) x10*3/uL Absolute Nucleated RBC 0.000 (0.0-0.012) X10*3/uL Nucleated RBC % (auto) 0.0 (0.0-0.2) /100WBC PT 11.1 (10.9-12.4) SEC INR 1.0 (0.9-1.1) D-Dimer High Sensitivty < 150 NG/ML Sodium 140 (135-145) mmol/L Potassium 5.0 (3.3-5.1) mmol/L Chloride 105 (96-108) mmol/L Carbon Dioxide 30 H (22-29) mmol/L Anion Gap 10 L (12-20) BUN 46 H (9-16) mg/dL Creatinine 2.07 H (0.5-1.4) mg/dL Estim Creat Clear Calc 42.0 Estimated GFR 33 Random Glucose 206 H (60-115) mg/dL Calcium 9.4 (8.4-10.2) mg/dL Magnesium 2.5 (1.6-2.6) mg/dL Total Bilirubin 0.5 (0.0-1.0) mg/dL Direct Bilirubin 0.1 (0.0-0.5) mg/dL AST 20 (5-37) U/L ALT 36 (0-40) U/L Alkaline Phosphatase 56 (39-117) U/L Troponin I High Sens 6.3 6.7 (<3.5-35.0) ng/L B-Natriuretic Peptide 11 (<100) pg/mL Total Protein 6.9 (6.5-8.0) g/dL Albumin 3.9 (3.5-5.0) g/dL Influenza Type A (PCR) NEGATIVE (Negative) Influenza Type B (PCR) NEGATIVE (Negative) RSV RNA Qual (PCR) NEGATIVE (Negative) SARS-CoV-2 RNA (RT-PCR) POSITIVE A (Negative) Independent Interpretation I performed an independent interpretation of an: EKG (Sinus heart rate is 70 [place] QRS QTC normal no acute ST segment elevation Q-waves over the inferior) and Plain X-Ray (Grossly negative for acute evidence of pneumonia pneumothorax) Radiology Impression Discussion of test interpretation with radiology: I have reviewed the radiologist's reading. Independent Historian Clinical information obtained from an independent historian. History obtained from or confirmed by: Spouse Chronic Conditions Patient?s care impacted by: Diabetes History of COVID Discharge Plan Discharge Clinical Impression: Chronic kidney disease, stage 3a, COVID, Chest pain Hypertension Qualifiers: Hypertension type: secondary to other renal disorders Qualified Code(s): I15.1 - Hypertension secondary to other renal disorders Patient Disposition: Home, Self-Care Instructions: Chest Pain (DC) Prescriptions: No Action irbesartan 300 mg tablet 300 mg PO DAILY Qty: 90 4RF amlodipine 5 mg tablet 5 mg PO DAILY atorvastatin 40 mg tablet 40 mg PO DAILY baclofen 10 mg tablet 10 mg PO TID clonazepam 0.5 mg tablet PO TID levothyroxine 100 mcg tablet 200 mcg PO DAILY Patient Comments: 1 tab Friday & Friday aspirin 81 mg tablet,delayed release (DR/EC) 81 mg PO DAILY loratadine 10 mg tablet 10 mg PO DAILY cholecalciferol (vitamin D3) 25 mcg (1,000 unit) capsule 25 mcg PO DAILY omega-3 fatty acids 1,000 mg capsule 1,000 mg PO DAILY Ozempic 0.25 mg or 0.5 mg (2 mg/3 mL) pen injector 2 mg subcut QWEEK Jardiance 25 mg tablet 25 mg PO DAILY Qty: 90 4RF Ozempic 2 mg/dose (8 mg/3 mL) pen injector 2 mg subcut QWEEK magnesium gluconate [Mag-G] 27 mg magnesium (500 mg) tablet 27 mg PO BID mecobalamin (vitamin B12) 500 mcg tablet,chewable PO Referrals: Shiraz Sotomayor MD [Physician] - 03/24/24 Print Language: Dutch
--- OUTSIDE RECORDS SUMMARY | 2024-03-22 18:42 | XMS_ITS | Data Portability ---
Author Organization [facility] , [id number] Address [address] [place] [address] Assessment No assessment recorded. Plan of Treatment [...] Address Organization Details Recorded Time Diabetes mellitus 41500720 Active 2022 RHIANNA ASHLEY null, [place] - [facility] 3 12:34:05 Focal segmental glomeruloscler osis 706991602 Active 2022 RHIANNA ASHLEY null, [place] - [facility] 3 12:34:40 Disorder of thyroid gland 95769347 Active 2022 RHIANNA ASHLEY null, PA - [facility] 3 12:34:55 Hypertensive disorder 50323033 Active 2022 RHIANNA ASHLEY null, PA - [facility] 3 12:35:18 Hyperlipidemia 49278659 Active 2022 RHIANNA ASHLEY null, PA - [...] Name and Address Organization Details Recorded Time 891174 Non-stero idal anti-infl ammatory agent (product) medicatio n other Not available Not available 07/10/2022 94823 005 SNOMED RHIANNA RAMIREZ null, [place] - [facility] 12:29:05 217663 hazelnut allergeni c extract food headache Not available Not available 07/10/2022 97027 3 RxNorm RHIANNA RAMIREZ null, PA - [...] t Available Vitals Date Recorded Body height Pain severity - 0-10 verbal numeric rating [Score] - Reported Body mass index (BMI) Body weight Oxygen saturation Oxygen saturation in Arterial blood by Pulse oximetry Heart rate Respiratory rate Body temperature Provider Name and Address Organization Details Last Updated DateTime 3 170.18 cm 2 35.6 kg/m2 191677. 47 g 97 % 97 % 62 /min 16 /min 97.9 [degF] RHIANNA Mcgrath [facility] 12:42:15 Social History Question Answer Notes LastModified by Organizat ion Details LastModified Time Tobacco Smoking Status Never Smoker [facility] 07/10/2022 12:38:07 What Is Your [...] PF, 30 mcg/0.3 mL dose 1 completed [facility] 07/10/2022 12:28:32 COVID-19, mRNA, LNP-S, [...] SNOMED-CT Code Diagnosis ICD10 Code Diagnosis Note [id number] [address] [place] [id number] 03/30/2019 14:52:38 03/30/2019 15:26:03 [id number] [address] [place] [address] 03/24/2016 09:21:39 03/24/2016 09:58:51 [id number] [address] [place] [address] 03/03/2020 16:08:12 03/03/2020 17:27:39 [id number] Hardik Taylor MD [address] [place] [address] 07/10/2022 12:15:05 07/10/2022 13:10:07 Swelling of lower leg [id number] R22.40 Tender swelling in the right posterior legCant rule out [place]Patient [place] D[facility] Health Concerns Section Related Observation LastModified by Organization Detai ls LastModified Time None Recorded Concern Status LastModified by Organization Details LastModified Time None Recorded Advance Directives Directive None Recorded Payers Encounter Date Sequence Insurance Name Policy Number Policy Prasad Covered Member ID Prasad Member ID Guarantor Name 03/24/2016 1 [employer] [id number] Major Salvador [id number] Major Salvador 03/03/2020 1 [employer] [id number] Major Salvador [id number] Major Salvador 07/10/2022 [facility] Major Salvador [id number] Major Salvador Notes Date Note Type Note Provider Name and Address Organization Details Recorded Time 07/10/2022 text/html KneeReported bypatient.Location :right Quality:throbbing; dull; deep; worsening Severity:moderate Duration:1 days Timing:cannot identify Context:cannot identify Associated Symptoms:no weakness; no numbness; no tingling;swelling; redness Previous Surgery:none Prior Imaging:none NO recent travel, no history Blood clots Hardik Taylor MD [facility] [place], [address], [place] - [facility] 07/11/2022 08:18:22
--- OUTSIDE RECORDS SUMMARY | 2024-03-22 18:42 | XMS_ITS | Encounter Summary ---
Author Organization [facility] Address [address] [place] [address] Care Team Providers Care Sales Recruiting Coordinator Name Role Phone Unavailable Primary Care Provider Unavailabl e Encounter Details Date Type Department Care Team (Late st Contact Info) Description 08/30/2021 Scanned Document [address] [phone] Podiatry, Scan Social History Tobacco Use Types Packs/Day Years Used Date Smoking Tobacco: Never Assessed Sex and Gender Information Value Date Recorded Sex Assigned at Not on file Gender Identity Not on file Sexual Orientation Not on file documented as of this encounter Plan of Treatment Not on file documented as of this encounter Visit Diagnoses Not on filedocumented in this encounter
--- OUTSIDE RECORDS SUMMARY | 2024-03-22 18:42 | XMS_ITS | Clinical Summary ---
Author Organization [facility] Address [address] [place] [address] Phone Care Team Providers Care Wool Shearing Supervisor Name Role Phone Lev Christianson MD Primary Care Prov ider Allergies Active Allergy Reactions Criticality Noted Date Comments Aspirin Other (see comments) 08/30/2021 Hazelnut (Filbert) Other (see comments) 022 Ibuprofen Other (see comments) 08/30/2021 Ketorolac Tromethamine 07/23/2016 Lovastatin 09/30/2011 Naproxen Other (see comments) 08/30/2021 Nsaids Other (see comments) 05/10/2020 Spironolactone Swelling 12/22/2008 Medications Blood Pressure kit 1 kit 12/22/2018 Active aspirin (ST JAYASHREE) 81 MG EC tablet Take 1 tablet by mouth 1 (one) time each day Active cholecalciferol (VITAMIN D-3) 25 MCG (1000 UT) tablet Take 1 capsule by mouth 1 (one) time each day Active levothyroxine (SYNTHROID, LEVOTHROID) 200 MCG tablet Take 1 tablet by mouth 1 (one) time each day 1 tab on Sun Active Magnesium 500 MG capsule Take 1 capsule by mouth 1 (one) time each day Active Spicewood-3 Fatty Acids (Fish Oil) 1000 MG capsule delayed-release Take 1 tablet by mouth 1 (one) time each day Active Jardiance 10 MG tablet Take 1 tablet by mouth 1 (one) time each day 03/22/2021 Active amLODIPine (NORVASC) 5 MG tablet Take 1 tablet by mouth 1 (one) time each day 06/05/2021 Active atorvastatin (LIPITOR) 40 MG tablet Take 1 tablet by mouth 1 (one) time each day 08/15/2021 Active clonazePAM (KlonoPIN) 0.5 MG tablet Take 0.5 mg by mouth in the morning and 0.5 mg in the evening and 0.5 mg before bedtime. Active baclofen (LIORESAL) 10 MG tablet Take 10 mg by mouth in the morning and 10 mg in the evening and 10 mg before bedtime. Active Semaglutide,0.2 5 or 0.5MG/DOS, (Ozempic, 0.25 or 0.5 MG/DOSE,) 2 MG/1.5ML solution pen-injector Inject under the skin Active loratadine (CLARITIN) 10 MG tablet Take 10 mg by mouth 1 (one) time each day Active Synthroid 100 MCG tablet Take 200 mcg by mouth 1 (one) time each day 1 tab daily 08/23/2022 Active Active Problems Problem Noted Date Diagnosed Date Allergic rhinitis due to pollen 02/13/2023 02/13/2023 Anemia 02/13/2023 02/13/2023 Constipation 02/13/2023 02/13/2023 Cramp in lower leg 02/13/2023 02/13/2023 Encounter for fitting and ad justment of spectacles and contact lenses 02/13/2023 02/13/2023 Encounter for immunization 02/13/202302/13 Erectile dysfunction 02/13/2023 02/13/2023 Insomnia 02/13/2023 02/13/2023 Lumbago with sciatica, unspecified side 02/14/20 23 02/13/2023 Lumbar radiculopathy 02/13/2023 02/13/2023 Nephrotic syndrome 02/13/2023 02/13/2023 Overview (02/13/2023): July 17, 2016 Entered By: ZAY SOUZA Comment: Dr. Presley NephrologistMay 2016 Entered By: ZAY SOUZA Comment: [facility] 07/14/16 dehydration, AKIOct 2016 Entered By: ZAY SOUZA Comment: Dr. Presley office note 11/18/16 in [facility] dated 11/19/16.May 21, 2018 Entered By: RADHA DELVALLE Comment: On Both ACEI and ARB per Nephro as of 2019Jul 2022 Entered By: LEV THURMAN Comment: 2021 on Jardiance and SPARSENTAN 400mg daily Sleep apnea 02/13/2023 02/13/2023 Obstructive sleep apnea 02/13/2023 02/14/20 Obstructive sleep apnea syndrome 02/13/2023 02/13/2023 Overview (02/13/2023): Aug 17, 2022 Entered By: LEV OCONNELL Comment: 2022 sleep study moderate LYN, AHI 26- on CPAP Other hypertrophic disorder of the skin 02/14/2002/13/2023 Other specified counseling 02/13/202302/13 Primary IgA nephropathy 02/13/2023 02/14/20 Overview (02/13/2023): Nov 13, 2006 Entered By: KAYDEN CHESTER Comment: focal segment[facility] glomerulosclerosis [facility] Entered By: KAYDEN CHESTER Comment: Proteinuria Screening for malignant neoplasms of colon 02/1302/13/2023 Overview (02/13/2023): Sep 23, 2011 Entered By: CESAR ROD Comment: 06/2011 repeat 10 yrsDec 2021 Entered By: LEV OCONNELL Comment: 12/2021 one polyp. Repeat in 5 yearsDec 2021 Entered By: LEV OCONNELL Comment: 01-15-22 DANI Giordano MD Sessile serrated lesion return 5 years Type 2 diabetes mellitus without complication 02/13/2023 Overview (02/13/2023): Nov 26, 2006 Entered By: KAYDEN CHESTER Comment: ANAM done 11/23/06 [place] No DM retinopathy Serrated polyp of colon 01/18/2022 Overview (03/20/2022): repeat screening in 2026 Acquired hammer toe of left foot 09/12/2021 Acquired hammer toe of right foot 09/12/2021 Polyneuropathy due to type 2 diabetes mellitus 0 09/12/2021 Stage 3a chronic kidney disease 12/27/2020 Hypertension 12/27/2020 Chronic kidney disease stage 2 05/10/2020 Focal segmental glomerulosclerosis 05/10/2020 Hypertensive renal disease 05/10/2020 History of excision of jamaal a of lumbar vertebra for decompression of spinal cord 09/17/2016 02/13/2023 Overview (02/13/2023): Oct 11, 2016 Entered By: CESAR ROD Comment: L5-S1 decompression and right foramenectomy 10/08/16 Dr. Bobby Van Benign essential hypertension 11/02/2013 Renal disorder due to type 2 diabetes mellitus 0 03/16/2012 Resolved Problems Problem Noted Date Diagnosed Date Resolved Date Acquired hypothyroidism 03/14/202102/18 Body mass index 30+ - obesity 03/14/2021 03/14/2021 Overview (03/14/2021): genetic counsellor Carpal tunnel syndrome 03/14/202103/14 Chronic rhinitis 03/14/2021 03/14/2021 Diabetes mellitus 03/14/2021 03/14/2021 Hyperlipidemia 03/14/2021 03/14/2021 Malignant neoplasm of prostate 03/14/2021 03/14/2021 Overview (03/14/2021): radical prostatectomy, Migraine 03/14/2021 03/14/2021 Prolapsed lumbar intervertebral disc 03/14/2021 03/14/2021 Overview (03/14/2021): MRI August 2012 Vitamin D deficiency 03/14/2021 022 Immunizations Name Administration Dates Next Due DTaP, Unspecified 06/19/2010 H1N1 All Forms 03/15/2009 Hepatitis B 05/12/2014,11/12/2013,10/12/2013 Influenza (IM) Preservative Free 11/23/2014 Influenza LAIV (Nasal) 11/16/2014 Influenza Whole 11/24/2009,11/07/2008,12/03/2007 Influenza, MDCK, PF, Quadrivalent 11/05/2018 Influenza, Quadrivalent, Pre servative Free 12/04/2022,10/28/2019 Influenza, Unspecified 12/24/2021,2020,10/30/2018,11/17,11/15/2016,11/15/2015,11/16/2014 ,11/08/2013,11/18/2012,11/01/2011,10/18,12/05/2009,11/07/2008, 8,02/17/2007,12/18/2006,12/09/2006,,12/25/2004,01/11/2004,11/26/19 02 Moderna SARS-COV-2 01/22/2022 Pfizer SARS-COV-2 12/18/2020,11/27/2020 Pneumococcal Conjugate 13-Valent 10/12/2013,09/18 Pneumococcal Polysaccharide 11/18/2016, 4,12/27/2005 Pneumococcal, Unspecified 10/27/2006 Shingrix 02/27/2022,12/31/2021 Td, Unspecified 04/15/2002 Tdap 03/29/2020 Zoster 01/05/2014 Family History Relation Status Comments Father Mother Social History Tobacco Use Types Packs/Day Years Used Date Smoking Tobacco: Never Smokeless Tobacco: Never Tobacco Cessation:Counseling Given: Not Answered Alcohol Use Standard Drinks/Week Comments No 0 (1 standard drink = 0.6 oz pur e alcohol) Sex and Gender Information Value Date Recorded Sex Assigned at Not on file Legal Sex Male 5:14 PM EST Gender Identity Not on file Sexual Orientation Not on file Last Filed Vital Signs Vital Sign Reading Time Taken Comments Blood Pressure 120/72 11/06/2022 4:25 PM EDT Pulse 66 11/06/2022 4:25 PM EDT Temperature - - Respiratory Rate - - Oxygen Saturation 99% 03/14/2021 4:02 PM EST Inhaled Oxygen Concentration - - Weight 105 kg (232 lb) 11/06/2022 4:25 PM EDT Height 170.2 cm (5' 7 ) 12/22/2019 12:00 PM EST Body Mass Index 36.34 12/22/2019 12:00 PM EST Plan of Treatment Health Maintenance Due Date Last Done Comments Colorectal Cancer Screening: Annual FOBT 2010 Colorectal Cancer Screening: Colonoscopy 2010 Colorectal Cancer Screening: Sigmoidoscopy 2010 Diabetes: Hemoglobin A1C 03/20/2020 08/23/2019, 10/0 09/2018 Diabetes: Ophthalmology Exam 03/20/2020 Diabetes: Pedal Pulse Checked 03/20/2020 Diabetes: Sensory Foot Exam 03/20/2020 Diabetes: Visual Foot Exam 03/20/2020 Influenza Vaccine (#1) 2023 3, 12/24/2021, 11/02/2020, Additional history exists Pneumococcal Vaccine: Pediatrics (0 to 5 Years) and At-Risk Patients (6 to 64 Years) (4 of 4 - PPSV23 or PCV20) 2026 11/18/2016, 10/12/2013, 10/06/2013, Additional history exists Hepatitis B Vaccine Aged Out 05/12/2014, 11/12/2013, 10/12/2013 No longer eligible based on patient's age to complete this topic Procedures Procedure Name Priority Date/Time Associated Diagnosis Comments BLOOD PANEL (HC) Routine 08/23/2019 12:0 0 AM EDT from Last 3 Months or Most Recently Relevant to Health Maintenance Results * (ABNORMAL) Blood Panel (08/23/2019 12:00 AM EDT) Sodium 140 137 - 145 mmol/L [facility] eGFR Non- 39(L) >60 ml/min [facility] Hemoglobin A1C 6.6(H) <5 % [facility] eGFR 47(L) >60 ml/min [facility] Potassium 4.6 3.5 - 5.1 mmol/L [facility] BUN 37(H) 9 - 20 mg/dl [facility] Calcium 9.2 8.4 - 10.2 mg/dl [facility] Carbon Dioxide (CO2) 24 22 - 30 mmol/L [facility] Creatinine 1.89(H) 0.70 - 1.30 mg/dl [facility] 08/23/2019 us [facility] [id number] LICITED RESULTS Final Result [facility] from Last 3 Months or Most Recently Relevant to Health Maintenance Insurance AETNA AETNA Care Teams Wool Shearing Supervisor Relationship Specialty Start Date End Date Lev Christianson MD [address] [place] [phone] PCP - General 05/10/20
--- OUTSIDE RECORDS SUMMARY | 2024-03-22 18:42 | XMS_ITS | Clinical Summary ---
Author Organization [facility] Address [address] [place] [address] Care Team Providers Care Can Piler Name Role Phone Unavailable Primary Care Provider Unavailabl e Social History Tobacco Use Types Packs/Day Years Used Date Smoking Tobacco: Never Assessed Sex and Gender Information Value Date Recorded Sex Assigned at Not on file Gender Identity Not on file Sexual Orientation Not on file Plan of Treatment Health Maintenance Due Date Last Done Comments Hepatitis C Virus Screening 1961 HIV Screening 1974 DTaP/Tdap/Td Vaccines (1 - Tdap) 01/10/1980 Pneumococcal Vaccines 50+ (1 of 1 - PCV) 2011 Zoster (Shingles) Vaccine (1 of 2) 2011 COVID-19 Vaccine ( - 2023-2 5 season) 2023 RSV Vaccine 60 years and old er and Patients (1 - 1-dose 75+ series) 01/10/2036 Hepatitis B Vaccines Aged Out No long er eligible based on patient's age to complete this topic Pneumococcal Vaccine: Pediat key (0-5 Years) and At-Risk Patients (6 to 49 Years) Aged Out No longer eligible b ased on patient's age to complete this topic
[2024-03-22 19:08] LABS: Troponin-I High Sensitivity 6.7 ng/L (<3.5-35.0)
[2024-03-22 19:13] LABS: D Dimer High Sensitivity < 150 NG/ML
[2024-03-22 19:53] VITALS: BP 168/81; PULSE 61; RESP 18; TEMP 36.5; O2SAT 98
== END 2024-03-22 19:53 | disposition home or self-care (01) ==
PROVIDERS: Physician Assistant; Emergency Provider Emergency Medicine Emergency Medical Services; PCP Internal Medicine
DX: I12.9 Hypertensive chronic kidney disease with stage 1 through stage 4 chronic kidney disease, or unspecified chronic kidney disease (principal); N18.31 Chronic kidney disease, stage 3a; U07.1 COVID-19; R06.02 Shortness of breath; R60.0 Localized edema; R07.89 Other chest pain; R05.9 Cough, unspecified; Z87.891 Personal history of nicotine dependence; Z79.899 Other long term (current) drug therapy
CPT/HCPCS: 0241U; 36415; 71046; 80048; 80076; 83735; 83880; 84484; 85025; 85379; 85610; 93005; 93970; 99284

== ENCOUNTER → 2024-03-22 13:18 | Outpatient (BNV) | payer OTHER, SELFPAY | PROVIDERS: PCP Internal Medicine; Visit Provider Radiology Diagnostic Radiology | DX: R22.43 Localized swelling, mass and lump, lower limb, bilateral (principal); R07.9 Chest pain, unspecified; R06.02 Shortness of breath | CPT/HCPCS: 71046; 93970 ==

== ENCOUNTER 2024-03-29 10:37 | Outpatient (AMB) | payer OTHER, SELFPAY ==
--- NOTE | 2024-03-29 10:39 | HO.NEPHOV_ITS ---
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 He recently had COVID and had been having pulmonary issues which is better now. His D Dimer was negative and USS of the LE was negative for DVT. He has not had a cardiology follow up. In the recent past, he had a renal biopsy which showed FSGS and diabetic nephropathy. His blood sugars are still running high but better. He has lost weight on Ozempic. He is tolerating Jardiance well. He was on sparsentan which has been changed to Irbesartan. He has no edema. He has not had any recent medication changes. He did not receive any IV contrast recently. [facility] Medical History Hypertension FSGS (focal segmental glomerulosclerosis) with nephrosis Chronic kidney disease, stage 3a Proteinuria Surgical History History of tonsillectomy and adenoidectomy History of prostate surgery History of back surgery Social History Alcohol intake: never Patient Tobacco Use Status: Former Tobacco user Review of Systems Const All systems reviewed & are unremarkable except as noted in HPI and below Telehealth Telehealth Telehealth Platform: Telephone Location of provider rendering services: practice address Location of patient: address on file Patient Identification confirmed using: Name, : Yes Telehealth method: voice only Patient verbally consented to treatment: Yes Patient verbally consented to billing insurance company: Yes Patient informed of any privacy concerns related to visit: No Minutes spent on Phone/Video with Pt.: 10 Results Reviewed Nephrology Results: Hgb 14.4 g/dl (14.0-18.0) 03/22/24 WBC 8.1 X10*3/uL (4.8-10.8) 03/22/24 Plt Count 237 X10*3/uL (160-400) 03/22/24 Sodium 140 mmol/L (135-145) 03/22/24 Potassium 5.0 mmol/L (3.3-5.1) 03/22/24 Chloride 105 mmol/L (96-108) 03/22/24 Carbon Dioxide 30 mmol/L (22-29) H 03/22/24 BUN 46 mg/dL (9-16) H 03/22/24 Creatinine 2.07 mg/dL (0.5-1.4) H 03/22/24 Calcium 9.4 mg/dL (8.4-10.2) 03/22/24 Urine Creatinine 58.26 mg/dL 02/17/24 Protein/Creatinin Ratio 2.06 (<0.2) H 02/17/24 Assessment & Plan Assessment & Plan (1) Chronic kidney disease, stage 3a: Code(s): N18.31 - Chronic kidney disease, stage 3a Category: Medical (2) Proteinuria: Code(s): R80.9 - Proteinuria, unspecified Category: Medical Qualifiers: Proteinuria type: other Qualified Code(s): R80.8 - Other proteinuria (3) Hypertension: Code(s): I10 - Essential (primary) hypertension Category: Medical Qualifiers: Hypertension type: secondary to other renal disorders Qualified Code(s): I15.1 - Hypertension secondary to other renal disorders (4) FSGS (focal segmental glomerulosclerosis) with nephrosis: Code(s): N04.1 - Nephrotic syndrome with focal and segmental glomerular lesions Category: Medical Plan Braden carries a diagnosis of biopsy-proven primary FSGS. He has taken immunosuppr ession in the past. He has history of prostate cancer needing surgery. He had been on sparsentan which was changed to Irbesartan( as he is not in the FSGS study anymore) . His serum creatinine has been stable. He is on Jardiance. He has no retinopathy or neuropathy. He needs to lose more weight and keeps his blood sugar under better control. He avoids nonsteroidal anti-inflammatories and maintain good hydration. I reiterated the importance of blood sugar control, lifestyle modification, weight loss and importance of monitoring potassium, renal functions and urine protein. I answered all his questions. No other prescription refills done today. Coding Level of Care Code Est Pt Level 4 (02442) Diagnoses Chronic kidney disease, stage 3a N18.31 Other proteinuria R80.8 Proteinuria type: other Hypertension secondary to other renal disorders I15.1 Hypertension type: secondary to other renal disorders FSGS (focal segmental glomerulosclerosis) with nephrosis N04.1
--- OUTSIDE RECORDS SUMMARY | 2024-03-29 11:35 | XMS_ITS ---
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 Organization [place] Address [address] [place] [address] Care Team Providers Care Peer Specialist Name Role Phone LEV OCONNELL Primary [...] Prasad AETNA PREFERRED PROVIDER ORGANIZAT ION (PPO) DWAYNE AL EMPLO YEES* Mar 02, 2023 [id number] ELIZABETH SMILEY JR PATIENT AETNA PREFERRED PROVIDER ORGANIZAT ION (PPO) FED EMPLO YEES Jan 26, 2020 [id number] ELIZABETH SMILEY JR PATIENT AETNA PREFERRED PROVIDER ORGANIZAT ION (PPO) DWAYNE AL EMPLO YEES Feb 25, 2016 [id number] [phone] ELIZABETH SMILEY JR PATIENT AETNA PREFERRED PROVIDER ORGANIZAT ION (PPO) DWAYNE AL EMPL [facility] Feb 25, 2016 [id number] ELIZABETH SMILEY JR Kendall PATIENT AETNA PREFERRED PROVIDER ORGANIZAT ION (PPO) DWAYNE AL EMPL [facility] Feb 25, 2016 [id number] ELIZABETH SMILEY PATIENT AETNA PREFERRED PROVIDER ORGANIZAT ION (PPO) DWAYNE AL EMPLO [facility] Feb 24, 2016 [id number] ELIZABETH SMILEY PATIENT AETNA PHARMACY MANAGEMENT PRESCRIPT ION DWAYNE AL EMPLO [facility] Mar 02, 2023 [id number] BALJIT BELCHERELIZABETH PATIENT AETNA PHARMACY MANAGEMENT PRESCRIPT ION [facility] Jan 26, 2020 [id number] BALJIT BELCHERELIZABETH PATIENT AETNA PHARMACY MANAGEMENT PRESCRIPT ION [facility] Feb 25, 2016 [id number] [phone] ELIZABETH SMILEY PATIENT AETNA PHARMACY MANAGEMENT PRESCRIPT ION DWAYNE AL EMPLO [facility] Feb 25, 2016 [id number] ELIZABETH SMILEY PATIENT AETNA RX PRESCRIPT ION DWAYNE AL EMPLO [facility] Feb 25, 2016 [id number] ELIZABETH SMILEY PATIENT AETNA RX PRESCRIPT ION F[facility] Feb 25, 2016 [id number] BALJIT BELCHERELIZABETH PATIENT AETNA RX PRESCRIPT ION DWAYNE AL EMPLO M[facility] Feb 25, 2016 [id number] BALJIT BELCHERELIZABETH PATIENT CIGNA POINT OF SERVICE TYMS Mar 20, 2002 [id number] BALJIT ELIZABETH PATIENT CIGNA* POINT OF SERVICE Mar 20, 2002 [id number] ELIZABETH SMILEY PATIENT Selected Encounter This section includes the information on record at [place] for the Encounter. Date/Time Encounter Type Encounter Description Reason Pro vider Source Mar 23, 2024 04:12 PM Outpatient Encounter TELEPHONE CASE MANAGEMENT IHE Encounter Template Text not used by [place] Plan of Treatment: Future Appointments (+ 6 months) and Future Tests (+/- 45 days) The Plan of Treatment section includes future care activities for the patient from all [place] [facility]. This section includes future appointments and future orders which are active, pending or scheduled. Future Appointments This section includes appointments that were scheduled to occur 6 months from the date of the Encounter, up to a maximum of 20 appointments. The data comes from all [place] treatment facilities. Appointment Date/Time Appointment Type Appointme nt Facility Name Mar 30, 2024 01:00 PM AM[place]ULAT[facility] - [facility]INE [place] [facility] Apr 26, 2024 01:30 PM [facility] Jun 10, 2024 02:30 PM AMBULATORY - MEDICINE [place] C [facility] Active, Pending, and Scheduled Orders This section includes a listing of several types of active, pending, and scheduled orders, including clinic medications orders, diagnostic test orders, procedure orders and consult orders; where the start date of the order is 45 days before the date of the Encounter or 45 days after the date of theEncounter. The data comes from all [place] treatment [facility]. Test Date/Time Test Type Test Details Facility Name Feb 24, 2024 07:33 AM Consult Order COMMUNITY CARE-NEPHROLOGY [facility] Broker[employer] Choice [place] Mar 04, 2024 11:41 AM Consult Order PHYSICAL T HERAPY/NHM OUTPT [facility] CN[facility]L [facility] Mar 26, 2024 11:15 AM Consult Order CARDIOLOGY ONE [facility] Investment Broker's [facility] Lab Results: +/- 30 days of the [...] Result - Unit Interpretation Reference Range Comment Mar 11, 2024 11:22 AM [place] HEMOGLOBIN A1C PANEL Specimen Type: BLOOD Comment: Values obtained from A1C measurements can vary. For atypical A1C assays, a reported value of 7.0 could actually be between 6.72 and 7.28 if measured by a reference method. A reported value of 9.0 could actually be between 8.73 and 9.27. Ref: http://www.ngs p.org/CAPdata. asp Ordering Provider: LEV LIZAMA Report Released Date/Time: Sep 06, 2023 03:38 PM Reporting Lab: [facility] [address] [address] Performing Lab: [facility] [address] [address] HEMOGLOBIN A1C 7.7 H 4.0-5.6 Mar 11, 2024 11:22 AM [place] LIPID PANEL FASTING Specimen Type: SERUM No comment entered. Ordering Provider: LEV LIZAMA Report Released Date/Time: Sep 06, 2023 03:38 PM Reporting Lab: [facility] [address] [address] Performing Lab: [facility] [address] [address] CHOLESTEROL 166 mg/dL TRIGLYCERIDE 137 mg/dL 0-150 LDL calculated 109 mg/dL 0-129 CHOL/HDL 5.5 HDL CHOLESTEROL 30 mg/dL L 40-60 Mar 11, 2024 11:22 AM [place] TSH Specimen Type: SERUM No comment entered. Ordering Provider: LEV LIZAMA Report Released Date/Time: Sep 06, 2023 03:38 PM Reporting Lab: [facility]ITALRL TRN [facility]ITALUSETS [address] [address] Performing Lab: [facility]ITALRL W[facility]N [facility]ITAL[facility] [address] [address] TSH 2.32 u[IU]/mL 0.35-5.00 Mar 11, 2024 11:22 AM [place] LIVER FUNCTION Specimen Type: SERUM No comment entered. Ordering Provider: LEV LIZAMA Report Released Date/Time: Sep 06, 2023 03:38 PM Reporting Lab: [facility]ITALRNOR[facility] INFIRMARYTRN [facility]ITALUSE[address] [address] Performing Lab: [facility]USE[address] [address] PROTEIN,TOTAL 6.6 g/dL 6.0-8.3 ALBUMIN 3.7 g/dL 3.5-5.0 ALKALINE PHOSPHATASE 51 U/L 40-150 AST 18 U/L 5-34 ALT 29 U/L BILIRUBIN, TOTAL 0.4 mg/dL 0.2-1.2 Mar 11, 2024 11:22 AM [place] BASIC METABOLIC PANEL (fasting) Specime n Type: SERUM No comment entered. Ordering Provider: LEV LIZAMA Report Released Date/Time: Sep 06, 2023 03:38 PM Reporting Lab: [address] [address] Performing Lab: [address] [address] UREA NITROGEN 40 mg/dL H 7-25 GLUCOSE 133 mg/dL H 65-100 SODIUM 138 mmol/L 135-145 POTASSIUM 5.2 mmol/L H 3.5-5.0 CHLORIDE 103 mmol/L 100-110 CO2 26 meq/L 20-30 CREATININE, Serum 2.34 mg/dL H 0.50-1.40 eGFR(CKD-EPI 2020) 30 mL/min L >60 Mar 11, 2024 11:22 AM [place] MICROALBUMIN CREATININE RATIO PANEL Spe cimen Type: URINE No comment entered. Ordering Provider: LEV LIZAMA Report Released Date/Time: Sep 06, 2023 03:38 PM Reporting Lab: [address] [address] Performing Lab: [address] [address] MICROALBUMIN/C REATININE RATIO 868.1 mg/g H 0-29.9 MICROALBUMIN,Q UANTITATIVE 77.3 mg/dL RR UNAVAIL CREATININE URINE 89.04 mg/dL Mar 11, 2024 11:22 AM [place] CBC AND DIFF (AUTO) Specimen Type: BLOOD No comment entered. Ordering Provider: LEV LIZAMA Report Released Date/Time: Sep 06, 2023 03:38 PM Reporting Lab: [address] [place] [address] Performing Lab: [facility] [address] [address] WBC 4.83 10*3/uL 4.50-11.00 RBC 5.19 10*6/uL 4.23-5.66 HGB 15.1 g/dL 12.8-17 HCT 44.8 39.2-50.4 MCV 86.3 fL 82-99 MCHC 33.7 g/dL 30.8-35.1 PLT 256 10*3/uL 140-360 RDW-CV 12.6 12.0-16.0 MONO, ABS 0.49 10*3/uL 0.30-1.10 MCH 29.1 pg 26.2-32.6 NEUT % 65.9 43.7-75.8 LYMPH % 18.8 14.0-42.3 MONO % 10.1 5.1-13.7 EOS % 4.8 0.4-6.8 BASO % 0.2 0.1-2.0 NEUT, ABS 3.18 10*3/uL 2.20-7.60 LYMPH, ABS 0.91 10*3/uL L 1.00-3.20 EOS, ABS 0.23 10*3/uL 0.03-0.44 BASO, ABS 0.01 10*3/uL 0.01-0.13 IMMATURE GRAN % 0.2 0.0-0.7 IMMATURE GRAN, ABS 0.01 10*3/uL 0.00-0.06 NRBC % 0.0 0.0-0.0 NRBC, [...] 18, 2023 02:31 PM [place]-TOBACCO FORMER USER [facility] Tobacco Use History This section includes a history of the smoking, or tobacco-related health factors, that were collected on or before the date of the Encounter. The data comes from the [place] facility where the Encounter took place. Date/Time Smoking Status/Tobacco Use Comment F acility Feb 18, 2023 02:31 PM [place]-TOBACCO QUIT 15 YRS OR MORE [place] [facility] Dec 31, 2021 01:00 PM VA-TOBACCO FORMER USER [place] CNT [facility] Dec 31, 2021 01:00 PM VA-TOBACCO QUIT 15 YRS OR MORE [facility] Advance Directives: All historical and current Section [...] July 02, 2022 ADVANCE DIRECTIVE SANDRA BROOKS [facility] Aug 07, 2021 ADVANCE DIRECTIVE RADHA SAHA [facility] Nov 28, 2020 ADVANCE DIRECTIVE GOLDIE DUTTA [facility] Encounter Notes: All associated encounter notes This section contains the clinical notes associated to the Encounter. Date/Time Encounter Note(s) Provider Source Mar 24, 2024 08:25 AM ADDENDUM: LOCAL TITLE: Addendum STANDARD TITLE: ADDENDUM DATE OF NOTE: MAR 24, 2024@08:25:44 ENTRY DATE: MAR 24, 2024@08:25:44 AUTHOR: BESSIE WALLACE EXP COSIGNER: URGENCY: STATUS: COMPLETED Team: please request the ED record including aimaging and lab studies. Thank you. /bienvenido/ BESSIE WALLACE NP NURSE PRACTITIONER Signed: 03/24/2024 08:26 Receipt Acknowledged By: 03/24/2024 08:29 /bienvenido/ MAXIMO HOFFMAN LPN LPN 03/24/2024 13:41 /bienvenido/ STEVEN DIAL RN REGISTERED NURSE 03/25/2024 08:47 /bienvenido/ SANDRA BROOKS AMSA === --- Original Document --- 03/23/24 SECURITY INSTALLATION SALES TECHNICIAN/OCC/HOSPITAL NOTIFICATION NOTE: Per [place] MEdical case management department, the presented to the ED on 03/22/24 by urgent care for evaluation of heavy chest, SOB, ? PE. discharged home the same day from the ED. /bienvenido/ Nora MACKAY,RN,[facility] TRANSFER/TRAVELING COORDINATOR Signed: 03/23/2024 16:13 Receipt Acknowledged By: 03/24/2024 08:15 /bashir WINSTON [facility] 03/24/2024 08:25 /bienvenido/ BESSIE WALLACE NP NURSE PRACTITIONER for LEV OCONNELL 03/24/2024 13:41 /bienvenido/ STEVEN DIAL RN REGISTERED NURSE BESSIE WALLACE [facility] Mar 23, 2024 04:12 PM TRANSFER SUMMARIZA TION NOTE: LOCAL TITLE: SECURITY INSTALLATION SALES TECHNICIAN/OCC/HOSPITAL NOTIFICATION NOTE STANDARD TITLE: TRANSFER SUMMARIZATION NOTE DATE OF NOTE: MAR 23, 2024@16:12 ENTRY DATE: MAR 23, 2024@16:12:51 AUTHOR: NORA THAKUR EXP COSIGNER: URGENCY: STATUS: COMPLETED SECURITY INSTALLATION SALES TECHNICIAN/OCC/HOSPITAL NOTIFICATION NOTE Has ADDENDA Per [place] MEdical case management department, the [place] presented to the ED on 03/22/24 by urgent care for evaluation of heavy chest, SOB, ? PE. discharged home the same day from the ED. /bashir MACKAY,RN,[facility] TRANSFER/TRAVELING COORDINATOR Signed: 03/23/2024 16:13 Receipt Acknowledged By: 03/24/2024 08:15 /bashir MENESES 03/24/2024 08:25 /bashir WALLACE NP NURSE PRACTITIONER for ELAYNEBENSON Tulio OCONNELL 03/24/2024 13:41 /bienvenido/ STEVEN DIAL RN REGISTERED NURSE 03/24/2024 ADDENDUM STATUS: COMPLETED Team: please request the ED record including aimaging and lab studies. Thank you. /bienvenido/ BESSIE WALLACE NP NURSE PRACTITIONER Signed: 03/24/2024 08:26 Receipt Acknowledged By: 03/24/2024 08:29 /es/ MAXIMO HOFFMAN LPN LPN 03/24/2024 13:41 /es/ STEVEN DIAL RN REGISTERED NURSE 03/25/2024 08:47 /es/ SANDRA MENESES 03/25/2024 ADDENDUM STATUS: COMPLETED Records requested from [facility] directed /bienvenido/ SANDRA MENESES Signed: 03/25/2024 08:48 03/25/2024 ADDENDUM STATUS: COMPLETED Records received, sent to [facility] /bienvenido/ Idalmis Martinez RN Registered Nurse (RN) Signed: 03/25/2024 10:54 NORA THAKUR CNTRL W[facility]
--- OUTSIDE RECORDS SUMMARY | 2024-03-29 11:35 | XMS_ITS ---
Author Organization [facility] Address [address] [place] [address] Care Team Providers Care Rotating Equipment Specialist Name Role Phone Dylan Cat Primary Care Provider Unavailable Cass Lugo [phone] Encounters Encounter Location Date Provider Diagnosis [address] [address] 06/05/2023 Cass Lugo Plan Of Treatment Next Appt Details Provider Name:Cass Lugo , 06/24/2024 02:00:00 PM, [address] [place] [address], [phone], Progress Notes * Major SMILEY JrDOB: (64 yo M)Acc No.[id number]:06/05/2023 Progress Note Patient:?Major SMILEY Provider:?Cass Lugo DPM [...] Lugo DPM Date:?2023 Generated for Oumou vásquez/Damian/Ayan on:?03/29/2024 10:26 AM EST
--- OUTSIDE RECORDS SUMMARY | 2024-03-29 11:36 | XMS_ITS | Encounter Summary ---
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 [place] Organization [facility] Address [address] [place] [address] Care Team Providers Care Plant And Instrument Engineer Name Role Phone LEV OCONNELL Primary Care [...] DWAYNE AL EMPLO YEES* Mar 02, 2023 [id number] [phone] ELIZABETH SMILEY JR PATIENT AETNA PREFERRED PROVIDER ORGANIZAT ION (PPO) FED EMPLO YEES Jan 26, 2020 [id number] ELIZABETH SMILEY JR PATIENT AETNA PREFERRED PROVIDER ORGANIZAT ION (PPO) DWAYNE AL EMPLO YEES Feb 25, 2016 [id number] [phone] ELIZABETH SMILEY JR PATIENT AETNA PREFERRED PROVIDER ORGANIZAT ION (PPO) DWAYNE AL EMPL [facility] Feb 25, 2016 [id number] BALJIT BELCHERELIZABETH Kendall PATIENT AETNA PREFERRED PROVIDER ORGANIZAT ION (PPO) DWAYNE AL EMPL [facility] Feb 25, 2016 [id number] ELIZABETH SMILEY PATIENT AETNA PREFERRED PROVIDER ORGANIZAT ION (PPO) DWAYNE AL EMPLO [facility] Feb 24, 2016 [id number] ELIZABETH SMILEY PATIENT AETNA PHARMACY MANAGEMENT PRESCRIPT ION DWAYNE AL EMPLO [facility] Mar 02, 2023 [id number] BALJIT BELCHERELIZABETH PATIENT AETNA PHARMACY MANAGEMENT PRESCRIPT ION [facility]O [facility] Jan 26, 2020 [id number] BALJIT BELCHERELIZABETH PATIENT AETNA PHARMACY MANAGEMENT PRESCRIPT ION [facility] Feb 25, 2016 [id number] [phone] ELIZABETH SMILEY PATIENT AETNA PHARMACY MANAGEMENT PRESCRIPT ION DWAYNE AL EMPLO [facility] Feb 25, 2016 [id number] ELIZABETH SMILEY PATIENT AETNA RX PRESCRIPT ION [facility] Feb 25, 2016 [id number] ELIZABETH SMILEY PATIENT AETNA RX PRESCRIPT ION [facility] Feb 25, 2016 [id number] BALJIT BELCHERELIZABETH PATIENT AETNA RX PRESCRIPT ION [facility]O [facility] Feb 25, 2016 [id number] BALJIT BELCHERELIZABETH PATIENT [employer] POINT OF SERVICE TYCO Mar 20, 2002 [id number] BALJIT ELIZABETH PATIENT CIGNA* POINT OF SERVICE Mar 20, 2002 [id number] ELIZABETH SMILEY PATIENT Selected Encounter This section includes the information on record at [place] for the Encounter. Date/Time Encounter Type Encounter Description Reason Pro vider Source Mar 03, 2024 11:27 AM Outpatient Encounter PAIN CLINIC IHE Encounter Template Text not used by [place] Plan of Treatment: Future Appointments (+ 6 months) and Future Tests (+/- 45 days) The Plan of Treatment section includes future care activities for the patient from all [place] [facility] This section includes future appointments and future orders which are active, pending or scheduled. Future Appointments This section includes appointments that were scheduled to occur 6 months from the date of the Encounter, up to a maximum of 20 appointments. The data comes from all [place] treatment facilities. Appointment Date/Time Appointment Type Appointme nt Facility Name Mar 04, 2024 10:15 AM AMBULATORY - MEDICINE [facility] Mar 30, 2024 01:00 PM AMBULATORY - MEDICINE [facility]TR [facility] [place] [facility] Apr 26, 2024 01:30 PM AMBULATORY - MEDICINE [facility] Jun 10, 2024 02:30 PM AMBULATORY - MEDICINE [facility] Active, Pending, and Scheduled Orders This section includes a listing of several types of active, pending, and scheduled orders, including clinic medications orders, diagnostic test orders, procedure orders and consult orders; where the start date of the order is 45 days before the date of the Encounter or 45 days after the date of theEncounter. The data comes from all [facility]. Test Date/Time Test Type Test Details Facility Name Feb 24, 2024 07:33 AM Consult Order COMMUNITY CARE-NEPHROLOGY [facility] Mar 04, 2024 11:41 AM Consult Order PHYSICAL T HERAPY/[facility] OUTPT [facility] [place] [facility] Mar 26, 2024 11:15 AM Consult Order CARDIOLOGY ONE Cons Bin [facility] Lab Results: +/- 30 days of the encounter This section includes the Chemistry and Hematology Lab Results on record with [place] for the patient. Radiology Reports and Pathology Reports are provided separately, in subsequent sections. Lab Results This section contains the Chemistry/Hematology Results that were resulted 30 days before or 30 daysafter the date of the Encounter. Date/Time Source Result Type Result - Unit Interpretation Reference Range Comment Mar 11, 2024 11:22 AM [place] HEMOGLOBIN A1C PANEL Specimen Type: BLOOD Comment: [...] Sep 06, 2023 03:38 PM Reporting Lab: [facility]TRN [facility]USETS [address] [address] Performing Lab: [facility]RL W[facility]N [facility] [address] [address] HEMOGLOBIN A1C 7.7 H 4.0-5.6 Mar 11, 2024 11:22 AM [place] LIPID PANEL FASTING Specimen Type: SERUM No comment entered. Ordering Provider: LEV LIZAMA Report Released Date/Time: Sep 06, 2023 03:38 PM Reporting Lab: [facility]ITALRTHOMASV[facility] CENTERTRN [facility]ITALCHUSETS [address] [address] Performing Lab: [facility]ITALRTHOMASV[facility] CENTERTRN [facility]ITALUSETS [address] [address] CHOLESTEROL 166 mg/dL TRIGLYCERIDE 137 mg/dL 0-150 LDL calculated 109 mg/dL 0-129 CHOL/HDL 5.5 HDL CHOLESTEROL 30 mg/dL L 40-60 Mar 11, 2024 11:22 AM [place] TSH Specimen Type: SERUM No comment entered. Ordering Provider: LEV LIZAMA Report Released Date/Time: Sep 06, 2023 03:38 PM Reporting Lab: [facility] [place] [address] [address] Performing Lab: [facility]RL [place] [address] [address] TSH 2.32 u[IU]/mL 0.35-5.00 Mar 11, 2024 11:22 AM [place] LIVER FUNCTION Specimen Type: SERUM No comment entered. Ordering Provider: LEV LIZAMA Report Released Date/Time: Sep 06, 2023 03:38 PM Reporting Lab: [facility] WSTRN [facility]ITALUSETS [address] [address] Performing Lab: [address] [address] PROTEIN,TOTAL 6.6 g/dL 6.0-8.3 ALBUMIN 3.7 g/dL 3.5-5.0 ALKALINE PHOSPHATASE 51 U/L 40-150 AST 18 U/L 5-34 ALT 29 U/L BILIRUBIN, TOTAL 0.4 mg/dL 0.2-1.2 Mar 11, 2024 11:22 AM [place] BASIC METABOLIC PANEL (fasting) Specime n Type: SERUM No comment entered. Ordering Provider: LEV LIZAMA Report Released Date/Time: Sep 06, 2023 03:38 PM Reporting Lab: [address] [address] Performing Lab: [address] [address] UREA NITROGEN 40 mg/dL H 7-25 GLUCOSE 133 mg/dL H 65-100 SODIUM 138 mmol/L 135-145 POTASSIUM 5.2 mmol/L H 3.5-5.0 CHLORIDE 103 mmol/L 100-110 CO2 26 meq/L 20-30 CREATININE, Serum 2.34 mg/dL H 0.50-1.40 eGFR(CKD-EPI 2020) 30 mL/min L >60 Mar 11, 2024 11:22 AM [place] MICROALBUMIN CREATININE RATIO PANEL Spe cimen Type: URINE No comment entered. Ordering Provider: LEV LIZAMA Report Released Date/Time: Sep 06, 2023 03:38 PM Reporting Lab: [address] [address] Performing Lab: [address] [address] MICROALBUMIN/C REATININE RATIO 868.1 mg/g H 0-29.9 MICROALBUMIN,Q UANTITATIVE 77.3 mg/dL RR UNAVAIL CREATININE URINE 89.04 mg/dL Mar 11, 2024 11:22 AM [place] CBC AND DIFF (AUTO) Specimen Type: BLOOD No comment entered. Ordering Provider: LEV LIZAMA Report Released Date/Time: Sep 06, 2023 03:38 PM Reporting Lab: [facility] [address] [address] Performing Lab: [facility] [address] [address] WBC 4.83 10*3/uL 4.50-11.00 RBC 5.19 10*6/uL [...] 18, 2023 02:31 PM VA-TOBACCO FORMER USER [facility] Tobacco Use History This section includes a history of the smoking, or tobacco-related health factors, that were collected on or before the date of the Encounter. The data comes from the [place] facility where the Encounter took place. Date/Time Smoking Status/Tobacco Use Comment F acility Feb 18, 2023 02:31 PM VA-TOBACCO QUIT 15 YRS OR MORE [facility] Dec 31, 2021 01:00 PM VA-TOBACCO FORMER USER [facility] Dec 31, 2021 01:00 PM [place]-TO[place]ACCO QUIT 15 YRS OR MORE [facility] Advance Directives: All historical and current [...] ADVANCE DIRECTIVE GOLDIE DUTTA [facility] Encounter Notes: All associated encounter notes This section contains the clinical notes associated to the Encounter. Date/Time Encounter Note(s) Provider Source Mar 03, 2024 11:27 AM TELEPHONE ENCOUNTE R NOTE: LOCAL TITLE: TELEPHONE NOTE/SPECIALTY CLINIC STANDARD TITLE: TELEPHONE ENCOUNTER NOTE DATE OF NOTE: MAR 03, 2024@11:27 ENTRY DATE: MAR 03, 2024@11:27:41 AUTHOR: IDA WILSON EXP COSIGNER: URGENCY: STATUS: COMPLETED Called and spoke with pt to remind them that they have a FTF appt with the Pain clinic on 03/04/2024 at 1015am. New location was confirmed /bienvenido/ IDA WILSON ADVANCED CHAIR CAR ATTENDANT Signed: 03/03/2024 11:29 IDA WILSON [facility]
--- OUTSIDE RECORDS SUMMARY | 2024-03-29 11:36 | XMS_ITS | Encounter Summary ---
Author Organization [facility] Address [address] [place] [address] Care Team Providers Care Certified Caregiver Name Role Phone Unavailable Primary Care Provider Unavailabl e Encounter Details Date Type Department Care Team (Late st Contact Info) Description 08/30/2021 Scanned [address] [address] Podiatry, Scan Social History Tobacco [...]
--- OUTSIDE RECORDS SUMMARY | 2024-03-29 11:36 | XMS_ITS | Continuity of Care Document ---
Author Name [facility] Organization [facility] Care Team Providers [employer] Salesperson Name Role Phone [facility] Unavailable Unavailable Problems Combined list of problems [...] and right foramenectomy 10/08/16 Dr. Bobby Van [facility] Allergic rhinitis Active Condition Au g 2011 Entered By: CESAR ROD Comment: on allergy injections since 2010 SARAH Anemia (SCT 735636989) Active Condition SARAH Benign essential hypertension (SNOMED CT 3211281) Active Condition SARAH Chronic kidney disease stage 4 Active Condition [facility] Constipation Active Condition [facility] Cramp in lower leg Active Condition [facility] Diabetes mellitus type 2 without retinopathy (SNOMED CT 2489453534868) Active Condition Nov 26 07 Entered By: KAYDEN CHESTER Comment: ANAM done 11/23/06 [place] [facility] No DM retinopathy SARAH Erectile Dysfunction (SCT 138878312) Active Condition [place] [facility] Focal glomerulonephritis (SNOMED CT 09599238) Active Condition Nov 13, 2006 Entered By: KAYDEN CHESTER Comment: focal segmental glomerulosclerosis Dr. Lenz [facility]2007 Entered By: KAYDEN CHESTER Comment: Proteinuria [facility] Hyperlipidemia (SNOMED CT 33453279) Active Condition [facility] Hypothyroid (SNOMED CT 74319211) Active Condition June 18, 2007 Entered By: KAYDEN CHESTER Comment: Dr. Morin SARAH Insomnia Active Condition [facility] ([facility]) Lumbar radiculopathy Active Condition [place] [...] 2021 on Jardiance and SPARSENTAN 400mg daily SARAH Obesity (SNOMED CT 442870284) Active Condition [facility] Obstructive sleep apnea syndrome Active Condition Aug 17, 2022 Entered By: Adriane OCONNELL Comment: 2022 sleep study moderate LYN, AHI 26- on CPAP [facility] [place] [facility] PROSTATE, MALIGN NEOPLASM Active Condition SARAH RHINITIS DUE TO POLLEN Active Condition [facility] Screening for Malignant Neoplasms of colon Active Condition Sep 23, 2011 Entered By: CESAR ROD Comment: 06/2011 repeat 10 yrsDec 2021 Entered By: Adriane OCONNELL Comment: 12/2021 one polyp. Repeat in 5 yearsDec 2021 Entered By: Adriane OCONNELL Comment: 01-15-22 [facility] [place] Alfredo Giordano MD Sessile serrated lesion return 5 years SARAH Diagnosis: ICD-10-CM Z46.0 Encounter for fit/adjst of [...] for immunization Active Diagnosis [facility] Diagnosis: ICD-10-CM L82.1 Other seborrheic keratosis Active Diagnosis DANIEL DYE [facility] Diagnosis: ICD-10-CM Z13.89 Encounter for screening for other disorder Active Diagnosis SARAH Diagnosis: ICD-10-CM D48.5 Neoplasm of uncertain behavior of skin Active Diagnosis SARAH Diagnosis: ICD-10-CM G47.09 Other insomnia Active Diagnosis [facility] Diagnosis: ICD-10-CM J06.9 Acute upper respiratory infection, unspecified Active Diagnosis SARAH Diagnosis: ICD-10-CM R05.9 Cough, unspecified Active Diagnosis SARAH Medications Combined list of outpatient medications from Department of Defense and Veterans Affairs facilities.Medications provided include 1) outpatient medications from the last 15 months, and 2) patient-reported medications. Medication Details Route Status Patient Instructions Prescription Expires Prescription Number Last Dispense Date Ordering Provider Order Date Order Qty Source ACETAMINOPH EN 325MG TAB TAKE ONE TABLET BY MOUTH PRN ORAL ACTIVE LUCINA WILSON 2018 [facility] AMLODIPINE BESYLATE 5MG TAB TAKE ONE TABLET BY MOUTH ONCE DAILY FOR BLOOD PRESSURE /HEART, DO NOT TAKE WITH GRAPEFRU IT JUICE ORAL ACTIVE 05/27/2024 [id number] LEV THURMAN 2023 90 [place] AMLODIPINE BESYLATE 5MG TAB TAKE ONE TABLET BY MOUTH ONCE DAILY FOR BLOOD PRESSURE /HEART, DO NOT TAKE WITH GRAPEFRU IT JUICE ORAL DISCONT INUED 05/25/2023 [id number] LEV THURMAN 2022 90 [place] AMOXICILLIN TRIHYDRATE 500MG CAP TAKE ONE CAPSULE BY MOUTH TWICE DAILY FOR INFECTIO N CAUSED BY BACTERIA ORAL 06/29/2023 [id number] Frederic EDGE 2023 20 [place] ASPIRIN 81MG TAB,EC TAKE ONE TABLET BY MOUTH ONCE DAILY ORAL ACTIVE LUCINA WILSON 2018 [facility] ATORVASTATI N CA 80MG TAB TAKE ONE-HALF TABLET BY MOUTH ONCE DAILY FOR CHOLESTE ROL ORAL ACTIVE 08/18/2024 [id number] LEV THURMAN 2023 45 [place] ATORVASTATI N CA 80MG TAB TAKE ONE-HALF TABLET BY MOUTH ONCE DAILY FOR CHOLESTE ROL ORAL DISCONT INUED 11/19/2023 [id number] LEV THURMAN 2022 45 [place] BACLOFEN 10MG TAB TAKE ONE TABLET BY MOUTH THREE TIMES A DAY FOR MUSCLE RIGIDITY (REPLACE S CYCLOBEN ZAPRINE) ORAL ACTIVE 01/30/2025 [id number] LEV THURMAN M 2023 270 [place] BACLOFEN 10MG TAB TAKE ONE TABLET BY MOUTH THREE TIMES A DAY FOR MUSCLE RIGIDITY (REPLACE S CYCLOBEN ZAPRINE) ORAL DISCONT INUED 02/19/2024 [id number] VIJAYA DELVALLE 2023 270 [place] CARBOXYMETH YLCELLULOSE NA 0.5% SOLN,OPH INSTILL 1 DROP INTO EACH EYE FOUR TIMES A DAY FOR DRY EYE OPHTHA LMIC ACTIVE 01/13/2025 [id number] NGUYEN,LAC EY J 2023 45 [facility] CARBOXYMETH YLCELLULOSE NA 0.5% SOLN,OPH INSTILL 1 DROP INTO EACH EYE FOUR TIMES A DAY FOR DRY EYE OPHTHA LMIC DISCONT INUED 01/08/2024 [id number] NGUYEN,LAC EY J 2022 45 [facility] CHOLECALCIF FADI 25MCG (1,000UNIT) TAB TAKE ONE TABLET BY MOUTH ONCE DAILY FOR VITAMIN SUPPLEME NTATION ORAL ACTIVE 01/30/2025 [id number] 5 LEV THURMAN 2024 100 [place] CHOLECALCIF FADI 25MCG (1,000UNIT) TAB TAKE ONE TABLET BY MOUTH ONCE DAILY FOR VITAMIN SUPPLEME NTATION ORAL DISCONT INUED 03/06/2024 [id number] LEV THURMAN 2023 100 [place] CLONAZEPAM 0.5MG TAB TAKE ONE TABLET BY MOUTH THREE TIMES DAILY NEEDED FOR PANIC DISORDER ORAL ACTIVE 07/04/2024 [id number] Mica WALLACE 2023 90 [place] CLONAZEPAM 0.5MG TAB TAKE ONE TABLET BY MOUTH THREE TIMES A DAY ORAL DISCONT INUED 01/03/2024 [id number] LEV THURMAN 2023 90 [place] CLONAZEPAM 0.5MG TAB TAKE ONE TABLET BY MOUTH THREE TIMES A DAY ORAL DISCONT INUED 06/27/2023 [id number] MATTHEW ESQUIVEL 2022 90 [facility] DEXTROMETHO RPHAN HBR 10MG/GUAIFE NESIN 100MG/5ML (AF & SF) LIQUID TAKE 10 MLS BY MOUTH EVERY 6 HOURS NEEDED FOR COUGH ORAL 06/29/2023 [id number] Frederic EDGE 2023 120 [place] DOXYCYCLINE HYCLATE 100MG TAB TAKE ONE TABLET BY MOUTH TWICE DAILY LIMIT SUN EXPOSURE ORAL ACTIVE 04/10/2024 [id number] HENRYNEWTON 2024 20 [place] EMPAGLIFLOZ IN 10MG TAB TAKE ONE TABLET BY MOUTH ONCE DAILY FOR DIABETES ORAL HOLD 08/11/2024 [id number] Puma COLEMAN 2023 90 [place] EMPAGLIFLOZ IN 10MG TAB TAKE ONE TABLET BY MOUTH ONCE DAILY FOR DIABETES ORAL DISCONT INUED 05/21/2024 [id number] LEV THURMAN 2023 90 [place] EMPAGLIFLOZ IN 10MG TAB TAKE ONE TABLET BY MOUTH ONCE DAILY FOR DIABETES ORAL DISCONT INUED 12/25/2023 [id number] LEV THURMAN 2022 90 [facility] EMPAGLIFLOZ IN 25MG TAB TAKE ONE TABLET BY MOUTH ONCE DAILY ORAL ACTIVE 11/26/2024 [id number] JOSE BAHI 2023 90 [facility] [place] FISH OIL 1000MG (500MG DHA/EPA) CAP,ORAL TAKE 1 CAPSULE BY MOUTH TWICE DAILY ORAL ACTIVE LEV THURMAN 2021 [facility] [place] FLUTICASONE PROPIONATE 50MCG/SPRAY SOLN,NASAL, 16GM INSTILL 1 SPRAY INTO EACH NOSTRIL ONCE DAILY FOR NASAL IRRITATI ON/INFLA MMATION NASAL ACTIVE 01/30/2025 [id number] LEV THURMAN 2023 1 [facility] [place] IRBESARTAN 300MG TAB TAKE ONE TABLET BY MOUTH ONCE DAILY FOR HIGH BLOOD PRESSURE ORAL ACTIVE 09/04/2024 [id number] LEV THURMAN 2023 90 [facility] IRBESARTAN 300MG TAB TAKE ONE TABLET BY MOUTH ONCE DAILY FOR HIGH BLOOD PRESSURE ORAL DISCONT INUED 05/05/2024 [id number] LEV THURMAN 2023 90 [facility] [place] LEVOTHYROXI NE NA 100MCG TAB (SYNTHROID) TAKE TWO TABLETS BY MOUTH SUN, MON, TUE, MALCOM, FRI, and SAT AND TAKE ONE TABLET ON FOR THYROID - TAKE ON AN EMPTY STOMACH WITH A FULL GLASS OF WATER ORAL ACTIVE 10/06/2024 [id number] Mica WALLACE 2023 180 [place] LEVOTHYROXI NE NA 100MCG TAB (SYNTHROID) TAKE TWO TABLETS BY MOUTH SUN, MON, TUE, MALCOM, FRI, and SAT AND TAKE ONE TABLET ON FOR THYROID - TAKE ON AN EMPTY STOMACH WITH A FULL GLASS OF WATER ORAL DISCONT INUED 02/19/2024 [id number] VIJAYA DELVALLE ROSSY 2023 180 [place] MAGNESIUM OXIDE 250MG TAB TAKE TWO TABLETS BY MOUTH ONCE DAILY ORAL ACTIVE Puma COLEMAN A 2022 [place] MINERAL OIL,LIGHT/P ETROLATUM (PF) OINT,OPH APPLY THIN RIBBON INTO EACH EYE AT BEDTIME FOR DRY EYE OPHTHA LMIC 01/08/2024 [id number] NGUYEN,LAC EY J 2022 3 [facility] SEMAGLUTIDE 0.25MG/0.37 5ML INJ,SOLN,PE N,3ML INJECT 0.5MG SUBCUTAN EOUSLY ONCE A WEEK SUBCUT ANEOUS DISCONT INUED 03/06/2024 [id number] LEV THURMAN 2023 1 [place] SEMAGLUTIDE 0.25MG/0.37 5ML INJ,SOLN,PE N,3ML INJECT 0.5MG SUBCUTAN EOUSLY ONCE A WEEK SUBCUT ANEOUS DISCONT INUED (EDIT) 07/31/2023 [id number] JADEN ESCOBAR 2023 1 [place] SEMAGLUTIDE 0.25MG/0.37 5ML INJ,SOLN,PE N,3ML INJECT 0.5MG SUBCUTAN EOUSLY ONCE A WEEK SUBCUT ANEOUS DISCONT INUED 10/19/2023 [id number] Puma COLEMAN 2022 2 [place] SEMAGLUTIDE 1MG/0.75ML INJ,SOLN,PE N,3ML INJECT 1MG SUBCUTAN EOUSLY ONCE A WEEK FOR TYPE 2 DIABETES MELLITUS SUBCUT ANEOUS DISCONT INUED BY PROVIDE R 07/02/2024 [id number] LEV THURMAN 2023 1 [place] SEMAGLUTIDE 1MG/0.75ML INJ,SOLN,PE N,3ML INJECT 1MG SUBCUTAN EOUSLY ONCE A WEEK SUBCUT ANEOUS DISCONT INUED (EDIT) 07/31/2023 [id number] LUZJADEN HOLMAN 2023 1 [place] SEMAGLUTIDE 2MG/0.75ML INJ,SOLN,PE N,3ML INJECT 2MG SUBCUTAN EOUSLY ONCE A WEEK FOR TYPE 2 DIABETES MELLITUS SUBCUT ANEOUS ACTIVE 01/12/2025 [id number] LEV THURMAN 2023 2 [facility] Allergies, Adverse Reactions, Alerts Combined list of allergies from Department of Defense and Veterans Affairs facilities. It does not include entries that were removed or entered in error. Substance Category Reaction Severity Reaction type Status Date Reported Comments Source KETOROLAC TROMETHAMINE Propensity to adverse reactions to drug (finding) active 7 [facility] LOVASTATIN Propensity to adverse reactions to drug (finding) active 2 [facility] NONSTEROIDAL ANTI-INFLAMM ATORY Propensity to adverse reactions to drug (finding) Renal impairment active 8 [facility] NONSTEROIDAL ANTI-INFLAMM ATORY Propensity to adverse reactions to drug (finding) active 3 [facility] SPIRONOLACTO NE Propensity to adverse reactions to drug (finding) Swelling active 9 [facility] Immunizations Combined list of available immunizations from the Department of Defense and Veterans Affairs facilities. Immunization Series Date Given Administered By Site Reaction Lot Number CVX Code Drug Pathology Laboratory Technologist Status Comments Source INFLUENZA, SPLIT VIRUS, TRIVALENT, PF 2023 SANJIV AMADO LEFT DELTO ID [id number] 140 complet ed [facility] INFLUENZA, INJECTABLE, QUADRIVALENT, PRESERVATIVE FREE 2022 TAI STANTON RIGHT DELTO ID [id number] 150 complet ed [place] ZOSTER RECOMBINANT 2 2022 ANGE LEWIS LEFT ARM [id number] 187 complet ed [id number] 01/10/23 [place] COVID-19 (MODERNA), MRNA, LNP-S, BIVALENT BOOSTER, PF, 50 MCG/0.5 ML OR 25MCG/0.25 ML DOSE 1 2021 JOSE MCNALLY LEFT DELTO ID [id number] 229 complet ed [place] ZOSTER RECOMBINANT 1 2021 187 complet ed [facility] INFLUENZA, UNSPECIFIED FORMULATION 2021 88 complet ed [facility] COVID-19 (PFIZER), MRNA, LNP-S, PF, 30 MCG/0.3 ML DOSE 2 2020 208 complet ed [facility] COVID-19 (PFIZER), MRNA, LNP-S, PF, 30 MCG/0.3 ML DOSE 1 2020 208 complet ed [facility] INFLUENZA, UNSPECIFIED FORMULATION 2020 88 complet ed [facility] TDAP 2020 115 complet ed [place] INFLUENZA, INJECTABLE, QUADRIVALENT, PRESERVATIVE FREE 2019 150 complet ed [place] INFLUENZA, INJECTABLE, MDCK, PRESERVATIVE FREE, QUADRIVALENT 2018 171 complet ed Partner: [facility]. Administe red by: RADHA MONROE (MCP=[phone] [id number]). Partner 2 Lot#: [id number] Mfr: SEQIRUS; Dosage: 0.5 [facility] INFLUENZA, SEASONAL, INJECTABLE 2018 141 complet ed [facility] [place] INFLUENZA, SEASONAL, INJECTABLE 2017 141 complet ed [...] 2014 43 complet ed 6 month, BMP [facility] ZOSTER (HISTORICAL) 2013 121 complet ed [place] HEP B, ADULT 2 2013 43 complet ed [facility] FLU,3 YRS (HISTORICAL) 2013 88 complet ed Site: Right Deltoid [place] HEPATITIS B VACCINE (HISTORICAL) 2013 43 complet ed BMP Pedrito Porter [facility] PNEUMOCOCCAL CONJUGATE [...] Reference Range Date Interpretation Specimen Comments Source HEMOGLOBI N A1C PANEL HEMOGLOBIN A1C/HEMOGLO BIN.TOTAL IN BLOOD BY HPLC 7.7 4.0 - 5.6 03/11 H Specimen Type: BLOOD Comment: Values obtained from A1C measurement s can vary. For atypical A1C assays, a reported value of 7.0 could actually be between 6.72 and 7.28 if measured by a reference method. A reported value of 9.0 could actually be between 8.73 and 9.27. Ref: [email or web address] ngsp.org/[place] Pdata.asp Ordering Provider: ANYI PALMER Report Released Date/Time: Sep 06, 2023 03:38 PM Reporting Lab: [address] [address] Performing Lab: [address] [address] [place] TSH THYROTROPIN [UNITS/VOLU ME] IN SERUM OR PLASMA 2.32 u[IU]/ mL 0.35 - 5.00 03/11 Specimen Type: SERUM No comment entered. Ordering Provider: ANYI PALMER Report Released Date/Time: Sep 06, 2023 03:38 PM Reporting Lab: [address] [address] Performing Lab: [address] [address] [place] LIPID PANEL FASTING CHOLESTEROL [MASS/VOLUM E] IN SERUM OR PLASMA 166 mg/dL 03/11 Specimen Type: SERUM No comment entered. Ordering Provider: ANYI PALMER Report Released Date/Time: Sep 06, 2023 03:38 PM Reporting Lab: [address] [address] Performing Lab: [address] [place] [address] [place] LIPID PANEL FASTING TRIGLYCERID E [MASS/VOLUM E] IN SERUM OR PLASMA 137 mg/dL 0 - 150 03/11 Specimen Type: SERUM No comment entered. Ordering Provider: ANYI PALMER Report Released Date/Time: Sep 06, 2023 03:38 PM Reporting Lab: [address] [address] Performing Lab: [address] [address] [place] LIPID PANEL FASTING CHOLESTEROL IN LDL [MASS/VOLUM E] IN SERUM OR PLASMA BY CALCULATION 109 mg/dL 0 - 129 03/11 Specimen Type: SERUM No comment entered. Ordering Provider: ANYI PALMER Report Released Date/Time: Sep 06, 2023 03:38 PM Reporting Lab: [address] [address] Performing Lab: [address] [address] [place] LIPID PANEL FASTING CHOLESTEROL .TOTAL/CHOL ESTEROL IN HDL [MASS RATIO] IN SERUM OR PLASMA 5.5 03/11 Specimen Type: SERUM No comment entered. Ordering Provider: ANYI PALMER Report Released Date/Time: Sep 06, 2023 03:38 PM Reporting Lab: [address] [address] Performing Lab: [address] [address] [place] LIPID PANEL FASTING CHOLESTEROL IN HDL [MASS/VOLUM E] IN SERUM OR PLASMA 30 mg/dL 40 - 60 03/11 L Specimen Type: SERUM No comment entered. Ordering Provider: ANYI PALMER Report Released Date/Time: Sep 06, 2023 03:38 PM Reporting Lab: [address] [address] Performing Lab: [facility] [address] [facility] [address] [place] LIVER FUNCTION PROTEIN [MASS/VOLUM E] IN SERUM OR PLASMA 6.6 g/dL 6.0 - 8.3 03/11 Specimen Type: SERUM No comment entered. Ordering Provider: ANYI PALMER Report Released Date/Time: Sep 06, 2023 03:38 PM Reporting Lab: [facility] [place] [facility] [address] [facility] [address] Performing Lab: [facility] [place] [facility] [address] [place] LIVER FUNCTION ALBUMIN [MASS/VOLUM E] IN SERUM OR PLASMA 3.7 g/dL 3.5 - 5.0 03/11 Specimen Type: SERUM No comment entered. Ordering Provider: ANYI PALMER Report Released Date/Time: Sep 06, 2023 03:38 PM Reporting Lab: [facility] [place] [facility] [address] [facility] [address] Performing Lab: [facility] [address] [address] [place] LIVER FUNCTION ALKALINE PHOSPHATASE [ENZYMATIC ACTIVITY/VO LUME] IN SERUM OR PLASMA 51 U/L 40 - 150 03/11 Specimen Type: SERUM No comment entered. Ordering Provider: ANYI PALMER Report Released Date/Time: Sep 06, 2023 03:38 PM Reporting Lab: [facility] [place] [facility] [address] Performing Lab: [facility] [address] [address] [place] LIVER FUNCTION ASPARTATE AMINOTRANSF ERASE [ENZYMATIC ACTIVITY/VO LUME] IN SERUM OR PLASMA 18 U/L 5 - 34 03/11 Specimen Type: SERUM No comment entered. Ordering Provider: ANYI PALMER Report Released Date/Time: Sep 06, 2023 03:38 PM Reporting Lab: [facility] [address] [place] [address] Performing Lab: [facility] [address] [facility] [address] [place]IVER FUNCTION ALANINE AMINOTRANSF ERASE [ENZYMATIC ACTIVITY/VO LUME] IN SERUM OR PLASMA 29 U/L 03/11 Specimen Type: SERUM No comment entered. Ordering Provider: ANYI PALMER Report Released Date/Time: Sep 06, 2023 03:38 PM Reporting Lab: [facility] [address] [address] Performing Lab: [facility] [place] [address] [address] [place] LIVER FUNCTION BILIRUBIN.T OTAL [MASS/VOLUM E] IN SERUM OR PLASMA 0.4 mg/dL 0.2 - 1.2 03/11 Specimen Type: SERUM No comment entered. Ordering Provider: ANYI PALMER Report Released Date/Time: Sep 06, 2023 03:38 PM Reporting Lab: [facility] [place] [facility] [address] Performing Lab: [facility] [address] [place] BASIC METABOLIC PANEL (fasting) UREA NITROGEN [MASS/VOLUM E] IN SERUM OR PLASMA 40 mg/dL 7 - 25 03/11 H Specimen Type: SERUM No comment entered. Ordering Provider: ANYI PALMER Report Released Date/Time: Sep 06, 2023 03:38 PM Reporting Lab: [facility] [address] Performing Lab: [facility] [place] [facility] [address] [place] BASIC METABOLIC PANEL (fasting) GLUCOSE [MASS/VOLUM E] IN SERUM OR PLASMA 133 mg/dL 65 - 100 03/11 H Specimen Type: SERUM No comment entered. Ordering Provider: ANYI PALMER Report Released Date/Time: Sep 06, 2023 03:38 PM Reporting Lab: [facility] [address] [facility] [address] Performing Lab: [facility] [address] [facility] [address] [place] BASIC METABOLIC PANEL (fasting) SODIUM [MOLES/VOLU ME] IN SERUM OR PLASMA 138 mmol/L 135 - 145 03/11 Specimen Type: SERUM No comment entered. Ordering Provider: ANYI PALMER Report Released Date/Time: Sep 06, 2023 03:38 PM Reporting Lab: [facility] [address] [facility] [address] Performing Lab: [facility] [address] [facility] [address] [place] BASIC METABOLIC PANEL (fasting) POTASSIUM [MOLES/VOLU ME] IN SERUM OR PLASMA 5.2 mmol/L 3.5 - 5.0 03/11 H Specimen Type: SERUM No comment entered. Ordering Provider: ANYI PALMER Report Released Date/Time: Sep 06, 2023 03:38 PM Reporting Lab: [facility] [address] [facility] [address] Performing Lab: [facility] [address] [facility] [address] [place] BASIC METABOLIC PANEL (fasting) CHLORIDE [MOLES/VOLU ME] IN SERUM OR PLASMA 103 mmol/L 100 - 110 03/11 Specimen Type: SERUM No comment entered. Ordering Provider: ANYI PALMER Report Released Date/Time: Sep 06, 2023 03:38 PM Reporting Lab: [facility] [address] [facility] [address] Performing Lab: [facility] [address] [facility] [address] [place] BASIC METABOLIC PANEL (fasting) CARBON DIOXIDE, TOTAL [MOLES/VOLU ME] IN SERUM OR PLASMA 26 meq/L 20 - 30 03/11 Specimen Type: SERUM No comment entered. Ordering Provider: ANYI PALMER Report Released Date/Time: Sep 06, 2023 03:38 PM Reporting Lab: [facility] [address] [address] Performing Lab: [facility] [address] [address] [place] BASIC METABOLIC PANEL (fasting) CREATININE [MASS/VOLUM E] IN SERUM OR PLASMA 2.34 mg/dL 0.50 - 1.40 03/11 H Specimen Type: SERUM No comment entered. Ordering Provider: ANYI PALMER Report Released Date/Time: Sep 06, 2023 03:38 PM Reporting Lab: [facility] [address] [address] Performing Lab: [address] [address] [place] BASIC METABOLIC PANEL (fasting) GLOMERULAR FILTRATION RATE/1.73 SQ M.PREDICTED [VOLUME RATE/AREA] IN SERUM, PLASMA OR BLOOD BY CREATININE- BASED FORMULA (CKD-EPI 2020) 30 mL/min 60 03/11 L Specimen Type: SERUM No comment entered. Ordering Provider: ANYI PALMER Report Released Date/Time: Sep 06, 2023 03:38 PM Reporting Lab: [facility] [address] Performing Lab: [facility] [address] [place] MICROALBU MIN CREATININ E RATIO PANEL MICROALBUMI N/CREATININ E [MASS RATIO] IN URINE 868.1 mg/g 0 - 29.9 03/11 H Specimen Type: URINE No comment entered. Ordering Provider: ANYI PALMER Report Released Date/Time: Sep 06, 2023 03:38 PM Reporting Lab: [facility] [address] Performing Lab: [facility] [address] [address] [place] MICROALBU MIN CREATININ E RATIO PANEL MICROALBUMI N [MASS/VOLUM E] IN URINE 77.3 mg/dL 03/11 Specimen Type: URINE No comment entered. Ordering Provider: ANYI PALMER Report Released Date/Time: Sep 06, 2023 03:38 PM Reporting [facility] [address] [address] Performing Lab: [address] [address] [place] MICROALBU MIN CREATININ E RATIO PANEL CREATININE [MASS/VOLUM E] IN URINE 89.04 mg/dL 03/11 Specimen Type: URINE No comment entered. Ordering Provider: ANYI PALMER Report Released Date/Time: Sep 06, 2023 03:38 PM Reporting Lab: [address] [address] Performing Lab: [address] [address] [place] CBC AND DIFF (AUTO) LEUKOCYTES [#/VOLUME] IN BLOOD BY AUTOMATED COUNT 4.83 10*3/u L 4.50 - 11.00 03/11 Specimen Type: BLOOD No comment entered. Ordering Provider: ANYI PALMER Report Released Date/Time: Sep 06, 2023 03:38 PM Reporting Lab: [address] [address] Performing Lab: [address] [address] [place] CBC AND DIFF (AUTO) ERYTHROCYTE S [#/VOLUME] IN BLOOD BY AUTOMATED COUNT 5.19 10*6/u L 4.23 - 5.66 03/11 Specimen Type: BLOOD No comment entered. Ordering Provider: ANYI PALMER Report Released Date/Time: Sep 06, 2023 03:38 PM Reporting Lab: [facility] [place] [facility] [address] [facility] [address] Performing Lab: [facility] [place] [facility] [address] [facility] [address] [place] CBC AND DIFF (AUTO) HEMOGLOBIN [MASS/VOLUM E] IN BLOOD 15.1 g/dL 12.8 - 17 03/11 Specimen Type: BLOOD No comment entered. Ordering Provider: ANYI PALMER Report Released Date/Time: Sep 06, 2023 03:38 PM Reporting Lab: [facility] [address] [facility] [address] Performing Lab: [facility] [address] [address] [place] CBC AND DIFF (AUTO) HEMATOCRIT [VOLUME FRACTION] OF BLOOD BY AUTOMATED COUNT 44.8 39.2 - 50.4 03/11 Specimen Type: BLOOD No comment entered. Ordering Provider: ANYI PALEMR Report Released Date/Time: Sep 06, 2023 03:38 PM Reporting Lab: [facility] [place] [facility] [address] [facility] [address] Performing Lab: [facility] [place] [facility] [address] [facility] [address] [place] CBC AND DIFF (AUTO) MCV [ENTITIC VOLUME] BY AUTOMATED COUNT 86.3 fL 82 - 99 03/11 Specimen Type: BLOOD No comment entered. Ordering Provider: ANYI PALMER Report Released Date/Time: Sep 06, 2023 03:38 PM Reporting Lab: [facility] [place] [facility] [address] [facility] [address] Performing Lab: [facility] [place] [address] [address] [place] CBC AND DIFF (AUTO) MCHC [MASS/VOLUM E] BY AUTOMATED COUNT 33.7 g/dL 30.8 - 35.1 03/11 Specimen Type: BLOOD No comment entered. Ordering Provider: ANYI PALMER Report Released Date/Time: Sep 06, 2023 03:38 PM Reporting Lab: [facility] [place] [address] [address] Performing Lab: [facility] [place] [address] [address] [place] CBC AND DIFF (AUTO) PLATELETS [#/VOLUME] IN BLOOD BY AUTOMATED COUNT 256 10*3/u L 140 - 360 03/11 Specimen Type: BLOOD No comment entered. Ordering Provider: ANYI PALMER Report Released Date/Time: Sep 06, 2023 03:38 PM Reporting Lab: [facility] [place] [address] [address] Performing Lab: [facility] [place] [address] [address] [place] CBC AND DIFF (AUTO) ERYTHROCYTE DISTRIBUTIO N WIDTH [RATIO] BY AUTOMATED COUNT 12.6 12.0 - 16.0 03/11 Specimen Type: BLOOD No comment entered. Ordering Provider: ANYI PALMER Report Released Date/Time: Sep 06, 2023 03:38 PM Reporting Lab: [facility] [place] [address] [address] Performing Lab: [facility] [place] [address] [address] [place] CBC AND DIFF (AUTO) MONOCYTES [#/VOLUME] IN BLOOD BY AUTOMATED COUNT 0.49 10*3/u L 0.30 - 1.10 03/11 Specimen Type: BLOOD No comment entered. Ordering Provider: ANYI PALMER Report Released Date/Time: Sep 06, 2023 03:38 PM Reporting Lab: [facility] [place] [address] [address] Performing Lab: [facility] [place] [address] [address] [place] CBC AND DIFF (AUTO) MCH [ENTITIC MASS] BY AUTOMATED COUNT 29.1 pg 26.2 - 32.6 01/23 /2025 Specimen Type: BLOOD No comment entered. Ordering Provider: ANYI PALMER Report Released Date/Time: Sep 06, 2023 03:38 PM Reporting Lab: [facility] [place] [facility] [address] [facility] [address] Performing Lab: [facility] [address] [facility] [address] [place] CBC AND DIFF (AUTO) NEUTROPHILS /100 LEUKOCYTES IN BLOOD BY AUTOMATED COUNT 65.9 43.7 - 75.8 03/11 Specimen Type: BLOOD No comment entered. Ordering Provider: ANYI PALMER Report Released Date/Time: Sep 06, 2023 03:38 PM Reporting Lab: [facility] [address] [address] Performing Lab: [facility] [address] [address] [place] CBC AND DIFF (AUTO) LYMPHOCYTES /100 LEUKOCYTES IN BLOOD BY AUTOMATED COUNT 18.8 14.0 - 42.3 03/11 Specimen Type: BLOOD No comment entered. Ordering Provider: ANYI PALMER Report Released Date/Time: Sep 06, 2023 03:38 PM Reporting Lab: [facility] [address] [address] Performing Lab: [facility] [address] [address] [place] CBC AND DIFF (AUTO) MONOCYTES/1 00 LEUKOCYTES IN BLOOD BY AUTOMATED COUNT 10.1 5.1 - 13.7 03/11 Specimen Type: BLOOD No comment entered. Ordering Provider: ANYI PALMER Report Released Date/Time: Sep 06, 2023 03:38 PM Reporting Lab: [facility] [address] [address] Performing Lab: [facility] [address] [address] [place] CBC AND DIFF (AUTO) EOSINOPHILS /100 LEUKOCYTES IN BLOOD BY AUTOMATED COUNT 4.8 0.4 - 6.8 03/11 Specimen Type: BLOOD No comment entered. Ordering Provider: ANYI PALMER Report Released Date/Time: Sep 06, 2023 03:38 PM Reporting Lab: [facility] [place] [address] Performing Lab: [facility] [place] [address] [place] CBC AND DIFF (AUTO) BASOPHILS/1 00 LEUKOCYTES IN BLOOD BY AUTOMATED COUNT 0.2 0.1 - 2.0 03/11 Specimen Type: BLOOD No comment entered. Ordering Provider: ANYI PALMER Report Released Date/Time: Sep 06, 2023 03:38 PM Reporting Lab: [facility] [place] [address] Performing Lab: [facility] [place] [address] [place] CBC AND DIFF (AUTO) NEUTROPHILS [#/VOLUME] IN BLOOD BY AUTOMATED COUNT 3.18 10*3/u L 2.20 - 7.60 03/11 Specimen Type: BLOOD No comment entered. Ordering Provider: ANYI PALMER Report Released Date/Time: Sep 06, 2023 03:38 PM Reporting Lab: [facility] [address] Performing Lab: [facility] [address] [place] CBC AND DIFF (AUTO) LYMPHOCYTES [#/VOLUME] IN BLOOD BY AUTOMATED COUNT 0.91 10*3/u L 1.00 - 3.20 03/11 L Specimen Type: BLOOD No comment entered. Ordering Provider: ANYI PALMER Report Released Date/Time: Sep 06, 2023 03:38 PM Reporting Lab: [facility] [address] Performing Lab: [facility] [place] [facility] [address] [facility] [address] [place] CBC AND DIFF (AUTO) EOSINOPHILS [#/VOLUME] IN BLOOD BY AUTOMATED COUNT 0.23 10*3/u L 0.03 - 0.44 03/11 Specimen Type: BLOOD No comment entered. Ordering Provider: ANYI PALMER Report Released Date/Time: Sep 06, 2023 03:38 PM Reporting Lab: [facility] [place] [facility] [address] [facility] [address] Performing Lab: [facility] [address] [address] [place] CBC AND DIFF (AUTO) BASOPHILS [#/VOLUME] IN BLOOD BY AUTOMATED COUNT 0.01 10*3/u L 0.01 - 0.13 03/11 Specimen Type: BLOOD No comment entered. Ordering Provider: ANYI PALMER Report Released Date/Time: Sep 06, 2023 03:38 PM Reporting Lab: [facility] [address] [address] Performing Lab: [facility] [address] [facility] [address] [place] CBC AND DIFF (AUTO) IMMATURE GRANULOCYTE S/100 LEUKOCYTES IN BLOOD BY AUTOMATED COUNT 0.2 0.0 - 0.7 03/11 Specimen Type: BLOOD No comment entered. Ordering Provider: ANYI PALMER Report Released Date/Time: Sep 06, 2023 03:38 PM Reporting Lab: [facility] [address] [address] Performing Lab: [facility] [address] [address] [place] CBC AND DIFF (AUTO) IMMATURE GRANULOCYTE S [#/VOLUME] IN BLOOD 0.01 10*3/u L 0.00 - 0.06 03/11 Specimen Type: BLOOD No comment entered. Ordering Provider: ANYI PALMER Report Released Date/Time: Sep 06, 2023 03:38 PM Reporting Lab: [facility] [address] [address] Performing Lab: [facility] [address] [address] [place] CBC AND DIFF (AUTO) NRBC % 0.0 0.0 - 0.0 03/11 Specimen Type: BLOOD No comment entered. Ordering Provider: ANYI PALMER Report Released Date/Time: Sep 06, 2023 03:38 PM Reporting Lab: [facility] [address] [address] Performing Lab: [facility] [address] [address] [place] CBC AND DIFF (AUTO) NRBC, ABS 0.00 10*3/u L 0.00 - 0.00 03/11 Specimen Type: BLOOD No comment entered. Ordering Provider: ANYI PALMER Report Released Date/Time: Sep 06, 2023 03:38 PM Reporting Lab: [facility] [address] [address] Performing Lab: [facility] [address] [address] [place] PROTEIN/C REATININE RATIO PANEL, URINE CREATININE [MASS/VOLUM E] IN URINE 64.72 mg/dL 08/28 Specimen Type: URINE No comment entered. Ordering Provider: ANYI PALMER Report Released Date/Time: Aug 29, 2023 09:24 AM Reporting Lab: [facility] [address] [address] Performing Lab: [facility] [address] [address] [place] PROTEIN/C REATININE RATIO PANEL, URINE PROTEIN/CRE ATININE [MASS RATIO] IN URINE 1.6 <0.2 - 0.2 08/28 Specimen Type: URINE No comment entered. Ordering Provider: ANYI PALMER Report Released Date/Time: Aug 29, 2023 09:24 AM Reporting Lab: [address] [address] Performing Lab: [facility] [address] [facility] [address] [place] PROTEIN/C REATININE RATIO PANEL, URINE PROTEIN [MASS/VOLUM E] IN URINE 102.7 mg/dL 0.0 - 20.0 08/28 H Specimen Type: URINE No comment entered. Ordering Provider: ANYI PALMER Report Released Date/Time: Aug 29, 2023 09:24 AM Reporting Lab: [address] [address] Performing Lab: [address] [address] [place] ELECTROLY TE PANEL SODIUM [MOLES/VOLU ME] IN SERUM OR PLASMA 141 mmol/L 135 - 145 08/28 Specimen Type: SERUM No comment entered. Ordering Provider: ANYI PALMER Report Released Date/Time: Aug 29, 2023 09:24 AM Reporting Lab: [address] [address] Performing Lab: [address] [address] [place] ELECTROLY TE PANEL POTASSIUM [MOLES/VOLU ME] IN SERUM OR PLASMA 4.9 mmol/L 3.5 - 5.0 08/28 Specimen Type: SERUM No comment entered. Ordering Provider: ANYI PALMER Report Released Date/Time: Aug 29, 2023 09:24 AM Reporting Lab: [address] [address] Performing Lab: [address] [address] [place] ELECTROLY TE PANEL CHLORIDE [MOLES/VOLU ME] IN SERUM OR PLASMA 109 mmol/L 100 - 110 08/28 Specimen Type: SERUM No comment entered. Ordering Provider: ANYI PALMER Report Released Date/Time: Aug 29, 2023 09:24 AM Reporting Lab: [facility] [address] [facility] [address] Performing Lab: [address] [address] [facility] ELECTROLY TE PANEL CARBON DIOXIDE, TOTAL [MOLES/VOLU ME] IN SERUM OR PLASMA 23 meq/L 20 - 30 08/28 Specimen Type: SERUM No comment entered. Ordering Provider: ANYI PALMER Report Released Date/Time: Aug 29, 2023 09:24 AM Reporting Lab: [address] [address] Performing Lab: [address] [address] [facility] THYROID T4 FREE(FT4) (WROX) THYROXINE (T4) FREE [MASS/VOLUM E] IN SERUM OR PLASMA 1.31 ng/dL 0.6 - 1.6 08/28 Specimen Type: SERUM No comment entered. Ordering Provider: ANYI PALMER Report Released Date/Time: Mar 06, 2023 09:49 AM Reporting Lab: [facility] [address] [facility] [address] Performing Lab: [facility] [address] [facility] [address] [facility] Vital Signs Combined list of inpatient and outpatient Vital Signs from Department of Defense and Veterans Affairs, ranging from 12 months to all on record, depending upon the facility. Vital Sign Value Date Comments Source SYSTOLIC BLOOD PRESSURE 120 09/04/19 24 13:35:58 [facility] DIASTOLIC BLOOD PRESSURE 74 024 13:35:58 [facility] PULSE OXIMETRY 98 09/04/2023 13:35:58 [facility] WEIGHT 231.2 09/04/2023 13:35:58 [facility] BMI 36 kg/m2 09/04/2023 13:35:58 [facility] TEMPERATURE 96.4 09/04/2023 13:35:58 [facility] PULSE 64 09/04/2023 13:35:58 [facility] WEIGHT 232.2 06/24/2023 15:10:18 [facility] [place] [facility] BMI 36 kg/m2 06/24/2023 15:10:18 [facility] [place] [facility] SYSTOLIC BLOOD PRESSURE 118 05/30/19 24 08:33:01 [facility] DIASTOLIC BLOOD PRESSURE 68 024 08:33:01 [facility] PULSE OXIMETRY 96 05/30/2023 08:33:01 [facility] PAIN 0 05/30/2023 08:33:01 [facility] TEMPERATURE 97.3 05/30/2023 08:33:01 [facility] PULSE 75 05/30/2023 08:33:01 [facility] RESPIRATION 18 05/30/2023 08:33:01 [facility] Encounters Combined list of: 1) Encounters from Department of Veterans Affairs facilities going backup to the last 18 months, not all [place] inpatient encounters are included; 2) Encounters from the Department of [facility] facilities going backup to 280 months. Location Location Details Encounter Type Encounter Number Reason For Visit Attending Provider ADM Date DC Date Status Disposition Source ANN SAUCEDO MTMS BY PHARM ADDL 15 MIN [id number] Diagnos is: ICD-10- CM E11.9 Type 2 diabete s mellitu s without complic ations ALYSSA COLEMAN 10/18 [place] [facility] En[facility] [id number] EARLE ESQUIVEL IEL Y 10/30 [facility] En[facility] [id number] 11/06 [facility] Encounter [id number] 11/07 [facility] [id number] 11/15 [facility] [id number] 11/18 [facility] Encounter [id number] 11/29 [facility] En[facility] [id number] 11/29 [facility] [place] MTMS BY PHARM ADDL 15 MIN [id number] Diagnos is: ICD-10- CM E11.9 Type 2 diabete s mellitu s without complic ations ALYSSA COLEMAN 11/29 [place] [facility] Outpatient Encounter [id number] 12/03 [facility] [place] OFF/OP EST JUNE X REQ PHY/QHP [id number] Diagnos is: ICD-10- CM Z23 Encount er for immuniz ation JETT STANTON 12/04 [place] [facility] En[facility] [id number] 12/24 [facility] En[facility] [id number] 12/24 [facility] EYE EXAM&TX ESTAB PT 1/>VST [id number] Diagnos is: ICD-10- CM E11.9 Type 2 diabete s mellitu s without complic ations FERNANDO NGUYEN 01/07 [facility] FIT SPECTACLES MULTIFOCAL [id number] Diagnos is: ICD-10- CM Z46.0 Encount er for fit/adj st of spectac les and contact lenses FERNANDO NGUYEN Y J 01/07 [facility] REPAIR & ADJUST SPECTACLES [id number] Diagnos is: ICD-10- CM Z46.0 Encount er for fit/adj st of spectac les and contact lenses CARISSA BLAND 01/31 [facility] Out[facility] Encounter [id number] 02/03 [facility] Encounter [id number] 02/18 [facility] Encounter [id number] 02/18 [facility] Encounter [id number] 02/18 [facility] Encounter [id number] 02/18 [facility] En[facility] [id number] 02/18 [facility] Encounter [id number] 02/18 [facility] COLLJ & INTERPJ DATA EA 30 D [id number] Diagnos is: ICD-10- CM G47.30 Sleep apnea, unspeci fied KEYON MCNALLY 02/19 [facility] Outpatient Encounter [id number] FER VILLEGASJUAN Antunez 02/24 [facility] Outpatient Encounter [id number] 02/27 [facility] Outpatient Encounter [id number] 03/06 [facility] [place] OFF[place] O/P EST HI 40 MIN [id number] Diagnos is: ICD-10- CM G47.30 Sleep apnea, unspeci fied FER VILLEGASJUAN JOHNSON M 03/06 [place] [facility] Outpatient Encounter [id number] 03/07 [facility] [place] OFF/OP EST MAY X REQ PHY/QHP [id number] Diagnos is: ICD-10- CM G47.09 Other insomni a MAONLO,W ZOE 03/11 [place] [facility] Outpatient Encounter [id number] 03/13 [facility] [place] CASE MANAGEMENT [id number] Diagnos is: ICD-10- CM G47.09 Other insomni a MANOLO,W ZOE 03/19 [place] [facility] Out[facility] Encounter [id number] FER VILLEGASOG ELIZABETH M 03/20 [facility] En[facility] [id number] 03/25 [facility] Encounter [id number] 03/31 [facility] Encounter [id number] 04/17 [facility] Encounter [id number] 04/17 [facility] En[facility] [id number] 04/21 [facility] Encounter [id number] 05/11 [facility] Encounter [id number] 05/18 [facility] Encounter [id number] Gaby ROSSI 05/19 [facility] En[facility] [id number] 05/26 [facility]counter [id number] 05/26 [facility] Encounter [id number] MCKENZIE MCCOY 05/28 [facility] En[facility] [id number] 05/28 [facility] Encounter [id number] 05/29 [facility] OFF/OP EST JUNE X REQ PHY/QHP [id number] Diagnos is: ICD-10- CM R05.9 Cough, unspeci fied JOSE,ER IC K 05/29 [place] [facility] Out[facility] Encounter [id number] ZACARIAS EDGE 05/29 [facility] OFFICE O/P EST LOW 20 MIN [id number] Diagnos is: ICD-10- CM J06.9 Acute upper respira tory infecti on, unspeci fied ZACARIAS EDGE C 05/29 [place] [facility] Out[facility] Encounter [id number] 06/03 [facility] En[facility] [id number] 06/15 [facility] En[facility] [id number] 06/18 [facility] Encounter [id number] 06/25 [facility] En[facility] [id number] 06/29 [facility] Encounter [id number] 06/30 [facility] En[facility] [id number] 06/30 [facility] Encounter [id number] 07/09 [facility] En[facility] [id number] 07/10 [facility] Encounter [id number] 07/17 [facility] [place] MTMS BY PHARM ADDL 15 MIN [id number] Diagnos is: ICD-10- CM E11.9 Type 2 diabete s mellitu s without complic ations ALYSSA COLEMAN 08/07 [place] [facility] Out[facility] Encounter [id number] 08/12 [facility] En[facility] [id number] MITCH VANCE 08/17 [facility] En[facility] [id number] 08/17 [facility] QNHP OL DIG ASSMT&MGMT 5-10 [id number] Diagnos is: ICD-10- CM G47.09 Other insomni a TIFFANY CHUNG 08/17 [facility] En[facility] [id number] 09/02 [facility] [id number] 09/02 [facility] Encounter [id number] 09/03 [facility] OFFICE O/P EST MOD 30 MIN [id number] Diagnos is: ICD-10- CM D48.5 Neoplas m of uncerta in behavio r of skin ILENE-B NELLY,OG ELIZABETH M 09/03 [facility] Outpatient Encounter [id number] 09/28 [facility] UNLISTED SPEC DERM SVC/PX [id number] Diagnos is: ICD-10- CM Z13.89 Encount er for screeni ng for other disorde r Adriane RUANO 09/28 [facility] [place] [facility] Outpatient Encounter [id number] [facility] Outpatient Encounter [id number] Diagnos is: ICD-10- CM L82.1 Other seborrh eic keratos is HALEY GRAJEDA PH J 09/29 [facility] Out[facility] Encounter [id number] 09/29 [facility] En[facility] [id number] 09/30 [facility] En[facility] [id number] 10/14 [facility] [place]UN[place]AT[place] ADMIN [id number] Diagnos is: ICD-10- CM Z23 Encount er for immuniz atSUBHA Velez KNKendall 10/30 [facility] En[facility] [id number] 11/04 [facility] En[facility] [id number] 11/10 [facility] En[facility] [id number] 11/18 [facility] [id number] 11/19 [facility] En[facility] [id number] 11/24 [facility] OFF[facility] O/P EST MOD 30 MIN [id number] Diagnos is: ICD-10- CM L72.3 Sebaceo us cyst 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,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 11/25 [facility] Encounter [id number] 11/27 [facility] Encounter [id number] 12/03 [facility] Encounter [id number] 12/03 [facility] Out[facility] Encounter [id number] 12/04 [facility] COLLJ & INTERPJ DATA EA 30 D [id number] Diagnos is: ICD-10- CM G47.30 Sleep apnea, unspeci fied KEYON MCNALLY A 12/21 [facility] Out[facility] Encounter [id number] 12/21 [facility] Out[facility] Encounter [id number] 12/24 [facility] Out[facility] Encounter [id number] 12/28 [facility] Out[facility] Encounter [id number] 12/29 [facility] Encounter [id number] 12/30 [facility] Encounter [id number] 12/30 [facility] Encounter [id number] 1.12/30 [facility] Encounter [id number] 12/31 [facility] Encounter [id number] [facility] Encounter [id number] 01/06 [facility] Encounter [id number] [facility] Encounter [id number] 1.01/07 [facility] Out[facility] Encounter [id number] 01/07 [facility] COM[place]AM EST PT 1/ [id number] Diagnos is: ICD-10- CM E11.9 Type 2 diabete s mellitu s without complic ations FERNANDO NGUYEN 01/12 [facility] FIT SPECTACLES MONOFOCAL [id number] Diagnos is: ICD-10- CM Z46.0 Encount er for fit/adj st of spectac les and contact lenses FERNANDO NGUYEN 01/12 [facility] Out[facility] Encounter [id number] 01/12 [facility] Out[facility] Encounter [id number] 01/25 [facility] Out[facility] Encounter [id number] 01/25 [facility] Out[facility] Encounter [id number] 01/27 [facility] Outpatient Encounter [id number] STEVEN ANDERSON 02/09 [facility] Out[facility] Encounter [id number] 02/18 [facility] RPR&REFITG SPECT XCP APHAKIA [id number] 1. Diagnos is: ICD-10- CM Z46.0 Encount er for fit/adj st of spectac les and contact lenses Maci NEIL 02/19 [facility] Out[facility] Encounter [id number] 03/03 [facility] Out[facility] Encounter [id number] 03/04 [facility] Out[facility] Encounter [id number] 03/17 [facility] Out[facility] Encounter [id number] 03/17 [facility] Out[facility] Encounter [id number] 03/22 [facility] Outpatient Encounter [id number] 03/23 [facility] Outpatient Encounter [id number]/25 [facility] Outpatient Encounter [id number] [facility] Out[facility] Encounter [id number] 1.03/29 [facility] Social History Combined list of available smoking, tobacco, and other social history from Department of Defense and Veterans Affairs facilities. Social History Type Response Date Comment Source Tobacco smoking status [facility] VA-TOBACCO FORMER USER 02/18/2023 [facility] History of tobacco use CA-TOBACCO QUIT 15 YRS OR MORE 02/18/2023 [facility] [place] History of tobacco use VA-TOBACCO FORMER USER 12/31/2021 [facility] [place] [facility] History of tobacco use VA-TOBACCO FORMER USER 01/08/2021 [facility] History of tobacco use CA-TOBACCO QUIT 15 YRS OR MORE 06/10/2019 [facility] History of tobacco use CA-TOBACCO FORMER USER 12/04/2017 [facility] History of tobacco use QUIT TOBACCO USE > 7 YEARS AGO 05/19/2017 [facility] History of tobacco use QUIT TOBACCO USE > 7 YEARS AGO 05/15/2016 reports quitting 27 years ago [facility]AH History of tobacco use QUIT TOBACCO USE > 7 YEARS AGO 03/21/2015 quit 04/11/1989, smoker 3 ppd x 10 yrs [facility] History of tobacco use HISTORY OF SMOKING 10/20/2003 stopped tobacco 14 years ago SARAH History of tobacco use HISTORY OF SMOKING 09/14/2002 quit 13 years ago [facility] History of tobacco use QUIT TOBACCO USE > 7 YEARS AGO 11/25/2001 quit [facility] History of tobacco use HISTORY OF SMOKING 09/15/2001 quit 12 years ago 04/11/1989 SARAH Plan of Care List of future care activities from [facility] facilities. Additional future care activities may be listed in the Assessment and Plan section. Date/Time Care Activity Care Activity Detail Facili ty 03/30/2024 AMBULATORY - MEDICINE [facility] 04/26/2024 AMBULATORY - MEDICINE AMBULATORY - MEDICI NE [facility] 06/10/2024 AMBULATORY - [facility] 02/24/2024 Consult Order COMMUNITY CARE-N EPHROLOGY Cons [facility] 03/04/2024 Consult Order PHYSICAL THERAPY /[facility]M OUTPT Cons [facility] 03/26/2024 Consult Order CARDIOLOGY ONE C ons [facility] SARAH Advance Directives List of completed, amended, or rescinded Advance Directives on record at [facility] facilities. An actual copy of the Directive is not included. Date Advance Directive Provider Source 07/02/2022 ADVANCE DIRECTIVE SANDRA BROOKS [facility] 08/07/2021 ADVANCE DIRECTIVE RADHA SAHA IE[facility] 11/28/2020 ADVANCE DIRECTIVE GOLDIE DUTTA [facility]
--- OUTSIDE RECORDS SUMMARY | 2024-03-29 11:36 | XMS_ITS | Encounter Summary ---
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 [facility] [facility] [place] Address [address] [place] [address] Care Team Providers Care Video Production Assistant Name Role Phone LEV OCONNELL Primary Care [...] PROVIDER ORGANIZAT ION (PPO) DWAYNE AL EMPLO YEBIENVENIDO* Mar 02, 2023 [id number] ELIZABETH SMILEY JR PATIENT [employer] PREFERRED PROVIDER ORGANIZAT ION (PPO) FED EMPLO YEES Jan 26, 2020 [id number] [phone] ELIZABETH SMILEY JR PATIENT [employer] PREFERRED PROVIDER ORGANIZAT ION (PPO) DWAYNE AL EMPLO YEES Feb 25, 2016 [id number] ELIZABETH SMILEY JR PATIENT [employer] PREFERRED PROVIDER ORGANIZAT ION (PPO) DWAYNE AL EMPL [facility] Feb 25, 2016 [id number] BALJIT BELCHERELIZABETH Kendall PATIENT [employer] PREFERRED PROVIDER ORGANIZAT ION (PPO) DWAYNE AL EMPL [facility] Feb 25, 2016 [id number] ELIZABETH SMILEY PATIENT [employer] PREFERRED PROVIDER ORGANIZAT ION (PPO) DWAYNE AL EMPLO MIMI Feb 24, 2016 [id number] ELIZABETH SMILEY PATIENT [employer] PHARMACY MANAGEMENT PRESCRIPT ION DWAYNE AL EMPLO [facility] Mar 02, 2023 [id number] BALJIT BELCHERELIZABETH PATIENT [employer] PHARMACY MANAGEMENT PRESCRIPT ION [facility] Jan 26, 2020 [id number] BALJIT BELCHERELIZABETH PATIENT [employer] PHARMACY MANAGEMENT PRESCRIPT ION [facility] Feb 25, 2016 [id number] ELIZABETH SMILEY PATIENT [employer] PHARMACY MANAGEMENT PRESCRIPT ION DWAYNE AL EMPLO [facility] Feb 25, 2016 [id number] ELIZABETH SMILEY PATIENT [employer] RX PRESCRIPT ION [facility] Feb 25, 2016 [id number] ELIZABETH SMILEY PATIENT [employer] RX PRESCRIPT ION [facility] Feb 25, 2016 [id number] BALJIT BELCHERELIZABETH PATIENT [employer] RX PRESCRIPT ION [facility] Feb 25, 2016 [id number] BALJIT BELCHERELIZABETH PATIENT [employer] POINT OF SERVICE [employer] Mar 20, 2002 [id number] ELIZABETH SMILEY PATIENT [employer]* POINT OF SERVICE Mar 20, 2002 [id number] BALJIT ELIZABETH PATIENT Selected Encounter This section includes the information on record at [place] for the Encounter. Date/Time Encounter Type Encounter Description Reason Pro vider Source Mar 17, 2024 10:48 AM Outpatient Encounter ADMIN PAT ACTIVTIES (MASNONCT) [...] 30, 2024 01:00 PM [place] [facility] Apr 26, 2024 01:30 PM [facility] Jun 10, 2024 02:30 PM AMBULATORY - MEDICINE [facility] Active, Pending, and Scheduled Orders This section includes a listing of several types of active, pending, and scheduled orders, including clinic medications orders, diagnostic test orders, procedure orders and consult orders; where the start date of the order is 45 days before the date of the Encounter or 45 days after the date of theEncounter. The data comes from all [facility]. Test Date/Time Test Type Test Details Facility Name Feb 24, 2024 07:33 AM Consult Order COMMUNITY CARE-NEPHROLOGY [facility] Senior Accounts Payable Specialist's Choice [place] Mar 04, 2024 11:41 AM Consult Order PHYSICAL T HERAPY/NHM OUTPT [facility] Senior Accounts Payable Specialist's [facility] Mar 26, 2024 11:15 AM Consult Order CARDIOLOGY ONE Cons Senior Accounts Payable Specialist's [facility] Lab Results: +/- 30 days of the [...] Range Comment Mar 11, 2024 11:22 AM [place] HEMOGLOBIN A1C PANEL Specimen Type: BLOOD Comment: [...] Sep 06, 2023 03:38 PM Reporting Lab: [facility] [address] [address] Performing Lab: [facility]USE[address] [address] HEMOGLOBIN A1C 7.7 H 4.0-5.6 Mar 11, 2024 11:22 AM [place] LIPID PANEL FASTING Specimen Type: SERUM No comment entered. Ordering Provider: LEV LIZAMA Report Released Date/Time: Sep 06, 2023 03:38 PM Reporting Lab: [facility] [address] [address] Performing Lab: [facility] [address] [address] CHOLESTEROL 166 mg/dL TRIGLYCERIDE 137 mg/dL 0-150 LDL calculated 109 mg/dL 0-129 CHOL/HDL 5.5 HDL CHOLESTEROL 30 mg/dL L 40-60 Mar 11, 2024 11:22 AM [place] TSH Specimen Type: SERUM No comment entered. Ordering Provider: LEV LIZAMA Report Released Date/Time: Sep 06, 2023 03:38 PM Reporting Lab: [facility]TRN [facility]ITALUSE[address] [address] Performing Lab: [facility]ITALRL TRN [facility] HOSPITALUSETS [address] [address] TSH 2.32 u[IU]/mL 0.35-5.00 Mar 11, 2024 11:22 AM [place] LIVER FUNCTION Specimen Type: SERUM No comment entered. Ordering Provider: LEV LIZAMA Report Released Date/Time: Sep 06, 2023 03:38 PM Reporting Lab: [facility]ITALUSE[address] [address] Performing Lab: [facility]PITALRL [address] [address] PROTEIN,TOTAL 6.6 g/dL 6.0-8.3 ALBUMIN 3.7 g/dL 3.5-5.0 ALKALINE PHOSPHATASE 51 U/L 40-150 AST 18 U/L 5-34 ALT 29 U/L BILIRUBIN, TOTAL 0.4 mg/dL 0.2-1.2 Mar 11, 2024 11:22 AM [place] BASIC METABOLIC PANEL (fasting) Specime n Type: SERUM No comment entered. Ordering Provider: LEV LIZAMA Report Released Date/Time: Sep 06, 2023 03:38 PM Reporting Lab: [address] [address] Performing Lab: [address] [address] UREA NITROGEN 40 mg/dL H 7-25 GLUCOSE 133 mg/dL H 65-100 SODIUM 138 mmol/L 135-145 POTASSIUM 5.2 mmol/L H 3.5-5.0 CHLORIDE 103 mmol/L 100-110 CO2 26 meq/L 20-30 CREATININE, Serum 2.34 mg/dL H 0.50-1.40 eGFR(CKD-EPI 2020) 30 mL/min L >60 Mar 11, 2024 11:22 AM [place] MICROALBUMIN CREATININE RATIO PANEL Spe cimen Type: URINE No comment entered. Ordering Provider: LEV LIZAMA Report Released Date/Time: Sep 06, 2023 03:38 PM Reporting Lab: [address] [address] Performing Lab: [address] [address] MICROALBUMIN/C REATININE RATIO 868.1 mg/g H 0-29.9 MICROALBUMIN,Q UANTITATIVE 77.3 mg/dL RR UNAVAIL CREATININE URINE 89.04 mg/dL Mar 11, 2024 11:22 AM [place] CBC AND DIFF (AUTO) Specimen Type: BLOOD No comment entered. Ordering Provider: LEV LIZAMA Report Released Date/Time: Sep 06, 2023 03:38 PM Reporting Lab: [facility] [address] [facility] [address] Performing Lab: [facility] [address] [facility] [address] WBC 4.83 10*3/uL 4.50-11.00 RBC 5.19 10*6/uL [...] 18, 2023 02:31 PM VA-TOBACCO FORMER USER [facility] Tobacco Use History This section includes a history of the smoking, or tobacco-related health factors, that were collected on or before the date of the Encounter. The data comes from the [place] facility where the Encounter took place. Date/Time Smoking Status/Tobacco Use Comment F acility Feb 18, 2023 02:31 PM [place]-TOBACCO QUIT 15 YRS [place] MORE [place] [facility] [place] [place] [facility] Dec 31, 2021 01:00 PM [place]BAC[place] FOR[place] US[place] [facility] [place] [facility] Dec 31, 2021 01:00 PM [place] 15 YRS OR MORE [facility] Advance Directives: All historical and [...] 02, 2022 ADVANCE DIRECTIVE SANDRA [facility]KS [facility] Aug 07, [address] RADHA [address] [facility] Nov 28, 2020 ADVANCE DIRECT[address] DUT[address]IE MITCH [facility] Encounter Notes: All associated encounter notes This section contains the clinical notes associated to the Encounter. Date/Time Encounter Note(s) Provider Source Mar 17, 2024 10:48 AM ADMINISTRATIVE NOT E: LOCAL TITLE: CCC: SCHEDULING ADMINISTRATION STANDARD TITLE: ADMINISTRATIVE NOTE DATE OF NOTE: MAR 17, 2024@10:48:57 ENTRY DATE: MAR 17, 2024@10:48:58 AUTHOR: MARIELENA JOHNSON COSIGNER: URGENCY: STATUS: COMPLETED CCC: SCHEDULING ADMINISTRATION Has ADDENDA Patient Demographics Patient Name: ELIZABETH STEWARTBERNARDINO BELCHER Patient Primary Phone: [phone] Patient Primary Address: [address] [place] [address] [place] [address] Patient : 1960 Patient Age: 64 Caller/Recipient Relation to Patient: Self Caller Name: ELIZABETH STEWARTBERNARDINO BELCHER Administrative Administrative Note Reason: Other Administrative Note Comments: Per triage needs to be seen within 3 days F2F with PCP for linger cough from covid. Tw unable to find an available appt within that time frame. thank you IMPORTANT: This note was created by [facility] staff. Please do not alert the staff member by adding them as a signer for future communications. Alerts are not monitored by this user. /bienvenido/ MARIELENA JOHNSON VISN1 [facility] AMSA Signed: 03/17/2024 10:48 Receipt Acknowledged By: 03/22/2024 10:13 /es/ MAXIMO HOFFMAN LPN LPN 03/22/2024 09:57 /es/ STEVEN DIAL RN REGISTERED NURSE 03/22/2024 ADDENDUM STATUS: COMPLETED Spoke with . He states he is on his way to [facility] for persistent cough. Pe Ell has up-coming PCP appt on 04/26/24. Pe Ell would update PACT after his visit to the . /bienvenido/ STEVEN DIAL RN REGISTERED NURSE Signed: 03/22/2024 09:56 MARIELENA JOHNSON [place] [facility]
--- OUTSIDE RECORDS SUMMARY | 2024-03-29 11:37 | XMS_ITS | Encounter Summary ---
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 [place] Organization [facility] Address [address] [place] [address] Care Team Providers Care Tile Fitter Name Role Phone LEV OCONNELL Primary Care [...] PROVIDER ORGANIZAT ION (PPO) DWAYNE AL EMPL YE* Mar 02, 2023 [id number] [phone] ELIZABETH SMILEY JR PATIENT AETNA PREFERRED PROVIDER ORGANIZAT ION (PPO) FED EMPLO YE Jan 26, 2020 [id number] ELIZABETH SMILEY JR PATIENT AETNA PREFERRED PROVIDER ORGANIZAT ION (PPO) DWAYNE AL EMPL [facility] Feb 25, 2016 [id number] ELIZABETH SMILEY JR PATIENT AETNA PREFERRED PROVIDER ORGANIZAT ION (PPO) DWAYNE AL EMPL Feb 25, 2016 [id number] ELIZABETH SMILEY PATIENT AETNA PREFERRED PROVIDER ORGANIZAT ION (PPO) DWAYNE AL EMPLO MIMI Feb 25, 2016 [id number] BALJIT BELCHERELIZABETH PATIENT AETNA PREFERRED PROVIDER ORGANIZAT ION (PPO) DWAYNE AL EMPLO MIMI Feb 24, 2016 [id number] ELIZABETH SMILEY PATIENT AETNA PHARMACY MANAGEMENT PRESCRIPT ION DWAYNE AL EMPLO MIMI Mar 02, 2023 [id number] ELIZABETH SMILEY JR PATIENT AETNA PHARMACY MANAGEMENT PRESCRIPT ION DWAYNE AL EMPLO YEBIENVENIDO Jan 26, 2020 [id number] ELIZABETH SMILEY JR PATIENT AETNA PHARMACY MANAGEMENT PRESCRIPT ION DWAYNE AL EMPLO MIMI Feb 25, 2016 [id number] ELIZABETH SMILEY PATIENT AETNA PHARMACY MANAGEMENT PRESCRIPT ION [facility] Feb 25, 2016 [id number] [phone] [id number] ELIZABETH PATIENT AETNA RX PRESCRIPT ION DWAYNE AL EMPLO MIMI Feb 25, 2016 [id number] ELIZABETH SMILEY PATIENT AETNA RX PRESCRIPT ION FEHBP Feb 25, 2016 [id number] ELIZABETH SMILEY JR PATIENT AETNA RX PRESCRIPT ION DWAYNE AL EMPLO MIMI Feb 25, 2016 [id number] ELIZABETH SMILEY JR PATIENT [employer] POINT OF SERVICE TYCO Mar 20, 2002 [id number] ELIZABETH SMILEY PATIENT CIGNA* POINT OF SERVICE Mar 20, 2002 [id number] ELIZABETH SMILEY PATIENT Selected Encounter This section includes the information on record at [place] for the Encounter. Date/Time Encounter Type Encounter Description Reason Pro vider Source Mar 25, 2024 01:13 PM Outpatient Encounter PRIMARY CARE/MEDICINE IHE Encounter Template Text not used by [place] Plan of Treatment: Future Appointments (+ 6 months) and Future Tests (+/- 45 days) The Plan of Treatment section includes future care activities for the patient from all [place] [facility] This section includes future appointments [...] 30, 2024 01:00 PM AMBULATORY - MEDICINE [place] [facility] Apr 26, 2024 01:30 PM [facility] Jun 10, 2024 02:30 PM AMBULATORY - MEDICINE [facility] N[facility] Active, Pending, and Scheduled Orders This section includes a listing of several types of active, pending, and scheduled orders, including clinic medications orders, diagnostic test orders, procedure orders and consult orders; where the start date of the order is 45 days before the date of the Encounter or 45 days after the date of theEncounter. The data comes from all [facility]. Test Date/Time Test Type Test Details Facility Name Feb 24, 2024 07:33 AM Consult Order COMMUNITY CARE-NEPHROLOGY [facility] Statistical Methods Teacher's Choice [place] Mar 04, 2024 11:41 AM Consult Order PHYSICAL T HERAPY/[facility]M OUTPT Cons Statistical Methods [facility] Mar 26, 2024 11:15 AM Consult Order CARDIOLOGY ONE Cons Statistical Methods Teacher's [facility] Lab Results: +/- 30 days of [...] Range Comment Mar 11, 2024 11:22 AM [place] HEMOGLOBIN A1C PANEL Specimen Type: BLOOD Comment: [...] Sep 06, 2023 03:38 PM Reporting Lab: [facility]TR[facility]ITAL[facility] [address] [address] Performing Lab: [facility]ITALRLAKEL[facility]ITALN [facility]ITALUSETS [address] [address] HEMOGLOBIN A1C 7.7 H 4.0-5.6 Mar 11, 2024 11:22 AM [place] LIPID PANEL FASTING Specimen Type: SERUM No comment entered. Ordering Provider: LEV LIZAMA Report Released Date/Time: Sep 06, 2023 03:38 PM Reporting Lab: [facility]ITALRPRATTVIL[facility]AP[facility]OSPITALTRN [address] [address] Performing Lab: [facility]ITALRLAKEL[facility] COMM[facility]OSPITALN [address] [address] CHOLESTEROL 166 mg/dL TRIGLYCERIDE 137 mg/dL 0-150 LDL calculated 109 mg/dL 0-129 CHOL/HDL 5.5 HDL CHOLESTEROL 30 mg/dL L 40-60 Mar 11, 2024 11:22 AM [place] TSH Specimen Type: SERUM No comment entered. Ordering Provider: LEV LIZAMA Report Released Date/Time: Sep 06, 2023 03:38 PM Reporting Lab: [facility]OSPITALRL TRN [facility]ITALUSETS [address] [address] Performing Lab: [place] CNTRL [place] [facility] [address] [address] TSH 2.32 u[IU]/mL 0.35-5.00 Mar 11, 2024 11:22 AM [place] LIVER FUNCTION Specimen Type: SERUM No comment entered. Ordering Provider: LEV LIZAMA Report Released Date/Time: Sep 06, 2023 03:38 PM Reporting Lab: [facility]ITALRPRATTVIL[facility]OSPITALTRN [facility]ITALUSETS [address] [address] Performing Lab: [place] CNTRL TRN [facility] [address] [address] PROTEIN,TOTAL 6.6 g/dL 6.0-8.3 ALBUMIN 3.7 g/dL 3.5-5.0 ALKALINE PHOSPHATASE 51 U/L 40-150 AST 18 U/L 5-34 ALT 29 U/L BILIRUBIN, TOTAL 0.4 mg/dL 0.2-1.2 Mar 11, 2024 11:22 AM [place] BASIC METABOLIC PANEL (fasting) Specime n Type: SERUM No comment entered. Ordering Provider: LEV LIZAMA Report Released Date/Time: Sep 06, 2023 03:38 PM Reporting Lab: [address] [address] Performing Lab: [address] [address] UREA NITROGEN 40 mg/dL H 7-25 GLUCOSE 133 mg/dL H 65-100 SODIUM 138 mmol/L 135-145 POTASSIUM 5.2 mmol/L H 3.5-5.0 CHLORIDE 103 mmol/L 100-110 CO2 26 meq/L 20-30 CREATININE, Serum 2.34 mg/dL H 0.50-1.40 eGFR(CKD-EPI 2020) 30 mL/min L >60 Mar 11, 2024 11:22 AM [place] MICROALBUMIN CREATININE RATIO PANEL Spe cimen Type: URINE No comment entered. Ordering Provider: LEV LIZAMA Report Released Date/Time: Sep 06, 2023 03:38 PM Reporting Lab: [address] [address] Performing Lab: [address] [address] MICROALBUMIN/C REATININE RATIO 868.1 mg/g H 0-29.9 MICROALBUMIN,Q UANTITATIVE 77.3 mg/dL RR UNAVAIL CREATININE URINE 89.04 mg/dL Mar 11, 2024 11:22 AM [place] CBC AND DIFF (AUTO) Specimen Type: BLOOD No comment entered. Ordering Provider: LEV LIZAMA Report Released Date/Time: Sep 06, 2023 03:38 PM Reporting Lab: [facility] [address] [address] Performing Lab: [facility] [address] [address] WBC 4.83 10*3/uL 4.50-11.00 RBC 5.19 10*6/uL [...] 18, 2023 02:31 PM [place]-TOBACCO FORMER USER [facility] Tobacco Use History This section includes a history of the smoking, or tobacco-related health factors, that were collected on or before the date of the Encounter. The data comes from the [place] facility where the Encounter took place. Date/Time Smoking Status/Tobacco Use Comment F acility Feb 18, 2023 02:31 PM VA-TOBACCO QUIT 15 YRS OR MORE [facility] Dec 31, 2021 01:00 PM [place]-TOBACCO FORMER USER [place] [facility] Dec 31, 2021 01:00 PM [place]-TOBACCO QUIT 15 YRS OR MORE [facility] Advance Directives: All historical and current [...] Date/Time Encounter Note(s) Provider Source Mar 25, 2024 01:13 PM PRIMARY CARE SECURE MESSAGING: [facility] TITLE: PRIMARY CARE SECURE MESSAGING STANDARD TITLE: PRIMARY CARE SECURE MESSAGING DATE OF NOTE: MAR 25, 2024@13:13 ENTRY DATE: MAR 25, 2024@13:13:47 AUTHOR: SANDRA BROOKS EXP COSIGNER: URGENCY: STATUS: COMPLETED ------Original Message ------ Sent: 03/25/2024 01:11 PM ET From: ELIZABETH SMILEY To: RAINA OCONNELL [facility] Subject: General:Ongoing issues... On 03/07/24 I was diagnosed with Covid 19 at an urgent care. Due to ongoing shortness of breath and a heavy chest, I returned to the Urgent Care on 03/22/24. At that time, I was told my lungs were clear. However, I should be seen at a Hospital ED for a possible Pulmonary Embolism, as blood work and a CT scan is the only way to confirm this. The Dr there informed my that my EKG was normal; Blood work testing D-Dimer for clots and for Enzymes showing a Heart event all came back negative. Due to my Kidney disorder, it was determined they could not perform the CT scan because the contrast clears through the kidneys. They also performed ultrasounds of both legs (groin to ankle), all clear of clots. Upon discharge from the [facility] ED, I was directed to see a Veneer Jointer Offbearer as a follow-up due to the ongoing breathing and heavy chest issues. I was given the following referral information: Shiraz Sotomayor MD [facility] [address] [place] [address] Can you please forward this to the [facility] for a referral. /bienvenido/ SANDRA MENESES Signed: 03/25/2024 13:13 Receipt Acknowledged By: 03/26/2024 09:06 /bienvenido/ MAXIMO HOFFMAN LPN LPN 03/26/2024 16:23 /es/ STEVEN DIAL RN REGISTERED NURSE SANDRA BROOKS [facility]
--- OUTSIDE RECORDS SUMMARY | 2024-03-29 11:37 | XMS_ITS | Clinical Summary ---
Author Organization [facility] ity Address [address] [place] [address] Care Team Providers Care Regional Owner Operator Truck Driver Name Role Phone Downey, Araceli Griffin MD Primary Care Provider Social History Tobacco Use Types Packs/Day Years Used Date Smoking Tobacco: Never Assessed Sex and Gender Information Value Date Recorded Sex Assigned at Not on file Legal Sex Male 4:32 PM EST Gender Identity Not on file Sexual Orientation Not on file Plan of Treatment Health Maintenance Due Date Last Done Comments DTaP,Tdap,and Td Vaccines (1 - Tdap) 01/10/1968 Pneumococcal Vaccine: 50+ Ye ars (1 of 1 - PCV) 2011 Zoster Vaccines (1 of 2) 2011 COVID-19 Vaccine ( - 2023-2 5 season) 2023 Influenza Vaccine (#1) 2023 RSV Immunization Patients 60 + Years Old (1 - 1-dose 75+ series) 01/10/2036 HIB Vaccines Aged Out No longer eligi ble based on patient's age to complete this topic HPV Vaccines Aged Out No longer eligi ble based on patient's age to complete this topic Hepatitis A Vaccines Aged Out No long er eligible based on patient's age to complete this topic Hepatitis B Vaccines Aged Out No long er eligible based on patient's age to complete this topic IPV Vaccines Aged Out No longer eligi ble based on patient's age to complete this topic MMR Vaccines Aged Out No longer eligi ble based on patient's age to complete this topic Meningococcal ACWY Vaccine Aged Out N o longer eligible based on patient's age to complete this topic Meningococcal B Vacine Aged Out No lo nger eligible based on patient's age to complete this topic Pneumococcal Vaccine: Pediat rics (0 to 5 Years) and At-Risk Patients (6 to 64 Years) Aged Out No longer eligible b ased on patient's age to complete this topic RSV Immunization Patients Un maik 20 months Aged Out No longer eligible b ased on patient's age to complete this topic Varicella Vaccines Aged Out No longer eligible based on patient's age to complete this topic Care Teams Regional Owner Operator Truck Driver Relationship Specialty Start Date End Date Araceli Downey MD [address] [place], [place] [address]t Of [facility] Affairs [place], [place] PCP - General Internal Medicine 09/02/16
--- OUTSIDE RECORDS SUMMARY | 2024-03-29 11:37 | XMS_ITS | Patient Health Record ---
Author Organization [facility] Address [address] [place] [address] Care Team Providers Care Prospect Manager Name Role Phone Dylan Cat Primary Care Provider Unavailable Black, Cass Unavailable [phone] Allergies Allergen (clinical drug ingredient) Drug/Non Drug [...] Problem Acquired hammer toe of right foot (1249050034252496 ) Other hammer toe(s) (acquired), right foot (M20.41) Active confirmed Problem Acquired hammer toe of left foot (6810665217462179 ) Other hammer toe(s) (acquired), left foot (M20.42) Active confirmed Problem Polyneuropathy due to type 2 diabetes mellitus (387090122) Type 2 diabetes mellitus with diabetic polyneuropathy (E11.42) Active confirmed Vital Signs Blood pressure diastolic 74 mm Hg 12/25/2023 Height 5ft 7in in 12/25/2023 Blood pressure systolic 116 mm Hg 12/25/2023 Weight 230 lbs 12/25/2023 BMI 36.02 kg/m2 12/25/2023 Procedures Procedure Date Ordered Date Performed Result Body Sit e 65485-MRCTJFY NAIL, 1-5 06/26/2023 N/A K0106-ANKZZHJI DYSTROPHIC NAILS ANY # 06/26/2023 N/A 56873-HCQVJBG NAIL, 1-5 12/25/2023 N/A 61423-KHLD SKIN LESIONS, 2 TO 4 12/25/2023 N/A Encounters Encounter Location Date Provider [facility] [address] 06/26/2023 Cass Lugo Type 2 diabetes mellitus with diabetic polyneuropathy E11.42 ; Tinea unguium B35.1 ; Skin maceration L98.8 and Tinea pedis B35.[address] [address] 12/25/2023 Cass Lugo Type 2 diabetes mellitus with diabetic polyneuropathy E11.42 ; Tinea pedis B35.3 ; Tinea unguium B35.1 and Skin maceration L98.[address] [address] 06/02/2023 Cass Black Assessments Encounter Date Diagnosis [...] Test Name Order Date Hemoglobin A1c 01/30/2015 14627-LEFXCBE NAIL, 6 OR MORE 01/13/2012 05063-QKDDEKE NAIL, 6 OR MORE 06/29/2012 55505-VDMFMMG NAIL, 6 OR MORE 12/24/2012 44055-OUMOPMF NAIL, 6 OR MORE 01/07/2011 54340-VQCYRLN NAIL, 6 OR MORE 06/24/2013 08052-RJLCMIO NAIL, 1-5 07/08/2011 36555-TUPGFMD NAIL, 1-5 01/10/2014 46773-ICBNZFN NAIL, 1-5 06/30/2014 78439-TULRLRJ NAIL, 1-5 01/30/2015 52399-JFNWPZP NAIL, 1-5 07/27/2015 81197-YXVPCOM NAIL, 1-5 12/25/2023 34535-VXPWBET NAIL, 1-5 01/15/2016 02776-YBZHEQJ NAIL, 1-5 08/30/2021 76638-RHLWUGY NAIL, 1-5 01/21/2022 83411-PJXGTHE NAIL, 1-5 11/07/2022 95490-ZMKVELE NAIL, 1-5 06/26/2023 76784-Dcfkkemk Plate 08/30/2021 22860-FEPA SKIN LESIONS, 2 TO 4 01/15/20 16 07357-RHAC SKIN LESIONS, 2 TO 4 12/25/19 24 36530-PESE SKIN LESIONS, 2 TO 4 01/31/20 15 53167-JSST SKIN LESIONS, 2 TO 4 07/27/19 16 97335-KBDT SKIN LESIONS, 2 TO 4 07/01/19 15 38045-KRAG SKIN LESIONS, 2 TO 4 06/25/19 14 84408-XZUH SKIN LESIONS, 2 TO 4 01/11/20 14 94816-DVYH SKIN LESIONS, 2 TO 4 12/25/19 13 20960-HSCX NAIL(S) 06/30/2014 30963-MPQJ NAIL(S) 01/10/2014 99153-EKRA NAIL(S) 07/27/2015 56450-FFIR NAIL(S) 01/30/2015 83087-TYYB NAIL(S) 01/15/2016 A0527-UZHXNLLV DYSTROPHIC NAILS ANY # Next Appt Details Provider Name:Cass Lugo , 06/24/2024 02:00:00 PM, [address] [place], [address], Insurance Providers Payer Name Payer Address Payer Phone Subscriber Number Group Number Insured Name Patient Relationship to Insured Coverage Start Date Coverage End Date Aet[employer] Choice POS [address] [address] [place] [address] [id number] Major Tidwell Self - patient is the [...]
--- OUTSIDE RECORDS SUMMARY | 2024-03-29 11:37 | XMS_ITS | Encounter Summary ---
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 [place] Organization [facility] [place] [place] Address [address] [place] [address] Care Team Providers Care Human Resource Statistician Name Role Phone LEV OCONNELL Primary Care [...] PROVIDER ORGANIZAT ION (PPO) DWAYNE AL EMPLO YE* Mar 02, 2023 [id number] ELIZABETH SMILEY JR PATIENT AETNA PREFERRED PROVIDER ORGANIZAT ION (PPO) FED EMPLO YEES Jan 26, 2020 [id number] ELIZABETH SMILEY JR PATIENT AETNA PREFERRED PROVIDER ORGANIZAT ION (PPO) DWAYNE AL EMPL [facility] Feb 25, 2016 [id number] [phone] ELIZABETH SMILEY JR E PATIENT AETNA PREFERRED PROVIDER ORGANIZAT ION (PPO) DWAYNE AL EMPL [facility] Feb 25, 2016 [id number] ELIZABETH SMILEY PATIENT AETNA PREFERRED PROVIDER ORGANIZAT ION (PPO) DWAYNE AL EMPLO MIMI Feb 25, 2016 [id number] ELIZABETH SMILEY JR PATIENT AETNA PREFERRED PROVIDER ORGANIZAT ION (PPO) DWAYNE AL EMPLO MIMI Feb 24, 2016 [id number] ELIZABETH SMILEY PATIENT AETNA PHARMACY MANAGEMENT PRESCRIPT ION DWAYNE AL EMPLO MIMI Mar 02, 2023 [id number] ELIZABETH SMILEY JR PATIENT AETNA PHARMACY MANAGEMENT PRESCRIPT ION DWAYNE AL EMPLO MIMI Jan 26, 2020 [id number] ELIZABETH SMILEY JR PATIENT AETNA PHARMACY MANAGEMENT PRESCRIPT ION ALICIAFT Feb 25, 2016 [id number] [phone] ELIZABETH SMILEY PATIENT AETNA PHARMACY MANAGEMENT PRESCRIPT ION DWAYNE AL EMPLO MIMI Feb 25, 2016 [id number] ELIZABETH SMILEY PATIENT AETNA RX PRESCRIPT ION DWAYNE AL EMPLO MIMI Feb 25, 2016 [id number] ELIZABETH SMILEY PATIENT AETNA RX PRESCRIPT ION FEHBP Feb 25, 2016 [id number] ELIZABETH SMILEY JR PATIENT AETNA RX PRESCRIPT ION DWAYNE AL EMPLO MIMI Feb 25, 2016 [id number] ELIZABETH SMILEY JR PATIENT CIGNA POINT OF SERVICE TYCO Mar 20, 2002 [id number] ELIZABETH SMILEY PATIENT CIGNA* POINT OF SERVICE Mar 20, 2002 [id number] BALJIT ELIZABETH PATIENT Selected Encounter This section includes the information on record at [place] for the Encounter. Date/Time Encounter Type Encounter Description Reason Pro vider Source IHE Encounter Template Text not used by [place] Advance Directives: All historical and current Section [...] Aug 07, 2021 ADVANCE DIRECTIVE RADHA SAHA [facility] Nov 28, 2020 ADVANCE DIRECTIVE [facility]
--- OUTSIDE RECORDS SUMMARY | 2024-03-29 11:37 | XMS_ITS | Data Portability ---
Author Organization [facility] [address] Address [address] [place] [address] Assessment No assessment recorded. 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 Active 2022 RHIANNA ASHLEY null, [place] - [facility] 3 12:34:40 Disorder of thyroid gland 05997395 Active 2022 RHIANNA ASHLEY null, [place] - [facility] 3 12:34:55 Hypertensive disorder 26778659 Active 2022 RHIANNA ASHLEY null, [place] - [facility] 3 12:35:18 Hyperlipidemia 95536625 Active 2022 RHIANNA ASHLEY null, PA - [...] Name and Address Organization Details Recorded Time 596254 Non-stero idal anti-infl ammatory agent (product) medicatio n other Not available Not available 07/10/2022 12971 005 SNOMED RHIANNA RAMIREZ null, [place] - [facility] 12:29:05 859846 hazelnut allergeni c extract food headache Not available Not available 07/10/2022 82222 3 RxNorm RHIANNA RAMIREZ null, [place] - [...] DateTime 3 170.18 cm 2 35.6 kg/m2 241174. 47 g 97 % 97 % 62 /min 16 /min 97.9 [degF] RHIANNA Mcgrath [facility] 12:42:15 Social History Question Answer Notes [...] SNOMED-CT Code Diagnosis ICD10 Code Diagnosis Note [id number] [address] [place] [address] 03/30/2019 14:52:38 03/30/2019 15:26:03 [id number] [address] [place] [address] 03/24/2016 09:21:39 03/24/2016 09:58:51 [id number] [address] [place] [address] 03/03/2020 16:08:12 03/03/2020 17:27:39 [id number] Hardik Taylor MD [address] [place] [address] 07/10/2022 12:15:05 07/10/2022 13:10:07 Swelling of lower leg 623471025 R22.40 Tender swelling in the right posterior legCant rule out DVTPatient will go to [place] DAVE[facility] Concerns Section Related Observation LastModified by Organization Detai ls LastModified Time None Recorded Concern Status LastModified by Organization Details LastModified Time None Recorded Advance Directives Directive None Recorded Payers Encounter Date Sequence Insurance Name Policy Number Policy Prasad Covered Member ID Prasad Member ID Guarantor Name 03/24/2016 1 [employer] [id number] Major Salvador [id number] Major Salvador 03/03/2020 1 [employer] [id number] Major Salvador [id number] Major Salvador 07/10/2022 [facility] Major Salvador [id number] Major Salvador Notes Date Note Type Note Provider Name and Address Organization Details Recorded Time 07/10/2022 text/html KneeReported bypatient.Location :right Quality:throbbing; dull; deep; worsening Severity:moderate Duration:1 days Timing:cannot identify Context:cannot identify Associated Symptoms:no weakness; no numbness; no tingling;swelling; redness Previous Surgery:none Prior Imaging:none NO recent travel, no history Blood clots Hardik Taylor MD [facility] [place], [address], [place] - [facility] 07/11/2022 08:18:22
--- OUTSIDE RECORDS SUMMARY | 2024-03-29 11:38 | XMS_ITS | Encounter Summary ---
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 ([place]) Organization [facility] Address [address] [place] [address] Care Team Providers Care Compass Operator Name Role Phone LEV OCONNELL Primary [...] AETNA PREFERRED PROVIDER ORGANIZAT ION (PPO) DWAYNE VASQUEZ EMPLAdriane YEBIENVENIDO* Mar 02, 2023 [id number] [phone] ELIZABETH SMILEY JR PATIENT AETNA PREFERRED PROVIDER ORGANIZAT ION (PPO) FED EMPLO YEES Jan 26, 2020 [id number] ELIZABETH SMILEY JR PATIENT AETNA PREFERRED PROVIDER ORGANIZAT ION (PPO) DWAYNE AL EMPLO YEES Feb 25, 2016 [id number] ELIZABETH SMILEY JR PATIENT AETNA PREFERRED PROVIDER ORGANIZAT ION (PPO) DWAYNE PEDRO EMPL [facility] Feb 25, 2016 [id number] BALJIT BELCHERELIZABETH PATIENT AETNA PREFERRED PROVIDER ORGANIZAT ION (PPO) DWAYNE AL EMPL [facility] Feb 25, 2016 [id number] [id number] ELIZABETH SMILEY PATIENT AETNA PREFERRED PROVIDER ORGANIZAT ION (PPO) DWAYNE AL EMPLO MIMI Feb 24, 2016 [id number] ELIZABETH SMILEY PATIENT AETNA PHARMACY MANAGEMENT PRESCRIPT ION DWAYNE AL EMPLO NURYS Mar 02, 2023 [id number] ELIZABETH SIMLEY JR PATIENT AETNA PHARMACY MANAGEMENT PRESCRIPT ION DWAYNE AL EMPLO MIMI Jan 26, 2020 [id number] ELIZABETH SMILEY JR PATIENT AETNA PHARMACY MANAGEMENT PRESCRIPT ION ALICIAFT Feb 25, 2016 [id number] [phone] ELIZABETH SMILEY PATIENT AETNA PHARMACY MANAGEMENT PRESCRIPT ION DWAYNE AL EMPLO MIMI Feb 25, 2016 [id number] ELIZABETH SMILEY PATIENT AETNA RX PRESCRIPT ION DWAYNE AL EMPLO MIMI Feb 25, 2016 [id number] ELIZABETH SMILEY PATIENT AETNA RX PRESCRIPT ION FEHBP Feb 25, 2016 [id number] [id number] ELIZABETH SMILEY JR PATIENT AETNA RX PRESCRIPT ION DWAYNE AL EMPLO MIMI Feb 25, 2016 [id number] [id number] BALJIT BELCHERELIZABETH PATIENT [employer] POINT OF SERVICE TYCO Mar 20, 2002 [id number] ELIZABETH SMILEY PATIENT [employer]* POINT OF SERVICE Mar 20, 2002 [id number] BALJIT ELIZABETH PATIENT Selected Encounter This section includes the information on record at [place] for the Encounter. Date/Time Encounter Type Encounter Description Reason Provider Source Sep 30, 2023 04:02 PM Outpatient Encounter DERMATOLOGY ICD-10-CM L82.1 Other seborrheic keratosis CHARLIE GRAJEDA E Encounter Template Text not used by [place] Assessments - Encounter Diagnoses This section includes the primary and secondary diagnoses documented for the Encounter. Date/Time Primary/Secondary Diagnosis Diagnosis Name Provider Source Mar 25, 2024 12:12 PM PRIMARY Other seborrheic keratosis CHARLIE GRAJEDA [...] - MEDICINE [place] [facility] [place] [facility] Nov 28, 2023 07:35 PM AMBULATORY - MEDICINE [place] [facility] [place] [facility] Dec 29, 2023 01:30 PM AMBULATORY - MEDICINE [place] [facility] [place] [facility] Jan 13, 2024 01:00 PM AMBULATORY - MEDICINE [place] [facility] [place] [facility] Feb 20, 2024 01:00 PM AMBULATORY - MEDICINE [place] [facility] [place] [facility] Feb 27, 2024 04:00 PM AMBULATORY - MEDICINE [place] [facility] [place] [facility] Mar 04, 2024 10:15 AM AMBULATORY - MEDICINE [place] [facility] [place] [facility] Mar 30, 2024 01:00 PM AMBULATORY - MEDICINE [place] [facility] [place] [facility] Advance Directives: All historical and current [...] July 02, 2022 ADVANCE DIRECTIVE SANDRA [facility]KS [facility] Aug 07, 2021 ADVANCE DIRECTIVE RADHA SAHA IE Nov 28, 2020 ADVANCE DIRECTIVE GOLDIE DUTTA IE Encounter Notes: All associated encounter notes [...]
--- OUTSIDE RECORDS SUMMARY | 2024-03-29 11:38 | XMS_ITS | Clinical Summary ---
Author Organization [facility] Address [address] [place] [address] Phone Care Team Providers Care Atmospheric Scientist Name Role Phone Lev Christianson MD Primary [...] mouth 1 (one) time each day Active [place]-3 Fatty Acids (Fish Oil) 1000 MG capsule [...] Comment: focal segment[facility]ulos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
--- OUTSIDE RECORDS SUMMARY | 2024-03-29 11:38 | XMS_ITS ---
Author Organization [facility] Address [address] [facility] [place] [address] Care Team Providers Care Material Controller Name Role Phone Dylan Cat Primary Care Provider Unavailable Black, Cass Unavailable [phone] Allergies Allergen (clinical drug ingredient) Drug/Non Drug [...] Ordered Date Performed Result Body Sit e 01348-[id number] NAIL, 1-5 12/25/2023 N/A 52820-WQRG SKIN LESIONS, 2 TO 4 12/25/2023 N/A Encounters Encounter Location Date Provider Diagnosis [facility] [address] [address] 12/25/2023 Cass Black Type 2 diabetes mellitus [...] betadine Pending Test Test Name Order Date [id number] NAIL, 1-5 12/25/2023 50004-ODHY SKIN LESIONS, 2 TO 4 12/25/19 24 Next Appt Details Follow Up: prn, Reason: Provider Name:Cass Lugo , 06/24/2024 02:00:00 PM, [address] [place], [address], Procedure Notes * Category Sub-Category Detail Notes [...] as necessary. Patient chooses, no pharmaceutical tx (88190) Nail Reduction Nail Reduction Trimming of dyst rophic nails performed to reduce/remove overall nail length and girth, by manual and electrical means with use of a nail nipper and/or dremel, to more viable healthy nail plate or bed tissue 6-10 (G0127) Progress Notes * Major SMILEY JrDOB: (63 yo M)Acc No.[id number]:12/25/2023 Progress Note Patient:?Major Smiley Provider:?Cass LugoLACIE :1960???Age:63 Y???Sex:Male Moisés e:12/25/2023 Address:[address] [place] [address] [facility] Pcp:Dylan villalobos Subjective: * Chief Complaints: * [...] Uncomplicated (3)? Plan: * Treatment: 2.?Tinea unguium?Procedure: 40841-[id number] NAIL, 1-5 3.?Skin maceration? Start betadine.?? * Procedures:?Debride Nails 1-5:?Procedure:?Nail debridement performed extensively to reduce/remove overall nail length and girth, subungual debris, and necrotic tissue, by manual and electrical means by use of a nail nipper and/or dremel, to more viable healthy nail plate or bed tissue 1-5. Silver nitrate used for any petechial bleeding as necessary. Patient chooses, no pharmaceutical tx (04388).?Nail Reduction:?Nail Reduction?Trimming of dystrophic nails performed to reduce/remove overall nail length and girth, by manual and electrical means with use of a nail nipper and/or dremel, to more viable healthy nail plate or bed tissue 6-10 (G0127).? * Procedure Codes:?66571 DEBRI DE NAIL, 1-5, Modifiers: XS G0127 TRIMMING DYSTROPHIC NAILS ANY #, Modifiers: XS 75514 TRIM SKIN LESIONS, 2 TO 4, Modifiers: [...] for Oumou vásquez/Damian/Ayan on:?03/29/2024 10:26 AM EST History and Physical Notes * [...]
--- OUTSIDE RECORDS SUMMARY | 2024-03-29 11:38 | XMS_ITS ---
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 ([place]) Organization [facility] [place] Address [address] [place] [address] Care Team Providers Care Shrink Pit Supervisor Name Role Phone LEV OCONNELL Primary [...] DWAYNE AL EMPL YE* Mar 02, 2023 [id number] ELIZABETH SMILEY JR PATIENT AETNA PREFERRED PROVIDER ORGANIZAT ION (PPO) FED EMPLO YEES Jan 26, 2020 [id number] ELIZABETH SMILEY JR PATIENT AETNA PREFERRED PROVIDER ORGANIZAT ION (PPO) DWAYNE AL EMPL [facility] Feb 25, 2016 [id number] [phone] ELIZABETH SMILEY JR PATIENT AETNA PREFERRED PROVIDER ORGANIZAT ION (PPO) DWAYNE AL EMPL Feb 25, 2016 [id number] BALJIT ELIZABETH PATIENT AETNA PREFERRED PROVIDER ORGANIZAT ION (PPO) DWAYNE AL EMPLO MIMI Feb 25, 2016 [id number] BALJIT BELCHERELIZABETH PATIENT AETNA PREFERRED PROVIDER ORGANIZAT ION (PPO) DWAYNE AL EMPLO MIMI Feb 24, 2016 [id number] [phone] BALJIT ELIZABETH PATIENT AETNA PHARMACY MANAGEMENT PRESCRIPT ION DWAYNE AL EMPLO MIMI Mar 02, 2023 [id number] [phone] BALJIT BELCHERELIZABETH PATIENT AETNA PHARMACY MANAGEMENT PRESCRIPT ION DWAYNE AL EMPLO YEESTHER Jan 26, 2020 [id number] ELIZABETH SMILEY JR PATIENT AETNA PHARMACY MANAGEMENT PRESCRIPT [facility] Feb [facility], 2016 [id number] [phone] BALJIT ELIZABETH PATIENT AETNA PHARMACY MANAGEMENT PRESCRIPT ION DWAYNE AL EMPLO MIMI Feb 25, 2016 [id number] BALJIT ELIZABETH PATIENT AETNA RX PRESCRIPT ION FEHBP Feb 25, 2016 [id number] BALJIT BELCHERELIZABETH PATIENT AETNA RX PRESCRIPT ION DWAYNE AL EMPLO MIMI Feb 25, 2016 [id number] BALJIT BELCHERELIZABETH PATIENT AETNA RX PRESCRIPT ION DWAYNE AL EMPLO MIMI Feb 25, 2016 [id number] BALJIT ELIZABETH PATIENT [employer] POINT OF SERVICE TYCO Mar 20, 2002 [id number] BALJIT ELIZABETH PATIENT [employer]IG[employer]* POINT OF SERVICE Mar 20, 2002 [id number] ELIZABETH SMILEY PATIENT Selected Encounter This section includes the information on record at [place] for the Encounter. Date/Time Encounter Type Encounter Description Reason Pro vider Source Mar 29, 2024 08:49 AM Outpatient Encounter EVENT (HISTORICAL) IHE Encounter Template Text not used by [place] Plan of Treatment: Future Appointments (+ 6 months) and Future Tests (+/- 45 days) The Plan of Treatment section includes future care activities for the patient from all [place] treatmentfacilities. This section includes future appointments and future orders which are active, pending or scheduled. Future Appointments This section includes appointments that were scheduled to occur 6 months from the date of the Encounter, up to a maximum of 20 appointments. The data comes from all [place] treatment facilities. Appointment Date/Time Appointment Type Appointme nt Facility Name Mar 30, 2024 01:00 PM AM[facility]ULATORY [facility] [place] [facility] Apr 26, 2024 01:30 PM [facility] Jun 10, 2024 02:30 PM AMBULATORY - MEDICINE [facility] Active, Pending, and Scheduled Orders This section includes a listing of several types of active, pending, and scheduled orders, including clinic medications orders, diagnostic test orders, procedure orders and consult orders; where the start date of the order is 45 days before the date of the Encounter or 45 days after the date of theEncounter. The data comes from all [facility]. Test Date/Time Test Type Test Details Facility Name Feb 24, 2024 07:33 AM Consult Order COMMUNITY CARE-NEPHROLOGY [facility] [place] Mar 04, 2024 11:41 AM Consult Order PHYSICAL T HERAPY/[facility] OUTPT [facility] Mar 26, 2024 11:15 AM Consult Order CARDIOLOGY ONE [facility] Lab Results: +/- 30 days of the encounter This section includes the Chemistry and Hematology Lab Results on record with [place] for the patient. Radiology Reports and Pathology Reports are provided separately, in subsequent sections. Lab Results This section contains the Chemistry/Hematology Results that were resulted 30 days before or 30 daysafter the date of the Encounter. Date/Time Source Result Type Result - Unit Interpretation Reference Range Comment Mar 11, 2024 11:22 AM [place] HEMOGLOBIN A1C PANEL Specimen Type: BLOOD Comment: [...] Sep 06, 2023 03:38 PM Reporting Lab: [facility] [address] [address] Performing Lab: [facility] [address] [address] HEMOGLOBIN A1C 7.7 H 4.0-5.6 Mar 11, 2024 11:22 AM [place] LIPID PANEL FASTING Specimen Type: SERUM No comment entered. Ordering Provider: LEV LIZAMA Report Released Date/Time: Sep 06, 2023 03:38 PM Reporting Lab: [facility] [address] [address] Performing Lab: [facility] [address] [address] CHOLESTEROL 166 mg/dL TRIGLYCERIDE 137 mg/dL 0-150 LDL calculated 109 mg/dL 0-129 CHOL/HDL 5.5 HDL CHOLESTEROL 30 mg/dL L 40-60 Mar 11, 2024 11:22 AM [place] TSH Specimen Type: SERUM No comment entered. Ordering Provider: LEV LIZAMA Report Released Date/Time: Sep 06, 2023 03:38 PM Reporting Lab: [facility] [address] [address] Performing Lab: [place] [facility] [place] [facility] [address] [address] TSH 2.32 u[IU]/mL 0.35-5.00 Mar 11, 2024 11:22 AM [place] LIVER FUNCTION Specimen Type: SERUM No comment entered. Ordering Provider: LEV LIZAMA Report Released Date/Time: Sep 06, 2023 03:38 PM Reporting Lab: [facility] [address] [address] Performing Lab: [place] [facility] [address] [address] PROTEIN,TOTAL 6.6 g/dL 6.0-8.3 ALBUMIN 3.7 g/dL 3.5-5.0 ALKALINE PHOSPHATASE 51 U/L 40-150 AST 18 U/L 5-34 ALT 29 U/L BILIRUBIN, TOTAL 0.4 mg/dL 0.2-1.2 Mar 11, 2024 11:22 AM [place] BASIC METABOLIC PANEL (fasting) Specime n Type: SERUM No comment entered. Ordering Provider: LEV LIZAMA Report Released Date/Time: Sep 06, 2023 03:38 PM Reporting Lab: [address] [address] Performing Lab: [address] [address] UREA NITROGEN 40 mg/dL H 7-25 GLUCOSE 133 mg/dL H 65-100 SODIUM 138 mmol/L 135-145 POTASSIUM 5.2 mmol/L H 3.5-5.0 CHLORIDE 103 mmol/L 100-110 CO2 26 meq/L 20-30 CREATININE, Serum 2.34 mg/dL H 0.50-1.40 eGFR(CKD-EPI 2020) 30 mL/min L >60 Mar 11, 2024 11:22 AM [place] MICROALBUMIN CREATININE RATIO PANEL Spe cimen Type: URINE No comment entered. Ordering Provider: LEV LIZAMA Report Released Date/Time: Sep 06, 2023 03:38 PM Reporting Lab: [address] [address] Performing Lab: [address] [address] MICROALBUMIN/C REATININE RATIO 868.1 mg/g H 0-29.9 MICROALBUMIN,Q UANTITATIVE 77.3 mg/dL RR UNAVAIL CREATININE URINE 89.04 mg/dL Mar 11, 2024 11:22 AM [place] CBC AND DIFF (AUTO) Specimen Type: BLOOD No comment entered. Ordering Provider: LEV LIZAMA Report Released Date/Time: Sep 06, 2023 03:38 PM Reporting Lab: [facility] [address] [address] Performing Lab: [facility] [address] [address] WBC 4.83 10*3/uL 4.50-11.00 RBC 5.19 10*6/uL [...] and tobacco- related health factors from the [place] facility where the Encounter took place. Current Smoking Status This section includes the most current smoking, or tobacco-related health factor, from the [place] facility where the Encounter took place. Date/Time Current Smoking Status Comment Corina alvares Feb 18, 2023 02:31 PM VA-TOBACCO QUIT 15 YRS OR MORE [facility] Tobacco Use History This section includes a history of the smoking, or tobacco-related health factors, that were collected on or before the date of the Encounter. The data comes from the [place] facility where the Encounter took place. Date/Time Smoking Status/Tobacco Use Comment F acility Feb 18, 2023 02:31 PM [place]-TOBACCO QUIT 15 YRS OR MORE [facility] Dec 31, 2021 01:00 PM [place]-TOBACCO FORMER USER [facility] Dec 31, 2021 01:00 PM [place]-TOBACCO QUIT 15 YRS OR MORE [facility] Advance Directives: All historical and current Section Date Range: From patient's date of to the date document was created. This section includes ALL of a patient's completed or amended [place] Advance and Rescinded Directives. The entries below indicate that a directive exists for the patient, but an actual copy is not included with this document. The data comes from all [place] facilities. Date Advance Directives Provider Source July 02, 2022 ADVANCE DIRECTIVE SANDRA BROOKS [facility] Aug 07, 2021 ADVANCE DIRECTIVE RADHA SAHA [facility] Nov 28, 2020 ADVANCE DIRECTIVE GOLDIE DUTTA [facility]
--- OUTSIDE RECORDS SUMMARY | 2024-03-29 11:38 | XMS_ITS ---
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 [place] Organization [facility] [place] Address [address] [place] [address] Care Team Providers Care Credit Risk Specialist Name Role Phone LEV OCONNELL Primary [...] DWAYNE [place] EMPL YE* Mar 02, 2023 [id number] ELIZABETH SMILEY JR PATIENT AET[employer] PREFERRED PROVIDER ORGANIZAT ION (PPO) FED EMPLO YEES Jan 26, 2020 [id number] [phone] ELIZABETH SMILEY JR PATIENT AETNA PREFERRED PROVIDER ORGANIZAT ION (PPO) DW[place]NE [place] EMPL [facility] Feb 25, 2016 [id number] [phone] ELIZABETH SMILEY JR PATIENT AETNA PREFERRED PROVIDER ORGANIZAT ION (PPO) DW[place]NE [place] EMPL Feb 25, 2016 [id number] BALJIT ELIZABETH PATIENT AETNA PREFERRED PROVIDER ORGANIZAT ION (PPO) DW[place]NE [place] EMPLO MIMI Feb 25, 2016 [id number] BALJIT BELCHERELIZABETH PATIENT AETNA PREFERRED PROVIDER ORGANIZAT ION (PPO) DWAYNE [place] EMPLO MIMI Feb 24, 2016 [id number] BALJIT ELIZABETH PATIENT AETNA PHARMACY MANAGEMENT PRESCRIPT ION DWAYNE [place] EMPLO MIMI Mar 02, 2023 [id number] BALJIT BELCHERELIZABETH PATIENT AETNA PHARMACY MANAGEMENT PRESCRIPT ION DW[place]NE [place] EMPLO YEESTHER Jan 26, 2020 [id number] ELIZABETH SMILEY JR PATIENT AETNA PHARMACY MANAGEMENT PRESCRIPT ION DW[place] EMPLO MIMI Feb 25, 2016 [id number] [phone] BALJIT ELIZABETH PATIENT AETNA PHARMACY MANAGEMENT PRESCRIPT ION KRAFT Feb 25, 2016 [id number] [phone] BALJIT ELIZABETH PATIENT AETNA RX PRESCRIPT ION FEHBP Feb 25, 2016 [id number] BALJIT BELCHERELIZABETH PATIENT AETNA RX PRESCRIPT ION [place] EMPLO MIMI Feb 25, 2016 [id number] BALJIT BELCHERELIZABETH PATIENT AETNA RX PRESCRIPT ION [place] EMPLO YEESTHER Feb 25, 2016 [id number] BALJIT ELIZABETH PATIENT [employer] POINT OF SERVICE TYCO Mar 20, 2002 [id number] BALJIT ELIZABETH PATIENT [employer]IGNA* POINT OF SERVICE Mar 20, 2002 [id number] ELIZABETH SMILEY PATIENT Selected Encounter This section includes the information on record at [place] for the Encounter. Date/Time Encounter Type Encounter Description Reason Pro vider Source Mar 22, 2024 12:00 AM Outpatient Encounter EVENT (HISTORICAL) IHE Encounter Template Text not used by [facility] Plan of Treatment: Future Appointments (+ 6 [...] 30, 2024 01:00 PM AMBULATORY [facility]ICINE [facility] Apr 26, 2024 01:30 PM [facility] Jun 10, 2024 02:30 PM AMBULATORY - MEDICINE [facility] Active, Pending, and Scheduled Orders This section includes a listing of several types of active, pending, and scheduled orders, including clinic medications orders, diagnostic test orders, procedure orders and consult orders; where the start date of the order is 45 days before the date of the Encounter or 45 days after the date of theEncounter. The data comes from all [place] treatment facilities. Test Date/Time Test Type Test Details Facility Name Feb 24, 2024 07:33 AM Consult Order COMMUNITY CARE-NEPHROLOGY Cons Quality Assurance Monitor [facility] Choice [facility] Mar 04, 2024 11:41 AM Consult Order PHYSICAL T HERAPY/[facility] OUTPT Cons Quality Assurance Monitor Final's Choice [facility] Mar 26, 2024 11:15 AM Consult Order CARDIOLOGY ONE Cons Quality Assurance Monitor [facility] Lab Results: +/- 30 days of the encounter This section includes the Chemistry and Hematology Lab Results on record with [place] for the patient. Radiology Reports and Pathology Reports are provided separately, in subsequent sections. Lab Results This section contains the Chemistry/Hematology Results that were resulted 30 days before or 30 daysafter the date of the Encounter. Date/Time Source Result Type Result - Unit Interpretation Reference Range Comment Mar 11, 2024 11:22 AM [facility] TSH Specimen Type: SERUM No comment entered. Ordering Provider: LEV LIZAMA Report Released Date/Time: Sep 06, 2023 03:38 PM Reporting Lab: [facility] [address] [address] Performing Lab: [address] [address] TSH 2.32 u[IU]/mL 0.35-5.00 Mar 11, 2024 11:22 AM [facility] HEMOGLOBIN A1C PANEL Specimen Type: BLOOD Comment: [...] Sep 06, 2023 03:38 PM Reporting Lab: [address] [address] Performing Lab: [address] [address] HEMOGLOBIN A1C 7.7 H 4.0-5.6 Mar 11, 2024 11:22 AM [facility] LIVER FUNCTION Specimen Type: SERUM No comment entered. Ordering Provider: LEV LIZAMA Report Released Date/Time: Sep 06, 2023 03:38 PM Reporting Lab: [address] [address] Performing Lab: [address] [address] PROTEIN,TOTAL 6.6 g/dL 6.0-8.3 ALBUMIN 3.7 g/dL 3.5-5.0 ALKALINE PHOSPHATASE 51 U/L 40-150 AST 18 U/L 5-34 ALT 29 U/L BILIRUBIN, TOTAL 0.4 mg/dL 0.2-1.2 Mar 11, 2024 11:22 AM [facility] BASIC METABOLIC PANEL (fasting) Specime n Type: SERUM No comment entered. Ordering Provider: LEV LIZAMA Report Released Date/Time: Sep 06, 2023 03:38 PM Reporting Lab: [facility] [address] [address] Performing Lab: [address] [address] UREA NITROGEN 40 mg/dL H 7-25 GLUCOSE 133 mg/dL H 65-100 SODIUM 138 mmol/L 135-145 POTASSIUM 5.2 mmol/L H 3.5-5.0 CHLORIDE 103 mmol/L 100-110 CO2 26 meq/L 20-30 CREATININE, Serum 2.34 mg/dL H 0.50-1.40 eGFR(CKD-EPI 2020) 30 mL/min L >60 Mar 11, 2024 11:22 AM [facility] LIPID PANEL FASTING Specimen Type: SERUM No comment entered. Ordering Provider: LEV LIZAMA Report Released Date/Time: Sep 06, 2023 03:38 PM Reporting Lab: [address] [address] Performing Lab: [address] [address] CHOLESTEROL 166 mg/dL TRIGLYCERIDE 137 mg/dL 0-150 LDL calculated 109 mg/dL 0-129 CHOL/HDL 5.5 HDL CHOLESTEROL 30 mg/dL L 40-60 Mar 11, 2024 11:22 AM [facility] MICROALBUMIN CREATININE RATIO PANEL Spe cimen Type: URINE No comment entered. Ordering Provider: LEV LIZAMA Report Released Date/Time: Sep 06, 2023 03:38 PM Reporting Lab: [address] [address] Performing Lab: [address] [address] MICROALBUMIN/C REATININE RATIO 868.1 mg/g H 0-29.9 MICROALBUMIN,Q UANTITATIVE 77.3 mg/dL RR UNAVAIL CREATININE URINE 89.04 mg/dL Mar 11, 2024 11:22 AM [facility] CBC AND DIFF (AUTO) Specimen Type: BLOOD No comment entered. Ordering Provider: LEV LIZAMA Report Released Date/Time: Sep 06, 2023 03:38 PM Reporting Lab: [facility] [address] [facility] [address] Performing Lab: [facility] [address] [address] WBC 4.83 10*3/uL 4.50-11.00 RBC 5.19 10*6/uL [...] 18, 2023 02:31 PM VA-TOBACCO FORMER USER [facility] Tobacco Use History This section includes a history of the smoking, or tobacco-related health factors, that were collected on or before the date of the Encounter. The data comes from the [place] facility where the Encounter took place. Date/Time Smoking Status/Tobacco Use Comment F acility Feb 18, 2023 02:31 PM VA-TOBACCO QUIT 15 YRS OR MORE [facility] Dec 31, 2021 01:00 PM [place]-TOBACCO FORMER USER [facility] Dec 31, 2021 01:00 PM [place]-TOBACCO QUIT 15 YRS OR MORE [facility] Advance Directives: All historical and [...] July 02, 2022 ADVANCE DIRECTIVE SANDRA BROOKS [facility] Aug 07, 2021 ADVANCE DIRECTIVE RADHA SAHA [facility] Nov 28, 2020 ADVANCE DIRECTIVE GOLDIE DUTTA [facility] Encounter Notes: All associated encounter notes This section contains the clinical notes associated to the Encounter. Date/Time Encounter Note(s) Provider Source Mar 22, 2024 12:00 AM NONVA NOTE: LOCAL TITLE: NON-VA HOSPITALIZATIONS/ER STANDARD TITLE: NONVA NOTE DATE OF NOTE: MAR 22, 2024 ENTRY DATE: MAR 27, 2024@07:32:46 AUTHOR: GAURAV DUNLAP [place] EXP COSIGNER: URGENCY: STATUS: COMPLETED VistA Imaging - Scanned Document SCANNED DOCUMENT SIGNATURE NOT REQUIRED Electronically Filed: 03/27/2024 by: GAURAV DUNLAP CAR BARN LABORER GAURAV DUNLAP [facility]
--- OUTSIDE RECORDS SUMMARY | 2024-03-29 11:38 | XMS_ITS | Clinical Summary ---
Author Organization [facility] Address [address] [place] [address] Care Team Providers Care Bitumen Plant Operator Name Role Phone Unavailable Primary Care Provider [...]
--- OUTSIDE RECORDS SUMMARY | 2024-03-29 11:39 | XMS_ITS | Continuity of Care Document ---
Author Organization [facility] Address [address], [address] [place] [address]- Care Team Providers Care Returned Goods Sorter Name Role Phone Ben Newell MD, Dylan Ferro Primary Care Physician Encounter [facility] Date(s): 02/06/24 - 03/07/24 [facility] [address], [address] [place] [address]- Encounter Type: Triage Allergies, Adverse Reactions, Alerts [...] toxoids (Td) 8 04/15/02 Given 1Location History: [facility] 2Admin Note: vna 3Result Comment: [11/16/2014] administered at [place] 4Location History: [place] 5Admin Note[place] [place] Note[place] 7Admin Note: rcvd elsewhere 8Admin Note: historical [...] 11 Refills, Maintenance, 07/15/14 10:43:18 AM EDT, [facility]/pharmacy #[id number], 2 sprays Nasal Daily,x30 days Start [...] Care Team Personnel Name: Tanna Almaraz Position: [facility] Nurse Member Role: Lifetime Consulting Physician Name: Ben Newell MD, Dylan Ferro Position: Reference Physician Member Role: PCP Address: [address] [place] [address] Telecom: Care Team Related Persons Name: YVES SMILEY Insurance Providers Guarantor name: DENISE Health Plan Information #: 1 Payer: NAKITA MENDOZA Member Number: NA Policy Number: NA Group Number: NA
--- OUTSIDE RECORDS SUMMARY | 2024-03-29 11:39 | XMS_ITS | Encounter Summary ---
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 [place] Organization [facility] [place] Address [address] [place] [address] Care Team Providers Care Tape Folding Machine Operator Name Role Phone LEV OCONNELL [...] DWAYNE [place] EMPL YE* Mar 02, 2023 [id number] ELIZABETH SMILEY JR PATIENT AET[employer] PREFERRED PROVIDER ORGANIZAT ION (PPO) FED EMPLO YEES Jan 26, 2020 [id number] [phone] ELIZABETH SMILEY JR PATIENT A[employer] PREFERRED PROVIDER ORGANIZAT ION (PPO) DWAYNE AL EMPL [facility] Feb 25, 2016 [id number] [phone] ELIZABETH SMILEY JR PATIENT AETNA PREFERRED PROVIDER ORGANIZAT ION (PPO) DWAYNE [place] EMPL Feb 25, 2016 [id number] BALJIT ELIZABETH PATIENT A[employer] PREFERRED PROVIDER ORGANIZAT ION (PPO) DWAYNE [place] EMPLO MIMI Feb 25, 2016 [id number] BALJIT BELCHERELIZABETH PATIENT AETNA PREFERRED PROVIDER ORGANIZAT ION (PPO) DW[place]NE [place] EMPLO MIMI Feb 24, 2016 [id number] BALJIT ELIZABETH PATIENT [employer] PHARMACY MANAGEMENT PRESCRIPT ION DWAYNE [place] EMPLO MIMI Mar 02, 2023 [id number] [phone] BALJIT BELCHERELIZABETH PATIENT AETNA PHARMACY MANAGEMENT PRESCRIPT ION [place] EMPLO YEBIENVENIDO Jan 26, 2020 [id number] ELIZABETH SMILEY JR PATIENT AETNA PHARMACY MANAGEMENT PRESCRIPT ION [facility] Feb 25, 2016 [id number] [phone] BALJIT ELIZABETH PATIENT AET[employer] PHARMACY MANAGEMENT PRESCRIPT ION DWAYNE [place] EMPLO MIMI Feb 25, 2016 [id number] [phone] BALJIT ELIZABETH PATIENT AETNA RX PRESCRIPT ION [place] EMPLO MIMI Feb 25, 2016 [id number] BALJIT ELIZABETH PATIENT AETNA RX PRESCRIPT ION FEHBP Feb 25, 2016 [id number] BALJIT BELCHERELIZABETH PATIENT AETNA RX PRESCRIPT ION [place] EMPLO MIMI Feb 25, 2016 [id number] ELIZABETH SMILEY JR PATIENT [employer] POINT OF SERVICE TYCO Mar 20, 2002 [id number] BALJIT ELIZABETH PATIENT CIGNA* POINT OF SERVICE Mar 20, 2002 [id number] ELIZABETH SMILEY PATIENT Selected Encounter This [...] 30, 2024 01:00 PM [facility] Apr 26, 2024 01:30 PM [facility] Jun 10, 2024 02:30 PM AMBULATORY - MEDICINE [facility] Active, Pending, and Scheduled Orders This section includes a listing of several types of active, pending, and scheduled orders, including clinic medications orders, diagnostic test orders, procedure orders and consult orders; where the start date of the order is 45 days before the date of the Encounter or 45 days after the date of theEncounter. The data comes from all [facility]. Test Date/Time Test Type Test Details Facility Name Feb 24, 2024 07:33 AM Consult Order COMMUNITY CARE-NEPHROLOGY [facility] Hospitality Host's Choice [facility] Mar 04, 2024 11:41 AM Consult Order PHYSICAL T HERAPY[facility] Mar 26, 2024 11:15 AM Consult Order CARDIOLOGY ONE Cons Hospitality Host's [facility] Lab Results: +/- 30 days of [...] Range Comment Mar 11, 2024 11:22 AM [place] HEMOGLOBIN A1C PANEL Specimen Type: BLOOD [...] Sep 06, 2023 03:38 PM Reporting Lab: [address] [address] Performing Lab: [address] [address] HEMOGLOBIN A1C 7.7 H 4.0-5.6 Mar 11, 2024 11:22 AM [place] LIPID PANEL FASTING Specimen Type: SERUM No comment entered. Ordering Provider: LEV LIZAMA Report Released Date/Time: Sep 06, 2023 03:38 PM Reporting Lab: [address] [address] Performing Lab: [address] [address] CHOLESTEROL 166 mg/dL TRIGLYCERIDE 137 mg/dL 0-150 LDL calculated 109 mg/dL 0-129 CHOL/HDL 5.5 HDL CHOLESTEROL 30 mg/dL L 40-60 Mar 11, 2024 11:22 AM [place] LIVER FUNCTION Specimen Type: SERUM No comment entered. Ordering Provider: LEV LIZAMA Report Released Date/Time: Sep 06, 2023 03:38 PM Reporting Lab: [address] [address] Performing Lab: [address] [address] PROTEIN,TOTAL 6.6 g/dL 6.0-8.3 ALBUMIN 3.7 g/dL 3.5-5.0 ALKALINE PHOSPHATASE 51 U/L 40-150 AST 18 U/L 5-34 ALT 29 U/L BILIRUBIN, TOTAL 0.4 mg/dL 0.2-1.2 Mar 11, 2024 11:22 AM [place] TSH Specimen Type: SERUM No comment entered. Ordering Provider: LEV LIZAMA Report Released Date/Time: Sep 06, 2023 03:38 PM Reporting Lab: [address] [address] Performing Lab: [address] [address] TSH 2.32 u[IU]/mL 0.35-5.00 Mar 11, 2024 11:22 AM [place] BASIC METABOLIC PANEL (fasting) Specime n Type: SERUM No comment entered. Ordering Provider: LEV LIZAMA Report Released Date/Time: Sep 06, 2023 03:38 PM Reporting Lab: [address] [address] Performing Lab: [address] [address] UREA NITROGEN 40 mg/dL H 7-25 GLUCOSE 133 mg/dL H 65-100 SODIUM 138 mmol/L 135-145 POTASSIUM 5.2 mmol/L H 3.5-5.0 CHLORIDE 103 mmol/L 100-110 CO2 26 meq/L 20-30 CREATININE, Serum 2.34 mg/dL H 0.50-1.40 eGFR(CKD-EPI 2020) 30 mL/min L >60 Mar 11, 2024 11:22 AM [place] MICROALBUMIN CREATININE RATIO PANEL Spe cimen Type: URINE No comment entered. Ordering Provider: LEV LIZAMA Report Released Date/Time: Sep 06, 2023 03:38 PM Reporting Lab: [address] [address] Performing Lab: [address] [address] MICROALBUMIN/C REATININE RATIO 868.1 mg/g H 0-29.9 MICROALBUMIN,Q UANTITATIVE 77.3 mg/dL RR UNAVAIL CREATININE URINE 89.04 mg/dL Mar 11, 2024 11:22 AM [place] CBC AND DIFF (AUTO) Specimen Type: BLOOD No comment entered. Ordering Provider: LEV LIZAMA Report Released Date/Time: Sep 06, 2023 03:38 PM Reporting Lab: [facility] [address] [address] Performing Lab: [facility] [address] [address] WBC 4.83 10*3/uL 4.50-11.00 RBC 5.19 10*6/uL [...] 18, 2023 02:31 PM VA-TOBACCO FORMER USER [facility] Tobacco Use History This section includes a history of the smoking, or tobacco-related health factors, that were collected on or before the date of the Encounter. The data comes from the [place] facility where the Encounter took place. Date/Time Smoking Status/Tobacco Use Comment F acility Feb 18, 2023 02:31 PM [facility]IT [facility]RS [facility] Dec 31, 2021 01:00 PM [place]-TOBACCO FORMER USER [facility] Dec 31, 2021 01:00 PM [place]-TOBACCO QUIT 15 YRS OR MORE [facility] Advance Directives: All historical and [...] Encounter. 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 I am looking for a letter explaining my ongoing Sciatica Issues to support obtaining a medical accommodation to become a Remote Worker. I am looking for a letter explaining my ongoing issues (in your words) for the following issues: ? Herniation June of 2016. ? [facility] Friday to [facility] with a weekend stay. ? Discectomy of L5/S1 in Sep 2016. ? Partial fusion of L5/S1 in April 2017. ? Another Herniation on Nov 2017, which lead to attempts at PT, Acupressure, Acupuncture, and the use of multiple medications to control extreme muscle cramping and sciatic issues. ? [place] cortisone shots starting in 2022 and continues. ? Sep 2023, new pinching in the lower back making the sciatica issues escalate. ? Dec 2023 a broken screw in the partial fusion hardware (confirmed by X-rays). ? I have been an ongoing patient with the [facility] Clinic at the [facility] since late 2018. Driving in a car for extended periods (over 15 minutes) causes a flare up of Sciatic issues which causes pain and/or discomfort to walk, stand or sit; making it difficult to work. Eliminating the drive to an office 30 minutes away, minimizes flair ups making a full workday more possible. /bienvenido/ SANDRA MENESES Signed: 03/29/2024 08:49 Receipt Acknowledged By: * AWAITING SIGNATURE * MAXIMO HOFFMAN * AWAITING SIGNATURE * STEVEN DIAL [facility] [place] [facility]
--- OUTSIDE RECORDS SUMMARY | 2024-03-29 11:39 | XMS_ITS | Encounter Summary ---
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 Organization [facility] Address [address] [place] [address] Care Team Providers Care Datastage Consultant Name Role Phone LEV OCONNELL Primary [...] PREFERRED PROVIDER ORGANIZAT ION (PPO) [facility] Mar 02, 2023 [id number] ELIZABETH SMILEY JR PATIENT [employer] PREFERRED PROVIDER ORGANIZAT ION (PPO) FED EMPLO YE[facility] Jan 26, 2020 [id number] ELIZABETH SMILEY JR PATIENT [employer] PREFERRED PROVIDER ORGANIZAT ION (PPO) [facility] Feb 25, 2016 [id number] ELIZABETH SMILEY JR PATIENT [employer] PREFERRED PROVIDER ORGANIZAT ION (PPO) [facility] Feb 25, 2016 [id number] BALJIT ELIZABETH PATIENT [employer] PREFERRED PROVIDER ORGANIZAT ION (PPO) [facility] Feb 25, 2016 [id number] BALJIT ELIZABETH BELCHER PATIENT [employer] PREFERRED PROVIDER ORGANIZAT ION (PPO) [facility] Feb 24, 2016 [id number] BALJIT ELIZABETH PATIENT [employer] PHARMACY MANAGEMENT PRESCRIPT ION [facility] Mar 02, 2023 [id number] BALJIT BELCHERELIZABETH PATIENT [employer] PHARMACY MANAGEMENT PRESCRIPT ION [facility] Jan 26, 2020 [id number] BALJIT BELCHERELIZABETH PATIENT [employer] PHARMACY MANAGEMENT PRESCRIPT ION [facility] Feb 25, 2016 [id number] BALJIT ELIZABETH PATIENT [employer] PHARMACY MANAGEMENT PRESCRIPT [facility]ON [facility] Feb 25, 2016 [id number] BALJIT ELIZABETH PATIENT [employer] RX PRESCRIPT ION [facility] Feb 25, 2016 [id number] BALJIT ELIZABETH PATIENT [employer] RX PRESCRIPT ION [facility] Feb 25, 2016 [id number] BALJIT BELCHERELIZABETH PATIENT [employer] RX PRESCRIPT ION [facility] Feb 25, 2016 [id number] ELIZABETH SMILEY JR PATIENT [employer] POINT OF SERVICE [employer] Mar 20, 2002 [id number] BALJIT ELIZABETH PATIENT [employer]* POINT OF SERVICE Mar 20, 2002 [id number] ELIZABETH SMILEY PATIENT Selected Encounter This section includes the information on record at [place] for the Encounter. Date/Time Encounter Type Encounter Description Reason Pro vider Source Mar 04, 2024 10:15 AM Outpatient Encounter PAIN CLINIC [facility] Encounter Template Text not used by [place] Plan of Treatment: Future Appointments (+ 6 months) and Future Tests (+/- 45 days) The Plan of Treatment section includes future care activities for the [place] [facility] [place] [facility] This section includes future appointments [...] 30, 2024 01:00 PM [place] [place] [facility] Apr 26, 2024 01:30 [facility] Jun 10, 2024 02:30 PM AMBULATORY - MEDICINE [facility] Active, Pending, and Scheduled Orders This section includes a listing of several types of active, pending, and scheduled orders, including clinic medications orders, diagnostic test orders, procedure orders and consult orders; where the start date of the order is 45 days before the date of the Encounter or 45 days after the date of theEncounter. The data comes from all [place] treatment facilities. Test Date/Time Test Type Test Details Facility Name Feb 24, 2024 07:33 AM Consult Order COMMUNITY CARE-NEPHROLOGY [facility] [employer] [facility] Mar 04, 2024 11:41 AM Consult Order PHYSICAL T HERAPY/NHM OUTPT [facility] Mar 26, 2024 11:15 AM Consult Order CARDIOLOGY [facility] Firmware Architect's [facility] Lab Results: +/- 30 days [...] Range Comment Mar 11, 2024 11:22 AM [facility] HEMOGLOBIN A1C PANEL Specimen Type: BLOOD Comment: [...] Sep 06, 2023 03:38 PM Reporting Lab: [facility] [address] [facility] [address] Performing Lab: [facility] [address] HEMOGLOBIN A1C 7.7 H 4.0-5.6 Mar 11, 2024 11:22 AM [facility] LIPID PANEL FASTING Specimen Type: SERUM No comment entered. Ordering Provider: LEV LIZAMA Report Released Date/Time: Sep 06, 2023 03:38 PM Reporting Lab: [facility] [address] [address] Performing Lab: [facility] [address] [address] CHOLESTEROL 166 mg/dL TRIGLYCERIDE 137 mg/dL 0-150 LDL calculated 109 mg/dL 0-129 CHOL/HDL 5.5 HDL CHOLESTEROL 30 mg/dL L 40-60 Mar 11, 2024 11:22 AM [facility] TSH Specimen Type: SERUM No comment entered. Ordering Provider: LEV LIZAMA Report Released Date/Time: Sep 06, 2023 03:38 PM Reporting Lab: [facility] [address] [address] Performing Lab: [facility] [address] [address] TSH 2.32 u[IU]/mL 0.35-5.00 Mar 11, 2024 11:22 AM [facility] LIVER FUNCTION Specimen Type: SERUM No comment entered. Ordering Provider: LEV LIZAMA Report Released Date/Time: Sep 06, 2023 03:38 PM Reporting Lab: [facility] [address] Performing Lab: [facility] [address] [address] PROTEIN,TOTAL 6.6 g/dL 6.0-8.3 ALBUMIN 3.7 g/dL 3.5-5.0 ALKALINE PHOSPHATASE 51 U/L 40-150 AST 18 U/L 5-34 ALT 29 U/L BILIRUBIN, TOTAL 0.4 mg/dL 0.2-1.2 Mar 11, 2024 11:22 AM [facility] BASIC METABOLIC PANEL (fasting) Specime n Type: SERUM No comment entered. Ordering Provider: LEV LIZAMA Report Released Date/Time: Sep 06, 2023 03:38 PM Reporting Lab: [address] [address] Performing Lab: [address] [address] UREA NITROGEN 40 mg/dL H 7-25 GLUCOSE 133 mg/dL H 65-100 SODIUM 138 mmol/L 135-145 POTASSIUM 5.2 mmol/L H 3.5-5.0 CHLORIDE 103 mmol/L 100-110 CO2 26 meq/L 20-30 CREATININE, Serum 2.34 mg/dL H 0.50-1.40 eGFR(CKD-EPI 2020) 30 mL/min L >60 Mar 11, 2024 11:22 AM [facility] MICROALBUMIN CREATININE RATIO PANEL Spe cimen Type: URINE No comment entered. Ordering Provider: LEV LIZAMA Report Released Date/Time: Sep 06, 2023 03:38 PM Reporting Lab: [address] [address] Performing Lab: [address] [address] MICROALBUMIN/C REATININE RATIO 868.1 mg/g H 0-29.9 MICROALBUMIN,Q UANTITATIVE 77.3 mg/dL RR UNAVAIL CREATININE URINE 89.04 mg/dL Mar 11, 2024 11:22 AM [facility] CBC AND DIFF (AUTO) Specimen Type: BLOOD No comment entered. Ordering Provider: LEV LIZAMA Report Released Date/Time: Sep 06, 2023 03:38 PM Reporting Lab: [address] [place] [address] Performing Lab: [facility] [address] [facility] [address] WBC 4.83 10*3/uL 4.50-11.00 RBC 5.19 10*6/uL [...] 18, 2023 02:31 PM [place]-TOBAC[place] FORMER USER [facility] Tobacco Use History This section includes a history of the smoking, or tobacco-related health factors, that were collected on or before the date of the Encounter. The data comes from the [place] facility where the Encounter took place. Date/Time Smoking Status/Tobacco Use Comment F acility Feb 18, 2023 02:31 PM [place] QU[place] 15 YRS OR MORE [facility] Dec 31, 2021 01:00 PM [place] FORMER US[place] [facility] Dec 31, 2021 01:00 PM [place] 15 YRS OR MORE [facility] Advance Directives: All historical and [...] Aug 07, 2021 ADVANCE DIRECTIVE RADHA SAHA [facility] Nov 28, 2020 ADVANCE DIRECTIVE [facility]
--- OUTSIDE RECORDS SUMMARY | 2024-03-29 11:39 | XMS_ITS ---
Author Organization [facility] Address [address] [place] [address] Care Team Providers Care Materials Scheduler Name Role Phone Dylan Cat Primary Care Provider Unavailable Black, Cass Unavailable [phone] Allergies Allergen (clinical drug ingredient) Drug/Non Drug [...] Ordered Date Performed Result Body Sit e 07053-[id number] NAIL, 1-5 06/26/2023 N/A [id number] DYSTROPHIC NAILS ANY # 06/26/2023 N/A Encounters Encounter Location Date Provider Diagnosis [facility] [place] [address] [place] [address] 06/26/2023 Cass Black Type 2 diabetes mellitus [...] betadine Pending Test Test Name Order Date [id number] NAIL, 1-5 06/26/2023 [id number] DYSTROPHIC NAILS ANY # Next Appt Details Follow Up: prn, Reason: Provider Name:Cass Lugo , 06/24/2024 02:00:00 PM, [address] [place] [address], [phone], Procedure Notes * Category Sub-Category Detail Notes [...] as necessary. Patient chooses, no pharmaceutical tx (11403) Nail Reduction Nail Reduction Trimming of dyst rophic nails performed to reduce/remove overall nail length and girth, by manual and electrical means with use of a nail nipper and/or dremel, to more viable healthy nail plate or bed tissue 6-10 (G0127) Progress Notes * Major SMILEY JrDOB: (63 yo M)Acc No.[id number]:06/26/2023 Progress Note Patient:?Major Smiley Provider:?Cass Lugo DPM :1960???Age:63 Y???Sex:Male Moisés e:06/26/2023 Address:[address] [place] [address] [facility] Pcp:Dylan villalobos Subjective: * Chief Complaints: * [...] - B35.3? Plan: * Treatment: 2.?Tinea unguium?Procedure: [id number] NAIL, 1-5 3.?Skin maceration? Start betadine.?? * Procedures:?Debride Nails 1-5:?Procedure:?Nail debridement performed extensively to reduce/remove overall nail length and girth, subungual debris, and necrotic tissue, by manual and electrical means by use of a nail nipper and/or dremel, to more viable healthy nail plate or bed tissue 1-5. Silver nitrate used for any petechial bleeding as necessary. Patient chooses, no pharmaceutical tx (90172).?Nail Reduction:?Nail Reduction?Trimming of dystrophic nails performed to reduce/remove overall nail length and girth, by manual and electrical means with use of a nail nipper and/or dremel, to more viable healthy nail plate or bed tissue 6-10 (G0127).? * Procedure Codes:?54614 DEBRI DE NAIL, 1-5, Modifiers: XS G0127 [...]
--- OUTSIDE RECORDS SUMMARY | 2024-03-29 11:39 | XMS_ITS | Encounter Summary ---
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 [place] Organization [facility] Address [address] [place] [address] Care Team Providers Care Cheese Specialist Name Role Phone LEV OCONNELL Primary [...] PREFERRED PROVIDER ORGANIZAT ION (PPO) [facility] Mar 02, 2023 [id number] ELIZABETH SMILEY JR PATIENT AETNA PREFERRED PROVIDER ORGANIZAT ION (PPO) FED EMPLO YEES Jan 26, 2020 [id number] ELIZABETH SMILEY JR PATIENT AETNA PREFERRED PROVIDER ORGANIZAT ION (PPO) [facility] Feb 25, 2016 [id number] ELIZABETH SMILEY JR PATIENT AETNA PREFERRED PROVIDER ORGANIZAT ION (PPO) [facility] Feb 25, 2016 [id number] BALJIT ELIZABETH PATIENT AETNA PREFERRED PROVIDER ORGANIZAT ION (PPO) DWAYNE AL EMPLO MIMI Feb 25, 2016 [id number] BALJIT ELIZABETH BELCHER PATIENT AETNA PREFERRED PROVIDER ORGANIZAT ION (PPO) DW[facility]NE [facility] EMPLO MIMI Feb 24, 2016 [id number] BALJIT ELIZABETH PATIENT AETNA PHARMACY MANAGEMENT PRESCRIPT ION [facility] EMPLO MIM[facility] Mar 02, 2023 [id number] BALJIT BELCHERELIZABETH PATIENT AETNA PHARMACY MANAGEMENT PRESCRIPT ION [facility] EMPLO MIMI Jan 26, 2020 [id number] BALJIT BELCHERELIZABETH PATIENT AETNA PHARMACY MANAGEMENT PRESCRIPT ION [place] EMPLO MIMI Feb 25, 2016 [id number] BALJIT ELIZABETH PATIENT AETNA PHARMACY MANAGEMENT PRESCRIPT ION [facility] Feb 25, 2016 [id number] BALJIT ELIZABETH PATIENT AETNA RX PRESCRIPT ION [facility] [place] EMPLO MIMI Feb 25, 2016 [id number] BALJIT ELIZABETH PATIENT AETNA RX PRESCRIPT ION [facility] Feb 25, 2016 [id number] BALJIT BELCHERELIZABETH PATIENT AETNA RX PRESCRIPT ION [place]NE [place] EMPLO MIMI Feb 25, 2016 [id number] ELIZABETH SMILEY JR PATIENT [employer] POINT OF SERVICE [employer] Mar 20, 2002 [id number] BALJIT ELIZABETH PATIENT [employer]* POINT OF SERVICE Mar 20, 2002 [id number] ELIZABETH SMILEY PATIENT Selected Encounter This section includes the information on record at [place] for the Encounter. Date/Time Encounter Type Encounter Description Reason Pro vider Source Mar 17, 2024 10:51 AM Outpatient Encounter TELEPHONE TRIAGE IHE Encounter Template Text not used by [place] Plan of Treatment: Future Appointments (+ 6 months) and Future Tests (+/- 45 days) The Plan of Treatment section includes future care activities for the patient from all [place] [facility] This section includes future appointments and future orders which are active, pending or scheduled. Future Appointments This section includes appointments that were scheduled to occur 6 months from the date of the Encounter, up to a maximum of 20 appointments. The data comes from all [place] treatment facilities. Appointment Date/Time Appointment Type Appointme nt Facility Name Mar 30, 2024 01:00 PM AMBULAT[facility] - [facility]ICINE [place] [facility] Apr 26, 2024 01:30 PM [facility] Jun 10, 2024 02:30 PM AMBULATORY - MEDICINE [place] [facility] Active, Pending, and Scheduled Orders This section includes a listing of several types of active, pending, and scheduled orders, including clinic medications orders, diagnostic test orders, procedure orders and consult orders; where the start date of the order is 45 days before the date of the Encounter or 45 days after the date of theEncounter. The data comes from all [place] treatment facilities. Test Date/Time Test Type Test Details Facility Name Feb 24, 2024 07:33 AM Consult Order COMMUNITY CARE-NEPHROLOGY [facility] [employer] [facility] Mar 04, 2024 11:41 AM Consult Order PHYSICAL T HERAPY/NHM OUTPT [facility] Mar 26, 2024 11:15 AM Consult Order CARDIOLOGY [facility] Lab Results: +/- 30 days of the encounter This section includes the Chemistry and Hematology Lab Results on record with [place] for the patient. Radiology Reports and Pathology Reports are provided separately, in subsequent sections. Lab Results This section contains the Chemistry/Hematology Results that were resulted 30 days before or 30 daysafter the date of the Encounter. Date/Time Source Result Type Result - Unit Interpretation Reference Range Comment Mar 11, 2024 11:22 AM [facility] HEMOGLOBIN A1C PANEL Specimen Type: BLOOD Comment: [...] Sep 06, 2023 03:38 PM Reporting Lab: [facility] [address] [facility] [address] Performing Lab: [facility] [address] HEMOGLOBIN A1C 7.7 H 4.0-5.6 Mar 11, 2024 11:22 AM [facility] LIPID PANEL FASTING Specimen Type: SERUM No comment entered. Ordering Provider: LEV LIZAMA Report Released Date/Time: Sep 06, 2023 03:38 PM Reporting Lab: [facility] [address] [address] Performing Lab: [facility] [address] [address] CHOLESTEROL 166 mg/dL TRIGLYCERIDE 137 mg/dL 0-150 LDL calculated 109 mg/dL 0-129 CHOL/HDL 5.5 HDL CHOLESTEROL 30 mg/dL L 40-60 Mar 11, 2024 11:22 AM [facility] TSH Specimen Type: SERUM No comment entered. Ordering Provider: LEV LIZAMA Report Released Date/Time: Sep 06, 2023 03:38 PM Reporting Lab: [facility] [address] [address] Performing Lab: [facility] TRN [facility] [address] [address] TSH 2.32 u[IU]/mL 0.35-5.00 Mar 11, 2024 11:22 AM [facility] LIVER FUNCTION Specimen Type: SERUM No comment entered. Ordering Provider: LEV LIZAMA Report Released Date/Time: Sep 06, 2023 03:38 PM Reporting Lab: [facility] [address] Performing Lab: [facility] [address] [address] PROTEIN,TOTAL 6.6 g/dL 6.0-8.3 ALBUMIN 3.7 g/dL 3.5-5.0 ALKALINE PHOSPHATASE 51 U/L 40-150 AST 18 U/L 5-34 ALT 29 U/L BILIRUBIN, TOTAL 0.4 mg/dL 0.2-1.2 Mar 11, 2024 11:22 AM [facility] BASIC METABOLIC PANEL (fasting) Specime n Type: SERUM No comment entered. Ordering Provider: LEV LIZAMA Report Released Date/Time: Sep 06, 2023 03:38 PM Reporting Lab: [address] [address] Performing Lab: [address] [address] UREA NITROGEN 40 mg/dL H 7-25 GLUCOSE 133 mg/dL H 65-100 SODIUM 138 mmol/L 135-145 POTASSIUM 5.2 mmol/L H 3.5-5.0 CHLORIDE 103 mmol/L 100-110 CO2 26 meq/L 20-30 CREATININE, Serum 2.34 mg/dL H 0.50-1.40 eGFR(CKD-EPI 2020) 30 mL/min L >60 Mar 11, 2024 11:22 AM [facility] MICROALBUMIN CREATININE RATIO PANEL Spe cimen Type: URINE No comment entered. Ordering Provider: LEV LIZAMA Report Released Date/Time: Sep 06, 2023 03:38 PM Reporting Lab: [address] [address] Performing Lab: [address] [address] MICROALBUMIN/C REATININE RATIO 868.1 mg/g H 0-29.9 MICROALBUMIN,Q UANTITATIVE 77.3 mg/dL RR UNAVAIL CREATININE URINE 89.04 mg/dL Mar 11, 2024 11:22 AM [facility] CBC AND DIFF (AUTO) Specimen Type: BLOOD No comment entered. Ordering Provider: LEV LIZAMA Report Released Date/Time: Sep 06, 2023 03:38 PM Reporting Lab: [address] [place] [address] Performing Lab: [facility] [address] [facility] [address] WBC 4.83 10*3/uL 4.50-11.00 RBC 5.19 10*6/uL [...] and tobacco- related health factors from the [place] facility where the Encounter took place. Current Smoking Status This section includes the most current smoking, or tobacco-related health factor, from the [place] facility where the Encounter took place. Date/Time Current Smoking Status Comment Corina alvares Feb 18, 2023 02:31 PM VA-TOBACCO FORMER USER [facility] Tobacco Use History This section includes a history of the smoking, or tobacco-related health factors, that were collected on or before the date of the Encounter. The data comes from the [place] facility where the Encounter took place. Date/Time Smoking Status/Tobacco Use Comment F acility Feb 18, 2023 02:31 PM VA-TOBACCO QUIT 15 YRS OR MORE [facility] Dec 31, 2021 01:00 PM VA-TOBACCO FORMER USER [facility] Dec 31, 2021 01:00 PM [place]-TOBACCO QUIT 15 YRS OR MORE [facility] Advance Directives: All historical and current Section Date Range: From patient's date of to the date document was created. This section includes ALL of a patient's completed or amended [place] Advance and Rescinded Directives. The entries below indicate that a directive exists for the patient, but an actual copy is not included with this document. The data comes from all [place] facilities. Date Advance Directives Provider Source July 02, 2022 ADVANCE DIRECTIVE SANDRA BROOKS [facility] Aug 07, 2021 ADVANCE DIRECTIVE RADHA SAHA IE Nov 28, 2020 ADVANCE DIRECTIVE GOLDIE DUTTA [facility] IE Encounter Notes: All associated encounter notes This section contains the clinical notes associated to the Encounter. Date/Time Encounter Note(s) Provider Source Mar 17, 2024 10:51 AM RN PROGRESS NOTE: [facility] TITLE: CCC: CLINICAL TRIAGE STANDARD TITLE: RN PROGRESS NOTE DATE OF NOTE: MAR 17, 2024@10:51:42 ENTRY DATE: MAR 17, 2024@10:51:42 AUTHOR: CECELIA GLEASON COSIGNER: URGENCY: STATUS: COMPLETED CCC: CLINICAL TRIAGE Has ADDENDA Patient Demographics Patient Name: ELIZABETH STEWARTBERNARDINO BELCHER Patient Primary [address]: [address] [place] [address] Patient Primary Phone: [phone] Patient : 1960 Patient Age: 64 Caller/Recipient Relation to Patient: Self Caller Name: ELIZABETH STEWARTBERNARDINO BELCHER Emergency Contact: YVES SMILEY Triage Summary Conducted triage/discussed symptoms Pain Score: 0 (No Pain) Chief Complaint: Cough System WHEN: Within 3 Days Nurse's Recommendation / WHEN: Within 3 Days System WHERE: Clinic Nurse's Recommendation / WHERE: Clinic/[facility] Patient Disposition Patient/Caregiver agrees to plan of care: Yes Nursing Plan and Disposition Referred for [facility] Virtual Clinic Visit Other Other Description: declined Transferred patient to Sched & Admin-Apt Other Other Description: aware of all mission act information Provided guidance for worsening symptoms: *Caller/Patient* advised to call facilities [place] Clinical Contact Center or seek immediate medical attention for new or worsening symptoms Nurse Summary Nurse Summary: Cough Dx COVID 03/07/24. Went to [facility] Went back to the [facility] 03/11 due to SOB Was provided Doxycycline 10 day course. He is day 6 today. CXR was neg for pneumonia Overall he has improved. Calling today because: Cough continues, lingering, occ white mucous production. Notes when he is on his back on the ground doing some deep breathing and exercise that he has sl more trouble with deep breathing over the last few days. See ROS below for full triage responses. No fever Able to climb stairs and ADL's without SOB. Calling for PCP follow up or wonders if he should go to sick call Declined vvc or tele appt wants face to face or a call back telling him is he should seek care at Sick call Reviewed warning signs for which to seek emergency care. Aware of Chavies Act [facility] available Warm transferred to [facility] for scheduling Clinical Contact Center Codes Clinic/Location: V1 CWM PHONE [facility] RN Decision Support System Output: Triage Complete Triage Date: 03/17/2024, 10:49 AM Triage Note: Decision Support Tool Used: NCCC Phone Triage 17 Mar 2024 15:36:57 +0000 [facility] Demographics 64 y/o Male Results CC: Cough Software suggested: Within 3 Days Software suggested follow-up location: Clinic, consider virtual care Values and Measures Duration of CC: 2 Weeks Positive Responses HPI: cough, duration longer than 2 weeks HPI: cough, worsening for more than 1 week MEDS: antibiotic use, duration longer than 2 days VS: respiratory rate not taken VS: temperature not taken Negative Responses Denies: HPI: breathing more rapidly than usual Denies: HPI: chest pain, pleuritic Denies: HPI: confusion, new or worsening Denies: HPI: cough, purulent sputum Denies: HPI: cough, severe, onset within past 3 hours Denies: HPI: coughing, within the past hour Denies: HPI: dyspnea on exertion, worse than usual Denies: HPI: dyspnea, new or worsening Denies: HPI: fever, subjective Denies: HPI: nasal congestion, duration longer than 2 days Denies: HPI: rhinorrhea, yellow or brown Denies: HPI: sore throat Denies: HPI: symptoms worsening Denies: HPI: vomiting Denies: HPI: wheezing, new or worsening Denies: PMH: CHF Denies: PMH: heart disease [place] Education Verbal Education Provided for: Bronchitis Home Care IMPORTANT: This note was created by [facility] Clinical Contact Center staff. Please do not alert the staff member by adding them as a signer for future communications. Alerts are not monitored by this user. /bienvenido/ RIMMA HESTER,RN VISN1 [facility] RN Signed: 03/17/2024 10:51 Receipt Acknowledged By: 03/22/2024 10:12 /bienvenido/ MAXIMO HOFFMAN LPN LPN 03/22/2024 09:57 /bienvenido/ STEVEN DIAL RN REGISTERED NURSE 03/22/2024 ADDENDUM STATUS: COMPLETED Spoke with . He states he is on his way to the [facility] for persistent cough. has up-coming PCP appt on 04/26/24. [place] would update PACT after his visit to the . /bienvenido/ STEVEN DIAL RN REGISTERED NURSE Signed: 03/22/2024 09:57 CECELIA GLEASON CNTRL [facility]
== END 2024-03-29 11:04 | disposition home or self-care (01) ==
PROVIDERS: PCP Internal Medicine; Visit Provider Internal Medicine Nephrology
DX: N18.31 Chronic kidney disease, stage 3a (principal); R80.8 Other proteinuria; I15.1 Hypertension secondary to other renal disorders; N04.1 Nephrotic syndrome with focal and segmental glomerular lesions
CPT/HCPCS: 99214

== ENCOUNTER → 2024-03-29 10:37 | Outpatient (BNVA) | payer OTHER, SELFPAY | PROVIDERS: PCP Internal Medicine; Visit Provider Internal Medicine Nephrology | DX: N18.31 Chronic kidney disease, stage 3a (principal); I15.1 Hypertension secondary to other renal disorders; R80.8 Other proteinuria; N04.1 Nephrotic syndrome with focal and segmental glomerular lesions | CPT/HCPCS: 99212 ==

== ENCOUNTER 2024-05-25 13:32 | Outpatient (REF) | payer OTHER, SELFPAY ==
[2024-05-25 16:28] LABS: Anion Gap 15 (12-20); Blood Urea Nitrogen 48 mg/dL (9-16); Carbon Dioxide 26 mmol/L (22-29); Chloride 105 mmol/L (96-108); Estimated Glomerular Filt Rate 33; Potassium 4.5 mmol/L (3.3-5.1); Sodium 141 mmol/L (135-145)
--- OUTSIDE RECORDS SUMMARY | 2024-05-25 16:30 | XMS_ITS | Clinical Summary ---
Author Organization [facility] Address [address] [place] [address] Care Team Providers Care Explosives Worker Name Role Phone Unavailable Primary Care Provider [...]
--- OUTSIDE RECORDS SUMMARY | 2024-05-25 16:30 | XMS_ITS | Clinical Summary ---
Author Organization [facility] Address [address] [place] [address] Phone Care Team Providers Care Direct Care Provider Name Role Phone Dylan Christianson MD Primary Care Prov ider Allergies [...] mouth 1 (one) time each day Active [place]-3 Fatty Acids (Fish Oil) 1000 MG capsule [...] Nephro as of 2019Jul 2022 Entered By: DYLAN THURMAN Comment: 2021 on Jardiance and SPARSENTAN 400mg daily Sleep apnea 02/13/2023 02/13/2023 Obstructive sleep apnea 02/13/2023 02/14/20 Obstructive sleep apnea syndrome 02/13/2023 02/13/2023 Overview (02/13/2023): Aug 17, 2022 Entered By: DYLAN OCONNELL Comment: 2022 sleep study moderate LYN, AHI 26- on CPAP Other hypertrophic disorder of the skin 02/14/2002/13/2023 Other specified counseling 02/13/202302/13 Primary IgA nephropathy 02/13/2023 02/14/20 Overview (02/13/2023): Nov 13, 2006 Entered By: KAYDEN CHESTER Comment: [facility] Entered By: KAYDEN CHESTER Comment: Proteinuria Screening for malignant neoplasms of colon 02/1302/13/2023 Overview (02/13/2023): Sep 23, 2011 Entered By: CESAR ROD Comment: 06/2011 repeat 10 yrsDec 2021 Entered By: DYLAN OCONNELL Comment: 12/2021 one polyp. Repeat in 5 yearsDec 2021 Entered By: DYLAN OCONNELL Comment: 01-15-22 DANI Giordano MD Sessile [...] 30+ - obesity 03/14/2021 03/14/2021 Overview (03/14/2021): program counselor Carpal tunnel syndrome 03/14/202103/14 Chronic rhinitis [...] Diabetes: Visual Foot Exam 03/20/2020 Influenza Vaccine (Season Ended) 2024 12/04/2022, 12/24/2021, 11/02/2020, Additional history exists Pneumococcal Vaccine: [...] mg/dl PVNMA 08/23/2019 us Rtama Conversion LAB [id number] LICITED RESULTS Final Result PVNMA from Last 3 Months or Most Recently Relevant to Health Maintenance Insurance AETNA AETNA Care Teams Direct Care Provider Relationship Specialty Start Date End Date Dylan Christianson MD [address] [place] [id number] PCP - General 05/10/20
--- OUTSIDE RECORDS SUMMARY | 2024-05-25 16:30 | XMS_ITS ---
Author Name [facility] Organization Unknown Care Team Organization Name Specialty Phone Email Start Date End [facility]
--- OUTSIDE RECORDS SUMMARY | 2024-05-25 16:30 | XMS_ITS ---
Author Organization [facility] Address [address] [place] [address] Care Team Providers Care Grooving Lathe Tender Name Role Phone Dylan Cat Primary Care Provider Unavailable Black, Cass Unavailable [phone] Allergies Allergen (clinical drug ingredient) Drug/Non Drug [...] an other tobacco user? No Vital Signs Blood pressure systolic 116 mm Hg 06/26/19 24 Blood pressure diastolic 74 mm Hg 024 Height 5ft 7in in 06/26/2023 Weight 224 lbs 06/26/2023 BMI 35.08 kg/m2 06/26/2023 Procedures Procedure Date Ordered Date Performed Result Body Sit e 57579-XLYBFDW NAIL, 1-5 06/26/2023 N/A [id number] DYSTROPHIC NAILS ANY # 06/26/2023 N/A Encounters Encounter Location Date Provider Diagnosis [facility] [address] [place] [address] 06/26/2023 Cass Black Type 2 diabetes mellitus [...] betadine Pending Test Test Name Order Date [id number]-[id number] NAIL, 1-5 06/26/2023 [id number] DYSTROPHIC NAILS ANY # Next Appt Details Follow Up: prn, Reason: Provider Name:Cass Lugo , 06/24/2024 02:00:00 PM, [address] [place] [address], [phone], Procedure Notes * Category Sub-Category Detail Notes [...] as necessary. Patient chooses, no pharmaceutical tx (25950) Nail Reduction Nail Reduction Trimming of dyst rophic nails performed to reduce/remove overall nail length and girth, by manual and electrical means with use of a nail nipper and/or dremel, to more viable healthy nail plate or bed tissue 6-10 (G0127) Progress Notes * Major SMILEY JrDOB: (63 yo M)Acc No.[id number]:06/26/2023 Progress Note Patient:?Major Smiley Provider:?Cass Lugo DPM :1960???Age:63 Y???Sex:Male Moisés e:06/26/2023 Address:[address] [place] [address] Benigno [phone] Pcp:Dylan villalobos Subjective: * Chief Complaints: * [...] 7.4 * Examination: ???Ophthalmology Referral: ?DIABETES EYE EXAM?Diabetic Retinopathy Screening:?Yes ?Findings of Diabetic Eye Exam:?no retinopathy?General Examination: ?GENERAL APPEARANCE:?Reveals a pleasant, alert, well [...] - B35.3? Plan: * Treatment: 2.?Tinea unguium?Procedure: 12604-RCNZVTN NAIL, 1-5 3.?Skin maceration? Start betadine.?? * Procedures:?Debride Nails 1-5:?Procedure:?Nail debridement performed extensively to reduce/remove overall nail length and girth, subungual debris, and necrotic tissue, by manual and electrical means by use of a nail nipper and/or dremel, to more viable healthy nail plate or bed tissue 1-5. Silver nitrate used for any petechial bleeding as necessary. Patient chooses, no pharmaceutical tx (36062).?Nail Reduction:?Nail Reduction?Trimming of dystrophic nails performed to reduce/remove overall nail length and girth, by manual and electrical means with use of a nail nipper and/or dremel, to more viable healthy nail plate or bed tissue 6-10 (G0127).? * Procedure Codes:?29602 DEBRI DE NAIL, 1-5, Modifiers: XS G0127 [...] * Sign off status: Completed true * Provider:Rosy Lugo DPM Date:?2023 Generated for Oumou vásquez/Damian/Ayan on:?05/25/2024 04:30 PM EDT History and Physical Notes * HPI (History [...]
--- OUTSIDE RECORDS SUMMARY | 2024-05-25 16:30 | XMS_ITS | Data Portability ---
Author Organization [facility], [address] Address [address] [place] [address] Assessment No assessment recorded. Plan of Treatment [...] Address Organization Details Recorded Time Diabetes mellitus 58053061 Active 2022 RHIANNA ASHLEY null, [place] - [facility] 12:34:05 Focal segmental glomeruloscler osis 416580476 Active 2022 RHIANNA ASHLEY null, [place] - [facility] 12:34:40 Disorder of thyroid gland 68979101 Active 2022 RHIANNA ASHLEY null, [place] - [facility] 3 12:34:55 Hypertensive disorder 18916590 Active 2022 RHIANNA ASHLEY null, [place] - [facility] 3 12:35:18 Hyperlipidemia 49408455 Active 2022 RHIANNA ASHLEY null, [place] - [...] Name and Address Organization Details Recorded Time 060868 Non-stero idal anti-infl ammatory agent (product) medicatio n other Not available Not available 07/10/2022 82602 005 SNOMED RHIANNA RAMIREZ null, [place] - [facility] 12:29:05 555559 hazelnut allergeni c extract food headache Not available Not available 07/10/2022 68445 3 RxNorm RHIANNA RAMIREZ null, [place] - [...] DateTime 3 170.18 cm 2 35.6 kg/m2 794347. 47 g 97 % 97 % 62 /min 16 /min 97.9 [degF] RHIANNA Mcgrath [facility] 12:42:15 Social History Question Answer Notes [...] SNOMED-CT Code Diagnosis ICD10 Code Diagnosis Note [id number] [address] [place] [address] 03/30/2019 14:52:38 03/30/2019 15:26:03 [id number] [address] [place] [address] 03/24/2016 09:21:39 03/24/2016 09:58:51 [id number] [address] [place] [address] 03/03/2020 16:08:12 03/03/2020 17:27:39 [id number] Hardik Taylor MD [address] [place] [address] 07/10/2022 12:15:05 07/10/2022 13:10:07 Swelling of lower leg 355235704 R22.40 Tender swelling in the right posterior legCant rule out DVTPatient will go to [place]. [facility] Concerns Section Related Observation LastModified by Organization Detai ls LastModified Time None Recorded Concern Status LastModified by Organization Details LastModified Time None Recorded Advance Directives Directive None Recorded Payers Encounter Date Sequence Insurance Name Policy Number Policy Prasad Covered Member ID Prasad Member ID Guarantor Name 03/24/2016 1 [employer] [id number] Major Salvador [id number] Major Salvador 03/03/2020 1 [employer] [id number] Major Salvador [id number] Major Salvador 07/10/2022 [facility] Major Salvador [id number] Major Salvador Notes Date Note Type Note Provider Name and Address Organization Details Recorded Time 07/10/2022 text/html KneeReported bypatient.Location :right Quality:throbbing; dull; deep; worsening Severity:moderate Duration:1 days Timing:cannot identify Context:cannot identify Associated Symptoms:no weakness; no numbness; no tingling;swelling; redness Previous Surgery:none Prior Imaging:none NO recent travel, no history Blood clots Hardik Taylor MD [facility] [place], [address], [place] - [facility] 07/11/2022 08:18:22
--- OUTSIDE RECORDS SUMMARY | 2024-05-25 16:30 | XMS_ITS ---
Author Organization [facility] Address [address] [place] [address] Care Team Providers Care Wine Specialist Name Role Phone Dylan Cat Primary Care Provider Unavailable Cass Lugo [phone] Encounters Encounter Location Date Provider Diagnosis [address] [address] 06/05/2023 Cass Lugo Plan Of Treatment Next Appt Details Provider Name:Cass Lugo , 06/24/2024 02:00:00 PM, [address] [place] [address], [phone], Progress Notes * Major SMILEY JrDOB: (64 yo M)Acc No.[id number]:06/05/2023 Progress Note Patient:?Major SMILEY Provider:?Cass Lugo DPM [...]
--- OUTSIDE RECORDS SUMMARY | 2024-05-25 16:30 | XMS_ITS ---
Author Organization [facility] Address [address] [facility] [place] [address] Care Team Providers Care Sledger Name Role Phone Dylan Cat Primary Care Provider Unavailable Black, Cass Unavailable [phone] Allergies Allergen (clinical drug ingredient) Drug/Non Drug [...] day for 30 day(s) Active Vital Signs Blood pressure systolic 116 mm Hg 12/25/19 24 Blood pressure diastolic 74 mm Hg 024 Height 5ft 7in in 12/25/2023 Weight 230 lbs 12/25/2023 BMI 36.02 kg/m2 12/25/2023 Procedures Procedure Date Ordered Date Performed Result Body Sit e 15205-BALUXHV NAIL, 1-5 12/25/2023 N/A 25502-RDEU SKIN LESIONS, 2 TO 4 12/25/2023 N/A Encounters Encounter Location Date Provider Diagnosis [facility] [address] [address] 12/25/2023 Cass Black Type 2 diabetes mellitus [...] betadine Pending Test Test Name Order Date 17908-RMFCRCH NAIL, 1-5 12/25/2023 42351-RBOV SKIN LESIONS, 2 TO 4 12/25/19 24 Next Appt Details Follow Up: prn, Reason: Provider Name:Cass Lugo , 06/24/2024 02:00:00 PM, [address] [place], [address], Procedure Notes * Category Sub-Category Detail Notes [...] as necessary. Patient chooses, no pharmaceutical tx (17562) Nail Reduction Nail Reduction Trimming of dyst rophic nails performed to reduce/remove overall nail length and girth, by manual and electrical means with use of a nail nipper and/or dremel, to more viable healthy nail plate or bed tissue 6-10 (G0127) Progress Notes * Major SMILEY JrDOB: (63 yo M)Acc No.[id number]:12/25/2023 Progress Note Patient:?Major Smiley Provider:?Cass LugoLACIE :1960???Age:63 Y???Sex:Male Moisés e:12/25/2023 Address:[address] [place] [address] [facility]ign[facility]-[address] Pcp:Dylan villalobos Subjective: * Chief Complaints: * [...] in no acute distress.?ORIENTED:?person, place, and time.?FOOT EXAM:?Lower Extremity Neurological Exam performed:?Yes ?Visual exam of foot performed:?Yes ?Date?12/25/2023 ?Sensory testing performed:?sensations diminished ?Sensory and motor testing performed:?sensations diminished ?Pedal pulse taking performed:?2+?Neurological: ?SENSORY:?Neurological exam demonstrates reduced light touch sensation [...] Uncomplicated (3)? Plan: * Treatment: 2.?Tinea unguium?Procedure: 96411-FFOTPQZ NAIL, 1-5 3.?Skin maceration? Start betadine.?? * Procedures:?Debride Nails 1-5:?Procedure:?Nail debridement performed extensively to reduce/remove overall nail length and girth, subungual debris, and necrotic tissue, by manual and electrical means by use of a nail nipper and/or dremel, to more viable healthy nail plate or bed tissue 1-5. Silver nitrate used for any petechial bleeding as necessary. Patient chooses, no pharmaceutical tx (11823).?Nail Reduction:?Nail Reduction?Trimming of dystrophic nails performed to reduce/remove overall nail length and girth, by manual and electrical means with use of a nail nipper and/or dremel, to more viable healthy nail plate or bed tissue 6-10 (G0127).? * Procedure Codes:?37990 DEBRI DE NAIL, 1-5, Modifiers: XS G0127 TRIMMING DYSTROPHIC NAILS ANY #, Modifiers: XS 75002 TRIM SKIN LESIONS, 2 TO 4, Modifiers: [...]
--- OUTSIDE RECORDS SUMMARY | 2024-05-25 16:30 | XMS_ITS | Clinical Summary ---
Author Organization [facility] Address [address] [place] [address] Care Team Providers Care Dial Painter Name Role Phone Downey, Araceli Griffin MD [...] Comments DTaP,Tdap,and Td Vaccines (1 - Tdap) 01/10/1980 Pneumococcal Vaccine: 50+ Ye ars (1 of 1 - PCV) 2011 Zoster Vaccines (1 of 2) 2011 COVID-19 Vaccine ( - 2023-2 5 season) 2023 Influenza Vaccine (#1) 2023 RSV Immunization Adult Patie nts (1 - 1-dose 75+ series) 01/10/2036 HIB [...] age to complete this topic Meningococcal B Vaccine Aged Out No l onger eligible based on patient's age to complete [...] age to complete this topic Care Teams Dial Painter Relationship Specialty Start Date End Date Araceli Downey MD [address] [place], [place] [address]t Of [facility] [place], [place] PCP - General Internal Medicine 09/02/16
--- OUTSIDE RECORDS SUMMARY | 2024-05-25 16:30 | XMS_ITS | Encounter Summary ---
Author Organization [facility] Address [address] [place] [address] Care Team Providers Care Buck Swamper Name Role Phone Unavailable Primary Care Provider Unavailabl e Encounter Details Date Type Department Care Team (Late st Contact Info) Description 08/30/2021 Scanned Document [address] [address] Podiatry, Scan Social History Tobacco [...]
--- OUTSIDE RECORDS SUMMARY | 2024-05-25 16:31 | XMS_ITS | Patient Health Record ---
Author Organization [facility] Address [address] [place] [address] Care Team Providers Care Soldering Inspector Name Role Phone Dylan Cat Primary Care Provider Unavailable Black, Cass Unavailable [phone] Allergies Allergen (clinical drug ingredient) Drug/Non Drug [...] Problem Acquired hammer toe of right foot (4898220745849481 ) Other hammer toe(s) (acquired), right foot (M20.41) Active confirmed Problem Acquired hammer toe of left foot (3193778442254984 ) Other hammer toe(s) (acquired), left foot (M20.42) Active confirmed Problem Polyneuropathy due to type 2 diabetes mellitus (094446603) Type 2 diabetes mellitus with diabetic polyneuropathy (E11.42) Active confirmed Vital Signs Blood pressure diastolic 74 mm Hg 12/25/2023 Height 5ft 7in in 12/25/2023 Blood pressure systolic 116 mm Hg 12/25/2023 Weight 230 lbs 12/25/2023 BMI 36.02 kg/m2 12/25/2023 Procedures Procedure Date Ordered Date Performed Result Body Sit e 26228-PMPNRSD NAIL, 1-5 06/26/2023 N/A M2889-CDWVSKEI DYSTROPHIC NAILS ANY # 06/26/2023 N/A 57711-VQCGDPE NAIL, 1-5 12/25/2023 N/A 38043-WMIN SKIN LESIONS, 2 TO 4 12/25/2023 N/A Encounters Encounter [facility] Date [facility] [address] 06/26/2023 Cass Lugo Type 2 diabetes mellitus with diabetic polyneuropathy E11.42 ; Tinea unguium B35.1 ; Skin maceration L98.8 and Tinea pedis B35.[address] [address] 12/25/2023 Cass Lugo Type 2 diabetes mellitus with diabetic polyneuropathy E11.42 ; Tinea pedis B35.3 ; Tinea unguium B35.1 and Skin maceration L98.[address] [address] 06/02/2023 Cass Black Assessments Encounter Date Diagnosis [...] Test Name Order Date Hemoglobin A1c 01/30/2015 28245-RHBKJCN NAIL, 6 OR MORE 01/13/2012 80087-HKNBEFM NAIL, 6 OR MORE 06/29/2012 57268-CDQTFXD NAIL, 6 OR MORE 12/24/2012 52304-FGMSZSE NAIL, 6 OR MORE 01/07/2011 16031-QLGYJOU NAIL, 6 OR MORE 06/24/2013 59878-BYLIMQO NAIL, 1-5 07/08/2011 26340-RANMOQW NAIL, 1-5 01/10/2014 55409-GEQHMDV NAIL, 1-5 06/30/2014 88125-VJKFPYV NAIL, 1-5 01/30/2015 09202-LDIYCVY NAIL, 1-5 07/27/2015 73618-RFARIRC NAIL, 1-5 12/25/2023 01592-GGMCJVK NAIL, 1-5 01/15/2016 11497-UASDJME NAIL, 1-5 08/30/2021 30052-WNBCOMH NAIL, 1-5 01/21/2022 45126-RFTDIKA NAIL, 1-5 11/07/2022 86660-KFTFOTN NAIL, 1-5 06/26/2023 70935-Wvqwkpsx Plate 08/30/2021 54509-UVFM SKIN LESIONS, 2 TO 4 01/15/20 16 22242-TDBE SKIN LESIONS, 2 TO 4 12/25/19 24 17694-MJSY SKIN LESIONS, 2 TO 4 01/31/20 15 46126-JJZB SKIN LESIONS, 2 TO 4 07/27/19 16 33952-YSXF SKIN LESIONS, 2 TO 4 07/01/19 15 11595-PYKE SKIN LESIONS, 2 TO 4 06/25/19 14 00387-RBXH SKIN LESIONS, 2 TO 4 01/11/20 14 35922-PPXU SKIN LESIONS, 2 TO 4 12/25/19 13 62011-ZZXS NAIL(S) 06/30/2014 64711-RTLV NAIL(S) 01/10/2014 56860-IBRT NAIL(S) 07/27/2015 11500-EKZA NAIL(S) 01/30/2015 52352-JPLQ NAIL(S) 01/15/2016 L7351-CQLKGPXC DYSTROPHIC NAILS ANY # Next Appt Details Provider Name:Cass Lugo , 06/24/2024 02:00:00 PM, [address] [place], [address], Insurance Providers Payer Name Payer Address Payer Phone Subscriber Number Group Number Insured Name Patient Relationship to Insured Coverage Start Date Coverage End Date Aetna Choice POS [address] [address] [place] [address] [id number] Major Tidwell Self - patient is the [...]
[2024-05-25 16:45] LABS: Creatinine Urine 60.23 mg/dL; Protein/Creatinine Ratio, Ur 2.03 (<0.2); Total Protein Urine Random 122 mg/dL (<12)
== END 2024-05-25 13:33 | disposition home or self-care (01) ==
LOC: HO.HMGCLDS 13:32
PROVIDERS: PCP Internal Medicine; Visit Provider Internal Medicine Nephrology
DX: N04.1 Nephrotic syndrome with focal and segmental glomerular lesions (principal); I15.1 Hypertension secondary to other renal disorders; N18.31 Chronic kidney disease, stage 3a; R80.8 Other proteinuria
CPT/HCPCS: 36415; 80051; 82565; 82570; 84156; 84520

== ENCOUNTER 2024-05-28 15:23 | Outpatient (AMB) | payer OTHER, SELFPAY ==
--- OUTSIDE RECORDS SUMMARY | 2024-05-28 15:25 | XMS_ITS | Encounter Summary ---
Author Organization [facility] Address [address] [place] [address] Care Team Providers Care Board Member Name Role Phone Unavailable Primary Care Provider Unavailabl e Encounter Details Date Type Department Care Team (Late st Contact Info) Description 08/30/2021 Scanned Document [address] [address] Podiatry, Scan Social History Tobacco [...]
--- OUTSIDE RECORDS SUMMARY | 2024-05-28 15:25 | XMS_ITS | Clinical Summary ---
Author Organization [facility] Address [address] [place] [address] Care Team Providers Care Supervisor Solder Making Name Role Phone Downey, Araceli Griffin MD [...] - 2023-2 5 season) 2023 Influenza Vaccine (Season Ended) 2024 RSV Immunization Adult Patie nts (1 - [...] age to complete this topic Care Teams Supervisor Solder Making Relationship Specialty Start Date End Date Araceli Downey MD [address] [place], [place] [address]t Of [facility] [place], [place] PCP - General Internal Medicine 09/02/16
--- OUTSIDE RECORDS SUMMARY | 2024-05-28 15:25 | XMS_ITS | Clinical Summary ---
Author Organization [facility] Address [address] [place] [address] Care Team Providers Care Health Information Technician Name Role Phone Unavailable Primary Care Provider [...]
--- OUTSIDE RECORDS SUMMARY | 2024-05-28 15:25 | XMS_ITS ---
Author Organization [facility] Address [address] [place] [address] Care Team Providers Care Research And Development Chemist Name Role Phone Dylan Cat Primary Care Provider Unavailable Cass Lugo [phone] Encounters Encounter Location Date Provider Diagnosis [address] [address] 06/05/2023 Cass Lugo Plan Of Treatment Next Appt Details Provider Name:Cass Lugo , 06/24/2024 02:00:00 PM, [address] [place] [address], [address], Progress Notes * Major SMILEY JrDOB: (64 yo M)Acc No.[id number]:06/05/2023 Progress Note Patient:?Major SMILEY Provider:?Cass Lugo DPM [...] appointment provider. Sign off status: Pending * Provider:Rsoy Lugo DPM Date:?2023 Generated for Oumou vásquez/Damian/Ayan on:?05/28/2024 03:25 PM EDT
--- OUTSIDE RECORDS SUMMARY | 2024-05-28 15:25 | XMS_ITS | Clinical Summary ---
Author Organization [facility] Address [address] [place] [address] Phone Care Team Providers Care Channel Rebuilder Name Role Phone Dylan Christianson MD Primary [...] mouth 1 (one) time each day Active [place]-3 Fatty Acids (Fish Oil) 1000 MG capsule [...] (02/13/2023): Nov 13, 2006 Entered By: KAYDEN CHETSER Comment: focal 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 counselor Carpal tunnel syndrome 03/14/202103/14 Chronic rhinitis 03/14/2021 03/14/2021 Diabetes mellitus 03/14/2021 03/14/2021 Hyperlipidemia 03/14/2021 03/14/2021 Malignant neoplasm of prostate 03/14/2021 03/14/2021 Overview (03/14/2021): radical prostatectomy, Migraine 03/14/2021 03/14/2021 Prolapsed lumbar intervertebral disc 03/14/2021 03/14/2021 Overview (03/14/2021): MRI August 2012 Vitamin D deficiency 03/14/2021 022 Immunizations Immunization Administration Dates Next Due DTaP, Unspecified 06/19/2010 [...] 12/24/2021, 11/02/2020, Additional history exists Pneumococcal Vaccine: Peds (0 to 5 Years) and At-Risk Patients (6 to 49 Years) (4 of 4 - PPSV23 or [...] mg/dl PVNMA 08/23/2019 us [facility] Conversion LAB [id number] LICITED RESULTS Final Result PVNMA from Last 3 Months or Most Recently Relevant to Health Maintenance Insurance Aet Commercial Aetna Commercial Care Teams Channel Rebuilder Relationship Specialty Start Date End Date Dylan Christianson MD [address] [place] [address] PCP - General 05/10/20
--- OUTSIDE RECORDS SUMMARY | 2024-05-28 15:25 | XMS_ITS ---
Author Organization [facility] Address [address] [place] [address] Care Team Providers Care Natural Sciences Professor Name Role Phone Dylna Cat Primary Care Provider Unavailable Black, Cass Unavailable [phone] Allergies Allergen (clinical drug ingredient) Drug/Non Drug [...] Ordered Date Performed Result Body Sit e 56966-PZUONKO NAIL, 1-5 06/26/2023 N/A J0791-ULRIBZRF DYSTROPHIC NAILS ANY # 06/26/2023 N/A Encounters Encounter Location Date Provider Diagnosis [facility] [place] [address] [place] [address] 06/26/2023 Cass Black Type 2 diabetes mellitus [...] betadine Pending Test Test Name Order Date 68315-XAIMOZJ NAIL, 1-5 06/26/2023 C8672-WKOHTTDP DYSTROPHIC NAILS ANY # Next Appt Details Follow Up: prn, Reason: Provider Name:Cass Lugo , 06/24/2024 02:00:00 PM, [address] [place] [address], [address], Procedure Notes * Category Sub-Category Detail Notes [...] as necessary. Patient chooses, no pharmaceutical tx (87021) Nail Reduction Nail Reduction Trimming of dyst rophic nails performed to reduce/remove overall nail length and girth, by manual and electrical means with use of a nail nipper and/or dremel, to more viable healthy nail plate or bed tissue 6-10 (G0127) Progress Notes * Major SMILEY JrDOB: (63 yo M)Acc No.[id number]:06/26/2023 Progress Note Patient:?Major Smiley Provider:?Cass Lugo DPM :1960???Age:63 Y???Sex:Male Moisés e:06/26/2023 Address:[address] [place] [address] [facility]igno [facility]-[address] Pcp:Dylan villalobos Subjective: * Chief Complaints: * [...] - B35.3? Plan: * Treatment: 2.?Tinea unguium?Procedure: 77952-LCKEKEY NAIL, 1-5 3.?Skin maceration? Start betadine.?? * Procedures:?Debride Nails 1-5:?Procedure:?Nail debridement performed extensively to reduce/remove overall nail length and girth, subungual debris, and necrotic tissue, by manual and electrical means by use of a nail nipper and/or dremel, to more viable healthy nail plate or bed tissue 1-5. Silver nitrate used for any petechial bleeding as necessary. Patient chooses, no pharmaceutical tx (59465).?Nail Reduction:?Nail Reduction?Trimming of dystrophic nails performed to reduce/remove overall nail length and girth, by manual and electrical means with use of a nail nipper and/or dremel, to more viable healthy nail plate or bed tissue 6-10 (G0127).? * Procedure Codes:?82297 DEBRI DE NAIL, 1-5, Modifiers: XS G0127 [...] for Oumou vásquez/Damian/Ayan on:?05/28/2024 03:25 PM EDT History and Physical Notes * [...]
--- OUTSIDE RECORDS SUMMARY | 2024-05-28 15:26 | XMS_ITS | Patient Health Record ---
Author [facility] Address [address] [place] [address] Care Team Providers Care Process Assistant Name Role Phone Dylan Cat Primary Care Provider Unavailable Black, Cass Unavailable [phone] Allergies Allergen (clinical drug ingredient) Drug/Non Drug [...] Problem Acquired hammer toe of right foot (7974913377620469 ) Other hammer toe(s) (acquired), right foot (M20.41) Active confirmed Problem Acquired hammer toe of left foot (0082762624422330 ) Other hammer toe(s) (acquired), left foot (M20.42) Active confirmed Problem Polyneuropathy due to type 2 diabetes mellitus (025122825) Type 2 diabetes mellitus with diabetic polyneuropathy (E11.42) Active confirmed Vital Signs Blood pressure diastolic 74 mm Hg 12/25/2023 Height 5ft 7in in 12/25/2023 Blood pressure systolic 116 mm Hg 12/25/2023 Weight 230 lbs 12/25/2023 BMI 36.02 kg/m2 12/25/2023 Procedures Procedure Date Ordered Date Performed Result Body Sit e 72031-FGLANCI NAIL, 1-5 06/26/2023 N/A V0660-UMACLFRR DYSTROPHIC NAILS ANY # 06/26/2023 N/A 19363-OSIVCNC NAIL, 1-5 12/25/2023 N/A 64006-XOEW SKIN LESIONS, 2 TO 4 12/25/2023 N/A Encounters Encounter Location Date [facility] [address] 06/26/2023 Cass Lugo Type 2 diabetes mellitus with diabetic polyneuropathy E11.42 ; Tinea unguium B35.1 ; Skin maceration L98.8 and Tinea pedis B35.[address] [address] 12/25/2023 Cass Lugo Type 2 diabetes mellitus with diabetic polyneuropathy E11.42 ; Tinea pedis B35.3 ; Tinea unguium B35.1 and Skin maceration L98.[address] [address] 06/02/2023 Cass Black Assessments Encounter Date Diagnosis [...] Test Name Order Date Hemoglobin A1c 01/30/2015 75211-QOZMINZ NAIL, 6 OR MORE 01/13/2012 79182-LQCENPD NAIL, 6 OR MORE 06/29/2012 19659-NJEDLMF NAIL, 6 OR MORE 12/24/2012 59719-EYLWWNU NAIL, 6 OR MORE 01/07/2011 47686-VRYYILW NAIL, 6 OR MORE 06/24/2013 48818-OOSQLSC NAIL, 1-5 07/08/2011 56898-NELLDEA NAIL, 1-5 01/10/2014 86826-CDPKFDV NAIL, 1-5 06/30/2014 80001-WPNFDUD NAIL, 1-5 01/30/2015 47646-WCXVZTV NAIL, 1-5 07/27/2015 68070-QEETYHF NAIL, 1-5 12/25/2023 71710-GIJNXSF NAIL, 1-5 01/15/2016 71414-ZKJRNRZ NAIL, 1-5 08/30/2021 28564-UWBGWJW NAIL, 1-5 01/21/2022 78876-IAXOUPR NAIL, 1-5 11/07/2022 86887-EGUMXMU NAIL, 1-5 06/26/2023 11277-Yxpcnfsf Plate 08/30/2021 38033-SMLI SKIN LESIONS, 2 TO 4 01/15/20 16 36819-HYLW SKIN LESIONS, 2 TO 4 12/25/19 24 57850-QEHU SKIN LESIONS, 2 TO 4 01/31/20 15 76200-WEMP SKIN LESIONS, 2 TO 4 07/27/19 16 45404-RPFA SKIN LESIONS, 2 TO 4 07/01/19 15 01807-AORH SKIN LESIONS, 2 TO 4 06/25/19 14 80625-OBFB SKIN LESIONS, 2 TO 4 01/11/20 14 99934-HQGU SKIN LESIONS, 2 TO 4 12/25/19 13 40197-GIZD NAIL(S) 06/30/2014 10319-XOEC NAIL(S) 01/10/2014 98294-GRDO NAIL(S) 07/27/2015 90360-HEVE NAIL(S) 01/30/2015 55142-TDIG NAIL(S) 01/15/2016 J1955-EFWTGQPI DYSTROPHIC NAILS ANY # Next Appt Details Provider Name:Cass Lugo , 06/24/2024 02:00:00 PM, [address] [place], [address], Insurance Providers Payer Name Payer Address Payer Phone Subscriber Number Group Number Insured Name Patient Relationship to Insured Coverage Start Date Coverage End Date Aetna Choice POS [address] [address] [place] [address] [id number] Major Tidwell Self - patient is the [...]
--- OUTSIDE RECORDS SUMMARY | 2024-05-28 15:26 | XMS_ITS ---
Author Organization [facility] Address [address] [facility] [place] [address] Care Team Providers Care Bread Slicer Machine Name Role Phone Dylan Cat Primary Care Provider Unavailable Black, Cass Unavailable [phone] Allergies Allergen (clinical drug ingredient) Drug/Non Drug [...] Ordered Date Performed Result Body Sit e 63778-CTOUWRH NAIL, 1-5 12/25/2023 N/A 20629-VAGU SKIN LESIONS, 2 TO 4 12/25/2023 N/A Encounters Encounter Location Date Provider Diagnosis [facility] [address] [address] 12/25/2023 Cass Black Type 2 diabetes mellitus [...] betadine Pending Test Test Name Order Date 26602-MKNAJYG NAIL, 1-5 12/25/2023 37332-BSXR SKIN LESIONS, 2 TO 4 12/25/19 24 Next Appt Details Follow Up: prn, Reason: Provider Name:Cass Lugo , 06/24/2024 02:00:00 PM, [address] [place], [address], Procedure Notes * Category Sub-Category Detail Notes [...] as necessary. Patient chooses, no pharmaceutical tx (02577) Nail Reduction Nail Reduction Trimming of dyst rophic nails performed to reduce/remove overall nail length and girth, by manual and electrical means with use of a nail nipper and/or dremel, to more viable healthy nail plate or bed tissue 6-10 (G0127) Progress Notes * Major SMILEY JrDOB: (63 yo M)Acc No.[id number]:12/25/2023 Progress Note Patient:?Major Smiley Provider:?Cass LugoLACIE :1960???Age:63 Y???Sex:Male Moisés e:12/25/2023 Address:[address] [place] [address] Benigno HdezRIVERVIEW [facility] CENTERNQ-[address] Pcp:Dylan villalobos Subjective: * Chief Complaints: * [...] Uncomplicated (3)? Plan: * Treatment: 2.?Tinea unguium?Procedure: 66366-SZRRZHI NAIL, 1-5 3.?Skin maceration? Start betadine.?? * Procedures:?Debride Nails 1-5:?Procedure:?Nail debridement performed extensively to reduce/remove overall nail length and girth, subungual debris, and necrotic tissue, by manual and electrical means by use of a nail nipper and/or dremel, to more viable healthy nail plate or bed tissue 1-5. Silver nitrate used for any petechial bleeding as necessary. Patient chooses, no pharmaceutical tx (83147).?Nail Reduction:?Nail Reduction?Trimming of dystrophic nails performed to reduce/remove overall nail length and girth, by manual and electrical means with use of a nail nipper and/or dremel, to more viable healthy nail plate or bed tissue 6-10 (G0127).? * Procedure Codes:?98794 DEBRI DE NAIL, 1-5, Modifiers: XS G0127 TRIMMING DYSTROPHIC NAILS ANY #, Modifiers: XS 01686 TRIM SKIN LESIONS, 2 TO 4, Modifiers: [...]
[2024-05-28 15:28] VITALS: BP 130/70; PULSE 70; O2SAT 97; BMI 36.4
--- NOTE | 2024-05-28 15:28 | HO.NEPHOV_ITS ---
Vital Signs 05/28/24 15:28 Height 5 ft 7 in Weight 232 lb 6 oz BMI 36.4 BP 130/70 Blood Pressure Location Lt brachial Position Sitting Pulse 70 Pulse Source Pulse Oximeter Pulse Oximetry (%) 97 Oxygen Delivery Method Room Air Intake Visit Reasons: 3mon follow-up w/labs-Conf Salon Receptionist Required: No Accompanied by: Spouse Allergies NSAIDS (Non-Steroidal Anti-Inflamma Allergy (Severe, Verified 05/28/24 15:30) other hazelnut Allergy (Verified 05/28/24 15:30) Unknown Do you need a note to return to daycare/school/sports/work: No HPI Comments Details: Braden was seen in follow-up of his chronic kidney disease, proteinuria on a backdrop of biopsy-proven primary FSGS in the past. He recently had COVID and had been having pulmonary issues which is better now. His D Dimer was negative and USS of the LE was negative for DVT. He has not had a cardiology follow up. In the recent past, he had a renal biopsy which showed FSGS and diabetic nephropathy. His blood sugars are still running high but better. He has lost weight on Ozempic. He is tolerating Jardiance well. He was on sparsentan which has been changed to Irbesartan. He has no edema. He has not had any other recent medication changes. [facility] Medical History Hypertension FSGS (focal segmental glomerulosclerosis) with nephrosis Chronic kidney disease, stage 3a Proteinuria Surgical History History of tonsillectomy and adenoidectomy History of prostate surgery History of back surgery Social History Alcohol intake: never Patient Tobacco Use Status: Former Tobacco user Review of Systems Const All systems reviewed & are unremarkable except as noted in HPI and below Physical Exam Vital Signs: BMI result Body Mass Index 36.4 Const General: comfortable and no acute distress Orientation/consciousness: patient oriented x3 HEENT Head: Yes normocephalic Mouth: Normal oral and palatal mucosa present Eyes EOM: EOMs intact bilaterally Neck Neck: Yes supple Resp Auscultation: clear to auscultation bilaterally Cardio Jugular venous distension: no JVD Rate: regular rate GI Palpation (GI): Soft to palpation Auscultation: normal bowel sounds General: Yes no CVA tenderness Back/Spine/Pelvis Back: no CVA tenderness Skin General skin exam: no rashes or lesions noted Neuro General: patient oriented x3 and moves all extremities Extrem General: Yes no pedal edema Results Reviewed Nephrology Results: Hgb 14.4 g/dl (14.0-18.0) 03/22/24 WBC 8.1 X10*3/uL (4.8-10.8) 03/22/24 Plt Count 237 X10*3/uL (160-400) 03/22/24 Sodium 141 mmol/L (135-145) 05/25/24 Potassium 4.5 mmol/L (3.3-5.1) 05/25/24 Chloride 105 mmol/L (96-108) 05/25/24 Carbon Dioxide 26 mmol/L (22-29) 05/25/24 BUN 48 mg/dL (9-16) H 05/25/24 Creatinine 2.06 mg/dL (0.5-1.4) H 05/25/24 Calcium 9.4 mg/dL (8.4-10.2) 03/22/24 Urine Creatinine 60.23 mg/dL 05/25/24 Protein/Creatinin Ratio 2.03 (<0.2) H 05/25/24 Assessment & Plan Assessment & Plan (1) Chronic kidney disease, stage 3a: Code(s): N18.31 - Chronic kidney disease, stage 3a Category: Medical (2) Proteinuria: Code(s): R80.9 - Proteinuria, unspecified Category: Medical Qualifiers: Proteinuria type: other Qualified Code(s): R80.8 - Other proteinuria (3) Hypertension: Code(s): I10 - Essential (primary) hypertension Category: Medical Qualifiers: Hypertension type: secondary to other renal disorders Qualified Code(s): I15.1 - Hypertension secondary to other renal disorders (4) FSGS (focal segmental glomerulosclerosis) with nephrosis: Code(s): N04.1 - Nephrotic syndrome with focal and segmental glomerular lesions Category: Medical Plan Braden carries a diagnosis of biopsy-proven primary FSGS. He has taken immunosuppression in the past. He has history of prostate cancer needing surgery. He had been on sparsentan which was changed to Irbesartan( as he is not in the FSGS study anymore) . His serum creatinine has been stable. He is on Jardiance. He has no retinopathy or neuropathy. He needs to lose more weight and keeps his blood sugar under better control. He avoids nonsteroidal anti- inflammatories and maintain good hydration. I reiterated the importance of blood sugar control, lifestyle modification, weight loss and importance of monitoring potassium, renal functions and urine protein. I answered all his questions.F/U given Orders: Orders Creatinine 4 Months I15.1 - Hypertension secondary to other renal disorders, N04.1 - Nephrotic syndrome with focal and segmental glomerular lesions, N18.31 - Chronic kidney disease, stage 3a, R80.8 - Other proteinuria Blood Urea Nitrogen 4 Months I15.1 - Hypertension secondary to other renal disorders, N04.1 - Nephrotic syndrome with focal and segmental glomerular lesions, N18.31 - Chronic kidney disease, stage 3a, R80.8 - Other proteinuria Electrolytes 4 Months I15.1 - Hypertension secondary to other renal disorders, N04.1 - Nephrotic syndrome with focal and segmental glomerular lesions, N18.31 - Chronic kidney disease, stage 3a, R80.8 - Other proteinuria Protein Creatinine Ratio, Ur 4 Months I15.1 - Hypertension secondary to other renal disorders, N04.1 - Nephrotic syndrome with focal and segmental glomerular lesions, N18.31 - Chronic kidney disease, stage 3a, R80.8 - Other proteinuria Coding Level of Care Code Est Pt Level 4 (72520) Diagnoses Chronic kidney disease, stage 3a N18.31 Other proteinuria R80.8 Proteinuria type: other Hypertension secondary to other renal disorders I15.1 Hypertension type: secondary to other renal disorders FSGS (focal segmental glomerulosclerosis) with nephrosis N04.1
== END 2024-05-28 15:57 | disposition home or self-care (01) ==
LOC: HO.HKA 15:23
PROVIDERS: PCP Internal Medicine; Visit Provider Internal Medicine Nephrology
DX: N18.31 Chronic kidney disease, stage 3a (principal); R80.8 Other proteinuria; I15.1 Hypertension secondary to other renal disorders; N04.1 Nephrotic syndrome with focal and segmental glomerular lesions
CPT/HCPCS: 99214

== ENCOUNTER → 2024-05-28 15:23 | Outpatient (BNVA) | payer OTHER, SELFPAY | PROVIDERS: PCP Internal Medicine; Visit Provider Internal Medicine Nephrology | DX: R80.8 Other proteinuria (principal); N18.31 Chronic kidney disease, stage 3a; I15.1 Hypertension secondary to other renal disorders; N40.1 Benign prostatic hyperplasia with lower urinary tract symptoms | CPT/HCPCS: 99212 ==

== ENCOUNTER 2024-10-22 09:59 | Outpatient (REF) | payer OTHER, SELFPAY ==
--- OUTSIDE RECORDS SUMMARY | 2023-05-15 10:30 | XMS_ITS ---
Author Organization [facility] Address [address] [place] [address] Care Team Providers Care Vp Compliance Name Role Phone Dylan Cat Primary Care Provider Unavailable Cass Lugo [phone] Encounters Encounter Location Date Provider Diagnosis [address] [address] 05/15/2023 [facility] Plan Of Treatment Next Appt Details Provider Name:Cass Lugo , 12/23/2024 02:00:00 PM, [address] [place] [address], [phone], Progress Notes * Major SMILEY JrDOB: (64 yo M)Acc No.[id number]:05/15/2023 Progress Note Patient: Kendall Major BARILLAS Provider: [...] 05/15/2023 Generated for Oumou Whipple on: 0 10/22/2024 10:54 AM EDT
--- OUTSIDE RECORDS SUMMARY | 2023-06-05 06:00 | XMS_ITS ---
Author Organization [facility] Address [address] [place] [address] Care Team Providers Care Awake Overnight Monitor Name Role Phone Dylan Cat Primary Care Provider Unavailable Cass Lugo [phone] Encounters Encounter Location Date Provider Diagnosis [address] [address] 06/05/2023 [facility] Plan Of Treatment Next Appt Details Provider Name:Cass Lugo , 12/23/2024 02:00:00 PM, [address] [place] [address], [phone], Progress Notes * Major SMILEY JrDOB: (64 yo M)Acc No.[id number]:06/05/2023 Progress Note Patient: Kendall Major BARILLAS Provider: Gaby Lugo DPM :1960 A ge:63 Y S ex:Male Date:06/05/2023 Address:[address] [id number] Pcp:Dylan villalobos Subjective: [...] * Provider: Gaby Lugo DPM Date: 0 06/05/2023 Generated for Oumou Whipple on: 0 10/22/2024 10:54 AM EDT
--- OUTSIDE RECORDS SUMMARY | 2024-10-22 10:54 | XMS_ITS | Clinical Summary ---
[facility] Address [address] [place] [address] Care Team Providers Care Pneumatic Jacketer Name Role Phone Downey, Araceli Griffin MD [...] Vaccine ( - 2023-2 5 season) 2023 Depression Screening 02/18/2024 Influenza Vaccine (#1) 2024 RSV Immunization Adult Patie nts (1 [...] age to complete this topic Care Teams Pneumatic Jacketer Relationship Specialty Start Date End Date Araceli Downey MD [address] [place], [place] [address] [place] PCP - General Internal Medicine 09/02/16
--- OUTSIDE RECORDS SUMMARY | 2024-10-22 10:55 | XMS_ITS | Encounter Summary ---
Author Organization [facility] Address [address] [place] [address] Care Team Providers Care Employee Operations Examiner Name Role Phone Unavailable Primary Care Provider Unavailabl e Encounter Details Date Type Department Care Team (Late st Contact Info) Description 08/30/2021 Scanned Document [address] [address] Podiatry, Scan Social History Tobacco Use Types Packs/Day Years Used Date Smoking Tobacco: Never Assessed Sex and Gender Information Value Date Recorded Sex Assigned at Not on file Legal Sex Male 3:57 PM EDT Gender Identity Not on file Sexual Orientation Not on file documented as of this encounter Plan of Treatment Not on file documented as of this encounter Visit Diagnoses Not on filedocumented in this encounter
--- OUTSIDE RECORDS SUMMARY | 2024-10-22 10:55 | XMS_ITS | Patient Health Record ---
[facility] Address [address] [place] [address] Care Team Providers Care Machine Container Washer Name Role Phone Dylan Cat Primary Care Provider Unavailable Black, Cass Unavailable [phone] Allergies Allergen (clinical drug ingredient) Drug/Non Drug [...] Range Notes HEMOGLOBIN A1C (GLYCOHEMOGLO BIN) Reviewed date:06/24/2024 02:14:05 PM Interpretation: Performing Lab: Notes/Report: HEMOGLOBIN A1C % (HH) 7.7 Reason For Referral No Information Medications Medication SIG (Take, Route, Frequency, Duration) Notes Start Date End Date Status betadine Active Zestril Not-Taking Synthroid Not-Taking Ozempic Active Levitra Not-Taking clonazePAM 0.5 MG as directed Orally Active Inspra Not-Taking Empagliflozin 10 MG 1 tablet Orally Once a day; Duration: 30 day(s) Active Cozaar Not-Taking amLODIPine Besylate 5 MG 1 tablet Orally Once a day; Duration: 30 day(s) Active Ciclopirox Olamine 0.77 % 1 application to affected area Externally Twice a day; Duration: 30 days 01/13/2012 Not-Taking Fish Oil 1000 MG 1 capsule Orally Once a day; Duration: 30 day(s) Active Magnesium Gluconate 500 MG 1 tablet Orally Once a day; Duration: 30 day(s) Active Baclofen 10 MG 1 tablet as needed Orally Twice a day Active Levothyroxine Sodium 0.2 mg Mon-SAT , 0.1mg Sun Active Atorvastatin Calcium 40 MG 1 tablet Orally Once a day; Duration: 30 day(s) Active Aspirin 81 mg qd Active Vitamin B12 Active amLODIPine Besylate 5 MG 1 tablet Orally Once a day; Duration: 30 day(s) Not-Taking Ciclopirox Olamine 0.77 % 1 application to affected area Externally to feet Twice a day; Duration: 30 days Not-Taking Sparsentan Not-Takin g metFORMIN HCl 500 MG 1 tablet with a meal Orally Once a day; Duration: 30 day(s) Not-Taking Vitamin D 2000 UNIT as directed Orally Once a day Not-Taking metFORMIN HCl 500 MG 1 tablet with a meal Orally Twice a day Not-Taking Pregabalin 25 MG 1 capsule Orally twice a day Active traMADol HCl 50 MG 1 tablet as needed Orally every 6 hrs Not-Taking Diabetic Insoles Not -Taking Irbesartan 300 MG 1 tablet Orally Once a day; Duration: 30 day(s) Active glyBURIDE Not-Taking Loratadine 10 MG 1 tablet Orally Once a day; Duration: 30 day(s) Active Vitamin D3 Active Immunizations Vaccine Route Administration Date Status Comme nts Influenza Unknown 11/23/2014 Administered Influenza Unknown 10/18/2021 Administered Influenza Unknown 12/18/2022 Administered Social History Tobacco Use: Social History Observation Description Date Details (start date - stop date) Never Smoker NA - NA Alcohol Screen Question Answer Notes Did you have a drink containing alcohol in the p ast year? No Points 0 Interpretation Negative Tobacco use other than smoking: Question Answer Notes Are you an other tobacco user? No Tobacco Control (Standard) Question Answer Notes Tobacco use: Nonsmoker Problems Problem Type SNOMED Code ICD Code Onset Dates Problem Status W/U Status Risk Notes Problem Acquired hammer toe of right foot (3009230800391905 ) Other hammer toe(s) (acquired), right foot (M20.41) Active confirmed Problem Acquired hammer toe of left foot (1391775056881855 ) Other hammer toe(s) (acquired), left foot (M20.42) Active confirmed Problem Polyneuropathy due to type 2 diabetes mellitus (778864321) Type 2 diabetes mellitus with diabetic polyneuropathy (E11.42) Active confirmed Vital Signs Blood pressure diastolic 74 mm Hg 06/24/2024 Height 5ft7in in 06/24/2024 Blood pressure systolic 116 mm Hg 06/24/2024 Weight 226 lbs 06/24/2024 BMI 35.39 kg/m2 06/24/2024 Procedures Procedure Date Ordered Date Performed Result Body Sit e 96486-MRRBWRW NAIL, 1-5 12/25/2023 N/A 00969-HOXO SKIN LESIONS, 2 TO 4 12/25/2023 N/A 38208-OPXIHPO NAIL, 1-5 06/24/2024 N/A 18474-YTHJ SKIN LESIONS, 2 TO 4 06/24/2024 N/A H4177-MVPSIVXA DYSTROPHIC NAILS ANY # 06/24/2024 N/A Encounters Encounter [facility] Date [facility] [address] 12/25/2023 Cass Black Type 2 diabetes mellitus with diabetic polyneuropathy E11.42 ; Tinea pedis B35.3 ; Tinea unguium B35.1 and Skin maceration L98.[address] [address] 06/24/2024 Cass Black Tinea pedis B35.3 ; Other hammer toe(s) (acquired), right foot M20.41 ; Type 2 diabetes mellitus with diabetic polyneuropathy E11.42 ; Tinea unguium B35.1 ; Skin maceration L98.8 and Other hammer toe(s) (acquired), left foot M20.42 Assessments Encounter Date Diagnosis (ICD Code) Assessment Notes Treatment Notes Treatment Clinical Notes Section Notes 12/25/2023 Tinea pedis (ICD-10 - B35.3) 12/25/2023 Type 2 diabetes mellitus with diabetic polyneuropathy (ICD-10 - E11.42) 06/24/2024 Other hammer toe(s) (acquired), right foot (ICD-10 - M20.41) Patient Educated with: DIABETIC FOOT CARE INSTRUCTIONS. pdf (DIABETIC FOOT CARE INSTRUCTIONS. pdf) 06/24/2024 Tinea pedis (ICD-10 - B35.3) 06/24/2024 Type 2 diabetes mellitus with diabetic polyneuropathy (ICD-10 - E11.42) 12/25/2023 Tinea unguium (ICD-10 - B35.1) 12/25/2023 Skin maceration (ICD-10 - L98.8) 06/24/2024 Tinea unguium (ICD-10 - B35.1) 06/24/2024 Skin maceration (ICD-10 - L98.8) 06/24/2024 Other hammer toe(s) (acquired), left foot (ICD-10 - M20.42) Plan Of Treatment Pending Test Test Name Order Date Hemoglobin A1c 01/30/2015 29002-SXLYNZQ NAIL, 6 OR MORE 01/13/2012 50859-DQGZSXP NAIL, 6 OR MORE 06/29/2012 07917-TIAAXNB NAIL, 6 OR MORE 12/24/2012 21892-WNBCLRW NAIL, 6 OR MORE 01/07/2011 08033-AMGFNQF NAIL, 6 OR MORE 06/24/2013 75297-OOTQTVO NAIL, 1-5 07/08/2011 79462-LQELWEF NAIL, 1-5 01/10/2014 89999-CQEOSDI NAIL, 1-5 06/30/2014 24239-ILXOVJP NAIL, 1-5 01/30/2015 75040-ZYXVHRI NAIL, 1-5 07/27/2015 13101-FMHIDLG NAIL, 1-5 12/25/2023 46668-PHHEHVR NAIL, 1-5 06/24/2024 12434-TQRUQWF NAIL, 1-5 01/15/2016 70805-MFLWMQU NAIL, 1-5 08/30/2021 76547-QIGBLPI NAIL, 1-5 01/21/2022 48037-IJTPGLG NAIL, 1-5 11/07/2022 23270-UIGBIKO NAIL, 1-5 06/26/2023 94650-Cuymvxbr Plate 08/30/2021 15409-MIEL SKIN LESIONS, 2 TO 4 01/15/20 16 98546-VFLJ SKIN LESIONS, 2 TO 4 12/25/19 24 74970-EAVE SKIN LESIONS, 2 TO 4 06/25/19 25 65348-ZWDH SKIN LESIONS, 2 TO 4 01/31/20 15 87954-MZWI SKIN LESIONS, 2 TO 4 07/27/19 16 73200-MQEL SKIN LESIONS, 2 TO 4 07/01/19 15 84757-RJGE SKIN LESIONS, 2 TO 4 06/25/19 14 24888-XYXT SKIN LESIONS, 2 TO 4 01/11/20 14 30135-BOUN SKIN LESIONS, 2 TO 4 12/25/19 13 51801-BKUF NAIL(S) 06/30/2014 55027-QTKP NAIL(S) 01/10/2014 82959-LJCM NAIL(S) 07/27/2015 34714-APIY NAIL(S) 01/30/2015 10869-OPFQ NAIL(S) 01/15/2016 O6640-XZQWVFYQ DYSTROPHIC NAILS ANY # D0725-QZEZMKVL DYSTROPHIC NAILS ANY # Next Appt Details Provider Name:Cass Lugo , 12/23/2024 02:00:00 PM, [address] [place], [address], Insurance Providers Payer Name Payer Address Payer Phone Subscriber Number Group Number Insured Name Patient Relationship to Insured Coverage Start Date Coverage End Date [employer] POS [address] [address] [place] [phone] [id number] [employer] [place] Self - patient is the insured Medical (General) History Medical History History ICD Code warts thyroid disorder reflux kidney disease hypertension diabetic chicken pox Back,Hip,and Knee pain Cancer Kidney disease Numbness Sciatica Joint implants/screws Surgical History Surgery Date(Month/Year) laparotomy 2002 colonoscopy 2011 tonsillectomy and adenoidectomy Late 89 0's deviated septum repair 1998 prostatectomy 2003 discectomy LS/S1 09/2016 fusion LS/S1 04/2017
--- OUTSIDE RECORDS SUMMARY | 2024-10-22 10:55 | XMS_ITS | Clinical Summary ---
Author Organization [facility] Address [address] [place] [address] Care Team Providers Care Head Porter Name Role Phone Unavailable Primary Care Provider [...] COVID-19 Vaccine ( - 2023-2 5 season) 2024 RSV Vaccine 60 years and old er and Patients (1 - 1-dose 75+ series) 01/10/2036 Hepatitis B Vaccines Aged Out No long er eligible based on patient's age to complete this topic
--- OUTSIDE RECORDS SUMMARY | 2024-10-22 10:55 | XMS_ITS | Clinical Summary ---
Author Organization [facility] Address [address] [facility] [address] [place] [phone] Phone Care Team Providers Care Loin Puller Name Role Phone Lev Gordon MD Primary Care Prov ider Gato Álvarez MD Unavailable Allergies Active Allergy Reactions Criticality Noted Date Comments Aspirin 08/30/2021 Other reaction(s): Other (see comments), renal shutdown Hazelnut Other (See Comments) 08/30/2021 Other reaction(s): migraines Ibuprofen 08/30/2021 Other reaction(s): Other (see comments), renal shutdown Ketorolac Tromethamine 07/23/2016 Lovastatin 09/30/2011 Naproxen 08/30/2021 Other reaction(s): Other (see comments), renal shutdown Nsaids (Non-Steroidal Anti-Inflammatory Drug) Other (See Comments) 05/10/2020 Other reaction(s): renal shutdown Spironolactone Swelling 12/22/2008 Medications atorvastatin (LIPITOR) 40 MG tablet 1 tablet Orally Once a day for 30 day(s) 2 Active traZODone (DESYREL) 50 MG tablet Take 50 mg by mouth. Active magnesium oxide 500 mg Tab Take 500 mg by mouth. 2 Active cholecalciferol (VITAMIN D3) 25 MCG (1,000 unit) tablet 25 mcg. 2 Active baclofen (LIORESAL) 10 MG tablet Take 10 mg by mouth 3 (three) times a day. 2 Active aspirin 81 MG EC tablet Take 1 tablet by mouth. Active amLODIPine (NORVASC) 5 MG tablet 1 tablet Orally Once a day for 30 day(s) 2 Active OMEGA-3 FATTY ACIDS-FISH OIL ORAL Take 1 tablet by mouth. Active irbesartan (AVAPRO) 300 MG tablet Take 300 mg by mouth daily. Active cyanocobalamin, vitamin B-12, 250 MCG tablet Take 500 mcg by mouth daily. Active loratadine (CLARITIN) 10 mg tablet Take 10 mg by mouth daily. Active semaglutide (OZEMPIC) 1 mg/dose (4 mg/3 mL) subcutaneous injection penIndications:Ty pe 2 diabetes mellitus with peripheral neuropathy Inject 1 mg under the skin every 7 days. 3 mL 5 4 Active levothyroxine (SYNTHROID, LEVOTHROID) 100 MCG tablet Take 2 tablets (200 mcg total) by mouth. 2 pills orally four days/week, 1 tab three days/week, or as directed 4 Active empagliflozin (JARDIANCE) 25 mg tablet Take 25 mg by mouth daily. Active semaglutide (OZEMPIC) 2 mg/dose (8 mg/3 mL) subcutaneous injection penIndications:Ty pe 2 diabetes with nephropathy Inject 2 mg under the skin every 7 days. 6 mL 1 4 Active Active Problems Problem Noted Date Diagnosed Date Allergic rhinitis 11/28/2022 11/28/2022 Overview (11/28/2022): Sep 23, 2011 Entered By: CESAR ROD Comment: on allergy injections since 2010 Anemia 11/28/2022 11/28/2022 Carpal tunnel syndrome 11/28/2022 Constipation 11/28/2022 11/28/2022 Erectile dysfunction 11/28/2022 11/28/2022 Hyperlipidemia 11/28/2022 11/28/2022 Insomnia 11/28/2022 11/28/2022 Lumbar radiculopathy 11/28/2022 11/28/2022 Malignant neoplasm of prostate 11/28/2022 1 Migraine headache 11/28/2022 11/28/2022 Obstructive sleep apnea syndrome 11/28/2022 11/28/2022 Overview (11/28/2022): Aug 17, 2022 Entered By: LEV GORDON Comment: 2022 sleep study moderate LYN, AHI 26- on CPAP Vitamin D deficiency 11/28/2022 11/28/2022 Acquired hypothyroidism 07/05/2022 07/06/19 Assessment & Plan (01/01/2024 4:52 PM EST): TSH remains minimally low on current rx. Will cut back on rx to 2 pills 4 days/week, 1 pill 3 days/week. To have labs repeated when sees PCP in February. Assessment & Plan (06/20/2023 5:05 PM EDT): TSH minimally low on current rx. Will cut back on rx to 2 pills 5 days/week, 1 pill 2 days/week. To have labs repeated when sees PCP over the summer. Assessment & Plan (11/28/2022 5:17 PM EDT): Euthyroid on previous labs, were done on labs today, will message me w/ results. Assessment & Plan (07/05/2022 10:26 AM EDT): TSH was 0.65 on recent blood work from 06/24/22. He is consistent with taking his levothyroxine. No changes needed at this time Type 2 diabetes with nephropathy 07/05/2022 07/05/2022 Assessment & Plan (01/01/2024 4:54 PM EST): Control reasonable, not optimal, HbA1c remains > target despite increase in ozempic at last visit, but has been in a lot of pain/less active w/ back pain & getting intermittent steroid injections. Will increase ozempic to 2 mg weekly. Given renal function would not anticipate a significant glycemic benefit from the empagliflozin. Continue to work on eating healthy & keeping active. To call or send in BG with problems with glycemic control. Scheduled with ophtho. Following w/ renal. BP controlled. Assessment & Plan (06/20/2023 5:07 PM EDT): Control reasonable, not optimal. Discussed options to improve control with risks/benefits - including glycemic & non-glycemic (weight/renal/CV). Will increase ozempic to 1 mg weekly. It is unlikely he is getting much glycemic benefit from the empagliflozin, would defer to renal whether to adjust that for renal protection. Continue to work on eating healthy & keeping active. To call or send in BG with problems with glycemic control. Up to date with ophtho. Following w/ renal. BP controlled. Assessment & Plan (11/28/2022 5:19 PM EDT): Control uncertain, no recent HbA1c available & no SMBG. [facility], will send me results via portal & we can determine if ozempic dosage should be increased as may need higher dose to compensate for the loss of metformin which was held due to concern @ renal function (although eGFR has been typically > 30 although had recent level of ~ 29). Continue to work on eating healthy & keeping active. To call or send in BG with problems with glycemic control. Up to date with ophtho. Following w/ renal. BP controlled. On SGLT2i. Assessment & Plan (07/05/2022 10:32 AM EDT): Control is reasonable based upon the patient's SMBG readings and his recent A1C of 7.6%. He is not using any medications to cause hypoglycemia. In agreence with the patient's ventilating expert, Dr Presley, that it is safe for the patient to continue using 500 mg BID of metformin. He is scheduled to meet with a pharmacist at the [facility] to start using ozempic to replace his metformin. Reviewed the risks and benefits of ozempic. Discussed that this can be used in addition to the metformin. Will maintain his regimen. He is going to work on improving his diet further. Continue to trying to be as active as tolerated. Up to date with ophtho. Sees podiatry. Acquired hammer toe of right foot 09/12/2021 11/28/2022 Hypertension 12/27/2020 11/28/2022 Focal segmental glomerulosclerosis 05/10/2020 11/28/2022 Overview (11/28/2022): past biopsy, Dr Lenz Nephrology following past biopsy, Dr Lenz Nephrology following Type 2 diabetes mellitus with peripheral neuropa thy Assessment & Plan (01/01/2024 4:54 PM EST): Sees podiatry. Assessment & Plan (06/20/2023 5:08 PM EDT): Sees podiatry. 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 Rx per podiatry Assessment & Plan (11/28/2022 5:18 PM EDT): Rx per podiatry Social History Tobacco Use Types Packs/Day Years Used Date Smoking Tobacco: Former Cigarettes Q uit: 1989 Pipe Quit: 1989 Smokeless Tobacco: Former Chew Quit: 1989 Tobacco Cessation:Counseling Given: Not Answered Alcohol Use Standard Drinks/Week Comments Never 0 (1 standard drink = 0.6 oz pur e alcohol) Education Answer Date Recorded Are you interested in more education? Not on christen e 06/14/2022 Are you concerned about learning? Not on file 06/14/2022 No 06/14/2022 No 06/14/2022 Digital Access Answer Date Recorded No 07/15/2022 No 07/15/2022 Reliable internet access at home? Not on file 07/15/2022 Device with a working camera? Not on file Sex and Gender Information Value Date Recorded Sex Assigned at Male 05/16/2021 12:18 PM EDT Legal Sex Male 10:34 PM EDT Gender Identity Male 05/16/2021 12:18 PM EDT Sexual Orientation Straight 05/16/2021 12 :18 PM EDT Last Filed Vital Signs Vital Sign Reading Time Taken Comments Blood Pressure 124/84 01/01/2024 3:47 PM EST Pulse 72 06/19/2023 3:47 PM EDT Temperature 36.2 C (97.2 F) 06/19/2023 3:47 PM EDT Respiratory Rate - - Oxygen Saturation 97% 06/19/2023 3:47 PM EDT Inhaled Oxygen Concentration - - Weight 106.2 kg (234 lb 3.2 oz) 01/01/2024 3:47 PM EST Height 170.2 cm (5' 7.01 ) 01/01/2024 3:47 PM ES T Body Mass Index 36.67 01/01/2024 3:47 PM EST Plan of Treatment Upcoming Encounters Date Type Department Care Team (Late st Contact Info) Description 11/02/2024 8:40 AM EDT Office Visit [facility] [address] [phone] Myla Cowan MD [address] [place] [phone] Health Maintenance Due Date Last Done Comments DEPRESSION SCREENING 1973 HEPATITIS C SCREENING 1979 HIV ONE-TIME SCREENING (18-65 YEARS) 1979 COLOGUARD 2006 COLONOSCOPY 2006 COLORECTAL CANCER SCREENING 2006 FIT TEST 2006 FOBT 2006 SIGMOIDOSCOPY 2006 VIRTUAL COLONOSCOPY 2006 RSV VACCINE (1 - Risk 60-74 years 1-dose series) 2021 PNEUMOCOCCAL VACCINES (50+ years) (4 of 4 - PCV20 or PCV21) 11/18/2021 11/18/2016, 10/12/2013, 10/06/2013, Additional history exists DIABETIC EYE EXAM 01/08/2024 01/07/2023 HEMOGLOBIN A1C 06/28/2024 12/30/2023 BLOOD PRESSURE 06/30/2024 01/01/2024 INFLUENZA VACCINE (#1) 2024 2, 11/16/2020, 11/02/2020, Additional history exists COVID-19 VACCINE (3 - season) 2024 12/18/2020, 11/27/2020 CREATININE LEVEL 12/29/2024 12/30/2023 POTASSIUM LEVEL 12/29/2024 12/30/2023 TSH LEVEL 12/29/2024 12/30/2023 SMOKING Hx and SMOKELESS TOBACCO SCREENING 12/31/2024 01/01/2024 Adult Td,Tdap Booster 03/29/2030 03/29/2020, 003 ZOSTER VACCINES Completed 02/27/2022, 12/18, 01/05/2014 HEPATITIS A VACCINES Aged Out No long er eligible based on patient's age to complete this topic HIB VACCINES Aged Out No longer eligi ble based on patient's age to complete this topic MENINGOCOCCAL VACCINES (ACWY) Aged Out No longer eligible based on patient's age to complete this topic MENINGOCOCCAL VACCINES (B) Aged Out N o longer eligible based on patient's age to complete this topic Medical Devices Not on file Procedures Procedure Name Priority Date/Time Associated Diagnosis Comments HEMOGLOBIN A1C Routine 12/30/2023 3:07 PM EST Type 2 diabetes with nephropathy TSH WITH REFLEX Routine 12/30/2023 3:07 PM EST Acquired hypothyroidism BASIC METABOLIC PANEL Routine 12/30/2023 3:07 PM EST Type 2 diabetes with nephropathy from Last 3 Months or Most Recently Relevant to Health Maintenance Results * (ABNORMAL) TSH with reflex (12/30/2023 3:07 PM EST) TSH 0.20(L) 0.27 - 4.20 uIU/mL [facility] Blood 12/30/2023 3:07 PM EST 12/30/2023 3:09 PM EST us Myla Cowan MD LAB BLOOD ORDERABLES F inal Result [facility] [address] [place] [address] * (ABNORMAL) Hemoglobin A1c (12/30/2023 3:07 PM EST) HEMOGLOBIN A1C 7.6(H) 4.3 - 5.8 % [facility] Blood 12/30/2023 3:07 PM EST 12/30/2023 3:09 PM EST Myla Cowan MD LAB BLOOD ORDERABLES F inal Result Performing Organization Address City/[facility]/ZIP Co de Phone Number [address] [address] * (ABNORMAL) Basic metabolic panel (12/30/2023 3:07 PM EST) SODIUM 140 133 - 146 mmol/L [facility] CHLORIDE 104 96 - 108 mmol/L [facility] POTASSIUM 5.2(H) 3.3 - 5.1 mmol/L [facility] CO2 27 21 - 35 mmol/L [facility] BUN 39(H) 6 - 19 mg/dL [facility] CREATININE 2.00(H) 0.5 - 1.5 mg/dL [facility] GLUCOSE 177(H) 70 - 99 mg/dL [facility] CALCIUM 9.6 8.4 - 10.3 mg/dL [facility] EGFR 37(L) >59 mL/min/1.7 3m2 [facility] Comment:Estimated glomerular filtration rate calculated using the CKD-EPI refit equation. ANION GAP 14 10 - 20 mmol/L [facility] Blood 12/30/2023 3:07 PM EST 12/30/2023 3:09 PM EST Myla Cowan MD LAB BLOOD ORDERABLES F inal Result [address] [address] from Last 3 Months or Most Recently Relevant to Health Maintenance Insurance [facility] [place] [id number] [facility]ETNA PPO [facility] AETNA O [facility] [employer]ET[employer] PPO [facility] AETNA PPO [facility] [employer] PPO Care Teams Loin Puller Relationship Specialty Start Date End Date Lev Gordon MD [address] [place] [phone] PCP - General Internal Medicine 05/16/21 Gato Álvarez MD [address] [place] [phone] Nephrology 01/01/24 Additional Source Comments The information contained in this document represents components of the legal health record. It is not the complete legal health record.[facility]ly [facility]
--- OUTSIDE RECORDS SUMMARY | 2024-10-22 10:55 | XMS_ITS | Clinical Summary ---
Author Organization [facility] Address [address] [place] [address] Phone Care Team Providers Care Electrical Maintenance Engineer Name Role Phone Dylan Christianson MD Primary [...] mouth 1 (one) time each day Active [place]-3 Fatty Acids (Fish Oil) 1000 MG capsule [...] Comment: focal segment[facility] glomerulosclerosis [facility] Entered By: KAYDEN CHESTER Comment: [...] 30+ - obesity 03/14/2021 03/14/2021 Overview (03/14/2021): vocational counselor Carpal tunnel syndrome 03/14/202103/14 Chronic rhinitis [...] Exam 03/20/2020 Diabetes: Visual Foot Exam 03/20/2020 Pneumococcal Vaccine: 50+ Years (4 of 4 - PCV20 or PCV21) 11/18/2021 11/18/2016, 10/12/2013, 10/06/2013, Additional history exists Influenza Vaccine (#1) 2024 3, 12/24/2021, 11/02/2020, Additional history exists Hepatitis B Vaccine Aged Out 05/12/2014, 11/12/2013, 10/12/2013 No longer eligible based on patient's age to complete this topic Pneumococcal Vaccine: Peds (0 to 5 Years) and At-Risk Patients (6 to 49 Years) Discontinued 11/18/2016, 10/12/2013, 10/06/2013, Additional history exists Procedures Procedure Name Priority Date/Time Associated Diagnosis [...] mg/dl PVNMA 08/23/2019 us Rtama Conversion LAB [id number] LICITED RESULTS Final Result PVNMA from Last 3 Months or Most Recently Relevant to Health Maintenance Insurance Aetna Commercial Aetna Commercial Care Teams Electrical Maintenance Engineer Relationship Specialty Start Date End Date Dylan Christianson MD [address] [place] [address] [phone] PCP - General 05/10/20
--- OUTSIDE RECORDS SUMMARY | 2024-10-22 10:55 | XMS_ITS ---
Author Name [facility] Organization Unknown Care Team Organization Name Specialty Phone Email Start Date End [facility]
[2024-10-22 13:49] LABS: Anion Gap 13 (12-20); Blood Urea Nitrogen 38 mg/dL (9-16); Carbon Dioxide 25 mmol/L (22-29); Chloride 105 mmol/L (96-108); Estimated Glomerular Filt Rate 29; Potassium 4.8 mmol/L (3.3-5.1); Sodium 138 mmol/L (135-145)
[2024-10-22 14:01] LABS: Protein/Creatinine Ratio, Ur 2.89 (<0.2); Total Protein Urine Random 177 mg/dL (<12)
== END 2024-10-22 10:00 | disposition home or self-care (01) ==
LOC: HO.HMGCLDS 09:59
PROVIDERS: PCP Internal Medicine; Visit Provider Internal Medicine Nephrology
DX: N18.31 Chronic kidney disease, stage 3a (principal); I15.1 Hypertension secondary to other renal disorders; N04.1 Nephrotic syndrome with focal and segmental glomerular lesions; R80.8 Other proteinuria
CPT/HCPCS: 36415; 80051; 82565; 82570; 84156; 84520

== ENCOUNTER 2024-10-27 15:24 | Outpatient (AMB) | payer OTHER, SELFPAY ==
--- OUTSIDE RECORDS SUMMARY | 2023-05-15 10:30 | XMS_ITS ---
Author Organization [facility] Address [address] [place] [address] Care Team Providers Care Outlet Manager Name Role Phone Dylan Cat Primary Care Provider Unavailable Cass Lugo [phone] Encounters Encounter Location Date Provider Diagnosis [address] [address] 05/15/2023 [facility] Plan Of Treatment Next Appt Details Provider Name:Cass Lugo , 12/23/2024 02:00:00 PM, [address] [place] [address], [phone], Progress Notes * Major SMILEY JrDOB: (64 yo M)Acc No.[id number]:05/15/2023 Progress Note Patient: Kendall Major BARILLAS Provider: Gaby Lugo DPM :1960 A ge:63 Y S ex:Male Date:05/15/2023 Address:[address] [id number] Pcp:Dylan villalobos Subjective: * Chief Complaints: * * Medical History: Objective: * Vitals: Assessment: Plan: * Treatment: * Images: * The named appointment provid er may or may not be the originator of this progress note, and it is not deemed complete until electronically signed by the appointment provider. Sign off status: Pending * Provider: Gaby Lugo DPM Date: 0 05/15/2023 Generated for Oumou Whipple on: 0 10/27/2024 06:20 PM EDT
--- OUTSIDE RECORDS SUMMARY | 2023-06-05 06:00 | XMS_ITS ---
Author Organization [facility] Address [address] [place] [address] Care Team Providers Care District Or District Office Director Name Role Phone Dylan Cat Primary Care Provider Unavailable Cass Lugo [phone] Encounters Encounter Location Date Provider Diagnosis [address] [address] 06/05/2023 [facility] Plan Of Treatment Next Appt Details Provider Name:Cass Lugo , 12/23/2024 02:00:00 PM, [address] [place] [address], [phone], Progress Notes * Major SMILEY JrDOB: (64 yo M)Acc No.[id number]:06/05/2023 Progress Note Patient: Kendall Major BARILLAS Provider: [...] 06/05/2023 Generated for Oumou Whipple on: 0 10/27/2024 06:20 PM EDT
--- NOTE | 2024-10-27 15:38 | HO.NEPHOV_ITS ---
Vital Signs 10/27/24 15:39 Height 5 ft 7 in Weight 233 lb 8 oz BMI 36.6 BP 138/64 Blood Pressure Location Lt brachial Position Sitting Intake Visit Reasons: 4 MO [facility] Support Required: No Accompanied by: Spouse Allergies NSAIDS (Non-Steroidal Anti-Inflamma Allergy (Severe, Verified 10/27/24 15:39) other hazelnut Allergy (Verified 10/27/24 15:39) Unknown HPI Comments Details: Braden was seen in follow-up of his chronic kidney disease, proteinuria on a backdrop of biopsy-proven primary FSGS in the past. He recently had COVID and had been having pulmonary issues which is better now. His D Dimer was negative and USS of the LE was negative for DVT. He has not had a cardiology follow up. In the recent past, he had a renal biopsy which showed FSGS and diabetic nephropathy. His blood sugars are still running high but better. He has lost weight on Ozempic. He is tolerating Jardiance well. He was on sparsentan which has been changed to Irbesartan. He has no edema. He has D/Micheal Pregabalin due to side effects. He has been taken laxatives. [facility] Medical History Hypertension FSGS (focal segmental glomerulosclerosis) with nephrosis Chronic kidney disease, stage 3a Proteinuria Surgical History History of tonsillectomy and adenoidectomy History of prostate surgery History of back surgery Social History Alcohol intake: never Patient Tobacco Use Status: Former Tobacco user Review of Systems Const All systems reviewed & are unremarkable except as noted in HPI and below Physical Exam Const General: comfortable and no acute distress Orientation/consciousness: patient oriented x3 HEENT Head: Yes normocephalic Mouth: Normal oral and palatal mucosa present Eyes EOM: EOMs intact bilaterally Neck Neck: Yes supple Resp Auscultation: clear to auscultation bilaterally Cardio Jugular venous distension: no JVD Rate: regular rate GI Palpation (GI): Soft to palpation Auscultation: normal bowel sounds General: Yes no CVA tenderness Back/Spine/Pelvis Back: no CVA tenderness Skin General skin exam: no rashes or lesions noted Neuro General: patient oriented x3 and moves all extremities Extrem General: Yes no pedal edema Results Reviewed Nephrology Results: Hgb, (14.0-18.0) 14.4 g/dl 03/22/24 WBC, (4.8-10.8) 8.1 X10*3/uL 03/22/24 Plt Count, (160-400) 237 X10*3/uL Δ 03/22/24 Sodium, (135-145) 138 mmol/L 10/22/24 Potassium, (3.3-5.1) 4.8 mmol/L 10/22/24 Chloride, (96-108) 105 mmol/L 10/22/24 Carbon Dioxide, (22-29) 25 mmol/L 10/22/24 BUN, (9-16) 38 mg/dL H 10/22/24 Creatinine, (0.5-1.4) 2.27 mg/dL H 10/22/24 Calcium, (8.4-10.2) 9.4 mg/dL 03/22/24 Urine Creatinine 61.30 mg/dL 10/22/24 Protein/Creatinin Ratio, (<0.2) 2.89 H 10/22/24 Assessment & Plan Assessment & Plan (1) Hypertension: Code(s): I10 - Essential (primary) hypertension Category: Medical Qualifiers: Hypertension type: secondary to other renal disorders Qualified Code(s): I15.1 - Hypertension secondary to other renal disorders (2) Chronic kidney disease, stage 3a: Code(s): N18.31 - Chronic kidney disease, stage 3a Category: Medical (3) FSGS (focal segmental glomerulosclerosis) with nephrosis: Code(s): N04.1 - Nephrotic syndrome with focal and segmental glomerular lesions Category: Medical (4) Proteinuria: Code(s): R80.9 - Proteinuria, unspecified Category: Medical Qualifiers: Proteinuria type: other Qualified Code(s): R80.8 - Other proteinuria Plan Braden carries a diagnosis of biopsy-proven primary FSGS. He has taken immunosuppression in the past. He has history of prostate cancer needing surgery. He had been on sparsentan which was changed to Irbesartan( as he is not in the FSGS study anymore) . His serum creatinine has been stable. He is on Jardiance. He has no retinopathy or neuropathy. He needs to lose more weight and keeps his blood sugar under better control. He avoids nonsteroidal anti- inflammatories and maintain good hydration. I reiterated the importance of blood sugar control, lifestyle modification, weight loss and importance of monitoring potassium, renal functions and urine protein. I answered all his questions.F/U given Orders: Orders Blood Urea Nitrogen 3 Months I15.1 - Hypertension secondary to other renal disorders, N04.1 - Nephrotic syndrome with focal and segmental glomerular lesions, N18.31 - Chronic kidney disease, stage 3a, R80.8 - Other proteinuria Protein Creatinine Ratio, Ur 3 Months I15.1 - Hypertension secondary to other renal disorders, N04.1 - Nephrotic syndrome with focal and segmental glomerular lesions, N18.31 - Chronic kidney disease, stage 3a, R80.8 - Other proteinuria Creatinine 3 Months I15.1 - Hypertension secondary to other renal disorders, N04.1 - Nephrotic syndrome with focal and segmental glomerular lesions, N18.31 - Chronic kidney disease, stage 3a, R80.8 - Other proteinuria Electrolytes 3 Months I15.1 - Hypertension secondary to other renal disorders, N04.1 - Nephrotic syndrome with focal and segmental glomerular lesions, N18.31 - Chronic kidney disease, stage 3a, R80.8 - Other proteinuria Coding Level of Care Code Est Pt Level 4 (73233) Diagnoses Hypertension secondary to other renal disorders I15.1 Hypertension type: secondary to other renal disorders Chronic kidney disease, stage 3a N18.31 FSGS (focal segmental glomerulosclerosis) with nephrosis N04.1 Other proteinuria R80.8 Proteinuria type: other
[2024-10-27 15:39] VITALS: BP 138/64; BMI 36.6
--- OUTSIDE RECORDS SUMMARY | 2024-10-27 18:20 | XMS_ITS | Patient Health Record ---
[facility] Address [address] [place] [address] Care Team Providers Care Hydroelectric Machinery Mechanic Helper Name Role Phone Dylan Cat Primary Care Provider Unavailable Black, Cass Unavailable [phone] Allergies Allergen (clinical drug ingredient) Drug/Non Drug [...] Problem Acquired hammer toe of right foot (7797742249050056 ) Other hammer toe(s) (acquired), right foot (M20.41) Active confirmed Problem Acquired hammer toe of left foot (6348287243868173 ) Other hammer toe(s) (acquired), left foot (M20.42) Active confirmed Problem Polyneuropathy due to type 2 diabetes mellitus (794225389) Type 2 diabetes mellitus with diabetic polyneuropathy (E11.42) Active confirmed Vital Signs Blood pressure diastolic 74 mm Hg 06/24/2024 Height 5ft7in in 06/24/2024 Blood pressure systolic 116 mm Hg 06/24/2024 Weight 226 lbs 06/24/2024 BMI 35.39 kg/m2 06/24/2024 Procedures Procedure Date Ordered Date Performed Result Body Sit e 82213-JHHWKZB NAIL, 1-5 12/25/2023 N/A 40725-DNAR SKIN LESIONS, 2 TO 4 12/25/2023 N/A 54564-PBLOFCH NAIL, 1-5 06/24/2024 N/A 64939-ZPCM SKIN LESIONS, 2 TO 4 06/24/2024 N/A [id number] DYSTROPHIC NAILS ANY # 06/24/2024 N/A Encounters Encounter Location Date [facility] [address] 12/25/2023 Cass Black Type 2 diabetes mellitus with diabetic polyneuropathy E11.42 ; Tinea pedis B35.3 ; Tinea unguium B35.1 and Skin maceration L98.[address] [address] 06/24/2024 Cass Black Tinea pedis B35.3 ; [...] Test Name Order Date Hemoglobin A1c 01/30/2015 [id number]-[id number] NAIL, 6 OR MORE 01/13/2012 88880-RXLNCEZ NAIL, 6 OR MORE 06/29/2012 54407-KMLUTTG NAIL, 6 OR MORE 12/24/2012 41507-IAXKYIQ NAIL, 6 OR MORE 01/07/2011 12048-RAXFLHY NAIL, 6 OR MORE 06/24/2013 77477-DPIOOCF NAIL, 1-5 07/08/2011 31538-FUBQMVB NAIL, 1-5 01/10/2014 75207-PJTRMOB NAIL, 1-5 06/30/2014 70740-NDGFFWK NAIL, 1-5 01/30/2015 47523-OSPNWCO NAIL, 1-5 07/27/2015 71296-LPCWAFD NAIL, 1-5 12/25/2023 98053-HKIAFHD NAIL, 1-5 06/24/2024 29402-PNFJNDR NAIL, 1-5 01/15/2016 41270-XAVKDUG NAIL, 1-5 08/30/2021 75155-QUFYIIM NAIL, 1-5 01/21/2022 79688-YETYXWS NAIL, 1-5 11/07/2022 37652-NWRJCED NAIL, 1-5 06/26/2023 75859-Xtjfibjt Plate 08/30/2021 11414-WTSO SKIN LESIONS, 2 TO 4 01/15/20 16 82209-MGCN SKIN LESIONS, 2 TO 4 12/25/19 24 29347-SWWK SKIN LESIONS, 2 TO 4 06/25/19 25 03147-NTAZ SKIN LESIONS, 2 TO 4 01/31/20 15 11213-ASNO SKIN LESIONS, 2 TO 4 07/27/19 16 83009-TKRE SKIN LESIONS, 2 TO 4 07/01/19 15 22982-SFHR SKIN LESIONS, 2 TO 4 06/25/19 14 54781-PMNJ SKIN LESIONS, 2 TO 4 01/11/20 14 69556-BOEL SKIN LESIONS, 2 TO 4 12/25/19 13 66946-JABY NAIL(S) 06/30/2014 46994-ESQY NAIL(S) 01/10/2014 43696-WSUI NAIL(S) 07/27/2015 47453-ONSM NAIL(S) 01/30/2015 72377-KDEZ NAIL(S) 01/15/2016 N8290-FCOHJPSY DYSTROPHIC NAILS ANY # E2539-ECZFBPWA DYSTROPHIC NAILS ANY # Next Appt Details Provider Name:Cass Lugo , 12/23/2024 02:00:00 PM, [address] [place], [address], Insurance Providers Payer Name Payer Address Payer Phone Subscriber Number Group Number Insured Name Patient Relationship to Insured Coverage Start Date Coverage End Date Aetna Choice POS [address] [address] [place] [address] [id number] Major Tidwell Self - patient is the [...]
--- OUTSIDE RECORDS SUMMARY | 2024-10-27 18:20 | XMS_ITS | Encounter Summary ---
Author Organization [facility] Address [address] [place] [address] Care Team Providers Care Securities Attorney Name Role Phone Unavailable Primary Care Provider Unavailabl e Encounter Details Date Type Department Care Team (Late st Contact Info) Description 08/30/2021 Scanned Document [address] [address] Podiatry, Scan Social History Tobacco [...]
--- OUTSIDE RECORDS SUMMARY | 2024-10-27 18:20 | XMS_ITS | Clinical Summary ---
Author Organization [facility] Address [address] [place] [address] Care Team Providers Care Employment Service Specialist Name Role Phone Downey, Araceli Griffin MD [...] age to complete this topic Care Teams Employment Service Specialist Relationship Specialty Start Date End Date Araceli Downey MD [address] [place], [place] [address]t [facility] [place] PCP - General Internal Medicine 09/02/16
--- OUTSIDE RECORDS SUMMARY | 2024-10-27 18:20 | XMS_ITS | Clinical Summary ---
Author Organization [facility] Address [address] [place] [address] Phone Care Team Providers Care Manager Managing Name Role Phone Dylan Christianson MD Primary [...] mouth 1 (one) time each day Active [place]-3 Fatty Acids (Fish Oil) 1000 MG capsule [...] Comment: focal segmental glomerulosclerosis Dr. Lenz Stage [facility] 2007 Entered By: KAYDEN CHESTER Comment: Proteinuria [...] 30+ - obesity 03/14/2021 03/14/2021 Overview (03/14/2021): academic counselor Carpal tunnel syndrome 03/14/202103/14 Chronic rhinitis [...] mg/dl PVNMA 08/23/2019 us [facility] [id number] LICITED RESULTS Final Result PVNMA from Last 3 Months or Most Recently Relevant to Health Maintenance Insurance Aetna Commercial Aetna Commercial Care Teams Manager Managing Relationship Specialty Start Date End Date Dylan Christianson MD [address] [place] [address] [phone] PCP - General 05/10/20
--- OUTSIDE RECORDS SUMMARY | 2024-10-27 18:20 | XMS_ITS | Clinical Summary ---
Author Organization [facility] Address [address] [place] [address] Care Team Providers Care Security Manager Name Role Phone Unavailable Primary Care Provider [...]
== END 2024-10-27 16:04 | disposition home or self-care (01) ==
LOC: HO.HKA 15:24
PROVIDERS: PCP Internal Medicine; Visit Provider Internal Medicine Nephrology
DX: I15.1 Hypertension secondary to other renal disorders (principal); N18.31 Chronic kidney disease, stage 3a; N04.1 Nephrotic syndrome with focal and segmental glomerular lesions; R80.8 Other proteinuria
CPT/HCPCS: 99214

== ENCOUNTER → 2024-10-27 15:24 | Outpatient (BNVA) | payer OTHER, SELFPAY | PROVIDERS: PCP Internal Medicine; Visit Provider Internal Medicine Nephrology | DX: M18.31 Unilateral post-traumatic osteoarthritis of first carpometacarpal joint, right hand (principal); N04.1 Nephrotic syndrome with focal and segmental glomerular lesions; R80.8 Other proteinuria; I15.1 Hypertension secondary to other renal disorders | CPT/HCPCS: 99212 ==

== ENCOUNTER 2025-01-21 14:15 | Outpatient (REF) | payer OTHER, SELFPAY ==
[2025-01-21 17:09] LABS: Anion Gap 12 (12-20); Blood Urea Nitrogen 39 mg/dL (9-16); Carbon Dioxide 26 mmol/L (22-29); Chloride 106 mmol/L (96-108); Estimated Glomerular Filt Rate 27; Potassium 4.5 mmol/L (3.3-5.1); Sodium 139 mmol/L (135-145)
[2025-01-21 17:45] LABS: Protein/Creatinine Ratio, Ur 4.64 (<0.2); Total Protein Urine Random 231 mg/dL (<12)
--- OUTSIDE RECORDS SUMMARY | 2025-01-21 18:27 | XMS_ITS | Clinical Summary ---
Author Organization [facility] Address [address] [place] [address] Phone Care Team Providers Care Data Warehousing Manager Name Role Phone Lev Gordon MD Primary [...] a day for 30 day(s) 2 Active magnesium oxide 500 mg Tab Take [...] Take 500 mcg by mouth daily. Active levothyroxine (SYNTHROID, LEVOTHROID) 100 MCG tablet Take 2 tablets (200 mcg total) by mouth. 2 pills orally four days/week, 1 tab three days/week, or as directed 4 Active empagliflozin (JARDIANCE) 25 mg tablet Take 25 mg by mouth daily. Active semaglutide (OZEMPIC) 2 mg/dose (8 mg/3 mL) subcutaneous injection penIndications:T ype 2 diabetes with nephropathy Inject 2 mg under the skin every 7 days. 6 mL 1 4 Active Additional Information Patient taking differently:2 mg Subcutaneous Every 7 days,On Fridays, Reported on 11/02/2024 clonazePAM (KLONOPIN) 0.5 MG tablet Take 0.5 mg by mouth 3 (three) times a day. 5 Active fluticasone propionate (FLONASE) 50 mcg/actuation nasal spray 1 spray by Nasal route as needed. 4 Active atorvastatin (LIPITOR) 80 MG tablet Take 40 mg by mouth nightly at bedtime. 5 Active Active Problems Problem Noted Date Diagnosed Date Allergic rhinitis 11/28/2022 11/28/2022 Overview (11/28/2022): Sep 23, 2011 Entered By: CESAR ROD Comment: on allergy injections since 2010 Anemia 11/28/2022 11/28/2022 Carpal tunnel syndrome 11/28/2022 3 Constipation 11/28/2022 11/28/2022 Erectile dysfunction 11/28/2022 11/28/2022 [...] Acquired hypothyroidism 07/05/2022 07/06/19 Assessment & Plan (11/02/2024 11:18 AM EDT): Euthyroid on recent labs. Assessment & Plan (01/01/2024 4:52 PM EST): [...] with nephropathy 07/05/2022 07/05/2022 Assessment & Plan (11/02/2024 11:20 AM EDT): Control reasonable, not optimal, HbA1c remains > target has been in a lot of pain/less active w/ back pain. He is hoping to get more active & will [facility] vaunjaro which may have better weight/glycemic benefit. Continue to work on eating healthy & keeping active. To call or send in BG with problems with glycemic control. Scheduled with ophtho. Following w/ renal. BP controlled. On ARB & SGLTi Assessment & Plan (01/01/2024 4:54 PM EST): [...] & no SMBG. Had labs today via [place], will send me results via portal & [...] cause hypoglycemia. In agreence with the patient's bowling floor manager, Dr Presley, that it is safe for the patient to continue using 500 mg BID of metformin. He is scheduled to meet with a pharmacist at the [facility] to start using ozempic to replace his [...] with peripheral neuropa thy Assessment & Plan (11/02/2024 11:20 AM EDT): Sees podiatry. Assessment & Plan (01/01/2024 4:54 PM EST): Sees podiatry. Assessment & Plan (06/20/2023 5:08 PM EDT): Sees podiatry. Long-term current use of inj ectable noninsulin antidiabetic medication prison current use of oral hypoglycemic drug Tinea pedis of both feet Assessment & Plan (01/01/2024 4:54 PM EST): Persistent. Rx per podiatry Assessment & Plan (11/28/2022 5:18 PM EDT): Rx per podiatry Encounters Date Type Department Care Team Description 11/02/2024 8:40 AM EDT Office Visit [facility] Endocrinology [address] [facility] [place] [address] Myla Cowan MD Type 2 diabetes mellitus with peripheral neuropathy (Primary Dx); Type 2 diabetes with nephropathy; Acquired hypothyroidism; prison current use of oral hypoglycemic drug; Long-term current use of injectable noninsulin antidiabetic medication from Last 3 Months Immunizations Immunization Administration Dates Next Due COVID-19 (Pre-12/09) Moderna Vaccine, mRNA, PF 01/22/2022 DTaP, unspecified formulation 06/19/2010 [id number] FORMULATION 03/15/2009 Hepatitis B 05/12/2014,11/12/2013,10/12/2013 INFLUENZA, SPLIT VIRUS, TRIVALENT PF 10/31/2023, 11/15/2016 INFLUENZA, SPLIT VIRUS, TRIV ALENT W/ PRESERVATIVE IM 10/30/2018,12/07/2015,11/08/2013,12/11,12/11/2010 Influenza Quadrivalent Prese rvative Free IM 11/16/2020,11/17/2017 Influenza quadrivalent nasal 11/16/2014 Influenza, Unspecified Formulation 12/24/2021 Influenza, whole 11/24/2009,11/07/2008, 8 Pneumococcal conjugate PCV13 10/12/2013,10/07/19 14 Pneumococcal polysaccharide PPSV23 11/18/2016,,12/27/2005 Pneumococcal, Unspecified Formulation 10/27/2006 Td, unspecified formulation 04/15/2002 Tdap 03/29/2020,06/19/2010 Zoster live 01/05/2014 Zoster recombinant 02/27/2022,12/31/2021 Social History Tobacco Use Types Packs/Day Years [...] Sign Reading Time Taken Comments Blood Pressure 134/70 11/02/2024 8:35 AM EDT Pulse 56 11/02/2024 8:35 AM EDT Temperature 35.7 C (96.3 F) 11/02/2024 8:35 AM EDT Respiratory Rate - - Oxygen Saturation 98% 11/02/2024 8:35 AM EDT Inhaled Oxygen Concentration - - Weight 105.3 kg (232 lb 3.2 oz) 11/02/2024 8:35 AM EDT Height 170.2 cm (5' 7.01 ) 11/02/2024 8:35 AM ED T Body Mass Index 36.36 11/02/2024 8:35 AM EDT Plan of Treatment Upcoming Encounters Date Type Department Care Team (Late st Contact Info) Description 05/10/2025 8:40 AM EDT Office Visit [facility] Endocrinology [address] [phone] Myla Cowan MD [address] [place] [phone] [email or web address] Health Maintenance Due Date Last Done Comments DEPRESSION SCREENING 1973 HEPATITIS C SCREENING 1979 HIV ONE-TIME SCREENING (18-65 YEARS) 1979 COLOGUARD 2006 COLONOSCOPY 2006 COLORECTAL CANCER SCREENING 2006 FIT TEST 2006 FOBT 2006 SIGMOIDOSCOPY 2006 VIRTUAL COLONOSCOPY 2006 RSV VACCINE (1 - Risk 50-74 years 1-dose series) 2011 PNEUMOCOCCAL VACCINES (50+ years) (4 of 4 - PCV20 or PCV21) 11/18/2021 11/18/2016, 10/12/2013, 10/06/2013, Additional history exists HEMOGLOBIN A1C 06/28/2024 12/30/2023 INFLUENZA VACCINE (#1) 2024 , 12/24/2021, 11/16/2020, Additional history exists COVID-19 VACCINE (4 - season) 2024 01/22/2022, 12/18/2020, 11/27/2020 CREATININE LEVEL 12/29/2024 12/30/2023 POTASSIUM LEVEL 12/29/2024 12/30/2023 TSH LEVEL 12/29/2024 12/30/2023 DIABETIC EYE EXAM 01/12/2025 01/13/2024 BLOOD PRESSURE 05/02/2025 11/02/2024 SMOKING Hx and SMOKELESS TOBACCO SCREENING 11/02/2025 11/02/2024 Adult Td,Tdap Booster 03/29/2030 03/29/2020 , 06/19/2010, 04/15/2002 ZOSTER VACCINES Completed 02/27/2022, 12/18, 01/05/2014 HEPATITIS [...] PM EST Acquired hypothyroidism BASIC METABOLIC PANEL (BMP) Routine 12/30/2023 3:07 PM EST Type 2 diabetes with nephropathy from Last 3 Months or Most Recently Relevant to Health Maintenance Results * (ABNORMAL) TSH with reflex (12/30/2023 3:07 PM EST) TSH 0.20(L) 0.27 - 4.20 uIU/mL [facility] Blood 12/30/2023 3:07 PM EST 12/30/2023 3:09 PM EST us Myla Cowan MD LAB BLOOD BKR ORDERABL ES Final Result Performing Organization Address City/[facility]/ZIP Co de Phone Number [address] [address] * (ABNORMAL) Hemoglobin A1c (12/30/2023 3:07 PM EST) Pathologist [facility] HEMOGLOBIN A1C 7.6(H) 4.3 - 5.8 % [facility] Blood 12/30/2023 3:07 PM EST 12/30/2023 3:09 PM EST us Myla Cowan MD LAB BLOOD BKR ORDERABL ES Final Result Performing Organization Address City/[facility] Co de Phone Number [address] [address] * (ABNORMAL) Basic metabolic panel (12/30/2023 3:07 PM EST) Pathologist [facility] SODIUM 140 133 - 146 mmol/L [facility] CHLORIDE 104 96 - 108 mmol/L [facility] POTASSIUM 5.2(H) 3.3 - 5.1 mmol/L [facility] CO2 27 21 - 35 mmol/L [facility] BUN 39(H) 6 - 19 mg/dL [facility] CREATININE 2.00(H) 0.5 - 1.5 mg/dL [facility] GLUCOSE 177(H) 70 - 99 mg/dL [facility] CALCIUM 9.6 8.4 - 10.3 mg/dL [facility] EGFR 37(L) >59 mL/min/1.7 3m2 [facility] Comment:Estimated glomerular filtration rate calculated using the CKD-EPI refit equation. ANION GAP 14 10 - 20 mmol/L [facility] Blood 12/30/2023 3:07 PM EST 12/30/2023 3:09 PM EST us Myla Cowan MD LAB BLOOD BKR ORDERABL ES Final Result [facility] [address] [place] [address] from Last 3 Months or Most Recently Relevant to Health Maintenance Insurance [facility] AENA PPO [facility] AETNA PPO [facility] AETNA PPO [facility] AETNA PPO [facility] T PPO [facility] AETNA PPO Care Teams Data Warehousing Manager Relationship Specialty Start Date End Date Lev Gordon MD [address] [place] [id number] PCP - General Internal Medicine 05/16/21 Gato Álvarez MD [address] [place] [phone] Nephrology 01/01/24 Additional Source Comments The information contained in this document represents components of the legal health record. It is not the complete legal health record.[facility]
--- OUTSIDE RECORDS SUMMARY | 2025-01-21 18:27 | XMS_ITS | Data Portability ---
Author Organization [place] - [facility] , [address] Address [address] [place] [address] Assessment No assessment recorded. Plan of Treatment Reminders Order Date Submit Date Provider Last Modified By Organization Details Last Modified Time Details Appointments None recorded. Lab None recorded. Referral emergency medicine referral 2022 023 [email or web address] Not available 13:40:55 Procedures None recorded. Surgeries None recorded. Imaging None recorded. Medication Orders None recorded. Patient TargetsNo targets recorded. Patient InstructionsNo instructions recorded. Reason for Referral Emergency Medicine Referral for Swelling of lower leg Referring Physician: Hardik Taylor, Urgent Care, Encounter Date: 07/10/2022 Problems Name Problem SNOMED Code Status Onset Date Resolution Date Notes Provider Name and Address Organization Details Recorded Time Diabetes mellitus 93067717 Active 2022 RHIANNA ASHLEY null, [place] - [facility] 3 12:34:05 Focal segmental glomeruloscler osis 538580756 Active 2022 RHIANNA ASHLEY null, [place] - [facility] 3 12:34:40 Disorder of thyroid gland 97613878 Active 2022 RHIANNA ASHLEY null, [place] - [facility] 3 12:34:55 Hypertensive disorder 72272226 Active 2022 RHIANNA ASHLEY null, [place] - [facility] 3 12:35:18 Hyperlipidemia 44998222 Active 2022 RHIANNA ASHLEY null, [place] - [...] Name and Address Organization Details Recorded Time 366086 Non-stero idal anti-infl ammatory agent (substanc e) medicatio n other Not available Not available 07/10/2022 24103 5008 SNOMED RHIANNA bernal, [place] - [facility] 12:29:05 508339 hazelnut allergeni c extract food headache Not available Not available 07/10/2022 73586 3 RxNorm RHIANNA bernal, [place] - [facility] 12:30:05 Medications Name [...] mass index (BMI) Body weight Oxygen saturation Heart rate Respiratory rate Body temperature Provider Name and Address Organization Details Last Updated DateTime 3 170.18 cm 2 35.6 kg/m2 611085. 47 g 97 % 62 /min 16 /min 97.9 [degF] RHIANNA RAMIREZ [place] - [facility] 3 12:42:15 Social History Question Answer Notes LastModified by MAYKOR Details LastModified Time Tobacco Smoking Status Never Smoker RHIANNA bernal [place] - [facility] 07/10/2022 12:38:07 Have You Recently Traveled Abroad? No Information not available 07/10/2022 Sex: Unknown Functional Status Question Answer Note LastModified by MAYKOR Details LastModified Time Do you use any illicit or recreational drugs? No Information not available 07/10/2022 Do you or have you ever used any other forms of tobacco or nicotine? No Information not available 07/10/2022 What is your level of alcohol consumption? None Information not available 07/10/2022 Are you currently employed? Yes Information not available 07/10/2022 Mental Status None recorded. Family History Relationship [...] Diagnosis SNOMED-CT Code Diagnosis ICD10 Code Diagnosis IMO Codes Diagnosis Note [id number] [address] [address] [place] [address] 03/30/2019 14:52:38 03/30/2019 15:26:03 [id number] [address] [place] [address] 03/24/2016 09:21:39 03/24/2016 09:58:51 [id number] [address] [place] [address] 03/03/2020 16:08:12 03/03/2020 17:27:39 [id number] Hardik Taylor MD [address] [place] [address] 07/10/2022 12:15:05 07/10/2022 13:10:07 Swelling of lower leg 882650038 R22.40 Tender swelling in the right posterior legCant rule out DVTPatient [place] go to [place] called by Laura DAVEY Health Concerns Section Related Observation LastModified by Organization Detai ls LastModified Time None Recorded Concern Status LastModified by Organization Details LastModified Time None Recorded Advance Directives Directive None Recorded Payers Insurance Date Sequence Insurance Name Policy Number Policy Prasad Covered Member ID Prasad Member ID Guarantor Name 07/10/2022 1 [employer] [id number] Major Argueta Madeleine [id number] Major Argueta Madeleine 07/10/2022 AET[employer] (PPO) [id number] Major Argueta Madeleine [id number] Major Argueta Madeleine 07/10/2022 [facility] Major Argueta Madeleine [id number] Major Argueta Madeleine Notes Date Note Type Note Provider Name and Address Organization Details Recorded Time 07/11/19 23 text/htm l KneeReported by PatientHPIFor associated symptoms, patient reportsswellingandrednessbut reportsno weakness,no numbness, andno tingling. For location, patient reportsright. For quality, patient reportsthrobbing,dull,deep, andworsening. For severity, patient reportsmoderate. For duration, patient reports1 days. For timing, patient reportscannot identify. For context, patient reportscannot identify. For previous surgery, patient reportsnone. For prior imaging, patient reportsnone. NO recent travel, no history Blood clots Hardik Taylor MD [facility] [place], [address], [place] - [facility] 07/11/2022 08:18:22
--- OUTSIDE RECORDS SUMMARY | 2025-01-21 18:27 | XMS_ITS | Clinical Summary ---
Author Organization [facility] Address [address] [place] [address] Care Team Providers Care Executive Secretary Name Role Phone Unavailable Primary Care Provider [...] - 2023-2 5 season) 2024 RSV Vaccine 50 years and old er and Patients (1 - 1-dose 75+ series) 01/10/2036 Hepatitis B Vaccines Aged Out No long er eligible based on patient's age to complete this topic
--- OUTSIDE RECORDS SUMMARY | 2025-01-21 18:27 | XMS_ITS | Clinical Summary ---
Author Organization [facility] Address [address] [place] [address] Care Team Providers Care Polysomnographic Tech Name Role Phone Downey, Araceli Griffin MD [...] 2011 Zoster Vaccines (1 of 2) 2011 Depression Screening 02/18/2024 COVID-19 Vaccine (1 - 2024-2 6 season) 2024 Influenza Vaccine (#1) 2024 RSV Immunization Adult [...] age to complete this topic Care Teams Polysomnographic Tech Relationship Specialty Start Date End Date Araceli Downey MD [address] [place], [place] [address] [facility] [place] PCP - General Internal Medicine 09/02/16
--- OUTSIDE RECORDS SUMMARY | 2025-01-21 18:27 | XMS_ITS | Encounter Summary ---
Author Organization [facility] Address [address] [place] [address] Care Team Providers Care Charging Crane Operator Name Role Phone Unavailable Primary Care Provider Unavailabl e Encounter Details Date Type Department Care Team (Late st Contact Info) Description 08/30/2021 Scanned Document [address] [address] Podiatry, Scan Social History Tobacco [...]
== END 2025-01-21 14:16 | disposition home or self-care (01) ==
LOC: HO.HMGCLDS 14:15
PROVIDERS: PCP Internal Medicine; Visit Provider Internal Medicine Nephrology
DX: I12.9 Hypertensive chronic kidney disease with stage 1 through stage 4 chronic kidney disease, or unspecified chronic kidney disease (principal); N18.31 Chronic kidney disease, stage 3a; R80.8 Other proteinuria
CPT/HCPCS: 36415; 80051; 82565; 82570; 84156; 84520

== ENCOUNTER 2025-01-26 15:25 | Outpatient (AMB) | payer OTHER, SELFPAY ==
--- NOTE | 2025-01-26 15:35 | HO.NEPHOV_ITS ---
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 He had a renal biopsy which showed FSGS and diabetic nephropathy. His blood sugars are still running high but better. He is on Ozempic. He is tolerating Jardiance well. He was on sparsentan which has been changed to Irbesartan. He has no edema. [facility] Medical History Hypertension FSGS (focal segmental glomerulosclerosis) with nephrosis Chronic kidney disease, stage 3a Proteinuria Surgical History History of tonsillectomy and adenoidectomy History of prostate surgery History of back surgery Social History Alcohol intake: never Patient Tobacco Use Status: Former Tobacco user Review of Systems Const All systems reviewed & are unremarkable except as noted in HPI and below Physical Exam Vital Signs: Last Vital Signs Pulse 66 01/26/25 15:36 BP 124/80 01/26/25 15:36 Pulse Ox 96 01/26/25 15:36 Oxygen Delivery Method Room Air 01/26/25 15:36 BMI result Body Mass Index 36.1 Const General: comfortable and no acute distress Orientation/consciousness: patient oriented x3 HEENT Head: Yes normocephalic Mouth: Normal oral and palatal mucosa present Eyes EOM: EOMs intact bilaterally Neck Neck: Yes supple Resp Auscultation: clear to auscultation bilaterally Cardio Jugular venous distension: no JVD Rate: regular rate GI Palpation (GI): Soft to palpation Auscultation: normal bowel sounds General: Yes no CVA tenderness Back/Spine/Pelvis Back: no CVA tenderness Skin General skin exam: no rashes or lesions noted Neuro General: patient oriented x3 and moves all extremities Extrem General: Yes no pedal edema Results Reviewed Nephrology Results: Hgb, (14.0-18.0) 14.4 g/dl 03/22/24 WBC, (4.8-10.8) 8.1 X10*3/uL 03/22/24 Plt Count, (160-400) 237 X10*3/uL Δ 03/22/24 Sodium, (135-145) 139 mmol/L 01/21/25 Potassium, (3.3-5.1) 4.5 mmol/L 01/21/25 Chloride, (96-108) 106 mmol/L 01/21/25 Carbon Dioxide, (22-29) 26 mmol/L 01/21/25 BUN, (9-16) 39 mg/dL H 01/21/25 Creatinine, (0.5-1.4) 2.40 mg/dL H 01/21/25 Calcium, (8.4-10.2) 9.4 mg/dL 03/22/24 Urine Creatinine 49.83 mg/dL 01/21/25 Protein/Creatinin Ratio, (<0.2) 4.64 H 01/21/25 Assessment & Plan Assessment & Plan (1) FSGS (focal segmental glomerulosclerosis) with nephrosis: Code(s): N04.1 - Nephrotic syndrome with focal and segmental glomerular lesions Category: Medical (2) Proteinuria: Code(s): R80.9 - Proteinuria, unspecified Category: Medical Qualifiers: Proteinuria type: other Qualified Code(s): R80.8 - Other proteinuria (3) Chronic kidney disease, stage 3a: Code(s): N18.31 - Chronic kidney disease, stage 3a Category: Medical (4) Hypertension: Code(s): I10 - Essential (primary) hypertension Category: Medical Qualifiers: Hypertension type: secondary to other renal disorders Qualified Code(s): I15.1 - Hypertension secondary to other renal disorders Plan Braden carries a diagnosis of biopsy-proven primary FSGS. He has taken immunosuppression in the past. He has history of prostate cancer needing surgery. He had been on sparsentan which was changed to Irbesartan( as he is not in the FSGS study anymore) . His serum creatinine has been stable. He is on Jardiance. He has no retinopathy or neuropathy. He needs to lose more weight and keeps his blood sugar under better control. He avoids nonsteroidal anti- inflammatories and maintain good hydration. I reiterated the importance of blood sugar control, lifestyle modification, weight loss and importance of monitoring potassium, renal functions and urine protein. I answered all his questions.F/U given Orders: Orders Protein Creatinine Ratio, Ur 3 Months I15.1 - Hypertension secondary to other renal disorders, N04.1 - Nephrotic syndrome with focal and segmental glomerular lesions, N18.31 - Chronic kidney disease, stage 3a, R80.8 - Other proteinuria Creatinine 3 Months I15.1 - Hypertension secondary to other renal disorders, N04.1 - Nephrotic syndrome with focal and segmental glomerular lesions, N18.31 - Chronic kidney disease, stage 3a, R80.8 - Other proteinuria Electrolytes 3 Months I15.1 - Hypertension secondary to other renal disorders, N04.1 - Nephrotic syndrome with focal and segmental glomerular lesions, N18.31 - Chronic kidney disease, stage 3a, R80.8 - Other proteinuria Blood Urea Nitrogen 3 Months I15.1 - Hypertension secondary to other renal disorders, N04.1 - Nephrotic syndrome with focal and segmental glomerular lesions, N18.31 - Chronic kidney disease, stage 3a, R80.8 - Other proteinuria Coding Level of Care Code Est Pt Level 4 (86042) Diagnoses FSGS (focal segmental glomerulosclerosis) with nephrosis N04.1 Other proteinuria R80.8 Proteinuria type: other Chronic kidney disease, stage 3a N18.31 Hypertension secondary to other renal disorders I15.1 Hypertension type: secondary to other renal disorders
[2025-01-26 15:36] VITALS: BP 124/80; PULSE 66; O2SAT 96; BMI 36.1
--- OUTSIDE RECORDS SUMMARY | 2025-01-26 23:59 | XMS_ITS | Clinical Summary ---
Author Organization [facility] Address [address] [place] [address] Phone Care Team Providers Care Medical Transcription Name Role Phone Dylan Christianson MD Primary [...] mouth 1 (one) time each day Active [place]-3 Fatty Acids (Fish Oil) 1000 MG capsule [...] Overview (02/13/2023): Aug 17, 2022 Entered By: DYALN OCONNELL Comment: 2022 sleep study moderate LYN, AHI 26- on CPAP Other hypertrophic disorder of the skin 02/14/2002/13/2023 Other specified counseling 02/13/202302/13 Primary IgA nephropathy 02/13/2023 02/14/20 Overview (02/13/2023): Nov 13, 2006 Entered By: KAYDEN CHESTER Comment: focal segmental glomerulosclerosis [facility] Entered By: KAYDEN CHESTER Comment: Proteinuria [...] 01/18/2022 Overview (03/20/2022): repeat screening in 2026 Hammer toe 09/12/2021 Acquired hammer toe of right foot [...] 30+ - obesity 03/14/2021 03/14/2021 Overview (03/14/2021): residential child care counselor Carpal tunnel syndrome 03/14/202103/14 Chronic rhinitis [...] mg/dl PVNMA 08/23/2019 us Rtama Conversion LAB [id number] LICITED RESULTS Final Result PVNMA from Last 3 Months or Most Recently Relevant to Health Maintenance Insurance Aetna Commercial Aetna Commercial Care Teams Medical Transcription Relationship Specialty Start Date End Date Dylan Christianson MD [address] [place] [id number] PCP - General 05/10/20
--- OUTSIDE RECORDS SUMMARY | 2025-01-26 23:59 | XMS_ITS | Clinical Summary ---
Author Organization [facility] Address [address] [place] [address] Care Team Providers Care Asbestos Shingle Roofer Name Role Phone Downey, Araceli Griffin MD [...] age to complete this topic Care Teams Asbestos Shingle Roofer Relationship Specialty Start Date End Date Araceli Downey MD [address] [place], [place] [address] ID PCP - General Internal Medicine 09/02/16
--- OUTSIDE RECORDS SUMMARY | 2025-01-26 23:59 | XMS_ITS | Clinical Summary ---
Author Organization [facility] Address [address] [place] [address] Care Team Providers Care Clinical Marketing Manager Name Role Phone Unavailable Primary Care [...]
--- OUTSIDE RECORDS SUMMARY | 2025-01-26 23:59 | XMS_ITS | Patient Health Record ---
Author Organization [facility] Address [address] [place] [address] Care Team Providers Care Director Erp Name Role Phone [facility] Primary Car e Provider Unavailable BOBBI Hendrix Unavailable Allergies Allergen (clinical drug ingredient) Drug/Non Drug Allergy documented on EMR Reaction Allergy Type Onset Date Status Non-steroidal anti-inflammatory agent (FN) NSAIDs risk-kidney failure Drug Allergy Active Tree Nuts migraine headache Allergy Active Reason For Referral No Information Medications Medication SIG (Take, Route, Frequency, Duration) Notes Start Date End Date Status STUDY MED 4 TABS FSGS ORALLY QD tomorrow restarting med 03/29/21 *Please review for potential replacement for e-prescription and drug interaction check* Active Baclofen 10 MG Tablet 1 tab orally three times a day Active Magnesium 400MG 500MG, 1 TAB ORALLY ONCE A DAY AT BEDTIME NAME ONLY Conversion from Multum Review and pick correct strength-formulatio n from IMGuestan options. If intended option is not shown, discontinue and re-order from Quick Search. Active Vitamin D3 50 MCG (1999 UT) Tablet 1 tab orally once a day Active Vitamin B 12 500 MCG Tablet 1 tab friday, orally 2x weekly Active Fish Oil 1000 MG Capsule 1 tab Orally twice a day b.i.d. NAME ONLY Conversion from Multum Review and pick correct strength-formulatio n from IMGuestan options. If intended option is not shown, discontinue and re-order from Quick Search. Active amLODIPine Besylate 5 MG Tablet 1 tab(s) Orally once a day Active Levothyroxine Sodium 100 MCG Tablet 2 tabs Mon-Fri, 1 tab on Sat & Sun orally once a day Active Jardiance 10 MG Tablet 1 tab(s) orally once a day (in the morning) 06/02/2020 Active metFORMIN HCl 1000 MG Tablet 1/2 tab am, 1 tab pm or as directed orally twice a day Active CPAP *Please review f or potential replacement for e-prescription and drug interaction check* Active Atorvastatin Calcium 40 MG Tablet 1 tab(s) orally once a day Active Aspir-Low 81 MG Tablet Delayed Release 1 tab(s) orally once a day; Duration: 30 day(s) Active Social History Tobacco Use: Social History Observation Description Date Details (start date - stop date) Former Smoker NA - NA Social History Tobacco Use: Social Info Question Answer Notes Smoking Are you a: former smoker Additional Details Category Social Info Options Details General Occupation: [employer], [place] asbestos exposure: unknown Past year's travels: None alcohol use: yes 1 beer monthly drug use: no Coffee/Tea/Soda: yes Coffee (decaf) 2-5 daily, Tea 1 weekly, No Soda Marital Status experience yes [place] Living with smokers in household no Problems Problem Type SNOMED Code ICD Code Onset Dates Problem Status W/U Status Risk Notes Problem Hypothyroid (51930816) Hypothyroid (E03.9) Active confirmed Problem Type 2 diabetes mellitus (42243877) Type 2 diabetes mellitus (E11.9) Active confirmed Plan Of Treatment Future Test Test Name Order Date GLYCOHEMOGLOBIN (HBA1C) 09/07/2020 TSH WITH REFLEX TO FT4 09/07/2020 TSH WITH REFLEX TO FT4 02/03/2021 Insurance Providers Payer Name Payer Address Payer Phone Subscriber Number Group Number Insured Name Patient Relationship to Insured Coverage Start Date Coverage End Date [employer] [address] REBEKAH BRISENO [phone] [id number] ELIZABETH SMILEY Self - patient is the insured Medical (General) History Medical History History ICD Code Type 2 Diabetes - dx ~ 2003 Hypertension Hyperlipidemia Seasonal Allergies Prostate Cancer GERD Migraine Headaches CKD - FSGS - Henri Pneumonia (walking) Hypothyroidism chronic back pain - Majo Rosales (neuro - [facility]) Surgical History Surgery Date(Month/Year) Prostatectomy 12/20/2002 Discectomy L5-S1 09/2016 Partial Back Fusion L5-S1 04/2017 Deviated Sptum ?1997 Tonsillectomy/Adenoidectomy sleep apnea
--- OUTSIDE RECORDS SUMMARY | 2025-01-27 00:03 | XMS_ITS | Data Portability ---
Author Organization [place] - [facility] , [address] Address [address] [place] [address] Assessment No assessment recorded. Plan of Treatment [...] Address Organization Details Recorded Time Diabetes mellitus 56302325 Active 2022 RHIANNA ASHLEY null, [place] - [facility] 3 12:34:05 Focal segmental glomeruloscler osis 684070428 Active 2022 RHIANNA ASHLEY [place] - [facility] 12:34:40 Disorder of thyroid gland 95389737 Active 2022 RHIANNA ASHLEY [place] - [facility] 12:34:55 Hypertensive disorder 62793688 Active 2022 RHIANNA ASHLEY null[place] - [facility] 12:35:18 Hyperlipidemia 90218128 Active 2022 RHIANNA ASHLEY null, [place] - [...] Name and Address Organization Details Recorded Time 874540 Non-stero idal anti-infl ammatory agent (substanc e) medicatio n other Not available Not available 07/10/2022 46612 5008 SNOMED RHIANNA [place]ernal[place] - [facility] 12:29:05 311557 hazelnut allergeni c extract food headache Not available Not available 07/10/2022 21143 3 RxNorm RHI[facility]ernal, [place] - [facility] [...] DateTime 3 170.18 cm 2 35.6 kg/m2 854419. 47 g 97 % 62 /min 16 /min 97.9 [degF] RHIANNA RAMIREZ [place] - [facility] 3 12:42:15 Social History Question Answer Notes LastModified by Fashionchick Details LastModified Time Tobacco Smoking Status Never Smoker RHIANNA bernal [place] - [facility] 07/10/2022 12:38:07 Have You Recently Traveled Abroad? No Information not available 07/10/2022 Sex: Unknown Functional Status Question Answer Note LastModified by Fashionchick Details LastModified Time Do you use any [...] ICD10 Code Diagnosis IMO Codes Diagnosis Note [id number] [address] [address] [place] [address] 03/30/2019 14:52:38 03/30/2019 15:26:03 [id number] [address] [facility] [address] [place] [address] 03/24/2016 09:21:39 03/24/2016 09:58:51 [id number] [address] [place] [address] 03/03/2020 16:08:12 03/03/2020 17:27:39 [id number] Hardik Taylor MD [address] [place] [address] 07/10/2022 12:15:05 07/10/2022 13:10:07 Swelling of lower leg 507360836 R22.40 Tender swelling in the right posterior legCant rule out DVTPatient will go to [place] Laura DAVEY Health Concerns Section Related Observation LastModified by Organization Detai ls LastModified Time None Recorded Concern Status LastModified by Organization Details LastModified Time None Recorded Advance Directives Directive None Recorded Payers Insurance Date Sequence Insurance Name Policy Number Policy Prasad Covered Member ID Prasad Member ID Guarantor Name 07/10/2022 1 [employer] [id number] Major Argueta Madeleine [id number] Major Argueta Madeleine 07/10/2022 AET[employer] (PPO) [id number] Major Argueta Madeleine [id number] Major Argueta Madeleine 07/10/2022 [facility] Major Argueta Madeleine [id number] Major Argueta Madeleine Notes Date Note Type [...] history Blood clots Hardik Taylor MD [facility] [place], [address], [place] [facility] 07/11/2022 08:18:22
--- OUTSIDE RECORDS SUMMARY | 2025-01-27 00:03 | XMS_ITS | Clinical Summary ---
Author Organization [facility] Address [address] [place] [address] Phone Care Team Providers Care Voucher Examiner Name Role Phone Lev Gordon MD Primary [...] & no SMBG. Had labs today via ID, will send me results via portal & [...] cause hypoglycemia. In agreence with the patient's film recordist, Dr Presley, that it is safe for the patient to continue using 500 mg BID of metformin. He is scheduled to meet with a pharmacist at the [facility] to start using ozempic to replace [...] use of inj ectable noninsulin antidiabetic medication emt intermediate current use of oral hypoglycemic drug Tinea pedis of both feet Assessment & Plan (01/01/2024 4:54 PM EST): Persistent. Rx per podiatry Assessment & Plan (11/28/2022 5:18 PM EDT): Rx per podiatry Encounters Date Type Department Care Team Description 11/02/2024 8:40 AM EDT Office Visit [facility] Endocrinology [place] [address] [place] [address] Myla Cowan MD Type 2 diabetes mellitus with peripheral neuropathy (Primary Dx); Type 2 diabetes with nephropathy; Acquired hypothyroidism; skilled nursing current use of oral hypoglycemic drug; Long-term current use of injectable noninsulin antidiabetic medication from Last 3 Months Immunizations Immunization Administration Dates Next Due COVID-19 (Pre-12/09) Moderna Vaccine, mRNA, PF 01/22/2022 DTaP, unspecified formulation 06/19/2010 [id number] FORMULATION 03/15/2009 Hepatitis B 05/12/2014,11/12/2013,10/12/2013 INFLUENZA, SPLIT [...] Description 05/10/2025 8:40 AM EDT Office Visit [facility] Endocrinology [address] [phone] Myla Cowan MD [address] [place] [phone] [email or web address] Maintenance Due Date Last Done Comments [...] EST) TSH 0.20(L) 0.27 - 4.20 uIU/mL [facility] Blood 12/30/2023 3:07 PM EST 12/30/2023 3:09 PM EST us Myla Cowan MD LAB BLOOD BKR ORDERABL ES Final Result Performing Organization Address City/[facility]/ZIP Co de Phone Number [address] [address] * (ABNORMAL) Hemoglobin A1c (12/30/2023 3:07 PM EST) Pathologist [facility] HEMOGLOBIN A1C 7.6(H) 4.3 - 5.8 % [facility] Blood 12/30/2023 3:07 PM EST 12/30/2023 3:09 PM EST us Myla Cowan MD LAB BLOOD BKR ORDERABL ES Final Result Performing Organization Address City/[facility] Co de Phone Number [address] [address] * (ABNORMAL) Basic metabolic panel (12/30/2023 3:07 PM EST) Pathologist [facility] SODIUM 140 133 - 146 mmol/L [facility] CHLORIDE 104 96 - 108 mmol/L [facility] POTASSIUM 5.2(H) 3.3 - 5.1 mmol/L [facility] CO2 27 21 - 35 mmol/L [facility] BUN 39(H) 6 - 19 mg/dL [facility] CREATININE 2.00(H) 0.5 - 1.5 mg/dL [facility] GLUCOSE 177(H) 70 - 99 mg/dL [facility] CALCIUM 9.6 8.4 - 10.3 mg/dL [facility] EGFR 37(L) >59 mL/min/1.7 3m2 [facility] Comment:Estimated glomerular filtration rate calculated using the CKD-EPI refit equation. ANION GAP 14 10 - 20 mmol/L [facility] Blood 12/30/2023 3:07 PM EST 12/30/2023 3:09 PM EST us Myla Cowan MD LAB BLOOD BKR ORDERABL ES Final Result [facility] [address] [place] [address] from Last 3 Months or Most Recently Relevant to Health Maintenance Insurance [facility] PPO [facility] A[employer]NA PPO [facility] A[employer]NA PPO [facility] AETNA PPO [facility] T PPO [facility] AETNA PPO Care Teams Voucher Examiner Relationship Specialty Start Date End Date Lev Gordon MD [address] [place] [id number] PCP - General Internal Medicine 05/16/21 Gato Álvarez MD [address] [place] [address] Nephrology 01/01/24 Additional Source Comments The information contained in this document represents components of the legal health record. It is not the complete legal health record.[facility]
== END 2025-01-26 16:12 | disposition home or self-care (01) ==
LOC: HO.HKA 15:26
PROVIDERS: PCP Internal Medicine; Referring Provider Internal Medicine Nephrology; Visit Provider Internal Medicine Nephrology
DX: N04.1 Nephrotic syndrome with focal and segmental glomerular lesions (principal); R80.8 Other proteinuria; N18.31 Chronic kidney disease, stage 3a; I15.1 Hypertension secondary to other renal disorders
CPT/HCPCS: 99214

== ENCOUNTER → 2025-01-26 15:25 | Outpatient (BNVA) | payer OTHER, SELFPAY | PROVIDERS: PCP Internal Medicine; Visit Provider Internal Medicine Nephrology | DX: N04.1 Nephrotic syndrome with focal and segmental glomerular lesions (principal); I15.1 Hypertension secondary to other renal disorders; N18.31 Chronic kidney disease, stage 3a; R80.8 Other proteinuria; Z87.891 Personal history of nicotine dependence | CPT/HCPCS: 99212 ==